=== PATIENT | male | born 1990 | race Caucasian/White ===

== ENCOUNTER 2016-04-03 22:23 | Inpatient (IN) | payer MEDICAID, OTHER ==
[~2016-04-03] VITALS: Ht 157.5 cm; Wt 100.2 kg
[~2016-04-03 22:23] MED LIST: HYDR-3498 PO
[2016-04-04] VITALS (14 sets, daily range): BP systolic 109–152; BP diastolic 60–87; PULSE 96–108; RESP 19–20
[2016-04-04] MEDS ORDERED: HYDROmorphONE 1 MG/ML SYG IV PRN (02:00)
[2016-04-04] MEDS ORDERED: HYDROCODONE/APAP (5/325) TAB PO PRN ×3 (02:00→06:00)
[2016-04-04] MEDS: HYDROmorphONE 2 MG/ML SYG IM PRN ×5 (02:42→19:54)
[2016-04-04] MEDS ORDERED: ACETAMINOPHEN 325 MG TAB PO PRN (06:00)
[2016-04-04] MEDS ORDERED: ZOLPIDEM 5 MG TAB PO PRN (06:00)
[2016-04-04] MEDS ORDERED: LIDOCAINE 1% (MDV) 20 ML INJ SC ONE (06:00)
[2016-04-04] MEDS ORDERED: NACL 0.9% 3 ML SYG IV SCH (06:00)
[2016-04-04] MEDS ORDERED: DOCUSATE SODIUM 100 MG CAP PO PRN (06:00)
[2016-04-04] MEDS ORDERED: ONDANSETRON 4 MG INJ IV PRN (06:00)
[2016-04-04] MEDS ORDERED: morphine 2 MG INJ IV PRN (06:00)
[2016-04-04] MEDS ORDERED: LEVOFLOXACIN 750MG/D5W (PMX) 150 ML IVPB SCH (07:00)
[2016-04-04] MEDS ORDERED: VANCOMYCIN IV PER PHARMACY XX SCH (07:00)
[2016-04-04] MEDS: ENOXAPARIN 40 MG/0.4 ML SYG SC SCH (08:41)
--- NOTE | 2016-04-04 09:20 | HP ---
DATE OF ADMISSION: 04/04/2016 TIME: 6 a.m. CHIEF COMPLAINT: Fevers and chills. HISTORY OF PRESENT ILLNESS: The patient is a 26-year-old male with a history of spina bifida with d ebility as well as a history of right lower extremity chronic wound, quadriplegia as a result of spi na bifida, recurrent UTIs, history of hydrocephalus status post V-P shunt with multiple revisions. The patient states that he began to notice fevers and chills yesterday. The patient does self-radha terize. The patient was hospitalized here in September 2015 for sepsis from UTI. The patient does state that his urine looks cloudy. The patient was transferred from outside facility, was noted to have tachycardia as well as leukocytosis. The patient has no other complaints at this time. PAST MEDICAL HISTORY: As per HPI. HOME MEDICATIONS: [place]. ALLERGIES: MULTIPLE, TO: 1. ACETAMINOPHEN. 2. CEFOTAXIME. 3. HYDROCODONE. 4. IBUPROFEN. 5. LATEX. 6. OXYCODONE. 7. PAPAYA. 8. ZOSYN. 9. TAZOBACTAM. FAMILY HISTORY: Noncontributory. SOCIAL HISTORY: No reports of alcohol, tobacco, or drug abuse. REVIEW OF SYSTEMS: A 12-point review of systems negative except that discussed in HPI. PHYSICAL EXAMINATION: VITAL SIGNS: Temperature is 98.2, pulse 101, respiratory rate is 19, BP is 116/70, saturation 94% o n room air. GENERAL: No acute distress, alert, and oriented. HEENT: Normocephalic, atraumatic. LUNGS: Clear to auscultation. CARDIOVASCULAR: Tachycardic. ABDOMEN: Nondistended, nontender, soft. EXTREMITIES: No clubbing, cyanosis, or edema. LABORATORIES: Not available at this time. ASSESSMENT AND PLAN: 1. Sepsis, likely secondary to urinary tract infection. The patient does have a history of multipl e episodes of sepsis from UTI. The patient was last hospitalized here in September of 2015 for a similar diagnosis. Will obtain a UA. Last culture grew Enterococcus and was treated with vancomycin and L evaquin. This will be initiated once a PICC line is placed, and the patient has been unable to get IV access. Will also consider ID consultation in the a.m. 2. History of spina bifida with quadriplegia and urinary incontinence. The patient will continue t o self-catheterize. 3. History of hydrocephalus status post V-P shunt, no acute issues. 4. Prophylaxis. Lovenox. Dictated By: CHRISTOPH STEPHENSON MD BS/NTS Conf#: [id number] DID#: [id number]
[2016-04-04] MEDS ORDERED: VANCOMYCIN 2 GM in SOD CHLORIDE 0.9% 500 ML IVPB SCH (12:00)
--- NOTE | 2016-04-04 13:56 | CONS ---
DATE OF ADMISSION: 04/04/2016 DATE OF CONSULTATION: 04/04/2016 TYPE OF CONSULTATION: Infectious Disease. REASON FOR CONSULTATION: Antibiotic management. HISTORY OF PRESENT ILLNESS: Kunal is a 26-year-old male, well known to us from numerous previous ad missions, who comes in now with fever and chills and is being seen for antibiotic management. His p roblems include: 1. Spina bifida with debility. 2. History of right lower extremity chronic wound. 3. Paraplegia as a result of the spina bifida. 4. Recurrent UTIs. 5. History of hydrocephalus status post GALLERY INTERN shunt with multiple revisions. The patient self-catheterizes. He was last hospitalized in September 2015 for sepsis from UTI. He notic ed fever and chills yesterday as well as the fact that his urine became cloudy. He also became tach ycardic and was brought to the emergency room. His white count is pending, though it was described as being elevated. PAST MEDICAL HISTORY: Operations as outlined. FAMILY HISTORY: Noncontributory. SOCIAL HISTORY: Does not smoke, drink or abuse drugs. ALLERGIES: 1. ACETAMINOPHEN. 2. CEFOTAXIME. 3. IBUPROFEN. 4. HYDROCODONE. 5. LATEX. 6. OXYCODONE. 7. PAPAYA. 8. ZOSYN. . REVIEW OF SYSTEMS: Noncontributory. PHYSICAL EXAMINATION: GENERAL: The patient is a chronically ill-appearing male who is alert, responsive, in no a cute distress. VITAL SIGNS: Stable. He is afebrile. SKIN: Without generalized rash. HEENT: Within normal limits. NECK: Supple. LYMPH NODES: None palpable. CHEST: Decreased breath sounds at the bases. HEART: Without murmur or gallop. ABDOMEN: Soft, nontender, without organosplenomegaly or masses. EXTREMITIES: Without cyanosis, clubbing, or edema. RECTAL AND GENITAL: Deferred. NEUROLOGIC EVALUATION: The patient has paraplegia. IMPRESSION AND PLAN: The patient grew enterococcus on his last visit. We will start on vancomycin and Levaquin. We will place a PICC line. I will dictate my findings to the hospitalist. Dictated By: DIAN ROUSSEAU MD, JD/BRADY Conf#: [id number] DID#: [id number]
[2016-04-04] MEDS: LEVOFLOXACIN 750MG/D5W (PMX) 150 ML IVPB SCH ×2 (17:00→18:19)
--- NOTE | 2016-04-04 17:47 | RADRPT ---
PROCEDURE: US guidance for PICC line CLINICAL INDICATION: PICC line placement TECHNIQUE: Multiple real-time images were acquired of the patient's arm utilizing a high resolutio n transducer. This was performed by the PICC line nurse for venous access. COMPARISON: None FINDINGS: Ultrasound guidance for PICC line placement. IMPRESSION: Ultrasound guidance for PICC line placement. RPTAT: AA .Lanre Burch MD, MD Date Time Electronically viewed and signed by .Lanre Burch MD, on 04/04/2016 17:46 .S/
--- NOTE | 2016-04-04 17:57 | RADRPT ---
PROCEDURE: XR Chest. CLINICAL INDICATION: Check PICC line position. TECHNIQUE: Single frontal view. COMPARISON: 10/13/2015. FINDINGS: There is a right arm PICC line with the tip in the right internal jugular vein. There is a left juan ed BRIM STRETCHER shunt catheter. There are low lung volumes. The lungs are otherwise clear. The heart size is normal. There is no pleural effusion. There is no pneumothorax. IMPRESSION: 1. Right arm PICC line tip in the right internal jugular vein. 2. Left sided BRIM STRETCHER shunt catheter. 3. Low lung volumes. 4. Otherwise unremarkable study. Results given to the PICC line nurse following the study. RPTAT: QQ .Avery Vizcarra MD, MD Date Time Electronically viewed and signed by .Avery Vizcarra MD, on 04/04/2016 17:56 .R/
[2016-04-04] MEDS: VANCOMYCIN 2 GM in SOD CHLORIDE 0.9% 500 ML IVPB SCH (18:00)
--- NOTE | 2016-04-04 18:05 | RADRPT ---
PROCEDURE: XR Chest. CLINICAL INDICATION: Check PICC line position. TECHNIQUE: Single frontal view. COMPARISON: Prior study done earlier the same day. FINDINGS: There is a right arm PICC line with the tip in the right internal jugular vein as seen previously. There is a left sided SECURITY COMPLIANCE SPECIALIST shunt catheter. There are low lung volumes. The lungs are otherwise clear . The heart size is normal. There is no pleural effusion. There is no pneumothorax. IMPRESSION: 1. Right arm PICC line tip in the right internal jugular vein as seen previously. 2. Left sided SECURITY COMPLIANCE SPECIALIST shunt catheter. 3. Low lung volumes. 4. Otherwise unremarkable study. RPTAT: QQ .Avery Vizcarra MD, MD Date Time Electronically viewed and signed by .Avery Vizcarra MD, MD on 04/04/2016 18:05 .R/
--- NOTE | 2016-04-04 18:07 | RADRPT ---
PROCEDURE: XR Chest. CLINICAL INDICATION: Check PICC line position. TECHNIQUE: Single frontal view. COMPARISON: Prior study done earlier the same day. FINDINGS: There is a right arm PICC line with the tip in the lower superior vena cava. There is a left COLLECTOR OF PORT jamey nt catheter. There are low lung volumes. The lungs are otherwise clear. The heart size is normal. There is no pleural effusion. There is no pneumothorax. IMPRESSION: 1. Satisfactory position of right arm PICC line. 2. No other change from the prior study done earlier the same day. RPTAT: QQ .Avery Vizcarra MD, Date Time Electronically viewed and signed by .Avery Vizcarra MD, on 04/04/2016 18:07 .R/
[2016-04-04 20:20] LABS: BASOPHILS % 0.3 % (0.0-2.0); EOSINOPHILS # 0.6 10^3/ul (0.0-0.5); EOSINOPHILS % 5.8 % (0.0-7.0); HEMATOCRIT 26.3 % (42.0-52.0); HEMOGLOBIN 8.6 g/dl (14.0-18.0); LYMPHOCYTES # 2.9 10^3/ul (0.8-2.9); LYMPHOCYTES % 26.4 % (15.0-51.0); MEAN CORPUSCULAR HEMOGLOBIN 27.4 pg (29.0-33.0); MEAN CORPUSCULAR HGB CONC 32.5 g/dl (32.0-37.0); MEAN CORPUSCULAR VOLUME 84.4 fl (82.0-101.0); MEAN PLATELET VOLUME 7.3 fl (7.4-10.4); MONOCYTE # 0.7 10^3/ul (0.3-0.9); NEUTROPHIL # 6.8 10^3/ul (1.6-7.5); NEUTROPHILS % 61.5 % (39.0-77.0); PLATELET COUNT 399 10^3/UL (140-440); RED BLOOD COUNT 3.12 10^6/ul (4.70-6.10); RED CELL DISTRIBUTION WIDTH 17.3 % (11.5-14.5)
[2016-04-04 20:26] LABS: CONDITION 1; LH ANALYZER COMMENTS 1
[2016-04-04 20:28] LABS: POTASSIUM 3.2 mmol/L (3.5-5.1)
[2016-04-04 20:31] LABS: CREATININE 0.49 mg/dl (0.61-1.24)
[2016-04-04] MEDS: HYDROmorphONE 2 MG/ML SYG IV PRN (23:27)
[2016-04-04] MEDS ORDERED: MAGNESIUM SULFATE 4 GM/100 ML 100 ML IVPB ONE (23:30)
[2016-04-05] VITALS (11 sets, daily range): BP systolic 117–128; BP diastolic 55–62; PULSE 85–100; RESP 16–20
[2016-04-05] MEDS: HYDROmorphONE 2 MG/ML SYG IV PRN ×6 (03:33→23:54)
[2016-04-05] MEDS: VANCOMYCIN 2 GM in SOD CHLORIDE 0.9% 500 ML IVPB SCH ×2 (05:53→18:02)
[2016-04-05 06:14] LABS: BASOPHILS % 0.4 % (0.0-2.0); EOSINOPHILS # 0.7 10^3/ul (0.0-0.5); EOSINOPHILS % 6.4 % (0.0-7.0); HEMATOCRIT 28.1 % (42.0-52.0); HEMOGLOBIN 9.4 g/dl (14.0-18.0); LYMPHOCYTES % 25.6 % (15.0-51.0); MEAN CORPUSCULAR HEMOGLOBIN 28.4 pg (29.0-33.0); MEAN CORPUSCULAR HGB CONC 33.6 g/dl (32.0-37.0); MEAN CORPUSCULAR VOLUME 84.5 fl (82.0-101.0); MEAN PLATELET VOLUME 7.2 fl (7.4-10.4); MONOCYTE # 0.8 10^3/ul (0.3-0.9); NEUTROPHILS % 60.6 % (39.0-77.0); PLATELET COUNT 423 10^3/UL (140-440); RED BLOOD COUNT 3.32 10^6/ul (4.70-6.10); UNCORRECTED WBC 11.6 10^3/ul (4.8-10.8); WHITE BLOOD COUNT 11.6 10^3/ul (4.8-10.8)
[2016-04-05 06:15] LABS: ALBUMIN 3.4 g/dl (3.3-4.9); POTASSIUM 3.9 mmol/L (3.5-5.1)
[2016-04-05 06:17] LABS: BILIRUBIN,INDIRECT 0.2 mg/dl (0-1.1); BILIRUBIN,TOTAL 0.2 mg/dl (0.2-1.3); CREATININE 0.45 mg/dl (0.61-1.24)
[2016-04-05 06:18] LABS: ALBUMIN/GLOBULIN RATIO 0.85; CALCIUM 8.6 mg/dl (8.4-10.2); TOTAL PROTEIN 7.4 g/dl (6.1-8.1)
[2016-04-05 06:19] LABS: CONDITION 1; LH ANALYZER COMMENTS 1
--- NOTE | 2016-04-05 09:41 | PN ---
Date/Time of Note Date/Time of Note DATE: 04/05/16 TIME: 09:35 Assessment/Plan VTE Prophylaxis VTE Prophylaxis Intervention: LMWH Lines/Catheters IV Catheter Type (from Nrsg): PICC Line Central line still needed: Yes Assessment/Plan Chief Complaint/Hosp Course Assessment and plan 1. Sepsis secondary to UTI. Follow-up on urine culture. ID consulted. Continue on antibiotics per ID recommendations 2. History of spina bifida with quadriplegia and urinary incontinence. Continue to turn every 2 and as needed to prevent decubitus ulcers. patient for self- catheterization. 3. History of hydrocephalus. Patient is status post FURNITURE MOVER shunt. No acute issues at this time. We'll monitor DVT prophylaxis: Lovenox Disposition and plan: PICC line placement continue antibiotics. Monitor for fever. Antipyretics as needed. Discharge him medically stable and cleared by consultants Discussed plan care of Dr. Alexander Problems: Subjective 24 Hr Interval Summary Free Text/Dictation comfortable at this time. denies any pain Exam/Review of Systems Vital Signs Vitals Vital Signs Date Time Temp Pulse Resp B/P Pulse Ox O2 Delivery O2 Flow Rate FiO2 04/05/16 08:42 85 04/05/16 07:13 98.3 18 120/58 96 04/04/16 01:10 Room Air Intake and Output 04/04/16 04/04/16 04/05/16 15:00 23:00 07:00 Intake Total 860 ml 500 ml Output Total 90 ml 300 ml Balance 770 ml 200 ml Exam General: [No acute signs or symptoms of distress] Eyes: [pupils equal round, Anicteric sclera] Neck: Supple nontender, no JVD Cardiac: [S1, S2 auscultated, regular rhythm and rate] Pulmonary: [No coarse rhonchi or breathing auscultated] GI: [Abdomen soft nontender nondistended, bowel sounds active] Extremities: edema right lower extremity Skin: right medial ankle blister (appears to be healing) Neurologic: [Alert to person place and time and situation] Results Result Diagram: 04/05/16 0511 04/05/16 0511 Results 24 hrs Laboratory Tests Test 04/04/16 19:20 04/04/16 22:02 04/05/16 05:11 Anion Gap 16 17 H Basophils # 0.0 0.0 Basophils % 0.3 0.4 Blood Morphology Comment Blood Urea Nitrogen 15 15 Calcium Level 8.0 L 8.6 Carbon Dioxide Level 23 25 Chloride Level 98 103 Creatinine 0.49 L 0.45 L Eosinophils # 0.6 H 0.7 H Eosinophils % 5.8 6.4 Glucose Level 338 H 97 # Hematocrit 26.3 #L 28.1 L Hemoglobin 8.6 #L 9.4 L Lymphocytes # 2.9 3.0 H Lymphocytes % 26.4 25.6 Magnesium Level 1.0 L Mean Corpuscular Hemoglobin 27.4 L 28.4 L Mean Corpuscular Hemoglobin Concent 32.5 33.6 Mean Corpuscular Volume 84.4 84.5 Mean Platelet Volume 7.3 L 7.2 L Monocytes # 0.7 0.8 Monocytes % 6.0 7.0 Neutrophils # 6.8 7.0 Neutrophils % 61.5 60.6 Nucleated Red Blood Cells # 0.0 0.0 Nucleated Red Blood Cells % 0.0 0.0 Platelet Count 399 # 423 Potassium Level 3.2 L 3.9 Red Blood Count 3.12 #L 3.32 L Red Cell Distribution Width 17.3 H 17.0 H Sodium Level 134 L 141 White Blood Count 11.0 H 11.6 H Bedside Glucose 89 Alanine Aminotransferase (ALT/SGPT) 87 H Albumin 3.4 Albumin/Globulin Ratio 0.85 Alkaline Phosphatase 174 H Aspartate Amino Transf (AST/SGOT) 80 H Direct Bilirubin 0.00 Globulin 4.00 H Indirect Bilirubin 0.2 Total Bilirubin 0.2 Total Protein 7.4 Medications Medications Current Medications Acetaminophen/ Hydrocodone Bitart ([place] (5/325)) 1 tab Q4H PRN PO PAIN; Start 04/04/16 at 03:00 Ondansetron HCl (Zofran Inj) 4 mg Q6H PRN IV NAUSEA AND/OR VOMITING; Start 04/04 at 06:00 Acetaminophen (Tylenol Tab) 650 mg Q6H PRN PO PAIN LEVEL 1-3 OR FEVER; Start at 06:00 Acetaminophen/ Hydrocodone Bitart ([place] (5/325)) 1 tab Q6H PRN PO MODERATE PAIN LEVEL 4-6; Start 04/04/16 at 06:00 Morphine Sulfate (morphine) 2 mg Q4H PRN IV SEVERE PAIN LEVEL 7-10 Last administered on 04/04/16t 18:41; Admin Dose 2 MG; Start 04/04/16 at 06:00 Docusate Sodium (Colace) 100 mg Q12H PRN PO CONSTIPATION; Start 04/04/16 at 06: 00 Zolpidem Tartrate (Ambien) 5 mg QHS PRN PO SLEEP; Start 04/04/16 at 06:00 Enoxaparin Sodium 40 mg 40 mg DAILY SC Last administered on 04/04/16 08:41; Admin Dose 40 MG; Start 04/04/16 at 09:00 Levofloxacin/ Dextrose 150 ml @ 100 mls/hr Q24H IVPB Last administered on 18:19; Admin Dose 100 MLS/HR; Start 04/04/16 at 17:00 Vancomycin HCl/ Sodium Chloride (Vancocin/NS) 500 ml @ 125 mls/hr Q12H IVPB Last administered on 04/05/16 05:53; Admin Dose 125 MLS/HR; Start 04/04/16 at 18: 00 IV Flush (NS 10 ml) 10 ml PRN PRN IV FLUSH LINE; Start 04/04/16 at 19:00 Hydromorphone HCl (Dilaudid) 2 mg Q4H PRN IV PAIN Last administered on 07:53; Admin Dose 2 MG; Start 04/04/16 at 22:30 GIOVANI TAVERAS Apr 05, 2016 09:41
[2016-04-05] MEDS: ENOXAPARIN 40 MG/0.4 ML SYG SC SCH (10:01)
--- NOTE | 2016-04-05 13:53 | CONS ---
Date/Time of Note Date/Time of Note DATE: 04/05/16 TIME: 13:50 Consult Date/Type/Reason Admit Date/Time Apr 04, 2016 at 01:20 Initial Consult Date Type of Consultation: ID Subjective no events, alert, feels good, nad Objective Vital Signs Date Time Temp Pulse Resp B/P Pulse Ox O2 Delivery O2 Flow Rate FiO2 04/05/16 12:29 93 04/05/16 11:14 98.0 18 122/57 96 04/04/16 01:10 Room Air Intake and Output 04/04/16 04/04/16 04/05/16 15:00 23:00 07:00 Intake Total 860 ml 500 ml Output Total 90 ml 300 ml Balance 770 ml 200 ml Results/Medications Result Diagram: 04/05/16 0511 04/05/16 0511 Results 24 hrs Laboratory Tests Test 04/04/16 19:20 04/04/16 22:02 04/05/16 05:11 Anion Gap 16 17 H Basophils # 0.0 0.0 Basophils % 0.3 0.4 Blood Morphology Comment Blood Urea Nitrogen 15 15 Calcium Level 8.0 L 8.6 Carbon Dioxide Level 23 25 Chloride Level 98 103 Creatinine 0.49 L 0.45 L Eosinophils # 0.6 H 0.7 H Eosinophils % 5.8 6.4 Glucose Level 338 H 97 # Hematocrit 26.3 #L 28.1 L Hemoglobin 8.6 #L 9.4 L Lymphocytes # 2.9 3.0 H Lymphocytes % 26.4 25.6 Magnesium Level 1.0 L Mean Corpuscular Hemoglobin 27.4 L 28.4 L Mean Corpuscular Hemoglobin Concent 32.5 33.6 Mean Corpuscular Volume 84.4 84.5 Mean Platelet Volume 7.3 L 7.2 L Monocytes # 0.7 0.8 Monocytes % 6.0 7.0 Neutrophils # 6.8 7.0 Neutrophils % 61.5 60.6 Nucleated Red Blood Cells # 0.0 0.0 Nucleated Red Blood Cells % 0.0 0.0 Platelet Count 399 # 423 Potassium Level 3.2 L 3.9 Red Blood Count 3.12 #L 3.32 L Red Cell Distribution Width 17.3 H 17.0 H Sodium Level 134 L 141 White Blood Count 11.0 H 11.6 H Bedside Glucose 89 Alanine Aminotransferase (ALT/SGPT) 87 H Albumin 3.4 Albumin/Globulin Ratio 0.85 Alkaline Phosphatase 174 H Aspartate Amino Transf (AST/SGOT) 80 H Direct Bilirubin 0.00 Globulin 4.00 H Indirect Bilirubin 0.2 Total Bilirubin 0.2 Total Protein 7.4 Medications Current Medications Acetaminophen/ Hydrocodone Bitart ([place] (5/325)) 1 tab Q4H PRN PO PAIN; Start 04/04/16 at 03:00 Ondansetron HCl (Zofran Inj) 4 mg Q6H PRN IV NAUSEA AND/OR VOMITING; Start 04/04 at 06:00 Acetaminophen (Tylenol Tab) 650 mg Q6H PRN PO PAIN LEVEL 1-3 OR FEVER; Start at 06:00 Acetaminophen/ Hydrocodone Bitart ([place] (5/325)) 1 tab Q6H PRN PO MODERATE PAIN LEVEL 4-6; Start 04/04/16 at 06:00 Morphine Sulfate (morphine) 2 mg Q4H PRN IV SEVERE PAIN LEVEL 7-10 Last administered on 04/04/16 18:41; Admin Dose 2 MG; Start 04/04/16 at 06:00 Docusate Sodium (Colace) 100 mg Q12H PRN PO CONSTIPATION; Start 04/04/16 at 06: 00 Zolpidem Tartrate (Ambien) 5 mg QHS PRN PO SLEEP; Start 04/04/16 at 06:00 Enoxaparin Sodium 40 mg 40 mg DAILY SC Last administered on 04/05/16 10:01; Admin Dose 40 MG; Start 04/04/16 at 09:00 Levofloxacin/ Dextrose 150 ml @ 100 mls/hr Q24H IVPB Last administered on 18:19; Admin Dose 100 MLS/HR; Start 04/04/16 at 17:00 Vancomycin HCl/ Sodium Chloride (Vancocin/NS) 500 ml @ 125 mls/hr Q12H IVPB Last administered on 04/05/16 05:53; Admin Dose 125 MLS/HR; Start 04/04/16 at 18: 00 IV Flush (NS 10 ml) 10 ml PRN PRN IV FLUSH LINE; Start 04/04/16 at 19:00 Hydromorphone HCl (Dilaudid) 2 mg Q4H PRN IV PAIN Last administered on 1/6/ 17at 12:09; Admin Dose 2 MG; Start 04/04/16 at 22:30 Assessment/Plan Chief Complaint/Hosp Course Abx: Luke Pruitt PHYSICAL EXAMINATION: GENERAL: This is a morbidly obese young man who is in no distress. HEENT: Head atraumatic, normocephalic. Sclerae anicteric. Buccal mucosa dry. NECK: Obese. Trachea midline. CHEST: Rise symmetrical. Breath sounds clear. HEART: S1, S2. ABDOMEN: Soft, bowel sounds present. EXTREMITIES: With bilateral edema. ASSESSMENT: 1. SIRS. 2. Multiple chronic wounds. 3. Morbid obesity. 4. History of spina bifida. PLAN: Stable, will order urine cx, continue abx for now, local wound care DW staff Problems: PAT RODRIGUEZ NP Apr 05, 2016 13:53
[2016-04-05 17:08] LABS: ADD UMIC YES; URINE BILIRUBIN (Dip) NEGATIVE (NEGATIVE); URINE BLOOD (Dip) 2+ (NEGATIVE); URINE GLUCOSE (Dip) NEGATIVE (NEGATIVE); URINE KETONES (Dip) NEGATIVE (NEGATIVE); URINE LEUKOCYTE ESTERASE (Dip) 1+ (NEGATIVE); URINE NITRITE (Dip) POSITIVE (NEGATIVE); URINE TOTAL PROTEIN (Dip) NEGATIVE (NEGATIVE); URINE UROBILINOGEN (Dip) 0.2 E.U./dL (0.1-1.0)
[2016-04-05 17:11] LABS: URINE COLOR YELLOW (YELLOW)
[2016-04-05 17:15] LABS: BACTERIA,URINE MANY; TRANSITIONAL EPI CELLS,URINE FEW
[2016-04-06] VITALS (12 sets, daily range): BP systolic 111–141; BP diastolic 53–79; PULSE 90–117; RESP 17–20
[2016-04-06] MEDS: HYDROmorphONE 2 MG/ML SYG IV PRN ×5 (03:53→20:07)
[2016-04-06] MEDS: VANCOMYCIN 2 GM in SOD CHLORIDE 0.9% 500 ML IVPB SCH ×2 (05:53→20:08)
[2016-04-06] MEDS: ENOXAPARIN 40 MG/0.4 ML SYG SC SCH (09:32)
--- NOTE | 2016-04-06 14:23 | CONS ---
Date/Time of Note Date/Time of Note DATE: 04/06/16 TIME: 14:22 Consult Date/Type/Reason Admit Date/Time Apr 04, 2016 at 01:20 Type of Consultation: ID Subjective awake, looks comfortable, no fevers, no n/v/d Objective Vital Signs Date Time Temp Pulse Resp B/P Pulse Ox O2 Delivery O2 Flow Rate FiO2 04/06/16 12:18 117 04/06/16 11:32 98.1 17 132/63 96 04/04/16 01:10 Room Air Intake and Output 04/05/16 04/05/16 04/06/16 15:00 23:00 07:00 Intake Total 950 ml 575 ml Output Total 420 ml Balance 950 ml 155 ml Results/Medications Result Diagram: 04/05/16 0511 04/05/16 0511 Medications Current Medications Acetaminophen/ Hydrocodone Bitart ([place] (5/325)) 1 tab Q4H PRN PO PAIN; Start 04/04/16 at 03:00 Ondansetron HCl (Zofran Inj) 4 mg Q6H PRN IV NAUSEA AND/OR VOMITING; Start 04/04 at 06:00 Acetaminophen (Tylenol Tab) 650 mg Q6H PRN PO PAIN LEVEL 1-3 OR FEVER; Start at 06:00 Acetaminophen/ Hydrocodone Bitart ([place] (5/325)) 1 tab Q6H PRN PO MODERATE PAIN LEVEL 4-6; Start 04/04/16 at 06:00 Morphine Sulfate (morphine) 2 mg Q4H PRN IV SEVERE PAIN LEVEL 7-10 Last administered on 04/04/16 18:41; Admin Dose 2 MG; Start 04/04/16 at 06:00 Docusate Sodium (Colace) 100 mg Q12H PRN PO CONSTIPATION; Start 04/04/16 at 06: 00 Zolpidem Tartrate (Ambien) 5 mg QHS PRN PO SLEEP; Start 04/04/16 at 06:00 Enoxaparin Sodium 40 mg 40 mg DAILY SC Last administered on 04/06/16 09:32; Admin Dose 40 MG; Start 04/04/16 at 09:00 Levofloxacin/ Dextrose 150 ml @ 100 mls/hr Q24H IVPB Last administered on 18:19; Admin Dose 100 MLS/HR; Start 04/04/16 at 17:00 Vancomycin HCl/ Sodium Chloride (Vancocin/NS) 500 ml @ 125 mls/hr Q12H IVPB Last administered on 04/06/16 05:53; Admin Dose 125 MLS/HR; Start 04/04/16 at 18: 00 IV Flush (NS 10 ml) 10 ml PRN PRN IV FLUSH LINE; Start 04/04/16 at 19:00 Hydromorphone HCl (Dilaudid) 2 mg Q4H PRN IV PAIN Last administered on 12:01; Admin Dose 2 MG; Start 04/04/16 at 22:30 Miscellaneous Information (*Rx Drug Level Order Reminder*) VANCO TR LEVEL PRIOR... ONCE ONCE XX ; Start 04/06/16 at 17:00; Stop 04/06/16 at 17:01 Assessment/Plan Chief Complaint/Hosp Course Abx: Vanco, Levaquin PHYSICAL EXAMINATION: GENERAL: This is a morbidly obese young man who is in no distress. HEENT: Head atraumatic, normocephalic. Sclerae anicteric. Buccal mucosa dry. NECK: Obese. Trachea midline. CHEST: Rise symmetrical. Breath sounds clear. HEART: S1, S2. ABDOMEN: Soft, bowel sounds present. EXTREMITIES: With bilateral edema. ASSESSMENT: 1. SIRS. 2. GNR UTI 3. Multiple chronic wounds. 4. Morbid obesity. 5. History of spina bifida. PLAN: Remains stable, pending urine cx, continue abx, local wound care DW staff Problems: PAT RODRIGUEZ NP Apr 06, 2016 14:23
--- NOTE | 2016-04-06 15:16 | PN ---
Date/Time of Note Date/Time of Note DATE: 04/06/16 TIME: 15:14 Assessment/Plan VTE Prophylaxis VTE Prophylaxis Intervention: LMWH Lines/Catheters IV Catheter Type (from Nrsg): PICC Line Central line still needed: Yes Assessment/Plan Chief Complaint/Hosp Course Assessment and plan 1. Sepsis secondary to UTI. Follow-up on urine culture. ID consulted. Continue on antibiotics per ID recommendations 2. History of spina bifida with quadriplegia and urinary incontinence. Continue to turn every 2 and as needed to prevent decubitus ulcers. patient for self- catheterization. 3. History of hydrocephalus. Patient is status post BALANCER shunt. No acute issues at this time. We'll monitor DVT prophylaxis: Lovenox Disposition and plan: awaiting final urine culture. cont abx per ID. d/c when medically stable and cleared by consultants. Discussed plan care of Dr. Alexander Problems: Subjective 24 Hr Interval Summary Free Text/Dictation no s/s of distress. denies any pain at this time. Exam/Review of Systems Vital Signs Vitals Vital Signs Date Time Temp Pulse Resp B/P Pulse Ox O2 Delivery O2 Flow Rate FiO2 04/06/16 15:12 98.0 113 17 111/71 97 04/04/16 01:10 Room Air Intake and Output 04/05/16 04/05/16 04/06/16 14:59 22:59 06:59 Intake Total 950 ml 450 ml Output Total 420 ml Balance 950 ml 30 ml Exam General: No acute signs or symptoms of distress Eyes: pupils equal round, Anicteric sclera Neck: Supple nontender, no JVD Cardiac: S1, S2 auscultated, regular rhythm and rate Pulmonary: No coarse rhonchi or breathing auscultated GI: Abdomen soft nontender nondistended, bowel sounds active Extremities: edema right lower extremity Skin: right medial ankle blister (appears to be healing) Neurologic: Alert to person place and time and situation Results Result Diagram: 04/05/16 0504/05/16 0511 Medications Medications Current Medications Acetaminophen/ Hydrocodone Bitart ([place] (5/325)) 1 tab Q4H PRN PO PAIN; Start 04/04/16 at 03:00 Ondansetron HCl (Zofran Inj) 4 mg Q6H PRN IV NAUSEA AND/OR VOMITING; Start 04/04 at 06:00 Acetaminophen (Tylenol Tab) 650 mg Q6H PRN PO PAIN LEVEL 1-3 OR FEVER; Start at 06:00 Acetaminophen/ Hydrocodone Bitart ([place] (5/325)) 1 tab Q6H PRN PO MODERATE PAIN LEVEL 4-6; Start 04/04/16 at 06:00 Morphine Sulfate (morphine) 2 mg Q4H PRN IV SEVERE PAIN LEVEL 7-10 Last administered on 04/04/16 18:41; Admin Dose 2 MG; Start 04/04/16 at 06:00 Docusate Sodium (Colace) 100 mg Q12H PRN PO CONSTIPATION; Start 04/04/16 at 06: 00 Zolpidem Tartrate (Ambien) 5 mg QHS PRN PO SLEEP; Start 04/04/16 at 06:00 Enoxaparin Sodium 40 mg 40 mg DAILY SC Last administered on 04/06/16 09:32; Admin Dose 40 MG; Start 04/04/16 at 09:00 Levofloxacin/ Dextrose 150 ml @ 100 mls/hr Q24H IVPB Last administered on 18:19; Admin Dose 100 MLS/HR; Start 04/04/16 at 17:00 Vancomycin HCl/ Sodium Chloride (Vancocin/NS) 500 ml @ 125 mls/hr Q12H IVPB Last administered on 04/06/16 05:53; Admin Dose 125 MLS/HR; Start 04/04/16 at 18: 00 IV Flush (NS 10 ml) 10 ml PRN PRN IV FLUSH LINE; Start 04/04/16 at 19:00 Hydromorphone HCl (Dilaudid) 2 mg Q4H PRN IV PAIN Last administered on 12:01; Admin Dose 2 MG; Start 04/04/16 at 22:30 Miscellaneous Information (*Rx Drug Level Order Reminder*) VANCO TR LEVEL PRIOR... ONCE ONCE XX ; Start 04/06/16 at 17:00; Stop 04/06/16 at 17:01 GIOVANI TAVERAS Apr 06, 2016 15:16
[2016-04-06] MEDS: LEVOFLOXACIN 750MG/D5W (PMX) 150 ML IVPB SCH (16:25)
[2016-04-07] VITALS (13 sets, daily range): BP systolic 122–143; BP diastolic 63–69; PULSE 93–112; RESP 16–20
[2016-04-07] MEDS: HYDROmorphONE 2 MG/ML SYG IV PRN ×6 (00:07→20:50)
[2016-04-07] MEDS ORDERED: VANCOMYCIN 1.75 GM in NS 500 ML IVPB SCH (08:00)
[2016-04-07] MEDS: ENOXAPARIN 40 MG/0.4 ML SYG SC SCH (08:54)
--- NOTE | 2016-04-07 10:07 | PN ---
Date/Time of Note Date/Time of Note DATE: 04/07/16 TIME: 10:05 Assessment/Plan VTE Prophylaxis VTE Prophylaxis Intervention: LMWH Lines/Catheters IV Catheter Type (from Nrsg): PICC Line Central line still needed: Yes Assessment/Plan Chief Complaint/Hosp Course Assessment and plan 1. Sepsis secondary to UTI. Urine culture did show multiple drug-resistant bacteria: KLEBSIELLA OZAENAE.. Continue on antibiotics per ID recommendations 2. History of spina bifida with quadriplegia and urinary incontinence. Continue to turn every 2 and as needed to prevent decubitus ulcers. patient for self- catheterization. 3. History of hydrocephalus. Patient is status post WRITING TUTOR shunt. No acute issues at this time. We'll monitor DVT prophylaxis: Lovenox Disposition and plan: Patient with noted multiresistant bacteria in the urine. Follow-up with ID recommendations for antibiotic regimen. Discharge when medically stable and cleared by consultants Discussed plan care of Dr. Alexander Problems: Subjective 24 Hr Interval Summary Free Text/Dictation No signs or symptoms of distress this time. Remains comfortable Exam/Review of Systems Vital Signs Vitals Vital Signs Date Time Temp Pulse Resp B/P Pulse Ox O2 Delivery O2 Flow Rate FiO2 04/07/16 08:16 94 04/07/16 07:28 98.3 18 129/69 94 04/04/16 01:10 Room Air Intake and Output 04/06/16 04/06/16 04/07/16 15:00 23:00 07:00 Intake Total 1450 ml 500 ml Balance 1450 ml 500 ml Exam General: No acute signs or symptoms of distress Eyes: pupils equal round, Anicteric sclera Neck: Supple nontender, no JVD Cardiac: S1, S2 auscultated, regular rhythm and rate Pulmonary: No coarse rhonchi or breathing auscultated GI: Abdomen soft nontender nondistended, bowel sounds active Extremities: edema right lower extremity Skin: right medial ankle blister (appears to be healing) Neurologic: Alert to person place and time and situation Results Result Diagram: 04/05/16 0511 04/05/1611 Results 24 hrs Laboratory Tests Test 04/06/16 17:20 Vancomycin Level Trough 18.3 Medications Medications Current Medications Acetaminophen/ Hydrocodone Bitart ([place] (5/325)) 1 tab Q4H PRN PO PAIN; Start 04/04/16 at 03:00 Ondansetron HCl (Zofran Inj) 4 mg Q6H PRN IV NAUSEA AND/OR VOMITING; Start 04/04 at 06:00 Acetaminophen (Tylenol Tab) 650 mg Q6H PRN PO PAIN LEVEL 1-3 OR FEVER; Start at 06:00 Acetaminophen/ Hydrocodone Bitart ([place] (5/325)) 1 tab Q6H PRN PO MODERATE PAIN LEVEL 4-6; Start 04/04/16 at 06:00 Morphine Sulfate (morphine) 2 mg Q4H PRN IV SEVERE PAIN LEVEL 7-10 Last administered on 04/04/16 18:41; Admin Dose 2 MG; Start 04/04/16 at 06:00 Docusate Sodium (Colace) 100 mg Q12H PRN PO CONSTIPATION; Start 04/04/16 at 06: 00 Zolpidem Tartrate (Ambien) 5 mg QHS PRN PO SLEEP; Start 04/04/16 at 06:00 Enoxaparin Sodium 40 mg 40 mg DAILY SC Last administered on 04/07/16 08:54; Admin Dose 40 MG; Start 04/04/16 at 09:00 Levofloxacin/ Dextrose (Levaquin 750 Mg/ D5W 150 ml (Pmx)) 150 ml @ 100 mls/hr Q24H IVPB Last administered on 04/06/16 16:25; Admin Dose 100 MLS/HR; Start 04/04/16 at 17:00 IV Flush (NS 10 ml) 10 ml PRN PRN IV FLUSH LINE; Start 04/04/16 at 19:00 Hydromorphone HCl 2 mg 2 mg Q4H PRN IV PAIN Last administered on 04/07/16 08:49 ; Admin Dose 2 MG; Start 04/04/16 at 22:30 Vancomycin HCl/ Sodium Chloride (Vancocin/NS) 250 ml @ 83.333 mls/ hr Q12H IVPB ; Start 04/07/16 at 11:00 GIOVANI TAVERAS Apr 07, 2016 10:07
[2016-04-07] MEDS ORDERED: VANCOMYCIN 1.5 GM in SOD CHLORIDE 0.9% 250 ML IVPB SCH (11:00)
[2016-04-07] MEDS ORDERED: ERTAPENEM SODIUM 0.5 GM in SOD CHLORIDE 0.9% 100 ML IVPB ONE (13:00)
--- NOTE | 2016-04-07 14:16 | CONS ---
Date/Time of Note Date/Time of Note DATE: 04/07/16 TIME: 14:14 Consult Date/Type/Reason Admit Date/Time Apr 04, 2016 at 01:20 Type of Consultation: ID Subjective no acute changes, alert, feel good, no fevers Objective Vital Signs Date Time Temp Pulse Resp B/P Pulse Ox O2 Delivery O2 Flow Rate FiO2 04/07/16 12:30 107 04/07/16 11:31 98.1 17 134/66 97 04/04/16 01:10 Room Air Intake and Output 04/06/16 04/06/16 04/07/16 15:00 23:00 07:00 Intake Total 1450 ml 500 ml Balance 1450 ml 500 ml Results/Medications Result Diagram: 04/05/16 0511 04/05/16 0511 Results 24 hrs Laboratory Tests Test 04/06/16 17:20 Vancomycin Level Trough 18.3 Medications Current Medications Acetaminophen/ Hydrocodone Bitart ([place] (5/325)) 1 tab Q4H PRN PO PAIN; Start 04/04/16 at 03:00 Ondansetron HCl (Zofran Inj) 4 mg Q6H PRN IV NAUSEA AND/OR VOMITING; Start 04/04 at 06:00 Acetaminophen (Tylenol Tab) 650 mg Q6H PRN PO PAIN LEVEL 1-3 OR FEVER; Start at 06:00 Acetaminophen/ Hydrocodone Bitart ([place] (5/325)) 1 tab Q6H PRN PO MODERATE PAIN LEVEL 4-6; Start 04/04/16 at 06:00 Morphine Sulfate (morphine) 2 mg Q4H PRN IV SEVERE PAIN LEVEL 7-10 Last administered on 04/04/16 18:41; Admin Dose 2 MG; Start 04/04/16 at 06:00 Docusate Sodium (Colace) 100 mg Q12H PRN PO CONSTIPATION; Start 04/04/16 at 06: 00 Zolpidem Tartrate (Ambien) 5 mg QHS PRN PO SLEEP; Start 04/04/16 at 06:00 Enoxaparin Sodium (Lovenox) 40 mg DAILY SC Last administered on 04/07/16 08:54 ; Admin Dose 40 MG; Start 04/04/16 at 09:00 IV Flush (NS 10 ml) 10 ml PRN PRN IV FLUSH LINE; Start 04/04/16 at 19:00 Hydromorphone HCl (Dilaudid) 2 mg Q4H PRN IV PAIN Last administered on t 12:43; Admin Dose 2 MG; Start 04/04/16 at 22:30 Assessment/Plan Chief Complaint/Hosp Course Abx: Luke Pruitt PHYSICAL EXAMINATION: GENERAL: This is a morbidly obese young man who is in no distress. HEENT: Head atraumatic, normocephalic. Sclerae anicteric. Buccal mucosa dry. NECK: Obese. Trachea midline. CHEST: Rise symmetrical. Breath sounds clear. HEART: S1, S2. ABDOMEN: Soft, bowel sounds present. EXTREMITIES: With bilateral edema. ASSESSMENT: 1. SIRS. 2. MDR GNR UTI 3. Multiple chronic wounds. 4. Morbid obesity. 5. History of spina bifida. 6. ALL: Zosyn, Cefotaxime PLAN: Remains stable, will change abx to Invanz, continue local wound care DW staff Problems: PAT RODRIGUEZ NP Apr 07, 2016 14:15
[2016-04-08] VITALS (11 sets, daily range): BP systolic 109–158; BP diastolic 65–77; PULSE 96–108; RESP 17–20
[2016-04-08] MEDS: HYDROmorphONE 2 MG/ML SYG IV PRN ×6 (00:31→23:35)
[2016-04-08] MEDS: ENOXAPARIN 40 MG/0.4 ML SYG SC SCH (08:46)
[2016-04-08] MEDS ORDERED: ERTA1VIA IV (10:26)
--- NOTE | 2016-04-08 10:31 | PDOCDIS ---
Discharge Instructions DIAGNOSIS Discharge Diagnosis: 1. multi-drug resistant uti 2. hx spina bifida CONDITION Patient Condition: Stable HOME CARE INSTRUCTIONS: Diet Instructions: Low Fat /CholesterolSpecial Diet: Regular diet FOLLOW UP/APPOINTMENTS Appointments 1. Follow up with your primary care provider in one week GIOVANI TAVERAS Apr 08, 2016 10:31
[2016-04-08 10:38] LABS: BASOPHILS % 0.3 % (0.0-2.0); EOSINOPHILS # 0.8 10^3/ul (0.0-0.5); EOSINOPHILS % 6.3 % (0.0-7.0); HEMATOCRIT 29.1 % (42.0-52.0); HEMOGLOBIN 9.6 g/dl (14.0-18.0); LYMPHOCYTES # 3.3 10^3/ul (0.8-2.9); LYMPHOCYTES % 27.5 % (15.0-51.0); MEAN CORPUSCULAR HEMOGLOBIN 28.1 pg (29.0-33.0); MEAN CORPUSCULAR HGB CONC 33.2 g/dl (32.0-37.0); MEAN CORPUSCULAR VOLUME 84.6 fl (82.0-101.0); MEAN PLATELET VOLUME 7.2 fl (7.4-10.4); MONOCYTE # 0.8 10^3/ul (0.3-0.9); MONOCYTES % 6.3 % (0.0-11.0); NEUTROPHIL # 7.2 10^3/ul (1.6-7.5); NEUTROPHILS % 59.6 % (39.0-77.0); PLATELET COUNT 400 10^3/UL (140-440); RED BLOOD COUNT 3.44 10^6/ul (4.70-6.10); RED CELL DISTRIBUTION WIDTH 18.6 % (11.5-14.5); UNCORRECTED WBC 12.1 10^3/ul (4.8-10.8); WHITE BLOOD COUNT 12.1 10^3/ul (4.8-10.8)
[2016-04-08 10:47] LABS: CREATININE 0.53 mg/dl (0.61-1.24)
[2016-04-08 10:48] LABS: CALCIUM 8.8 mg/dl (8.4-10.2)
[2016-04-08 10:49] LABS: CONDITION 1; LH ANALYZER COMMENTS 1
[2016-04-08 11:34] LABS: ALBUMIN 3.6 g/dl (3.3-4.9)
[2016-04-08 11:37] LABS: BILIRUBIN,INDIRECT 0.2 mg/dl (0-1.1); BILIRUBIN,TOTAL 0.2 mg/dl (0.2-1.3); TOTAL PROTEIN 7.7 g/dl (6.1-8.1)
--- NOTE | 2016-04-08 12:19 | CONS ---
Date/Time of Note Date/Time of Note DATE: 04/08/16 TIME: 12:18 Consult Date/Type/Reason Admit Date/Time Apr 04, 2016 at 01:20 Type of Consultation: ID Subjective no acute changes, sleeping, no fevers, na d Objective Vital Signs Date Time Temp Pulse Resp B/P Pulse Ox O2 Delivery O2 Flow Rate FiO2 04/08/16 11:34 98.4 99 17 109/65 93 Intake and Output 04/07/16 04/07/16 04/08/16 15:00 23:00 07:00 Intake Total 600 ml 900 ml Output Total 300 ml 300 ml Balance 300 ml 600 ml Results/Medications Result Diagram: 04/08/1658 04/08/16 0958 Results 24 hrs Laboratory Tests Test 04/08/16 09:58 Alanine Aminotransferase (ALT/SGPT) 52 Albumin 3.6 Alkaline Phosphatase 170 H Anion Gap 17 H Aspartate Amino Transf (AST/SGOT) 35 Basophils # 0.0 Basophils % 0.3 Blood Morphology Comment Blood Urea Nitrogen 14 Calcium Level 8.8 Carbon Dioxide Level 29 Chloride Level 100 Creatinine 0.53 L Direct Bilirubin 0.00 Eosinophils # 0.8 H Eosinophils % 6.3 Glucose Level 110 Hematocrit 29.1 L Hemoglobin 9.6 L Indirect Bilirubin 0.2 Lymphocytes # 3.3 H Lymphocytes % 27.5 Mean Corpuscular Hemoglobin 28.1 L Mean Corpuscular Hemoglobin Concent 33.2 Mean Corpuscular Volume 84.6 Mean Platelet Volume 7.2 L Monocytes # 0.8 Monocytes % 6.3 Neutrophils # 7.2 Neutrophils % 59.6 Nucleated Red Blood Cells # 0.0 Nucleated Red Blood Cells % 0.0 Platelet Count 400 Potassium Level 4.0 Red Blood Count 3.44 L Red Cell Distribution Width 18.6 H Sodium Level 142 Total Bilirubin 0.2 Total Protein 7.7 White Blood Count 12.1 H Medications Current Medications Acetaminophen/ Hydrocodone Bitart ([place] (5/325)) 1 tab Q4H PRN PO PAIN; Start 04/04/16 at 03:00 Ondansetron HCl (Zofran Inj) 4 mg Q6H PRN IV NAUSEA AND/OR VOMITING Last administered on 04/08/16t 04:37; Admin Dose 4 MG; Start 04/04/16 at 06:00 Acetaminophen (Tylenol Tab) 650 mg Q6H PRN PO PAIN LEVEL 1-3 OR FEVER; Start at 06:00 Acetaminophen/ Hydrocodone Bitart ([place] (5/325)) 1 tab Q6H PRN PO MODERATE PAIN LEVEL 4-6; Start 04/04/16 at 06:00 Morphine Sulfate (morphine) 2 mg Q4H PRN IV SEVERE PAIN LEVEL 7-10 Last administered on 04/04/16 18:41; Admin Dose 2 MG; Start 04/04/16 at 06:00 Docusate Sodium (Colace) 100 mg Q12H PRN PO CONSTIPATION; Start 04/04/16 at 06: 00 Zolpidem Tartrate (Ambien) 5 mg QHS PRN PO SLEEP; Start 04/04/16 at 06:00 Enoxaparin Sodium (Lovenox) 40 mg DAILY SC Last administered on 04/08/16 08:46 ; Admin Dose 40 MG; Start 04/04/16 at 09:00 IV Flush (NS 10 ml) 10 ml PRN PRN IV FLUSH LINE; Start 04/04/16 at 19:00 Hydromorphone HCl (Dilaudid) 2 mg Q4H PRN IV PAIN Last administered on 08:40; Admin Dose 2 MG; Start 04/04/16 at 22:30 Assessment/Plan Chief Complaint/Hosp Course Abx: INvanz PHYSICAL EXAMINATION: GENERAL: This is a morbidly obese young man who is in no distress. HEENT: Head atraumatic, normocephalic. Sclerae anicteric. Buccal mucosa dry. NECK: Obese. Trachea midline. CHEST: Rise symmetrical. Breath sounds clear. HEART: S1, S2. ABDOMEN: Soft, bowel sounds present. EXTREMITIES: With bilateral edema. ASSESSMENT: 1. SIRS. 2. MDR GNR UTI 3. Multiple chronic wounds. 4. Morbid obesity. 5. History of spina bifida. 6. ALL: Zosyn, Cefotaxime PLAN: Remains stable, continue abx for 7 days, local wound care/off load DW staff Problems: PAT RODRIGUEZ NP Apr 08, 2016 12:19
[2016-04-09 01:05] VITALS: BP 137/65; RESP 19
[2016-04-09] MEDS: HYDROmorphONE 2 MG/ML SYG IV PRN ×3 (03:33→12:01)
[2016-04-09 06:24] LABS: POTASSIUM 4.3 mmol/L (3.5-5.1)
[2016-04-09 06:26] LABS: CREATININE 0.47 mg/dl (0.61-1.24)
[2016-04-09 06:27] LABS: BASOPHILS % 0.3 % (0.0-2.0); CALCIUM 9.2 mg/dl (8.4-10.2); EOSINOPHILS # 0.8 10^3/ul (0.0-0.5); EOSINOPHILS % 6.9 % (0.0-7.0); HEMATOCRIT 29.9 % (42.0-52.0); HEMOGLOBIN 9.8 g/dl (14.0-18.0); LYMPHOCYTES # 3.2 10^3/ul (0.8-2.9); LYMPHOCYTES % 28.9 % (15.0-51.0); MEAN CORPUSCULAR HGB CONC 32.9 g/dl (32.0-37.0); MEAN CORPUSCULAR VOLUME 84.9 fl (82.0-101.0); MEAN PLATELET VOLUME 7.1 fl (7.4-10.4); MONOCYTE # 0.8 10^3/ul (0.3-0.9); MONOCYTES % 7.2 % (0.0-11.0); NEUTROPHIL # 6.4 10^3/ul (1.6-7.5); NEUTROPHILS % 56.7 % (39.0-77.0); PLATELET COUNT 391 10^3/UL (140-440); RED BLOOD COUNT 3.52 10^6/ul (4.70-6.10); UNCORRECTED WBC 11.2 10^3/ul (4.8-10.8); WHITE BLOOD COUNT 11.2 10^3/ul (4.8-10.8)
[2016-04-09 06:34] LABS: CONDITION 1; LH ANALYZER COMMENTS 1
[2016-04-09 07:28] VITALS: BP 133/79; RESP 18
[2016-04-09] MEDS: ENOXAPARIN 40 MG/0.4 ML SYG SC SCH (07:58)
[2016-04-09] MEDS ORDERED: ERTAPENEM SODIUM 1 GM in SOD CHLORIDE 0.9% 100 ML IVPB SCH (12:00)
--- NOTE | 2016-04-09 13:12 | PN ---
Date/Time of Note Date/Time of Note LATE ENTRY DATE: 04/08/16 Assessment/Plan VTE Prophylaxis VTE Prophylaxis Intervention: LMWH Lines/Catheters IV Catheter Type (from Nrs): PICC Line Central line still needed: Yes Urinary Cath still in place: No Assessment/Plan Chief Complaint/Hosp Course Assessment and plan 1. Sepsis secondary to UTI. Urine culture did show multiple drug-resistant bacteria: KLEBSIELLA OZAENAE.. Continue on antibiotics per ID recommendations 2. History of spina bifida with quadriplegia and urinary incontinence. Continue to turn every 2 and as needed to prevent decubitus ulcers. patient for self- catheterization. 3. History of hydrocephalus. 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 No acute issues at this time. We'll monitor DVT prophylaxis: Lovenox Disposition and plan: d/c planning. d/c when cleared by consultants Discussed plan care of Problems: Subjective 24 Hr Interval Summary Free Text/Dictation no s/s of distress Exam/Review of Systems Vital Signs Vitals Vital Signs Date Time Temp Pulse Resp B/P Pulse Ox O2 Delivery O2 Flow Rate FiO2 04/09/16 07:28 98.1 89 18 133/79 95 Intake and Output 04/08/16 04/08/16 04/09/16 15:00 23:00 07:00 Intake Total 650 ml Balance 650 ml Exam General: No acute signs or symptoms of distress Eyes: pupils equal round, Anicteric sclera Neck: Supple nontender, no JVD Cardiac: S1, S2 auscultated, regular rhythm and rate Pulmonary: No coarse rhonchi or breathing auscultated GI: Abdomen soft nontender nondistended, bowel sounds active Extremities: edema right lower extremity Skin: right medial ankle blister (appears to be healing) Neurologic: Alert to person place and time and situation Results Result Diagram: 04/09/16 0530 04/09/16 0530 Results 24 hrs Laboratory Tests Test 04/09/16 05:30 Anion Gap 18 H Basophils # 0.0 Basophils % 0.3 Blood Morphology Comment Blood Urea Nitrogen 14 Calcium Level 9.2 Carbon Dioxide Level 30 Chloride Level 98 Creatinine 0.47 L Eosinophils # 0.8 H Eosinophils % 6.9 Glucose Level 104 Hematocrit 29.9 L Hemoglobin 9.8 L Lymphocytes # 3.2 H Lymphocytes % 28.9 Mean Corpuscular Hemoglobin 28.0 L Mean Corpuscular Hemoglobin Concent 32.9 Mean Corpuscular Volume 84.9 Mean Platelet Volume 7.1 L Monocytes # 0.8 Monocytes % 7.2 Neutrophils # 6.4 Neutrophils % 56.7 Nucleated Red Blood Cells # 0.0 Nucleated Red Blood Cells % 0.0 Platelet Count 391 Potassium Level 4.3 Red Blood Count 3.52 L Red Cell Distribution Width 18.0 H Sodium Level 142 White Blood Count 11.2 H Medications Medications Current Medications Acetaminophen/ Hydrocodone Bitart ([place] (5/325)) 1 tab Q4H PRN PO PAIN; Start 04/04/16 at 03:00 Ondansetron HCl (Zofran Inj) 4 mg Q6H PRN IV NAUSEA AND/OR VOMITING Last administered on 04/08/16 04:37; Admin Dose 4 MG; Start 04/04/16 at 06:00 Acetaminophen (Tylenol Tab) 650 mg Q6H PRN PO PAIN LEVEL 1-3 OR FEVER; Start at 06:00 Acetaminophen/ Hydrocodone Bitart ([place] (5/325)) 1 tab Q6H PRN PO MODERATE PAIN LEVEL 4-6; Start 04/04/16 at 06:00 Morphine Sulfate (morphine) 2 mg Q4H PRN IV SEVERE PAIN LEVEL 7-10 Last administered on 04/04/16 18:41; Admin Dose 2 MG; Start 04/04/16 at 06:00 Docusate Sodium (Colace) 100 mg Q12H PRN PO CONSTIPATION; Start 04/04/16 at 06: 00 Zolpidem Tartrate (Ambien) 5 mg QHS PRN PO SLEEP; Start 04/04/16 at 06:00 Enoxaparin Sodium (Lovenox) 40 mg DAILY SC Last administered on 04/09/16 07:58 ; Admin Dose 40 MG; Start 04/04/16 at 09:00 IV Flush (NS 10 ml) 10 ml PRN PRN IV FLUSH LINE; Start 04/04/16 at 19:00 Hydromorphone HCl 2 mg 2 mg Q4H PRN IV PAIN Last administered on 04/09/16 12: 01; Admin Dose 2 MG; Start 04/04/16 at 22:30 Ertapenem/Sodium Chloride (Invanz/NS) 100 ml @ 200 mls/hr Q24H IVPB Last administered on 04/09/16t 12:15; Admin Dose 200 MLS/HR; Start 04/09/16 at 12:00 GIOVANI TAVERAS Apr 09, 2016 13:12
--- NOTE | 2016-04-09 14:10 | DS ---
Date/Time of Note Date/Time of Note DATE: 04/09/16 TIME: 14:06 Discharge Summary Admission/Discharge Info Admit Date/Time Apr 04, 2016 at 01:20 Discharge Date/Time Final Diagnosis 1. Sepsis secondary to UTI. 2. History of spina bifida with quadriplegia and urinary incontinence. 3. History of hydrocephalus. Patient Condition: Stable Consults 1. Dr. Carlos Galvan Hospital Course This is a 26-year-old male with history of spina bifida with debility as well as right lower extremity chronic wound and quadriplegia from his spina bifida as well as recurrent UTI and history of hydrocephalus status post SPORTS MEDICINE MASSEUR shunt with multiple revisions who came to [facility] after reports of fevers and chills. Of note patient does self catheterize himself. He was of note also here in September 2015 for sepsis UTI. He did come back to [facility] due to the aforementioned issues. Patient was noted to have be with sepsis. He again had urinary tract infection with multidrug- resistant Klebsiella Ozaenae. Patient was again seen by infectious disease specialist. He was placed on appropriate antibiotics and he did have good response. His white blood cell count did downward trend and his fever did resolve. He was otherwise optimized medically. We did get wound care consult for his right ankle. We did continue with wound care per recommendations. During his course of stay did improve. He was instructed to follow-up with his primary care provider within a week. We did set the patient with home health services for antibiotic regimen. The plan of care was discussed with the patient and patient did verbalize understanding. On the day of discharge patient was in stable condition Discussed plan of care with Disposition: Home Home Meds Active Scripts Ertapenem Sodium (Invanz) 1 Gm Vial.port, 1 GM IV DAILY for 7 Days Prov:GIOVANI TAVERAS 04/08/16 Hydrocodone Bit-Acetaminophen* ([place]*) 5-325 Mg Tab, 1 TAB PO Q4H Y for PAIN, # 20 TAB Prov:BLADIMIR BROWER 10/20/15 Follow-up Plan CONDITION Patient Condition: Stable HOME CARE INSTRUCTIONS: Diet Instructions: Low Fat /CholesterolSpecial Diet: Regular diet FOLLOW UP/APPOINTMENTS Appointments 1. Follow up with your primary care provider in one week Pending Labs Laboratory Tests Test 04/09/16 05:30 Anion Gap 18 (8-16) Basophils # 0.010^3/ul (0.0-0.1) Basophils % 0.3% (0.0-2.0) Blood Morphology Comment Blood Urea Nitrogen 14mg/dl (7-20) Calcium Level 9.2mg/dl (8.4-10.2) Carbon Dioxide Level 30mmol/L (21-31) Chloride Level 98mmol/L (97-110) Creatinine 0.47mg/dl (0.61-1.24) Eosinophils # 0.810^3/ul (0.0-0.5) Eosinophils % 6.9% (0.0-7.0) Glucose Level 104mg/dl (70-220) Hematocrit 29.9% (42.0-52.0) Hemoglobin 9.8g/dl (14.0-18.0) Lymphocytes # 3.210^3/ul (0.8-2.9) Lymphocytes % 28.9% (15.0-51.0) Mean Corpuscular Hemoglobin 28.0pg (29.0-33.0) Mean Corpuscular Hemoglobin Concent 32.9g/dl (32.0-37.0) Mean Corpuscular Volume 84.9fl (82.0-101.0) Mean Platelet Volume 7.1fl (7.4-10.4) Monocytes # 0.810^3/ul (0.3-0.9) Monocytes % 7.2% (0.0-11.0) Neutrophils # 6.410^3/ul (1.6-7.5) Neutrophils % 56.7% (39.0-77.0) Nucleated Red Blood Cells # 0.010^3/ul (0.0-0.0) Nucleated Red Blood Cells % 0.0/100WBC (0.0-0.0) Platelet Count 79526^3/UL (140-440) Potassium Level 4.3mmol/L (3.5-5.1) Red Blood Count 3.5210^6/ul (4.70-6.10) Red Cell Distribution Width 18.0% (11.5-14.5) Sodium Level 142mmol/L (135-144) White Blood Count 11.210^3/ul (4.8-10.8) GIOVANI TAVERAS Apr 09, 2016 14:10
== END 2016-04-09 14:23 | disposition home health service (06) | DRG 871 ==
LOC: TEL 04-04 01:20 → PP2 04-09 01:00
PROVIDERS: ADMIT Internal Medicine; ATTEND Internal Medicine
PROC: 02HV33Z Insertion of Infusion Device into Superior Vena Cava, Percutaneous Approach (ICD-10-PCS; principal; 2016-04-04)
PROC: B548ZZA Ultrasonography of Superior Vena Cava, Guidance (ICD-10-PCS; 2016-04-04)
DX: A41.89 Other specified sepsis (principal); G82.50 Quadriplegia, unspecified; Q05.4 Unspecified spina bifida with hydrocephalus; Z68.41 Body mass index [BMI] 40.0-44.9, adult; G82.20 Paraplegia, unspecified; N39.0 Urinary tract infection, site not specified; B96.1 Klebsiella pneumoniae [K. pneumoniae] as the cause of diseases classified elsewhere; Z16.24 Resistance to multiple antibiotics; S91.001A Unspecified open wound, right ankle, initial encounter; X58.XXXA Exposure to other specified factors, initial encounter; E66.01 Morbid (severe) obesity due to excess calories; Z98.2 Presence of cerebrospinal fluid drainage device; Z87.440 Personal history of urinary (tract) infections; Z88.8 Allergy status to other drugs, medicaments and biological substances; Z91.040 Latex allergy status; Z91.018 Allergy to other foods; Z88.0 Allergy status to penicillin; Z88.5 Allergy status to narcotic agent; Z88.1 Allergy status to other antibiotic agents
CPT/HCPCS: 36569; 71010; 76937; 80048; 80053; 80076; 80202; 81001; 81003; 82962; 83735; 85025; 87070; 87081; 87086; A4310; C1769; J1170; J1335; J1650; J1956; J2270; J2405; J3370; J7040; J7050

== ENCOUNTER 2016-04-12 13:46 | Emergency (ER) | payer OTHER ==
[~2016-04-12] VITALS: Ht 165.1 cm; Wt 78.0 kg
[~2016-04-12 13:46] MED LIST changes: +ERTA1VIA IV
[2016-04-12 13:55] VITALS: Ht 165.1 cm; Wt 78.0 kg
[2016-04-12] MEDS ORDERED: ALTEPLASE (CATHFLO) 2 MG INJ CATHETER PRN (14:00)
[2016-04-12] MEDS ORDERED: OXYCODONE/ACETAMINOPHEN (5/325) TAB PO ONE (14:30)
[2016-04-12] MEDS ORDERED: LIDOCAINE 1% (MDV) 20 ML INJ SC ONE (15:30)
--- NOTE | 2016-04-12 16:52 | RADRPT ---
PROCEDURE: XR Chest. CLINICAL INDICATION: PICC line placement TECHNIQUE: PA and lateral chest x-ray. COMPARISON: 04/04/2016 at 05:57 p.m. FINDINGS: Right PICC line tip near atriocaval junction. There is hypoinflation of the lungs and bibasilar ate lectasis. Patchy infiltrates in the lower lungs are possible. The patient is rotated to the right. The heart is not enlarged. Tubing is projected over the right mid to lower chest. There is appea tavo of a left-sided ventriculoperitoneal shunt. IMPRESSION: Right PICC line tip near atriocaval junction. Please see above. RPTAT: HJES .Ozzy Kimble MD, Date Time Electronically viewed and signed by .Ozzy Kimble MD, on 04/12/2016 16:51 .S/
[2016-04-12] MEDS ORDERED: morphine 4 MG/ML VIAL IV STA (17:07)
[2016-04-12] MEDS ORDERED: ONDANSETRON 4 MG INJ IV STA (17:07)
[2016-04-12 17:19] LABS: BASOPHILS % 0.3 % (0.0-2.0); EOSINOPHILS # 0.5 10^3/ul (0.0-0.5); EOSINOPHILS % 4.7 % (0.0-7.0); HEMATOCRIT 31.1 % (42.0-52.0); HEMOGLOBIN 10.2 g/dl (14.0-18.0); LYMPHOCYTES % 26.3 % (15.0-51.0); MEAN CORPUSCULAR HEMOGLOBIN 27.6 pg (29.0-33.0); MEAN CORPUSCULAR HGB CONC 32.8 g/dl (32.0-37.0); MONOCYTE # 0.8 10^3/ul (0.3-0.9); MONOCYTES % 7.2 % (0.0-11.0); NEUTROPHILS % 61.5 % (39.0-77.0); PLATELET COUNT 379 10^3/UL (140-440); RED CELL DISTRIBUTION WIDTH 18.5 % (11.5-14.5); UNCORRECTED WBC 11.3 10^3/ul (4.8-10.8); WHITE BLOOD COUNT 11.3 10^3/ul (4.8-10.8)
[2016-04-12 17:25] LABS: CONDITION 1; LH ANALYZER COMMENTS 1
[2016-04-12 17:28] LABS: POTASSIUM 4.1 mmol/L (3.5-5.1)
[2016-04-12 17:30] LABS: CREATININE 0.65 mg/dl (0.61-1.24)
[2016-04-12 17:31] LABS: CALCIUM 9.1 mg/dl (8.4-10.2)
[2016-04-12 18:30] VITALS: BP 148/76; PULSE 106; RESP 18; TEMP 98.3
--- NOTE | 2016-04-12 18:33 | ERD ---
ER Documentation Chief Complaint Date/Time DATE: 04/12/16 TIME: 18:19 Chief Complaint PICC LINE NO WORKING HPI 26-year-old man with a history of lower extremity paralysis and recurrent urinary tract infections presents with thrombosed right upper extremity PICC line. He was unable to obtain his IV ertapenem today because of the PICC line complication. Patient denies fevers or chills, no chest pain or shortness of breath, no headache or blurry vision, although patient does have chronic pain syndrome and is requesting opioid analgesics. ROS All systems reviewed and are negative except as per history of present illness. Medications Home Meds Active Scripts Ertapenem Sodium (Invanz) 1 Gm Vial.port, 1 GM IV DAILY for 7 Days Prov:GIOVANI TAVERAS 04/08/16 Discontinued Scripts Hydrocodone Bit-Acetaminophen* ([place]*) 5-325 Mg Tab, 1 TAB PO Q4H Y for PAIN, # 20 TAB Prov:BLADIMIR BROWER 10/20/15 Allergies Allergies: Coded Allergies: cefotaxime (Verified Allergy, Intermediate, 04/12/16) latex (Verified Allergy, Intermediate, RASH, 04/12/16) ketorolac (Verified Allergy, Mild, RASH, 04/12/16) oxycodone (Verified Allergy, Mild, swelling of lips, 04/12/16) papaya (Verified Allergy, Mild, 04/12/16) piperacillin sodium (Verified Allergy, Mild, hives, 04/12/16) tazobactam sodium (Verified Allergy, Mild, hives, 04/12/16) acetaminophen (Verified Allergy, Unknown, RASH, 04/12/16) hydrocodone (Verified Allergy, Unknown, RASH, 04/12/16) ibuprofen (Verified Allergy, Unknown, LIP SWELLING, STATED THROAT IS CLOSING, 04/12/16) piperacillin (Unverified Allergy, Unknown, 04/12/16) tazobactam (Unverified Allergy, Unknown, 04/12/16) PMhx/Soc Chronic pain, opioid dependence, recurrent urinary tract infections, lower extremity paralysis 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) Anesthesia Reaction: No Hx Neurological Disorder: No (SPINAL BIFIDA) Hx Respiratory Disorders: No Hx Cardiac Disorders: Yes (HTN) Hx Psychiatric Problems: No Hx Alcohol Use: No Hx Substance Use: No Hx Tobacco Use: No Smoking Status: Never smoker FmHx Family History: No diabetes Physical Exam Vitals Vital Signs Date Time Temp Pulse Resp B/P Pulse Ox O2 Delivery O2 Flow Rate FiO2 04/12/16 17:27 98.3 106 18 128/81 97 High Flow 04/12/16 13:55 98.2 120 20 156/89 95 Physical Exam GENERAL: Well-developed, well-nourished, well-hydrated, in no apparent distress , looks nontoxic in appearance HEENT: Moist mucous membranes, pink conjunctiva, no cervical spine tenderness or step-off deformities, no goiter, no jaundice or icterus, extraocular movements intact without pain. No submandibular induration, and no pharyngeal erythema NEURO: Alert and oriented 3, cranial nerves II through XII intact bilaterally, pupils equal round reactive to light, paralyzed lower extremities bilaterally, sensation intact distally Strength 5/5 in upper and lower extremities bilaterally CARDIAC: Regular rate and rhythm, no murmurs rubs or gallops LUNGS: Clear bilaterally no wheezing crackles or stridor ABDOMEN: Soft nontender, no guarding, no rigidity, no rebound, no psoas sign no obturator sign. Normoactive bowel sounds SKIN: Warm and dry to touch, no abrasions, contusions, or hematomas, no lacerations, no ecchymosis, no target lesions, and without ulcers EXTREMITIES: No clubbing cyanosis or edema, calves are bilaterally symmetrical, no Homans sign, no popliteal cord sign. Distal pulses equal and bilateral PSYCH: Normal affect without agitation or irritability Result Diagram: 04/12/16 1707 04/12/16 1707 Results 24 hrs Laboratory Tests Test 04/12/16 17:07 Anion Gap 17 Basophils # 0.010^3/ul Basophils % 0.3% Blood Morphology Comment Blood Urea Nitrogen 16mg/dl Calcium Level 9.1mg/dl Carbon Dioxide Level 30mmol/L Chloride Level 102mmol/L Creatinine 0.65mg/dl Eosinophils # 0.510^3/ul Eosinophils % 4.7% Glucose Level 103mg/dl Hematocrit 31.1% Hemoglobin 10.2g/dl Lymphocytes # 3.010^3/ul Lymphocytes % 26.3% Mean Corpuscular Hemoglobin 27.6pg Mean Corpuscular Hemoglobin Concent 32.8g/dl Mean Corpuscular Volume 84.0fl Mean Platelet Volume 7.0fl Monocytes # 0.810^3/ul Monocytes % 7.2% Neutrophils # 7.010^3/ul Neutrophils % 61.5% Nucleated Red Blood Cells # 0.010^3/ul Nucleated Red Blood Cells % 0.0/100WBC Platelet Count 67909^3/UL Potassium Level 4.1mmol/L Red Blood Count 3.7010^6/ul Red Cell Distribution Width 18.5% Sodium Level 145mmol/L White Blood Count 11.310^3/ul Current Medications Medications (Trade) Dose Ordered Sig/Evaristo Route PRN Reason Start Time Stop Time Status Last Admin Dose Admin Alteplase, Recombinant (Cathflo (Activase)) 2 mg MAY REPEAT X1 PRN CATHETER IF CATHETER REMAINS OCCULUDED 04/12/16 14:00 04/12/16 14:12 Oxycodone/ Acetaminophen (Percocet (5/ 325)) 1 tab ONCE ONCE PO 04/12/16 14:30 04/12/16 14:31 DC Lidocaine (Xylocaine 1% (Mdv) 20 ml) 20 ml ONCE ONCE SC 04/12/16 15:30 04/12/16 15:31 DC 04/12/16 16:10 Morphine Sulfate (morphine) 4 mg ONCE STAT IV 04/12/16 17:07 04/12/16 17:08 DC 04/12/16 17:18 Ondansetron HCl (Zofran Inj) 4 mg ONCE STAT IV 04/12/16 17:07 04/12/16 17:08 DC 04/12/16 17:18 IV Flush (NS 10 ml) 10 ml PRN PRN IV IV PROTOCOL 04/12/16 17:30 Procedures/MDM CBC and electrolytes were within normal limits. I administered Cathflo to the PICC line without resolution of the thrombosis and obstruction. A new PICC line was placed and verified after obtaining both verbal and written consent. I administered ertapenem 1 g IV as well as morphine 4 mg IV and Zofran 4 mg IV. Patient's PICC line is now working properly he is received of his IV antibiotics and is without complaints of pain he will be discharged to follow- up with PMD and for continued home IV antibiotic administration as prescribed. Differential diagnoses considered, included but not limited to acute coronary syndrome, pulmonary embolism, aortic dissection, abdominal aortic aneurysm, sepsis, stroke, meningitis, encephalitis, pneumonia, appendicitis, cholecystitis , bowel obstruction, pyelonephritis, nephrolithiasis, cystitis, as well as metabolic, hematologic, and electrolyte abnormalities. As well as abscess, cellulitis, fractures, and dislocations. Patient feels much better at this time, and vital signs are normal, symptoms have improved. I did give strict instructions to return to the ED if symptoms continue or worsen, patient will otherwise follow-up with primary care physician. Patient understood instructions and agreed to plan. Departure Diagnosis: Primary Impression: UTI (urinary tract infection) Urinary tract infection type: acute cystitis Hematuria presence: without hematuria Qualified Code: N30.00 - Acute cystitis without hematuria Additional Impressions: Status post PICC central line placement Occlusion of peripherally inserted central catheter (PICC) line Encounter type: initial encounter Qualified Code: T82.898A - Occlusion of peripherally inserted central catheter (PICC) line, initial encounter Condition: Good Patient Instructions: Bladder Infection, Male (Adult) GLADYS PORTILLO MD Apr 12, 2016 18:33
== END 2016-04-12 19:59 | disposition home or self-care (01) ==
LOC: E/R 13:46
DX: N30.00 Acute cystitis without hematuria (principal); I10 Essential (primary) hypertension; Y82.8 Other medical devices associated with adverse incidents; Z91.040 Latex allergy status
CPT/HCPCS: 36415; 36569; 71010; 80048; 85025; 87040; 96374; 96375; C1769; J2270; J2405; J2997; Z7502; Z7610

== ENCOUNTER 2016-04-18 15:30 | Inpatient (IN) | payer OTHER ==
[~2016-04-18] VITALS: Ht 157.5 cm; Wt 110.0 kg
[~2016-04-18 15:30] MED LIST changes: -HYDR-3498 PO
[2016-04-18 19:05] VITALS: PULSE 90
[2016-04-18 19:57] VITALS: Ht 157.5 cm; Wt 110.0 kg
[2016-04-18 20:00] VITALS: PULSE 100
[2016-04-18 20:25] VITALS: BP 129/61; RESP 18
[2016-04-18] MEDS ORDERED: KETOROLAC 30 MG INJ IV PRN (20:30)
[2016-04-18] MEDS ORDERED: HYDROCODONE/APAP (10/325) TAB PO PRN (20:30)
[2016-04-18] MEDS: morphine 4 MG/ML VIAL IV PRN (20:58)
[2016-04-19] VITALS (12 sets, daily range): BP systolic 119–137; BP diastolic 61–77; PULSE 85–97; RESP 17–20
[2016-04-19] MEDS: morphine 4 MG/ML VIAL IV PRN ×6 (00:43→20:54)
[2016-04-19 06:13] LABS: ALBUMIN 3.5 g/dl (3.3-4.9); POTASSIUM 4.2 mmol/L (3.5-5.1)
[2016-04-19 06:16] LABS: ALBUMIN/GLOBULIN RATIO 0.81; BILIRUBIN,INDIRECT 0.3 mg/dl (0-1.1); BILIRUBIN,TOTAL 0.3 mg/dl (0.2-1.3); CALCIUM 8.7 mg/dl (8.4-10.2); CREATININE 0.5 mg/dl (0.61-1.24); TOTAL PROTEIN 7.8 g/dl (6.1-8.1)
[2016-04-19 06:28] LABS: BASOPHIL # 0.1 10^3/ul (0.0-0.1); BASOPHILS % 0.5 % (0.0-2.0); EOSINOPHILS # 0.8 10^3/ul (0.0-0.5); EOSINOPHILS % 6.5 % (0.0-7.0); HEMATOCRIT 31.8 % (42.0-52.0); HEMOGLOBIN 10.5 g/dl (14.0-18.0); LYMPHOCYTES # 4.7 10^3/ul (0.8-2.9); LYMPHOCYTES % 40.8 % (15.0-51.0); MEAN CORPUSCULAR HEMOGLOBIN 27.8 pg (29.0-33.0); MEAN CORPUSCULAR HGB CONC 32.9 g/dl (32.0-37.0); MEAN CORPUSCULAR VOLUME 84.5 fl (82.0-101.0); MEAN PLATELET VOLUME 7.2 fl (7.4-10.4); MONOCYTE # 0.7 10^3/ul (0.3-0.9); MONOCYTES % 6.1 % (0.0-11.0); NEUTROPHIL # 5.3 10^3/ul (1.6-7.5); NEUTROPHILS % 46.1 % (39.0-77.0); PLATELET COUNT 456 10^3/UL (140-440); RED BLOOD COUNT 3.76 10^6/ul (4.70-6.10); RED CELL DISTRIBUTION WIDTH 17.3 % (11.5-14.5); UNCORRECTED WBC 11.6 10^3/ul (4.8-10.8); WHITE BLOOD COUNT 11.6 10^3/ul (4.8-10.8)
[2016-04-19 06:51] LABS: CONDITION 1; LH ANALYZER COMMENTS 1
--- NOTE | 2016-04-19 10:19 | PN ---
Date/Time of Note Date/Time of Note DATE: 04/19/16 TIME: 10:12 Assessment/Plan VTE Prophylaxis VTE Prophylaxis Intervention: contraindicated (probable surgery) Lines/Catheters IV Catheter Type (from Nrsg): PICC Line Central line still needed: Yes (IV access/antibiotics) Assessment/Plan Chief Complaint/Hosp Course Hospitalist coverage- S: Pressure-like headache in the frontal region. No photophobia. No loss of speech vision or focal deficits. No weakness fever nausea vomiting. O: vss; sr PE: No pallor, adenopathy. Anisocoria. No droop. S2, no m/r/g CTAB Bs +, nt, nd, no R/R/G. Obese. Scars c/d/i Hypotonia, rt medial malleolus area w erythema and slight warmth. A/P 1. Headache. Stable, Rule out shunt malfunction. 2. Chronic hydrocephalus, 3. Chronic pain disorder 4. Failure to thrive; start Lovenox if no planned surgery or SPECIAL SERVICES COORDINATOR revision 5. Possible nonadherence 6. Probable neurogenic bladder 7. Recent mdr UTI Problems: Exam/Review of Systems Vital Signs Vitals Vital Signs Date Time Temp Pulse Resp B/P Pulse Ox O2 Delivery O2 Flow Rate FiO2 04/19/16 08:07 91 04/19/16 07:25 98.8 17 127/61 94 Intake and Output 04/18/16 04/18/16 04/19/16 15:00 23:00 07:00 Intake Total 900 ml Output Total 3 ml Balance 897 ml Exam Constitutional: alert Respiratory: clear to auscultation Cardiovascular: regular rate and rhythm Gastrointestinal: non-tender, soft Extremities: other Results Result Diagram: 04/19/16 0550 04/19/16 0550 Results 24 hrs Laboratory Tests Test 04/19/16 05:50 Alanine Aminotransferase (ALT/SGPT) 41 Albumin 3.5 Albumin/Globulin Ratio 0.81 Alkaline Phosphatase 134 H Anion Gap 17 H Aspartate Amino Transf (AST/SGOT) 58 H Basophils # 0.1 Basophils % 0.5 Blood Morphology Comment Blood Urea Nitrogen 15 Calcium Level 8.7 Carbon Dioxide Level 26 Chloride Level 102 Creatinine 0.50 L Direct Bilirubin 0.00 Eosinophils # 0.8 H Eosinophils % 6.5 Globulin 4.30 H Glucose Level 82 Hematocrit 31.8 L Hemoglobin 10.5 L Indirect Bilirubin 0.3 Lymphocytes # 4.7 H Lymphocytes % 40.8 Mean Corpuscular Hemoglobin 27.8 L Mean Corpuscular Hemoglobin Concent 32.9 Mean Corpuscular Volume 84.5 Mean Platelet Volume 7.2 L Monocytes # 0.7 Monocytes % 6.1 Neutrophils # 5.3 Neutrophils % 46.1 Nucleated Red Blood Cells # 0.0 Nucleated Red Blood Cells % 0.0 Platelet Count 456 #H Potassium Level 4.2 Red Blood Count 3.76 L Red Cell Distribution Width 17.3 H Sodium Level 141 Total Bilirubin 0.3 Total Protein 7.8 White Blood Count 11.6 H Medications Medications Current Medications Morphine Sulfate (morphine) 3 mg Q4H PRN IV PAIN Last administered on 09:57; Admin Dose 3 MG; Start 04/18/16 at 20:00 Ondansetron HCl (Zofran Inj) 4 mg Q6H PRN IV NAUSEA AND/OR VOMITING; Start at 20:30 CHRIS TOPETE MD Apr 19, 2016 10:19
[2016-04-19] MEDS ORDERED: ACETAMINOPHEN 325 MG TAB PO PRN (10:30)
[2016-04-19] MEDS ORDERED: ACETAMINOPHEN 650 MG SUPP PR PRN (10:30)
[2016-04-19] MEDS ORDERED: BISACODYL 10 MG SUPP PR PRN (10:30)
[2016-04-19] MEDS ORDERED: BISACODYL (EC) 5 MG TAB PO PRN (10:30)
[2016-04-19] MEDS ORDERED: NACL 0.9% 3 ML SYG IV SCH (10:30)
[2016-04-19] MEDS ORDERED: DOCUSATE SODIUM 100 MG CAP PO PRN (10:30)
--- NOTE | 2016-04-19 10:55 | RADRPT ---
PROCEDURE: CT Brain without contrast. CLINICAL INDICATION: Pain, headache TECHNIQUE: Routine CT scan of the brain was performed on a high resolution multi detector scanner without intravenous contrast. One or more of the following dose reduction techniques were used: Auto mated exposure control; Adjustment of the mA and/or kV according to patient size; Use of iterative r econstruction technique. CTDI = 44 mGy. DLP = 720 mGy-cm. COMPARISON: CT brain 04/13/2015 FINDINGS: Hemorrhage: No evidence of intracranial hemorrhage. Acute ischemic changes: No evidence of acute ischemic changes. Mass effect/Midline shift: None. Parenchymal volume: Mild central parenchymal volume loss is evident. Ventricular system: Minimal dilatation of the temporal horns with otherwise improved caliber of the bilateral lateral ventricles and third ventricle. Fourth ventricle is normal in caliber. Bilateral ventriculostomy catheters are present entering via parietal approaches and terminating within the ri ght lateral ventricle; the left ventriculostomy catheter traverses the left lateral ventricle. Chronic changes: Parenchymal attenuation is within normal limits. Partial visualization of at least low-lying cerebellar tonsils and enlargement of the foramen magnum, similar to the previous examinat ion. Extracranial soft tissues: Unremarkable. Calvarium: No fractures. Paranasal sinuses: Visualized paranasal sinuses are clear. Mastoid air cells: Visualized mastoid air cells are clear. IMPRESSION: No acute intracranial abnormalities. Improved ventricular caliber status post shunt revision and left-sided shunt placement. Unchanged appearance of enlargement of the foramen magnum and the incompletely visualized low-lying cerebellar tonsils. RPTAT: AADD .Mateo Cullen MD, MD Date Time Electronically viewed and signed by .Mateo Cullen MD, on 04/19/2016 10:55 .B/
--- NOTE | 2016-04-19 12:03 | CONS ---
Date/Time of Note Date/Time of Note DATE: 04/19/16 TIME: 11:51 Assessment/Plan Assessment/Plan Additional Assessment/Plan impression hx: spina bifida, depression, schizophrenia, hydrocephalus s/p bilat vps placement with multiple revision x 4-[address] Triplett ([facility]) Transferred to [facility] for further evaluation and possible Ventricular Atrial Shunt placement Denies abd pain Bifrontal METZGER "4/10" Neuro status at baseline CT brain (04/19/2016) appears stable Plan okay to feed will order bilat VPS series then finalize recs once completed. Plan discussed with patient who agrees. d/w Dr. Bernal Consultation Date/Type/Reason Admit Date/Time Apr 18, 2016 at 18:55 Date of Consultation: Apr 19, 2016 Type of Consultation: Neurosurgery Reason for Consultation Possible VPS Malfunction Hx of Present Illness Very pleasant 26 y/o male with pmh: Spina Bifida, depression, chronic headaches with hydrocephalus. Pt had VPS placement as a child but most recently underwent multiple bilateral PATTERN GENERATOR OPERATOR (Abd/Pleural) shunt placements with Dr. Triplett starting 2008 and most recent left vps revision was performed at [facility] by Dr. Triplett as well. Pt presents with bifrontal HAs. Per Dr. Triplett's notes states possible non functioning left vps due to "scarring in the peritoneal cavity not allowing enough surface for CSF absorption area." Dr. Triplett / Dr. Castelan (partner) did not feel comfortable performing ventricular atrial shunt and transfer was then requested. pmh/psx: per hpi/chart meds: see med recon ros: per hpi/chart Exam/Review of Systems Vital Signs Vitals Vital Signs Date Time Temp Pulse Resp B/P Pulse Ox O2 Delivery O2 Flow Rate FiO2 04/19/16 11:35 98.7 91 17 119/66 95 Intake and Output 04/18/16 04/18/16 04/19/16 15:00 23:00 07:00 Intake Total 900 ml Output Total 3 ml Balance 897 ml Exam Lungs: CTA Abd: Soft x 4 quad CV: RRR MS: AAOX4 CN: PERRL M: 5/5 strength to bilat UE, 0/5 bilat LE (baseline) Results Result Diagram: 04/19/16 0550 04/19/16 0550 Results 24 hrs Laboratory Tests Test 04/19/16 05:50 Alanine Aminotransferase (ALT/SGPT) 41 Albumin 3.5 Albumin/Globulin Ratio 0.81 Alkaline Phosphatase 134 H Anion Gap 17 H Aspartate Amino Transf (AST/SGOT) 58 H Basophils # 0.1 Basophils % 0.5 Blood Morphology Comment Blood Urea Nitrogen 15 Calcium Level 8.7 Carbon Dioxide Level 26 Chloride Level 102 Creatinine 0.50 L Direct Bilirubin 0.00 Eosinophils # 0.8 H Eosinophils % 6.5 Globulin 4.30 H Glucose Level 82 Hematocrit 31.8 L Hemoglobin 10.5 L Indirect Bilirubin 0.3 Lymphocytes # 4.7 H Lymphocytes % 40.8 Mean Corpuscular Hemoglobin 27.8 L Mean Corpuscular Hemoglobin Concent 32.9 Mean Corpuscular Volume 84.5 Mean Platelet Volume 7.2 L Monocytes # 0.7 Monocytes % 6.1 Neutrophils # 5.3 Neutrophils % 46.1 Nucleated Red Blood Cells # 0.0 Nucleated Red Blood Cells % 0.0 Platelet Count 456 #H Potassium Level 4.2 Red Blood Count 3.76 L Red Cell Distribution Width 17.3 H Sodium Level 141 Total Bilirubin 0.3 Total Protein 7.8 White Blood Count 11.6 H Medications Medications Current Medications Morphine Sulfate (morphine) 3 mg Q4H PRN IV PAIN Last administered on t 09:57; Admin Dose 3 MG; Start 04/18/16 at 20:00 Ondansetron HCl (Zofran Inj) 4 mg Q6H PRN IV NAUSEA AND/OR VOMITING; Start at 20:30 Acetaminophen (Tylenol Tab) 650 mg Q6H PRN PO PAIN LEVEL 1-3 OR FEVER; Start at 10:30 Acetaminophen (Tylenol Supp) 650 mg Q6H PRN AL PAIN LEVEL 1-3 OR FEVER; Start 04/19/16 at 10:30 Docusate Sodium (Colace) 100 mg Q12H PRN PO CONSTIPATION; Start 04/19/16 at 10: 30 Bisacodyl (Dulcolax) 5 mg DAILY PRN PO CONSTIPATION; Start 04/19/16 at 10:30 Bisacodyl (Dulcolax Supp) 10 mg DAILY PRN AL CONSTIPATION; Start 04/19/16 at 10 :30 Procedures Procedures [place] [id number] Radiology Main Line: [phone] DIAGNOSTIC IMAGING REPORT Patient: RUTH REDD : 1990 Age: 26 Sex: M [id number] DOS: 04/19/16 0925 Ordering MD: ALEX MOTA NP [place] [facility] [place] [facility] PROCEDURE: CT Brain without contrast. CLINICAL INDICATION: Pain, headache TECHNIQUE: Routine CT scan of the brain was performed on a high resolution multi detector scanner without intravenous contrast. One or more of the following dose reduction techniques were used: Automated exposure control; Adjustment of the mA and/or kV according to patient size; Use of iterative reconstruction technique. CTDI = 44 mGy. DLP = 720 mGy-cm. COMPARISON: CT brain 04/13/2015 FINDINGS: Hemorrhage: No evidence of intracranial hemorrhage. Acute ischemic changes: No evidence of acute ischemic changes. Mass effect/Midline shift: None. Parenchymal volume: Mild central parenchymal volume loss is evident. Ventricular system: Minimal dilatation of the temporal horns with otherwise improved caliber of the bilateral lateral ventricles and third ventricle. Fourth ventricle is normal in caliber. Bilateral ventriculostomy catheters are present entering via parietal approaches and terminating within the right lateral ventricle; the left ventriculostomy catheter traverses the left lateral ventricle. Chronic changes: Parenchymal attenuation is within normal limits. Partial visualization of at least low-lying cerebellar tonsils and enlargement of the foramen magnum, similar to the previous examination. Extracranial soft tissues: Unremarkable. Calvarium: No fractures. Paranasal sinuses: Visualized paranasal sinuses are clear. Mastoid air cells: Visualized mastoid air cells are clear. IMPRESSION: No acute intracranial abnormalities. Improved ventricular caliber status post shunt revision and left-sided shunt placement. Unchanged appearance of enlargement of the foramen magnum and the incompletely visualized low-lying cerebellar tonsils. RPTAT: AADD .Mateo Cullen MD, Date Time Electronically viewed and signed by .Mateo Cullen MD, on 04/19/2016 10:55 .B/ CC: ALEX MOTA NP, ARIEL G NP Apr 19, 2016 12:02
--- NOTE | 2016-04-19 18:42 | RADRPT ---
PROCEDURE: XR Shunt series CLINICAL INDICATION: CT scan location/integrity TECHNIQUE: Images taken include an AP and lateral view of the skull, an AP and lateral lateral vie w of the neck, an AP view of the chest and AP view of the abdomen and pelvis COMPARISON: To the study done earlier on the same date. FINDINGS: There is a right-sided ventriculostomy catheter enters through a the right posterior parietal lindsay h ole with the ventriculostomy directed medially and ventrally. There is again, a separation of the c atheter at the neck with a 9.5 cm gap. There is catheter coiled over the right thoracoabdominal junc tion. Another catheter projects to the far right lateral abdomen. A portion of the catheter which is projects to the right lateral abdomen and appears to end blindly at the inferior tip of the liver. A left sided DIRECTOR DATA MANAGEMENT shunt catheter appears intact. The ventriculostomy portion enters the c alvarium through a left posterior lindsay hole with tip directed medially and ventrally. The catheter continues along the right medial thorax and into the right medial abdomen and and crosses the midlin e above the pelvis with the tip lying within the right lateral abdomen. The bowel gas pattern is nonspecific. There is a spina bifida deformity and L3-L5. Surgical staple s are seen in the right upper quadrant of the abdomen. A right subclavian catheter is evident with the tip in the superior vena cava. There is deformity to the right ileum which may be a sequelae of previous infection or trauma. IMPRESSION: 1. The left sided DIRECTOR DATA MANAGEMENT shunt catheter is intact and crosses the midline to the right within the abdom en with the tip lying in the right lateral abdomen. 2. The right-sided DIRECTOR DATA MANAGEMENT shunt catheter appears discontinuous at the neck or there is a 9.5 cm gap and within the abdomen were there is a superiorly blind ending catheter within the right lateral abdome n and pelvis. There is a section of catheter coiled at the thoracoabdominal junction with another c atheter projecting to the superior abdomen laterally. 3. A right subclavian central venous catheter is seen in the implants. 4. Previous right upper quadrant abdominal surgery. 5. Spina bifida deformity 6. Deformity to the right ileum which may be a sequelae of previous infection or trauma. Yris Andrade Physician Date Time Electronically viewed and signed by Yris Andrade Physician on 04/19/2016 18:41 RH/
--- NOTE | 2016-04-19 18:46 | RADRPT ---
PROCEDURE: XR Shunt series CLINICAL INDICATION: CT scan location/integrity TECHNIQUE: Images taken include an AP and lateral view of the skull, an AP and lateral lateral view of the neck, an AP view of the chest and AP view of the abdomen and pelvis COMPARISON: To the study done earlier on the same date. FINDINGS: There is a right-sided ventriculostomy catheter enters through a the right posterior parietal lindsay h ole with the ventriculostomy directed medially and ventrally. There is again, a separation of the ca theter at the neck with a 9.5 cm gap. There is catheter coiled over the right thoracoabdominal junct ion. Another catheter projects to the far right lateral abdomen. A portion of the catheter which is projects to the right lateral abdomen and appears to end blindly at the inferior tip of th e liver. A left sided [employer] shunt catheter appears intact. The ventriculostomy portion enters the francisco rium through a left posterior lindsay hole with tip directed medially and ventrally. The catheter elyssa nues along the right medial thorax and into the right medial abdomen and and crosses the midline abo ve the pelvis with the tip lying within the right lateral abdomen. The bowel gas pattern is nonspecific. There is a spina bifida deformity and L3-L5. Surgical karissa are seen in the right upper quadrant of the abdomen. A right subclavian catheter is evident with the tip in the superior vena cava. There is deformity to the right ileum which may be a sequelae of previous infection or trauma. IMPRESSION: 1. The left sided [employer] shunt catheter is intact and crosses the midline to the right within the abdome n with the tip lying in the right lateral abdomen. 2. The right-sided [employer]ODU[employer] MIXER shunt catheter appears discontinuous at the neck or there is a 9.5 cm gap and within the abdomen were there is a superiorly blind ending catheter within the right lateral abdomen and pelvis. There is a section of catheter coiled at the thoracoabdominal junction with another cat heter projecting to the superior abdomen laterally. 3. A right subclavian central venous catheter is seen in the implants. 4. Previous right upper quadrant abdominal surgery. 5. Spina bifida deformity 6. Deformity to the right ileum which may be a sequelae of previous infection or trauma. Yris Andrade, Physician Date Time Electronically viewed and signed by Yris Andrade Physician on 04/19/2016 18:45 RH/
--- NOTE | 2016-04-19 18:46 | RADRPT ---
PROCEDURE: XR Shunt series CLINICAL INDICATION: CT scan location/integrity TECHNIQUE: Images taken include an AP and lateral view of the skull, an AP and lateral lateral view of the neck, an AP view of the chest and AP view of the abdomen and pelvis COMPARISON: To the study done earlier on the same date. FINDINGS: There is a right-sided ventriculostomy catheter enters through a the right posterior parietal lindsay h ole with the ventriculostomy directed medially and ventrally. There is again, a separation of the ca theter at the neck with a 9.5 cm gap. There is catheter coiled over the right thoracoabdominal junct ion. Another catheter projects to the far right lateral abdomen. A portion of the catheter which is projects to the right lateral abdomen and appears to end blindly at the inferior tip of th e liver. A left sided PRODUCTION SERVICE MANAGER shunt catheter appears intact. The ventriculostomy portion enters the francisco rium through a left posterior lindsay hole with tip directed medially and ventrally. The catheter elyssa nues along the right medial thorax and into the right medial abdomen and and crosses the midline abo ve the pelvis with the tip lying within the right lateral abdomen. The bowel gas pattern is nonspecific. There is a spina bifida deformity and L3-L5. Surgical karissa are seen in the right upper quadrant of the abdomen. A right subclavian catheter is evident with the tip in the superior vena cava. There is deformity to the right ileum which may be a sequelae of previous infection or trauma. IMPRESSION: 1. The left sided PRODUCTION SERVICE MANAGER shunt catheter is intact and crosses the midline to the right within the abdome n with the tip lying in the right lateral abdomen. 2. The right-sided PRODUCTION SERVICE MANAGER shunt catheter appears discontinuous at the neck or there is a 9.5 cm gap and within the abdomen were there is a superiorly blind ending catheter within the right lateral abdomen and pelvis. There is a section of catheter coiled at the thoracoabdominal junction with another cat heter projecting to the superior abdomen laterally. 3. A right subclavian central venous catheter is seen in the implants. 4. Previous right upper quadrant abdominal surgery. 5. Spina bifida deformity 6. Deformity to the right ileum which may be a sequelae of previous infection or trauma. Yris Andrade Physician Date Time Electronically viewed and signed by Yris Andrade Physician on 04/19/2016 18:46 RH/
--- NOTE | 2016-04-19 18:47 | RADRPT ---
PROCEDURE: XR Shunt series CLINICAL INDICATION: CT scan location/integrity TECHNIQUE: Images taken include an AP and lateral view of the skull, an AP and lateral lateral view of the neck, an AP view of the chest and AP view of the abdomen and pelvis COMPARISON: To the study done earlier on the same date. FINDINGS: There is a right-sided ventriculostomy catheter enters through a the right posterior parietal lindsay h ole with the ventriculostomy directed medially and ventrally. There is again, a separation of the ca theter at the neck with a 9.5 cm gap. There is catheter coiled over the right thoracoabdominal junct ion. Another catheter projects to the far right lateral abdomen. A portion of the catheter which is projects to the right lateral abdomen and appears to end blindly at the inferior tip of th e liver. A left sided SUPERINTENDENT PIER shunt catheter appears intact. The ventriculostomy portion enters the francisco rium through a left posterior lindsay hole with tip directed medially and ventrally. The catheter elyssa nues along the right medial thorax and into the right medial abdomen and and crosses the midline abo ve the pelvis with the tip lying within the right lateral abdomen. The bowel gas pattern is nonspecific. There is a spina bifida deformity and L3-L5. Surgical karissa are seen in the right upper quadrant of the abdomen. A right subclavian catheter is evident with the tip in the superior vena cava. There is deformity to the right ileum which may be a sequelae of previous infection or trauma. IMPRESSION: 1. The left sided SUPERINTENDENT PIER shunt catheter is intact and crosses the midline to the right within the abdome n with the tip lying in the right lateral abdomen. 2. The right-sided SUPERINTENDENT PIER shunt catheter appears discontinuous at the neck or there is a 9.5 cm gap and within the abdomen were there is a superiorly blind ending catheter within the right lateral abdomen and pelvis. There is a section of catheter coiled at the thoracoabdominal junction with another cat heter projecting to the superior abdomen laterally. 3. A right subclavian central venous catheter is seen in the implants. 4. Previous right upper quadrant abdominal surgery. 5. Spina bifida deformity 6. Deformity to the right ileum which may be a sequelae of previous infection or trauma. Yris Andrade Physician Date Time Electronically viewed and signed by Yris Andrade Physician on 04/19/2016 18:46 RH/
[2016-04-20] VITALS (11 sets, daily range): BP systolic 123–137; BP diastolic 62–78; PULSE 84–103; RESP 18–19
[2016-04-20] MEDS: morphine 4 MG/ML VIAL IV PRN ×6 (01:20→13:20)
[2016-04-20] MEDS ORDERED: ALTEPLASE (CATHFLO) 2 MG INJ CATHETER ONE (06:00)
--- NOTE | 2016-04-20 07:33 | HP ---
Date/Time of Note Date/Time of Note DATE: 04/20/16 TIME: 07:25 Assessment/Plan VTE Prophylaxis VTE Prophylaxis Intervention: SCD's Lines/Catheters IV Catheter Type (from Nrs): PICC Line Central line still needed: Yes Urinary Cath still in place: No Assessment/Plan Assessment/Plan IMPRESSION 1. History of spina bifida with quadriplegia 2. History of hydrocephalus status post V-P shunt with multiple revisions 3. Hx of Recurrent UTI 4. Chronic pain syndrome. 5. Chronic right lower extremity wound. PLAN pt admitted for surgical eval of ventriculo-atrial shunt. will f/u recs Cont pain mgmt will check UA and urine cx to see if recent ESBL UTI has resolved HPI/ROS Admit Date/Time Admit Date/Time Apr 18, 2016 at 18:55 Hx of Present Illness The patient is a 26-year-old male with a history of spina bifida with debility as well as a history of right lower extremity chronic wound, quadriplegia as a result of spina bifida, recurrent UTIs, history of hydrocephalus status post V- P shunt with multiple revisions. Patient was transferred from outside hospital for ventricular-atrial shunt after he was accepted by [facility]. Exam/Review of Systems Vital Signs Vitals Vital Signs Date Time Temp Pulse Resp B/P Pulse Ox O2 Delivery O2 Flow Rate FiO2 04/20/16 04:04 101 04/20/16 03:50 98.3 19 126/78 94 Intake and Output 04/19/16 04/19/16 04/20/16 14:59 22:59 06:59 Intake Total 950 ml 400 ml Balance 950 ml 400 ml Exam Exam GENERAL: Well-developed, obese gentleman, in no acute distress. HEENT: Head is atraumatic, normocephalic. PERRLA. NECK: Supple. No cervical lymphadenopathy, no thyromegaly. CHEST: Lungs clear bilaterally. There are no rhonchi, wheezes or rales noted. CARDIOVASCULAR: Normal S1, S2. No murmurs, gallops, clicks or rubs noted. ABDOMEN: Protuberant, soft, nondistended, nontender. There is no guarding, no rebound tenderness. EXTREMITIES: There is no swelling. There is muscle wasting in the lower extremities. The patient has paraplegia. No edema. The patient has a chronic wound to the right lower extremity medial malleolus site. SKIN: There is no rash or petechiae noted. NEUROLOGICAL: The patient is alert and oriented x4. Cranial nerves are intact. No focal deficits noted. MUSCULOSKELETAL: Motor strength is 5/5 in upper extremities. Labs Result Diagram: 04/19/16 0550 04/19/16 0550 Medications Medications Current Medications Ondansetron HCl (Zofran Inj) 4 mg Q6H PRN IV NAUSEA AND/OR VOMITING; Start at 20:30 Docusate Sodium (Colace) 100 mg Q12H PRN PO CONSTIPATION; Start 04/19/16 at 10: 30 Bisacodyl (Dulcolax) 5 mg DAILY PRN PO CONSTIPATION; Start 04/19/16 at 10:30 Bisacodyl (Dulcolax Supp) 10 mg DAILY PRN [place] CONSTIPATION; Start 04/19/16 at 10 :30 Morphine Sulfate (morphine) 3 mg Q2H PRN IV PAIN Last administered on t 05:42; Admin Dose 3 MG; Start 04/19/16 at 20:30 MAMTA SILVESTRE MD Apr 20, 2016 07:33
[2016-04-20 07:46] LABS: ALBUMIN 3.5 g/dl (3.3-4.9)
[2016-04-20 07:47] LABS: POTASSIUM 4.1 mmol/L (3.5-5.1)
[2016-04-20 07:48] LABS: INR 1.03; PROTIME 13.5 Sec (12.2-14.2); PT RATIO 1.1
[2016-04-20 07:49] LABS: ALBUMIN/GLOBULIN RATIO 0.85; BILIRUBIN,INDIRECT 0.2 mg/dl (0-1.1); BILIRUBIN,TOTAL 0.2 mg/dl (0.2-1.3); CREATININE 0.52 mg/dl (0.61-1.24); TOTAL PROTEIN 7.6 g/dl (6.1-8.1)
[2016-04-20 07:50] LABS: MAGNESIUM 1.4 mg/dl (1.7-2.5); PHOSPHORUS 4.4 mg/dl (2.5-4.9)
[2016-04-20 07:56] LABS: BASOPHILS % 0.4 % (0.0-2.0); EOSINOPHILS # 0.8 10^3/ul (0.0-0.5); EOSINOPHILS % 7.8 % (0.0-7.0); HEMOGLOBIN 10.8 g/dl (14.0-18.0); LYMPHOCYTES # 3.7 10^3/ul (0.8-2.9); LYMPHOCYTES % 36.1 % (15.0-51.0); MEAN CORPUSCULAR HEMOGLOBIN 27.8 pg (29.0-33.0); MEAN CORPUSCULAR HGB CONC 32.8 g/dl (32.0-37.0); MEAN CORPUSCULAR VOLUME 84.7 fl (82.0-101.0); MEAN PLATELET VOLUME 6.9 fl (7.4-10.4); MONOCYTE # 0.7 10^3/ul (0.3-0.9); MONOCYTES % 7.3 % (0.0-11.0); NEUTROPHIL # 4.9 10^3/ul (1.6-7.5); NEUTROPHILS % 48.4 % (39.0-77.0); PLATELET COUNT 468 10^3/UL (140-440); RED CELL DISTRIBUTION WIDTH 16.6 % (11.5-14.5); UNCORRECTED WBC 10.2 10^3/ul (4.8-10.8); WHITE BLOOD COUNT 10.2 10^3/ul (4.8-10.8)
[2016-04-20 07:59] LABS: CONDITION 1; LH ANALYZER COMMENTS 1
[2016-04-20 08:20] LABS: THYROID STIMULATING HORMONE 3.94 MIU/L (0.465-4.680)
--- NOTE | 2016-04-20 09:48 | CONS ---
Date/Time of Note Date/Time of Note DATE: 04/20/16 TIME: 09:37 Assessment/Plan Assessment/Plan Chief Complaint/Hosp Course Very pleasant 26 y/o male with pmh: Spina Bifida, depression, chronic headaches with hydrocephalus. Pt had VPS placement as a child but most recently underwent multiple bilateral FLAT KNITTER (Abd/Pleural) shunt placements with Dr. Triplett starting 2008 and most recent left vps revision was performed at [facility] by Dr. Triplett as well. Pt presents with bifrontal HAs. Per Dr. Triplett's notes states possible non functioning left vps due to "scarring in the peritoneal cavity not allowing enough surface for CSF absorption area." Dr. Triplett / Dr. Castelan (partner) did not feel comfortable performing ventricular atrial shunt and transfer was then requested. pmh/psx: per hpi/chart meds: see med recon ros: per hpi/chart Problems: Consultation Date/Type/Reason Admit Date/Time Apr 18, 2016 at 18:55 Initial Consult Date 04/19/16 Type of Consultation: Neurosurgery 24 HR Interval Summary Free Text/Dictation Neurosurgery follow up S: NAD Imaging completed VSS AAOX4 PERRL FC bilat UE, 0/[address] brain and shunt series reviewed Impression bilat vps placement initially placed 2008 and most recent revision per [place] [address] Triplett CTB and shunt series reviewed Right VPS cath clamped at neck and left VPS cath crosses midline to right side abd. slight tenderness on palpation and with persistent METZGER Plan Left VPS shunt Send csf for gram stain, cs, protein, glucose, cell count may need revision if VPS tap proves to have infection or malfunction Exam/Review of Systems Vital Signs Vitals Vital Signs Date Time Temp Pulse Resp B/P Pulse Ox O2 Delivery O2 Flow Rate FiO2 04/20/16 08:06 98.5 90 18 123/70 96 Intake and Output 04/19/16 04/19/16 04/20/16 15:00 23:00 07:00 Intake Total 950 ml 400 ml Balance 950 ml 400 ml Results Result Diagram: 04/20/16 0725 04/20/16 0725 Results 24 hrs Laboratory Tests Test 04/20/16 07:25 Alanine Aminotransferase (ALT/SGPT) 72 H Albumin 3.5 Albumin/Globulin Ratio 0.85 Alkaline Phosphatase 151 H Anion Gap 16 Aspartate Amino Transf (AST/SGOT) 49 H Basophils # 0.0 Basophils % 0.4 Blood Morphology Comment Blood Urea Nitrogen 14 Calcium Level 9.0 Carbon Dioxide Level 30 Chloride Level 99 Creatinine 0.52 L Direct Bilirubin 0.00 Eosinophils # 0.8 H Eosinophils % 7.8 H Globulin 4.10 H Glucose Level 92 Hematocrit 33.0 L Hemoglobin 10.8 L Hemoglobin A1c 4.9 INR International Normalized Ratio 1.03 Indirect Bilirubin 0.2 Lymphocytes # 3.7 H Lymphocytes % 36.1 Magnesium Level 1.4 L Mean Corpuscular Hemoglobin 27.8 L Mean Corpuscular Hemoglobin Concent 32.8 Mean Corpuscular Volume 84.7 Mean Platelet Volume 6.9 L Monocytes # 0.7 Monocytes % 7.3 Neutrophils # 4.9 Neutrophils % 48.4 Nucleated Red Blood Cells # 0.0 Nucleated Red Blood Cells % 0.0 Phosphorus Level 4.4 Platelet Count 468 H Potassium Level 4.1 Prothrombin Time 13.5 Prothrombin Time Ratio 1.1 Red Blood Count 3.90 L Red Cell Distribution Width 16.6 H Sodium Level 141 Thyroid Stimulating Hormone (TSH) 3.940 Total Bilirubin 0.2 Total Protein 7.6 White Blood Count 10.2 Medications Medications Current Medications Ondansetron HCl (Zofran Inj) 4 mg Q6H PRN IV NAUSEA AND/OR VOMITING; Start at 20:30 Docusate Sodium (Colace) 100 mg Q12H PRN PO CONSTIPATION; Start 04/19/16 at 10: 30 Bisacodyl (Dulcolax) 5 mg DAILY PRN PO CONSTIPATION; Start 04/19/16 at 10:30 Bisacodyl (Dulcolax Supp) 10 mg DAILY PRN [place] CONSTIPATION; Start 04/19/16 at 10 :30 Morphine Sulfate (morphine) 3 mg Q2H PRN IV PAIN Last administered on t 07:48; Admin Dose 3 MG; Start 04/19/16 at 20:30 ALEX MOTA NP Apr 20, 2016 09:48
--- NOTE | 2016-04-20 14:16 | PN ---
Date/Time of Note Date/Time of Note DATE: 04/20/16 TIME: 13:59 Assessment/Plan VTE Prophylaxis VTE Prophylaxis Intervention: contraindicated (for surgery) Lines/Catheters IV Catheter Type (from Nrsg): PICC Line Central line still needed: Yes (iv access) Urinary Cath still in place: No Assessment/Plan Chief Complaint/Hosp Course Hospitalist coverage- S: 04/19 Pressure-like headache in the frontal region. No photophobia. No loss of speech vision or focal deficits. No weakness fever nausea vomiting. 04/20 Pain cont; no n/v/f or loss of speech O: vss PE: No pallor, droop. Anisocoria. S1S2, no m/r/g CTAB Bs +, nt, nd, no R/R/G. Obese. Scars c/d/i Hypotonia, rt medial malleolus area w erythema and slight warmth. A/P 1. Headache. Stable, ro shunt malfunction. for VPS 2. Chr hydrocephalus, 3. Chr pain disorder 4. Ftt; start Lovenox if no planned surgery or GOLF RANGE ATTENDANT revision 5. Possible nonadherence 6. Probable neurogenic bladder 7. Recent mdr UTI Problems: Exam/Review of Systems Vital Signs Vitals Vital Signs Date Time Temp Pulse Resp B/P Pulse Ox O2 Delivery O2 Flow Rate FiO2 04/20/16 12:01 84 04/20/16 11:55 97.9 18 137/72 95 Intake and Output 04/19/16 04/19/16 04/20/16 15:00 23:00 07:00 Intake Total 950 ml 400 ml Balance 950 ml 400 ml Results Result Diagram: 04/20/16 0725 04/20/16 0725 Results 24 hrs Laboratory Tests Test 04/20/16 07:25 Alanine Aminotransferase (ALT/SGPT) 72 H Albumin 3.5 Albumin/Globulin Ratio 0.85 Alkaline Phosphatase 151 H Anion Gap 16 Aspartate Amino Transf (AST/SGOT) 49 H Basophils # 0.0 Basophils % 0.4 Blood Morphology Comment Blood Urea Nitrogen 14 Calcium Level 9.0 Carbon Dioxide Level 30 Chloride Level 99 Creatinine 0.52 L Direct Bilirubin 0.00 Eosinophils # 0.8 H Eosinophils % 7.8 H Globulin 4.10 H Glucose Level 92 Hematocrit 33.0 L Hemoglobin 10.8 L Hemoglobin A1c 4.9 INR International Normalized Ratio 1.03 Indirect Bilirubin 0.2 Lymphocytes # 3.7 H Lymphocytes % 36.1 Magnesium Level 1.4 L Mean Corpuscular Hemoglobin 27.8 L Mean Corpuscular Hemoglobin Concent 32.8 Mean Corpuscular Volume 84.7 Mean Platelet Volume 6.9 L Monocytes # 0.7 Monocytes % 7.3 Neutrophils # 4.9 Neutrophils % 48.4 Nucleated Red Blood Cells # 0.0 Nucleated Red Blood Cells % 0.0 Phosphorus Level 4.4 Platelet Count 468 H Potassium Level 4.1 Prothrombin Time 13.5 Prothrombin Time Ratio 1.1 Red Blood Count 3.90 L Red Cell Distribution Width 16.6 H Sodium Level 141 Thyroid Stimulating Hormone (TSH) 3.940 Total Bilirubin 0.2 Total Protein 7.6 White Blood Count 10.2 Medications Medications Current Medications Ondansetron HCl (Zofran Inj) 4 mg Q6H PRN IV NAUSEA AND/OR VOMITING; Start at 20:30 Docusate Sodium (Colace) 100 mg Q12H PRN PO CONSTIPATION; Start 04/19/16 at 10: 30 Bisacodyl (Dulcolax) 5 mg DAILY PRN PO CONSTIPATION; Start 04/19/16 at 10:30 Bisacodyl (Dulcolax Supp) 10 mg DAILY PRN [place] CONSTIPATION; Start 04/19/16 at 10 :30 Morphine Sulfate (morphine) 3 mg Q2H PRN IV PAIN Last administered on t 13:20; Admin Dose 3 MG; Start 04/19/16 at 20:30 CHRIS TOPETE MD Apr 20, 2016 14:16
[2016-04-20] MEDS: HYDROmorphONE 1 MG/ML SYG IV PRN ×3 (14:47→22:28)
[2016-04-20] MEDS ORDERED: MAGNESIUM SULFATE 3 GM in SOD CHLORIDE 0.9% 100 ML IVPB ONE (15:00)
[2016-04-20] MEDS: ONDANSETRON 4 MG INJ IV PRN ×2 (18:46→22:28)
[2016-04-20] MEDS: SENNA/DOCUSATE NA (8.6MG/50MG) TAB PO SCH (20:22)
[2016-04-20] MEDS ORDERED: traMADol 50 MG TAB PO PRN ×2 (21:42→22:30)
[2016-04-20] MEDS ORDERED: HYDROmorphONE 1 MG/ML SYG IV STA ×2 (23:00→23:04)
[2016-04-21] VITALS (12 sets, daily range): BP systolic 111–136; BP diastolic 58–77; PULSE 90–103; RESP 18–20
[2016-04-21 00:08] LABS: # OF CELLS COUNTED 100
[2016-04-21 00:25] LABS: CSF COLOR COLORLESS
[2016-04-21 00:26] LABS: CSF VOLUME 4.3 ml; CSF#TUBES REC'D 4
[2016-04-21 00:31] LABS: GLUCOSE,CSF 63 mg/dl (50-80)
[2016-04-21 00:34] LABS: %CREANATED RBC CSF 2 %
[2016-04-21 00:35] LABS: CSF#TUBE COUNT TUBE#4
[2016-04-21] MEDS ORDERED: HYDROmorphONE 1 MG/ML SYG IV PRN (01:00)
[2016-04-21] MEDS: HYDROmorphONE 1 MG/ML SYG IV PRN ×7 (01:04→22:16)
[2016-04-21 01:06] LABS: CSF EOSINOPHIL 2 %
[2016-04-21 01:07] LABS: CSF BASOPHIL 0 %
[2016-04-21 05:18] LABS: ADD UMIC YES; URINE BILIRUBIN (Dip) NEGATIVE (NEGATIVE); URINE BLOOD (Dip) 2+ (NEGATIVE); URINE COLOR LT. YELLOW (YELLOW); URINE GLUCOSE (Dip) NEGATIVE (NEGATIVE); URINE KETONES (Dip) NEGATIVE (NEGATIVE); URINE LEUKOCYTE ESTERASE (Dip) 1+ (NEGATIVE); URINE NITRITE (Dip) NEGATIVE (NEGATIVE); URINE TOTAL PROTEIN (Dip) TRACE (NEGATIVE); URINE UROBILINOGEN (Dip) 0.2 E.U./dL (0.1-1.0)
[2016-04-21 06:21] LABS: SQUAMOUS EPITHELIAL CELL,UR FEW; URINE RBCS 0-2 /HPF (0)
[2016-04-21 06:22] LABS: BACTERIA,URINE MANY
--- NOTE | 2016-04-21 14:31 | PN ---
Date/Time of Note Date/Time of Note DATE: 04/21/16 TIME: 14:29 Assessment/Plan VTE Prophylaxis VTE Prophylaxis Intervention: SCD's Lines/Catheters IV Catheter Type (from Nrsg): PICC Line Central line still needed: Yes (IV access) Urinary Cath still in place: No Assessment/Plan Chief Complaint/Hosp Course Hospitalist coverage- S: 04/19 Pressure-like headache in the frontal region. No photophobia. No loss of speech vision or focal deficits. No weakness fever nausea vomiting. 04/20 Pain cont; no n/v/f or loss of speech 04/21 headache continues. No change in speech vision or fever. O: vss PE: No pallor, droop. Anisocoria. S1S2, no m/r/g CTAB Bs + nt, nd, no R/R/G. Obese. Scars c/d/i Hypotonia, rt medial malleolus area w erythema and slight warmth. A/P 1. Headache. Stable, ro shunt malfunction. for VPS 2. Chr hydrocephalus, 3. Chr pain disorder 4. Ftt; start Lovenox if no planned surgery or PROFESSOR OF ARCHITECTURE revision 5. Possible nonadherence 6. Probable neurogenic bladder 7. Recent mdr UTI Problems: Exam/Review of Systems Vital Signs Vitals Vital Signs Date Time Temp Pulse Resp B/P Pulse Ox O2 Delivery O2 Flow Rate FiO2 04/21/16 12:03 94 04/21/16 11:43 98.3 18 111/70 94 Intake and Output 04/20/16 04/20/16 04/21/16 15:00 23:00 07:00 Intake Total 950 ml 750 ml Output Total 200 ml Balance 950 ml 550 ml Results Result Diagram: 04/20/16 0725 04/20/16 0725 Results 24 hrs Laboratory Tests Test 04/20/16 23:00 04/21/16 03:00 CSF Appearance CLEAR CSF Basophils % 0 CSF Cell Count Tube # TUBE#4 CSF Color COLORLESS CSF Crenated Cells 2 CSF Eosinophils % 2 CSF Glucose 63 CSF Lymphocytes % 95 CSF Monocytes % 3 CSF Neutrophils % 0 CSF Other Cells % 0 CSF RBC 80 H CSF Total Cells Counted 100 CSF Total Protein 22 CSF Tubes Submitted 4 CSF Volume 4.3 CSF WBC 3 Urine Amorphous Urates MODERATE Urine Bacteria MANY Urine Bilirubin NEGATIVE Urine Clarity CLEAR Urine Color LT. YELLOW Urine Glucose NEGATIVE Urine Hemoglobin 2+ H Urine Ketones NEGATIVE Urine Leukocyte Esterase 1+ H Urine Microscopic RBC 0-2 Urine Microscopic WBC 5-10 Urine Nitrite NEGATIVE Urine Specific [place] 1.015 Urine Squamous Epithelial Cells FEW Urine Total Protein TRACE Urine Urobilinogen 0.2 E.U./dL Urine pH 7.0 Medications Medications Current Medications Ondansetron HCl (Zofran Inj) 4 mg Q6H PRN IV NAUSEA AND/OR VOMITING Last administered on 04/20/16 22:28; Admin Dose 4 MG; Start 04/18/16 at 20:30 Docusate Sodium (Colace) 100 mg Q12H PRN PO CONSTIPATION; Start 04/19/16 at 10: 30 Bisacodyl (Dulcolax) 5 mg DAILY PRN PO CONSTIPATION; Start 04/19/16 at 10:30 Bisacodyl (Dulcolax Supp) 10 mg DAILY PRN [place] CONSTIPATION; Start 04/19/16 at 10 :30 Senna/Docusate Sodium (Senokot-S) 2 tab HS PO ; Start 04/20/16 at 21:00 Tramadol HCl (Ultram) 50 mg Q6H PRN PO pain; Start 04/20/16 at 22:30 Hydromorphone HCl (Dilaudid) 1 mg Q2H PRN IV PAIN Last administered on 13:55; Admin Dose 1 MG; Start 04/20/16 at 23:30 CHRIS TOPETE MD Apr 21, 2016 14:30
[2016-04-21] MEDS: SENNA/DOCUSATE NA (8.6MG/50MG) TAB PO SCH (20:13)
[2016-04-22] VITALS (13 sets, daily range): BP systolic 113–136; BP diastolic 57–81; PULSE 86–108; RESP 15–20
[2016-04-22] MEDS: HYDROmorphONE 1 MG/ML SYG IV PRN ×12 (00:16→23:58)
[2016-04-22 07:58] LABS: CREATININE 0.57 mg/dl (0.61-1.24)
[2016-04-22 07:59] LABS: CALCIUM 9.1 mg/dl (8.4-10.2)
[2016-04-22 08:01] LABS: INR 1.05; PROTIME 13.7 Sec (12.2-14.2); PT RATIO 1.1
[2016-04-22 08:10] LABS: BASOPHILS % 0.2 % (0.0-2.0); EOSINOPHILS # 0.7 10^3/ul (0.0-0.5); EOSINOPHILS % 6.5 % (0.0-7.0); HEMATOCRIT 32.8 % (42.0-52.0); HEMOGLOBIN 10.8 g/dl (14.0-18.0); LYMPHOCYTES # 4.7 10^3/ul (0.8-2.9); LYMPHOCYTES % 41.6 % (15.0-51.0); MEAN CORPUSCULAR HEMOGLOBIN 27.9 pg (29.0-33.0); MEAN CORPUSCULAR HGB CONC 32.8 g/dl (32.0-37.0); MEAN CORPUSCULAR VOLUME 85.1 fl (82.0-101.0); MEAN PLATELET VOLUME 7.2 fl (7.4-10.4); MONOCYTE # 0.8 10^3/ul (0.3-0.9); MONOCYTES % 7.3 % (0.0-11.0); NEUTROPHILS % 44.4 % (39.0-77.0); PLATELET COUNT 435 10^3/UL (140-440); RED BLOOD COUNT 3.86 10^6/ul (4.70-6.10); RED CELL DISTRIBUTION WIDTH 17.4 % (11.5-14.5); UNCORRECTED WBC 11.3 10^3/ul (4.8-10.8); WHITE BLOOD COUNT 11.3 10^3/ul (4.8-10.8)
[2016-04-22 08:17] LABS: CONDITION 1; LH ANALYZER COMMENTS 1
--- NOTE | 2016-04-22 13:47 | PN ---
Date/Time of Note Date/Time of Note DATE: 04/22/16 TIME: 13:42 Assessment/Plan VTE Prophylaxis VTE Prophylaxis Intervention: SCD's Lines/Catheters IV Catheter Type (from Nrsg): PICC Line Central line still needed: Yes Urinary Cath still in place: No Assessment/Plan Assessment/Plan 1. Diffuse headache, r/o AGENCY DEVELOPMENT MANAGER shunt dysfunction, follow up with Neurosurgery 2. History of spina bifida with quadriplegia 3. History of hydrocephalus status post V-P shunt with multiple revisions 4. Chronic pain syndrome. 5. Chronic right lower extremity wound. Subjective 24 Hr Interval Summary Free Text/Dictation still with diffuse headache, no blurring vision Exam/Review of Systems Vital Signs Vitals Vital Signs Date Time Temp Pulse Resp B/P Pulse Ox O2 Delivery O2 Flow Rate FiO2 04/22/16 12:12 93 04/22/16 11:34 98.1 20 127/58 98 04/22/16 04:00 Room Air Intake and Output 04/21/16 04/21/16 04/22/16 15:00 23:00 07:00 Intake Total 850 ml 860 ml Balance 850 ml 860 ml Exam Constitutional: alert, oriented Psych: nl mood/affect, no complaints Head: atraumatic, normocephalic Eyes: EOMI, PERRL, nl conjunctiva, nl lids, nl sclera ENMT: nl external ears & nose, nl lips & teeth, nl nasal mucosa & septum Neck: non-tender, supple Respiratory: clear to auscultation, normal air movement, No congested cough, No crackles/rales, No diminished breath sounds, No intercostal retraction, No labored breathing, No respirations, No tactile fremitus, No wheezing Cardiovascular: nl pulses, regular rate and rhythm, No S3, No S4, No bruits, No diastolic murmur, No edema, No gallop, No irregular rhythm, No jugular venous distention (JVD), No murmurs/extra sounds, No rub, No systolic murmur Gastrointestinal: nl liver, spleen, non-tender, soft, No ascites, No bowel sounds, No distended, No firm, No hepatomegaly, No mass , No rebound or guarding, No splenomegaly, No surgical scars, No tender Musculoskeletal: nl extremities to inspection Extremities: normal pulses, No calf tenderness, No clubbing, No cyanosis, No edema, No palpable cord, No pitting pedal edema, No tenderness Neurological: GREASE MACHINE WORKER II-XII intact, nl mental status, nl speech, nl strength Lymph: nl lymph nodes Results Result Diagram: 04/22/1615 04/22/1615 Results 24 hrs Laboratory Tests Test 04/22/16 06:15 Anion Gap 17 H Basophils # 0.0 Basophils % 0.2 Blood Morphology Comment Blood Urea Nitrogen 17 Calcium Level 9.1 Carbon Dioxide Level 29 Chloride Level 99 Creatinine 0.57 L Eosinophils # 0.7 H Eosinophils % 6.5 Glucose Level 80 Hematocrit 32.8 L Hemoglobin 10.8 L INR International Normalized Ratio 1.05 Lymphocytes # 4.7 H Lymphocytes % 41.6 Mean Corpuscular Hemoglobin 27.9 L Mean Corpuscular Hemoglobin Concent 32.8 Mean Corpuscular Volume 85.1 Mean Platelet Volume 7.2 L Monocytes # 0.8 Monocytes % 7.3 Neutrophils # 5.0 Neutrophils % 44.4 Nucleated Red Blood Cells # 0.0 Nucleated Red Blood Cells % 0.0 Platelet Count 435 Potassium Level 4.0 Prothrombin Time 13.7 Prothrombin Time Ratio 1.1 Red Blood Count 3.86 L Red Cell Distribution Width 17.4 H Sodium Level 141 White Blood Count 11.3 H Medications Medications Current Medications Ondansetron HCl (Zofran Inj) 4 mg Q6H PRN IV NAUSEA AND/OR VOMITING Last administered on 04/20/16 22:28; Admin Dose 4 MG; Start 04/18/16 at 20:30 Docusate Sodium (Colace) 100 mg Q12H PRN PO CONSTIPATION; Start 04/19/16 at 10: 30 Bisacodyl (Dulcolax) 5 mg DAILY PRN PO CONSTIPATION; Start 04/19/16 at 10:30 Bisacodyl (Dulcolax Supp) 10 mg DAILY PRN [place] CONSTIPATION; Start 04/19/16 at 10 :30 Senna/Docusate Sodium (Senokot-S) 2 tab HS PO ; Start 04/20/16 at 21:00 Tramadol HCl (Ultram) 50 mg Q6H PRN PO pain; Start 04/20/16 at 22:30 Hydromorphone HCl (Dilaudid) 1 mg Q2H PRN IV PAIN Last administered on 13:28; Admin Dose 1 MG; Start 04/20/16 at 23:30 ZI ROTHMAN MD Apr 22, 2016 13:47
--- NOTE | 2016-04-22 20:32 | PN ---
DATE: 04/22/2016 SUBJECTIVE: No acute changes overnight. The patient is alert, complaining of headache. He is in n o distress. He is afebrile since admission. WBC today 11.3 with platelets 435, no shift, no bands. BUN 17, creatinine 0.57. MICROBIOLOGY: CSF culture preliminary negative. CSF cytology revealed WBC of 3, glucose 63, protei n 22. DIAGNOSTICS: Chest x-ray on admission revealed no acute intracranial abnormalities. PHYSICAL EXAMINATION: GENERAL: This is a morbidly obese, chronically ill-appearing middle-aged man who is in no distress. HEENT: Head atraumatic, normocephalic. Sclerae anicteric. Buccal mucosa pink. NECK: Obese. CHEST: Rise symmetrical. Breath sounds diminished to bases. HEART: S1, S2. ABDOMEN: Soft. Bowel tones present. EXTREMITIES: Without cyanosis. Bilateral trace edema. ASSESSMENT: 1. Ongoing headaches, no evidence for meningitis. 2. Leukocytosis, likely reactive. 3. History of spina bifida, schizophrenia and depression. 4. History of ventriculoperitoneal shunt. PLAN: The patient remains stable off antibiotics. Continue present care and follow neurosurgical r ecommendations. Dictated By: PAT RODRIGUEZ STOCK PULLER for DIAN AVILA/NTS Conf#: [id number] DID#: [id number]
[2016-04-22] MEDS: SENNA/DOCUSATE NA (8.6MG/50MG) TAB PO SCH (21:00)
[2016-04-23] VITALS (11 sets, daily range): BP systolic 128–164; BP diastolic 62–78; PULSE 85–107; RESP 20
[2016-04-23] MEDS: HYDROmorphONE 1 MG/ML SYG IV PRN ×10 (01:57→23:56)
--- NOTE | 2016-04-23 14:28 | PN ---
Date/Time of Note Date/Time of Note DATE: 04/23/16 TIME: 14:25 Assessment/Plan VTE Prophylaxis VTE Prophylaxis Intervention: SCD's Lines/Catheters IV Catheter Type (from Nrsg): PICC Line Central line still needed: Yes Urinary Cath still in place: No Assessment/Plan Assessment/Plan 1. Diffuse headache, r/o MID LEVEL BUSINESS ANALYST shunt dysfunction, follow up with Neurosurgery 2. History of spina bifida with quadriplegia 3. History of hydrocephalus status post V-P shunt with multiple revisions 4. Chronic pain syndrome. 5. Chronic right lower extremity wound. Subjective 24 Hr Interval Summary Free Text/Dictation still with headache Exam/Review of Systems Vital Signs Vitals Vital Signs Date Time Temp Pulse Resp B/P Pulse Ox O2 Delivery O2 Flow Rate FiO2 04/23/16 12:33 88 04/23/16 11:53 98.6 20 128/63 96 04/22/16 04:00 Room Air Intake and Output 04/22/16 04/22/16 04/23/16 15:00 23:00 07:00 Intake Total 1000 ml 900 ml Balance 1000 ml 900 ml Exam Constitutional: alert, oriented, well developed Psych: nl mood/affect, no complaints Head: normocephalic Eyes: EOMI, PERRL, nl conjunctiva, nl lids, nl sclera ENMT: mucosa pink and moist, nl external ears & nose, nl lips & teeth, nl nasal mucosa & septum Neck: non-tender, supple Respiratory: clear to auscultation, normal air movement, No congested cough, No crackles/rales, No diminished breath sounds, No intercostal retraction, No labored breathing, No respirations, No tactile fremitus, No wheezing Cardiovascular: nl pulses, regular rate and rhythm, No S3, No S4, No bruits, No diastolic murmur, No edema, No gallop, No irregular rhythm, No jugular venous distention (JVD), No murmurs/extra sounds, No rub, No systolic murmur Gastrointestinal: nl liver, spleen, non-tender, soft, No ascites, No bowel sounds, No distended, No firm, No hepatomegaly, No mass , No rebound or guarding, No splenomegaly, No surgical scars, No tender Musculoskeletal: nl extremities to inspection Extremities: normal pulses, No calf tenderness, No clubbing, No cyanosis, No edema, No palpable cord, No pitting pedal edema, No tenderness Neurological: FORMULATION SCIENTIST II-XII intact, nl mental status, nl speech, nl strength Skin: nl turgor, rash or lesions Lymph: nl lymph nodes Results Result Diagram: 04/22/1661404/22/16614 Medications Medications Current Medications Ondansetron HCl (Zofran Inj) 4 mg Q6H PRN IV NAUSEA AND/OR VOMITING Last administered on 04/20/16 22:28; Admin Dose 4 MG; Start 04/18/16 at 20:30 Docusate Sodium (Colace) 100 mg Q12H PRN PO CONSTIPATION; Start 04/19/16 at 10: 30 Bisacodyl (Dulcolax) 5 mg DAILY PRN PO CONSTIPATION; Start 04/19/16 at 10:30 Bisacodyl (Dulcolax Supp) 10 mg DAILY PRN [place] CONSTIPATION; Start 04/19/16 at 10 :30 Senna/Docusate Sodium (Senokot-S) 2 tab HS PO ; Start 04/20/16 at 21:00 Tramadol HCl (Ultram) 50 mg Q6H PRN PO pain; Start 04/20/16 at 22:30 Hydromorphone HCl (Dilaudid) 1 mg Q2H PRN IV PAIN Last administered on 12:53; Admin Dose 1 MG; Start 04/20/16 at 23:30 ZI ROTHMAN MD Apr 23, 2016 14:28
[2016-04-23] MEDS: ONDANSETRON 4 MG INJ IV PRN (16:54)
[2016-04-23] MEDS: SENNA/DOCUSATE NA (8.6MG/50MG) TAB PO SCH (21:00)
[2016-04-24] VITALS (24 sets, daily range): BP systolic 117–157; BP diastolic 59–83; PULSE 50–101; RESP 16–20
[2016-04-24] MEDS: ONDANSETRON 4 MG INJ IV PRN (00:10)
[2016-04-24] MEDS: HYDROmorphONE 1 MG/ML SYG IV PRN ×5 (02:49→18:49)
[2016-04-24 07:05] LABS: BASOPHIL # 0.1 10^3/ul (0.0-0.1); BASOPHILS % 0.4 % (0.0-2.0); HEMATOCRIT 35.5 % (42.0-52.0); HEMOGLOBIN 11.9 g/dl (14.0-18.0); LYMPHOCYTES % 14.9 % (15.0-51.0); MEAN CORPUSCULAR HEMOGLOBIN 28.3 pg (29.0-33.0); MEAN CORPUSCULAR HGB CONC 33.5 g/dl (32.0-37.0); MEAN CORPUSCULAR VOLUME 84.5 fl (82.0-101.0); MEAN PLATELET VOLUME 7.3 fl (7.4-10.4); MONOCYTE # 0.8 10^3/ul (0.3-0.9); MONOCYTES % 6.1 % (0.0-11.0); NEUTROPHIL # 10.6 10^3/ul (1.6-7.5); NEUTROPHILS % 78.6 % (39.0-77.0); PLATELET COUNT 465 10^3/UL (140-440); RED BLOOD COUNT 4.21 10^6/ul (4.70-6.10); UNCORRECTED WBC 13.5 10^3/ul (4.8-10.8); WHITE BLOOD COUNT 13.5 10^3/ul (4.8-10.8)
[2016-04-24 07:11] LABS: CONDITION 1; LH ANALYZER COMMENTS 1; POTASSIUM 3.9 mmol/L (3.5-5.1)
[2016-04-24 07:13] LABS: INR 1.04; PROTIME 13.6 Sec (12.2-14.2); PT RATIO 1.1
[2016-04-24 07:14] LABS: CREATININE 0.5 mg/dl (0.61-1.24); PARTIAL THROMBOPLASTIN TIME 34.3 Sec (25.0-35.0)
[2016-04-24 07:15] LABS: CALCIUM 9.7 mg/dl (8.4-10.2)
[2016-04-24] MEDS ORDERED: SUCCINYLCHOLINE CHLORIDE 100 MG/5 ML SYG IV ONE (14:23)
[2016-04-24] MEDS ORDERED: PROPOFOL 20 ML ONE (14:23)
[2016-04-24] MEDS ORDERED: LIDOCAINE 2% (SDV) 5 ML INJ ONE (14:23)
[2016-04-24] MEDS ORDERED: FENTAnyl 50 MCG/ML VIAL ONE ×2 (14:25→16:29)
[2016-04-24] MEDS ORDERED: METOCLOPRAMIDE 10 MG INJ IV PRN (15:00)
[2016-04-24] MEDS ORDERED: hydrALAzine 20 MG INJ IV PRN (15:00)
[2016-04-24] MEDS ORDERED: HYDROmorphONE (0.2 MG/ML) 10ML SYG IV PRN ×3 (15:00)
[2016-04-24] MEDS ORDERED: DIPHENHYDRAMINE 50 MG INJ IV PRN (15:00)
[2016-04-24] MEDS ORDERED: ONDANSETRON 4 MG INJ IV PRN (15:00)
[2016-04-24] MEDS ORDERED: FENTAnyl 50 MCG/ML VIAL IV PRN ×3 (15:00)
[2016-04-24] MEDS ORDERED: MEPERIDINE 25 MG INJ IV PRN (15:00)
[2016-04-24] MEDS ORDERED: LABETALOL HCL 20MG INJ IV PRN (15:00)
--- NOTE | 2016-04-24 15:18 | PN ---
Date/Time of Note Date/Time of Note DATE: 04/24/16 TIME: 15:16 Assessment/Plan VTE Prophylaxis VTE Prophylaxis Intervention: SCD's Lines/Catheters IV Catheter Type (from Nrsg): Peripheral IV Urinary Cath still in place: No Assessment/Plan Assessment/Plan 1. Diffuse headache, SHALE PLANER OPERATOR shunt dysfunction, Dr. Bernal for surgery today 2. History of spina bifida with quadriplegia 3. History of hydrocephalus status post V-P shunt with multiple revisions 4. Chronic pain syndrome. 5. Chronic right lower extremity wound. Subjective 24 Hr Interval Summary Free Text/Dictation still with headache Exam/Review of Systems Vital Signs Vitals Vital Signs Date Time Temp Pulse Resp B/P Pulse Ox O2 Delivery O2 Flow Rate FiO2 04/24/16 12:42 89 04/24/16 11:59 98.7 20 118/64 96 04/22/16 04:00 Room Air Intake and Output 04/23/16 04/23/16 04/24/16 14:59 22:59 06:59 Intake Total 900 ml 100 ml Balance 900 ml 100 ml Exam Constitutional: alert, oriented, well developed Psych: nl mood/affect, no complaints Head: atraumatic, normocephalic Eyes: EOMI, PERRL, nl conjunctiva, nl lids, nl sclera ENMT: mucosa pink and moist, nl external ears & nose, nl lips & teeth, nl nasal mucosa & septum Neck: non-tender, supple Respiratory: clear to auscultation, normal air movement, No congested cough, No crackles/rales, No diminished breath sounds, No intercostal retraction, No labored breathing, No respirations, No tactile fremitus, No wheezing Cardiovascular: nl pulses, regular rate and rhythm, No S3, No S4, No bruits, No diastolic murmur, No edema, No gallop, No irregular rhythm, No jugular venous distention (JVD), No murmurs/extra sounds, No rub, No systolic murmur Gastrointestinal: nl liver, spleen, non-tender, soft, No ascites, No bowel sounds, No distended, No firm, No hepatomegaly, No mass , No rebound or guarding, No splenomegaly, No surgical scars, No tender Musculoskeletal: nl extremities to inspection Neurological: SINGLE NEEDLE TUFTING 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 II-XII intact, nl mental status, nl speech, nl strength Skin: nl turgor, rash or lesions Lymph: nl lymph nodes Results Result Diagram: 04/24/16 0600 04/24/16 0600 Results 24 hrs Laboratory Tests Test 04/24/16 06:00 Activated Partial Thromboplast Time 34.3 Anion Gap 19 H Basophils # 0.1 Basophils % 0.4 Blood Morphology Comment Blood Urea Nitrogen 16 Calcium Level 9.7 Carbon Dioxide Level 32 H Chloride Level 95 L Creatinine 0.50 L Eosinophils # 0.0 Eosinophils % 0.0 Glucose Level 127 # Hematocrit 35.5 L Hemoglobin 11.9 L INR International Normalized Ratio 1.04 Lymphocytes # 2.0 Lymphocytes % 14.9 L Mean Corpuscular Hemoglobin 28.3 L Mean Corpuscular Hemoglobin Concent 33.5 Mean Corpuscular Volume 84.5 Mean Platelet Volume 7.3 L Monocytes # 0.8 Monocytes % 6.1 Neutrophils # 10.6 H Neutrophils % 78.6 H Nucleated Red Blood Cells # 0.0 Nucleated Red Blood Cells % 0.0 Platelet Count 465 H Potassium Level 3.9 Prothrombin Time 13.6 Prothrombin Time Ratio 1.1 Red Blood Count 4.21 L Red Cell Distribution Width 17.0 H Sodium Level 142 White Blood Count 13.5 H Medications Medications Current Medications Ondansetron HCl (Zofran Inj) 4 mg Q6H PRN IV NAUSEA AND/OR VOMITING Last administered on 04/24/16 00:10; Admin Dose 4 MG; Start 04/18/16 at 20:30 Docusate Sodium (Colace) 100 mg Q12H PRN PO CONSTIPATION; Start 04/19/16 at 10: 30 Bisacodyl (Dulcolax) 5 mg DAILY PRN PO CONSTIPATION; Start 04/19/16 at 10:30 Bisacodyl (Dulcolax Supp) 10 mg DAILY PRN [place] CONSTIPATION; Start 04/19/16 at 10 :30 Senna/Docusate Sodium (Senokot-S) 2 tab HS PO ; Start 04/20/16 at 21:00 Tramadol HCl (Ultram) 50 mg Q6H PRN PO pain; Start 04/20/16 at 22:30 Hydromorphone HCl (Dilaudid) 1 mg Q2H PRN IV PAIN Last administered on 13:08; Admin Dose 1 MG; Start 04/20/16 at 23:30 ZI ROTHMAN MD Apr 24, 2016 15:18
--- NOTE | 2016-04-24 16:08 | HPN ---
Date/Time of Note Date/Time of Note DATE: 04/24/16 TIME: 15:59 Interval H&P Admission Note Pt. seen H&P reviewed: No system changes ALEXANDER MOTA MD Apr 24, 2016 16:07
[2016-04-24] MEDS: SENNA/DOCUSATE NA (8.6MG/50MG) TAB PO SCH (21:00)
[2016-04-25] VITALS (12 sets, daily range): BP systolic 120–143; BP diastolic 61–81; PULSE 63–90; RESP 16–20
[2016-04-25] MEDS: HYDROmorphONE 1 MG/ML SYG IV PRN ×11 (01:40→22:28)
--- NOTE | 2016-04-25 12:56 | CONS ---
Date/Time of Note Date/Time of Note DATE: 04/25/16 TIME: 12:54 Assessment/Plan Assessment/Plan Chief Complaint/Hosp Course Very pleasant 26 y/o male with pmh: Spina Bifida, depression, chronic headaches with hydrocephalus. Pt had VPS placement as a child but most recently underwent multiple bilateral NURSING AIDE (Abd/Pleural) shunt placements with Dr. Triplett starting 2008 and most recent left vps revision was performed at [facility] by Dr. Triplett as well. Pt presents with bifrontal HAs. Per Dr. Triplett's notes states possible non functioning left vps due to "scarring in the peritoneal cavity not allowing enough surface for CSF absorption area." Dr. Triplett / Dr. Castelan (partner) did not feel comfortable performing ventricular atrial shunt and transfer was then requested. pmh/psx: per hpi/chart meds: see med recon ros: per hpi/chart Problems: Additional Assessment/Plan candidate for left vps revision and removal of right vps. Pt asleep in OR and OR staff was unable to find correct VPS needed for case. HAs likely due to overdrainage CSF studies negative so far Plan npo after mn surgery rescheduled for girma at 8am. Consultation Date/Type/Reason Admit Date/Time Apr 18, 2016 at 18:55 Initial Consult Date 04/19/16 Type of Consultation: Neurosurgery Exam/Review of Systems Vital Signs Vitals Vital Signs Date Time Temp Pulse Resp B/P Pulse Ox O2 Delivery O2 Flow Rate FiO2 04/25/16 12:03 90 04/25/16 12:00 98.0 19 121/68 100 04/24/16 20:00 Nasal Cannula 3.0 Intake and Output 04/24/16 04/24/16 04/25/16 15:00 23:00 07:00 Intake Total 400 ml 600 ml Output Total 350 ml Balance 50 ml 600 ml Exam Constitutional: alert Psych: no complaints Results Result Diagram: 04/24/16 0600 04/24/16 0600 Medications Medications Current Medications Ondansetron HCl (Zofran Inj) 4 mg Q6H PRN IV NAUSEA AND/OR VOMITING Last administered on 04/24/16t 00:10; Admin Dose 4 MG; Start 04/18/16 at 20:30 Docusate Sodium (Colace) 100 mg Q12H PRN PO CONSTIPATION; Start 04/19/16 at 10: 30 Bisacodyl (Dulcolax) 5 mg DAILY PRN PO CONSTIPATION; Start 04/19/16 at 10:30 Bisacodyl (Dulcolax Supp) 10 mg DAILY PRN [place] CONSTIPATION; Start 04/19/16 at 10 :30 Senna/Docusate Sodium (Senokot-S) 2 tab HS PO ; Start 04/20/16 at 21:00 Tramadol HCl (Ultram) 50 mg Q6H PRN PO pain; Start 04/20/16 at 22:30 Hydromorphone HCl (Dilaudid) 1 mg Q2H PRN IV PAIN Last administered on t 12:38; Admin Dose 1 MG; Start 04/20/16 at 23:30 ALEX MOTA NP Apr 25, 2016 12:56
--- NOTE | 2016-04-25 16:42 | PN ---
Date/Time of Note Date/Time of Note DATE: 04/25/16 TIME: 16:40 Assessment/Plan VTE Prophylaxis VTE Prophylaxis Intervention: SCD's Lines/Catheters IV Catheter Type (from Nrsg): PICC Line Central line still needed: Yes Urinary Cath still in place: No Assessment/Plan Assessment/Plan 1. Diffuse headache, consider BARGE MASTER shunt dysfunction, Dr. Bernal for surgery tomorrow 2. History of spina bifida with quadriplegia 3. History of hydrocephalus status post V-P shunt with multiple revisions 4. Chronic pain syndrome. 5. Chronic right lower extremity wound. Subjective 24 Hr Interval Summary Free Text/Dictation still with headache Exam/Review of Systems Vital Signs Vitals Vital Signs Date Time Temp Pulse Resp B/P Pulse Ox O2 Delivery O2 Flow Rate FiO2 04/25/16 16:00 98.3 82 19 127/61 100 04/24/16 20:00 Nasal Cannula 3.0 Intake and Output 04/24/16 04/24/16 04/25/16 15:00 23:00 07:00 Intake Total 400 ml 600 ml Output Total 350 ml Balance 50 ml 600 ml Exam Constitutional: alert, oriented, well developed Psych: nl mood/affect, no complaints Head: atraumatic, normocephalic Eyes: EOMI, PERRL, nl conjunctiva, nl lids ENMT: nl external ears & nose, nl lips & teeth, nl nasal mucosa & septum Neck: non-tender, supple Respiratory: normal air movement, No clear to auscultation, No congested cough, No crackles/rales, No diminished breath sounds, No intercostal retraction, No labored breathing, No respirations, No tactile fremitus, No wheezing Cardiovascular: nl pulses, regular rate and rhythm, No S3, No S4, No bruits, No diastolic murmur, No edema, No gallop, No irregular rhythm, No jugular venous distention (JVD), No murmurs/extra sounds, No rub, No systolic murmur Gastrointestinal: nl liver, spleen, non-tender, soft, No ascites, No bowel sounds, No distended, No firm, No hepatomegaly, No mass , No rebound or guarding, No splenomegaly, No surgical scars, No tender Musculoskeletal: nl extremities to inspection Extremities: normal pulses, No calf tenderness, No clubbing, No cyanosis, No edema, No palpable cord, No pitting pedal edema, No tenderness Neurological: DRY END OPERATOR II-XII intact, nl mental status, nl speech, nl strength Skin: nl turgor, rash or lesions Lymph: nl lymph nodes Results Result Diagram: 04/24/16 0600 04/24/16 0600 Medications Medications Current Medications Ondansetron HCl (Zofran Inj) 4 mg Q6H PRN IV NAUSEA AND/OR VOMITING Last administered on 04/24/16 00:10; Admin Dose 4 MG; Start 04/18/16 at 20:30 Docusate Sodium (Colace) 100 mg Q12H PRN PO CONSTIPATION; Start 04/19/16 at 10: 30 Bisacodyl (Dulcolax) 5 mg DAILY PRN PO CONSTIPATION; Start 04/19/16 at 10:30 Bisacodyl (Dulcolax Supp) 10 mg DAILY PRN [place] CONSTIPATION; Start 04/19/16 at 10 :30 Senna/Docusate Sodium (Senokot-S) 2 tab HS PO ; Start 04/20/16 at 21:00 Tramadol HCl (Ultram) 50 mg Q6H PRN PO pain; Start 04/20/16 at 22:30 Hydromorphone HCl (Dilaudid) 1 mg Q2H PRN IV PAIN Last administered on 14:28; Admin Dose 1 MG; Start 04/20/16 at 23:30 ZI ROTHMAN MD Apr 25, 2016 16:42
[2016-04-25] MEDS: SENNA/DOCUSATE NA (8.6MG/50MG) TAB PO SCH (20:26)
[2016-04-26] VITALS (45 sets, daily range): BP systolic 115–188; BP diastolic 62–91; PULSE 52–116; RESP 0–24
[2016-04-26] MEDS: HYDROmorphONE 1 MG/ML SYG IV PRN ×8 (00:30→22:21)
[2016-04-26] MEDS ORDERED: CEFAZOLIN 1 GM INJ ONE (07:00)
[2016-04-26] MEDS ORDERED: LIDOCAINE 100 MG SYRINGE ONE (10:51)
[2016-04-26] MEDS ORDERED: MIDAZOLAM 1 MG/ML 2 ML INJ ONE (10:51)
[2016-04-26] MEDS ORDERED: PROPOFOL 20 ML ONE (10:51)
[2016-04-26] MEDS ORDERED: ONDANSETRON 4 MG INJ ONE (10:51)
[2016-04-26] MEDS ORDERED: DEXAMETHASONE 4 MG/ML 1 ML INJ ONE (10:51)
[2016-04-26] MEDS ORDERED: ROCURONIUM 50 MG INJ ONE (10:51)
[2016-04-26] MEDS ORDERED: MIDAZOLAM 1 MG/ML 2 ML INJ IV PRN (12:00)
[2016-04-26] MEDS ORDERED: EPHEDrine SULFATE 50 MG/5 ML SYG IV PRN (12:00)
[2016-04-26] MEDS ORDERED: ONDANSETRON 4 MG INJ IV PRN (12:00)
[2016-04-26] MEDS ORDERED: hydrALAzine 20 MG INJ IV PRN (12:00)
[2016-04-26] MEDS ORDERED: TRIMETHOBENZAMIDE 100 MG/ML VIAL IM PRN (12:00)
[2016-04-26] MEDS ORDERED: HYDROmorphONE (0.2 MG/ML) 10ML SYG IV PRN ×3 (12:00)
[2016-04-26] MEDS ORDERED: LABETALOL HCL 20MG INJ IV PRN (12:00)
[2016-04-26] MEDS ORDERED: MEPERIDINE 25 MG INJ IV PRN (12:00)
[2016-04-26] MEDS ORDERED: FENTAnyl 50 MCG/ML VIAL IV PRN ×3 (12:00)
[2016-04-26] MEDS ORDERED: DIPHENHYDRAMINE 50 MG INJ IV PRN (12:00)
[2016-04-26] MEDS ORDERED: POLYMYXIN/BACITRACIN 1L IRRIG IRR ONE (12:02)
[2016-04-26] MEDS ORDERED: GELATIN SIZE 100 SPONGE ONE (12:26)
[2016-04-26] MEDS ORDERED: LABETALOL HCL 20MG INJ ONE (12:50)
[2016-04-26] MEDS ORDERED: FENTAnyl 50 MCG/ML VIAL ONE (13:03)
[2016-04-26] MEDS ORDERED: HYDROmorphONE (0.2 MG/ML) 10ML SYG IV ONE (13:11)
[2016-04-26] MEDS ORDERED: HYDROmorphONE 1 MG/ML SYG IV STA (13:29)
[2016-04-26] MEDS ORDERED: FENTAnyl 50 MCG/ML VIAL IV ONE (13:30)
[2016-04-26] MEDS ORDERED: hydrALAzine 20 MG INJ ONE (13:38)
[2016-04-26] MEDS: NS + KCL 20 MEQ 1,000 ML IV SCH (14:47)
[2016-04-26 14:48] LABS: FLUID APPEARANCE CLEAR; FLUID RBC EST 0; FLUID WBC'S 37 /cmm
[2016-04-26 14:49] LABS: FLUID TYPE CSF
[2016-04-26 14:55] LABS: FLUID EOSINOPHIL 3 %; FLUID LYMPHOCYTES 66 %; FLUID MONOCYTES 12 %; FLUID NEUTROPHILS 19 %
--- NOTE | 2016-04-26 16:47 | PN ---
Date/Time of Note Date/Time of Note DATE: 04/26/16 TIME: 16:41 Assessment/Plan VTE Prophylaxis VTE Prophylaxis Intervention: SCD's Lines/Catheters IV Catheter Type (from Nrsg): PICC Line Central line still needed: Yes Urinary Cath still in place: No Assessment/Plan Assessment/Plan 1. GRAIN FARMWORKER shunt dysfunction, s/p left GRAIN FARMWORKER shunt 04/26/2016, follow up with surgery 2. History of spina bifida with quadriplegia 3. History of hydrocephalus status post V-P shunt with multiple revisions 4. Chronic pain syndrome. 5. Chronic right lower extremity wound. Subjective 24 Hr Interval Summary Free Text/Dictation s/p left GRAIN FARMWORKER shunt revision. Patient is in ICU. no distress. Exam/Review of Systems Vital Signs Vitals Vital Signs Date Time Temp Pulse Resp B/P Pulse Ox O2 Delivery O2 Flow Rate FiO2 04/26/16 15:45 80 16 123/71 98 Nasal Cannula 2.0 04/26/16 14:30 97.8 Intake and Output 04/25/16 04/25/16 04/26/16 15:00 23:00 07:00 Intake Total 720 ml 600 ml Balance 720 ml 600 ml Exam Constitutional: alert, oriented, well developed Psych: nl mood/affect, no complaints Head: other (s/p left GRAIN FARMWORKER shunt) Eyes: EOMI, PERRL, nl conjunctiva, nl lids ENMT: mucosa pink and moist, nl external ears & nose, nl lips & teeth, nl nasal mucosa & septum Neck: non-tender, supple Respiratory: clear to auscultation, normal air movement, No congested cough, No crackles/rales, No diminished breath sounds, No intercostal retraction, No labored breathing, No respirations, No tactile fremitus, No wheezing Cardiovascular: nl pulses, regular rate and rhythm, No S3, No S4, No bruits, No diastolic murmur, No edema, No gallop, No irregular rhythm, No jugular venous distention (JVD), No murmurs/extra sounds, No rub, No systolic murmur Gastrointestinal: nl liver, spleen, non-tender, soft, No ascites, No bowel sounds, No distended, No firm, No hepatomegaly, No mass , No rebound or guarding, No splenomegaly, No surgical scars, No tender Musculoskeletal: nl extremities to inspection Extremities: normal pulses Neurological: REMOTE SENSING SURVEYOR II-XII intact, nl mental status, nl speech, nl strength Skin: nl turgor Lymph: nl lymph nodes Results Result Diagram: 04/24/16 0600 04/24/16 0600 Results 24 hrs Laboratory Tests Test 04/26/16 12:00 Body Fluid Appearance CLEAR Body Fluid Color COLORLESS Body Fluid Eosinophils % 3 Body Fluid Lymphocytes (%) 66 Body Fluid Monocytes % 12 Body Fluid Neutrophils % 19 Body Fluid RBC 0 Body Fluid Type CSF Body Fluid Volume 5.0 Body Fluid WBC 37 Medications Medications Current Medications Ondansetron HCl (Zofran Inj) 4 mg Q6H PRN IV NAUSEA AND/OR VOMITING Last administered on 04/24/16 00:10; Admin Dose 4 MG; Start 04/18/16 at 20:30 Docusate Sodium (Colace) 100 mg Q12H PRN PO CONSTIPATION; Start 04/19/16 at 10: 30 Bisacodyl (Dulcolax) 5 mg DAILY PRN PO CONSTIPATION; Start 04/19/16 at 10:30 Bisacodyl (Dulcolax Supp) 10 mg DAILY PRN [place] CONSTIPATION; Start 04/19/16 at 10 :30 Senna/Docusate Sodium (Senokot-S) 2 tab HS PO ; Start 04/20/16 at 21:00 Tramadol HCl 50 mg 50 mg Q6H PRN PO pain; Start 04/20/16 at 22:30 Potassium Chloride/Sodium Chloride (NS-KCl 20 Meq) 1,000 ml @ 100 mls/hr Q10H IV Last administered on 04/26/16 14:47; Admin Dose 100 MLS/HR; Start 04/26/16 at 12:49 Hydromorphone HCl (Dilaudid) 1 mg Q1HWA PRN IV PAIN; Start 04/26/16 at 15:00; Stop 04/27/16 at 15:00 Hydralazine HCl (Apresoline) 5 mg Q6H PRN IV sbp above 160; Start 04/26/16 at 15:00 ZI ROTHMAN MD Apr 26, 2016 16:47
[2016-04-26 17:54] LABS: BASOPHILS % 0.3 % (0.0-2.0); HEMATOCRIT 32.8 % (42.0-52.0); HEMOGLOBIN 11.1 g/dl (14.0-18.0); LYMPHOCYTES # 1.2 10^3/ul (0.8-2.9); LYMPHOCYTES % 8.9 % (15.0-51.0); MEAN CORPUSCULAR HEMOGLOBIN 28.3 pg (29.0-33.0); MEAN CORPUSCULAR HGB CONC 33.9 g/dl (32.0-37.0); MEAN CORPUSCULAR VOLUME 83.5 fl (82.0-101.0); MEAN PLATELET VOLUME 7.3 fl (7.4-10.4); MONOCYTE # 0.2 10^3/ul (0.3-0.9); MONOCYTES % 1.3 % (0.0-11.0); NEUTROPHIL # 12.3 10^3/ul (1.6-7.5); NEUTROPHILS % 89.5 % (39.0-77.0); PLATELET COUNT 404 10^3/UL (140-440); RED BLOOD COUNT 3.93 10^6/ul (4.70-6.10); RED CELL DISTRIBUTION WIDTH 16.6 % (11.5-14.5); UNCORRECTED WBC 13.7 10^3/ul (4.8-10.8); WHITE BLOOD COUNT 13.7 10^3/ul (4.8-10.8)
[2016-04-26] MEDS: hydrALAzine 20 MG INJ IV PRN (17:59)
[2016-04-26 18:33] LABS: CONDITION 1
[2016-04-26 18:34] LABS: LH ANALYZER COMMENTS 1
[2016-04-26] MEDS: SENNA/DOCUSATE NA (8.6MG/50MG) TAB PO SCH (20:10)
[2016-04-27] VITALS (22 sets, daily range): BP systolic 132–192; BP diastolic 61–110; PULSE 57–114; RESP 11–25
[2016-04-27] MEDS: HYDROmorphONE 1 MG/ML SYG IV PRN ×10 (01:00→23:10)
[2016-04-27] MEDS: NS + KCL 20 MEQ 1,000 ML IV SCH ×4 (01:10→19:40)
--- NOTE | 2016-04-27 08:19 | PN ---
Date/Time of Note Date/Time of Note DATE: 04/27/16 TIME: 08:14 Assessment/Plan VTE Prophylaxis VTE Prophylaxis Intervention: SCD's (All) Lines/Catheters IV Catheter Type (from Nrs): PICC Line Central line still needed: Yes Urinary Cath still in place: No Assessment/Plan Chief Complaint/Hosp Course Assessment 26-year-old gentleman with a history of spina bifida status post multiple MONUMENT STONECUTTER shunt revisions underwent left MONUMENT STONECUTTER shunt revision yesterday 1. status post left MONUMENT STONECUTTER shunt revision 2. History of chronic pain 3. History of right lower extremity wound Plan 1. Continue neurosurgery recommendations 2. Neurochecks 3. SCDs for DVT prophylaxis 4. Advance diet per neurosurgery 5. Transfer to telemetry once cleared by neurosurgery Problems: Subjective 24 Hr Interval Summary Free Text/Dictation Patient underwent MONUMENT STONECUTTER shunt revision Remains awake alert oriented this morning Remains hemodynamically stable No nausea no vomiting Exam/Review of Systems Vital Signs Vitals Vital Signs Date Time Temp Pulse Resp B/P Pulse Ox O2 Delivery O2 Flow Rate FiO2 04/27/16 07:30 97.6 57 18 143/77 100 Nasal Cannula 3.0 Intake and Output 04/26/16 04/26/16 04/27/16 15:00 23:00 07:00 Intake Total 2000 ml 900 ml 600 ml Output Total 580 ml 580 ml 380 ml Balance 1420 ml 320 ml 220 ml Exam GENERAL: Moderately obese gentleman comfortable at rest no acute distress VITAL SIGNS: per chart NECK: Supple. No JVD or lymphadenopathy. CARDIAC EXAM: S1, S2. No added sounds or murmurs. CHEST: clear bilaterally, No added sounds, rales or wheezes ABDOMEN: Soft, nontender. No guarding or rebound. EXTREMITIES: No cyanosis, clubbing or edema. NEUROLOGIC: Quadriplegia Results Result Diagram: 04/26/16 1740 04/24/16 0600 Results 24 hrs Laboratory Tests Test 04/26/16 12:00 04/26/16 17:40 Body Fluid Appearance CLEAR Body Fluid Color COLORLESS Body Fluid Eosinophils % 3 Body Fluid Lymphocytes (%) 66 Body Fluid Monocytes % 12 Body Fluid Neutrophils % 19 Body Fluid RBC 0 Body Fluid Type CSF Body Fluid Volume 5.0 Body Fluid WBC 37 Basophils # 0.0 Basophils % 0.3 Blood Morphology Comment Eosinophils # 0.0 Eosinophils % 0.0 Hematocrit 32.8 L Hemoglobin 11.1 L Lymphocytes # 1.2 Lymphocytes % 8.9 L Mean Corpuscular Hemoglobin 28.3 L Mean Corpuscular Hemoglobin Concent 33.9 Mean Corpuscular Volume 83.5 Mean Platelet Volume 7.3 L Monocytes # 0.2 L Monocytes % 1.3 Neutrophils # 12.3 H Neutrophils % 89.5 H Nucleated Red Blood Cells # 0.0 Nucleated Red Blood Cells % 0.0 Platelet Count 404 Red Blood Count 3.93 L Red Cell Distribution Width 16.6 H White Blood Count 13.7 H Medications Medications Current Medications Ondansetron HCl (Zofran Inj) 4 mg Q6H PRN IV NAUSEA AND/OR VOMITING Last administered on 04/24/16 00:10; Admin Dose 4 MG; Start 04/18/16 at 20:30 Docusate Sodium (Colace) 100 mg Q12H PRN PO CONSTIPATION; Start 04/19/16 at 10: 30 Bisacodyl (Dulcolax) 5 mg DAILY PRN PO CONSTIPATION; Start 04/19/16 at 10:30 Bisacodyl (Dulcolax Supp) 10 mg DAILY PRN [place] CONSTIPATION; Start 04/19/16 at 10 :30 Senna/Docusate Sodium (Senokot-S) 2 tab HS PO ; Start 04/20/16 at 21:00 Tramadol HCl 50 mg 50 mg Q6H PRN PO pain; Start 04/20/16 at 22:30 Potassium Chloride/Sodium Chloride (NS-KCl 20 Meq) 1,000 ml @ 100 mls/hr Q10H IV Last administered on 04/27/16 01:10; Admin Dose 100 MLS/HR; Start 04/26/16 at 12:49 Hydromorphone HCl (Dilaudid) 1 mg Q1HWA PRN IV PAIN Last administered on 05:02; Admin Dose 1 MG; Start 04/26/16 at 15:00; Stop 04/27/16 at 15:00 Hydralazine HCl (Apresoline) 5 mg Q6H PRN IV sbp above 160 Last administered on 04/26/16 17:59; Admin Dose 5 MG; Start 04/26/16 at 15:00 MEENAKSHI SANDRA MD[facility] Apr 27, 2016 08:19
--- NOTE | 2016-04-27 12:10 | CONS ---
Date/Time of Note Date/Time of Note DATE: 04/27/16 TIME: 12:05 Assessment/Plan Assessment/Plan Chief Complaint/Hosp Course Very pleasant 26 y/o male with pmh: Spina Bifida, depression, chronic headaches with hydrocephalus. Pt had VPS placement as a child but most recently underwent multiple bilateral PACKAGING SPECIALIST (Abd/Pleural) shunt placements with Dr. Triplett starting 2008 and most recent left vps revision was performed at [facility] by Dr. Triplett as well. Pt presents with bifrontal HAs. Per Dr. Triplett's notes states possible non functioning left vps due to "scarring in the peritoneal cavity not allowing enough surface for CSF absorption area." Dr. Triplett / Dr. Castelan (partner) did not feel comfortable performing ventricular atrial shunt and transfer was then requested. pmh/psx: per hpi/chart meds: see med recon ros: per hpi/chart Problems: Additional Assessment/Plan s/p right vps removal with Left vps revision Left vps change to programable Medtronic Strata II Valve set at 1.0 CTB pending surgical sites: CDI Plan okay to downgrade CTB today for follow up DC planning okay from NS when medically stable follow up with Dr. Bernal in 2 weeks okay to shower in 2 days New shunt is MRI compatible but will need VPS query after any future MRI studies. Consultation Date/Type/Reason Admit Date/Time Apr 18, 2016 at 18:55 Initial Consult Date 04/19/16 Type of Consultation: Neurosurgery 24 HR Interval Summary Free Text/Dictation S: s/p right vps removal and left VPS (Shunt) revision with Strata II Valve. POD #1 doing well and HAs improving Surgical site CDI Exam/Review of Systems Vital Signs Vitals Vital Signs Date Time Temp Pulse Resp B/P Pulse Ox O2 Delivery O2 Flow Rate FiO2 04/27/16 12:00 97.7 62 17 150/85 100 Room Air 04/27/16 07:30 3.0 Intake and Output 04/26/16 04/26/16 04/27/16 15:00 23:00 07:00 Intake Total 2000 ml 900 ml 600 ml Output Total 580 ml 580 ml 380 ml Balance 1420 ml 320 ml 220 ml Exam Neurological: other (MS: AAOX4 CN: PERRL M; FC to bilat UE, 0/5 LE ) Results Result Diagram: 04/26/16 1740 04/24/16 0600 Results 24 hrs Laboratory Tests Test 04/26/16 17:40 Basophils # 0.0 Basophils % 0.3 Blood Morphology Comment Eosinophils # 0.0 Eosinophils % 0.0 Hematocrit 32.8 L Hemoglobin 11.1 L Lymphocytes # 1.2 Lymphocytes % 8.9 L Mean Corpuscular Hemoglobin 28.3 L Mean Corpuscular Hemoglobin Concent 33.9 Mean Corpuscular Volume 83.5 Mean Platelet Volume 7.3 L Monocytes # 0.2 L Monocytes % 1.3 Neutrophils # 12.3 H Neutrophils % 89.5 H Nucleated Red Blood Cells # 0.0 Nucleated Red Blood Cells % 0.0 Platelet Count 404 Red Blood Count 3.93 L Red Cell Distribution Width 16.6 H White Blood Count 13.7 H Medications Medications Current Medications Ondansetron HCl (Zofran Inj) 4 mg Q6H PRN IV NAUSEA AND/OR VOMITING Last administered on 04/24/16 00:10; Admin Dose 4 MG; Start 04/18/16 at 20:30 Docusate Sodium (Colace) 100 mg Q12H PRN PO CONSTIPATION; Start 04/19/16 at 10: 30 Bisacodyl (Dulcolax) 5 mg DAILY PRN PO CONSTIPATION; Start 04/19/16 at 10:30 Bisacodyl (Dulcolax Supp) 10 mg DAILY PRN [place] CONSTIPATION; Start 04/19/16 at 10 :30 Senna/Docusate Sodium (Senokot-S) 2 tab HS PO ; Start 04/20/16 at 21:00 Tramadol HCl 50 mg 50 mg Q6H PRN PO pain; Start 04/20/16 at 22:30 Potassium Chloride/Sodium Chloride (NS-KCl 20 Meq) 1,000 ml @ 100 mls/hr Q10H IV Last administered on 04/27/16 10:43; Admin Dose 100 MLS/HR; Start 04/26/16 at 12:49 Hydromorphone HCl (Dilaudid) 1 mg Q1HWA PRN IV PAIN Last administered on 08:42; Admin Dose 1 MG; Start 04/26/16 at 15:00; Stop 04/27/16 at 15:00 Hydralazine HCl (Apresoline) 5 mg Q6H PRN IV sbp above 160 Last administered on 04/26/16t 17:59; Admin Dose 5 MG; Start 04/26/16 at 15:00 ALEX MOTA NP Apr 27, 2016 12:10
--- NOTE | 2016-04-27 13:10 | RADRPT ---
PROCEDURE: CT Brain without contrast. CLINICAL INDICATION: Follow-up ventriculoperitoneal shunt catheter removal. History of hydrocephal us. TECHNIQUE: A multiplanar CT of the brain was performed on a CT scanner utilizing axial imaging fro m the skull base through the vertex without IV contrast. The CTDIvol is 43.48 mGy and the DLP is 72 0.23 mGycm. One or more of the following dose reduction techniques were utilized: Automated exposu re control, adjustment of the mA and/or kV according to patient size, use of iterative reconstructio n technique. COMPARISON: 04/19/2016 CT brain. FINDINGS: No evidence of intracranial hemorrhage or abnormal extra-axial fluid collection. The right parenchyma is normal attenuation morphology with preservation of mcgregor white differentiatio n. There is effacement of the gyri and sulci secondary to marked ventriculomegaly and hydrocephalou s. The right posterior ventriculostomy catheter has been removed since the prior CT brain of 2016. The left ventriculostomy catheter has been advised to with subcutaneous gas surrounding the r eservoir compatible with postoperative placement of left parietal ventriculostomy. The catheter tip resides at the level of the foramen of lumbar. The posterior fossa contents, brainstem, craniocervical junction, orbits, pituitary axis, paranasal sinuses, mastoid air cells, and calvarium are unremarkable. IMPRESSION: 1. Marked interval development of ventriculomegaly and hydrocephalous with effacement of cortical s ulci and gyri compared to the prior study 04/19/2016. 2. Revision of the left parietal ventriculostomy catheter with distal tip now residing at the level of the foramen of [place] with postsurgical changes surrounding the reservoir and surrounding scalp s oft tissues. 3. Interval removal of right parietal ventriculostomy. 3. No abnormal extra-axial fluid collection or parenchymal hemorrhage. RPTAT:AAJJ Physician Reece Date Time Electronically viewed and signed by Physician Reece on 04/27/2016 13:10 SANDER/
[2016-04-27] MEDS: hydrALAzine 20 MG INJ IV PRN (17:37)
[2016-04-27] MEDS: SENNA/DOCUSATE NA (8.6MG/50MG) TAB PO SCH (19:42)
[2016-04-28] VITALS (13 sets, daily range): BP systolic 123–177; BP diastolic 62–99; PULSE 66–85; RESP 16–20
[2016-04-28] MEDS: HYDROmorphONE 1 MG/ML SYG IV PRN ×12 (01:00→22:54)
[2016-04-28] MEDS: ONDANSETRON 4 MG INJ IV PRN ×2 (02:48→12:55)
--- NOTE | 2016-04-28 12:46 | PN ---
Date/Time of Note Date/Time of Note DATE: 04/28/16 TIME: 12:43 Assessment/Plan VTE Prophylaxis VTE Prophylaxis Intervention: SCD's Lines/Catheters IV Catheter Type (from Nrsg): PICC Line Central line still needed: Yes Urinary Cath still in place: Yes Reason Cath still needed: urinary retention Assessment/Plan Chief Complaint/Hosp Course Assessment 26-year-old gentleman with a history of spina bifida status post multiple DEPUTY FIRE MARSHAL shunt revisions underwent left DEPUTY FIRE MARSHAL shunt revision yesterday 1. status post left DEPUTY FIRE MARSHAL shunt revision 2. History of chronic pain 3. History of right lower extremity wound Plan 1. Continue neurosurgery recommendations 2. Neurochecks 3. SCDs for DVT prophylaxis 4. Aspiration precautions 5. Pain management Anticipate discharge tomorrow if pain is well controlled and tolerating by mouth diet Problems: Subjective 24 Hr Interval Summary Free Text/Dictation Patient is awake alert and oriented Complaining of headache Denies shortness of breath chest pain or palpitations Exam/Review of Systems Vital Signs Vitals Vital Signs Date Time Temp Pulse Resp B/P Pulse Ox O2 Delivery O2 Flow Rate FiO2 04/28/16 12:38 85 04/28/16 11:02 98.1 20 128/65 96 04/27/16 18:12 3.0 04/27/16 18:00 Room Air Intake and Output 04/27/16 04/27/16 04/28/16 15:00 23:00 07:00 Intake Total 950 ml 200 ml 100 ml Output Total 1140 ml 240 ml 750 ml Balance -190 ml -40 ml -650 ml Exam GENERAL: Moderately obese gentleman comfortable at rest no acute distress VITAL SIGNS: per chart NECK: Supple. No JVD or lymphadenopathy. CARDIAC EXAM: S1, S2. No added sounds or murmurs. CHEST: clear bilaterally, No added sounds, rales or wheezes ABDOMEN: Soft, nontender. No guarding or rebound. EXTREMITIES: No cyanosis, clubbing or edema. NEUROLOGIC: Incomplete quadriplegia Results Result Diagram: 04/26/16 1740 04/24/16 0600 Medications Medications Current Medications Ondansetron HCl (Zofran Inj) 4 mg Q6H PRN IV NAUSEA AND/OR VOMITING Last administered on 04/28/16t 02:48; Admin Dose 4 MG; Start 04/18/16 at 20:30 Docusate Sodium (Colace) 100 mg Q12H PRN PO CONSTIPATION; Start 04/19/16 at 10: 30 Bisacodyl (Dulcolax) 5 mg DAILY PRN PO CONSTIPATION; Start 04/19/16 at 10:30 Bisacodyl (Dulcolax Supp) 10 mg DAILY PRN [place] CONSTIPATION; Start 04/19/16 at 10 :30 Senna/Docusate Sodium (Senokot-S) 2 tab HS PO ; Start 04/20/16 at 21:00 Tramadol HCl 50 mg 50 mg Q6H PRN PO pain; Start 04/20/16 at 22:30 Potassium Chloride/Sodium Chloride (NS-KCl 20 Meq) 1,000 ml @ 100 mls/hr Q10H IV Last administered on 04/27/16 19:40; Admin Dose 100 MLS/HR; Start 04/26/16 at 12:49 Hydralazine HCl (Apresoline) 5 mg Q6H PRN IV sbp above 160 Last administered on 04/27/16 17:37; Admin Dose 5 MG; Start 04/26/16 at 15:00 Hydromorphone HCl (Dilaudid) 1 mg Q2 PRN IV PAIN Last administered on 10:44; Admin Dose 1 MG; Start 04/27/16 at 17:00 MEENAKSHI SANDRA MD, [facility] Apr 28, 2016 12:46
[2016-04-28] MEDS: NS + KCL 20 MEQ 1,000 ML IV SCH ×2 (12:47→20:54)
[2016-04-28] MEDS: SENNA/DOCUSATE NA (8.6MG/50MG) TAB PO SCH (20:53)
[2016-04-29] VITALS (12 sets, daily range): BP systolic 130–157; BP diastolic 69–85; PULSE 77–95; RESP 16–18
[2016-04-29] MEDS: HYDROmorphONE 1 MG/ML SYG IV PRN ×10 (00:50→23:08)
[2016-04-29 07:04] LABS: POTASSIUM 4.1 mmol/L (3.5-5.1)
[2016-04-29 07:06] LABS: CREATININE 0.43 mg/dl (0.61-1.24)
[2016-04-29 07:07] LABS: PHOSPHORUS 3.7 mg/dl (2.5-4.9)
[2016-04-29 07:08] LABS: CALCIUM 8.9 mg/dl (8.4-10.2); MAGNESIUM 1.3 mg/dl (1.7-2.5)
[2016-04-29 07:32] LABS: BASOPHILS % 0.2 % (0.0-2.0); EOSINOPHILS # 0.3 10^3/ul (0.0-0.5); EOSINOPHILS % 2.3 % (0.0-7.0); HEMATOCRIT 33.3 % (42.0-52.0); HEMOGLOBIN 11.3 g/dl (14.0-18.0); LYMPHOCYTES # 4.5 10^3/ul (0.8-2.9); LYMPHOCYTES % 36.3 % (15.0-51.0); MEAN CORPUSCULAR HEMOGLOBIN 28.1 pg (29.0-33.0); MEAN CORPUSCULAR HGB CONC 33.8 g/dl (32.0-37.0); MEAN CORPUSCULAR VOLUME 83.1 fl (82.0-101.0); MEAN PLATELET VOLUME 7.7 fl (7.4-10.4); MONOCYTE # 0.8 10^3/ul (0.3-0.9); MONOCYTES % 6.6 % (0.0-11.0); NEUTROPHIL # 6.8 10^3/ul (1.6-7.5); NEUTROPHILS % 54.6 % (39.0-77.0); PLATELET COUNT 387 10^3/UL (140-440); RED CELL DISTRIBUTION WIDTH 15.9 % (11.5-14.5); UNCORRECTED WBC 12.5 10^3/ul (4.8-10.8); WHITE BLOOD COUNT 12.5 10^3/ul (4.8-10.8)
[2016-04-29 07:35] LABS: CONDITION 1; LH ANALYZER COMMENTS 1
[2016-04-29] MEDS: NS + KCL 20 MEQ 1,000 ML IV SCH ×2 (08:09→15:04)
--- NOTE | 2016-04-29 13:58 | PN ---
Date/Time of Note Date/Time of Note DATE: 04/29/16 TIME: 13:49 Assessment/Plan VTE Prophylaxis VTE Prophylaxis Intervention: SCD's Lines/Catheters IV Catheter Type (from Nrsg): PICC Line Central line still needed: Yes Urinary Cath still in place: Yes Reason Cath still needed: other (indicate) Assessment/Plan Assessment/Plan 1. ELECTRONIC EQUIPMENT MAINT TECH shunt dysfunction, s/p left ELECTRONIC EQUIPMENT MAINT TECH shunt 04/26/2016, headache, follow up with Dr. Bernal 2. History of spina bifida with quadriplegia 3. History of hydrocephalus status post V-P shunt with multiple revisions 4. Chronic pain syndrome. Subjective 24 Hr Interval Summary Free Text/Dictation still with headache Exam/Review of Systems Vital Signs Vitals Vital Signs Date Time Temp Pulse Resp B/P Pulse Ox O2 Delivery O2 Flow Rate FiO2 04/29/16 12:22 82 04/29/16 11:35 98.2 18 132/70 98 04/29/16 00:27 2.0 04/27/16 18:00 Room Air Intake and Output 04/28/16 04/28/16 04/29/16 15:00 23:00 07:00 Intake Total 1200 ml 100 ml Output Total 2000 ml 2000 ml Balance -800 ml -1900 ml Exam Constitutional: alert, oriented, well developed Head: normocephalic Eyes: EOMI, PERRL, nl conjunctiva, nl lids, nl sclera ENMT: mucosa pink and moist, nl external ears & nose, nl lips & teeth, nl nasal mucosa & septum Neck: non-tender, supple Respiratory: clear to auscultation, normal air movement, No congested cough, No crackles/rales, No diminished breath sounds, No intercostal retraction, No labored breathing, No respirations, No tactile fremitus, No wheezing Cardiovascular: nl pulses, regular rate and rhythm, No S3, No S4, No bruits, No diastolic murmur, No edema, No gallop, No irregular rhythm, No jugular venous distention (JVD), No murmurs/extra sounds, No rub, No systolic murmur Gastrointestinal: nl liver, spleen, non-tender, soft, No ascites, No bowel sounds, No distended, No firm, No hepatomegaly, No mass , No rebound or guarding, No splenomegaly, No surgical scars, No tender Musculoskeletal: nl extremities to inspection Extremities: normal pulses, No calf tenderness, No clubbing, No cyanosis, No edema, No other, No palpable cord, No pitting pedal edema, No tenderness Neurological: 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, nl mental status, nl speech, nl strength Skin: nl turgor, rash or lesions Lymph: nl lymph nodes Results Result Diagram: 04/29/16 0537 04/29/16 0537 Results 24 hrs Laboratory Tests Test 04/29/16 05:37 Anion Gap 18 H Basophils # 0.0 Basophils % 0.2 Blood Morphology Comment Blood Urea Nitrogen 11 Calcium Level 8.9 Carbon Dioxide Level 26 Chloride Level 98 Creatinine 0.43 L Eosinophils # 0.3 Eosinophils % 2.3 Glucose Level 77 Hematocrit 33.3 L Hemoglobin 11.3 L Lymphocytes # 4.5 H Lymphocytes % 36.3 Magnesium Level 1.3 L Mean Corpuscular Hemoglobin 28.1 L Mean Corpuscular Hemoglobin Concent 33.8 Mean Corpuscular Volume 83.1 Mean Platelet Volume 7.7 Monocytes # 0.8 Monocytes % 6.6 Neutrophils # 6.8 Neutrophils % 54.6 Nucleated Red Blood Cells # 0.0 Nucleated Red Blood Cells % 0.0 Phosphorus Level 3.7 Platelet Count 387 Potassium Level 4.1 Red Blood Count 4.00 L Red Cell Distribution Width 15.9 H Sodium Level 138 White Blood Count 12.5 H Medications Medications Current Medications Ondansetron HCl (Zofran Inj) 4 mg Q6H PRN IV NAUSEA AND/OR VOMITING Last administered on 04/28/16 12:55; Admin Dose 4 MG; Start 04/18/16 at 20:30 Docusate Sodium (Colace) 100 mg Q12H PRN PO CONSTIPATION; Start 04/19/16 at 10: 30 Bisacodyl (Dulcolax) 5 mg DAILY PRN PO CONSTIPATION; Start 04/19/16 at 10:30 Bisacodyl (Dulcolax Supp) 10 mg DAILY PRN [place] CONSTIPATION; Start 04/19/16 at 10 :30 Senna/Docusate Sodium (Senokot-S) 2 tab HS PO Last administered on 04/28/16 20 :53; Admin Dose 2 TAB; Start 04/20/16 at 21:00 Tramadol HCl 50 mg 50 mg Q6H PRN PO pain; Start 04/20/16 at 22:30 Potassium Chloride/Sodium Chloride (NS-KCl 20 Meq) 1,000 ml @ 100 mls/hr Q10H IV Last administered on 04/28/16 20:54; Admin Dose 100 MLS/HR; Start 04/26/16 at 12:49 Hydralazine HCl (Apresoline) 5 mg Q6H PRN IV sbp above 160 Last administered on 04/27/16 17:37; Admin Dose 5 MG; Start 04/26/16 at 15:00 Hydromorphone HCl (Dilaudid) 1 mg Q2 PRN IV PAIN Last administered on 13:02; Admin Dose 1 MG; Start 04/27/16 at 17:00 ZI ROTHMAN MD Apr 29, 2016 13:58
--- NOTE | 2016-04-29 17:55 | CONS ---
Date/Time of Note Date/Time of Note DATE: 04/29/16 TIME: 17:50 Assessment/Plan Assessment/Plan Chief Complaint/Hosp Course Very pleasant 26 y/o male with pmh: Spina Bifida, depression, chronic headaches with hydrocephalus. Pt had VPS placement as a child but most recently underwent multiple bilateral BOATWRIGHT (Abd/Pleural) shunt placements with Dr. Triplett starting 2008 and most recent left vps revision was performed at [facility] by Dr. Triplett as well. Pt presents with bifrontal HAs. Per Dr. Triplett's notes states possible non functioning left vps due to "scarring in the peritoneal cavity not allowing enough surface for CSF absorption area." Dr. Triplett / Dr. Castelan (partner) did not feel comfortable performing ventricular atrial shunt and transfer was then requested. pmh/psx: per hpi/chart meds: see med recon ros: per hpi/chart Problems: Additional Assessment/Plan right vps removal and left proximal shunt revision c/o METZGER, otherwise neuro status at baseline CT brain 04/27 showed enlargement of ventricles , no new bleed plan vps setting increased from 1.0 to 0.5 (increase drainage) pumped left vps x 20 neurochecks Q3 see orders CT brain CT abd images and plan reviewed with Dr. Bernal Consultation Date/Type/Reason Admit Date/Time Apr 18, 2016 at 18:55 Initial Consult Date 04/19/16 Type of Consultation: Neurosurgery Reason for Consultation S: cont to have METZGER, no incisional pain Pt advised not to touch surgical site derma sheppard has appears to have been pealed off and some redness to site. Exam/Review of Systems Vital Signs Vitals Vital Signs Date Time Temp Pulse Resp B/P Pulse Ox O2 Delivery O2 Flow Rate FiO2 04/29/16 17:02 2.0 04/29/16 16:57 79 04/29/16 15:38 145/78 04/29/16 15:00 97.9 18 95 04/27/16 18:00 Room Air Intake and Output 04/28/16 04/28/16 04/29/16 15:00 23:00 07:00 Intake Total 1200 ml 100 ml Output Total 2000 ml 2000 ml Balance -800 ml -1900 ml Exam Neurological: other (MS: AAOX4 cn: perrl m 5/5 bilat UE, 0/5 LE ) Results Result Diagram: 04/29/16 0537 04/29/16 0537 Results 24 hrs Laboratory Tests Test 04/29/16 05:37 Anion Gap 18 H Basophils # 0.0 Basophils % 0.2 Blood Morphology Comment Blood Urea Nitrogen 11 Calcium Level 8.9 Carbon Dioxide Level 26 Chloride Level 98 Creatinine 0.43 L Eosinophils # 0.3 Eosinophils % 2.3 Glucose Level 77 Hematocrit 33.3 L Hemoglobin 11.3 L Lymphocytes # 4.5 H Lymphocytes % 36.3 Magnesium Level 1.3 L Mean Corpuscular Hemoglobin 28.1 L Mean Corpuscular Hemoglobin Concent 33.8 Mean Corpuscular Volume 83.1 Mean Platelet Volume 7.7 Monocytes # 0.8 Monocytes % 6.6 Neutrophils # 6.8 Neutrophils % 54.6 Nucleated Red Blood Cells # 0.0 Nucleated Red Blood Cells % 0.0 Phosphorus Level 3.7 Platelet Count 387 Potassium Level 4.1 Red Blood Count 4.00 L Red Cell Distribution Width 15.9 H Sodium Level 138 White Blood Count 12.5 H Medications Medications Current Medications Ondansetron HCl (Zofran Inj) 4 mg Q6H PRN IV NAUSEA AND/OR VOMITING Last administered on 04/28/16 12:55; Admin Dose 4 MG; Start 04/18/16 at 20:30 Docusate Sodium (Colace) 100 mg Q12H PRN PO CONSTIPATION; Start 04/19/16 at 10: 30 Bisacodyl (Dulcolax) 5 mg DAILY PRN PO CONSTIPATION; Start 04/19/16 at 10:30 Bisacodyl (Dulcolax Supp) 10 mg DAILY PRN [place] CONSTIPATION; Start 04/19/16 at 10 :30 Senna/Docusate Sodium (Senokot-S) 2 tab HS PO Last administered on 04/28/16 20 :53; Admin Dose 2 TAB; Start 04/20/16 at 21:00 Tramadol HCl 50 mg 50 mg Q6H PRN PO pain; Start 04/20/16 at 22:30 Potassium Chloride/Sodium Chloride (NS-KCl 20 Meq) 1,000 ml @ 100 mls/hr Q10H IV Last administered on 04/29/16 15:04; Admin Dose 100 MLS/HR; Start 04/26/16 at 12:49 Hydralazine HCl (Apresoline) 5 mg Q6H PRN IV sbp above 160 Last administered on 04/27/16 17:37; Admin Dose 5 MG; Start 04/26/16 at 15:00 Hydromorphone HCl (Dilaudid) 1 mg Q2 PRN IV PAIN Last administered on 17:00; Admin Dose 1 MG; Start 04/27/16 at 17:00 ALEX MOTA NP Apr 29, 2016 17:55
--- NOTE | 2016-04-29 21:28 | RADRPT ---
PROCEDURE: CT Head without. CLINICAL INDICATION: Follow up ventriculomegaly. TECHNIQUE: The study was performed utilizing a multi-slice, multidetector CT scanner. Direct spira l 1 mm axial sections were obtained through the head without the use of intravenous contrast materia l. Coronal and sagittal reformations were obtained. The images were reviewed on a PACS workstation. RADIATION DOSE: CTDIvol: 43.5 mGyDLP: 912.0 mGy-cm COMPARISON: 04/27/2016, 04/19/2016, 04/13/2016 FINDINGS: There is redemonstration of postoperative changes from left parietal approach ventriculostomy, with tip in the body of the right lateral ventricle. There is stable mild layering hemorrhage in the occ ipital horns. There is moderate ventriculomegaly, slightly improved compared to prior examination. The ventricles measure 4.8 cm in transverse frontal diameter which is decreased compared to 5.2 cm on the prior examination. The right atrium measures 2.2 cm (2.8 cm on prior examination) and the le ft atrium measures 2.2 cm (2.5 cm on prior examination. There is minimal residual periventricular w andrez matter hypodensity. The third ventricle is significantly improved in size measuring 1.4 cm in transverse diameter compared to 1.7 cm on prior exam. There is mild interval improvement in the yogesh ateral temporal horns, with moderate prominence, measuring 1.3 cm on the right and 1.6 cm on the lef t compared to 1.7 cm on the right and 1.9 cm on the left on the prior examination. There is no extra-axial fluid collection, mass lesion or midline shift. The mcgregor-white matter differentiation a ppears preserved. There is redemonstration of low lying cerebellar tonsils, which is stable on mult iple prior examinations dating back to 04/13/2016. Though this is radiographically stable, correlat ion with clinical symptoms of herniation is recommended. The prepontine and the suprasellar cistern s are patent. The midline structures are intact. There is a prominent mucous retention cyst in the left maxillary sinus. The remaining paranasal sinuses, mastoid air cells and middle ear cavities ar e normally aerated. IMPRESSION: 1. Mild interval improvement in the hydrocephalous seen in both lateral ventricles, with a decrease d size of the frontal horns and atria, though persistent moderate hydrocephalus. 2. Persistent mild periventricular white matter hypodensity, which may be related to transependymal CSF migration. 3. Stable layering hemorrhage of the bilateral occipital horns. 4. Left parietal approach ventriculostomy with tip in the body of the right lateral ventricle. The above findings were discussed with Patient's Nurse Kota Moreira by telephone on 04/29/2016 9:22:4 8 PM. RPTAT: HGAS .Etienne De Jesus MD, Date Time Electronically viewed and signed by .Etienne De Jesus MD, MD on 04/29/2016 21:27 .S/
[2016-04-29] MEDS: SENNA/DOCUSATE NA (8.6MG/50MG) TAB PO SCH (21:50)
[2016-04-30] VITALS (12 sets, daily range): BP systolic 119–182; BP diastolic 59–80; PULSE 72–130; RESP 14–22
--- NOTE | 2016-04-30 01:33 | RADRPT ---
PROCEDURE: CT Abdomen and Pelvis without contrast. CLINICAL INDICATION: Ventriculostomy catheter placement. TECHNIQUE: CT scan of the abdomen and pelvis was performed on a multidetector slice CT scanner. N o intravenous contrast material was utilized. Sagittal and coronal reformatted images were obtained from the axial source images. Images were reviewed on a high-resolution PACS workstation. Exam CTDl vol = 25 mGy and DLP = 1564 Gy-cm. COMPARISON: 06/22/2015 FINDINGS: There is a right ventral abdominal wall subcutaneous catheter with traverses the midline and anterio r is the left ventral . Peritoneal cavity to the left of midline at the mid abdomen. The catheter tip is at the lateral aspect of the cecum. There is no abnormal fluid collection associated with th e catheter. There is no free intraperitoneal fluid. There is no obstruction or ileus. The appendix is visualized and is normal in size. There is no ev idence for acute appendicitis. There is no evidence for diverticulitis. There is no free fluid. The liver is enlarged at 21 cm length.. No intrahepatic lesions are identified. The gallbladder lorenzana s been removed. There is no definite biliary ductal dilation. Pancreas is normal in appearance. Sp klever is unremarkable.. There are no adrenal masses. The aorta is normal caliber. Kidneys are normal in appearance without hydronephrosis, mass or calculus. Ureters are of normal ca liber. Gonzalez catheters present within the collapsed urinary bladder. Bones are unchanged including of pelvic deformity and spina bifida defect/absence of posterior eleme nts of L2-L5. Limited evaluation lung bases demonstrates a right pleural thickening with multiple pleural calcific ations. Some bibasilar atelectasis. There is calcification in the inner space between the left six th and seventh ribs. IMPRESSION: 1. The tracheostomy catheter with the tip in the lateral aspect the right abdomen adjacent cecum. No associated fluid collection or free fluid. 2. No obstruction or ileus. Moderate stool throughout the colon. 3. Hepatomegaly. Status post cholecystectomy. 4. No obstructive uropathy. Gonzalez catheter within the urinary bladder. 5. Unchanged chronic 47 pelvis and lumbar spine with a prominent spine and bifida defect. RPTAT: HMVK .Angel Werner MD, MD Date Time Electronically viewed and signed by .Angel Werner MD, MD on 04/30/2016 01:33 .K/
[2016-04-30] MEDS: HYDROmorphONE 1 MG/ML SYG IV PRN ×7 (03:27→22:46)
[2016-04-30] MEDS: NS + KCL 20 MEQ 1,000 ML IV SCH ×2 (06:49→16:48)
[2016-04-30] MEDS: ONDANSETRON 4 MG INJ IV PRN ×2 (07:45→16:47)
[2016-04-30] MEDS: hydrALAzine 20 MG INJ IV PRN ×2 (07:46→18:39)
--- NOTE | 2016-04-30 14:18 | PN ---
Date/Time of Note Date/Time of Note DATE: 04/30/16 TIME: 14:11 Assessment/Plan VTE Prophylaxis VTE Prophylaxis Intervention: SCD's Lines/Catheters IV Catheter Type (from Nrsg): PICC Line Central line still needed: Yes Urinary Cath still in place: Yes Reason Cath still needed: other (indicate) Assessment/Plan Assessment/Plan 1. ETL TESTER shunt dysfunction, s/p left ETL TESTER shunt 04/26/2016, shunt was adjusted by neurosurgery on 04/29/2016, follow up with Dr. Bernal 2. History of spina bifida with quadriplegia 3. History of hydrocephalus status post V-P shunt with multiple revisions 4. Chronic pain syndrome. Subjective 24 Hr Interval Summary Free Text/Dictation feels more headache today Exam/Review of Systems Vital Signs Vitals Vital Signs Date Time Temp Pulse Resp B/P Pulse Ox O2 Delivery O2 Flow Rate FiO2 04/30/16 12:05 95 04/30/16 11:00 97.9 18 153/76 97 04/30/16 04:35 2.0 04/27/16 18:00 Room Air Intake and Output 04/29/16 04/29/16 04/30/16 15:00 23:00 07:00 Intake Total 800 ml Output Total 1200 ml Balance -400 ml Exam Constitutional: alert, oriented, well developed Head: normocephalic Eyes: EOMI, PERRL, nl conjunctiva, nl lids, nl sclera ENMT: mucosa pink and moist, nl external ears & nose, nl lips & teeth, nl nasal mucosa & septum Neck: non-tender, supple Respiratory: clear to auscultation, normal air movement, No congested cough, No crackles/rales, No diminished breath sounds, No intercostal retraction, No labored breathing, No respirations, No tactile fremitus, No wheezing Cardiovascular: nl pulses, regular rate and rhythm, No S3, No S4, No bruits, No diastolic murmur, No edema, No gallop, No irregular rhythm, No jugular venous distention (JVD), No murmurs/extra sounds, No rub, No systolic murmur Gastrointestinal: nl liver, spleen, non-tender, soft, No ascites, No bowel sounds, No distended, No firm, No hepatomegaly, No mass , No rebound or guarding, No splenomegaly, No surgical scars, No tender Musculoskeletal: nl extremities to inspection Extremities: normal pulses, No calf tenderness, No clubbing, No cyanosis, No edema, No palpable cord, No pitting pedal edema, No tenderness Neurological: nl mental status, nl speech Skin: nl turgor, rash or lesions Lymph: nl lymph nodes Results Result Diagram: 04/29/16 0537 04/29/1637 Medications Medications Current Medications Ondansetron HCl (Zofran Inj) 4 mg Q6H PRN IV NAUSEA AND/OR VOMITING Last administered on 04/30/16 07:45; Admin Dose 4 MG; Start 04/18/16 at 20:30 Docusate Sodium (Colace) 100 mg Q12H PRN PO CONSTIPATION; Start 04/19/16 at 10: 30 Bisacodyl (Dulcolax) 5 mg DAILY PRN PO CONSTIPATION; Start 04/19/16 at 10:30 Bisacodyl (Dulcolax Supp) 10 mg DAILY PRN [place] CONSTIPATION; Start 04/19/16 at 10 :30 Senna/Docusate Sodium (Senokot-S) 2 tab HS PO Last administered on 04/29/16 21 :50; Admin Dose 2 TAB; Start 04/20/16 at 21:00 Tramadol HCl 50 mg 50 mg Q6H PRN PO pain; Start 04/20/16 at 22:30 Potassium Chloride/Sodium Chloride (NS-KCl 20 Meq) 1,000 ml @ 100 mls/hr Q10H IV Last administered on 04/29/16 15:04; Admin Dose 100 MLS/HR; Start 04/26/16 at 12:49 Hydralazine HCl (Apresoline) 5 mg Q6H PRN IV sbp above 160 Last administered on 04/30/16 07:46; Admin Dose 5 MG; Start 04/26/16 at 15:00 Hydromorphone HCl (Dilaudid) 1 mg Q2 PRN IV PAIN Last administered on 10:19; Admin Dose 1 MG; Start 04/27/16 at 17:00 ZI ROTHMAN MD Apr 30, 2016 14:18
--- NOTE | 2016-04-30 15:04 | CONS ---
Date/Time of Note Date/Time of Note DATE: 04/30/16 TIME: 15:02 Assessment/Plan Assessment/Plan Chief Complaint/Hosp Course Very pleasant 26 y/o male with pmh: Spina Bifida, depression, chronic headaches with hydrocephalus. Pt had VPS placement as a child but most recently underwent multiple bilateral THRESHING DEPARTMENT SUPERVISOR (Abd/Pleural) shunt placements with Dr. Triplett starting 2008 and most recent left vps revision was performed at [facility] by Dr. Triplett as well. Pt presents with bifrontal HAs. Per Dr. Triplett's notes states possible non functioning left vps due to "scarring in the peritoneal cavity not allowing enough surface for CSF absorption area." Dr. Triplett / Dr. Castelan (partner) did not feel comfortable performing ventricular atrial shunt and transfer was then requested. pmh/psx: per hpi/chart meds: see med recon ros: per hpi/chart Problems: Additional Assessment/Plan impression right vps removal and left vps revision cont to have METZGER but CT brain shows improving ventric size plan cont VPS at 0.5 (max drainage) pumped VPS x [address] brain in am Consultation Date/Type/Reason Admit Date/Time Apr 18, 2016 at 18:55 Initial Consult Date 04/19/16 Type of Consultation: Neurosurgery 24 HR Interval Summary Free Text/Dictation S: cont to have METZGER CT brain completed Exam/Review of Systems Vital Signs Vitals Vital Signs Date Time Temp Pulse Resp B/P Pulse Ox O2 Delivery O2 Flow Rate FiO2 04/30/16 12:05 95 04/30/16 11:00 97.9 18 153/76 97 04/30/16 04:35 2.0 04/27/16 18:00 Room Air Intake and Output 04/29/16 04/29/16 04/30/16 15:00 23:00 07:00 Intake Total 800 ml Output Total 1200 ml Balance -400 ml Exam Neurological: other (MS: AAOX4 CN: 3mm bilat M: FC bilat UE, 0/5 LE ) Results Result Diagram: 04/29/16 0537 04/29/16 0537 Medications Medications Current Medications Ondansetron HCl (Zofran Inj) 4 mg Q6H PRN IV NAUSEA AND/OR VOMITING Last administered on 04/30/16t 07:45; Admin Dose 4 MG; Start 04/18/16 at 20:30 Docusate Sodium (Colace) 100 mg Q12H PRN PO CONSTIPATION; Start 04/19/16 at 10: 30 Bisacodyl (Dulcolax) 5 mg DAILY PRN PO CONSTIPATION; Start 04/19/16 at 10:30 Bisacodyl (Dulcolax Supp) 10 mg DAILY PRN [place] CONSTIPATION; Start 04/19/16 at 10 :30 Senna/Docusate Sodium (Senokot-S) 2 tab HS PO Last administered on 04/29/16 21 :50; Admin Dose 2 TAB; Start 04/20/16 at 21:00 Tramadol HCl 50 mg 50 mg Q6H PRN PO pain; Start 04/20/16 at 22:30 Potassium Chloride/Sodium Chloride (NS-KCl 20 Meq) 1,000 ml @ 100 mls/hr Q10H IV Last administered on 04/29/16 15:04; Admin Dose 100 MLS/HR; Start 04/26/16 at 12:49 Hydralazine HCl (Apresoline) 5 mg Q6H PRN IV sbp above 160 Last administered on 04/30/16 07:46; Admin Dose 5 MG; Start 04/26/16 at 15:00 Hydromorphone HCl (Dilaudid) 1 mg Q2 PRN IV PAIN Last administered on 14:27; Admin Dose 1 MG; Start 04/27/16 at 17:00 ALEX MOTA NP Apr 30, 2016 15:04
--- NOTE | 2016-04-30 18:58 | PN ---
DATE: SUBJECTIVE: No acute events overnight. The patient is lying comfortably in bed. He is in no distr ess. No fevers. No labs this morning. No nausea, vomiting, diarrhea. He has a Gonzalez catheter. H e is status post PLUMBING INSTALLER shunt revision. MICROBIOLOGY: The patient's urine culture on 04/26/2016 grew VRE and the repeated ones have been ne gative. ANTIMICROBIALS: He is currently off antibiotics. PHYSICAL EXAMINATION: GENERAL: This is a chronically ill-appearing, obese, young man who is in no distress. HEENT: Head atraumatic, normocephalic. Sclerae anicteric. Buccal mucosa dry. NECK: Supple. Trachea midline. CHEST: Rise symmetrical. Breath sounds diminished to bases. HEART: S1, S2. ABDOMEN: Soft. Bowel tones present. EXTREMITIES: Without cyanosis. Trace edema. ASSESSMENT: 1. Bacteriuria with urine culture grew vancomycin resistant enterococcus, but repeat cultures have been negative. 2. Hydrocephalus status post ventriculoperitoneal revision. 3. Morbid obesity. 4. History of spina bifida. 5. Multiple pressure sores. PLAN: The patient remains stable off antibiotics. No fevers. He is being seen by multiple consult ants. We will continue observing him and panculture p.r.n. Dictated By: PAT RODRIGUEZ AGENCY SERVICE REPRESENTATIVE for DIAN ROUSSEAU MD NI/NTS Conf#: [id number] DID#: [id number] CC: VELMA CAVANAUGH MD;*End*
[2016-04-30] MEDS: SENNA/DOCUSATE NA (8.6MG/50MG) TAB PO SCH (21:00)
[2016-05-01] VITALS (43 sets, daily range): BP systolic 127–188; BP diastolic 66–95; PULSE 61–141; RESP 11–22
[2016-05-01] MEDS: HYDROmorphONE 1 MG/ML SYG IV PRN ×5 (03:05→22:19)
[2016-05-01] MEDS: NS + KCL 20 MEQ 1,000 ML IV SCH ×3 (03:05→22:49)
[2016-05-01] MEDS ORDERED: CEFAZOLIN 1 GM INJ ONE (07:00)
[2016-05-01] MEDS ORDERED: LIDOCAINE 1% (MDV) 20 ML INJ SC ONE (10:00)
--- NOTE | 2016-05-01 11:59 | RADRPT ---
PROCEDURE: CT Brain without contrast. CLINICAL INDICATION: Headache. Hydrocephalus. TECHNIQUE: A CT of the brain without contrast was performed utilizing axial sections from the skul l base through the vertex. The patient was scanned without intravenous contrast enhancement. Sagitta l and coronal reformatted images were obtained using the data from the axial images. Total exam DLP is 792.64 mGy-cm. CTDIvol is 43.89 mGy. One or more of the following dose reduction techniques we re used: Automated exposure control, adjustment of the mA and/or kV according to patient size, use o f iterative reconstruction technique. COMPARISON: 04/29/2016. FINDINGS: As seen previously, there is a left posterior approach REAL ESTATE INSPECTOR shunt catheter in satisfactory position wi th the tip in the body of the right lateral ventricle. Stable hemorrhage is noted layering posterio rly in the occipital horns of the lateral ventricles. There is moderate enlargement of the lateral and third ventricles. The fourth ventricle is normal. The lateral ventricles measure 5.4 cm in tra nsverse dimension, slightly worse than seen previously where the measurement was 4.8 cm. The atrium of the right lateral ventricle measures 2.6 cm; prior was 2.2 cm. The atrium of the left lateral v entricle measures 2.4 cm; prior was 2.2 cm. The transverse dimension of the third ventricle is 1.8 cm.; prior was 1.4 cm. There is no intracranial space occupying lesion. There is no extra-axial fluid collection. There i s diffuse effacement of the sulci, similar to the prior study. Low-lying cerebellar tonsils are unchanged. There is no skull fracture or lytic lesion. There is a large cyst inferiorly in the left maxillary s inus measuring 2 point a by 1.7 cm, unchanged. IMPRESSION: 1. Hydrocephalus, worse than seen previously. 2. Left posterior REAL ESTATE INSPECTOR shunt catheter noted in satisfactory position. 3. Intraventricular hemorrhage, unchanged. 4. No other new abnormality. RPTAT: QQ .Avery Vizcarra MD, MD Date Time Electronically viewed and signed by .Avery Vizcarra MD, MD on 05/01/2016 11:59 .R/
--- NOTE | 2016-05-01 12:17 | CONS ---
Date/Time of Note Date/Time of Note DATE: 05/01/16 TIME: 12:09 Assessment/Plan Assessment/Plan Chief Complaint/Hosp Course Very pleasant 26 y/o male with pmh: Spina Bifida, depression, chronic headaches with hydrocephalus. Pt had VPS placement as a child but most recently underwent multiple bilateral COMPLIANCE PARALEGAL (Abd/Pleural) shunt placements with Dr. Triplett starting 2008 and most recent left vps revision was performed at [facility] by Dr. Triplett as well. Pt presents with bifrontal HAs. Per Dr. Triplett's notes states possible non functioning left vps due to "scarring in the peritoneal cavity not allowing enough surface for CSF absorption area." Dr. Triplett / Dr. Castelan (partner) did not feel comfortable performing ventricular atrial shunt and transfer was then requested. pmh/psx: per hpi/chart meds: see med recon ros: per hpi/chart Problems: Additional Assessment/Plan Upon arrival to examine patient, patient noticed to be very sleepy. at bedside and performed VPS tap and was able aspirate CSF. Patient was more awake after VPS tap. Plan: Dr. Bernal has contacted OR and has planned for Left VPS externalization with EVD placement. DISPO to ICU post-op Consultation Date/Type/Reason Admit Date/Time Apr 18, 2016 at 18:55 Initial Consult Date 04/19/16 Type of Consultation: Neurosurgery 24 HR Interval Summary Free Text/Dictation Patient evaluate by and very sleepy. Exam/Review of Systems Vital Signs Vitals Vital Signs Date Time Temp Pulse Resp B/P Pulse Ox O2 Delivery O2 Flow Rate FiO2 05/01/16 12:02 100.1 115 20 139/77 94 05/01/16 03:49 3.0 04/27/16 18:00 Room Air Intake and Output 04/30/16 04/30/16 05/01/16 15:00 23:00 07:00 Intake Total 750 ml 400 ml Output Total 1600 ml 1200 ml Balance -850 ml -800 ml Results Result Diagram: 04/29/16 0537 04/29/16 0537 Medications Medications Current Medications Ondansetron HCl (Zofran Inj) 4 mg Q6H PRN IV NAUSEA AND/OR VOMITING Last administered on 04/30/16t 16:47; Admin Dose 4 MG; Start 04/18/16 at 20:30 Docusate Sodium (Colace) 100 mg Q12H PRN PO CONSTIPATION; Start 04/19/16 at 10: 30 Bisacodyl (Dulcolax) 5 mg DAILY PRN PO CONSTIPATION; Start 04/19/16 at 10:30 Bisacodyl (Dulcolax Supp) 10 mg DAILY PRN [place] CONSTIPATION; Start 04/19/16 at 10 :30 Senna/Docusate Sodium (Senokot-S) 2 tab HS PO Last administered on 04/30/16 21 :00; Admin Dose 2 TAB; Start 04/20/16 at 21:00 Tramadol HCl 50 mg 50 mg Q6H PRN PO pain; Start 04/20/16 at 22:30 Potassium Chloride/Sodium Chloride (NS-KCl 20 Meq) 1,000 ml @ 100 mls/hr Q10H IV Last administered on 05/01/16 03:05; Admin Dose 100 MLS/HR; Start 04/26/16 at 12:49 Hydralazine HCl (Apresoline) 5 mg Q6H PRN IV sbp above 160 Last administered on 04/30/16 18:39; Admin Dose 5 MG; Start 04/26/16 at 15:00 Hydromorphone HCl (Dilaudid) 1 mg Q2 PRN IV PAIN Last administered on 05/01/16 03:05; Admin Dose 1 MG; Start 04/27/16 at 17:00 ALEX MOTA NP May 01, 2016 12:17
[2016-05-01] MEDS ORDERED: DEXAMETHASONE 4 MG/ML 1 ML INJ ONE (12:41)
[2016-05-01] MEDS ORDERED: ONDANSETRON 4 MG INJ ONE (12:41)
[2016-05-01] MEDS ORDERED: NEOSTIGMINE 3 MG/3 ML SYRINGE ONE (12:41)
[2016-05-01] MEDS ORDERED: PROPOFOL 20 ML ONE (12:41)
[2016-05-01] MEDS ORDERED: MIDAZOLAM 1 MG/ML 2 ML INJ ONE (12:41)
[2016-05-01] MEDS ORDERED: LIDOCAINE 100 MG SYRINGE ONE (12:41)
[2016-05-01] MEDS ORDERED: ROCURONIUM 50 MG INJ ONE (12:41)
[2016-05-01] MEDS ORDERED: GLYCOPYRROLATE 0.4 MG INJ ONE (12:41)
[2016-05-01] MEDS ORDERED: NEOMYC/POLYMYX/BACIT 30 GM OINT ONE (13:15)
[2016-05-01] MEDS ORDERED: CEFAZOLIN 1 GM INJ IV ONE (14:00)
--- NOTE | 2016-05-01 15:01 | RADRPT ---
PROCEDURE: XR Chest. CLINICAL INDICATION: Shortness of breath. TECHNIQUE: Single frontal view. COMPARISON: 04/12/2016. FINDINGS: The right arm PICC line has been removed. There is a catheter overlying the left side of neck and c hest consistent with CLERICAL RECEPTIONIST shunt catheter. There is interstitial disease bilaterally consistent with p ulmonary edema. The lungs are otherwise clear. The heart is enlarged. There is no pleural effusion. There is no pneumothorax. IMPRESSION: 1. Right arm PICC line removed. 2. CLERICAL RECEPTIONIST shunt catheter overlying left side of neck and chest. 3. Pulmonary edema. 4. Cardiomegaly. RPTAT: QQ .Avery Vizcarra MD, MD Date Time Electronically viewed and signed by .Avery Vizcarra MD, MD on 05/01/2016 15:01 .R/
--- NOTE | 2016-05-01 16:19 | PN ---
DATE: 05/01/2016 INFECTIOUS DISEASE PROGRESS NOTE SUBJECTIVE: Patient is status post rapid response event secondary to acute encephalopathy, hypotens ion taken to OR for possible PVC MONITOR shunt clotting. No labs this morning. PHYSICAL EXAMINATION: VITAL SIGNS: Temperature of 100.1 today, pulse 115, respirations 20, blood pressure 139/77, saturat ion 94. GENERAL: This is a morbidly obese, chronically ill-appearing young man who is in no distress. HEENT: Head atraumatic, normocephalic. Sclerae anicteric. Buccal mucosa dry. NECK: Obese. CHEST: Rise symmetrical. Breath sounds diminished. HEART: S1, S2. ABDOMEN: Soft, obese. Bowel tones present. EXTREMITIES: Bilateral edema. ASSESSMENT: 1. Sepsis with acute encephalopathy, possibly secondary clotted PVC MONITOR shunt. Rule out etiologies. 2. Morbid obesity. 3. Status post vancomycin-resistant enterococci urinary tract infection, possibly bacteriuria as re peat urine culture was negative. 4. Multiple chronic wounds. 5. Chronic pain syndrome. 6. Hydrocephalus, status post PVC MONITOR shunt revision. PLAN: We are going to start patient on broad spectrum antibiotics with vancomycin and meropenem, pa nculture him, continue present care and plan for neurosurgical intervention and after that transferr ing to ICU. Dictated By: PAT RODRIGUEZ LEARNING SUPPORT RESOURCE ROOM TEACHER for DIAN AVILA/BRADY Conf#: [id number] DID#: [id number]
--- NOTE | 2016-05-01 16:38 | RADRPT ---
PROCEDURE: Ultrasound guidance for placement of needle in right upper extremity vein. CLINICAL INDICATION: Venous access. TECHNIQUE: Limited sonography of the right upper extremity was performed. Ultrasound images were recorded and stored in the patient's medical record. COMPARISON: None. FINDINGS: The ultrasound images demonstrate a patent right upper extremity vein. The PICC line was inserted b y the PICC line nurse. IMPRESSION: 1. Ultrasound guidance for a needle placement in a right upper extremity vein. 2. The visualized right upper extremity vein is patent. RPTAT: QQ .Avery Vizcarra MD, MD Date Time Electronically viewed and signed by .Avery Vizcarra MD, MD on 05/01/2016 16:38 .R/
--- NOTE | 2016-05-01 16:44 | RADRPT ---
PROCEDURE: XR Chest. CLINICAL INDICATION: Check PICC line position. TECHNIQUE: Single frontal view. COMPARISON: Prior study done earlier the same day. FINDINGS: There is a right arm PICC line with the tip in the lower superior vena cava. Pulmonary edema is unc hanged. The heart is enlarged. There is no pleural effusion. There is no pneumothorax. IMPRESSION: 1. Satisfactory position of right arm PICC line. 2. Unchanged pulmonary edema. 3. Cardiomegaly. RPTAT: QQ .Avery Vizcarra MD, MD Date Time Electronically viewed and signed by .Avery Vizcarra MD, MD on 05/01/2016 16:44 .R/
[2016-05-01] MEDS ORDERED: SOD CHLORIDE 0.9% 100 ML ONE (17:14)
--- NOTE | 2016-05-01 17:19 | PN ---
Date/Time of Note Date/Time of Note DATE: 05/01/16 TIME: 17:17 Assessment/Plan VTE Prophylaxis VTE Prophylaxis Intervention: SCD's Lines/Catheters IV Catheter Type (from Nrsg): Peripheral IV Urinary Cath still in place: Yes Reason Cath still needed: other (indicate) Assessment/Plan Assessment/Plan 1. ROLLER PNEUMATIC shunt dysfunction, s/p left ROLLER PNEUMATIC shunt 04/26/2016, shunt was adjusted by neurosurgery on 04/29/2016, surgery on 05/01/2016, follow up with neurosurgery 2. History of spina bifida with quadriplegia 3. History of hydrocephalus status post V-P shunt with multiple revisions 4. Chronic pain syndrome. Subjective 24 Hr Interval Summary Free Text/Dictation back from surgery. no distress, alert Exam/Review of Systems Vital Signs Vitals Vital Signs Date Time Temp Pulse Resp B/P Pulse Ox O2 Delivery O2 Flow Rate FiO2 05/01/16 16:00 86 05/01/16 15:42 22 174/91 100 Nasal Cannula 2.0 05/01/16 14:28 98.4 Intake and Output 04/30/16 04/30/16 05/01/16 15:00 23:00 07:00 Intake Total 750 ml 400 ml Output Total 1600 ml 1200 ml Balance -850 ml -800 ml Exam Constitutional: alert, oriented, well developed Psych: nl mood/affect, no complaints Eyes: EOMI, PERRL, nl conjunctiva, nl lids, nl sclera ENMT: mucosa pink and moist, nl external ears & nose, nl lips & teeth, nl nasal mucosa & septum Neck: supple Respiratory: clear to auscultation, normal air movement, No congested cough, No crackles/rales, No diminished breath sounds, No intercostal retraction, No labored breathing, No respirations, No tactile fremitus, No wheezing Cardiovascular: nl pulses, regular rate and rhythm, No S3, No S4, No bruits, No diastolic murmur, No edema, No gallop, No irregular rhythm, No jugular venous distention (JVD), No murmurs/extra sounds, No rub, No systolic murmur Gastrointestinal: nl liver, spleen, non-tender, soft, No ascites, No bowel sounds, No distended, No firm, No hepatomegaly, No mass , No rebound or guarding, No splenomegaly, No surgical scars, No tender Musculoskeletal: nl extremities to inspection Extremities: normal pulses, No clubbing, No cyanosis, No edema, No palpable cord, No pitting pedal edema , No tenderness Neurological: WEBLOGIC ADMINISTRATOR II-XII intact, nl mental status, nl speech Skin: nl turgor, rash or lesions Lymph: nl lymph nodes Results Result Diagram: 04/29/16 0537 04/29/16 0537 Medications Medications Current Medications Ondansetron HCl (Zofran Inj) 4 mg Q6H PRN IV NAUSEA AND/OR VOMITING Last administered on 04/30/16 16:47; Admin Dose 4 MG; Start 04/18/16 at 20:30 Docusate Sodium (Colace) 100 mg Q12H PRN PO CONSTIPATION; Start 04/19/16 at 10: 30 Bisacodyl (Dulcolax) 5 mg DAILY PRN PO CONSTIPATION; Start 04/19/16 at 10:30 Bisacodyl (Dulcolax Supp) 10 mg DAILY PRN [place] CONSTIPATION; Start 04/19/16 at 10 :30 Senna/Docusate Sodium (Senokot-S) 2 tab HS PO Last administered on 04/30/16 21 :00; Admin Dose 2 TAB; Start 04/20/16 at 21:00 Tramadol HCl 50 mg 50 mg Q6H PRN PO pain; Start 04/20/16 at 22:30 Potassium Chloride/Sodium Chloride (NS-KCl 20 Meq) 1,000 ml @ 100 mls/hr Q10H IV Last administered on 05/01/16 03:05; Admin Dose 100 MLS/HR; Start 04/26/16 at 12:49 Hydralazine HCl (Apresoline) 5 mg Q6H PRN IV sbp above 160 Last administered on 04/30/16 18:39; Admin Dose 5 MG; Start 04/26/16 at 15:00 Hydromorphone HCl 1 mg 1 mg Q2 PRN IV PAIN Last administered on 05/01/16 15:42 ; Admin Dose 1 MG; Start 04/27/16 at 17:00 Cefazolin Sodium/ Dextrose 50 ml @ 100 mls/hr Q8 IVPB ; Start 05/01/16 at 14:00 Linezolid 300 ml @ 300 mls/hr Q12 IVPB ; Start 2/1/17 at 15:30 Meropenem (Merrem 1 Gm/100 ml (Pmx)) 100 ml @ 200 mls/hr Q12 IVPB ; Start at 16:00 IV Flush (NS 10 ml) 10 ml PRN PRN IV IV PROTOCOL; Start 05/01/16 at 16:30 ZI ROTHMAN MD May 01, 2016 17:19
[2016-05-01 18:02] LABS: HEMATOCRIT 34.7 % (42.0-52.0); HEMOGLOBIN 11.3 g/dl (14.0-18.0); MEAN CORPUSCULAR HEMOGLOBIN 27.8 pg (29.0-33.0); MEAN CORPUSCULAR HGB CONC 32.7 g/dl (32.0-37.0); MEAN CORPUSCULAR VOLUME 85.1 fl (82.0-101.0); MEAN PLATELET VOLUME 7.5 fl (7.4-10.4); PLATELET COUNT 410 10^3/UL (140-440); RED BLOOD COUNT 4.08 10^6/ul (4.70-6.10); RED CELL DISTRIBUTION WIDTH 16.2 % (11.5-14.5); UNCORRECTED WBC 16.2 10^3/ul (4.8-10.8); WHITE BLOOD COUNT 16.2 10^3/ul (4.8-10.8)
[2016-05-01 18:04] LABS: CONDITION 1; LH ANALYZER COMMENTS 1
[2016-05-01] MEDS: CEFAZOLIN 2 GM/50 ML (PMX) 50 ML IVPB SCH ×2 (18:06→21:26)
[2016-05-01] MEDS: LINEZOLID 600 MG/D5W (PMX) 300 ML IVPB SCH (18:06)
[2016-05-01] MEDS: MEROPENEM 1 GM/100 ML (PMX) 100 ML IVPB SCH (18:07)
[2016-05-01 18:16] LABS: INR 1.02; PROTIME 13.4 Sec (12.2-14.2)
[2016-05-01 19:09] LABS: LYMPHOCYTES # 2.1 10^3/ul (0.8-2.9); MONOCYTE # 0.2 10^3/ul (0.3-0.9); NEUTROPHIL # 13.9 10^3/ul (1.6-7.5)
[2016-05-01 19:10] LABS: ANISOCYTOSIS 1+; PLATELET ESTIMATE PLT APPEAR ADEQUATE
[2016-05-01] MEDS: SENNA/DOCUSATE NA (8.6MG/50MG) TAB PO SCH (21:25)
--- NOTE | 2016-05-01 23:01 | RADRPT ---
PROCEDURE: CT head, without contrast. CLINICAL INDICATION: Postoperative for placement of shunt. TECHNIQUE: Noncontrast CT examination of the head, with axial, sagittal and coronal reformatted im ages. Automated dose exposure control was employed. CTDI: 41.74 mGy and DLP: 720.23 mGy-cm. COMPARISON: Today, about 12 hours ago. FINDINGS: Previously seen ventriculomegaly is substantially resolved over interval with new left posterior par ietal occipital shunt. There is acute versus recent mild intraventricular hemorrhage. There is air seen in the bilateral non dependent lateral ventricles. Otherwise, there is no identified acute hemorrhage No mass effect. Stratton-white matter distinction is preserved without evident decreased attenuation t o suggest acute or recent intraparenchymal infarct. Remote lindsay hole in the posterior right parietal region Sinuses and osseous structures are otherwise unremarkable. IMPRESSION: 1. New left posterior shunt in place with substantially resolved ventriculomegaly. 2. Acute versus recent small regions of intraventricular hemorrhage. 3. Air in the anterior horns of the bilateral lateral ventricles. RPTAT: [facility]U Physician Dimitri Date Time Electronically viewed and signed by Physician Dimitri on 05/01/2016 23:01 RS/
[2016-05-02] VITALS (31 sets, daily range): BP systolic 107–147; BP diastolic 52–102; PULSE 56–92; RESP 11–19
[2016-05-02] MEDS: HYDROmorphONE 1 MG/ML SYG IV PRN ×11 (00:27→22:39)
[2016-05-02] MEDS: LINEZOLID 600 MG/D5W (PMX) 300 ML IVPB SCH ×3 (00:28→21:02)
[2016-05-02] MEDS: MEROPENEM 1 GM/100 ML (PMX) 100 ML IVPB SCH ×3 (00:28→21:02)
[2016-05-02 05:05] LABS: BASOPHILS % 0.3 % (0.0-2.0); EOSINOPHILS # 0.1 10^3/ul (0.0-0.5); EOSINOPHILS % 0.5 % (0.0-7.0); HEMATOCRIT 33.4 % (42.0-52.0); LYMPHOCYTES % 22.2 % (15.0-51.0); MEAN CORPUSCULAR HEMOGLOBIN 28.1 pg (29.0-33.0); MEAN CORPUSCULAR VOLUME 85.3 fl (82.0-101.0); MEAN PLATELET VOLUME 7.5 fl (7.4-10.4); MONOCYTE # 1.3 10^3/ul (0.3-0.9); MONOCYTES % 9.7 % (0.0-11.0); NEUTROPHIL # 9.2 10^3/ul (1.6-7.5); NEUTROPHILS % 67.3 % (39.0-77.0); PLATELET COUNT 408 10^3/UL (140-440); RED BLOOD COUNT 3.92 10^6/ul (4.70-6.10); RED CELL DISTRIBUTION WIDTH 15.9 % (11.5-14.5); UNCORRECTED WBC 13.7 10^3/ul (4.8-10.8); WHITE BLOOD COUNT 13.7 10^3/ul (4.8-10.8)
[2016-05-02] MEDS: CEFAZOLIN 2 GM/50 ML (PMX) 50 ML IVPB SCH (05:55)
[2016-05-02 06:07] LABS: POTASSIUM 3.7 mmol/L (3.5-5.1)
[2016-05-02 06:10] LABS: CREATININE 0.46 mg/dl (0.61-1.24)
[2016-05-02 06:11] LABS: CALCIUM 8.8 mg/dl (8.4-10.2)
[2016-05-02 06:43] LABS: CONDITION 1; LH ANALYZER COMMENTS 1
[2016-05-02] MEDS: NS + KCL 20 MEQ 1,000 ML IV SCH ×2 (07:32→18:44)
--- NOTE | 2016-05-02 11:12 | CONS ---
Date/Time of Note Date/Time of Note DATE: 05/02/16 TIME: 11:09 Assessment/Plan Assessment/Plan Chief Complaint/Hosp Course Very pleasant 26 y/o male with pmh: Spina Bifida, depression, chronic headaches with hydrocephalus. Pt had VPS placement as a child but most recently underwent multiple bilateral GROVE SUPERINTENDENT (Abd/Pleural) shunt placements with Dr. Triplett starting 2008 and most recent left vps revision was performed at [facility] by Dr. Triplett as well. Pt presents with bifrontal HAs. Per Dr. Triplett's notes states possible non functioning left vps due to "scarring in the peritoneal cavity not allowing enough surface for CSF absorption area." Dr. Triplett / Dr. Castelan (partner) did not feel comfortable performing ventricular atrial shunt and transfer was then requested. pmh/psx: per hpi/chart meds: see med recon ros: per hpi/chart Problems: Additional Assessment/Plan impression s/p left VPS externalization and placement of EVD ICP 0-2 EVD draining well plan cont supportive care ICU for now while EVD in place Plan for VPS sometime next week daily CSF hourly icp D/w Dr. Bernal Consultation Date/Type/Reason Admit Date/Time Apr 18, 2016 at 18:55 Initial Consult Date 04/19/16 Type of Consultation: Neurosurgery Reason for Consultation S: s/p left EVD placement with improved overall hydrocephalus ICP 0-2 More alert and awake Exam/Review of Systems Vital Signs Vitals Vital Signs Date Time Temp Pulse Resp B/P Pulse Ox O2 Delivery O2 Flow Rate FiO2 05/02/16 09:00 56 14 107/57 98 Nasal Cannula 2.0 05/02/16 08:00 97.9 05/02/16 05:13 28 Intake and Output 05/01/16 05/01/16 05/02/16 15:00 23:00 07:00 Intake Total 700 ml 1350 ml 1050 ml Output Total 15 ml 865 ml 101 ml Balance 685 ml 485 ml 949 ml Exam Neurological: other (MS: AAOX4 CN: PERRL M ; FC bilat UE 5/5 , 0/5 LE ) Results Result Diagram: 05/02/16 0400 05/02/16 0400 Results 24 hrs Laboratory Tests Test 05/01/16 17:20 05/02/16 04:00 Anisocytosis 1+ Blood Morphology Comment Blood Urea Nitrogen 11 10 Hematocrit 34.7 L 33.4 L Hemoglobin 11.3 L 11.0 L INR International Normalized Ratio 1.02 Lactic Acid Level 0.9 Lymphocytes # 2.1 3.0 H Lymphocytes % 13.0 L 22.2 Mean Corpuscular Hemoglobin 27.8 L 28.1 L Mean Corpuscular Hemoglobin Concent 32.7 33.0 Mean Corpuscular Volume 85.1 85.3 Mean Platelet Volume 7.5 7.5 Monocytes # 0.2 L 1.3 H Monocytes % 1.0 9.7 Neutrophils # 13.9 H 9.2 H Neutrophils % 86.0 H 67.3 Platelet Count 410 408 Platelet Estimate PLT APPEAR ADEQUATE Prothrombin Time 13.4 Prothrombin Time Ratio 1.0 Red Blood Count 4.08 L 3.92 L Red Cell Distribution Width 16.2 H 15.9 H Troponin I < 0.012 White Blood Count 16.2 #H 13.7 H Anion Gap 16 Basophils # 0.0 Basophils % 0.3 Calcium Level 8.8 Carbon Dioxide Level 30 Chloride Level 96 L Creatinine 0.46 L Eosinophils # 0.1 Eosinophils % 0.5 Glucose Level 95 Nucleated Red Blood Cells # 0.0 Nucleated Red Blood Cells % 0.0 Potassium Level 3.7 Sodium Level 138 Medications Medications Current Medications Ondansetron HCl (Zofran Inj) 4 mg Q6H PRN IV NAUSEA AND/OR VOMITING Last administered on 04/30/16 16:47; Admin Dose 4 MG; Start 04/18/16 at 20:30 Docusate Sodium (Colace) 100 mg Q12H PRN PO CONSTIPATION; Start 04/19/16 at 10: 30 Bisacodyl (Dulcolax) 5 mg DAILY PRN PO CONSTIPATION; Start 04/19/16 at 10:30 Bisacodyl (Dulcolax Supp) 10 mg DAILY PRN [place] CONSTIPATION; Start 04/19/16 at 10 :30 Senna/Docusate Sodium (Senokot-S) 2 tab HS PO Last administered on 05/01/16 21: 25; Admin Dose 2 TAB; Start 04/20/16 at 21:00 Tramadol HCl 50 mg 50 mg Q6H PRN PO pain; Start 04/20/16 at 22:30 Potassium Chloride/Sodium Chloride (NS-KCl 20 Meq) 1,000 ml @ 100 mls/hr Q10H IV Last administered on 05/02/16 07:32; Admin Dose 100 MLS/HR; Start 04/26/16 at 12:49 Hydralazine HCl (Apresoline) 5 mg Q6H PRN IV sbp above 160 Last administered on 04/30/16 18:39; Admin Dose 5 MG; Start 04/26/16 at 15:00 Hydromorphone HCl 1 mg 1 mg Q2 PRN IV PAIN Last administered on 05/02/16 09:56 ; Admin Dose 1 MG; Start 04/27/16 at 17:00 Cefazolin Sodium/ Dextrose 50 ml @ 100 mls/hr Q8 IVPB Last administered on 05/02 05:55; Admin Dose 100 MLS/HR; Start 05/01/16 at 14:00 Linezolid 300 ml @ 300 mls/hr Q12 IVPB Last administered on 05/02/16 08:03; Admin Dose 300 MLS/HR; Start 05/01/16 at 15:30 Meropenem (Merrem 1 Gm/100 ml (Pmx)) 100 ml @ 200 mls/hr Q12 IVPB Last administered on 05/02/16 08:03; Admin Dose 200 MLS/HR; Start 05/01/16 at 16:00 IV Flush (NS 10 ml) 10 ml PRN PRN IV IV PROTOCOL; Start 05/01/16 at 16:30 ALEX MOTA NP May 02, 2016 11:12
--- NOTE | 2016-05-02 14:54 | PN ---
Date/Time of Note Date/Time of Note DATE: 05/02/16 TIME: 14:52 Assessment/Plan VTE Prophylaxis VTE Prophylaxis Intervention: SCD's Lines/Catheters IV Catheter Type (from Nrsg): PICC Line Central line still needed: Yes Urinary Cath still in place: Yes Reason Cath still needed: other (indicate) Assessment/Plan Assessment/Plan 1. AUTO BRAKE MECHANIC shunt dysfunction, s/p left AUTO BRAKE MECHANIC shunt 04/26/2016, shunt was adjusted by neurosurgery on 04/29/2016, s/p left VPS externalization and placement of EVD on 05/01/2016, follow up with neurosurgery 2. History of spina bifida with quadriplegia 3. History of hydrocephalus status post V-P shunt with multiple revisions 4. Chronic pain syndrome. Subjective 24 Hr Interval Summary Free Text/Dictation headache Exam/Review of Systems Vital Signs Vitals Vital Signs Date Time Temp Pulse Resp B/P Pulse Ox O2 Delivery O2 Flow Rate FiO2 05/02/16 13:00 60 19 124/62 99 Nasal Cannula 2.0 05/02/16 12:00 98.7 05/02/16 05:13 28 Intake and Output 05/01/16 05/01/16 05/02/16 15:00 23:00 07:00 Intake Total 700 ml 1350 ml 1050 ml Output Total 15 ml 865 ml 101 ml Balance 685 ml 485 ml 949 ml Exam Constitutional: alert, oriented, well developed Psych: nl mood/affect, no complaints Head: other (left ventricular drainage) Eyes: EOMI, PERRL, nl conjunctiva, nl lids ENMT: nl external ears & nose, nl lips & teeth, nl nasal mucosa & septum Neck: non-tender, supple Respiratory: clear to auscultation, normal air movement, No congested cough, No crackles/rales, No diminished breath sounds, No intercostal retraction, No labored breathing, No respirations, No tactile fremitus, No wheezing Cardiovascular: nl pulses, regular rate and rhythm, No S3, No S4, No bruits, No diastolic murmur, No edema, No gallop, No irregular rhythm, No jugular venous distention (JVD), No murmurs/extra sounds, No rub, No systolic murmur Gastrointestinal: nl liver, spleen, non-tender, soft, No ascites, No bowel sounds, No distended, No firm, No hepatomegaly, No mass , No rebound or guarding, No splenomegaly, No surgical scars, No tender Musculoskeletal: nl extremities to inspection Extremities: normal pulses, No calf tenderness, No clubbing, No cyanosis, No edema, No palpable cord, No pitting pedal edema, No tenderness Neurological: AUTOMOTIVE WORKER II-XII intact, nl mental status, nl speech Skin: nl turgor, rash or lesions Lymph: nl lymph nodes Results Result Diagram: 05/02/16 0400 05/02/16 0400 Results 24 hrs Laboratory Tests Test 05/01/16 17:20 05/02/16 04:00 Anisocytosis 1+ Blood Morphology Comment Blood Urea Nitrogen 11 10 Hematocrit 34.7 L 33.4 L Hemoglobin 11.3 L 11.0 L INR International Normalized Ratio 1.02 Lactic Acid Level 0.9 Lymphocytes # 2.1 3.0 H Lymphocytes % 13.0 L 22.2 Mean Corpuscular Hemoglobin 27.8 L 28.1 L Mean Corpuscular Hemoglobin Concent 32.7 33.0 Mean Corpuscular Volume 85.1 85.3 Mean Platelet Volume 7.5 7.5 Monocytes # 0.2 L 1.3 H Monocytes % 1.0 9.7 Neutrophils # 13.9 H 9.2 H Neutrophils % 86.0 H 67.3 Platelet Count 410 408 Platelet Estimate PLT APPEAR ADEQUATE Prothrombin Time 13.4 Prothrombin Time Ratio 1.0 Red Blood Count 4.08 L 3.92 L Red Cell Distribution Width 16.2 H 15.9 H Troponin I < 0.012 White Blood Count 16.2 #H 13.7 H Anion Gap 16 Basophils # 0.0 Basophils % 0.3 Calcium Level 8.8 Carbon Dioxide Level 30 Chloride Level 96 L Creatinine 0.46 L Eosinophils # 0.1 Eosinophils % 0.5 Glucose Level 95 Nucleated Red Blood Cells # 0.0 Nucleated Red Blood Cells % 0.0 Potassium Level 3.7 Sodium Level 138 Medications Medications Current Medications Ondansetron HCl (Zofran Inj) 4 mg Q6H PRN IV NAUSEA AND/OR VOMITING Last administered on 04/30/16t 16:47; Admin Dose 4 MG; Start 04/18/16 at 20:30 Docusate Sodium (Colace) 100 mg Q12H PRN PO CONSTIPATION; Start 04/19/16 at 10: 30 Bisacodyl (Dulcolax) 5 mg DAILY PRN PO CONSTIPATION; Start 04/19/16 at 10:30 Bisacodyl (Dulcolax Supp) 10 mg DAILY PRN [place] CONSTIPATION; Start 04/19/16 at 10 :30 Senna/Docusate Sodium (Senokot-S) 2 tab HS PO Last administered on 05/01/16 21: 25; Admin Dose 2 TAB; Start 04/20/16 at 21:00 Tramadol HCl 50 mg 50 mg Q6H PRN PO pain; Start 04/20/16 at 22:30 Potassium Chloride/Sodium Chloride (NS-KCl 20 Meq) 1,000 ml @ 100 mls/hr Q10H IV Last administered on 05/02/16 07:32; Admin Dose 100 MLS/HR; Start 04/26/16 at 12:49 Hydralazine HCl (Apresoline) 5 mg Q6H PRN IV sbp above 160 Last administered on 04/30/16 18:39; Admin Dose 5 MG; Start 04/26/16 at 15:00 Hydromorphone HCl 1 mg 1 mg Q2 PRN IV PAIN Last administered on 05/02/16 13:47 ; Admin Dose 1 MG; Start 04/27/16 at 17:00 Linezolid 300 ml @ 300 mls/hr Q12 IVPB Last administered on 05/02/16 08:03; Admin Dose 300 MLS/HR; Start 05/01/16 at 15:30 Meropenem (Merrem 1 Gm/100 ml (Pmx)) 100 ml @ 200 mls/hr Q12 IVPB Last administered on 05/02/16 08:03; Admin Dose 200 MLS/HR; Start 05/01/16 at 16:00 IV Flush (NS 10 ml) 10 ml PRN PRN IV IV PROTOCOL; Start 05/01/16 at 16:30 ZI ROTHMAN MD May 02, 2016 14:54
--- NOTE | 2016-05-02 16:57 | PN ---
DATE: 05/02/2016 SUBJECTIVE: No acute changes. The patient is lying comfortably in bed. He is arousable, complains of headache in no distress. INDWELLINGS: The patient had ventriculostomy and Gonzalez also PICC line. OBJECTIVE VITAL SIGNS: Temperature 98.7, pulse 60, respirations 19, blood pressure 124/62, saturation 99 on 2 liters. T-max 100.1 yesterday. WBC today 13.7, H and H 11 and 33.4, platelets 408. No shift. BU N 10, creatinine 0.46. MICROBIOLOGY: Cultures repeated from yesterday pending. ANTIMICROBIALS: The patient is on: 1. Zyvox. 2. Merrem. PHYSICAL EXAMINATION: GENERAL: Obese, chronically ill-appearing young man who is in no distress. HEENT: Head atraumatic, normocephalic. Sclerae anicteric. Buccal mucosa dry. NECK: Obese. CHEST: Rise symmetrical. Breath sounds diminished. HEART: S1, S2. ABDOMEN: Soft, bowel sounds present. EXTREMITIES: Without cyanosis. Bilateral trace edema. ASSESSMENT: 1. Sepsis, pending cultures. The patient was started on broad spectrum antibiotics. 2. Hydrocephalus with clotted ventriculoperitoneal shunt, status post left ventriculoperitoneal jamey nt externalization and placement of ventriculostomy on 05/01/2016. 3. Status post vancomycin-resistant enterococci urinary tract infection. 4. Morbid obesity. 5. History of spina bifida. PLAN: The patient remains stable. Cultures are pending. He is being followed by neurosurgery and other consultants. Continue present care. Dictated By: PAT RODRIGUEZ FOUNDATION ENGINEER for DIAN AVILA/BRADY Conf#: [id number] DID#: [id number]
[2016-05-02] MEDS: SENNA/DOCUSATE NA (8.6MG/50MG) TAB PO SCH (21:03)
[2016-05-02 23:22] LABS: # OF CELLS COUNTED 100
[2016-05-03] VITALS (24 sets, daily range): BP systolic 107–157; BP diastolic 56–85; PULSE 59–98; RESP 11–24
[2016-05-03] LABS: GLUCOSE,CSF 51 mg/dl (50-80)
[2016-05-03 00:15] LABS: CSF COLOR XANTHOCHROMIC
[2016-05-03 00:25] LABS: CSF#TUBE COUNT TUBE#4; CSF#TUBES REC'D 4
[2016-05-03 00:31] LABS: %CREANATED RBC CSF 2 %
[2016-05-03 00:33] LABS: CSF BASOPHIL 0 %; CSF EOSINOPHIL 0 %
[2016-05-03] MEDS: HYDROmorphONE 1 MG/ML SYG IV PRN ×12 (00:57→22:50)
[2016-05-03] MEDS: NS + KCL 20 MEQ 1,000 ML IV SCH ×2 (04:39→16:48)
[2016-05-03 06:06] LABS: CREATININE 0.46 mg/dl (0.61-1.24)
[2016-05-03 06:07] LABS: CALCIUM 8.3 mg/dl (8.4-10.2)
[2016-05-03 07:44] LABS: %CREANATED RBC CSF 5 %; CSF COLOR RED; CSF VOLUME 11.5 ml; CSF#TUBE COUNT TUBE#4; CSF#TUBES REC'D 4
[2016-05-03 07:47] LABS: # OF CELLS COUNTED 316
[2016-05-03 08:06] LABS: GLUCOSE,CSF 41 mg/dl (50-80)
[2016-05-03] MEDS: LINEZOLID 600 MG/D5W (PMX) 300 ML IVPB SCH ×2 (08:57→21:55)
[2016-05-03] MEDS: MEROPENEM 1 GM/100 ML (PMX) 100 ML IVPB SCH ×2 (08:57→20:42)
[2016-05-03] MEDS ORDERED: traMADol 50 MG TAB PO PRN (11:30)
--- NOTE | 2016-05-03 15:13 | CONS ---
Date/Time of Note Date/Time of Note DATE: 05/03/16 TIME: 15:09 Assessment/Plan Assessment/Plan Chief Complaint/Hosp Course Very pleasant 26 y/o male with pmh: Spina Bifida, depression, chronic headaches with hydrocephalus. Pt had VPS placement as a child but most recently underwent multiple bilateral MONOTYPE MECHANIC (Abd/Pleural) shunt placements with Dr. Triplett starting 2008 and most recent left vps revision was performed at [facility] by Dr. Triplett as well. Pt presents with bifrontal HAs. Per Dr. Triplett's notes states possible non functioning left vps due to "scarring in the peritoneal cavity not allowing enough surface for CSF absorption area." Dr. Triplett / Dr. Castelan (partner) did not feel comfortable performing ventricular atrial shunt and transfer was then requested. pmh/psx: per hpi/chart meds: see med recon ros: per hpi/chart Problems: Additional Assessment/Plan left vps malfunction s/p left externalization with placement of EVD. ICP stable HAs improving plan cont supportive care ICU obs for now plan for Left VPS placement early next week. Consultation Date/Type/Reason Admit Date/Time Apr 18, 2016 at 18:55 Initial Consult Date 04/19/16 Type of Consultation: Neurosurgery Reason for Consultation S: icp 0-2 EVD: draining well Exam/Review of Systems Vital Signs Vitals Vital Signs Date Time Temp Pulse Resp B/P Pulse Ox O2 Delivery O2 Flow Rate FiO2 05/03/16 13:00 88 18 122/63 98 Nasal Cannula 05/03/16 12:00 98.0 05/03/16 08:00 2.0 05/02/16 05:13 28 Intake and Output 05/02/16 05/02/16 05/03/16 15:00 23:00 07:00 Intake Total 950 ml 900 ml 500 ml Output Total 61 ml 655 ml 676 ml Balance 889 ml 245 ml -176 ml Exam Neurological: other (MS: AAOX4 with fluent speech CN: PERRL M: bilat UE FC ) Results Result Diagram: 05/02/16 0400 05/03/16 0440 Results 24 hrs Laboratory Tests Test 05/02/16 22:10 05/03/16 04:40 05/03/16 06:30 CSF Appearance CLEAR BLOODY CSF Basophils % 0 CSF Cell Count Tube # TUBE#4 TUBE#4 CSF Color XANTHOCHROMIC RED CSF Crenated Cells 2 5 CSF Eosinophils % 0 CSF Glucose 51 41 L CSF Lymphocytes % 60 27 CSF Monocytes % 0 3 CSF Neutrophils % 40 70 CSF Other Cells % 0 CSF RBC 1748 H 18745 H CSF Total Cells Counted 100 316 CSF Total Protein 138 H 268 H CSF Tubes Submitted 4 4 CSF Volume 12.0 11.5 CSF WBC 8 316 *H Anion Gap 13 Blood Urea Nitrogen 14 Calcium Level 8.3 L Carbon Dioxide Level 29 Chloride Level 98 Creatinine 0.46 L Glucose Level 91 Potassium Level 4.0 Sodium Level 136 Medications Medications Current Medications Ondansetron HCl (Zofran Inj) 4 mg Q6H PRN IV NAUSEA AND/OR VOMITING Last administered on 04/30/16 16:47; Admin Dose 4 MG; Start 04/18/16 at 20:30 Docusate Sodium (Colace) 100 mg Q12H PRN PO CONSTIPATION; Start 04/19/16 at 10: 30 Bisacodyl (Dulcolax) 5 mg DAILY PRN PO CONSTIPATION; Start 04/19/16 at 10:30 Bisacodyl (Dulcolax Supp) 10 mg DAILY PRN [place] CONSTIPATION; Start 04/19/16 at 10 :30 Senna/Docusate Sodium 2 tab 2 tab HS PO Last administered on 05/02/16 21:03; Admin Dose 2 TAB; Start 04/20/16 at 21:00 Potassium Chloride/Sodium Chloride (NS-KCl 20 Meq) 1,000 ml @ 100 mls/hr Q10H IV Last administered on 05/03/16 04:39; Admin Dose 100 MLS/HR; Start 04/26/16 at 12:49 Hydralazine HCl (Apresoline) 5 mg Q6H PRN IV sbp above 160 Last administered on 04/30/16 18:39; Admin Dose 5 MG; Start 04/26/16 at 15:00 Hydromorphone HCl 1 mg 1 mg Q2 PRN IV PAIN Last administered on 05/03/16 15:02 ; Admin Dose 1 MG; Start 04/27/16 at 17:00 Linezolid 300 ml @ 300 mls/hr Q12 IVPB Last administered on 05/03/16 08:57; Admin Dose 300 MLS/HR; Start 05/01/16 at 15:30 Meropenem (Merrem 1 Gm/100 ml (Pmx)) 100 ml @ 200 mls/hr Q12 IVPB Last administered on 05/03/16 08:57; Admin Dose 200 MLS/HR; Start 05/01/16 at 16:00 IV Flush (NS 10 ml) 10 ml PRN PRN IV IV PROTOCOL; Start 05/01/16 at 16:30 Tramadol HCl (Ultram) 50 mg Q4H PRN PO PAIN LEVEL 4-7; Start 05/03/16 at 11:30 ALEX MOTA NP May 03, 2016 15:13
--- NOTE | 2016-05-03 16:17 | PN ---
DATE: 05/03/2016 SUBJECTIVE: Patient is more alert today. Looks comfortable. Lying comfortably in bed. Denies [place] n, discomfort. No fevers. VITAL SIGNS: Temperature 98, pulse 88, respirations 18, blood pressure 122/63, saturation 98 on divina al cannula. No CBC today. BUN 14, creatinine 0.46. MICROBIOLOGY: Repeat cultures have been negative so far. INDWELLINGS: Gonzalez, ventriculostomy and PICC line. ANTIMICROBIALS: 1. Zyvox. 2. Merrem. PHYSICAL EXAMINATION: GENERAL: Morbidly obese, young man who is alert, in no distress. HEENT: Head atraumatic, normocephalic. Sclerae anicteric. Buccal mucosa pink. NECK: Obese. CHEST: Rise symmetrical. Breath sounds clear, diminished to bases. HEART: S1, S2. ABDOMEN: Soft, bowel sounds present. EXTREMITIES: With trace edema. ASSESSMENT: 1. Sepsis, resolving, possibly aspiration event. So far blood and urine cultures have been negati ve. 2. Status post urinary tract infection. 3. Resolving encephalopathy. 4. Hydrocephalus, status post MERGERS AND ACQUISITIONS MANAGER shunt revision with externalization and placement of ventriculosto my on 05/01/2016. 5. Status post vancomycin-resistant enterococcus urinary tract infection. 6. Multiple pressure sores. 7. Morbid obesity. 8. Spina bifida with severe decompensated state. PLAN: The patient is doing better today. Cultures are pending, but preliminary negative. Continue present care, antibiotics. Dictated By: PAT RODRIGUEZ ALLERGIST/PEDIATRIC PULMONOLOGIST for DIAN AVILA/BRADY Conf#: [id number] DID#: [id number]
--- NOTE | 2016-05-03 16:54 | PN ---
Date/Time of Note Date/Time of Note DATE: 05/03/16 TIME: 16:53 Assessment/Plan VTE Prophylaxis VTE Prophylaxis Intervention: SCD's Lines/Catheters IV Catheter Type (from Nrsg): PICC Line Central line still needed: Yes Urinary Cath still in place: Yes Reason Cath still needed: other (indicate) Assessment/Plan Assessment/Plan 1. BANQUET CAPTAIN shunt dysfunction, s/p left BANQUET CAPTAIN shunt 04/26/2016, shunt was adjusted by neurosurgery on 04/29/2016, s/p left VPS externalization and placement of EVD on 05/01/2016, plan for left VPS next week 2. History of spina bifida with quadriplegia 3. History of hydrocephalus status post V-P shunt with multiple revisions 4. Chronic pain syndrome. Subjective 24 Hr Interval Summary Free Text/Dictation some what less headache Exam/Review of Systems Vital Signs Vitals Vital Signs Date Time Temp Pulse Resp B/P Pulse Ox O2 Delivery O2 Flow Rate FiO2 05/03/16 16:40 2.0 05/03/16 16:00 98.3 74 20 139/73 100 Nasal Cannula 05/02/16 05:13 28 Intake and Output 05/02/16 05/02/16 05/03/16 15:00 23:00 07:00 Intake Total 950 ml 900 ml 500 ml Output Total 61 ml 655 ml 676 ml Balance 889 ml 245 ml -176 ml Exam Constitutional: alert, oriented, well developed Head: other (left drainage) Eyes: EOMI, PERRL, nl conjunctiva ENMT: nl external ears & nose, nl lips & teeth, nl nasal mucosa & septum Neck: non-tender, supple Respiratory: clear to auscultation, normal air movement, No congested cough, No crackles/rales, No diminished breath sounds, No intercostal retraction, No labored breathing, No other, No respirations, No tactile fremitus, No wheezing Cardiovascular: nl pulses, regular rate and rhythm, No S3, No S4, No bruits, No diastolic murmur, No edema, No gallop, No irregular rhythm, No jugular venous distention (JVD), No murmurs/extra sounds, No other, No rub, No systolic murmur Gastrointestinal: nl liver, spleen, non-tender, soft, No ascites, No bowel sounds, No distended, No firm, No hepatomegaly, No mass , No other, No rebound or guarding, No splenomegaly, No surgical scars, No tender Musculoskeletal: nl extremities to inspection Extremities: normal pulses, No calf tenderness, No clubbing, No cyanosis, No edema, No other, No palpable cord, No pitting pedal edema, No tenderness Neurological: GARMENT SEWER HAND II-XII intact, nl mental status, nl speech, nl strength Skin: nl turgor Lymph: nl lymph nodes Results Result Diagram: 05/02/16 0400 05/03/16 0440 Results 24 hrs Laboratory Tests Test 05/02/16 22:10 05/03/16 04:40 05/03/16 06:30 CSF Appearance CLEAR BLOODY CSF Basophils % 0 CSF Cell Count Tube # TUBE#4 TUBE#4 CSF Color XANTHOCHROMIC RED CSF Crenated Cells 2 5 CSF Eosinophils % 0 CSF Glucose 51 41 L CSF Lymphocytes % 60 27 CSF Monocytes % 0 3 CSF Neutrophils % 40 70 CSF Other Cells % 0 CSF RBC 1748 H 05883 H CSF Total Cells Counted 100 316 CSF Total Protein 138 H 268 H CSF Tubes Submitted 4 4 CSF Volume 12.0 11.5 CSF WBC 8 316 *H Anion Gap 13 Blood Urea Nitrogen 14 Calcium Level 8.3 L Carbon Dioxide Level 29 Chloride Level 98 Creatinine 0.46 L Glucose Level 91 Potassium Level 4.0 Sodium Level 136 Medications Medications Current Medications Ondansetron HCl (Zofran Inj) 4 mg Q6H PRN IV NAUSEA AND/OR VOMITING Last administered on 04/30/16 16:47; Admin Dose 4 MG; Start 04/18/16 at 20:30 Docusate Sodium (Colace) 100 mg Q12H PRN PO CONSTIPATION; Start 04/19/16 at 10: 30 Bisacodyl (Dulcolax) 5 mg DAILY PRN PO CONSTIPATION; Start 04/19/16 at 10:30 Bisacodyl (Dulcolax Supp) 10 mg DAILY PRN [place] CONSTIPATION; Start 04/19/16 at 10 :30 Senna/Docusate Sodium 2 tab 2 tab HS PO Last administered on 05/02/16 21:03; Admin Dose 2 TAB; Start 04/20/16 at 21:00 Potassium Chloride/Sodium Chloride (NS-KCl 20 Meq) 1,000 ml @ 100 mls/hr Q10H IV Last administered on 05/03/16 16:48; Admin Dose 100 MLS/HR; Start 04/26/16 at 12:49 Hydralazine HCl (Apresoline) 5 mg Q6H PRN IV sbp above 160 Last administered on 04/30/16 18:39; Admin Dose 5 MG; Start 04/26/16 at 15:00 Hydromorphone HCl 1 mg 1 mg Q2 PRN IV PAIN Last administered on 05/03/16 16:48 ; Admin Dose 1 MG; Start 04/27/16 at 17:00 Linezolid 300 ml @ 300 mls/hr Q12 IVPB Last administered on 05/03/16 08:57; Admin Dose 300 MLS/HR; Start 05/01/16 at 15:30 Meropenem (Merrem 1 Gm/100 ml (Pmx)) 100 ml @ 200 mls/hr Q12 IVPB Last administered on 05/03/16 08:57; Admin Dose 200 MLS/HR; Start 05/01/16 at 16:00 IV Flush (NS 10 ml) 10 ml PRN PRN IV IV PROTOCOL; Start 05/01/16 at 16:30 Tramadol HCl (Ultram) 50 mg Q4H PRN PO PAIN LEVEL 4-7; Start 05/03/16 at 11:30 ZI ROTHMAN MD May 03, 2016 16:54
[2016-05-03] MEDS: SENNA/DOCUSATE NA (8.6MG/50MG) TAB PO SCH (20:43)
[2016-05-04] VITALS (23 sets, daily range): BP systolic 115–161; BP diastolic 64–99; PULSE 61–91; RESP 8–22
[2016-05-04] MEDS: HYDROmorphONE 1 MG/ML SYG IV PRN ×12 (00:42→23:14)
[2016-05-04] MEDS: NS + KCL 20 MEQ 1,000 ML IV SCH ×4 (04:48→20:49)
[2016-05-04 06:09] LABS: BASOPHILS % 0.2 % (0.0-2.0); HEMOGLOBIN 10.1 g/dl (14.0-18.0); LYMPHOCYTES # 3.4 10^3/ul (0.8-2.9); LYMPHOCYTES % 34.1 % (15.0-51.0); MEAN CORPUSCULAR HGB CONC 30.6 g/dl (32.0-37.0); MEAN CORPUSCULAR VOLUME 88.2 fl (82.0-101.0); MEAN PLATELET VOLUME 9.2 fl (7.4-10.4); MONOCYTES % 9.6 % (0.0-11.0); NEUTROPHIL # 5.1 10^3/ul (1.6-7.5); NEUTROPHILS % 50.7 % (39.0-77.0); PLATELET COUNT 391 10^3/UL (140-440); RED BLOOD COUNT 3.74 10^6/ul (4.70-6.10); RED CELL DISTRIBUTION WIDTH 14.5 % (11.5-14.5)
[2016-05-04 06:10] LABS: EOSINOPHILS # 0.5 10^3/ul (0.0-0.5)
[2016-05-04 07:12] LABS: POTASSIUM 4.6 mmol/L (3.5-5.1)
[2016-05-04 07:15] LABS: CREATININE 0.41 mg/dl (0.61-1.24)
[2016-05-04 07:16] LABS: CALCIUM 8.5 mg/dl (8.4-10.2)
[2016-05-04] MEDS: MEROPENEM 1 GM/100 ML (PMX) 100 ML IVPB SCH ×2 (08:24→21:21)
[2016-05-04] MEDS: LINEZOLID 600 MG/D5W (PMX) 300 ML IVPB SCH ×2 (08:24→21:20)
--- NOTE | 2016-05-04 09:07 | PN ---
Date/Time of Note Date/Time of Note DATE: 05/04/16 TIME: 09:03 Assessment/Plan VTE Prophylaxis VTE Prophylaxis Intervention: other Lines/Catheters [facility] P[facility] Line Central line still needed: Yes Urinary Cath still in place: Yes Reason Cath still needed: pres ulcer contaminated by urine Assessment/Plan Problems: (1) S/P BIOFUELS PRODUCTION MANAGER shunt Status: Acute Comment: He had the shunt revised on April 26, 2016. There have been some fine-tuning issues with this new device and he is scheduled for reevaluation early this week in the operating room (2) Wound of right ankle Status: Acute Comment: Actually has wounds on both ankles and arrived at our facility with these. 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 Careful skin care (5) Morbid obesity with BMI of 40.0-44.9, adult Status: Chronic Comment: Noted I believe we can do with a calorie restriction Subjective 24 Hr Interval Summary Free Text/Dictation Pleasant 26-year-old gentleman with a history of spina bifida in the high level since childhood. He has chronic quadriplegia as documented. At this time reports he is doing okay except he still has his headache. Constitutional: no complaints (Denies fever chills or sweats) Respiratory: no complaints (Denies shortness of breath) Cardiovascular: no complaints (Denies chest pain or palpitations) Gastrointestinal: no complaints (Denies nausea or vomiting) Skin: no complaints (He reports the best of his knowledge no new lesions) Exam/Review of Systems Vital Signs Vitals Vital Signs Date Time Temp Pulse Resp B/P Pulse Ox O2 Delivery O2 Flow Rate FiO2 05/04/16 07:49 Nasal Cannula 1.0 05/04/16 07:00 98.8 76 15 146/73 96 05/02/16 05:13 28 Intake and Output 05/03/16 05/03/16 05/04/16 15:00 23:00 07:00 Intake Total 250 ml 1100 ml 650 ml Output Total 1054 ml 874 ml 738 ml Balance -804 ml 226 ml -88 ml Exam Constitutional: alert, oriented Respiratory: clear to auscultation, normal air movement Cardiovascular: nl pulses, regular rate and rhythm Extremities: other (He has bilateral wounds on the heels both right and left- sided.) Results Result Diagram: 05/04/168 05/04/168 Results 24 hrs Laboratory Tests Test 05/04/16 04:48 Anion Gap 15 Basophils # 0.0 Basophils % 0.2 Blood Urea Nitrogen 13 Calcium Level 8.5 Carbon Dioxide Level 28 Chloride Level 97 Creatinine 0.41 L Eosinophils # 0.5 Eosinophils % 5.0 Glucose Level 82 Hematocrit 33.0 L Hemoglobin 10.1 L Lymphocytes # 3.4 H Lymphocytes % 34.1 Mean Corpuscular Hemoglobin 27.0 L Mean Corpuscular Hemoglobin Concent 30.6 L Mean Corpuscular Volume 88.2 Mean Platelet Volume 9.2 # Monocytes # 1.0 H Monocytes % 9.6 Neutrophils # 5.1 Neutrophils % 50.7 Nucleated Red Blood Cells # 0.0 Nucleated Red Blood Cells % 0.0 Platelet Count 391 Potassium Level 4.6 Red Blood Count 3.74 L Red Cell Distribution Width 14.5 Sodium Level 135 White Blood Count 10.0 # Medications Medications Current Medications Ondansetron HCl (Zofran Inj) 4 mg Q6H PRN IV NAUSEA AND/OR VOMITING Last administered on 04/30/16 16:47; Admin Dose 4 MG; Start 04/18/16 at 20:30 Docusate Sodium (Colace) 100 mg Q12H PRN PO CONSTIPATION; Start 04/19/16 at 10: 30 Bisacodyl (Dulcolax) 5 mg DAILY PRN PO CONSTIPATION; Start 04/19/16 at 10:30 Bisacodyl (Dulcolax Supp) 10 mg DAILY PRN [place] CONSTIPATION; Start 04/19/16 at 10 :30 Senna/Docusate Sodium 2 tab 2 tab HS PO Last administered on 05/03/16 20:43; Admin Dose 2 TAB; Start 04/20/16 at 21:00 Potassium Chloride/Sodium Chloride (NS-KCl 20 Meq) 1,000 ml @ 100 mls/hr Q10H IV Last administered on 05/04/16 04:48; Admin Dose 100 MLS/HR; Start 04/26/16 at 12:49 Hydralazine HCl (Apresoline) 5 mg Q6H PRN IV sbp above 160 Last administered on 04/30/16 18:39; Admin Dose 5 MG; Start 04/26/16 at 15:00 Hydromorphone HCl 1 mg 1 mg Q2 PRN IV PAIN Last administered on 05/04/16 08:48 ; Admin Dose 1 MG; Start 04/27/16 at 17:00 Linezolid 300 ml @ 300 mls/hr Q12 IVPB Last administered on 05/04/16 08:24; Admin Dose 300 MLS/HR; Start 05/01/16 at 15:30 Meropenem (Merrem 1 Gm/100 ml (Pmx)) 100 ml @ 200 mls/hr Q12 IVPB Last administered on 05/04/16 08:24; Admin Dose 200 MLS/HR; Start 05/01/16 at 16:00 IV Flush (NS 10 ml) 10 ml PRN PRN IV IV PROTOCOL; Start 05/01/16 at 16:30 Tramadol HCl (Ultram) 50 mg Q4H PRN PO PAIN LEVEL 4-7 Last administered on 17:49; Admin Dose 50 MG; Start 05/03/16 at 11:30 ELIZABETH MEEKS MD May 04, 2016 09:07
--- NOTE | 2016-05-04 18:38 | CONS ---
Date/Time of Note Date/Time of Note DATE: 05/04/16 TIME: 18:37 Assessment/Plan Assessment/Plan Chief Complaint/Hosp Course SUBJECTIVE: Patient is alert. Looks comfortable. Denies pain, discomfort. No fevers. INDWELLINGS: Gonzalez, ventriculostomy and PICC line. ANTIMICROBIALS: 1. Zyvox. 2. Merrem. PHYSICAL EXAMINATION: GENERAL: Morbidly obese, young man who is alert, in no distress. HEENT: Head atraumatic, normocephalic. Sclerae anicteric. Buccal mucosa pink. NECK: Obese. CHEST: Rise symmetrical. Breath sounds clear, diminished to bases. HEART: S1, S2. ABDOMEN: Soft, bowel sounds present. EXTREMITIES: With trace edema. ASSESSMENT: 1. Sepsis, resolving, possibly aspiration event. So far blood and urine cultures have been negative. 2. Status post urinary tract infection. 3. Resolving encephalopathy. 4. Hydrocephalus, status post BIOCHEMISTRY TECHNICIAN shunt revision with externalization and placement of ventriculostomy on 05/01/2016. 5. Status post vancomycin-resistant enterococcus urinary tract infection. 6. Multiple pressure sores. 7. Morbid obesity. 8. Spina bifida with severe decompensated state. PLAN: The patient is doing better, WBC decreasing. Continue present care, antibiotics. NS rec-s DW staff Problems: Consultation Date/Type/Reason Admit Date/Time Apr 18, 2016 at 18:55 Initial Consult Date 04/19/16 Type of Consultation: ID [id number] HR Interval Summary Constitutional: no complaints Exam/Review of Systems Vital Signs Vitals Vital Signs Date Time Temp Pulse Resp B/P Pulse Ox O2 Delivery O2 Flow Rate FiO2 05/04/16 18:00 79 13 156/82 97 Nasal Cannula 1.0 05/04/16 16:00 98.8 05/02/16 05:13 28 Intake and Output 05/03/16 05/03/16 05/04/16 15:00 23:00 07:00 Intake Total 250 ml 1100 ml 750 ml Output Total 1054 ml 874 ml 750 ml Balance -804 ml 226 ml 0 ml Results Result Diagram: 05/04/16 0448 05/04/16 0448 Results 24 hrs Laboratory Tests Test 05/04/16 04:48 Anion Gap 15 Basophils # 0.0 Basophils % 0.2 Blood Urea Nitrogen 13 Calcium Level 8.5 Carbon Dioxide Level 28 Chloride Level 97 Creatinine 0.41 L Eosinophils # 0.5 Eosinophils % 5.0 Glucose Level 82 Hematocrit 33.0 L Hemoglobin 10.1 L Lymphocytes # 3.4 H Lymphocytes % 34.1 Mean Corpuscular Hemoglobin 27.0 L Mean Corpuscular Hemoglobin Concent 30.6 L Mean Corpuscular Volume 88.2 Mean Platelet Volume 9.2 # Monocytes # 1.0 H Monocytes % 9.6 Neutrophils # 5.1 Neutrophils % 50.7 Nucleated Red Blood Cells # 0.0 Nucleated Red Blood Cells % 0.0 Platelet Count 391 Potassium Level 4.6 Red Blood Count 3.74 L Red Cell Distribution Width 14.5 Sodium Level 135 White Blood Count 10.0 # Medications Medications Current Medications Ondansetron HCl (Zofran Inj) 4 mg Q6H PRN IV NAUSEA AND/OR VOMITING Last administered on 04/30/16 16:47; Admin Dose 4 MG; Start 04/18/16 at 20:30 Docusate Sodium (Colace) 100 mg Q12H PRN PO CONSTIPATION; Start 04/19/16 at 10: 30 Bisacodyl (Dulcolax) 5 mg DAILY PRN PO CONSTIPATION; Start 04/19/16 at 10:30 Bisacodyl (Dulcolax Supp) 10 mg DAILY PRN [place] CONSTIPATION; Start 04/19/16 at 10 :30 Senna/Docusate Sodium 2 tab 2 tab HS PO Last administered on 05/03/16 20:43; Admin Dose 2 TAB; Start 04/20/16 at 21:00 Potassium Chloride/Sodium Chloride (NS-KCl 20 Meq) 1,000 ml @ 100 mls/hr Q10H IV Last administered on 05/04/16 13:44; Admin Dose 100 MLS/HR; Start 04/26/16 at 12:49 Hydralazine HCl (Apresoline) 5 mg Q6H PRN IV sbp above 160 Last administered on 04/30/16 18:39; Admin Dose 5 MG; Start 04/26/16 at 15:00 Hydromorphone HCl 1 mg 1 mg Q2 PRN IV PAIN Last administered on 05/04/16 17:04 ; Admin Dose 1 MG; Start 04/27/16 at 17:00 Linezolid 300 ml @ 300 mls/hr Q12 IVPB Last administered on 05/04/16 08:24; Admin Dose 300 MLS/HR; Start 05/01/16 at 15:30 Meropenem (Merrem 1 Gm/100 ml (Pmx)) 100 ml @ 200 mls/hr Q12 IVPB Last administered on 05/04/16 08:24; Admin Dose 200 MLS/HR; Start 05/01/16 at 16:00 IV Flush (NS 10 ml) 10 ml PRN PRN IV IV PROTOCOL; Start 05/01/16 at 16:30 Tramadol HCl (Ultram) 50 mg Q4H PRN PO PAIN LEVEL 4-7 Last administered on 17:49; Admin Dose 50 MG; Start 05/03/16 at 11:30 PAT RODRIGUEZ NP May 04, 2016 18:38
[2016-05-04] MEDS: SENNA/DOCUSATE NA (8.6MG/50MG) TAB PO SCH (21:20)
[2016-05-05] VITALS (24 sets, daily range): BP systolic 106–162; BP diastolic 57–89; PULSE 53–104; RESP 10–24
[2016-05-05] MEDS: NS + KCL 20 MEQ 1,000 ML IV SCH ×4 (01:02→23:05)
[2016-05-05] MEDS: HYDROmorphONE 1 MG/ML SYG IV PRN ×9 (01:17→22:35)
[2016-05-05 06:10] LABS: BASOPHIL # 0.1 10^3/ul (0.0-0.1); BASOPHILS % 0.5 % (0.0-2.0); EOSINOPHILS # 0.4 10^3/ul (0.0-0.5); EOSINOPHILS % 3.9 % (0.0-7.0); HEMATOCRIT 33.5 % (42.0-52.0); LYMPHOCYTES # 3.5 10^3/ul (0.8-2.9); LYMPHOCYTES % 34.1 % (15.0-51.0); MEAN CORPUSCULAR HEMOGLOBIN 28.1 pg (29.0-33.0); MEAN CORPUSCULAR HGB CONC 32.9 g/dl (32.0-37.0); MEAN CORPUSCULAR VOLUME 85.6 fl (82.0-101.0); MEAN PLATELET VOLUME 7.2 fl (7.4-10.4); MONOCYTE # 0.8 10^3/ul (0.3-0.9); MONOCYTES % 8.1 % (0.0-11.0); NEUTROPHIL # 5.4 10^3/ul (1.6-7.5); NEUTROPHILS % 53.4 % (39.0-77.0); PLATELET COUNT 399 10^3/UL (140-440); RED BLOOD COUNT 3.92 10^6/ul (4.70-6.10); RED CELL DISTRIBUTION WIDTH 15.5 % (11.5-14.5); UNCORRECTED WBC 10.2 10^3/ul (4.8-10.8); WHITE BLOOD COUNT 10.2 10^3/ul (4.8-10.8)
[2016-05-05 06:21] LABS: POTASSIUM 4.1 mmol/L (3.5-5.1)
[2016-05-05 06:24] LABS: CREATININE 0.42 mg/dl (0.61-1.24)
[2016-05-05 06:25] LABS: CALCIUM 8.7 mg/dl (8.4-10.2)
[2016-05-05 06:30] LABS: CONDITION 1; LH ANALYZER COMMENTS 1
[2016-05-05] MEDS: LINEZOLID 600 MG/D5W (PMX) 300 ML IVPB SCH ×2 (08:41→20:26)
[2016-05-05] MEDS: MEROPENEM 1 GM/100 ML (PMX) 100 ML IVPB SCH ×2 (08:42→20:27)
--- NOTE | 2016-05-05 11:41 | PN ---
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 The ultimate targets of therapeutics will be guided by their expertise (2) Morbid obesity with BMI of 40.0-44.9, adult Status: Chronic Comment: Noted he is on a calorie restriction (3) Spina bifida aperta of cervical region with hydrocephalus Status: Chronic Comment: Noted Subjective 24 Hr Interval Summary Free Text/Dictation Patient awake and alert watching TV television Constitutional: no complaints (Denies fever chills or sweats) Respiratory: no complaints (No shortness of breath) Cardiovascular: no complaints (No chest pain) Gastrointestinal: no complaints (No GI complaint) Neurologic: headache (Reports headache is a little bit less) Exam/Review of Systems Vital Signs Vitals Vital Signs Date Time Temp Pulse Resp B/P Pulse Ox O2 Delivery O2 Flow Rate FiO2 05/05/16 11:00 55 18 118/73 99 Nasal Cannula 1.0 05/05/16 07:00 98.5 05/02/16 05:13 28 Intake and Output 05/04/16 05/04/16 05/05/16 15:00 23:00 07:00 Intake Total 1220 ml 1200 ml 800 ml Output Total 968 ml 1842 ml 2024 ml Balance 252 ml -642 ml -1224 ml Exam Constitutional: alert, oriented Neck: non-tender, supple Respiratory: clear to auscultation, normal air movement Cardiovascular: nl pulses, regular rate and rhythm Gastrointestinal: nl liver, spleen, non-tender, soft Results Result Diagram: 05/05/16 0500 05/05/16 0500 Results 24 hrs Laboratory Tests Test 05/05/16 05:00 Anion Gap 13 Basophils # 0.1 Basophils % 0.5 Blood Morphology Comment Blood Urea Nitrogen 10 Calcium Level 8.7 Carbon Dioxide Level 31 Chloride Level 95 L Creatinine 0.42 L Eosinophils # 0.4 Eosinophils % 3.9 Glucose Level 85 Hematocrit 33.5 L Hemoglobin 11.0 L Lymphocytes # 3.5 H Lymphocytes % 34.1 Mean Corpuscular Hemoglobin 28.1 L Mean Corpuscular Hemoglobin Concent 32.9 Mean Corpuscular Volume 85.6 Mean Platelet Volume 7.2 #L Monocytes # 0.8 Monocytes % 8.1 Neutrophils # 5.4 Neutrophils % 53.4 Nucleated Red Blood Cells # 0.0 Nucleated Red Blood Cells % 0.0 Platelet Count 399 Potassium Level 4.1 Red Blood Count 3.92 L Red Cell Distribution Width 15.5 H Sodium Level 135 White Blood Count 10.2 Medications Medications Current Medications Ondansetron HCl (Zofran Inj) 4 mg Q6H PRN IV NAUSEA AND/OR VOMITING Last administered on 04/30/16 16:47; Admin Dose 4 MG; Start 04/18/16 at 20:30 Docusate Sodium (Colace) 100 mg Q12H PRN PO CONSTIPATION; Start 04/19/16 at 10: 30 Bisacodyl (Dulcolax) 5 mg DAILY PRN PO CONSTIPATION; Start 04/19/16 at 10:30 Bisacodyl (Dulcolax Supp) 10 mg DAILY PRN [place] CONSTIPATION; Start 04/19/16 at 10 :30 Senna/Docusate Sodium 2 tab 2 tab HS PO Last administered on 05/04/16 21:20; Admin Dose 2 TAB; Start 04/20/16 at 21:00 Potassium Chloride/Sodium Chloride (NS-KCl 20 Meq) 1,000 ml @ 100 mls/hr Q10H IV Last administered on 05/05/16 11:09; Admin Dose 100 MLS/HR; Start 04/26/16 at 12:49 Hydralazine HCl (Apresoline) 5 mg Q6H PRN IV sbp above 160 Last administered on 04/30/16 18:39; Admin Dose 5 MG; Start 04/26/16 at 15:00 Hydromorphone HCl 1 mg 1 mg Q2 PRN IV PAIN Last administered on 05/05/16 11:30 ; Admin Dose 1 MG; Start 04/27/16 at 17:00 Linezolid 300 ml @ 300 mls/hr Q12 IVPB Last administered on 05/05/16 08:41; Admin Dose 300 MLS/HR; Start 05/01/16 at 15:30 Meropenem (Merrem 1 Gm/100 ml (Pmx)) 100 ml @ 200 mls/hr Q12 IVPB Last administered on 05/05/16 08:42; Admin Dose 200 MLS/HR; Start 05/01/16 at 16:00 IV Flush (NS 10 ml) 10 ml PRN PRN IV IV PROTOCOL; Start 05/01/16 at 16:30 Tramadol HCl (Ultram) 50 mg Q4H PRN PO PAIN LEVEL 4-7 Last administered on 17:49; Admin Dose 50 MG; Start 05/03/16 at 11:30 ELIZABETH MEEKS MD May 05, 2016 11:41
--- NOTE | 2016-05-05 17:43 | PN ---
DATE: SUBJECTIVE: No acute changes, no fevers. The patient is alert, feels good. Denies pain. WBC 10.2, platelets 399. BUN 10, creatinine 0.42. MICROBIOLOGY: Cultures have been negative. ANTIMICROBIALS: The patient is on Zyvox and Merrem day #5 today. INDWELLINGS: PICC line, Gonzalez, ventriculostomy. PHYSICAL EXAMINATION: GENERAL: Morbidly obese young man who is alert, in no distress. HEENT: Head atraumatic, normocephalic. Sclerae anicteric. Buccal mucosa pink. NECK: Supple, trachea midline. CHEST: Rise symmetrical. Breath sounds clear, diminished to bases. HEART: S1, S2. ABDOMEN: Soft, bowel tones present. EXTREMITIES: Without cyanosis. Bilateral trace edema. ASSESSMENT: 1. Status post sepsis. 2. Status post vancomycin-resistant enterococci urinary tract infection. 3. Resolving encephalopathy. 4. Status post recent ventriculoperitoneal shunt revision with externalization and placement of domonique triculostomy on 05/01/2016. 5. History of spina bifida. 6. Morbid obesity. PLAN: The patient remains stable. We will continue him on current antibiotics for a couple more da ys. Follow neurosurgical recommendations. Dictated By: PAT RODRIGUEZ DROP HAMMER SET UP OPERATOR for DIAN AVILA/NTS Conf#: [id number] DID#: [id number]
[2016-05-05] MEDS: SENNA/DOCUSATE NA (8.6MG/50MG) TAB PO SCH (20:27)
[2016-05-06] VITALS (24 sets, daily range): BP systolic 112–157; BP diastolic 55–112; PULSE 59–111; RESP 12–26
[2016-05-06] MEDS: HYDROmorphONE 1 MG/ML SYG IV PRN ×6 (00:45→14:57)
[2016-05-06] MEDS: NS + KCL 20 MEQ 1,000 ML IV SCH (08:32)
[2016-05-06] MEDS: MEROPENEM 1 GM/100 ML (PMX) 100 ML IVPB SCH ×2 (10:28→21:36)
[2016-05-06] MEDS: LINEZOLID 600 MG/D5W (PMX) 300 ML IVPB SCH ×2 (10:28→21:37)
--- NOTE | 2016-05-06 12:20 | PN ---
Date/Time of Note Date/Time of Note DATE: 05/06/16 TIME: 12:17 Assessment/Plan VTE Prophylaxis VTE Prophylaxis Intervention: SCD's Lines/Catheters IV Catheter Type (from Nrsg): PICC Line Central line still needed: Yes Urinary Cath still in place: Yes Reason Cath still needed: other (indicate) Assessment/Plan Assessment/Plan 1. PRODUCT DIRECTOR shunt dysfunction, s/p left PRODUCT DIRECTOR shunt 04/26/2016, shunt was adjusted by neurosurgery on 04/29/2016, s/p left VPS externalization and placement of EVD on 05/01/2016, plan for left VPS this week 2. History of spina bifida with quadriplegia 3. History of hydrocephalus status post V-P shunt with multiple revisions 4. Chronic pain syndrome. 5. Talk to the patient about position change to avoid pressure ulcers Subjective 24 Hr Interval Summary Free Text/Dictation less headache Exam/Review of Systems Vital Signs Vitals Vital Signs Date Time Temp Pulse Resp B/P Pulse Ox O2 Delivery O2 Flow Rate FiO2 05/06/16 08:00 73 05/06/16 06:02 1.0 05/06/16 06:00 12 113/82 100 Nasal Cannula 05/06/16 04:00 97.9 Intake and Output 05/05/16 05/05/16 05/06/16 15:00 23:00 07:00 Intake Total 1370 ml 1500 ml 700 ml Output Total 1359 ml 1099 ml 1666 ml Balance 11 ml 401 ml -966 ml Exam Constitutional: alert, oriented, well developed Psych: nl mood/affect, no complaints Head: other (right side JAVIER) Eyes: EOMI, PERRL, nl conjunctiva, nl lids ENMT: nl external ears & nose, nl lips & teeth, nl nasal mucosa & septum Neck: non-tender, supple Respiratory: clear to auscultation, normal air movement, No congested cough, No crackles/rales, No diminished breath sounds, No intercostal retraction, No labored breathing, No respirations, No tactile fremitus, No wheezing Cardiovascular: nl pulses, regular rate and rhythm, No S3, No S4, No bruits, No diastolic murmur, No edema, No gallop, No irregular rhythm, No jugular venous distention (JVD), No murmurs/extra sounds, No rub, No systolic murmur Gastrointestinal: nl liver, spleen, non-tender, soft, No ascites, No bowel sounds, No distended, No firm, No hepatomegaly, No mass , No rebound or guarding, No splenomegaly, No surgical scars, No tender Musculoskeletal: nl extremities to inspection Extremities: normal pulses, No calf tenderness, No clubbing, No cyanosis, No edema, No palpable cord, No pitting pedal edema, No tenderness Neurological: HOME HEALTH OUTREACH COORDINATOR II-XII intact, nl mental status, nl speech Skin: nl turgor, rash or lesions Lymph: nl lymph nodes Results Result Diagram: 05/05/16 0500 05/05/16 0500 Medications Medications Current Medications Ondansetron HCl (Zofran Inj) 4 mg Q6H PRN IV NAUSEA AND/OR VOMITING Last administered on 04/30/16 16:47; Admin Dose 4 MG; Start 04/18/16 at 20:30 Docusate Sodium (Colace) 100 mg Q12H PRN PO CONSTIPATION; Start 04/19/16 at 10: 30 Bisacodyl (Dulcolax) 5 mg DAILY PRN PO CONSTIPATION; Start 04/19/16 at 10:30 Bisacodyl (Dulcolax Supp) 10 mg DAILY PRN [place] CONSTIPATION; Start 04/19/16 at 10 :30 Senna/Docusate Sodium 2 tab 2 tab HS PO Last administered on 05/05/16 20:27; Admin Dose 2 TAB; Start 04/20/16 at 21:00 Potassium Chloride/Sodium Chloride (NS-KCl 20 Meq) 1,000 ml @ 100 mls/hr Q10H IV Last administered on 05/06/16 08:32; Admin Dose 100 MLS/HR; Start 04/26/16 at 12:49 Hydralazine HCl (Apresoline) 5 mg Q6H PRN IV sbp above 160 Last administered on 04/30/16 18:39; Admin Dose 5 MG; Start 04/26/16 at 15:00 Hydromorphone HCl 1 mg 1 mg Q2 PRN IV PAIN Last administered on 05/06/16 10:58 ; Admin Dose 1 MG; Start 04/27/16 at 17:00 Linezolid 300 ml @ 300 mls/hr Q12 IVPB Last administered on 05/06/16 10:28; Admin Dose 300 MLS/HR; Start 05/01/16 at 15:30 Meropenem (Merrem 1 Gm/100 ml (Pmx)) 100 ml @ 200 mls/hr Q12 IVPB Last administered on 05/06/16 10:28; Admin Dose 200 MLS/HR; Start 05/01/16 at 16:00 IV Flush (NS 10 ml) 10 ml PRN PRN IV IV PROTOCOL; Start 05/01/16 at 16:30 Tramadol HCl (Ultram) 50 mg Q4H PRN PO PAIN LEVEL 4-7 Last administered on 17:49; Admin Dose 50 MG; Start 05/03/16 at 11:30 ZI ROTHMAN MD May 06, 2016 12:20
--- NOTE | 2016-05-06 12:21 | PN ---
DATE: 05/06/2016 INFECTIOUS DISEASE PROGRESS NOTE SUBJECTIVE: No acute events. The patient is lying comfortably in bed, sleeping. No fevers overnig ht, no events. INDWELLINGS: PICC line, Gonzalez, ventriculostomy. LABORATORY DATA: No labs this morning. MICROBIOLOGY: Cultures remain negative. PHYSICAL EXAMINATION: GENERAL: This is an obese, chronically ill-appearing, debilitated young man who is in no distress. HEENT: Head atraumatic, normocephalic. Sclerae anicteric. Buccal mucosa dry. NECK: Obese. CHEST: Rise symmetrical. Breath sounds clear. HEART: S1, S2. ABDOMEN: Soft, bowel sounds present. EXTREMITIES: With trace edema. ASSESSMENT: 1. Resolving sepsis. 2. Status post acute encephalopathy. 3. Hydrocephalus status post recent ventriculoperitoneal shunt revision with externalization and pl acement of ventriculostomy on 05/01/2016. 4. History of spina bifida. 5. Status post vancomycin-resistant enterococci urinary tract infection. PLAN: The patient remains stable, so far cultures have been negative. We will keep him on antibiot ics for 1 more day. Follow neurosurgical recommendations. Dictated By: PAT RODRIGUEZ FILM NUMBERER for DIAN AVLIA/BRADY Conf#: [id number] DID#: [id number]
[2016-05-06] MEDS: HYDROmorphONE 2 MG/ML SYG IV PRN ×2 (18:11→22:21)
[2016-05-06] MEDS ORDERED: HYDROmorphONE 1 MG/ML SYG IV PRN (21:00)
[2016-05-06] MEDS: morphine (ER) 15 MG TAB PO SCH (21:36)
[2016-05-06] MEDS: SENNA/DOCUSATE NA (8.6MG/50MG) TAB PO SCH (21:37)
[2016-05-06 23:02] LABS: GLUCOSE,CSF 47 mg/dl (50-80)
[2016-05-06 23:22] LABS: CSF COLOR RED
[2016-05-06 23:23] LABS: %CREANATED RBC CSF 50 %; CSF#TUBE COUNT TUBE#2; CSF#TUBES REC'D 2
[2016-05-07] VITALS (23 sets, daily range): BP systolic 101–138; BP diastolic 59–87; PULSE 64–101; RESP 10–41
[2016-05-07 01:49] LABS: # OF CELLS COUNTED 100
[2016-05-07] MEDS: HYDROmorphONE 2 MG/ML SYG IV PRN ×6 (02:08→22:17)
[2016-05-07 06:47] LABS: BASOPHILS % 0.4 % (0.0-2.0); EOSINOPHILS # 0.6 10^3/ul (0.0-0.5); EOSINOPHILS % 5.5 % (0.0-7.0); HEMATOCRIT 33.8 % (42.0-52.0); INR 1.07; LYMPHOCYTES # 3.2 10^3/ul (0.8-2.9); LYMPHOCYTES % 30.4 % (15.0-51.0); MEAN CORPUSCULAR HGB CONC 32.6 g/dl (32.0-37.0); MEAN CORPUSCULAR VOLUME 85.7 fl (82.0-101.0); MEAN PLATELET VOLUME 7.2 fl (7.4-10.4); MONOCYTE # 0.8 10^3/ul (0.3-0.9); MONOCYTES % 7.4 % (0.0-11.0); NEUTROPHIL # 5.9 10^3/ul (1.6-7.5); NEUTROPHILS % 56.3 % (39.0-77.0); PLATELET COUNT 403 10^3/UL (140-440); PROTIME 13.9 Sec (12.2-14.2); PT RATIO 1.1; RED BLOOD COUNT 3.94 10^6/ul (4.70-6.10); UNCORRECTED WBC 10.4 10^3/ul (4.8-10.8); WHITE BLOOD COUNT 10.4 10^3/ul (4.8-10.8)
[2016-05-07 06:49] LABS: PARTIAL THROMBOPLASTIN TIME 32.6 Sec (25.0-35.0)
[2016-05-07 07:02] LABS: CREATININE 0.41 mg/dl (0.61-1.24)
[2016-05-07 07:03] LABS: CALCIUM 8.9 mg/dl (8.4-10.2)
[2016-05-07 07:22] LABS: CONDITION 1
[2016-05-07 07:23] LABS: LH ANALYZER COMMENTS 1
[2016-05-07] MEDS: MEROPENEM 1 GM/100 ML (PMX) 100 ML IVPB SCH ×2 (09:34→20:26)
[2016-05-07] MEDS: morphine (ER) 15 MG TAB PO SCH ×2 (09:34→20:30)
[2016-05-07 09:44] LABS: GLUCOSE,CSF 44 mg/dl (50-80)
[2016-05-07 10:20] LABS: %CREANATED RBC CSF 70 %; CSF COLOR RED; CSF#TUBE COUNT TUBE#1; CSF#TUBES REC'D 2
[2016-05-07 10:26] LABS: CSF EOSINOPHIL 1 %
[2016-05-07] MEDS: LINEZOLID 600 MG/D5W (PMX) 300 ML IVPB SCH ×2 (10:27→22:16)
[2016-05-07 10:28] LABS: # OF CELLS COUNTED 45
[2016-05-07] MEDS ORDERED: ROCURONIUM 50 MG INJ ONE (10:43)
[2016-05-07] MEDS ORDERED: NEOSTIGMINE 3 MG/3 ML SYRINGE ONE (10:43)
[2016-05-07] MEDS ORDERED: PROPOFOL 20 ML ONE (10:43)
[2016-05-07] MEDS ORDERED: LIDOCAINE 2% (SDV) 5 ML INJ ONE (10:43)
[2016-05-07] MEDS ORDERED: GLYCOPYRROLATE 0.4 MG INJ ONE (10:43)
[2016-05-07] MEDS ORDERED: MIDAZOLAM 1 MG/ML 2 ML INJ ONE (10:44)
[2016-05-07] MEDS ORDERED: FENTAnyl 50 MCG/ML VIAL ONE (10:44)
--- NOTE | 2016-05-07 10:44 | CONS ---
Date/Time of Note Date/Time of Note DATE: 05/07/16 TIME: 10:42 Assessment/Plan Assessment/Plan Chief Complaint/Hosp Course Very pleasant 26 y/o male with pmh: Spina Bifida, depression, chronic headaches with hydrocephalus. Pt had VPS placement as a child but most recently underwent multiple bilateral ELL TEACHER (Abd/Pleural) shunt placements with Dr. Triplett starting 2008 and most recent left vps revision was performed at [facility] by Dr. Triplett as well. Pt presents with bifrontal HAs. Per Dr. Triplett's notes states possible non functioning left vps due to "scarring in the peritoneal cavity not allowing enough surface for CSF absorption area." Dr. Triplett / Dr. Castelan (partner) did not feel comfortable performing ventricular atrial shunt and transfer was then requested. pmh/psx: per hpi/chart meds: see med recon ros: per hpi/chart Problems: Additional Assessment/Plan s/p left vps externalization and placement of EVD ICP stable EVD draining well plan npo EVD clamped x 4 hours Right vps placement today. Extensive d/w patient about risk/complications 3-5% overall as pre-printed in Dr. Bernal's office consent. All questions answered and no guarantees given. Pt has agreed to proceed with right vps placement. Dispo: ICU post op Consultation Date/Type/Reason Admit Date/Time Apr 18, 2016 at 18:55 Initial Consult Date 04/19/16 Type of Consultation: ID Reason for Consultation S: NAD EVD clamped x 4 hours HAs improving NPO ICP stable and EVD draining well Exam/Review of Systems Vital Signs Vitals Vital Signs Date Time Temp Pulse Resp B/P Pulse Ox O2 Delivery O2 Flow Rate FiO2 05/07/16 10:00 64 16 112/60 100 Nasal Cannula 1.0 05/07/16 08:00 98.2 Intake and Output 05/06/16 05/06/16 05/07/16 15:00 23:00 07:00 Intake Total 1320 ml 890 ml 480 ml Output Total 593 ml 1654 ml 1251 ml Balance 727 ml -764 ml -771 ml Exam Neurological: other (MS: AAOX4 CN: PERRL M; fC bilat UE) Results Result Diagram: 05/07/1625 05/07/16 0525 Results 24 hrs Laboratory Tests Test 05/06/16 22:00 05/07/16 05:25 05/07/16 08:11 CSF Appearance BLOODY BLOODY CSF Cell Count Tube # TUBE#2 TUBE#1 CSF Color RED RED CSF Crenated Cells 50 70 CSF Glucose 47 L 44 L CSF Lymphocytes % 40 32 CSF Monocytes % 5 18 CSF Neutrophils % 55 49 CSF RBC 2 H 80311 H CSF Total Cells Counted 100 45 CSF Total Protein 150 H 107 H CSF Tubes Submitted 2 2 CSF Volume 16.0 11.0 CSF WBC 25 *H 45 *H Activated Partial Thromboplast Time 32.6 Anion Gap 16 Basophils # 0.0 Basophils % 0.4 Blood Morphology Comment Blood Urea Nitrogen 12 Calcium Level 8.9 Carbon Dioxide Level 32 H Chloride Level 98 Creatinine 0.41 L Eosinophils # 0.6 H Eosinophils % 5.5 Glucose Level 83 Hematocrit 33.8 L Hemoglobin 11.0 L INR International Normalized Ratio 1.07 Lymphocytes # 3.2 H Lymphocytes % 30.4 Mean Corpuscular Hemoglobin 28.0 L Mean Corpuscular Hemoglobin Concent 32.6 Mean Corpuscular Volume 85.7 Mean Platelet Volume 7.2 L Monocytes # 0.8 Monocytes % 7.4 Neutrophils # 5.9 Neutrophils % 56.3 Nucleated Red Blood Cells # 0.0 Nucleated Red Blood Cells % 0.0 Platelet Count 403 Potassium Level 4.0 Prothrombin Time 13.9 Prothrombin Time Ratio 1.1 Red Blood Count 3.94 L Red Cell Distribution Width 16.0 H Sodium Level 142 White Blood Count 10.4 CSF Eosinophils % 1 Medications Medications Current Medications Ondansetron HCl (Zofran Inj) 4 mg Q6H PRN IV NAUSEA AND/OR VOMITING Last administered on 04/30/16 16:47; Admin Dose 4 MG; Start 04/18/16 at 20:30 Docusate Sodium (Colace) 100 mg Q12H PRN PO CONSTIPATION; Start 04/19/16 at 10: 30 Bisacodyl (Dulcolax) 5 mg DAILY PRN PO CONSTIPATION; Start 04/19/16 at 10:30 Bisacodyl (Dulcolax Supp) 10 mg DAILY PRN [place] CONSTIPATION; Start 04/19/16 at 10 :30 Senna/Docusate Sodium (Senokot-S) 2 tab HS PO Last administered on 05/06/16 21: 37; Admin Dose 2 TAB; Start 04/20/16 at 21:00 Hydralazine HCl 5 mg 5 mg Q6H PRN IV sbp above 160 Last administered on 18:39; Admin Dose 5 MG; Start 04/26/16 at 15:00 Linezolid 300 ml @ 300 mls/hr Q12 IVPB Last administered on 05/07/16 10:27; Admin Dose 300 MLS/HR; Start 05/01/16 at 15:30 Meropenem (Merrem 1 Gm/100 ml (Pmx)) 100 ml @ 200 mls/hr Q12 IVPB Last administered on 05/07/16 09:34; Admin Dose 200 MLS/HR; Start 05/01/16 at 16:00 IV Flush (NS 10 ml) 10 ml PRN PRN IV IV PROTOCOL; Start 05/01/16 at 16:30 Morphine Sulfate (Ms Contin (Er)) 15 mg BID PO Last administered on 05/07/16 09 :34; Admin Dose 15 MG; Start 05/06/16 at 21:00 Hydromorphone HCl (Dilaudid) 2 mg Q4H PRN IV PAIN Last administered on 10:27; Admin Dose 2 MG; Start 05/06/16 at 18:05 ALEX MOTA NP May 07, 2016 10:44
--- NOTE | 2016-05-07 11:10 | PN ---
Date/Time of Note Date/Time of Note DATE: 05/07/16 TIME: 11:09 Assessment/Plan VTE Prophylaxis VTE Prophylaxis Intervention: SCD's Lines/Catheters IV Catheter Type (from Nrsg): PICC Line Central line still needed: Yes Urinary Cath still in place: Yes Reason Cath still needed: other (indicate) Assessment/Plan Assessment/Plan 1. 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 talked with neurosurgery today 2. History of spina bifida with quadriplegia 3. History of hydrocephalus status post V-P shunt with multiple revisions 4. Chronic pain syndrome. Subjective 24 Hr Interval Summary Free Text/Dictation no event. Exam/Review of Systems Vital Signs Vitals Vital Signs Date Time Temp Pulse Resp B/P Pulse Ox O2 Delivery O2 Flow Rate FiO2 05/07/16 10:00 64 16 112/60 100 Nasal Cannula 1.0 05/07/16 08:00 98.2 Intake and Output 05/06/16 05/06/16 05/07/16 15:00 23:00 07:00 Intake Total 1320 ml 890 ml 480 ml Output Total 593 ml 1654 ml 1251 ml Balance 727 ml -764 ml -771 ml Exam Constitutional: alert, oriented, well developed Psych: nl mood/affect, no complaints Head: normocephalic Eyes: EOMI, PERRL, nl conjunctiva, nl lids ENMT: nl external ears & nose, nl lips & teeth, nl nasal mucosa & septum Neck: non-tender, supple Respiratory: clear to auscultation, normal air movement Cardiovascular: nl pulses, regular rate and rhythm, No S3, No S4, No bruits, No diastolic murmur, No edema, No gallop, No irregular rhythm, No jugular venous distention (JVD), No murmurs/extra sounds, No other, No rub, No systolic murmur Gastrointestinal: nl liver, spleen, non-tender, soft, No ascites, No bowel sounds, No distended, No firm, No hepatomegaly, No mass , No other, No rebound or guarding, No splenomegaly, No surgical scars, No tender Musculoskeletal: nl extremities to inspection Extremities: normal pulses, No calf tenderness, No clubbing, No cyanosis, No edema, No other, No palpable cord, No pitting pedal edema, No tenderness Neurological: OIL DERRICK OPERATOR II-XII intact, nl mental status, nl speech, nl strength Skin: nl turgor Lymph: nl lymph nodes Results Result Diagram: 05/07/16 0525 05/07/16 0525 Results 24 hrs Laboratory Tests Test 05/06/16 22:00 05/07/16 05:25 05/07/16 08:11 CSF Appearance BLOODY BLOODY CSF Cell Count Tube # TUBE#2 TUBE#1 CSF Color RED RED CSF Crenated Cells 50 70 CSF Glucose 47 L 44 L CSF Lymphocytes % 40 32 CSF Monocytes % 5 18 CSF Neutrophils % 55 49 CSF RBC 2 H 34914 H CSF Total Cells Counted 100 45 CSF Total Protein 150 H 107 H CSF Tubes Submitted 2 2 CSF Volume 16.0 11.0 CSF WBC 25 *H 45 *H Activated Partial Thromboplast Time 32.6 Anion Gap 16 Basophils # 0.0 Basophils % 0.4 Blood Morphology Comment Blood Urea Nitrogen 12 Calcium Level 8.9 Carbon Dioxide Level 32 H Chloride Level 98 Creatinine 0.41 L Eosinophils # 0.6 H Eosinophils % 5.5 Glucose Level 83 Hematocrit 33.8 L Hemoglobin 11.0 L INR International Normalized Ratio 1.07 Lymphocytes # 3.2 H Lymphocytes % 30.4 Mean Corpuscular Hemoglobin 28.0 L Mean Corpuscular Hemoglobin Concent 32.6 Mean Corpuscular Volume 85.7 Mean Platelet Volume 7.2 L Monocytes # 0.8 Monocytes % 7.4 Neutrophils # 5.9 Neutrophils % 56.3 Nucleated Red Blood Cells # 0.0 Nucleated Red Blood Cells % 0.0 Platelet Count 403 Potassium Level 4.0 Prothrombin Time 13.9 Prothrombin Time Ratio 1.1 Red Blood Count 3.94 L Red Cell Distribution Width 16.0 H Sodium Level 142 White Blood Count 10.4 CSF Eosinophils % 1 Medications Medications Current Medications Ondansetron HCl (Zofran Inj) 4 mg Q6H PRN IV NAUSEA AND/OR VOMITING Last administered on 04/30/16t 16:47; Admin Dose 4 MG; Start 04/18/16 at 20:30 Docusate Sodium (Colace) 100 mg Q12H PRN PO CONSTIPATION; Start 04/19/16 at 10: 30 Bisacodyl (Dulcolax) 5 mg DAILY PRN PO CONSTIPATION; Start 04/19/16 at 10:30 Bisacodyl (Dulcolax Supp) 10 mg DAILY PRN ID CONSTIPATION; Start 04/19/16 at 10 :30 Senna/Docusate Sodium (Senokot-S) 2 tab HS PO Last administered on 05/06/16 21: 37; Admin Dose 2 TAB; Start 04/20/16 at 21:00 Hydralazine HCl 5 mg 5 mg Q6H PRN IV sbp above 160 Last administered on 18:39; Admin Dose 5 MG; Start 04/26/16 at 15:00 Linezolid 300 ml @ 300 mls/hr Q12 IVPB Last administered on 05/07/16 10:27; Admin Dose 300 MLS/HR; Start 05/01/16 at 15:30 Meropenem (Merrem 1 Gm/100 ml (Pmx)) 100 ml @ 200 mls/hr Q12 IVPB Last administered on 05/07/16 09:34; Admin Dose 200 MLS/HR; Start 05/01/16 at 16:00 IV Flush (NS 10 ml) 10 ml PRN PRN IV IV PROTOCOL; Start 05/01/16 at 16:30 Morphine Sulfate (Ms Contin (Er)) 15 mg BID PO Last administered on 05/07/16 09 :34; Admin Dose 15 MG; Start 05/06/16 at 21:00 Hydromorphone HCl (Dilaudid) 2 mg Q4H PRN IV PAIN Last administered on 10:27; Admin Dose 2 MG; Start 05/06/16 at 18:05 ZI ROTHMAN MD May 07, 2016 11:10
--- NOTE | 2016-05-07 13:00 | CONS ---
Date/Time of Note Date/Time of Note DATE: 05/07/16 TIME: 12:59 Assessment/Plan Assessment/Plan Chief Complaint/Hosp Course SUBJECTIVE: Patient is alert. Looks comfortable. Denies pain, discomfort. No fevers. INDWELLINGS: Gonzalez, ventriculostomy and PICC line. ANTIMICROBIALS: 1. Zyvox. 2. Merrem. PHYSICAL EXAMINATION: GENERAL: Morbidly obese, young man who is alert, in no distress. HEENT: Head atraumatic, normocephalic. Sclerae anicteric. Buccal mucosa pink. NECK: Obese. CHEST: Rise symmetrical. Breath sounds clear, diminished to bases. HEART: S1, S2. ABDOMEN: Soft, bowel sounds present. EXTREMITIES: With trace edema. ASSESSMENT: 1. Sepsis, resolving, possibly aspiration event. So far blood and urine cultures have been negative. 2. Status post urinary tract infection. 3. Resolving encephalopathy. 4. Hydrocephalus, status post JUMP IRON MACHINE PRESSER shunt revision with externalization and placement of ventriculostomy on 05/01/2016. 5. Status post vancomycin-resistant enterococcus urinary tract infection. 6. Multiple pressure sores. 7. Morbid obesity. 8. Spina bifida with severe decompensated state. PLAN: The patient remains stable, continue abx, pending VPS placement. DW staff DW Cale Adams NP Problems: Consultation Date/Type/Reason Admit Date/Time Apr 18, 2016 at 18:55 Initial Consult Date 04/19/16 Type of Consultation: ID Exam/Review of Systems Vital Signs Vitals Vital Signs Date Time Temp Pulse Resp B/P Pulse Ox O2 Delivery O2 Flow Rate FiO2 05/07/16 11:00 101 12 129/70 98 Room Air 05/07/16 10:00 1.0 05/07/16 08:00 98.2 Intake and Output 05/06/16 05/06/16 05/07/16 15:00 23:00 07:00 Intake Total 1320 ml 890 ml 480 ml Output Total 593 ml 1654 ml 1251 ml Balance 727 ml -764 ml -771 ml Results Result Diagram: 05/07/16 0525 05/07/16 0525 Results 24 hrs Laboratory Tests Test 05/06/16 22:00 05/07/16 05:25 05/07/16 08:11 CSF Appearance BLOODY BLOODY CSF Cell Count Tube # TUBE#2 TUBE#1 CSF Color RED RED CSF Crenated Cells 50 70 CSF Glucose 47 L 44 L CSF Lymphocytes % 40 32 CSF Monocytes % 5 18 CSF Neutrophils % 55 49 CSF RBC 2 H 40884 H CSF Total Cells Counted 100 45 CSF Total Protein 150 H 107 H CSF Tubes Submitted 2 2 CSF Volume 16.0 11.0 CSF WBC 25 *H 45 *H Activated Partial Thromboplast Time 32.6 Anion Gap 16 Basophils # 0.0 Basophils % 0.4 Blood Morphology Comment Blood Urea Nitrogen 12 Calcium Level 8.9 Carbon Dioxide Level 32 H Chloride Level 98 Creatinine 0.41 L Eosinophils # 0.6 H Eosinophils % 5.5 Glucose Level 83 Hematocrit 33.8 L Hemoglobin 11.0 L INR International Normalized Ratio 1.07 Lymphocytes # 3.2 H Lymphocytes % 30.4 Mean Corpuscular Hemoglobin 28.0 L Mean Corpuscular Hemoglobin Concent 32.6 Mean Corpuscular Volume 85.7 Mean Platelet Volume 7.2 L Monocytes # 0.8 Monocytes % 7.4 Neutrophils # 5.9 Neutrophils % 56.3 Nucleated Red Blood Cells # 0.0 Nucleated Red Blood Cells % 0.0 Platelet Count 403 Potassium Level 4.0 Prothrombin Time 13.9 Prothrombin Time Ratio 1.1 Red Blood Count 3.94 L Red Cell Distribution Width 16.0 H Sodium Level 142 White Blood Count 10.4 CSF Eosinophils % 1 Medications Medications Current Medications Ondansetron HCl (Zofran Inj) 4 mg Q6H PRN IV NAUSEA AND/OR VOMITING Last administered on 04/30/16 16:47; Admin Dose 4 MG; Start 04/18/16 at 20:30 Docusate Sodium (Colace) 100 mg Q12H PRN PO CONSTIPATION; Start 04/19/16 at 10: 30 Bisacodyl (Dulcolax) 5 mg DAILY PRN PO CONSTIPATION; Start 04/19/16 at 10:30 Bisacodyl (Dulcolax Supp) 10 mg DAILY PRN [place] CONSTIPATION; Start 04/19/16 at 10 :30 Senna/Docusate Sodium (Senokot-S) 2 tab HS PO Last administered on 05/06/16 21: 37; Admin Dose 2 TAB; Start 04/20/16 at 21:00 Hydralazine HCl 5 mg 5 mg Q6H PRN IV sbp above 160 Last administered on 18:39; Admin Dose 5 MG; Start 04/26/16 at 15:00 Linezolid 300 ml @ 300 mls/hr Q12 IVPB Last administered on 05/07/16 10:27; Admin Dose 300 MLS/HR; Start 05/01/16 at 15:30 Meropenem (Merrem 1 Gm/100 ml (Pmx)) 100 ml @ 200 mls/hr Q12 IVPB Last administered on 05/07/16 09:34; Admin Dose 200 MLS/HR; Start 05/01/16 at 16:00 IV Flush (NS 10 ml) 10 ml PRN PRN IV IV PROTOCOL; Start 05/01/16 at 16:30 Morphine Sulfate (Ms Contin (Er)) 15 mg BID PO Last administered on 05/07/16 09 :34; Admin Dose 15 MG; Start 05/06/16 at 21:00 Hydromorphone HCl (Dilaudid) 2 mg Q4H PRN IV PAIN Last administered on 10:27; Admin Dose 2 MG; Start 05/06/16 at 18:05 PAT RODRIGUEZ LEARNING AND DEVELOPMENT DIRECTOR May 07, 2016 13:00
[2016-05-07] MEDS ORDERED: ATROPINE 1 MG/10 ML SYRINGE ONE (13:33)
--- NOTE | 2016-05-07 14:05 | CONS ---
DATE OF ADMISSION: 04/18/2016 DATE OF CONSULTATION: 05/07/2016 PAIN MANAGEMENT CONSULTATION HISTORY OF PRESENT ILLNESS: This is a 26-year-old gentleman who has a past medical history of spina bifida and quadriplegia, history of hydrocephalus status post GYRO MECHANIC shunt placed and revisions in the past who was transferred to [facility] from an outside facility for GYRO MECHANIC shunt gordon ion. The patient is currently status post placement of ventriculostomy shunt on 05/01/2016. He has also been seen by infectious disease for vancomycin-resistant enterococcal urinary tract infection. The patient is currently in the intensive care unit. I was asked to see him for ongoing pain. He describes his pain location in his head in the area of the surgical procedure. He states it is chr onic, does not alleviate. He has peaks and troughs associated with it. It does not radiate into hi s shoulders or cervical spine and thoracic spine. It is alleviated with current medications, but on ly for a short period of time. There is no past medical history of opioid abuse in this patient. D escribes his pain as 7/10. CURRENT MEDICATIONS: Morphine p.r.n. IV. MEDICATIONS: Please refer to reconciliation sheet. ALLERGIES: EXTENSIVE, BUT HIS CHART STATES HE HAS AN ALLERGY TO: 1. OXYCODONE. 2. KETOROLAC. 3. HYDROCODONE. 4. ACETAMINOPHEN. 5. MOTRIN. 6. IBUPROFEN. 7. OTHER NONSTEROIDAL ANTIINFLAMMATORY MEDICATIONS. HOWEVER, PATIENT DID NOT TELL ME THE SAME INFORMATION, STATING HE WAS ONLY ALLERGIC TO NONSTEROIDAL ANTIINFLAMMATORY MEDICATIONS. PAST MEDICAL HISTORY: Other major medical problems only per history of present illness. SOCIAL HISTORY: Currently unobtainable. FAMILY HISTORY: The patient is somewhat somnolent. REVIEW OF SYSTEMS: Cannot be obtained at this time. PHYSICAL EXAMINATION: GENERAL: Shows a somewhat obese male who is in no major acute distress at this time, but somewhat s omnolent on examination, but easily arousable and oriented. HEENT: He is normocephalic and atraumatic. NECK: Has a surgical bandage around his head. CHEST: Shows bilateral clear breath sounds throughout both lung arredondo. CORONARY: S1, S2, without S3, S4, murmur, gallop, rub. Normal rate, normal rhythm on examination. ABDOMEN: Grossly benign. Normoactive bowel sounds throughout all 4 quadrants. LABORATORY TESTS: White blood cell count of 10.4, hemoglobin 11.0, hematocrit of 33.8, MCV of 85.7, platelet count of 403,000. Chemistries: Serum sodium 142, potassium 4.0, chloride 98, bicarbonate 32, BUN of 12, creatinine 0.41, blood sugar of 83. ASSESSMENT AND PLAN: This gentleman has postsurgical headache which seems to be not related to an i ntracranial process, more to the surgical site itself. Taking him off the morphine and putting him on a longer p.r.n. dose of Dilaudid in this gentleman and also very low dose of a long-acting opioid . Unfortunately we are only left with morphine and this gentleman and for short period of time it w ould be indicated; however, I will discontinue his MS morphine as soon as possible, continue with lo w dose of IV Dilaudid instead of morphine, but adjust his dose to 2 mg every 4 hours instead of ever y 2 hours. Follow his neurological findings closely and his renal function. Dictated By: KEVYN FONTANA MD, LP/BRADY Conf#: [id number] DID#: [id number]
[2016-05-07] MEDS: SENNA/DOCUSATE NA (8.6MG/50MG) TAB PO SCH (20:26)
[2016-05-08] VITALS (24 sets, daily range): BP systolic 94–149; BP diastolic 47–121; PULSE 78–109; RESP 0–22
[2016-05-08] MEDS: HYDROmorphONE 2 MG/ML SYG IV PRN ×7 (02:20→22:01)
[2016-05-08] MEDS: LINEZOLID 600 MG/D5W (PMX) 300 ML IVPB SCH ×2 (10:03→22:00)
[2016-05-08] MEDS: MEROPENEM 1 GM/100 ML (PMX) 100 ML IVPB SCH ×2 (10:03→21:19)
[2016-05-08] MEDS: morphine (ER) 15 MG TAB PO SCH ×2 (10:09→21:19)
--- NOTE | 2016-05-08 13:09 | CONS ---
Date/Time of Note Date/Time of Note DATE: 05/08/16 TIME: 13:03 Assessment/Plan Assessment/Plan Chief Complaint/Hosp Course Very pleasant 26 y/o male with pmh: Spina Bifida, depression, chronic headaches with hydrocephalus. Pt had VPS placement as a child but most recently underwent multiple bilateral SEED SPECIALIST (Abd/Pleural) shunt placements with Dr. Triplett starting 2008 and most recent left vps revision was performed at [facility] by Dr. Triplett as well. Pt presents with bifrontal HAs. Per Dr. Triplett's notes states possible non functioning left vps due to "scarring in the peritoneal cavity not allowing enough surface for CSF absorption area." Dr. Triplett / Dr. Castelan (partner) did not feel comfortable performing ventricular atrial shunt and transfer was then requested. pmh/psx: per hpi/chart meds: see med recon ros: per hpi/chart Problems: Additional Assessment/Plan left EVD working well with stable ICP CSF negative so far Pt scheduled for right VPS placement. However, during surgical prep, right chest area appeared inflamed and right foreign body was noticed protruding from skin. Foreign body (previous peritoneal cath) likely from previous shunt revision/ removal at [facility] with pt's previous neurosurgeon. Upon removing catheter, pt with some purulent discharge from area. Dr. Bernal Aborted surgery and pt sent back to icu ID following and will continue IV antibiotics Right VPS rescheduled until Friday/Friday next week or when cleared by ID Cont ICU obs Cont EVD orders Consultation Date/Type/Reason Admit Date/Time Apr 18, 2016 at 18:55 Initial Consult Date 04/19/16 Type of Consultation: ID 24 HR Interval Summary Free Text/Dictation S: left EVD working well ICP stable EVD draining well Exam/Review of Systems Vital Signs Vitals Vital Signs Date Time Temp Pulse Resp B/P Pulse Ox O2 Delivery O2 Flow Rate FiO2 05/08/16 11:00 100 22 112/66 91 Room Air 05/08/16 08:00 98.9 05/07/16 10:00 1.0 Intake and Output 05/07/16 05/07/16 05/08/16 15:00 23:00 07:00 Intake Total 800 ml 320 ml 300 ml Output Total 1065 ml 1202 ml 688 ml Balance -265 ml -882 ml -388 ml Exam Neurological: other (MS: AAOX4 CN: PERRL M: FC , 5/5 bilat UE, 0/5 LE ) Results Result Diagram: 05/07/1652405/07/16524 Medications Medications Current Medications Ondansetron HCl (Zofran Inj) 4 mg Q6H PRN IV NAUSEA AND/OR VOMITING Last administered on 04/30/16 16:47; Admin Dose 4 MG; Start 04/18/16 at 20:30 Docusate Sodium (Colace) 100 mg Q12H PRN PO CONSTIPATION; Start 04/19/16 at 10: 30 Bisacodyl (Dulcolax) 5 mg DAILY PRN PO CONSTIPATION; Start 04/19/16 at 10:30 Bisacodyl (Dulcolax Supp) 10 mg DAILY PRN [place] CONSTIPATION; Start 04/19/16 at 10 :30 Senna/Docusate Sodium (Senokot-S) 2 tab HS PO Last administered on 05/06/16 21: 37; Admin Dose 2 TAB; Start 04/20/16 at 21:00 Hydralazine HCl 5 mg 5 mg Q6H PRN IV sbp above 160 Last administered on 18:39; Admin Dose 5 MG; Start 04/26/16 at 15:00 Linezolid 300 ml @ 300 mls/hr Q12 IVPB Last administered on 05/08/16 10:03; Admin Dose 300 MLS/HR; Start 05/01/16 at 15:30 Meropenem (Merrem 1 Gm/100 ml (Pmx)) 100 ml @ 200 mls/hr Q12 IVPB Last administered on 05/08/16 10:03; Admin Dose 200 MLS/HR; Start 05/01/16 at 16:00 IV Flush (NS 10 ml) 10 ml PRN PRN IV IV PROTOCOL; Start 05/01/16 at 16:30 Morphine Sulfate (Ms Contin (Er)) 15 mg BID PO Last administered on 05/08/16 10 :09; Admin Dose 15 MG; Start 05/06/16 at 21:00 Hydromorphone HCl (Dilaudid) 2 mg Q4H PRN IV PAIN Last administered on 10:04; Admin Dose 2 MG; Start 05/06/16 at 18:05 LOO,ALEX G ELECTRONICS RECYCLER May 08, 2016 13:09
--- NOTE | 2016-05-08 13:54 | PN ---
Date/Time of Note Date/Time of Note DATE: 05/08/16 TIME: 13:50 Assessment/Plan VTE Prophylaxis VTE Prophylaxis Intervention: SCD's Lines/Catheters IV Catheter Type (from Nrsg): PICC Line Central line still needed: Yes Urinary Cath still in place: Yes Reason Cath still needed: other (indicate) Assessment/Plan Assessment/Plan 1. 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 History of spina bifida with quadriplegia 3. History of hydrocephalus status post V-P shunt with multiple revisions 4. Chronic pain syndrome. Subjective 24 Hr Interval Summary Free Text/Dictation Pt scheduled for right VPS placement on 05/07/2016. However, during surgical prep , right chest area appeared inflamed and right foreign body was noticed protruding from skin. Foreign body (previous peritoneal cath) likely from previous shunt revision/ removal at [facility] with pt's previous neurosurgeon. Upon removing catheter, pt with some purulent discharge from area. Will continue antibiotics and surgery is rescheduled next week Exam/Review of Systems Vital Signs Vitals Vital Signs Date Time Temp Pulse Resp B/P Pulse Ox O2 Delivery O2 Flow Rate FiO2 05/08/16 13:00 101 20 126/75 95 Room Air 05/08/16 12:00 99.0 05/07/16 10:00 1.0 Intake and Output 05/07/16 05/07/16 05/08/16 14:59 22:59 06:59 Intake Total 800 ml 320 ml 300 ml Output Total 1044 ml 1194 ml 656 ml Balance -244 ml -874 ml -356 ml Exam Constitutional: alert, oriented, well developed Psych: nl mood/affect, no complaints Head: other (EVD) Eyes: EOMI, PERRL, nl conjunctiva, nl lids ENMT: nl external ears & nose, nl lips & teeth, nl nasal mucosa & septum Neck: non-tender, supple Respiratory: clear to auscultation, normal air movement, No congested cough, No crackles/rales, No diminished breath sounds, No intercostal retraction, No labored breathing, No other, No respirations, No tactile fremitus, No wheezing Cardiovascular: nl pulses, regular rate and rhythm, No S3, No S4, No bruits, No diastolic murmur, No edema, No gallop, No irregular rhythm, No jugular venous distention (JVD), No murmurs/extra sounds, No rub, No systolic murmur Gastrointestinal: nl liver, spleen, non-tender, soft, No ascites, No bowel sounds, No distended, No firm, No hepatomegaly, No mass , No rebound or guarding, No splenomegaly, No surgical scars, No tender Musculoskeletal: nl extremities to inspection Extremities: normal pulses, No calf tenderness, No clubbing, No cyanosis, No edema, No palpable cord, No pitting pedal edema, No tenderness Neurological: BARBERING INSTRUCTOR II-XII intact, nl mental status, nl speech, nl strength Skin: nl turgor Lymph: nl lymph nodes Results Result Diagram: 05/07/1625 05/07/16524 Medications Medications Current Medications Ondansetron HCl (Zofran Inj) 4 mg Q6H PRN IV NAUSEA AND/OR VOMITING Last administered on 04/30/16 16:47; Admin Dose 4 MG; Start 04/18/16 at 20:30 Docusate Sodium (Colace) 100 mg Q12H PRN PO CONSTIPATION; Start 04/19/16 at 10: 30 Bisacodyl (Dulcolax) 5 mg DAILY PRN PO CONSTIPATION; Start 04/19/16 at 10:30 Bisacodyl (Dulcolax Supp) 10 mg DAILY PRN ME CONSTIPATION; Start 04/19/16 at 10 :30 Senna/Docusate Sodium (Senokot-S) 2 tab HS PO Last administered on 05/06/16 21: 37; Admin Dose 2 TAB; Start 04/20/16 at 21:00 Hydralazine HCl 5 mg 5 mg Q6H PRN IV sbp above 160 Last administered on 18:39; Admin Dose 5 MG; Start 04/26/16 at 15:00 Linezolid 300 ml @ 300 mls/hr Q12 IVPB Last administered on 05/08/16 10:03; Admin Dose 300 MLS/HR; Start 05/01/16 at 15:30 Meropenem (Merrem 1 Gm/100 ml (Pmx)) 100 ml @ 200 mls/hr Q12 IVPB Last administered on 05/08/16 10:03; Admin Dose 200 MLS/HR; Start 05/01/16 at 16:00 IV Flush (NS 10 ml) 10 ml PRN PRN IV IV PROTOCOL; Start 05/01/16 at 16:30 Morphine Sulfate (Ms Contin (Er)) 15 mg BID PO Last administered on 05/08/16 10 :09; Admin Dose 15 MG; Start 05/06/16 at 21:00 Hydromorphone HCl (Dilaudid) 2 mg Q4H PRN IV PAIN Last administered on 10:04; Admin Dose 2 MG; Start 05/06/16 at 18:05 ZI ROTHMAN MD May 08, 2016 13:54
--- NOTE | 2016-05-08 16:11 | PN ---
DATE: 05/08/2016 SUBJECTIVE: The patient is alert, looks comfortable. Denies pain, discomfort, no fevers. No labs this morning. MICROBIOLOGY: All cultures have been negative except urine on admission grew VRE. INDWELLINGS: PICC line, ventriculostomy, Gonzalez. ANTIMICROBIALS: 1. Zyvox. 2. Meropenem. PHYSICAL EXAMINATION: GENERAL: Morbidly obese young man who is lying comfortably in bed. HEENT: Head atraumatic, normocephalic. Sclerae anicteric. Buccal mucosa pink. NECK: Supple. CHEST: Rise symmetrical. Breath sounds clear. HEART: S1, S2. ABDOMEN: Soft, bowel sounds present. EXTREMITIES: With bilateral edema. SKIN: No jaundice, no cyanosis. ASSESSMENT: 1. Sepsis, resolving. 2. Right chest cellulitis with retained foreign body, likely previous peritoneal catheter. 3. Hydrocephalus, status post ventriculoperitoneal shunt revision with externalization and ventricu lostomy placement. 4. Status post vancomycin-resistant enterococci urinary tract infection. 5. Morbid obesity. 6. Spina bifida. 7. Status post encephalopathy. PLAN: The patient remains stable. As per neurosurgery notes, the patient is supposed to have MEDICAL REVIEWER to day. However, surgery is on hold secondary to right chest cellulitis secondary to retained foreign body with recommendations to continue antibiotics for now. Dictated By: PAT RODRIGUEZ LAYOUT FORMER for DIAN AVILA/BRADY Conf#: [id number] DID#: [id number]
[2016-05-08 20:10] LABS: # OF CELLS COUNTED 100
[2016-05-08 20:41] LABS: GLUCOSE,CSF 46 mg/dl (50-80)
[2016-05-08] MEDS: SENNA/DOCUSATE NA (8.6MG/50MG) TAB PO SCH (21:18)
[2016-05-08 22:31] LABS: CSF COLOR RED
[2016-05-08 22:32] LABS: %CREANATED RBC CSF 0 %; CSF#TUBES REC'D 1
[2016-05-08 22:33] LABS: CSF#TUBE COUNT TUBE#1
[2016-05-09] VITALS (24 sets, daily range): BP systolic 89–137; BP diastolic 43–77; PULSE 67–100; RESP 11–26
[2016-05-09] MEDS: HYDROmorphONE 2 MG/ML SYG IV PRN ×5 (02:00→21:36)
[2016-05-09 09:04] LABS: GLUCOSE,CSF 49 mg/dl (50-80)
[2016-05-09 09:16] LABS: CSF COLOR PINKISH; CSF#TUBES REC'D 4
[2016-05-09 09:17] LABS: %CREANATED RBC CSF 10 %; CSF#TUBE COUNT TUBE#4
[2016-05-09 09:20] LABS: # OF CELLS COUNTED 13; CSF BASOPHIL 0 %; CSF EOSINOPHIL 1 %
[2016-05-09] MEDS: LINEZOLID 600 MG/D5W (PMX) 300 ML IVPB SCH ×2 (09:31→20:30)
[2016-05-09] MEDS: MEROPENEM 1 GM/100 ML (PMX) 100 ML IVPB SCH ×2 (09:33→20:30)
[2016-05-09] MEDS: morphine (ER) 15 MG TAB PO SCH ×2 (09:33→20:31)
--- NOTE | 2016-05-09 12:34 | PN ---
Date/Time of Note Date/Time of Note DATE: 05/09/16 TIME: 12:31 Assessment/Plan VTE Prophylaxis VTE Prophylaxis Intervention: SCD's Lines/Catheters IV Catheter Type (from Nrsg): PICC Line Central line still needed: Yes Urinary Cath still in place: Yes Reason Cath still needed: other (indicate) Assessment/Plan Assessment/Plan 1. EFFERVESCENT SALTS COMPOUNDER shunt dysfunction, s/p left EFFERVESCENT SALTS COMPOUNDER shunt 04/26/2016, shunt was adjusted by neurosurgery on 04/29/2016, s/p left VPS externalization and placement of EVD on 05/01/2016, plan for left VPS next week 2. History of spina bifida with quadriplegia 3. History of hydrocephalus status post V-P shunt with multiple revisions 4. Chronic pain syndrome.on pain management 5. Right chest cellulitis with retained foreign body, likely previous peritoneal catheter. follow up with ID Subjective 24 Hr Interval Summary Free Text/Dictation less headache. afebrile Exam/Review of Systems Vital Signs Vitals Vital Signs Date Time Temp Pulse Resp B/P Pulse Ox O2 Delivery O2 Flow Rate FiO2 05/09/16 10:00 94 21 113/59 87 05/09/16 09:00 Room Air 05/09/16 07:00 98.4 05/07/16 10:00 1.0 Intake and Output 05/08/16 05/08/16 05/09/16 15:00 23:00 07:00 Intake Total 680 ml 620 ml 0 ml Output Total 780 ml 746 ml 1204 ml Balance -100 ml -126 ml -1204 ml Exam Constitutional: alert, oriented, well developed Psych: nl mood/affect, no complaints Head: normocephalic Eyes: EOMI, PERRL, nl conjunctiva, nl lids ENMT: nl external ears & nose, nl lips & teeth, nl nasal mucosa & septum Neck: jvd, non-tender, supple Respiratory: clear to auscultation, normal air movement, No congested cough, No crackles/rales, No diminished breath sounds, No intercostal retraction, No labored breathing, No other, No respirations, No tactile fremitus, No wheezing Cardiovascular: nl pulses, regular rate and rhythm, No S3, No S4, No bruits, No diastolic murmur, No edema, No gallop, No irregular rhythm, No jugular venous distention (JVD), No murmurs/extra sounds, No other, No rub, No systolic murmur Gastrointestinal: nl liver, spleen, non-tender, soft, No ascites, No bowel sounds, No distended, No firm, No hepatomegaly, No mass , No other, No rebound or guarding, No splenomegaly, No surgical scars, No tender Musculoskeletal: nl extremities to inspection Extremities: normal pulses, No calf tenderness, No clubbing, No cyanosis, No edema, No palpable cord, No pitting pedal edema, No tenderness Neurological: GAS STATION SERVICE ATTENDANT II-XII intact, nl mental status, nl speech, nl strength Results Result Diagram: 05/07/1652405/07/16 05 Results 24 hrs Laboratory Tests Test 05/08/16 18:00 05/09/16 05:35 CSF Appearance HAZY BLOODY CSF Cell Count Tube # TUBE#1 TUBE#4 CSF Color RED PINKISH CSF Crenated Cells 0 10 CSF Glucose 46 L 49 L CSF Lymphocytes % 40 33 CSF Monocytes % 20 20 CSF Neutrophils % 40 46 CSF RBC 6617 H 5250 H CSF Total Cells Counted 100 13 CSF Total Protein 160 H 93 H CSF Tubes Submitted 1 4 CSF Volume 25.0 14.0 CSF WBC 15 *H 13 *H CSF Basophils % 0 CSF Eosinophils % 1 CSF Other Cells % 0 Medications Medications Current Medications Ondansetron HCl (Zofran Inj) 4 mg Q6H PRN IV NAUSEA AND/OR VOMITING Last administered on 04/30/16 16:47; Admin Dose 4 MG; Start 04/18/16 at 20:30 Docusate Sodium (Colace) 100 mg Q12H PRN PO CONSTIPATION; Start 04/19/16 at 10: 30 Bisacodyl (Dulcolax) 5 mg DAILY PRN PO CONSTIPATION; Start 04/19/16 at 10:30 Bisacodyl (Dulcolax Supp) 10 mg DAILY PRN [place] CONSTIPATION; Start 04/19/16 at 10 :30 Senna/Docusate Sodium (Senokot-S) 2 tab HS PO Last administered on 05/08/16 21: 18; Admin Dose 2 TAB; Start 04/20/16 at 21:00 Hydralazine HCl 5 mg 5 mg Q6H PRN IV sbp above 160 Last administered on 18:39; Admin Dose 5 MG; Start 04/26/16 at 15:00 Linezolid 300 ml @ 300 mls/hr Q12 IVPB Last administered on 05/09/16 09:31; Admin Dose 300 MLS/HR; Start 05/01/16 at 15:30 Meropenem (Merrem 1 Gm/100 ml (Pmx)) 100 ml @ 200 mls/hr Q12 IVPB Last administered on 05/09/16 09:33; Admin Dose 200 MLS/HR; Start 05/01/16 at 16:00 IV Flush (NS 10 ml) 10 ml PRN PRN IV IV PROTOCOL; Start 05/01/16 at 16:30 Morphine Sulfate (Ms Contin (Er)) 15 mg BID PO Last administered on 05/09/16 09 :33; Admin Dose 15 MG; Start 05/06/16 at 21:00 Hydromorphone HCl (Dilaudid) 2 mg Q4H PRN IV PAIN Last administered on 07:24; Admin Dose 2 MG; Start 05/06/16 at 18:05 ZI ROTHMAN MD May 09, 2016 12:33
--- NOTE | 2016-05-09 16:27 | PN ---
DATE: 05/09/2016 SUBJECTIVE: No acute changes. No fevers. The patient is awake, lying comfortably in bed. He had an episode of emesis this morning, now denies nausea. MICROBIOLOGY: Cultures have been negative so far. INDWELLINGS: Ventriculostomy, Gonzalez, PICC line. ANTIMICROBIALS: 1. Zyvox. 2. Merrem. PHYSICAL EXAMINATION: GENERAL: This is a morbidly obese, young man who is lying comfortably in bed. HEENT: Head atraumatic, normocephalic. Sclerae anicteric. Buccal mucosa dry. NECK: Obese. CHEST: Rise symmetrical. Breath sounds diminished to bases. HEART: S1, S2. ABDOMEN: Obese, soft, bowel sounds present. EXTREMITIES: Without cyanosis. ASSESSMENT: 1. Status post sepsis. 2. Ventriculoperitoneal shunt dysfunction status post revision and then externalization, new EQUIPMENT OPERATOR/LABORER/SUPERVISOR jamey nt on hold secondary to retained foreign body during procedure. 3. Status post vancomycin-resistant enterococci urinary tract infection. 4. Morbid obesity. 5. Spina bifida. PLAN: Remains stable. Continue present care. Continue on current antimicrobials. Follow neurosur gical recommendations. Dictated By: PAT RODRIGUEZ FURNITURE DELIVERY DRIVER for DIAN AVILA/BRADY Conf#: [id number] DID#: [id number]
[2016-05-09] MEDS: SENNA/DOCUSATE NA (8.6MG/50MG) TAB PO SCH (20:31)
[2016-05-10] VITALS (31 sets, daily range): BP systolic 90–142; BP diastolic 49–111; PULSE 71–104; RESP 11–22
[2016-05-10] MEDS: HYDROmorphONE 2 MG/ML SYG IV PRN ×7 (00:58→22:34)
[2016-05-10 07:04] LABS: GLUCOSE,CSF 48 mg/dl (50-80)
[2016-05-10] MEDS: MEROPENEM 1 GM/100 ML (PMX) 100 ML IVPB SCH ×2 (08:31→21:07)
[2016-05-10] MEDS: morphine (ER) 15 MG TAB PO SCH ×2 (08:31→21:07)
[2016-05-10] MEDS: LINEZOLID 600 MG/D5W (PMX) 300 ML IVPB SCH (08:31)
[2016-05-10 09:33] LABS: CSF COLOR PINKISH; CSF#TUBES REC'D 4
[2016-05-10 09:34] LABS: CSF#TUBE COUNT TUBE#4
[2016-05-10 09:36] LABS: # OF CELLS COUNTED 21; CSF BASOPHIL 0 %; CSF EOSINOPHIL 5 %
--- NOTE | 2016-05-10 10:13 | CONS ---
Date/Time of Note Date/Time of Note DATE: 05/10/16 TIME: 10:10 Assessment/Plan Assessment/Plan Chief Complaint/Hosp Course Very pleasant 26 y/o male with pmh: Spina Bifida, depression, chronic headaches with hydrocephalus. Pt had VPS placement as a child but most recently underwent multiple bilateral MEDICAL CLAIMS SPECIALIST (Abd/Pleural) shunt placements with Dr. Triplett starting 2008 and most recent left vps revision was performed at [facility] by Dr. Triplett as well. Pt presents with bifrontal HAs. Per Dr. Triplett's notes states possible non functioning left vps due to "scarring in the peritoneal cavity not allowing enough surface for CSF absorption area." Dr. Triplett / Dr. Castelan (partner) did not feel comfortable performing ventricular atrial shunt and transfer was then requested. pmh/psx: per hpi/chart meds: see med recon ros: per hpi/chart Problems: Additional Assessment/Plan shunt malfunction s/p Left EVD placement Attempted recent right VPS placement. However,right chest (inferior to clavicle level) showed inflammation and infectious process. Old catheter protruding out of skin. Wound cultures GNR. Currently on antibx plan drsg change to wound TID EVD as ordered If cleared with ID , will plan for right VPS Friday or Friday next week. Consultation Date/Type/Reason Admit Date/Time Apr 18, 2016 at 18:55 Initial Consult Date 04/19/16 Type of Consultation: ID 24 HR Interval Summary Free Text/Dictation S: NAD ICP stable EVD draining well Exam/Review of Systems Vital Signs Vitals Vital Signs Date Time Temp Pulse Resp B/P Pulse Ox O2 Delivery O2 Flow Rate FiO2 05/10/16 06:00 81 17 117/69 87 05/10/16 05:00 98.3 05/09/16 16:00 Room Air 05/07/16 10:00 1.0 Intake and Output 05/09/16 05/09/16 05/10/16 15:00 23:00 07:00 Intake Total 400 ml 200 ml Output Total 990 ml 428 ml 310 ml Balance -590 ml -228 ml -310 ml Exam Neurological: other (MS: AAOX4 CN: PERRL M: 5/5 bilat UE, 0/5 LE ) Results Result Diagram: 05/07/1625 05/07/16 0525 Results 24 hrs Laboratory Tests Test 2/10/17 05:00 CSF Appearance BLOODY CSF Basophils % 0 CSF Cell Count Tube # TUBE#4 CSF Color PINKISH CSF Crenated Cells CSF Eosinophils % 5 CSF Glucose 48 L CSF Lymphocytes % 38 CSF Monocytes % 19 CSF Neutrophils % 38 CSF RBC 22773 H CSF Total Cells Counted 21 CSF Total Protein 144 H CSF Tubes Submitted 4 CSF Volume 10.0 CSF WBC 21 *H Medications Medications Current Medications Ondansetron HCl (Zofran Inj) 4 mg Q6H PRN IV NAUSEA AND/OR VOMITING Last administered on 04/30/16 16:47; Admin Dose 4 MG; Start 04/18/16 at 20:30 Docusate Sodium (Colace) 100 mg Q12H PRN PO CONSTIPATION; Start 04/19/16 at 10: 30 Bisacodyl (Dulcolax) 5 mg DAILY PRN PO CONSTIPATION; Start 04/19/16 at 10:30 Bisacodyl (Dulcolax Supp) 10 mg DAILY PRN [place] CONSTIPATION; Start 04/19/16 at 10 :30 Senna/Docusate Sodium (Senokot-S) 2 tab HS PO Last administered on 05/09/16 20: 31; Admin Dose 2 TAB; Start 04/20/16 at 21:00 Hydralazine HCl 5 mg 5 mg Q6H PRN IV sbp above 160 Last administered on 18:39; Admin Dose 5 MG; Start 04/26/16 at 15:00 Linezolid 300 ml @ 300 mls/hr Q12 IVPB Last administered on 05/10/16 08:31; Admin Dose 300 MLS/HR; Start 05/01/16 at 15:30 Meropenem (Merrem 1 Gm/100 ml (Pmx)) 100 ml @ 200 mls/hr Q12 IVPB Last administered on 05/10/16 08:31; Admin Dose 200 MLS/HR; Start 05/01/16 at 16:00 IV Flush (NS 10 ml) 10 ml PRN PRN IV IV PROTOCOL; Start 05/01/16 at 16:30 Morphine Sulfate (Ms Contin (Er)) 15 mg BID PO Last administered on 05/10/16 08:31; Admin Dose 15 MG; Start 05/06/16 at 21:00 Hydromorphone HCl (Dilaudid) 2 mg Q4H PRN IV PAIN Last administered on t 05:36; Admin Dose 2 MG; Start 05/06/16 at 18:05 ALEX MOTA NP May 10, 2016 10:13
[2016-05-10] MEDS ORDERED: VANCOMYCIN IV PER PHARMACY XX SCH (12:00)
--- NOTE | 2016-05-10 12:10 | PN ---
DATE: 05/10/2016 INFECTIOUS DISEASE PROGRESS NOTE SUBJECTIVE: Patient is alert, feels good. Denies pain, no fevers. Vital signs stable. No labs th is morning, CSF white blood cell count 21, glucose 48, protein 144. MICROBIOLOGY: CSF cultures have been negative. The cultures of the chest wound grew gram-negative r ods and staph species. ANTIMICROBIALS: 1. Merrem. 2. Zyvox. INDWELLINGS: Ventriculostomy, Gonzalez, PICC line. PHYSICAL EXAMINATION: GENERAL: This is a morbidly obese young man who is lying comfortably in bed. HEENT: Head atraumatic, normocephalic. Sclerae anicteric. Buccal mucosa dry. NECK: Supple, trachea midline. CHEST: Rise symmetrical. Breath sounds diminished. HEART: S1, S2. ABDOMEN: Soft, bowel tones present. EXTREMITIES: Without cyanosis. ASSESSMENT 1. Sepsis, resolving. 2. Resolving encephalopathy. 3. BURLAP SPREADER shunt malfunction, status post externalization with ventriculostomy placement. 4. Status post VRE urinary tract infection. 5. Morbid obesity. 6. History of spina bifida. PLAN: The patient remains stable, new BURLAP SPREADER shunt on hold secondary to right chest infectious process with an evidence of old catheter protruding out of skin and cultures growing gram-negative rods and staph species. We will change Zyvox to vancomycin. Continue patient on meropenem. Await for final cultures. Follow neurosurgical recommendations. Dictated By: PAT RODRIGUEZ IT PROGRAMMER for DIAN AVILA/BRADY Conf#: [id number] DID#: [id number]
--- NOTE | 2016-05-10 12:16 | PN ---
Date/Time of Note Date/Time of Note DATE: 05/10/16 TIME: 12:13 Assessment/Plan VTE Prophylaxis VTE Prophylaxis Intervention: SCD's Lines/Catheters IV Catheter Type (from Nrsg): PICC Line Central line still needed: Yes Urinary Cath still in place: Yes Reason Cath still needed: other (indicate) Assessment/Plan Assessment/Plan 1. POWER PLANT OPERATORS SUPERVISOR shunt dysfunction, s/p left POWER PLANT OPERATORS SUPERVISOR shunt 04/26/2016, shunt was adjusted by neurosurgery on 04/29/2016, s/p left VPS externalization and placement of EVD on 05/01/2016, plan for left VPS next week if ok with ID 2. History of spina bifida with quadriplegia 3. History of hydrocephalus status post V-P shunt with multiple revisions 4. Chronic pain syndrome.on pain management 5. Right chest cellulitis with retained foreign body, likely previous peritoneal catheter. on antibiotics, follow up with ID Subjective 24 Hr Interval Summary Free Text/Dictation afebrile. headache Exam/Review of Systems Vital Signs Vitals Vital Signs Date Time Temp Pulse Resp B/P Pulse Ox O2 Delivery O2 Flow Rate FiO2 05/10/16 12:00 98.0 77 15 118/49 92 05/09/16 16:00 Room Air 05/07/16 10:00 1.0 Intake and Output 05/09/16 05/09/16 05/10/16 15:00 23:00 07:00 Intake Total 400 ml 200 ml Output Total 990 ml 428 ml 310 ml Balance -590 ml -228 ml -310 ml Exam Constitutional: alert, oriented, well developed Psych: nl mood/affect, no complaints Head: normocephalic, other (EVD on left) Eyes: EOMI, PERRL, nl conjunctiva, nl lids ENMT: nl external ears & nose, nl lips & teeth, nl nasal mucosa & septum Neck: non-tender, supple Respiratory: clear to auscultation, normal air movement Cardiovascular: nl pulses, regular rate and rhythm, No S3, No S4, No bruits, No diastolic murmur, No edema, No gallop, No irregular rhythm, No jugular venous distention (JVD), No murmurs/extra sounds, No other, No rub, No systolic murmur Gastrointestinal: nl liver, spleen, non-tender, soft, No ascites, No bowel sounds, No distended, No firm, No hepatomegaly, No mass , No other, No rebound or guarding, No splenomegaly, No surgical scars, No tender Musculoskeletal: nl extremities to inspection Extremities: normal pulses, No calf tenderness, No clubbing, No cyanosis, No edema, No other, No palpable cord, No pitting pedal edema, No tenderness Neurological: PHYSICIAN ADVISOR II-XII intact, nl mental status, nl speech, nl strength Skin: nl turgor, rash or lesions Lymph: nl lymph nodes Results Result Diagram: 05/07/1652405/07/16524 Results 24 hrs Laboratory Tests Test 05/10/16 05:00 CSF Appearance BLOODY CSF Basophils % 0 CSF Cell Count Tube # TUBE#4 CSF Color PINKISH CSF Crenated Cells CSF Eosinophils % 5 CSF Glucose 48 L CSF Lymphocytes % 38 CSF Monocytes % 19 CSF Neutrophils % 38 CSF RBC 45719 H CSF Total Cells Counted 21 CSF Total Protein 144 H CSF Tubes Submitted 4 CSF Volume 10.0 CSF WBC 21 *H Medications Medications Current Medications Ondansetron HCl (Zofran Inj) 4 mg Q6H PRN IV NAUSEA AND/OR VOMITING Last administered on 04/30/16 16:47; Admin Dose 4 MG; Start 04/18/16 at 20:30 Docusate Sodium (Colace) 100 mg Q12H PRN PO CONSTIPATION; Start 04/19/16 at 10: 30 Bisacodyl (Dulcolax) 5 mg DAILY PRN PO CONSTIPATION; Start 04/19/16 at 10:30 Bisacodyl (Dulcolax Supp) 10 mg DAILY PRN [place] CONSTIPATION; Start 04/19/16 at 10 :30 Senna/Docusate Sodium (Senokot-S) 2 tab HS PO Last administered on 05/09/16 20: 31; Admin Dose 2 TAB; Start 04/20/16 at 21:00 Hydralazine HCl 5 mg 5 mg Q6H PRN IV sbp above 160 Last administered on 18:39; Admin Dose 5 MG; Start 04/26/16 at 15:00 Meropenem (Merrem 1 Gm/100 ml (Pmx)) 100 ml @ 200 mls/hr Q12 IVPB Last administered on 05/10/16 08:31; Admin Dose 200 MLS/HR; Start 05/01/16 at 16:00 IV Flush (NS 10 ml) 10 ml PRN PRN IV IV PROTOCOL; Start 05/01/16 at 16:30 Morphine Sulfate (Ms Contin (Er)) 15 mg BID PO Last administered on 05/10/16t 08:31; Admin Dose 15 MG; Start 05/06/16 at 21:00 Hydromorphone HCl (Dilaudid) 2 mg Q3H PRN IV PAIN; Start 05/10/16 at 12:00 ZI ROTHMAN MD May 10, 2016 12:16
[2016-05-10] MEDS ORDERED: VANCOMYCIN 2 GM in SOD CHLORIDE 0.9% 500 ML IVPB ONE (14:00)
[2016-05-10] MEDS: NEOMYC/POLYMYX/BACIT 30 GM OINT TOP SCH ×2 (18:28→21:08)
[2016-05-10] MEDS ORDERED: NEOMYC/POLYMYX/BACIT 30 GM OINT TOP SCH (21:00)
[2016-05-10] MEDS: SENNA/DOCUSATE NA (8.6MG/50MG) TAB PO SCH (21:08)
[2016-05-11] VITALS (32 sets, daily range): BP systolic 92–144; BP diastolic 49–98; PULSE 64–98; RESP 11–29
[2016-05-11] MEDS: HYDROmorphONE 2 MG/ML SYG IV PRN ×8 (01:34→23:30)
[2016-05-11] MEDS: VANCOMYCIN 1.5 GM in SOD CHLORIDE 0.9% 250 ML IVPB SCH ×2 (02:44→13:32)
[2016-05-11 04:55] LABS: CREATININE 0.45 mg/dl (0.61-1.24)
[2016-05-11 08:07] LABS: # OF CELLS COUNTED 100
[2016-05-11] MEDS: MEROPENEM 1 GM/100 ML (PMX) 100 ML IVPB SCH ×2 (08:31→20:52)
[2016-05-11] MEDS: morphine (ER) 15 MG TAB PO SCH ×2 (08:33→20:52)
[2016-05-11] MEDS: NEOMYC/POLYMYX/BACIT 30 GM OINT TOP SCH ×3 (09:00→20:53)
[2016-05-11 09:09] LABS: CSF COLOR PINKISH; CSF#TUBES REC'D 1
[2016-05-11 09:10] LABS: CSF#TUBE COUNT TUBE#1
[2016-05-11 09:28] LABS: GLUCOSE,CSF 49 mg/dl (50-80)
--- NOTE | 2016-05-11 10:23 | CONS ---
Date/Time of Note Date/Time of Note DATE: 05/11/16 TIME: 10:22 Assessment/Plan Assessment/Plan Chief Complaint/Hosp Course ID PROGRESS NOTE TOTAL ABX DAY # Vanco IV + Merrem 24H INTERVAL SUMMARY * A/A/O -- responsive, no new issues, no c/o doing "OK" * Ventric left temporal area intact * RETAINED catheter from chest removed per notes (+)Purulent with micro preliminary * WOUND CULTURE Preliminary Organism 1 GRAM NEGATIVE ISREAL QUANTITY RARE Organism 2 STAPHYLOCOCCUS SPECIES QUANTITY SCANT GROWTH PHYSICAL EXAMINATION: GENERAL: VSS, NAD HEENT: Unremarkable NECK: Trach CHEST: Rise symmetrical - Course BS HEART: RRR ABDOMEN: Soft, EXTREMITIES: Warm, ID ASSESSMENT: 26 yo morbid obese M w/PMHx Spina Bifida admit with: 1. Sepsis, resolving. 2. Resolving encephalopathy. 3. VIBRATOR OPERATOR shunt malfunction, status post externalization with ventriculostomy placement. 4. Status post VRE urinary tract infection. 5. s/p Infected RETAINED catheter from chest removed per notes (+)purulent with micro preliminary * WOUND CULTURE Preliminary Organism 1 GRAM NEGATIVE ISREAL QUANTITY RARE Organism 2 STAPHYLOCOCCUS SPECIES QUANTITY SCANT GROWTH (-)MRSA Nares INVASIVES: *Ventric, PIV, FC ABX ALLERGIES: Latex, PCN, Cephalosporins CURRENT ABX: Vanco IV + Merrem ID RECOMMENDATIONS: Continue current ABX he is tolerating F/U final micro on removed infected chest catheter pending . Problems: Consultation Date/Type/Reason Admit Date/Time Apr 18, 2016 at 18:55 Initial Consult Date 04/19/16 Type of Consultation: ID Exam/Review of Systems Vital Signs Vitals Vital Signs Date Time Temp Pulse Resp B/P Pulse Ox O2 Delivery O2 Flow Rate FiO2 05/11/16 08:30 75 14 93/75 91 05/11/16 08:00 98.1 05/09/16 16:00 Room Air 05/07/16 10:00 1.0 Intake and Output 05/10/16 05/10/16 05/11/16 15:00 23:00 07:00 Intake Total 1180 ml 1070 ml 349.99 ml Output Total 549 ml 511 ml 549 ml Balance 631 ml 559 ml -199.01 ml Results Result Diagram: 05/07/16 0525 05/11/16 0400 Results 24 hrs Laboratory Tests Test 05/11/16 04:00 05/11/16 06:00 Blood Urea Nitrogen 20 Creatinine 0.45 L CSF Appearance HAZY CSF Cell Count Tube # TUBE#1 CSF Color PINKISH CSF Crenated Cells CSF Glucose 49 L CSF Lymphocytes % 44 CSF Monocytes % 11 CSF Neutrophils % 45 CSF RBC 6000 H CSF Total Cells Counted 100 CSF Total Protein 114 H CSF Tubes Submitted 1 CSF Volume 5.0 CSF WBC 9 Medications Medications Current Medications Ondansetron HCl (Zofran Inj) 4 mg Q6H PRN IV NAUSEA AND/OR VOMITING Last administered on 04/30/16 16:47; Admin Dose 4 MG; Start 04/18/16 at 20:30 Docusate Sodium (Colace) 100 mg Q12H PRN PO CONSTIPATION; Start 04/19/16 at 10: 30 Bisacodyl (Dulcolax) 5 mg DAILY PRN PO CONSTIPATION; Start 04/19/16 at 10:30 Bisacodyl (Dulcolax Supp) 10 mg DAILY PRN [place] CONSTIPATION; Start 04/19/16 at 10 :30 Senna/Docusate Sodium (Senokot-S) 2 tab HS PO Last administered on 05/10/16 21 :08; Admin Dose 2 TAB; Start 04/20/16 at 21:00 Hydralazine HCl 5 mg 5 mg Q6H PRN IV sbp above 160 Last administered on 18:39; Admin Dose 5 MG; Start 04/26/16 at 15:00 Meropenem (Merrem 1 Gm/100 ml (Pmx)) 100 ml @ 200 mls/hr Q12 IVPB Last administered on 05/11/16 08:31; Admin Dose 200 MLS/HR; Start 05/01/16 at 16:00 IV Flush (NS 10 ml) 10 ml PRN PRN IV IV PROTOCOL; Start 05/01/16 at 16:30 Morphine Sulfate (Ms Contin (Er)) 15 mg BID PO Last administered on 05/11/16 08:33; Admin Dose 15 MG; Start 05/06/16 at 21:00 Hydromorphone HCl 2 mg 2 mg Q3H PRN IV PAIN Last administered on 05/11/16 07: 39; Admin Dose 2 MG; Start 05/10/16 at 12:00 Vancomycin HCl/ Sodium Chloride (Vancocin/NS) 250 ml @ 83.333 mls/ hr Q12H IVPB Last administered on 05/11/16 02:44; Admin Dose 83.333 MLS/HR; Start 02/14 at 02:00 Neomycin/ Polymyxin/ Bacitracin (Neosporin Topical Oint) 1 applic TID TOP Last administered on 05/10/16 21:08; Admin Dose 1 APPLIC; Start 05/10/16 at 18:30 DALIA OCASIO NP May 11, 2016 10:23
--- NOTE | 2016-05-11 12:55 | PN ---
DATE: 05/11/2016 SUBJECTIVE: Chart reviewed. Events noted. Patient on room air, saturating 98% and does not appear in acute distress. PHYSICAL EXAMINATION: VITAL SIGNS: Blood pressure 119/72, pulse 73, respirations 14, temperature 98.1. HEENT: Pupils are equal and reactive to light. NECK: Supple. No JVD noted, no cervical adenopathy, no carotid bruits heard. LUNGS: Fair breath sounds bilaterally. CARDIOVASCULAR: S1, S2 normal. ABDOMEN: Soft, nontender. No organomegaly or masses noted. EXTREMITIES: No clubbing or cyanosis noted. NEUROLOGIC: No changes. LABORATORY: WBC 10.4, hemoglobin 11, hematocrit 33.8, platelets 403. IMPRESSION: 1. COUNSELING SERVICES MANAGER shunt dysfunction, status post placement; however, now scheduled for revision of COUNSELING SERVICES MANAGER shunt ear ly next week. 2. History of spina bifida with quadriplegia. 3. History of hydrocephalus, status post COUNSELING SERVICES MANAGER shunt, with multiple admissions in the past. 4. Chronic pain syndrome. 5. Right chest cellulitis, slowly improving. RECOMMENDATIONS: 1. Neurosurgical plans noted. 2. Continue antibiotics per ID. 3. Follow up labs. 4. Discussed with the staff. Dictated By: MICHELE LOVELL MD, MA/BRADY Conf#: [id number] DID#: [id number]
[2016-05-11] MEDS: SENNA/DOCUSATE NA (8.6MG/50MG) TAB PO SCH (20:53)
[2016-05-12] VITALS (40 sets, daily range): BP systolic 83–146; BP diastolic 55–86; PULSE 64–108; RESP 10–22
[2016-05-12] MEDS: HYDROmorphONE 2 MG/ML SYG IV PRN ×7 (02:16→21:23)
[2016-05-12] MEDS: VANCOMYCIN 1.5 GM in SOD CHLORIDE 0.9% 250 ML IVPB SCH ×2 (03:36→15:33)
[2016-05-12 04:40] LABS: # OF CELLS COUNTED 100
[2016-05-12 05:48] LABS: CSF COLOR PINKISH
[2016-05-12 05:49] LABS: CSF#TUBES REC'D 4
[2016-05-12 05:50] LABS: CSF#TUBE COUNT TUBE#4
[2016-05-12 07:34] LABS: GLUCOSE,CSF 48 mg/dl (50-80)
[2016-05-12] MEDS: MEROPENEM 1 GM/100 ML (PMX) 100 ML IVPB SCH ×2 (08:53→20:26)
[2016-05-12] MEDS: morphine (ER) 15 MG TAB PO SCH ×2 (08:54→20:25)
[2016-05-12] MEDS: NEOMYC/POLYMYX/BACIT 30 GM OINT TOP SCH ×3 (08:56→21:25)
[2016-05-12] MEDS: ALTEPLASE (CATHFLO) 2 MG INJ CATHETER PRN (10:04)
--- NOTE | 2016-05-12 10:38 | PN ---
DATE: 05/12/2016 INTERNAL MEDICINE PROGRESS NOTE SUBJECTIVE: Chart reviewed. No significant events noted. PICC line is clotted; therefore, blood w as not obtained for labs. OBJECTIVE: VITAL SIGNS: Blood pressure 109/71, pulse 86, respiration 14, temperature afebrile. He is saturati ng 95%. HEENT: Pupils are equal and reactive to light. NECK: Supple, no JVD noted, no cervical adenopathy noted, no carotid bruits heard. LUNGS: Diminished breath sounds at the bases. CARDIOVASCULAR: S1, S2 normal. ABDOMEN: Soft, nontender. No organomegaly or masses noted. EXTREMITIES: No clubbing or cyanosis noted. NEUROLOGICAL: Awake LABORATORY DATA: Pending. IMPRESSION: 1. MACHINE BOBBIN WINDER shunt dysfunction status post placement; however, now scheduled for revision no MACHINE BOBBIN WINDER shunt on . 2. History of spina bifida with quadriplegia. 3. History of hydrocephalus status post MACHINE BOBBIN WINDER shunt with multiple admissions in the past. 4. Chronic pain syndrome. 5. Right chest cellulitis. RECOMMENDATIONS: 1. Check labs. 2. Neurosurgical plans for revision of MACHINE BOBBIN WINDER shunt on Friday noted. 3. Continue antibiotics for now. 4. Discussed with staff. Dictated By: MICHELE LOVELL MD, MA/BRADY Conf#: [id number] DID#: [id number]
[2016-05-12 11:38] LABS: BASOPHILS % 0.4 % (0.0-2.0); EOSINOPHILS # 0.6 10^3/ul (0.0-0.5); EOSINOPHILS % 7.4 % (0.0-7.0); HEMATOCRIT 34.6 % (42.0-52.0); HEMOGLOBIN 11.3 g/dl (14.0-18.0); LYMPHOCYTES # 2.6 10^3/ul (0.8-2.9); LYMPHOCYTES % 32.5 % (15.0-51.0); MEAN CORPUSCULAR HEMOGLOBIN 27.8 pg (29.0-33.0); MEAN CORPUSCULAR HGB CONC 32.6 g/dl (32.0-37.0); MEAN CORPUSCULAR VOLUME 85.2 fl (82.0-101.0); MEAN PLATELET VOLUME 6.9 fl (7.4-10.4); MONOCYTE # 0.7 10^3/ul (0.3-0.9); MONOCYTES % 8.4 % (0.0-11.0); NEUTROPHIL # 4.1 10^3/ul (1.6-7.5); NEUTROPHILS % 51.3 % (39.0-77.0); PLATELET COUNT 353 10^3/UL (140-440); RED BLOOD COUNT 4.07 10^6/ul (4.70-6.10); RED CELL DISTRIBUTION WIDTH 15.9 % (11.5-14.5)
[2016-05-12 11:40] LABS: CONDITION 1; LH ANALYZER COMMENTS 1; POTASSIUM 3.7 mmol/L (3.5-5.1)
[2016-05-12 11:43] LABS: CALCIUM 9.2 mg/dl (8.4-10.2); CREATININE 0.41 mg/dl (0.61-1.24)
--- NOTE | 2016-05-12 11:43 | CONS ---
Date/Time of Note Date/Time of Note DATE: 05/12/16 TIME: 11:41 Assessment/Plan Assessment/Plan Chief Complaint/Hosp Course ID PROGRESS NOTE TOTAL ABX DAY # Vanco IV + Merrem 24H INTERVAL SUMMARY * Clincally stable w/external ventric DSG C/D/I -> CSF cultures (-) to date * A/A/O -- responsive, no new issues, no c/o doing "OK" * RETAINED catheter from chest removed per notes (+)Purulent with micro preliminary * WOUND CULTURE Preliminary Karin: 05/07/16-1317 Rcvd: 05/07/16-1354 Source: CHEST Sp Descrip: Microbiology WOUND CULTURE Preliminary Organism 1 GRAM NEGATIVE ISREAL QUANTITY RARE Organism 2 COAGULASE NEGATIVE STAPH QUANTITY SCANT GROWTH COAG NEG M.I.C. RX --------- --- CEFAZOLIN R CIPROFLOXACIN >=8 R CLINDAMYCIN >=8 R DOXYCYCLINE S ERYTHROMYCIN >=8 R LEVOFLOXACIN >=8 R OXACILLIN >=4 R PENICILLIN-G >=0.5 R RIFAMPIN <=0.5 S VANCOMYCIN 1 S TRIMETHOPRIM/SULFAMETHOXAZOLE 160 R PHYSICAL EXAMINATION: GENERAL: VSS, NAD HEENT: Unremarkable NECK: Trach CHEST: Rise symmetrical - Course BS HEART: RRR ABDOMEN: Soft, EXTREMITIES: Warm, ID ASSESSMENT: 26 yo morbid obese M w/PMHx Spina Bifida admit with: 1. Sepsis, resolving. 2. Resolving encephalopathy. 3. ETL DEVELOPER shunt malfunction, status post externalization with ventriculostomy placement. 4. Status post VRE urinary tract infection. 5. s/p Infected RETAINED catheter from chest removed per notes (+)purulent with micro preliminary * WOUND CULTURE Preliminary Organism 1 GRAM NEGATIVE ISREAL QUANTITY RARE Organism 2 COAGULASE NEGATIVE STAPH QUANTITY SCANT GROWTH (-)MRSA Nares INVASIVES: *Ventric, PIV, FC ABX ALLERGIES: Latex, PCN, Cephalosporins CURRENT ABX: Vanco IV + Merrem ID RECOMMENDATIONS: Continue current ABX he is tolerating F/U final micro on removed infected chest catheter pending WOUND CULTURE Preliminary Organism 1 GRAM NEGATIVE ISREAL QUANTITY RARE Organism 2 COAGULASE NEGATIVE STAPH QUANTITY SCANT GROWTH . . Problems: Consultation Date/Type/Reason Admit Date/Time Apr 18, 2016 at 18:55 Initial Consult Date 04/19/16 Type of Consultation: ID Exam/Review of Systems Vital Signs Vitals Vital Signs Date Time Temp Pulse Resp B/P Pulse Ox O2 Delivery O2 Flow Rate FiO2 05/12/16 09:00 86 11 109/71 95 05/12/16 08:00 98.4 05/09/16 16:00 Room Air Intake and Output 05/11/16 05/11/16 05/12/16 15:00 23:00 07:00 Intake Total 100 ml 710 ml 249.9 ml Output Total 699 ml 522 ml 575 ml Balance -599 ml 188 ml -325.1 ml Results Result Diagram: 05/11/16 0400 Results 24 hrs Laboratory Tests Test 05/12/16 00:50 05/12/16 04:20 Vancomycin Level Trough 15.2 CSF Appearance HAZY CSF Cell Count Tube # TUBE#4 CSF Color PINKISH CSF Crenated Cells CSF Glucose 48 L CSF Lymphocytes % 43 CSF Monocytes % 14 CSF Neutrophils % 43 CSF RBC 6000 H CSF Total Cells Counted 100 CSF Total Protein 97 H CSF Tubes Submitted 4 CSF Volume 21.0 CSF WBC 7 Medications Medications Current Medications Ondansetron HCl (Zofran Inj) 4 mg Q6H PRN IV NAUSEA AND/OR VOMITING Last administered on 04/30/16 16:47; Admin Dose 4 MG; Start 04/18/16 at 20:30 Docusate Sodium (Colace) 100 mg Q12H PRN PO CONSTIPATION; Start 04/19/16 at 10: 30 Bisacodyl (Dulcolax) 5 mg DAILY PRN PO CONSTIPATION; Start 04/19/16 at 10:30 Bisacodyl (Dulcolax Supp) 10 mg DAILY PRN [place] CONSTIPATION; Start 04/19/16 at 10 :30 Senna/Docusate Sodium (Senokot-S) 2 tab HS PO Last administered on 05/11/16 20 :53; Admin Dose 2 TAB; Start 04/20/16 at 21:00 Hydralazine HCl 5 mg 5 mg Q6H PRN IV sbp above 160 Last administered on 18:39; Admin Dose 5 MG; Start 04/26/16 at 15:00 Meropenem (Merrem 1 Gm/100 ml (Pmx)) 100 ml @ 200 mls/hr Q12 IVPB Last administered on 05/12/16 08:53; Admin Dose 200 MLS/HR; Start 05/01/16 at 16:00 IV Flush (NS 10 ml) 10 ml PRN PRN IV IV PROTOCOL; Start 05/01/16 at 16:30 Morphine Sulfate (Ms Contin (Er)) 15 mg BID PO Last administered on 05/12/16 08:54; Admin Dose 15 MG; Start 05/06/16 at 21:00 Hydromorphone HCl 2 mg 2 mg Q3H PRN IV PAIN Last administered on 05/12/16 08: 31; Admin Dose 2 MG; Start 05/10/16 at 12:00 Vancomycin HCl/ Sodium Chloride (Vancocin/NS) 250 ml @ 83.333 mls/ hr Q12H IVPB Last administered on 05/12/16 03:36; Admin Dose 83.333 MLS/HR; Start 02/14 at 02:00 Neomycin/ Polymyxin/ Bacitracin 1 applic 1 applic TID TOP Last administered on 05/12/16 08:56; Admin Dose 1 APPLIC; Start 05/10/16 at 18:30 Sodium Chloride (NS) 1,000 ml @ 75 mls/hr [id number] IV ; Start 05/13/16 at 01:00 DALIA OCASIO NP May 12, 2016 11:43
[2016-05-12 11:44] LABS: MAGNESIUM 1.3 mg/dl (1.7-2.5)
[2016-05-12 15:51] LABS: INR 1.03; PROTIME 13.5 Sec (12.2-14.2); PT RATIO 1.1
[2016-05-12 15:52] LABS: PARTIAL THROMBOPLASTIN TIME 35.4 Sec (25.0-35.0)
[2016-05-12] MEDS: SENNA/DOCUSATE NA (8.6MG/50MG) TAB PO SCH (20:25)
[2016-05-13] VITALS (29 sets, daily range): BP systolic 100–148; BP diastolic 53–116; PULSE 62–105; RESP 12–22
[2016-05-13] MEDS: HYDROmorphONE 2 MG/ML SYG IV PRN ×8 (00:29→22:59)
[2016-05-13] MEDS: SOD CHLORIDE 0.9% 1,000 ML IV SCH ×3 (00:29→22:15)
[2016-05-13] MEDS: VANCOMYCIN 1.5 GM in SOD CHLORIDE 0.9% 250 ML IVPB SCH ×2 (02:12→13:39)
[2016-05-13] MEDS: ALTEPLASE (CATHFLO) 2 MG INJ CATHETER PRN (02:15)
[2016-05-13 08:48] LABS: BASOPHILS % 0.3 % (0.0-2.0); EOSINOPHILS # 0.7 10^3/ul (0.0-0.5); EOSINOPHILS % 6.7 % (0.0-7.0); HEMATOCRIT 34.1 % (42.0-52.0); HEMOGLOBIN 11.3 g/dl (14.0-18.0); LYMPHOCYTES # 3.2 10^3/ul (0.8-2.9); LYMPHOCYTES % 31.9 % (15.0-51.0); MEAN CORPUSCULAR HGB CONC 33.1 g/dl (32.0-37.0); MEAN CORPUSCULAR VOLUME 84.6 fl (82.0-101.0); MEAN PLATELET VOLUME 6.9 fl (7.4-10.4); MONOCYTE # 0.8 10^3/ul (0.3-0.9); MONOCYTES % 8.4 % (0.0-11.0); NEUTROPHIL # 5.2 10^3/ul (1.6-7.5); NEUTROPHILS % 52.7 % (39.0-77.0); PLATELET COUNT 335 10^3/UL (140-440); RED BLOOD COUNT 4.03 10^6/ul (4.70-6.10); RED CELL DISTRIBUTION WIDTH 15.6 % (11.5-14.5); UNCORRECTED WBC 9.9 10^3/ul (4.8-10.8); WHITE BLOOD COUNT 9.9 10^3/ul (4.8-10.8)
[2016-05-13] MEDS: morphine (ER) 15 MG TAB PO SCH ×2 (09:00→22:15)
[2016-05-13] MEDS: OXYBUTYNIN 5 MG TAB PO SCH ×3 (09:00→21:38)
[2016-05-13 09:04] LABS: CONDITION 1; LH ANALYZER COMMENTS 1
[2016-05-13 09:07] LABS: POTASSIUM 3.9 mmol/L (3.5-5.1)
[2016-05-13 09:09] LABS: CREATININE 0.39 mg/dl (0.61-1.24)
[2016-05-13 09:10] LABS: CALCIUM 9.2 mg/dl (8.4-10.2); MAGNESIUM 1.1 mg/dl (1.7-2.5)
[2016-05-13] MEDS: MEROPENEM 1 GM/100 ML (PMX) 100 ML IVPB SCH (09:39)
[2016-05-13] MEDS: NEOMYC/POLYMYX/BACIT 30 GM OINT TOP SCH ×3 (09:39→21:00)
[2016-05-13] MEDS ORDERED: POLYMYXIN/BACITRACIN 1L IRRIG ONE (09:53)
[2016-05-13] MEDS ORDERED: LIDOCAINE 2% (SDV) 5 ML INJ ONE (09:56)
[2016-05-13] MEDS ORDERED: PROPOFOL 20 ML ONE (09:56)
[2016-05-13] MEDS ORDERED: MAGNESIUM SULFATE 2 GM/50 ML 50 ML IVPB ONE (10:00)
--- NOTE | 2016-05-13 10:36 | PN ---
Date/Time of Note Date/Time of Note DATE: 05/13/16 TIME: 10:32 Subjective 24 Hr Interval Summary Subjective hx not possible: pt critical (S: NPO since mn, no change since previous exam. HAs improving), other (S: NPO) Exam/Review of Systems Vital Signs Vitals Vital Signs Date Time Temp Pulse Resp B/P Pulse Ox O2 Delivery O2 Flow Rate FiO2 05/13/16 08:00 92 05/13/16 06:30 20 136/77 99 05/13/16 06:00 Room Air 05/13/16 04:00 98.1 Intake and Output 05/12/16 05/12/16 05/13/16 15:00 23:00 07:00 Intake Total 520 ml 969.99 ml 430 ml Output Total 343 ml 179 ml 63 ml Balance 177 ml 790.99 ml 367 ml Exam Neurological: other (MS: AAOX4 CN: PERRL M: FC bilat UE/ 0/5 LE ) Results Result Diagram: 05/13/16 0835 05/13/16 0835 Results 24 hrs Laboratory Tests Test 05/12/16 11:00 05/13/16 08:35 Activated Partial Thromboplast Time 35.4 H Anion Gap 15 14 Basophils # 0.0 0.0 Basophils % 0.4 0.3 Blood Morphology Comment Blood Urea Nitrogen 16 19 Calcium Level 9.2 9.2 Carbon Dioxide Level 30 28 Chloride Level 99 102 Creatinine 0.41 L 0.39 L Eosinophils # 0.6 H 0.7 H Eosinophils % 7.4 H 6.7 Glucose Level 121 89 Hematocrit 34.6 L 34.1 L Hemoglobin 11.3 L 11.3 L INR International Normalized Ratio 1.03 Lymphocytes # 2.6 3.2 H Lymphocytes % 32.5 31.9 Magnesium Level 1.3 L 1.1 L Mean Corpuscular Hemoglobin 27.8 L 28.0 L Mean Corpuscular Hemoglobin Concent 32.6 33.1 Mean Corpuscular Volume 85.2 84.6 Mean Platelet Volume 6.9 L 6.9 L Monocytes # 0.7 0.8 Monocytes % 8.4 8.4 Neutrophils # 4.1 5.2 Neutrophils % 51.3 52.7 Nucleated Red Blood Cells # 0.0 0.0 Nucleated Red Blood Cells % 0.0 0.0 Platelet Count 353 335 Potassium Level 3.7 3.9 Prothrombin Time 13.5 Prothrombin Time Ratio 1.1 Red Blood Count 4.07 L 4.03 L Red Cell Distribution Width 15.9 H 15.6 H Sodium Level 140 140 White Blood Count 8.0 # 9.9 # Medications Medications Current Medications Ondansetron HCl (Zofran Inj) 4 mg Q6H PRN IV NAUSEA AND/OR VOMITING Last administered on 04/30/16 16:47; Admin Dose 4 MG; Start 04/18/16 at 20:30 Docusate Sodium (Colace) 100 mg Q12H PRN PO CONSTIPATION; Start 04/19/16 at 10: 30 Bisacodyl (Dulcolax) 5 mg DAILY PRN PO CONSTIPATION; Start 04/19/16 at 10:30 Bisacodyl (Dulcolax Supp) 10 mg DAILY PRN [place] CONSTIPATION; Start 04/19/16 at 10 :30 Senna/Docusate Sodium (Senokot-S) 2 tab HS PO Last administered on 05/12/16 20 :25; Admin Dose 2 TAB; Start 04/20/16 at 21:00 Hydralazine HCl 5 mg 5 mg Q6H PRN IV sbp above 160 Last administered on 18:39; Admin Dose 5 MG; Start 04/26/16 at 15:00 Meropenem (Merrem 1 Gm/100 ml (Pmx)) 100 ml @ 200 mls/hr Q12 IVPB Last administered on 05/13/16 09:39; Admin Dose 200 MLS/HR; Start 05/01/16 at 16:00 IV Flush (NS 10 ml) 10 ml PRN PRN IV IV PROTOCOL; Start 05/01/16 at 16:30 Morphine Sulfate (Ms Contin (Er)) 15 mg BID PO Last administered on 05/12/16 20:25; Admin Dose 15 MG; Start 05/06/16 at 21:00 Hydromorphone HCl 2 mg 2 mg Q3H PRN IV PAIN Last administered on 05/13/16 09: 24; Admin Dose 2 MG; Start 05/10/16 at 12:00 Vancomycin HCl/ Sodium Chloride (Vancocin/NS) 250 ml @ 83.333 mls/ hr Q12H IVPB Last administered on 05/13/16 02:12; Admin Dose 83.333 MLS/HR; Start 02/14 at 02:00 Neomycin/ Polymyxin/ Bacitracin 1 applic 1 applic TID TOP Last administered on 05/13/16 09:39; Admin Dose 1 APPLIC; Start 05/10/16 at 18:30 Sodium Chloride (NS) 1,000 ml @ 75 mls/hr [id number] IV Last administered on 05/13 00:29; Admin Dose 75 MLS/HR; Start 05/13/16 at 01:00 Oxybutynin Chloride 5 mg 5 mg TID PO ; Start 05/13/16 at 09:00 Magnesium Sulfate (Magnesium Sulfate 2 Gm/50 ml) 50 ml @ 25 mls/hr ONCE ONCE IVPB Last administered on 05/13/16 10:00; Admin Dose 25 MLS/HR; Start at 10:00; Stop 05/13/16 at 11:59 ALEX MOTA NP May 13, 2016 10:36
--- NOTE | 2016-05-13 10:51 | CONS ---
Date/Time of Note Date/Time of Note DATE: 05/13/16 TIME: 10:49 Assessment/Plan Assessment/Plan Chief Complaint/Hosp Course Very pleasant 26 y/o male with pmh: Spina Bifida, depression, chronic headaches with hydrocephalus. Pt had VPS placement as a child but most recently underwent multiple bilateral ANSWERING SERVICE OPERATOR (Abd/Pleural) shunt placements with Dr. Triplett starting 2008 and most recent left vps revision was performed at [facility] by Dr. Triplett as well. Pt presents with bifrontal HAs. Per Dr. Triplett's notes states possible non functioning left vps due to "scarring in the peritoneal cavity not allowing enough surface for CSF absorption area." Dr. Triplett / Dr. Castelan (partner) did not feel comfortable performing ventricular atrial shunt and transfer was then requested. pmh/psx: per hpi/chart meds: see med recon ros: per hpi/chart Problems: Additional Assessment/Plan scheduled for right vps and chest wall shows no infection However, pt neck with severe redness and likely fungal infection plan hold surgery and treat local infection for several days discussed plan with ID Consultation Date/Type/Reason Admit Date/Time Apr 18, 2016 at 18:55 Initial Consult Date 04/19/16 Type of Consultation: ID Exam/Review of Systems Vital Signs Vitals Vital Signs Date Time Temp Pulse Resp B/P Pulse Ox O2 Delivery O2 Flow Rate FiO2 05/13/16 08:00 92 05/13/16 06:30 20 136/77 99 05/13/16 06:00 Room Air 05/13/16 04:00 98.1 Intake and Output 05/12/16 05/12/16 05/13/16 15:00 23:00 07:00 Intake Total 520 ml 969.99 ml 430 ml Output Total 343 ml 179 ml 63 ml Balance 177 ml 790.99 ml 367 ml Results Result Diagram: 05/13/16 0835 05/13/16 0835 Results 24 hrs Laboratory Tests Test 05/12/16 11:00 05/13/16 08:35 Activated Partial Thromboplast Time 35.4 H Anion Gap 15 14 Basophils # 0.0 0.0 Basophils % 0.4 0.3 Blood Morphology Comment Blood Urea Nitrogen 16 19 Calcium Level 9.2 9.2 Carbon Dioxide Level 30 28 Chloride Level 99 102 Creatinine 0.41 L 0.39 L Eosinophils # 0.6 H 0.7 H Eosinophils % 7.4 H 6.7 Glucose Level 121 89 Hematocrit 34.6 L 34.1 L Hemoglobin 11.3 L 11.3 L INR International Normalized Ratio 1.03 Lymphocytes # 2.6 3.2 H Lymphocytes % 32.5 31.9 Magnesium Level 1.3 L 1.1 L Mean Corpuscular Hemoglobin 27.8 L 28.0 L Mean Corpuscular Hemoglobin Concent 32.6 33.1 Mean Corpuscular Volume 85.2 84.6 Mean Platelet Volume 6.9 L 6.9 L Monocytes # 0.7 0.8 Monocytes % 8.4 8.4 Neutrophils # 4.1 5.2 Neutrophils % 51.3 52.7 Nucleated Red Blood Cells # 0.0 0.0 Nucleated Red Blood Cells % 0.0 0.0 Platelet Count 353 335 Potassium Level 3.7 3.9 Prothrombin Time 13.5 Prothrombin Time Ratio 1.1 Red Blood Count 4.07 L 4.03 L Red Cell Distribution Width 15.9 H 15.6 H Sodium Level 140 140 White Blood Count 8.0 # 9.9 # Medications Medications Current Medications Ondansetron HCl (Zofran Inj) 4 mg Q6H PRN IV NAUSEA AND/OR VOMITING Last administered on 04/30/16 16:47; Admin Dose 4 MG; Start 04/18/16 at 20:30 Docusate Sodium (Colace) 100 mg Q12H PRN PO CONSTIPATION; Start 04/19/16 at 10: 30 Bisacodyl (Dulcolax) 5 mg DAILY PRN PO CONSTIPATION; Start 04/19/16 at 10:30 Bisacodyl (Dulcolax Supp) 10 mg DAILY PRN [place] CONSTIPATION; Start 04/19/16 at 10 :30 Senna/Docusate Sodium (Senokot-S) 2 tab HS PO Last administered on 05/12/16 20 :25; Admin Dose 2 TAB; Start 04/20/16 at 21:00 Hydralazine HCl 5 mg 5 mg Q6H PRN IV sbp above 160 Last administered on 18:39; Admin Dose 5 MG; Start 04/26/16 at 15:00 Meropenem (Merrem 1 Gm/100 ml (Pmx)) 100 ml @ 200 mls/hr Q12 IVPB Last administered on 05/13/16 09:39; Admin Dose 200 MLS/HR; Start 05/01/16 at 16:00 IV Flush (NS 10 ml) 10 ml PRN PRN IV IV PROTOCOL; Start 05/01/16 at 16:30 Morphine Sulfate (Ms Contin (Er)) 15 mg BID PO Last administered on 05/12/16 20:25; Admin Dose 15 MG; Start 05/06/16 at 21:00 Hydromorphone HCl 2 mg 2 mg Q3H PRN IV PAIN Last administered on 05/13/16 09: 24; Admin Dose 2 MG; Start 05/10/16 at 12:00 Vancomycin HCl/ Sodium Chloride (Vancocin/NS) 250 ml @ 83.333 mls/ hr Q12H IVPB Last administered on 05/13/16 02:12; Admin Dose 83.333 MLS/HR; Start 02/14 at 02:00 Neomycin/ Polymyxin/ Bacitracin 1 applic 1 applic TID TOP Last administered on 05/13/16 09:39; Admin Dose 1 APPLIC; Start 05/10/16 at 18:30 Sodium Chloride (NS) 1,000 ml @ 75 mls/hr [id number] IV Last administered on 05/13 00:29; Admin Dose 75 MLS/HR; Start 05/13/16 at 01:00 Oxybutynin Chloride 5 mg 5 mg TID PO ; Start 05/13/16 at 09:00 Magnesium Sulfate (Magnesium Sulfate 2 Gm/50 ml) 50 ml @ 25 mls/hr ONCE ONCE IVPB Last administered on 05/13/16 10:00; Admin Dose 25 MLS/HR; Start at 10:00; Stop 05/13/16 at 11:59 ALEX MOTA NP May 13, 2016 10:51
--- NOTE | 2016-05-13 11:03 | CONS ---
DATE OF ADMISSION: 04/18/2016 DATE OF CONSULTATION: 05/13/2016 REQUESTING PHYSICIAN: Dr. Jones REASON FOR CONSULTATION: Urinary incontinence and leakage around the Gonzalez catheter, even though it was changed. HISTORY OF PRESENT ILLNESS: This is an unfortunate 26-year-old male with a history of spina bifida and neurogenic bladder. He also is paraplegic and he can move his lower extremities, but is unable to walk. He is wheelchair bound. He, however, can use his upper extremity very well. The patient has a neurogenic bladder and has undergone augmentation cystoplasty at [facility] about 10 years ago. He h as been managing his urination at home by doing in and out catheterization and he does that well him self. Apparently he has been here in the hospital, he had an indwelling Gonzalez catheter and the cath eter, even though it is draining, he kept leaking urine around it and therefore a urological consult ation was requested. PAST MEDICAL HISTORY: In addition to the spina bifida and paraplegia, he has a history of hydroceph alus and has a ventriculoperitoneal shunt which was revised multiple times and it looks like he is g oing to go to surgery to have it replaced again today. He has had a history of recurrent urinary tr act infections, chronic pain syndrome and chronic right lower extremity wound. PAST SURGICAL HISTORY: The surgeries on his hydrocephalus, STEREOTYPE CASTER shunt. History of surgery on his low er extremities and also the augmentation cystoplasty and a cholecystectomy. ALLERGIES: 1. TYLENOL. 2. CEFOTAXIME. 3. HYDROCODONE. 4. IBUPROFEN. 5. KETOROLAC. 6. LATEX. 7. OXYCODONE. 8. PAPAYA. 9. PHYSICAL EXAMINATION: VITAL SIGNS: Temperature is 98.1, pulse is 97, respiration 20, blood pressure 136/77. GENERAL: Reveals a 26-year-old male. He weighs about 110 kg and is 62 inches tall. He does have a dressing on his head from his surgery on his STEREOTYPE CASTER shunt. ABDOMEN: Obese. There is no abdominal mass palpable. He has a scar from prior surgeries. GENITALIA: External genitalia normal. Gonzalez catheter is draining clear urine. LABORATORY DATA: His CBC shows a white count of 8.0, hemoglobin 11.3, hematocrit 34.6. BUN is 16, creatinine 0.41. Electrolytes are normal. The urinalysis, 1+ leukocyte esterase and 2+ hemoglobin. He had a urine culture on 05/01/2016 and it was no growth after 48 hours. IMPRESSION: Neurogenic bladder, uninhibited bladder contractions, rule out urinary tract infection. PLAN: Put him on oxybutynin 5 mg every 8 hours and also get a urine culture to make sure that there is no bladder infections. These medications will be started after he gets his surgery done today. Dictated By: ION THAKUR/BRADY Conf#: [id number] DID#: [id number]
[2016-05-13] MEDS: FLUCONAZOLE 100 MG TAB PO SCH (12:30)
--- NOTE | 2016-05-13 13:00 | PN ---
DATE: 05/13/2016 SUBJECTIVE: No acute changes. The patient is alert, feels good, looks comfortable, no fevers. VITAL SIGNS: Stable. LABORATORIES: WBC 9.9, no shift, no bands. BUN 19, creatinine 0.39. MICROBIOLOGY: Culture of right chest grew Morganella morganii and coagulase- negative staph species on 05/07/2016. All other cultures negative. Urine culture on admission in March was positive for VRE. INDWELLINGS: PICC line, Gonzalez, ventriculostomy. ANTIMICROBIALS: 1. Vancomycin. 2. Meropenem. PHYSICAL EXAMINATION: GENERAL: Morbidly obese, ill-appearing, middle-aged young white male who is alert, in no distress. HEENT: Head atraumatic, normocephalic. Sclerae anicteric. Buccal mucosa pink. NECK: Supple, trachea midline. CHEST: Rise symmetrical. Breath sounds clear. HEART: S1, S2. ABDOMEN: Soft, bowel tones present. EXTREMITIES: Without cyanosis. ASSESSMENT: 1. Status post sepsis. 2. Status post left OFFSHORING MANAGER shunt revision secondary to shunt malfunction, requiring externalization with ventriculostomy placement. 3. Status post VRE urinary tract infection. 4. Fungal excoriation of the neck. 5. Morbid obesity. 6. History of spina bifida. PLAN: The patient remains stable. We are going to change meropenem to cefepime , will add Diflucan and nystatin to the neck area secondary to fungal excoriation. Pending OFFSHORING MANAGER shunt in several days. Above was discussed with Cale Adams NP. Dictated By: PAT RODRIGUEZ HIM MANAGER for DIAN AVILA/BRADY Conf#: [id number] DID#: [id number] MTDD
--- NOTE | 2016-05-13 13:32 | PN ---
Date/Time of Note Date/Time of Note DATE: 05/13/16 TIME: 13:26 Assessment/Plan VTE Prophylaxis VTE Prophylaxis Intervention: contraindicated (pending surgery) Lines/Catheters IV Catheter Type (from Nrsg): PICC Line Central line still needed: Yes (iv access) Urinary Cath still in place: Yes Reason Cath still needed: urinary retention Assessment/Plan Chief Complaint/Hosp Course S: 05/13-events noted O: vss PE: No pallor/ droop S1S2, no m/r/g ctab Bs + nt, nd, no r/r/g. Obese. Scars c/d/i Hypotonia. A/P 1. Headache. Stable, shunt malfunction. Sp L VPS externalization & EVD placement ; for Rt VPS once ok from ID standpoint. -low periop risk; may proceed from medical standpoint; hold lovenox. 2. Chr hydrocephalus. 3. Chr pain disorder 4. Ftt 5. Possible nonadherence 6. Neurogenic bladder; [facility] [place] 7. Recent mdr UTI/ vre 8. Anemia 9. Chest wall excoriation/ cellulitis Problems: Exam/Review of Systems Vital Signs Vitals Vital Signs Date Time Temp Pulse Resp B/P Pulse Ox O2 Delivery O2 Flow Rate FiO2 05/13/16 13:13 81 05/13/16 11:00 18 124/70 98 Room Air 05/13/16 08:00 98.2 Intake and Output 05/12/16 05/12/16 05/13/16 15:00 23:00 07:00 Intake Total 520 ml 969.99 ml 430 ml Output Total 343 ml 179 ml 63 ml Balance 177 ml 790.99 ml 367 ml Results Result Diagram: 05/13/16 0835 05/13/16 0835 Results 24 hrs Laboratory Tests Test 05/13/16 08:35 Anion Gap 14 Basophils # 0.0 Basophils % 0.3 Blood Morphology Comment Blood Urea Nitrogen 19 Calcium Level 9.2 Carbon Dioxide Level 28 Chloride Level 102 Creatinine 0.39 L Eosinophils # 0.7 H Eosinophils % 6.7 Glucose Level 89 Hematocrit 34.1 L Hemoglobin 11.3 L Lymphocytes # 3.2 H Lymphocytes % 31.9 Magnesium Level 1.1 L Mean Corpuscular Hemoglobin 28.0 L Mean Corpuscular Hemoglobin Concent 33.1 Mean Corpuscular Volume 84.6 Mean Platelet Volume 6.9 L Monocytes # 0.8 Monocytes % 8.4 Neutrophils # 5.2 Neutrophils % 52.7 Nucleated Red Blood Cells # 0.0 Nucleated Red Blood Cells % 0.0 Platelet Count 335 Potassium Level 3.9 Red Blood Count 4.03 L Red Cell Distribution Width 15.6 H Sodium Level 140 White Blood Count 9.9 # Medications Medications Current Medications Ondansetron HCl (Zofran Inj) 4 mg Q6H PRN IV NAUSEA AND/OR VOMITING Last administered on 04/30/16 16:47; Admin Dose 4 MG; Start 04/18/16 at 20:30 Docusate Sodium (Colace) 100 mg Q12H PRN PO CONSTIPATION; Start 04/19/16 at 10: 30 Bisacodyl (Dulcolax) 5 mg DAILY PRN PO CONSTIPATION; Start 04/19/16 at 10:30 Bisacodyl (Dulcolax Supp) 10 mg DAILY PRN [place] CONSTIPATION; Start 04/19/16 at 10 :30 Senna/Docusate Sodium (Senokot-S) 2 tab HS PO Last administered on 05/12/16 20 :25; Admin Dose 2 TAB; Start 04/20/16 at 21:00 Hydralazine HCl (Apresoline) 5 mg Q6H PRN IV sbp above 160 Last administered on 04/30/16 18:39; Admin Dose 5 MG; Start 04/26/16 at 15:00 IV Flush (NS 10 ml) 10 ml PRN PRN IV IV PROTOCOL; Start 05/01/16 at 16:30 Morphine Sulfate (Ms Contin (Er)) 15 mg BID PO Last administered on 05/12/16 20:25; Admin Dose 15 MG; Start 05/06/16 at 21:00 Hydromorphone HCl 2 mg 2 mg Q3H PRN IV PAIN Last administered on 05/13/16 12: 30; Admin Dose 2 MG; Start 05/10/16 at 12:00 Vancomycin HCl/ Sodium Chloride (Vancocin/NS) 250 ml @ 83.333 mls/ hr Q12H IVPB Last administered on 05/13/16 02:12; Admin Dose 83.333 MLS/HR; Start 02/14 at 02:00 Neomycin/ Polymyxin/ Bacitracin 1 applic 1 applic TID TOP Last administered on 05/13/16 12:30; Admin Dose 1 APPLIC; Start 05/10/16 at 18:30 Sodium Chloride (NS) 1,000 ml @ 75 mls/hr [id number] IV Last administered on 05/13 00:29; Admin Dose 75 MLS/HR; Start 05/13/16 at 01:00 Oxybutynin Chloride 5 mg 5 mg TID PO Last administered on 05/13/16 12:30; Admin Dose 5 MG; Start 05/13/16 at 09:00 Cefepime HCl (Maxipime 1gm/50 ml (Pmx)) 50 ml @ 100 mls/hr Q12 IVPB ; Start at 21:00 Fluconazole (Diflucan) 100 mg DAILY PO Last administered on 05/13/16 12:30; Admin Dose 100 MG; Start 05/13/16 at 11:30 Nystatin (Nystatin Powder) 1 applic BID TOP ; Start 05/13/16 at 21:00 CHRIS TOPETE MD May 13, 2016 13:32
[2016-05-13] MEDS: FAMOTIDINE 20 MG TAB PO SCH (15:37)
[2016-05-13] MEDS: LACTOBACILLUS CHEW TAB PO SCH ×2 (15:37→21:38)
[2016-05-13] MEDS: SENNA/DOCUSATE NA (8.6MG/50MG) TAB PO SCH (21:00)
[2016-05-13] MEDS: NYSTATIN 30 GM POWDER BTL TOP SCH (21:38)
[2016-05-13] MEDS: CEFEPIME 1GM/50 ML (PMX) 50 ML IVPB SCH (21:38)
[2016-05-14] VITALS (28 sets, daily range): BP systolic 109–142; BP diastolic 47–90; PULSE 57–99; RESP 13–28
[2016-05-14] MEDS: HYDROmorphONE 2 MG/ML SYG IV PRN ×9 (01:37→23:53)
[2016-05-14] MEDS: VANCOMYCIN 1.5 GM in SOD CHLORIDE 0.9% 250 ML IVPB SCH ×2 (02:40→14:01)
[2016-05-14 04:42] LABS: BASOPHILS % 0.4 % (0.0-2.0); EOSINOPHILS # 0.7 10^3/ul (0.0-0.5); EOSINOPHILS % 7.6 % (0.0-7.0); HEMATOCRIT 31.9 % (42.0-52.0); HEMOGLOBIN 10.6 g/dl (14.0-18.0); LYMPHOCYTES # 3.1 10^3/ul (0.8-2.9); LYMPHOCYTES % 32.9 % (15.0-51.0); MEAN CORPUSCULAR HEMOGLOBIN 28.1 pg (29.0-33.0); MEAN CORPUSCULAR HGB CONC 33.2 g/dl (32.0-37.0); MEAN CORPUSCULAR VOLUME 84.7 fl (82.0-101.0); MEAN PLATELET VOLUME 7.2 fl (7.4-10.4); MONOCYTE # 0.8 10^3/ul (0.3-0.9); MONOCYTES % 8.9 % (0.0-11.0); NEUTROPHIL # 4.7 10^3/ul (1.6-7.5); NEUTROPHILS % 50.2 % (39.0-77.0); PLATELET COUNT 329 10^3/UL (140-440); RED BLOOD COUNT 3.77 10^6/ul (4.70-6.10); RED CELL DISTRIBUTION WIDTH 15.9 % (11.5-14.5); UNCORRECTED WBC 9.4 10^3/ul (4.8-10.8); WHITE BLOOD COUNT 9.4 10^3/ul (4.8-10.8)
[2016-05-14 04:46] LABS: INR 1.04; PROTIME 13.6 Sec (12.2-14.2); PT RATIO 1.1
[2016-05-14 04:49] LABS: CONDITION 1; LH ANALYZER COMMENTS 1; POTASSIUM 4.1 mmol/L (3.5-5.1)
[2016-05-14 04:51] LABS: CREATININE 0.43 mg/dl (0.61-1.24)
[2016-05-14 04:52] LABS: CALCIUM 8.9 mg/dl (8.4-10.2); MAGNESIUM 1.3 mg/dl (1.7-2.5); PHOSPHORUS 3.9 mg/dl (2.5-4.9)
[2016-05-14] MEDS ORDERED: MAGNESIUM SULFATE 4 GM/100 ML 100 ML IVPB ONE (07:00)
[2016-05-14] MEDS: CEFEPIME 1GM/50 ML (PMX) 50 ML IVPB SCH ×2 (08:28→20:45)
[2016-05-14] MEDS: FLUCONAZOLE 100 MG TAB PO SCH (08:30)
[2016-05-14] MEDS: LACTOBACILLUS CHEW TAB PO SCH ×2 (08:30→20:48)
[2016-05-14] MEDS: OXYBUTYNIN 5 MG TAB PO SCH ×3 (08:30→20:48)
[2016-05-14] MEDS: FAMOTIDINE 20 MG TAB PO SCH (08:30)
[2016-05-14] MEDS: NEOMYC/POLYMYX/BACIT 30 GM OINT TOP SCH ×3 (08:32→20:49)
[2016-05-14] MEDS: morphine (ER) 15 MG TAB PO SCH ×2 (08:46→20:48)
--- NOTE | 2016-05-14 09:07 | PN ---
DATE: 05/13/2016 PAIN MANAGEMENT FOLLOWUP NOTE SUBJECTIVE: Mr. Dick is doing well. He denies nausea, vomiting, headache, shortness of breath, or constipation. OBJECTIVE: VITAL SIGNS: Blood pressure 124/70, pulse of 81 and regular, respirations of 19, temperature 97.7 d egrees, 100% saturation on room air. HEENT: He is normocephalic and atraumatic. Anicteric, acyanotic. NEUROLOGICAL: He is oriented x3. Cranial nerves II through XII are grossly intact. Motor and sens ory findings grossly within normal limits. CHEST: Clear. COR: Regular rate and rhythm. ABDOMEN: Grossly benign, without organomegaly, masses, tenderness, rebound or peritoneal signs. ASSESSMENT AND PLAN: No change in his current pain control medications, other medical problems incl uding EVD placement, status post left VPS externalization, hydrocephalus, chronic pain syndrome, edin rogenic bladder, spina bifida. Will be continued with the current pain control medications. Followu p daily. Dictated By: KEVYN FONTANA MD, LP/BRADY Conf#: [id number] DID#: [id number]
[2016-05-14] MEDS: NYSTATIN 30 GM POWDER BTL TOP SCH ×2 (11:28→20:49)
--- NOTE | 2016-05-14 11:30 | PN ---
DATE: 05/14/2016 SUBJECTIVE: Patient is alert, feels good. Denies pain, discomfort. No fevers. LABORATORY DATA: WBC 9.4, platelets 329,000, no shift, no bands. BUN 17, creatinine 0.43. ANTIMICROBIALS: The patient is on IV cefepime and vancomycin. He is also on oral Diflucan. INDWELLINGS: CLINICAL NURSING INSTRUCTOR shunt, right upper extremity PICC line placed on 05/01/2016, Gonzalez catheter. PHYSICAL EXAMINATION: GENERAL: This is well-developed, ill-appearing, morbidly obese young man who is alert, in no distre ss. HEENT: Head atraumatic, normocephalic. Sclerae anicteric. Buccal mucosa pink. NECK: Obese: There is some redness present in the skin fold, but no active excoriation. LUNGS: Chest rise symmetrical. Breath sounds clear. Right upper chest scab without drainage, no e rythema. ABDOMEN: Soft, bowel tones present. EXTREMITIES: Without cyanosis. ASSESSMENT 1. Status post sepsis with acute encephalopathy. 2. Status post ventriculoperitoneal shunt malfunction, now with ventriculostomy. 3. Status post vancomycin-resistant enterococcus urinary tract infection. 4. Status post right chest cellulitis, with wound culture growing Morganella morganii and coagulase -negative staphylococcus species, remains on antibiotics. 5. History of spina bifida. 6. Morbid obesity. PLAN: The patient remains stable, afebrile, completing treatment with antibiotics. He is being fol lowed by multiple consultants. We will follow their recommendations. Pending CLINICAL NURSING INSTRUCTOR shunt in a couple of days. Dictated By: PAT RODRIGUEZ SYRUP MACHINE LABORER for DIAN AVILA/NTS Conf#: [id number] DID#: [id number]
--- NOTE | 2016-05-14 12:43 | PN ---
Date/Time of Note Date/Time of Note DATE: 05/14/16 TIME: 12:41 Assessment/Plan VTE Prophylaxis VTE Prophylaxis Intervention: contraindicated (Bleeding risk) Lines/Catheters IV Catheter Type (from Nrsg): PICC Line Central line still needed: Yes (IV access/ medications) Urinary Cath still in place: Yes Reason Cath still needed: urinary retention Assessment/Plan Chief Complaint/Hosp Course S: 05/13-events noted 05/14-still states of having continuous pain. No change in speech. Hungry. O: vss PE: No pallor/ droop; anisocoria; lt drain c/d/i S1S2, no m/r/g ctab Bs + nt, nd, no r/r/g. Obese. Scars c/d/i Hypotonia. A/P 1. Headache. Stable, shunt malfunction. Sp L VPS externalization & EVD placement ; for Rt VPS once ok from ID standpoint. -low periop risk; may proceed from medical standpoint; hold lovenox. 2. Chr hydrocephalus. 3. Chr pain disorder; 4. Ftt 5. Possible nonadherence 6. Neurogenic bladder; [place] [place]. Recent mdr UTI/ vre 8. Anemia 9. Chest wall excoriation/ cellulitis Problems: Exam/Review of Systems Vital Signs Vitals Vital Signs Date Time Temp Pulse Resp B/P Pulse Ox O2 Delivery O2 Flow Rate FiO2 05/14/16 12:00 79 05/14/16 09:30 18 133/66 100 Room Air 05/14/16 08:00 98.0 Intake and Output 05/13/16 05/13/16 05/14/16 14:59 22:59 06:59 Intake Total 590 ml 1955 ml 973.333 ml Output Total 27 ml 65 ml 1946 ml Balance 563 ml 1890 ml -972.667 ml Results Result Diagram: 05/14/16 0410 05/14/16 0410 Results 24 hrs Laboratory Tests Test 05/14/16 04:10 Anion Gap 14 Basophils # 0.0 Basophils % 0.4 Blood Morphology Comment Blood Urea Nitrogen 17 Calcium Level 8.9 Carbon Dioxide Level 29 Chloride Level 100 Creatinine 0.43 L Eosinophils # 0.7 H Eosinophils % 7.6 H Glucose Level 92 Hematocrit 31.9 L Hemoglobin 10.6 L INR International Normalized Ratio 1.04 Lymphocytes # 3.1 H Lymphocytes % 32.9 Magnesium Level 1.3 L Mean Corpuscular Hemoglobin 28.1 L Mean Corpuscular Hemoglobin Concent 33.2 Mean Corpuscular Volume 84.7 Mean Platelet Volume 7.2 L Monocytes # 0.8 Monocytes % 8.9 Neutrophils # 4.7 Neutrophils % 50.2 Nucleated Red Blood Cells # 0.0 Nucleated Red Blood Cells % 0.0 Phosphorus Level 3.9 Platelet Count 329 Potassium Level 4.1 Prothrombin Time 13.6 Prothrombin Time Ratio 1.1 Red Blood Count 3.77 L Red Cell Distribution Width 15.9 H Sodium Level 139 White Blood Count 9.4 Medications Medications Current Medications Ondansetron HCl (Zofran Inj) 4 mg Q6H PRN IV NAUSEA AND/OR VOMITING Last administered on 04/30/16 16:47; Admin Dose 4 MG; Start 04/18/16 at 20:30 Docusate Sodium (Colace) 100 mg Q12H PRN PO CONSTIPATION; Start 04/19/16 at 10: 30 Bisacodyl (Dulcolax) 5 mg DAILY PRN PO CONSTIPATION; Start 04/19/16 at 10:30 Bisacodyl (Dulcolax Supp) 10 mg DAILY PRN [place] CONSTIPATION; Start 04/19/16 at 10 :30 Senna/Docusate Sodium (Senokot-S) 2 tab HS PO Last administered on 05/12/16 20 :25; Admin Dose 2 TAB; Start 04/20/16 at 21:00 Hydralazine HCl (Apresoline) 5 mg Q6H PRN IV sbp above 160 Last administered on 04/30/16 18:39; Admin Dose 5 MG; Start 04/26/16 at 15:00 IV Flush (NS 10 ml) 10 ml PRN PRN IV IV PROTOCOL; Start 05/01/16 at 16:30 Morphine Sulfate (Ms Contin (Er)) 15 mg BID PO Last administered on 05/14/16 08:46; Admin Dose 15 MG; Start 05/06/16 at 21:00 Hydromorphone HCl 2 mg 2 mg Q3H PRN IV PAIN Last administered on 05/14/16 12: 09; Admin Dose 2 MG; Start 05/10/16 at 12:00 Vancomycin HCl/ Sodium Chloride (Vancocin/NS) 250 ml @ 83.333 mls/ hr Q12H IVPB Last administered on 05/14/16 02:40; Admin Dose 83.333 MLS/HR; Start 02/14 at 02:00 Neomycin/ Polymyxin/ Bacitracin 1 applic 1 applic TID TOP Last administered on 05/14/16 08:32; Admin Dose 1 APPLIC; Start 05/10/16 at 18:30 Sodium Chloride (NS) 1,000 ml @ 75 mls/hr [id number] IV Last administered on 05/13 22:15; Admin Dose 75 MLS/HR; Start 05/13/16 at 01:00 Oxybutynin Chloride 5 mg 5 mg TID PO Last administered on 05/14/16 08:30; Admin Dose 5 MG; Start 05/13/16 at 09:00 Cefepime HCl (Maxipime 1gm/50 ml (Pmx)) 50 ml @ 100 mls/hr Q12 IVPB Last administered on 05/14/16 08:28; Admin Dose 100 MLS/HR; Start 05/13/16 at 21:00 Fluconazole (Diflucan) 100 mg DAILY PO Last administered on 05/14/16 08:30; Admin Dose 100 MG; Start 05/13/16 at 11:30 Nystatin (Nystatin Powder) 1 applic BID TOP Last administered on 05/14/16 11: 28; Admin Dose 1 APPLIC; Start 05/13/16 at 21:00 Famotidine (Pepcid) 20 mg DAILY PO Last administered on 05/14/16 08:30; Admin Dose 20 MG; Start 05/13/16 at 14:00 Lactobacillus Acidoph/Bulgaricus (Floranex) 1 tab BID PO Last administered on 08:30; Admin Dose 1 TAB; Start 05/13/16 at 14:00 Miscellaneous Information (*Rx Drug Level Order Reminder*) 1 ONCE ONCE XX ; Start 05/15/16 at 01:00; Stop 05/15/16 at 01:01 CHRIS TOPETE MD May 14, 2016 12:43
--- NOTE | 2016-05-14 13:54 | CONS ---
Date/Time of Note Date/Time of Note DATE: 05/14/16 TIME: 13:50 Assessment/Plan Assessment/Plan Chief Complaint/Hosp Course Very pleasant 26 y/o male with pmh: Spina Bifida, depression, chronic headaches with hydrocephalus. Pt had VPS placement as a child but most recently underwent multiple bilateral FISH[employer] DIVER NET (Abd/Pleural) shunt placements with Dr. Triplett starting 2008 and most recent left vps revision was performed at [facility] by Dr. Triplett as well. Pt presents with bifrontal HAs. Per Dr. Triplett's notes states possible non functioning left vps due to "scarring in the peritoneal cavity not allowing enough surface for CSF absorption area." Dr. Triplett / Dr. Castelan (partner) did not feel comfortable performing ventricular atrial shunt and transfer was then requested. pmh/psx: per hpi/chart meds: see med recon ros: per hpi/chart Problems: Additional Assessment/Plan impression Left EVD in place ICP stable Right vps placement on hold due to neck infection plan cont drsg to right chest wall cont anti-fungal powder to neck area will proceed with right vps once neck infection improves Consultation Date/Type/Reason Admit Date/Time Apr 18, 2016 at 18:55 Initial Consult Date 04/19/16 Type of Consultation: ID [id number] HR Interval Summary Free Text/Dictation S: EVD draining well ICP stable Anti-fungal powder applied neck Exam/Review of Systems Vital Signs Vitals Vital Signs Date Time Temp Pulse Resp B/P Pulse Ox O2 Delivery O2 Flow Rate FiO2 05/14/16 12:00 79 05/14/16 09:30 18 133/66 100 Room Air 05/14/16 08:00 98.0 Intake and Output 05/13/16 05/13/16 05/14/16 15:00 23:00 07:00 Intake Total 590 ml 2030 ml 898.333 ml Output Total 35 ml 64 ml 1950 ml Balance 555 ml 1966 ml -1051.667 ml Exam Neurological: other (MS: AAOX4 CN: PERRL M: FC, 5/5 bilat UE, 0/5 LE ) Results Result Diagram: 05/14/16 0410 05/14/16 0410 Results 24 hrs Laboratory Tests Test 05/14/16 04:10 Anion Gap 14 Basophils # 0.0 Basophils % 0.4 Blood Morphology Comment Blood Urea Nitrogen 17 Calcium Level 8.9 Carbon Dioxide Level 29 Chloride Level 100 Creatinine 0.43 L Eosinophils # 0.7 H Eosinophils % 7.6 H Glucose Level 92 Hematocrit 31.9 L Hemoglobin 10.6 L INR International Normalized Ratio 1.04 Lymphocytes # 3.1 H Lymphocytes % 32.9 Magnesium Level 1.3 L Mean Corpuscular Hemoglobin 28.1 L Mean Corpuscular Hemoglobin Concent 33.2 Mean Corpuscular Volume 84.7 Mean Platelet Volume 7.2 L Monocytes # 0.8 Monocytes % 8.9 Neutrophils # 4.7 Neutrophils % 50.2 Nucleated Red Blood Cells # 0.0 Nucleated Red Blood Cells % 0.0 Phosphorus Level 3.9 Platelet Count 329 Potassium Level 4.1 Prothrombin Time 13.6 Prothrombin Time Ratio 1.1 Red Blood Count 3.77 L Red Cell Distribution Width 15.9 H Sodium Level 139 White Blood Count 9.4 Medications Medications Current Medications Ondansetron HCl (Zofran Inj) 4 mg Q6H PRN IV NAUSEA AND/OR VOMITING Last administered on 04/30/16 16:47; Admin Dose 4 MG; Start 04/18/16 at 20:30 Docusate Sodium (Colace) 100 mg Q12H PRN PO CONSTIPATION; Start 04/19/16 at 10: 30 Bisacodyl (Dulcolax) 5 mg DAILY PRN PO CONSTIPATION; Start 04/19/16 at 10:30 Bisacodyl (Dulcolax Supp) 10 mg DAILY PRN [place] CONSTIPATION; Start 04/19/16 at 10 :30 Senna/Docusate Sodium (Senokot-S) 2 tab HS PO Last administered on 05/12/16 20 :25; Admin Dose 2 TAB; Start 04/20/16 at 21:00 Hydralazine HCl (Apresoline) 5 mg Q6H PRN IV sbp above 160 Last administered on 04/30/16 18:39; Admin Dose 5 MG; Start 04/26/16 at 15:00 IV Flush (NS 10 ml) 10 ml PRN PRN IV IV PROTOCOL; Start 05/01/16 at 16:30 Morphine Sulfate (Ms Contin (Er)) 15 mg BID PO Last administered on 05/14/16 08:46; Admin Dose 15 MG; Start 05/06/16 at 21:00 Hydromorphone HCl 2 mg 2 mg Q3H PRN IV PAIN Last administered on 05/14/16 12: 09; Admin Dose 2 MG; Start 05/10/16 at 12:00 Vancomycin HCl/ Sodium Chloride (Vancocin/NS) 250 ml @ 83.333 mls/ hr Q12H IVPB Last administered on 05/14/16 02:40; Admin Dose 83.333 MLS/HR; Start 02/14 at 02:00 Neomycin/ Polymyxin/ Bacitracin 1 applic 1 applic TID TOP Last administered on 05/14/16 08:32; Admin Dose 1 APPLIC; Start 05/10/16 at 18:30 Sodium Chloride (NS) 1,000 ml @ 50 mls/hr Q20H IV Last administered on 22:15; Admin Dose 75 MLS/HR; Start 05/13/16 at 01:00 Oxybutynin Chloride 5 mg 5 mg TID PO Last administered on 05/14/16 08:30; Admin Dose 5 MG; Start 05/13/16 at 09:00 Cefepime HCl (Maxipime 1gm/50 ml (Pmx)) 50 ml @ 100 mls/hr Q12 IVPB Last administered on 05/14/16 08:28; Admin Dose 100 MLS/HR; Start 05/13/16 at 21:00 Fluconazole (Diflucan) 100 mg DAILY PO Last administered on 05/14/16 08:30; Admin Dose 100 MG; Start 05/13/16 at 11:30 Nystatin (Nystatin Powder) 1 applic BID TOP Last administered on 05/14/16 11: 28; Admin Dose 1 APPLIC; Start 05/13/16 at 21:00 Famotidine (Pepcid) 20 mg DAILY PO Last administered on 05/14/16 08:30; Admin Dose 20 MG; Start 05/13/16 at 14:00 Lactobacillus Acidoph/Bulgaricus (Floranex) 1 tab BID PO Last administered on 08:30; Admin Dose 1 TAB; Start 05/13/16 at 14:00 Miscellaneous Information (*Rx Drug Level Order Reminder*) 1 ONCE ONCE XX ; Start 05/15/16 at 01:00; Stop 05/15/16 at 01:01 ALEX MOTA NP May 14, 2016 13:54
[2016-05-14] MEDS: SOD CHLORIDE 0.9% 1,000 ML IV SCH (18:21)
--- NOTE | 2016-05-14 19:02 | PN ---
DATE: 05/14/2016 SUBJECTIVE: Neurogenic bladder and urinary retention and uninhibited bladder contraction. Patient was started on oxybutynin 5 mg 3 times a day, and a urine culture was requested. Patient presently is sleeping and comfortable. However, looking for the urine culture, it seems that no specimen was sent, and the lab cancelled the order. The urine output is good. He put 2500 mL of urine in the pas t 24 hours. LABORATORY DATA: CBC shows a white count 9.4, hemoglobin 10.6, hematocrit 31.9. BUN is 17, creatin ine 0.43. Electrolytes are normal. IMPRESSION: Neurogenic bladder. PLAN: To send the urine for the culture and see if there is any infection that may be triggering al so his urine bypass, but, today, he has been doing well, and there is no leakage of urine. Dictated By: ION THAKUR/BRADY Conf#: [id number] DID#: [id number]
[2016-05-14] MEDS: SENNA/DOCUSATE NA (8.6MG/50MG) TAB PO SCH (20:48)
[2016-05-15] VITALS (23 sets, daily range): BP systolic 104–158; BP diastolic 53–87; PULSE 57–100; RESP 13–23
[2016-05-15] MEDS: VANCOMYCIN 1.5 GM in SOD CHLORIDE 0.9% 250 ML IVPB SCH ×3 (02:00→14:38)
[2016-05-15] MEDS: HYDROmorphONE 2 MG/ML SYG IV PRN ×6 (02:55→18:27)
[2016-05-15] MEDS: CEFEPIME 1GM/50 ML (PMX) 50 ML IVPB SCH ×2 (09:10→21:29)
[2016-05-15] MEDS: OXYBUTYNIN 5 MG TAB PO SCH ×3 (09:10→21:30)
[2016-05-15] MEDS: FLUCONAZOLE 100 MG TAB PO SCH (09:10)
[2016-05-15] MEDS: LACTOBACILLUS CHEW TAB PO SCH ×2 (09:10→21:33)
[2016-05-15] MEDS: morphine (ER) 15 MG TAB PO SCH ×2 (09:10→21:33)
[2016-05-15] MEDS: FAMOTIDINE 20 MG TAB PO SCH (09:10)
[2016-05-15] MEDS: NYSTATIN 30 GM POWDER BTL TOP SCH ×2 (09:11→21:31)
[2016-05-15] MEDS: NEOMYC/POLYMYX/BACIT 30 GM OINT TOP SCH ×3 (09:11→21:31)
--- NOTE | 2016-05-15 11:35 | PN ---
DATE: 05/15/2016 SUBJECTIVE: No acute events. The patient is sleeping. No fevers. Vital signs stable. No labs. ANTIMICROBIALS: 1. Vancomycin. 2. Cefepime. 3. Nystatin powder. 4. Fluconazole. INDWELLINGS: Ventriculostomy, Gonzalez, PICC. PHYSICAL EXAMINATION: GENERAL: Obese, chronically ill-appearing young man who is lying comfortably in bed. HEENT: Head atraumatic, normocephalic. Sclerae anicteric. Buccal mucosa dry. NECK: Supple, trachea midline. CHEST: Rise symmetrical. Breath sounds diminished to bases. HEART: S1, S2. ABDOMEN: Soft. Bowel sounds present. EXTREMITIES: With trace edema. ASSESSMENT: 1. Status post sepsis. 2. Right chest wall cellulitis, resolved. 3. Fungal excoriation of the neck, improving. 4. Status post ventriculoperitoneal shunt malfunction, requiring ventriculostomy. 5. History of spina bifida. 6. Status post vancomycin-resistant enterococci urinary tract infection. PLAN: The patient remains stable. Continue present care, antibiotics. Follow recommendations of [facility]. 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 Dictated By: PAT RODRIGUEZ MARINE MACHINIST for [employer] AVIL[employer]/NTS Conf#: [id number] DID#: [id number]
--- NOTE | 2016-05-15 14:09 | PN ---
Date/Time of Note Date/Time of Note DATE: 05/15/16 TIME: 14:03 Assessment/Plan VTE Prophylaxis VTE Prophylaxis Intervention: contraindicated (drain) Lines/Catheters IV Catheter Type (from Nrsg): PICC Line Central line still needed: Yes (iv access) Urinary Cath still in place: Yes Reason Cath still needed: urinary retention Assessment/Plan Chief Complaint/Hosp Course S: 05/13-events noted 05/14-still states of having continuous pain. No change in speech. Hungry. 05/15- no events. O: vss PE: No pallor/ droop; anisocoria; lt drain c/d/i S1S2, no m/r/g ctab Bs + nt, nd, no r/r/g. Obese. Scars c/d/i Hypotonia A/P 1. Headache. Shunt malfunction, stable. Sp L VPS externalization & EVD placement ; for Rt VPS once ok from ID standpoint. -low periop risk; may proceed from medical standpoint; hold lovenox due to drain. 2. Chr hydrocephalus. 3. Chr pain disorder. 4. Ftt 5. Possible nonadherence 6. Neurogenic bladder; [place] [place] Recent mdr UTI/ vre 8. Anemia 9. Chest wall/ neck excoriation/ cellulitis. Problems: Exam/Review of Systems Vital Signs Vitals Vital Signs Date Time Temp Pulse Resp B/P Pulse Ox O2 Delivery O2 Flow Rate FiO2 05/15/16 12:00 76 05/15/16 06:00 13 134/65 98 Room Air 05/15/16 04:00 98.6 Intake and Output 05/14/16 05/14/16 05/15/16 14:59 22:59 06:59 Intake Total 1390 ml 890 ml 400 ml Output Total 1449 ml 1752 ml 851 ml Balance -59 ml -862 ml -451 ml Results Result Diagram: 05/14/1640905/14/16 0410 Results 24 hrs Laboratory Tests Test 05/15/16 01:12 Vancomycin Level Trough 16.4 Medications Medications Current Medications Ondansetron HCl (Zofran Inj) 4 mg Q6H PRN IV NAUSEA AND/OR VOMITING Last administered on 04/30/16t 16:47; Admin Dose 4 MG; Start 04/18/16 at 20:30 Docusate Sodium (Colace) 100 mg Q12H PRN PO CONSTIPATION; Start 04/19/16 at 10: 30 Bisacodyl (Dulcolax) 5 mg DAILY PRN PO CONSTIPATION; Start 04/19/16 at 10:30 Bisacodyl (Dulcolax Supp) 10 mg DAILY PRN [place] CONSTIPATION; Start 04/19/16 at 10 :30 Senna/Docusate Sodium (Senokot-S) 2 tab HS PO Last administered on 05/14/16 20 :48; Admin Dose 2 TAB; Start 04/20/16 at 21:00 Hydralazine HCl (Apresoline) 5 mg Q6H PRN IV sbp above 160 Last administered on 04/30/16 18:39; Admin Dose 5 MG; Start 04/26/16 at 15:00 IV Flush (NS 10 ml) 10 ml PRN PRN IV IV PROTOCOL; Start 05/01/16 at 16:30 Morphine Sulfate (Ms Contin (Er)) 15 mg BID PO Last administered on 05/15/16 09:10; Admin Dose 15 MG; Start 05/06/16 at 21:00 Hydromorphone HCl 2 mg 2 mg Q3H PRN IV PAIN Last administered on 05/15/16 12: 14; Admin Dose 2 MG; Start 05/10/16 at 12:00 Vancomycin HCl/ Sodium Chloride (Vancocin/NS) 250 ml @ 83.333 mls/ hr Q12H IVPB Last administered on 05/15/16 03:08; Admin Dose 83.333 MLS/HR; Start 02/14 at 02:00 Neomycin/ Polymyxin/ Bacitracin 1 applic 1 applic TID TOP Last administered on 05/15/16 13:49; Admin Dose 1 APPLIC; Start 05/10/16 at 18:30 Sodium Chloride (NS) 1,000 ml @ 50 mls/hr Q20H IV Last administered on 18:21; Admin Dose 50 MLS/HR; Start 05/13/16 at 01:00 Oxybutynin Chloride 5 mg 5 mg TID PO Last administered on 05/15/16 13:48; Admin Dose 5 MG; Start 05/13/16 at 09:00 Cefepime HCl (Maxipime 1gm/50 ml (Pmx)) 50 ml @ 100 mls/hr Q12 IVPB Last administered on 05/15/16 09:10; Admin Dose 100 MLS/HR; Start 05/13/16 at 21:00 Fluconazole (Diflucan) 100 mg DAILY PO Last administered on 05/15/16 09:10; Admin Dose 100 MG; Start 05/13/16 at 11:30 Nystatin (Nystatin Powder) 1 applic BID TOP Last administered on 05/15/16 09: 11; Admin Dose 1 APPLIC; Start 05/13/16 at 21:00 Famotidine (Pepcid) 20 mg DAILY PO Last administered on 05/15/16 09:10; Admin Dose 20 MG; Start 05/13/16 at 14:00 Lactobacillus Acidoph/Bulgaricus (Floranex) 1 tab BID PO Last administered on 09:10; Admin Dose 1 TAB; Start 05/13/16 at 14:00 CHRIS TOPETE MD May 15, 2016 14:09
[2016-05-15] MEDS ORDERED: MAGNESIUM SULFATE 3 GM in SOD CHLORIDE 0.9% 100 ML IVPB ONE (14:30)
--- NOTE | 2016-05-15 19:22 | PN ---
DATE: 05/15/2016 SUBJECTIVE: Uninhibited bladder contraction. The patient has a history of neurogenic bladder, urin tiff retention. The patient today has no more urinary incontinence and he is not leaking around the Gonzalez catheter. He has been on oxybutynin and this seems to be helping a lot. He initially had aug mentation cystoplasty 10 years ago and he was doing self-catheterization, but since [facility], he has had the indwelling Gonzalez catheter. OBJECTIVE: VITAL SIGNS: Temperature is 98.1, pulse is 57 and the last one was 65, respirations 17, blood press ure 126/83. ABDOMEN: Soft and the Gonzalez catheter is draining clear urine. LABORATORY DATA: The urine culture no growth in 24 hours. CBC shows a white count of 9.4, hemoglob in 10.6. BUN 17, creatinine 0.43. IMPRESSION: Neurogenic bladder, uninhibited bladder contractions that has been managed and responde d with oxybutynin 5 mg 3 times a day. PLAN: Continue the same. Dictated By: ION LEVI MD BB/BRADY Conf#: [id number] DID#: [id number] CC: VELMA CAVANAUGH MD;*EndCC*
[2016-05-15] MEDS: SENNA/DOCUSATE NA (8.6MG/50MG) TAB PO SCH (21:30)
[2016-05-16] VITALS (25 sets, daily range): BP systolic 69–146; BP diastolic 46–108; PULSE 65–95; RESP 11–24
[2016-05-16] MEDS: HYDROmorphONE 2 MG/ML SYG IV PRN ×8 (00:33→23:15)
[2016-05-16] MEDS: VANCOMYCIN 1.5 GM in SOD CHLORIDE 0.9% 250 ML IVPB SCH ×2 (02:13→14:50)
[2016-05-16 04:53] LABS: BASOPHILS % 0.3 % (0.0-2.0); EOSINOPHILS # 0.6 10^3/ul (0.0-0.5); EOSINOPHILS % 6.3 % (0.0-7.0); HEMOGLOBIN 10.8 g/dl (14.0-18.0); LYMPHOCYTES # 3.3 10^3/ul (0.8-2.9); LYMPHOCYTES % 36.4 % (15.0-51.0); MEAN CORPUSCULAR HEMOGLOBIN 28.3 pg (29.0-33.0); MEAN CORPUSCULAR HGB CONC 33.7 g/dl (32.0-37.0); MEAN PLATELET VOLUME 7.4 fl (7.4-10.4); MONOCYTE # 0.8 10^3/ul (0.3-0.9); MONOCYTES % 9.3 % (0.0-11.0); NEUTROPHIL # 4.3 10^3/ul (1.6-7.5); NEUTROPHILS % 47.7 % (39.0-77.0); PLATELET COUNT 316 10^3/UL (140-440); RED BLOOD COUNT 3.81 10^6/ul (4.70-6.10); RED CELL DISTRIBUTION WIDTH 15.1 % (11.5-14.5); UNCORRECTED WBC 9.1 10^3/ul (4.8-10.8); WHITE BLOOD COUNT 9.1 10^3/ul (4.8-10.8)
[2016-05-16 05:05] LABS: POTASSIUM 4.3 mmol/L (3.5-5.1)
[2016-05-16 05:08] LABS: CREATININE 0.46 mg/dl (0.61-1.24)
[2016-05-16 05:09] LABS: CALCIUM 9.2 mg/dl (8.4-10.2); MAGNESIUM 1.3 mg/dl (1.7-2.5); PHOSPHORUS 4.5 mg/dl (2.5-4.9)
[2016-05-16 05:41] LABS: CONDITION 1; LH ANALYZER COMMENTS 1
[2016-05-16] MEDS: LACTOBACILLUS CHEW TAB PO SCH ×2 (10:19→21:12)
[2016-05-16] MEDS: FLUCONAZOLE 100 MG TAB PO SCH (10:19)
[2016-05-16] MEDS: FAMOTIDINE 20 MG TAB PO SCH (10:19)
[2016-05-16] MEDS: morphine (ER) 15 MG TAB PO SCH ×2 (10:19→21:12)
[2016-05-16] MEDS: OXYBUTYNIN 5 MG TAB PO SCH ×3 (10:19→21:12)
[2016-05-16] MEDS: NYSTATIN 30 GM POWDER BTL TOP SCH ×2 (10:20→21:16)
[2016-05-16] MEDS: NEOMYC/POLYMYX/BACIT 30 GM OINT TOP SCH ×3 (10:20→21:16)
[2016-05-16] MEDS: CEFEPIME 1GM/50 ML (PMX) 50 ML IVPB SCH ×2 (10:30→21:11)
--- NOTE | 2016-05-16 12:22 | PN ---
DATE: 05/16/2016 SUBJECTIVE: No acute changes. Patient is alert, lying comfortably in bed, no fevers. LABORATORY DATA: WBC 9.1, no shift, no bands. BUN 16, creatinine 0.46. MICROBIOLOGY: All cultures have been negative since May 07. INDWELLINGS: PICC line, Gonzalez and ventriculostomy. ANTIMICROBIALS: 1. Vancomycin. 2. Cefepime. PHYSICAL EXAMINATION: GENERAL: This is a morbidly obese, well-developed young man who is alert, in no distress. HEENT: Head atraumatic, normocephalic. Sclerae anicteric. Buccal mucosa pink. NECK: Supple, trachea midline. CHEST: Rise symmetrical. Breath sounds diminished to bases. HEART: S1, S2. ABDOMEN: Soft, bowel tones present. EXTREMITIES: Bilateral trace edema. ASSESSMENT: 1. Status post sepsis. 2. Resolving right chest cellulitis, status post retained tubing being removed, whose culture grew Morganella and coagulase-negative staph species. 3. Fungal excoriation of the neck, improving. 4. Status post VRE urinary tract infection. 5. Status post encephalopathy secondary to EXHIBITS MANAGER shunt malfunction, status post ventriculostomy. 6. Morbid obesity. 7. History of spina bifida. PLAN: The patient remains stable. His right chest still has a scab with some small amount of drain age; however, does not look infected. We will add gentamicin topical to that area. Continue antibi otics pending EXHIBITS MANAGER shunt placement. Dictated By: PAT RODRIGUEZ EEO OFFICER for DIAN AVILA/BRADY Conf#: [id number] DID#: [id number]
[2016-05-16] MEDS: GENTAMICIN 0.1% 15 GM OINT TOP SCH ×2 (13:27→21:16)
--- NOTE | 2016-05-16 20:39 | PN ---
DATE: 05/16/2016 SUBJECTIVE: Urinary incontinence around the Gonzalez catheter. The patient has neurogenic bladder. T he patient was placed on oxybutynin 5 mg every 8 hours, and he has since done well, and the urine ou tput is good and the urine is clear. OBJECTIVE: His vital signs show a temperature of 98.6, respiration is 15, blood pressure 134/76, pu lse is 78. LABORATORY DATA: His CBC shows a white count of 9.1, hemoglobin 10.8, hematocrit 32.0. BUN is 16, creatinine 0.46. Urine culture: No growth after 48 hours. IMPRESSION: Uninhibited bladder contraction. PLAN: Continue the oxybutynin 5 mg every 8 hours. Dictated By: ION THAKUR/BRADY Conf#: [id number] DID#: [id number]
[2016-05-16] MEDS: SENNA/DOCUSATE NA (8.6MG/50MG) TAB PO SCH (21:12)
[2016-05-17] VITALS (32 sets, daily range): BP systolic 107–150; BP diastolic 51–133; PULSE 58–109; RESP 11–24
[2016-05-17] MEDS: ALTEPLASE (CATHFLO) 2 MG INJ CATHETER PRN (01:36)
[2016-05-17] MEDS: HYDROmorphONE 2 MG/ML SYG IV PRN ×7 (02:11→21:58)
[2016-05-17 02:39] LABS: BASOPHIL # 0.1 10^3/ul (0.0-0.1); BASOPHILS % 0.6 % (0.0-2.0); EOSINOPHILS # 0.5 10^3/ul (0.0-0.5); EOSINOPHILS % 5.2 % (0.0-7.0); HEMATOCRIT 34.3 % (42.0-52.0); HEMOGLOBIN 11.4 g/dl (14.0-18.0); LYMPHOCYTES # 3.7 10^3/ul (0.8-2.9); LYMPHOCYTES % 35.7 % (15.0-51.0); MEAN CORPUSCULAR HEMOGLOBIN 27.9 pg (29.0-33.0); MEAN CORPUSCULAR HGB CONC 33.3 g/dl (32.0-37.0); MEAN CORPUSCULAR VOLUME 83.8 fl (82.0-101.0); MEAN PLATELET VOLUME 7.5 fl (7.4-10.4); MONOCYTE # 0.8 10^3/ul (0.3-0.9); MONOCYTES % 7.3 % (0.0-11.0); NEUTROPHIL # 5.3 10^3/ul (1.6-7.5); NEUTROPHILS % 51.2 % (39.0-77.0); PLATELET COUNT 341 10^3/UL (140-440); RED BLOOD COUNT 4.09 10^6/ul (4.70-6.10); RED CELL DISTRIBUTION WIDTH 15.1 % (11.5-14.5); UNCORRECTED WBC 10.4 10^3/ul (4.8-10.8); WHITE BLOOD COUNT 10.4 10^3/ul (4.8-10.8)
[2016-05-17 02:41] LABS: CONDITION 1; LH ANALYZER COMMENTS 1
[2016-05-17 02:43] LABS: PARTIAL THROMBOPLASTIN TIME 26.1 Sec (25.0-35.0); POTASSIUM 4.1 mmol/L (3.5-5.1)
[2016-05-17 02:46] LABS: CREATININE 0.44 mg/dl (0.61-1.24)
[2016-05-17 02:47] LABS: CALCIUM 9.5 mg/dl (8.4-10.2)
[2016-05-17] MEDS: VANCOMYCIN 1.5 GM in SOD CHLORIDE 0.9% 250 ML IVPB SCH (03:07)
[2016-05-17 03:13] LABS: INR 0.98; PROTIME 12.8 Sec (12.2-14.2)
[2016-05-17] MEDS: FLUCONAZOLE 100 MG TAB PO SCH (09:23)
[2016-05-17] MEDS: NYSTATIN 30 GM POWDER BTL TOP SCH ×2 (09:24→20:32)
[2016-05-17] MEDS: NEOMYC/POLYMYX/BACIT 30 GM OINT TOP SCH (09:24)
[2016-05-17] MEDS: GENTAMICIN 0.1% 15 GM OINT TOP SCH ×3 (09:25→20:31)
[2016-05-17] MEDS: FAMOTIDINE 20 MG TAB PO SCH (09:29)
[2016-05-17] MEDS: morphine (ER) 15 MG TAB PO SCH ×2 (09:29→20:31)
[2016-05-17] MEDS: LACTOBACILLUS CHEW TAB PO SCH ×2 (09:29→20:30)
[2016-05-17] MEDS: OXYBUTYNIN 5 MG TAB PO SCH ×3 (09:29→20:31)
[2016-05-17] MEDS: CEFEPIME 1GM/50 ML (PMX) 50 ML IVPB SCH ×2 (09:32→20:30)
[2016-05-17] MEDS ORDERED: MAGNESIUM SULFATE 3 GM in SOD CHLORIDE 0.9% 100 ML IVPB STA (10:46)
[2016-05-17] MEDS ORDERED: MAGNESIUM SULFATE 3 GM in SOD CHLORIDE 0.9% 100 ML IVPB ONE (11:00)
--- NOTE | 2016-05-17 12:32 | CONS ---
Date/Time of Note Date/Time of Note DATE: 05/17/16 TIME: 12:28 Assessment/Plan Assessment/Plan Chief Complaint/Hosp Course Very pleasant 26 y/o male with pmh: Spina Bifida, depression, chronic headaches with hydrocephalus. Pt had VPS placement as a child but most recently underwent multiple bilateral AUTOMOTIVE SALESPERSON (Abd/Pleural) shunt placements with Dr. Triplett starting 2008 and most recent left vps revision was performed at [facility] by Dr. Triplett as well. Pt presents with bifrontal HAs. Per Dr. Triplett's notes states possible non functioning left vps due to "scarring in the peritoneal cavity not allowing enough surface for CSF absorption area." Dr. Triplett / Dr. Castelan (partner) did not feel comfortable performing ventricular atrial shunt and transfer was then requested. pmh/psx: per hpi/chart meds: see med recon ros: per hpi/chart Problems: Additional Assessment/Plan left EVD placement right chest wall infection improved fungal neck infection has improved - pt has been cleared by ID NO neurological changes to pt's mental status All risk , complications, benefits thoroughly discussed as preprinted in Dr. Bernal's preop consent form. all questions answered and no guarantees given. plan cleared by ID for procedure Right VPS possible Pleural placement today ICU post op IV antibiotics per ID ICU management per ICU team. Consultation Date/Type/Reason Admit Date/Time Apr 18, 2016 at 18:55 Initial Consult Date 04/19/16 Type of Consultation: ID Reason for Consultation follow Exam/Review of Systems Vital Signs Vitals Vital Signs Date Time Temp Pulse Resp B/P Pulse Ox O2 Delivery O2 Flow Rate FiO2 05/17/16 10:00 64 16 112/60 94 Room Air 05/17/16 08:00 98.0 Intake and Output 05/16/16 05/16/16 05/17/16 15:00 23:00 07:00 Intake Total 850 ml 1050 ml Output Total 628 ml 1414 ml 979 ml Balance 222 ml -364 ml -979 ml Exam Neurological: other (MS: AAOX4 CN: PERRL M: FC bilat UE, 0/5 LE, ) Skin: other (right chest wall infection resolving. Fungal infection to neck has impoving ) Results Result Diagram: 05/17/16 0200 05/17/16 0200 Results 24 hrs Laboratory Tests Test 05/17/16 02:00 05/17/16 09:30 Activated Partial Thromboplast Time 26.1 Anion Gap 16 Basophils # 0.1 Basophils % 0.6 Blood Morphology Comment Blood Urea Nitrogen 16 Calcium Level 9.5 Carbon Dioxide Level 29 Chloride Level 98 Creatinine 0.44 L Eosinophils # 0.5 Eosinophils % 5.2 Glucose Level 91 Hematocrit 34.3 L Hemoglobin 11.4 L INR International Normalized Ratio 0.98 Lymphocytes # 3.7 H Lymphocytes % 35.7 Mean Corpuscular Hemoglobin 27.9 L Mean Corpuscular Hemoglobin Concent 33.3 Mean Corpuscular Volume 83.8 Mean Platelet Volume 7.5 Monocytes # 0.8 Monocytes % 7.3 Neutrophils # 5.3 Neutrophils % 51.2 Nucleated Red Blood Cells # 0.0 Nucleated Red Blood Cells % 0.0 Platelet Count 341 Potassium Level 4.1 Prothrombin Time 12.8 Prothrombin Time Ratio 1.0 Red Blood Count 4.09 L Red Cell Distribution Width 15.1 H Sodium Level 139 Vancomycin Level Trough 16.3 White Blood Count 10.4 Magnesium Level 1.3 L Medications Medications Current Medications Ondansetron HCl (Zofran Inj) 4 mg Q6H PRN IV NAUSEA AND/OR VOMITING Last administered on 04/30/16 16:47; Admin Dose 4 MG; Start 04/18/16 at 20:30 Docusate Sodium (Colace) 100 mg Q12H PRN PO CONSTIPATION; Start 04/19/16 at 10: 30 Bisacodyl (Dulcolax) 5 mg DAILY PRN PO CONSTIPATION; Start 04/19/16 at 10:30 Bisacodyl (Dulcolax Supp) 10 mg DAILY PRN [place] CONSTIPATION; Start 04/19/16 at 10 :30 Senna/Docusate Sodium (Senokot-S) 2 tab HS PO Last administered on 05/16/16 21 :12; Admin Dose 2 TAB; Start 04/20/16 at 21:00 Hydralazine HCl (Apresoline) 5 mg Q6H PRN IV sbp above 160 Last administered on 04/30/16 18:39; Admin Dose 5 MG; Start 04/26/16 at 15:00 IV Flush (NS 10 ml) 10 ml PRN PRN IV IV PROTOCOL; Start 05/01/16 at 16:30 Morphine Sulfate (Ms Contin (Er)) 15 mg BID PO Last administered on 05/17/16 09:29; Admin Dose 15 MG; Start 05/06/16 at 21:00 Hydromorphone HCl (Dilaudid) 2 mg Q3H PRN IV PAIN Last administered on 12:23; Admin Dose 2 MG; Start 05/10/16 at 12:00 Neomycin/ Polymyxin/ Bacitracin (Neosporin Topical Oint) 1 applic TID TOP Last administered on 05/17/16 09:24; Admin Dose 1 APPLIC; Start 05/10/16 at 18:30 Oxybutynin Chloride 5 mg 5 mg TID PO Last administered on 05/17/16 09:29; Admin Dose 5 MG; Start 05/13/16 at 09:00 Cefepime HCl (Maxipime 1gm/50 ml (Pmx)) 50 ml @ 100 mls/hr Q12 IVPB Last administered on 05/17/16 09:32; Admin Dose 100 MLS/HR; Start 05/13/16 at 21:00 Fluconazole (Diflucan) 100 mg DAILY PO Last administered on 05/17/16 09:23; Admin Dose 100 MG; Start 05/13/16 at 11:30 Nystatin (Nystatin Powder) 1 applic BID TOP Last administered on 05/17/16 09: 24; Admin Dose 1 APPLIC; Start 05/13/16 at 21:00 Famotidine (Pepcid) 20 mg DAILY PO Last administered on 05/17/16 09:29; Admin Dose 20 MG; Start 05/13/16 at 14:00 Lactobacillus Acidoph/Bulgaricus (Floranex) 1 tab BID PO Last administered on 09:29; Admin Dose 1 TAB; Start 05/13/16 at 14:00 Gentamicin Sulfate 1 applic 1 applic TID TOP Last administered on 05/17/16 09: 25; Admin Dose 1 APPLIC; Start 05/16/16 at 13:00 Vancomycin HCl 1.25 gm/Sodium Chloride 250 ml @ 83.333 mls/ hr Q12H IVPB ; Start 05/17/16 at 14:00 Magnesium Sulfate/ Sodium Chloride (Magnesium Sulfate/NS) 106 ml @ 35.333 mls/ hr ONCE ONCE IVPB Last administered on 05/17/16 11:17; Admin Dose 35.333 MLS/ HR; Start 05/17/16 at 11:00; Stop 05/17/16 at 13:59 ALEX MOTA ROTARY ENVELOPE 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 May 17, 2016 12:32
--- NOTE | 2016-05-17 12:50 | HPN ---
Date/Time of Note Date/Time of Note DATE: 05/17/16 TIME: 12:44 Interval H&P Admission Note Neurosurgery Consult Follow-up No interval change Pt has been cleared by ID and right chest wall / neck region infection has been improved. Surgery today Dispo: ICU post op ALEX MOTA NP May 17, 2016 12:50
[2016-05-17] MEDS ORDERED: ROCURONIUM 50 MG INJ ONE (13:46)
[2016-05-17] MEDS ORDERED: NEOSTIGMINE 3 MG/3 ML SYRINGE ONE (13:46)
[2016-05-17] MEDS ORDERED: SUCCINYLCHOLINE CHLORIDE 100 MG/5 ML SYG IV ONE (13:46)
[2016-05-17] MEDS ORDERED: PROPOFOL 20 ML ONE (13:46)
[2016-05-17] MEDS ORDERED: MEPERIDINE 100 MG INJ ONE (13:46)
[2016-05-17] MEDS ORDERED: LIDOCAINE 2% (SDV) 5 ML INJ ONE (13:46)
[2016-05-17] MEDS ORDERED: GLYCOPYRROLATE 0.4 MG INJ ONE (13:46)
--- NOTE | 2016-05-17 14:20 | CONS ---
Date/Time of Note Date/Time of Note DATE: 05/17/16 TIME: 14:19 Assessment/Plan Assessment/Plan Chief Complaint/Hosp Course SUBJECTIVE: No acute changes. Patient is alert, lying comfortably in bed, no fevers. MICROBIOLOGY: All cultures have been negative since May 07. INDWELLINGS: PICC line, Gonzalez and ventriculostomy. ANTIMICROBIALS: 1. Vancomycin. 2. Cefepime. 3. Gentamicin topical PHYSICAL EXAMINATION: GENERAL: This is a morbidly obese, well-developed young man who is alert, in no distress. HEENT: Head atraumatic, normocephalic. Sclerae anicteric. Buccal mucosa pink. NECK: Supple, trachea midline. CHEST: Rise symmetrical. Breath sounds diminished to bases. HEART: S1, S2. ABDOMEN: Soft, bowel tones present. EXTREMITIES: Bilateral trace edema. ASSESSMENT: 1. Status post sepsis. 2. Resolving right chest cellulitis, status post retained tubing being removed , whose culture grew Morganella and coagulase-negative staph species. 3. Fungal excoriation of the neck, improving. 4. Status post VRE urinary tract infection. 5. Status post encephalopathy secondary to COMB FIXER shunt malfunction, status post ventriculostomy. 6. Morbid obesity. 7. History of spina bifida. PLAN: The patient remains stable. Scheduled for VPS, continue abx staff Problems: Consultation Date/Type/Reason Admit Date/Time Apr 18, 2016 at 18:55 Initial Consult Date 04/19/16 Type of Consultation: ID Exam/Review of Systems Vital Signs Vitals Vital Signs Date Time Temp Pulse Resp B/P Pulse Ox O2 Delivery O2 Flow Rate FiO2 05/17/16 13:00 82 15 134/83 95 Room Air 05/17/16 11:00 98.3 Intake and Output 05/16/16 05/16/16 05/17/16 15:00 23:00 07:00 Intake Total 850 ml 1050 ml Output Total 628 ml 1414 ml 979 ml Balance 222 ml -364 ml -979 ml Results Result Diagram: 05/17/16 0200 05/17/16 0200 Results 24 hrs Laboratory Tests Test 05/17/16 02:00 05/17/16 09:30 Activated Partial Thromboplast Time 26.1 Anion Gap 16 Basophils # 0.1 Basophils % 0.6 Blood Morphology Comment Blood Urea Nitrogen 16 Calcium Level 9.5 Carbon Dioxide Level 29 Chloride Level 98 Creatinine 0.44 L Eosinophils # 0.5 Eosinophils % 5.2 Glucose Level 91 Hematocrit 34.3 L Hemoglobin 11.4 L INR International Normalized Ratio 0.98 Lymphocytes # 3.7 H Lymphocytes % 35.7 Mean Corpuscular Hemoglobin 27.9 L Mean Corpuscular Hemoglobin Concent 33.3 Mean Corpuscular Volume 83.8 Mean Platelet Volume 7.5 Monocytes # 0.8 Monocytes % 7.3 Neutrophils # 5.3 Neutrophils % 51.2 Nucleated Red Blood Cells # 0.0 Nucleated Red Blood Cells % 0.0 Platelet Count 341 Potassium Level 4.1 Prothrombin Time 12.8 Prothrombin Time Ratio 1.0 Red Blood Count 4.09 L Red Cell Distribution Width 15.1 H Sodium Level 139 Vancomycin Level Trough 16.3 White Blood Count 10.4 Magnesium Level 1.3 L Medications Medications Current Medications Ondansetron HCl (Zofran Inj) 4 mg Q6H PRN IV NAUSEA AND/OR VOMITING Last administered on 04/30/16 16:47; Admin Dose 4 MG; Start 04/18/16 at 20:30 Docusate Sodium (Colace) 100 mg Q12H PRN PO CONSTIPATION; Start 04/19/16 at 10: 30 Bisacodyl (Dulcolax) 5 mg DAILY PRN PO CONSTIPATION; Start 04/19/16 at 10:30 Bisacodyl (Dulcolax Supp) 10 mg DAILY PRN [place] CONSTIPATION; Start 04/19/16 at 10 :30 Senna/Docusate Sodium (Senokot-S) 2 tab HS PO Last administered on 05/16/16 21 :12; Admin Dose 2 TAB; Start 04/20/16 at 21:00 Hydralazine HCl (Apresoline) 5 mg Q6H PRN IV sbp above 160 Last administered on 04/30/16 18:39; Admin Dose 5 MG; Start 04/26/16 at 15:00 IV Flush (NS 10 ml) 10 ml PRN PRN IV IV PROTOCOL; Start 05/01/16 at 16:30 Morphine Sulfate (Ms Contin (Er)) 15 mg BID PO Last administered on 05/17/16 09:29; Admin Dose 15 MG; Start 05/06/16 at 21:00 Hydromorphone HCl (Dilaudid) 2 mg Q3H PRN IV PAIN Last administered on 12:23; Admin Dose 2 MG; Start 05/10/16 at 12:00 Oxybutynin Chloride 5 mg 5 mg TID PO Last administered on 05/17/16 09:29; Admin Dose 5 MG; Start 05/13/16 at 09:00 Cefepime HCl (Maxipime 1gm/50 ml (Pmx)) 50 ml @ 100 mls/hr Q12 IVPB Last administered on 05/17/16 09:32; Admin Dose 100 MLS/HR; Start 05/13/16 at 21:00 Fluconazole (Diflucan) 100 mg DAILY PO Last administered on 05/17/16 09:23; Admin Dose 100 MG; Start 05/13/16 at 11:30 Nystatin (Nystatin Powder) 1 applic BID TOP Last administered on 05/17/16 09: 24; Admin Dose 1 APPLIC; Start 05/13/16 at 21:00 Famotidine (Pepcid) 20 mg DAILY PO Last administered on 05/17/16 09:29; Admin Dose 20 MG; Start 05/13/16 at 14:00 Lactobacillus Acidoph/Bulgaricus (Floranex) 1 tab BID PO Last administered on 09:29; Admin Dose 1 TAB; Start 05/13/16 at 14:00 Gentamicin Sulfate 1 applic 1 applic TID TOP Last administered on 05/17/16 09: 25; Admin Dose 1 APPLIC; Start 05/16/16 at 13:00 Vancomycin HCl/ Sodium Chloride (Vancocin/NS) 250 ml @ 83.333 mls/ hr Q12H IVPB ; Start 05/17/16 at 14:00 PAT RODRIGUEZ NP May 17, 2016 14:20
[2016-05-17] MEDS ORDERED: LABETALOL HCL 20MG INJ ONE (14:34)
[2016-05-17] MEDS ORDERED: FENTAnyl 50 MCG/ML VIAL ONE (15:35)
[2016-05-17 15:54] LABS: # OF CELLS COUNTED 100
[2016-05-17] MEDS: VANCOMYCIN 1.25 GM in SOD CHLORIDE 0.9% 250 ML IVPB SCH (15:55)
[2016-05-17] MEDS ORDERED: METOCLOPRAMIDE 10 MG INJ IV PRN (16:00)
[2016-05-17] MEDS ORDERED: hydrALAzine 20 MG INJ IV PRN (16:00)
[2016-05-17] MEDS ORDERED: FENTAnyl 50 MCG/ML VIAL IV PRN ×2 (16:00)
[2016-05-17] MEDS ORDERED: MIDAZOLAM 1 MG/ML 2 ML INJ IV PRN (16:00)
[2016-05-17] MEDS ORDERED: DIPHENHYDRAMINE 50 MG INJ IV PRN (16:00)
[2016-05-17] MEDS ORDERED: ONDANSETRON 4 MG INJ IV PRN (16:00)
[2016-05-17] MEDS ORDERED: MEPERIDINE 25 MG INJ IV PRN (16:00)
[2016-05-17] MEDS ORDERED: LABETALOL HCL 20MG INJ IV PRN (16:00)
[2016-05-17] MEDS ORDERED: HYDROmorphONE 1 MG/ML SYG IV PRN ×2 (16:00)
--- NOTE | 2016-05-17 16:14 | PN ---
Date/Time of Note Date/Time of Note DATE: 05/17/16 TIME: 16:13 Assessment/Plan VTE Prophylaxis VTE Prophylaxis Intervention: contraindicated (bleeding risk) Lines/Catheters IV Catheter Type (from Nrsg): A Line Urinary Cath still in place: Yes Reason Cath still needed: urinary retention Assessment/Plan Chief Complaint/Hosp Course S: 05/13-events noted 05/14-still states of having continuous pain. No change in speech. Hungry. 05/15- no events. 05/16- no events 05/17- sp evp managing director shunt. no dyspnea. O: vss PE: No pallor/ droop; anisocoria S1S2, no m/r/g ctab Bs + nt, nd, no r/r/g. Obese. Scars c/d/i Hypotonia A/P 1. Headache. Shunt malfunction, stable. Sp L VPS externalization & EVD placement ; now sp Rt ASBESTOS WORKER HELPER Shunt. 2. Chr hydrocephalus. 3. Chr pain disorder. 4. Ftt; PT/OT soon 5. Possible nonadherence 6. Neurogenic bladder; [place] [place] 7. Recent mdr UTI/ vre 8. Anemia 9. Chest wall/ neck excoriation/ cellulitis. stable. Problems: Exam/Review of Systems Vital Signs Vitals Vital Signs Date Time Temp Pulse Resp B/P Pulse Ox O2 Delivery O2 Flow Rate FiO2 05/17/16 16:03 Simple Mask 6.0 05/17/16 15:53 97.6 05/17/16 15:47 78 14 137/66 100 Intake and Output 05/16/16 05/16/16 05/17/16 15:00 23:00 07:00 Intake Total 850 ml 1050 ml Output Total 628 ml 1414 ml 979 ml Balance 222 ml -364 ml -979 ml Results Result Diagram: 05/17/16 0200 05/17/16 0200 Results 24 hrs Laboratory Tests Test 05/17/16 02:00 05/17/16 09:30 Activated Partial Thromboplast Time 26.1 Anion Gap 16 Basophils # 0.1 Basophils % 0.6 Blood Morphology Comment Blood Urea Nitrogen 16 Calcium Level 9.5 Carbon Dioxide Level 29 Chloride Level 98 Creatinine 0.44 L Eosinophils # 0.5 Eosinophils % 5.2 Glucose Level 91 Hematocrit 34.3 L Hemoglobin 11.4 L INR International Normalized Ratio 0.98 Lymphocytes # 3.7 H Lymphocytes % 35.7 Mean Corpuscular Hemoglobin 27.9 L Mean Corpuscular Hemoglobin Concent 33.3 Mean Corpuscular Volume 83.8 Mean Platelet Volume 7.5 Monocytes # 0.8 Monocytes % 7.3 Neutrophils # 5.3 Neutrophils % 51.2 Nucleated Red Blood Cells # 0.0 Nucleated Red Blood Cells % 0.0 Platelet Count 341 Potassium Level 4.1 Prothrombin Time 12.8 Prothrombin Time Ratio 1.0 Red Blood Count 4.09 L Red Cell Distribution Width 15.1 H Sodium Level 139 Vancomycin Level Trough 16.3 White Blood Count 10.4 Magnesium Level 1.3 L Medications Medications Current Medications Ondansetron HCl (Zofran Inj) 4 mg Q6H PRN IV NAUSEA AND/OR VOMITING Last administered on 04/30/16 16:47; Admin Dose 4 MG; Start 04/18/16 at 20:30 Docusate Sodium (Colace) 100 mg Q12H PRN PO CONSTIPATION; Start 04/19/16 at 10: 30 Bisacodyl (Dulcolax) 5 mg DAILY PRN PO CONSTIPATION; Start 04/19/16 at 10:30 Bisacodyl (Dulcolax Supp) 10 mg DAILY PRN [place] CONSTIPATION; Start 04/19/16 at 10 :30 Senna/Docusate Sodium (Senokot-S) 2 tab HS PO Last administered on 05/16/16 21 :12; Admin Dose 2 TAB; Start 04/20/16 at 21:00 Hydralazine HCl (Apresoline) 5 mg Q6H PRN IV sbp above 160 Last administered on 04/30/16 18:39; Admin Dose 5 MG; Start 04/26/16 at 15:00 IV Flush (NS 10 ml) 10 ml PRN PRN IV IV PROTOCOL; Start 05/01/16 at 16:30 Morphine Sulfate (Ms Contin (Er)) 15 mg BID PO Last administered on 05/17/16 09:29; Admin Dose 15 MG; Start 05/06/16 at 21:00 Hydromorphone HCl (Dilaudid) 2 mg Q3H PRN IV PAIN Last administered on 15:52; Admin Dose 2 MG; Start 05/10/16 at 12:00 Oxybutynin Chloride 5 mg 5 mg TID PO Last administered on 05/17/16 09:29; Admin Dose 5 MG; Start 05/13/16 at 09:00 Cefepime HCl (Maxipime 1gm/50 ml (Pmx)) 50 ml @ 100 mls/hr Q12 IVPB Last administered on 05/17/16 09:32; Admin Dose 100 MLS/HR; Start 05/13/16 at 21:00 Fluconazole (Diflucan) 100 mg DAILY PO Last administered on 05/17/16 09:23; Admin Dose 100 MG; Start 05/13/16 at 11:30 Nystatin (Nystatin Powder) 1 applic BID TOP Last administered on 05/17/16 09: 24; Admin Dose 1 APPLIC; Start 05/13/16 at 21:00 Famotidine (Pepcid) 20 mg DAILY PO Last administered on 05/17/16 09:29; Admin Dose 20 MG; Start 05/13/16 at 14:00 Lactobacillus Acidoph/Bulgaricus (Floranex) 1 tab BID PO Last administered on 09:29; Admin Dose 1 TAB; Start 05/13/16 at 14:00 Gentamicin Sulfate 1 applic 1 applic TID TOP Last administered on 05/17/16 09: 25; Admin Dose 1 APPLIC; Start 05/16/16 at 13:00 Vancomycin HCl/ Sodium Chloride (Vancocin/NS) 250 ml @ 83.333 mls/ hr Q12H IVPB Last administered on 05/17/16 15:55; Admin Dose 83.333 MLS/HR; Start at 14:00 CHRIS TOPETE MD May 17, 2016 16:14
[2016-05-17 16:37] LABS: GLUCOSE,CSF 43 mg/dl (50-80)
[2016-05-17 16:59] LABS: CSF COLOR COLORLESS
[2016-05-17 17:00] LABS: %CREANATED RBC CSF 90 %; CSF#TUBE COUNT TUBE#1; CSF#TUBES REC'D 1
[2016-05-17 17:04] LABS: CSF EOSINOPHIL 1 %
[2016-05-17] MEDS: SENNA/DOCUSATE NA (8.6MG/50MG) TAB PO SCH (20:30)
[2016-05-17 21:27] LABS: POTASSIUM 4.4 mmol/L (3.5-5.1)
[2016-05-17 21:30] LABS: CALCIUM 8.8 mg/dl (8.4-10.2); CREATININE 0.35 mg/dl (0.61-1.24); MAGNESIUM 1.6 mg/dl (1.7-2.5)
[2016-05-17] MEDS ORDERED: MAGNESIUM SULFATE 2 GM/50 ML 50 ML IVPB ONE (22:30)
--- NOTE | 2016-05-17 23:01 | RADRPT ---
PROCEDURE: CT Head without. CLINICAL INDICATION: Shunt placement. TECHNIQUE: The study was performed utilizing a multi-slice, multidetector CT scanner. Direct spira l 1 mm axial sections were obtained through the head without the use of intravenous contrast materia l. 1 or more of the following dose reduction techniques were utilized: Automated exposure control, adjustment of the mA and/or kV according to patient's size, iterative reconstruction technique. Co guera and sagittal reformations were obtained. The images were reviewed on a PACS workstation. RADIATION DOSE: CTDIvol: 40.5 mGyDLP: 831.4 mGy-cm COMPARISON: 05/01/2016, 04/27/2016, 04/19/2016 FINDINGS: There has been interval shunt revision, with removal of the previously visualized left parietal appr oach ventriculostomy. There is a new right parietal approach ventriculostomy with tip in the right foramen of Monro. There is significantly improved size of the lateral ventricles, with significant interval decreased size. The temporal horns are not enlarged. There is a trace amount of residual pneumocephalus within the anterior aspect of the right frontal lobe. No definite interventricular h emorrhage is seen. There is no intracranial hemorrhage, extra-axial fluid collection, mass lesion, midline shift or hydrocephalus. The ventricles, sulci and cisterns are within normal limits. The w andrez matter is unremarkable. The mcgregor-white matter differentiation is preserved. The basal cistern s are patent. The midline structures are intact. The orbits, calvarium and extracranial soft tissu es are normal in appearance. The visualized paranasal sinuses, mastoid air cells and middle ear cavities are normally aerated. IMPRESSION: 1. Interval shunt revision with placement of right parietal approach ventriculostomy with tip in th e right foramen of Monro. There is significantly improved size of the lateral ventricles, which are within normal limits in size. No evidence of residual hydrocephalous. There has been removal of t he prior left parietal shunt. 2. No intracranial hemorrhage, extra-axial fluid collection, mass lesion or hydrocephalous. RPTAT: HGAS .Etienne De Jesus MD, MD Date Time Electronically viewed and signed by .Etienne De Jesus MD, on 05/17/2016 23:01 .S/
[2016-05-18] VITALS (29 sets, daily range): BP systolic 113–166; BP diastolic 49–90; PULSE 63–118; RESP 12–22
[2016-05-18] MEDS: HYDROmorphONE 2 MG/ML SYG IV PRN ×9 (01:03→23:07)
[2016-05-18] MEDS: VANCOMYCIN 1.25 GM in SOD CHLORIDE 0.9% 250 ML IVPB SCH ×2 (01:57→15:16)
[2016-05-18] MEDS: CEFEPIME 1GM/50 ML (PMX) 50 ML IVPB SCH ×2 (08:48→21:16)
[2016-05-18] MEDS: morphine (ER) 15 MG TAB PO SCH ×2 (09:00→21:03)
[2016-05-18] MEDS: NYSTATIN 30 GM POWDER BTL TOP SCH ×2 (09:32→21:03)
[2016-05-18] MEDS: LACTOBACILLUS CHEW TAB PO SCH ×2 (09:32→21:02)
[2016-05-18] MEDS: OXYBUTYNIN 5 MG TAB PO SCH ×3 (09:33→21:02)
[2016-05-18] MEDS: GENTAMICIN 0.1% 15 GM OINT TOP SCH ×3 (09:33→21:03)
[2016-05-18] MEDS: FLUCONAZOLE 100 MG TAB PO SCH (09:33)
[2016-05-18] MEDS: FAMOTIDINE 20 MG TAB PO SCH (09:33)
--- NOTE | 2016-05-18 12:24 | CONS ---
Date/Time of Note Date/Time of Note DATE: 05/18/16 TIME: 12:17 Assessment/Plan Assessment/Plan Chief Complaint/Hosp Course Very pleasant 26 y/o male with pmh: Spina Bifida, depression, chronic headaches with hydrocephalus. Pt had VPS placement as a child but most recently underwent multiple bilateral NICU RN (Abd/Pleural) shunt placements with Dr. Triplett starting 2008 and most recent left vps revision was performed at [facility] by Dr. Triplett as well. Pt presents with bifrontal HAs. Per Dr. Triplett's notes states possible non functioning left vps due to "scarring in the peritoneal cavity not allowing enough surface for CSF absorption area." Dr. Triplett / Dr. Castelan (partner) did not feel comfortable performing ventricular atrial shunt and transfer was then requested. pmh/psx: per hpi/chart meds: see med recon ros: per hpi/chart Problems: Additional Assessment/Plan s/p right VPS placement. POD #[address] stable CT chest - pending plan cont supportive care pt/ot if CT chest shows good placement, okay to downgrade from NS point of view dc planning in 1-2 days if medically cleared. follow up Dr. Bernal in 2 weeks. Consultation Date/Type/Reason Admit Date/Time Apr 18, 2016 at 18:55 Initial Consult Date 04/19/16 Type of Consultation: ID Reason for Consultation S: S/P Right Ventriculopleural shunt placement. POD #1 Exam/Review of Systems Vital Signs Vitals Vital Signs Date Time Temp Pulse Resp B/P Pulse Ox O2 Delivery O2 Flow Rate FiO2 05/18/16 09:30 108 15 146/76 92 Room Air 05/18/16 08:00 98.2 05/17/16 16:03 6.0 Intake and Output 05/17/16 05/17/16 05/18/16 15:00 23:00 07:00 Intake Total 1090 ml 502.9 ml Output Total 1010 ml 1735 ml 770 ml Balance -1010 ml -645 ml -267.1 ml Exam Neurological: other (MS: AAOX4 CN: PERRL M: FC bilat UE, 0/5 LE ) Results Result Diagram: 05/17/16 0200 05/17/166 Results 24 hrs Laboratory Tests Test 05/17/16 15:11 05/17/16 20:46 05/18/16 04:00 CSF Appearance CLEAR CSF Cell Count Tube # TUBE#1 CSF Color COLORLESS CSF Crenated Cells 90 CSF Eosinophils % 1 CSF Glucose 43 L CSF Lymphocytes % 82 CSF Monocytes % 15 CSF Neutrophils % 2 CSF RBC 451 H CSF Total Cells Counted 100 CSF Total Protein 39 CSF Tubes Submitted 1 CSF Volume 6.0 CSF WBC 23 *H Anion Gap 18 H Blood Urea Nitrogen 14 Calcium Level 8.8 Carbon Dioxide Level 25 Chloride Level 104 Creatinine 0.35 L Glucose Level 94 Magnesium Level 1.6 L 1.9 Potassium Level 4.4 Sodium Level 143 Medications Medications Current Medications Ondansetron HCl (Zofran Inj) 4 mg Q6H PRN IV NAUSEA AND/OR VOMITING Last administered on 04/30/16 16:47; Admin Dose 4 MG; Start 04/18/16 at 20:30 Docusate Sodium (Colace) 100 mg Q12H PRN PO CONSTIPATION; Start 04/19/16 at 10: 30 Bisacodyl (Dulcolax) 5 mg DAILY PRN PO CONSTIPATION; Start 04/19/16 at 10:30 Bisacodyl (Dulcolax Supp) 10 mg DAILY PRN [place] CONSTIPATION; Start 04/19/16 at 10 :30 Senna/Docusate Sodium (Senokot-S) 2 tab HS PO Last administered on 05/17/16 20 :30; Admin Dose 2 TAB; Start 04/20/16 at 21:00 Hydralazine HCl (Apresoline) 5 mg Q6H PRN IV sbp above 160 Last administered on 04/30/16 18:39; Admin Dose 5 MG; Start 04/26/16 at 15:00 IV Flush (NS 10 ml) 10 ml PRN PRN IV IV PROTOCOL; Start 05/01/16 at 16:30 Morphine Sulfate (Ms Contin (Er)) 15 mg BID PO Last administered on 05/17/16 20:31; Admin Dose 15 MG; Start 05/06/16 at 21:00 Hydromorphone HCl (Dilaudid) 2 mg Q3H PRN IV PAIN Last administered on 12:13; Admin Dose 2 MG; Start 05/10/16 at 12:00 Oxybutynin Chloride 5 mg 5 mg TID PO Last administered on 05/18/16 09:33; Admin Dose 5 MG; Start 05/13/16 at 09:00 Cefepime HCl (Maxipime 1gm/50 ml (Pmx)) 50 ml @ 100 mls/hr Q12 IVPB Last administered on 05/18/16 08:48; Admin Dose 100 MLS/HR; Start 05/13/16 at 21:00 Fluconazole (Diflucan) 100 mg DAILY PO Last administered on 05/18/16 09:33; Admin Dose 100 MG; Start 05/13/16 at 11:30 Nystatin (Nystatin Powder) 1 applic BID TOP Last administered on 05/18/16 09: 32; Admin Dose 1 APPLIC; Start 05/13/16 at 21:00 Famotidine (Pepcid) 20 mg DAILY PO Last administered on 05/18/16 09:33; Admin Dose 20 MG; Start 05/13/16 at 14:00 Lactobacillus Acidoph/Bulgaricus (Floranex) 1 tab BID PO Last administered on 09:32; Admin Dose 1 TAB; Start 05/13/16 at 14:00 Gentamicin Sulfate 1 applic 1 applic TID TOP Last administered on 05/18/16 09: 33; Admin Dose 1 APPLIC; Start 05/16/16 at 13:00 Vancomycin HCl/ Sodium Chloride (Vancocin/NS) 250 ml @ 83.333 mls/ hr Q12H IVPB Last administered on 05/18/16 01:57; Admin Dose 83.333 MLS/HR; Start at 14:00 Miscellaneous Information (*Rx Drug Level Order Reminder*) VANCOMYCIN TROUGH AT 1300 ONCE ONCE XX ; Start 05/19/16 at 13:00; Stop 05/19/16 at 13:01 ALEX MOTA NP May 18, 2016 12:24
--- NOTE | 2016-05-18 13:43 | PN ---
DATE: 05/18/2016 SUBJECTIVE: Uninhibited bladder contractions and leakage around the Gonzalez catheter. The patient had his AXLE TURNER shunt reviewed yesterday and the Gonzalez catheter is draining well, and clear u rine. I had started him on oxybutynin 5 mg every 8 hours and there is no more leakage around the ca theter. The patient is very comfortable. OBJECTIVE: VITAL SIGNS: Temperature is 98.3, pulse 105, respirations 17, blood pressure 134/69. ABDOMEN: Soft. EXTERNAL GENITALIA: Gonzalez is draining clear urine. LABORATORY DATA: CBC shows a white count of 10.4, hemoglobin 11.4, hematocrit 34.3. The BUN is 14, creatinine 0.35. Electrolytes are normal. IMPRESSION: 1. Uninhibited bladder contractions. 2. Neurogenic bladder. PLAN: Continue the oxybutynin 5 mg every 8 hours. Dictated By: ION THAKUR/BRADY Conf#: [id number] DID#: [id number]
[2016-05-18] MEDS ORDERED: LACTOBACILLUS CHEW TAB PO SCH (14:00)
[2016-05-18] MEDS ORDERED: OXYCODONE/ACETAMINOPHEN (10/325) TAB PO PRN (14:00)
--- NOTE | 2016-05-18 14:14 | PN ---
DATE: 05/18/2016 SUBJECTIVE: No acute changes. The patient is alert, feels good, looks comfortable. Denies pain, d iscomfort. No fevers. VITAL SIGNS: Temperature 98.3, pulse 105, respirations 17, blood pressure 134/69, saturation 92% on room air. LABORATORY DATA: No labs this morning. INDWELLINGS: EVP MANAGING DIRECTOR shunt, Gonzalez, PICC line. ANTIMICROBIALS: The patient is on: 1. Cefepime. 2. Vancomycin. 3. He is also on Diflucan. 4. He is getting topical gentamicin to right chest wound. PHYSICAL EXAMINATION: GENERAL: Obese, well-developed young man who is lying comfortably in bed. HEENT: Head atraumatic, normocephalic. Sclerae anicteric. Buccal mucosa pink. NECK: Supple, trachea midline. CHEST: Rise symmetrical. Breath sounds clear. HEART: S1, S2. ABDOMEN: Soft, bowel sounds present. EXTREMITIES: With bilateral trace edema. ASSESSMENT: 1. Status post sepsis. 2. Status post vancomycin-resistant enterococci urinary tract infection. 3. Right chest cellulitis, resolving, with culture grew Morganella morganii and coagulase-negative staph species. 4. Hydrocephalus status post EVP MANAGING DIRECTOR shunt placement, postop day #1. 5. Morbid obesity. 6. History of spina bifida. PLAN: The patient remains stable. Continue present care, antibiotics. Follow neurosurgical recomm endations. Dictated By: PAT RODRIGUEZ STEWARD/STEWARDESS SECOND for DIAN AVILA/NTS Conf#: [id number] DID#: [id number]
--- NOTE | 2016-05-18 14:30 | RADRPT ---
PROCEDURE: CT Chest without contrast. CLINICAL INDICATION: F/U RT VPS PLACEMENT/ PLEURAL PLACEMENT TECHNIQUE: CT scan of the chest without contrast was performed on a multidetector high-resolution CT scanner. Coronal and sagittal reformatted images were obtained from the axial source images. The total exam CTDI equals 16.7 mGy and the total exam DLP equals 648.5 mGy-cm. One or more of the following dose reduction techniques were used: - Automated exposure control. - Adjustment of the mA and/or kV according to patient size. Use of iterative reconstruction technique. COMPARISON: Chest x-ray 05/01/2016. FINDINGS: There is a 3 mm calcified pleural-based nodule in the periphery of the superior segment of the right lower lobe. There is a 1.5 mm as a there is a 1 mm nodule abutting the pleural see surface ventral and inferior to this in the superior segment the right lower lobe. There is atelectasis in the rig ht lower lobe. There is a 2 mm granuloma in the periphery of the right upper lobe. There are plate-like densities in the superior segments of the right left lower lobes in the medial aspects of the right left lower lobes consistent with atelectasis. There is peribronchial cuffing i n the a bronchial stent into the right and left lower lung arredondo. There is pleural calcific plaqui ng in the dorsal right pleural space. There is a small bore central venous catheter entering the right side of the neck from right interna l jugular approach which should be reassessed of the chest x-ray. Proper positioning is not sure th is catheter. There is a PICC line catheter into the right arm with its tip in the superior vena cava. Heart is normal in size. The main pulmonary artery and pulmonary artery outflow tracts are normal i n size. There is a trace pericardial effusion. No enlarged hilar or mediastinal lymph nodes are id entified. The great vessels of the superior mediastinum are normal. The vocal cords and thyroid gl and are unremarkable. There is a 9 ml right paratracheal lymph node. There is a 1.4 by 1.7 cm larg e subcarinal lymph node. The liver is enlarged measuring 21.2 cm AP. There is a 1.2 cm lesion in the ventral right lobe of th e liver this is unchanged when compared to the CT abdomen pelvis dated 04/29/2016. There are clips i n the bonifacio hepatis area. The spleen is normal. The pancreas is normal. There is no hiatal hernia. The stomach is normal. There is fecal material throughout the colon. T he small bowel loops are unremarkable. The visible portions of the kidneys and both adrenal glands are normal. There is small degenerative osteophytes in the lower thoracic spine. There is mild kyphosis of the lower thoracic spine. There is a wedge of vertebra in the lower thoracic spine. IMPRESSION: 1. There is calcific plaquing of the right pleural space with peripheral plate-like areas of atelec tasis in the right lower lobe. The additional plate-like densities consistent with parenchymal scar ring or atelectasis in the right lower lobe, lingula and in the periphery of the right middle lobe. 2. Bronchiolitis. 3. There is a percutaneous drainage tube entering the right abdomen adjacent to the right lobe of t he liver. 4. 1.2 cm lesion in the lateral segment of the left lobe of the liver which is unchanged compared t o 04/29/2016. Further characterization with ultrasound is recommended. 5. Hepatomegaly. 6. Status post cholecystectomy. 7. Constipation. 8. Trace pericardial effusion. 9. There are multiple small granulomas in the right lung as described. 10. The chest x-ray is recommended to assess a small bore central venous catheter which enters the right side of the neck with is not appear to rest in the internal jugular vein. 11. Satisfactory position of a PICC line catheter entering the right arm with its tip in the superi or vena cava. 12. 9 mm azygos lymph node. Enlarged subcarinal lymph nodes measuring up to 1.8 cm which may be re active in nature lisa RPTAT:AAJJ Physician Tashi Date Time Electronically viewed and signed by Lance Reagan Physician on 05/18/2016 14:30 /
[2016-05-18] MEDS ORDERED: BISACODYL (EC) 5 MG TAB PO PRN (20:30)
[2016-05-18] MEDS: SENNA/DOCUSATE NA (8.6MG/50MG) TAB PO SCH (21:03)
--- NOTE | 2016-05-18 21:17 | RADRPT ---
PROCEDURE: XR Chest. CLINICAL INDICATION: Shortness of breath. FORENSIC PSYCHOLOGIST shunt catheter placement. TECHNIQUE: Single frontal view. COMPARISON: 05/01/2016. FINDINGS: There is a right-sided FORENSIC PSYCHOLOGIST shunt catheter and a right PICC line in satisfactory position. There is m ild atelectasis at the lung bases. The lungs are otherwise clear. The heart size is normal. There is no pleural effusion. There is no pneumothorax. IMPRESSION: 1. Right FORENSIC PSYCHOLOGIST shunt catheter. 2. Right arm PICC line. 3. Mild atelectasis at the lung bases. 4. Otherwise unremarkable study. RPTAT: QQ .Avery Vizcarra MD, MD Date Time Electronically viewed and signed by .Avery Vizcarra MD, MD on 05/18/2016 21:17 .R/
[2016-05-19] VITALS (9 sets, daily range): BP systolic 117–164; BP diastolic 67–91; PULSE 82–101; RESP 16–18
[2016-05-19] MEDS: VANCOMYCIN 1.25 GM in SOD CHLORIDE 0.9% 250 ML IVPB SCH ×2 (01:14→15:42)
[2016-05-19] MEDS: HYDROmorphONE 2 MG/ML SYG IV PRN ×8 (01:41→22:05)
[2016-05-19 07:09] LABS: BASOPHILS % 0.4 % (0.0-2.0); EOSINOPHILS # 0.6 10^3/ul (0.0-0.5); EOSINOPHILS % 6.5 % (0.0-7.0); HEMATOCRIT 31.9 % (42.0-52.0); HEMOGLOBIN 10.6 g/dl (14.0-18.0); LYMPHOCYTES # 2.7 10^3/ul (0.8-2.9); MEAN CORPUSCULAR HGB CONC 33.2 g/dl (32.0-37.0); MEAN CORPUSCULAR VOLUME 84.2 fl (82.0-101.0); MEAN PLATELET VOLUME 7.7 fl (7.4-10.4); MONOCYTE # 0.9 10^3/ul (0.3-0.9); MONOCYTES % 9.4 % (0.0-11.0); NEUTROPHIL # 4.9 10^3/ul (1.6-7.5); NEUTROPHILS % 53.7 % (39.0-77.0); PLATELET COUNT 324 10^3/UL (140-440); POTASSIUM 3.9 mmol/L (3.5-5.1); RED BLOOD COUNT 3.79 10^6/ul (4.70-6.10); RED CELL DISTRIBUTION WIDTH 14.6 % (11.5-14.5); UNCORRECTED WBC 9.1 10^3/ul (4.8-10.8); WHITE BLOOD COUNT 9.1 10^3/ul (4.8-10.8)
[2016-05-19 07:12] LABS: CREATININE 0.46 mg/dl (0.61-1.24)
[2016-05-19 07:13] LABS: CALCIUM 9.3 mg/dl (8.4-10.2)
[2016-05-19 07:34] LABS: CONDITION 1; LH ANALYZER COMMENTS 1
[2016-05-19] MEDS: GENTAMICIN 0.1% 15 GM OINT TOP SCH ×3 (09:07→21:24)
[2016-05-19] MEDS: NYSTATIN 30 GM POWDER BTL TOP SCH ×2 (09:07→21:25)
[2016-05-19] MEDS: FAMOTIDINE 20 MG TAB PO SCH (09:08)
[2016-05-19] MEDS: LACTOBACILLUS CHEW TAB PO SCH ×2 (09:09→21:24)
[2016-05-19] MEDS: morphine (ER) 15 MG TAB PO SCH ×2 (09:09→21:24)
[2016-05-19] MEDS: FLUCONAZOLE 100 MG TAB PO SCH (09:14)
[2016-05-19] MEDS: OXYBUTYNIN 5 MG TAB PO SCH ×3 (10:00→21:24)
[2016-05-19] MEDS: CEFEPIME 1GM/50 ML (PMX) 50 ML IVPB SCH ×2 (10:01→21:21)
--- NOTE | 2016-05-19 11:27 | PN ---
Date/Time of Note Date/Time of Note DATE: 05/19/16 TIME: 11:23 Assessment/Plan VTE Prophylaxis VTE Prophylaxis Intervention: anti-embolic stocking, LMWH Lines/Catheters IV Catheter Type (from Nrsg): PICC Line Central line still needed: Yes (iv antibiotics) Urinary Cath still in place: Yes Reason Cath still needed: urinary retention Assessment/Plan Chief Complaint/Hosp Course S: 05/13-events noted 05/14-still states of having continuous pain. No change in speech. Hungry. 05/15- no events. 05/16- no events 05/17- sp vp strategic planning shunt. no dyspnea. 218: Less pain post surgery 05/19 no events. Some issues of nonadherence. O: vss PE: No pallor/ droop; anisocoria S1S2, no m/r/g ctab Bs + nt, nd, no r/r/g. Obese. Scars c/d/i Hypotonia A/P 1. Headache; Shunt malfunction, stable. Sp L VPS externalization & EVD placement ; now POD2 Rt MACHINIST MATE Shunt. -Start Lovenox, PT/OT/transfer training if ok w neurosurgery. 2. Chr hydrocephalus. 3. Chr pain disorder. 4. Ftt; PT/OT soon; home with home health versus significant due to deconditioning following Friday. 5. Nnonadherence 6. Neurogenic bladder; [facility] [place] booker to leg bag vs scheduled emptying? 7. Recent mdr UTI/ vre 8. Anemia 9. Chest wall/ neck excoriation/ cellulitis. stable. Problems: Exam/Review of Systems Vital Signs Vitals Vital Signs Date Time Temp Pulse Resp B/P Pulse Ox O2 Delivery O2 Flow Rate FiO2 05/19/16 07:17 98.6 91 18 157/70 98 05/19/16 07:08 Room Air 05/17/16 16:03 6.0 Intake and Output 05/18/16 05/18/16 05/19/16 15:00 23:00 07:00 Intake Total 300 ml 730 ml 490.099 ml Output Total 705 ml 1145 ml 770 ml Balance -405 ml -415 ml -279.901 ml Results Result Diagram: 05/19/16 0629 05/19/16 0629 Results 24 hrs Laboratory Tests Test 05/19/16 06:29 Anion Gap 14 Basophils # 0.0 Basophils % 0.4 Blood Morphology Comment Blood Urea Nitrogen 12 Calcium Level 9.3 Carbon Dioxide Level 29 Chloride Level 99 Creatinine 0.46 L Eosinophils # 0.6 H Eosinophils % 6.5 Glucose Level 93 Hematocrit 31.9 L Hemoglobin 10.6 L Lymphocytes # 2.7 Lymphocytes % 30.0 Mean Corpuscular Hemoglobin 28.0 L Mean Corpuscular Hemoglobin Concent 33.2 Mean Corpuscular Volume 84.2 Mean Platelet Volume 7.7 Monocytes # 0.9 Monocytes % 9.4 Neutrophils # 4.9 Neutrophils % 53.7 Nucleated Red Blood Cells # 0.0 Nucleated Red Blood Cells % 0.0 Platelet Count 324 Potassium Level 3.9 Red Blood Count 3.79 L Red Cell Distribution Width 14.6 H Sodium Level 138 White Blood Count 9.1 Medications Medications Current Medications Ondansetron HCl (Zofran Inj) 4 mg Q6H PRN IV NAUSEA AND/OR VOMITING Last administered on 04/30/16 16:47; Admin Dose 4 MG; Start 04/18/16 at 20:30 Docusate Sodium (Colace) 100 mg Q12H PRN PO CONSTIPATION Last administered on 15:16; Admin Dose 100 MG; Start 04/19/16 at 10:30 Bisacodyl (Dulcolax Supp) 10 mg DAILY PRN [place] CONSTIPATION; Start 04/19/16 at 10 :30 Senna/Docusate Sodium (Senokot-S) 2 tab HS PO Last administered on 05/18/16 21 :03; Admin Dose 2 TAB; Start 04/20/16 at 21:00 Hydralazine HCl (Apresoline) 5 mg Q6H PRN IV sbp above 160 Last administered on 04/30/16 18:39; Admin Dose 5 MG; Start 04/26/16 at 15:00 IV Flush (NS 10 ml) 10 ml PRN PRN IV IV PROTOCOL; Start 05/01/16 at 16:30 Morphine Sulfate (Ms Contin (Er)) 15 mg BID PO Last administered on 05/19/16 09:09; Admin Dose 15 MG; Start 05/06/16 at 21:00 Hydromorphone HCl (Dilaudid) 2 mg Q3H PRN IV PAIN Last administered on 10:01; Admin Dose 2 MG; Start 05/10/16 at 12:00 Oxybutynin Chloride 5 mg 5 mg TID PO Last administered on 05/19/16 10:00; Admin Dose 5 MG; Start 05/13/16 at 09:00 Cefepime HCl (Maxipime 1gm/50 ml (Pmx)) 50 ml @ 100 mls/hr Q12 IVPB Last administered on 05/19/16 10:01; Admin Dose 100 MLS/HR; Start 05/13/16 at 21:00 Fluconazole (Diflucan) 100 mg DAILY PO Last administered on 05/19/16 09:14; Admin Dose 100 MG; Start 05/13/16 at 11:30 Nystatin (Nystatin Powder) 1 applic BID TOP Last administered on 05/19/16 09: 07; Admin Dose 1 APPLIC; Start 05/13/16 at 21:00 Famotidine (Pepcid) 20 mg DAILY PO Last administered on 05/19/16 09:08; Admin Dose 20 MG; Start 05/13/16 at 14:00 Lactobacillus Acidoph/Bulgaricus (Floranex) 1 tab BID PO Last administered on 09:09; Admin Dose 1 TAB; Start 05/13/16 at 14:00 Gentamicin Sulfate 1 applic 1 applic TID TOP Last administered on 05/19/16 09: 07; Admin Dose 1 APPLIC; Start 05/16/16 at 13:00 Vancomycin HCl/ Sodium Chloride (Vancocin/NS) 250 ml @ 83.333 mls/ hr Q12H IVPB Last administered on 05/19/16 01:14; Admin Dose 83.333 MLS/HR; Start at 14:00 Miscellaneous Information (*Rx Drug Level Order Reminder*) VANCOMYCIN TROUGH AT 1300 ONCE ONCE XX ; Start 05/19/16 at 13:00; Stop 05/19/16 at 13:01 Oxycodone/ Acetaminophen (Endocet (10/ 325)) 1 tab Q3H PRN PO PAIN; Start 05/18 at 14:00 Bisacodyl (Dulcolax) 10 mg DAILY PRN PO CONSTIPATION; Start 05/18/16 at 20:30 CHRIS TOPETE MD May 19, 2016 11:27
[2016-05-19] MEDS ORDERED: VITAMIN A & D 5 GM OINT PACKET TOP ONE (13:04)
--- NOTE | 2016-05-19 18:24 | CONS ---
Date/Time of Note Date/Time of Note DATE: 05/19/16 TIME: 18:23 Assessment/Plan Assessment/Plan Chief Complaint/Hosp Course SUBJECTIVE: No acute changes. Tx to [facility] surg floor, alert, feels good, looks comfortable. Denies pain, discomfort. No fevers. INDWELLINGS: BUYER BROKER shunt, Gonzalez, PICC line. ANTIMICROBIALS: The patient is on: 1. Cefepime. 2. Vancomycin. 3. Diflucan. 4. Topical gentamicin to right chest wound. PHYSICAL EXAMINATION: GENERAL: Obese, well-developed young man who is lying comfortably in bed. HEENT: Head atraumatic, normocephalic. Sclerae anicteric. Buccal mucosa pink. NECK: Supple, trachea midline. CHEST: Rise symmetrical. Breath sounds clear. HEART: S1, S2. ABDOMEN: Soft, bowel sounds present. EXTREMITIES: With bilateral trace edema. ASSESSMENT: 1. Status post sepsis. 2. Status post vancomycin-resistant enterococci urinary tract infection. 3. Right chest cellulitis, resolving, with culture grew Morganella morganii and coagulase-negative staph species. 4. Hydrocephalus status post BUYER BROKER shunt placement, postop day #1. 5. Morbid obesity. 6. History of spina bifida. PLAN: The patient remains stable. Continue present care, antibiotics. Follow neurosurgical recommendations. [facility] staff Problems: Consultation Date/Type/Reason Admit Date/Time Apr 18, 2016 at 18:55 Initial Consult Date 04/19/16 Type of Consultation: ID Exam/Review of Systems Vital Signs Vitals Vital Signs Date Time Temp Pulse Resp B/P Pulse Ox O2 Delivery O2 Flow Rate FiO2 05/19/16 07:17 98.6 91 18 157/70 98 05/19/16 07:08 Room Air 05/17/16 16:03 6.0 Intake and Output 05/18/16 05/18/16 05/19/16 15:00 23:00 07:00 Intake Total 300 ml 730 ml 490.099 ml Output Total 705 ml 1145 ml 770 ml Balance -405 ml -415 ml -279.901 ml Results Result Diagram: 05/19/16 0629 05/19/16 0629 Results 24 hrs Laboratory Tests Test 05/19/16 06:29 05/19/16 13:15 Anion Gap 14 Basophils # 0.0 Basophils % 0.4 Blood Morphology Comment Blood Urea Nitrogen 12 Calcium Level 9.3 Carbon Dioxide Level 29 Chloride Level 99 Creatinine 0.46 L Eosinophils # 0.6 H Eosinophils % 6.5 Glucose Level 93 Hematocrit 31.9 L Hemoglobin 10.6 L Lymphocytes # 2.7 Lymphocytes % 30.0 Mean Corpuscular Hemoglobin 28.0 L Mean Corpuscular Hemoglobin Concent 33.2 Mean Corpuscular Volume 84.2 Mean Platelet Volume 7.7 Monocytes # 0.9 Monocytes % 9.4 Neutrophils # 4.9 Neutrophils % 53.7 Nucleated Red Blood Cells # 0.0 Nucleated Red Blood Cells % 0.0 Platelet Count 324 Potassium Level 3.9 Red Blood Count 3.79 L Red Cell Distribution Width 14.6 H Sodium Level 138 White Blood Count 9.1 Vancomycin Level Trough 11.4 Medications Medications Current Medications Ondansetron HCl (Zofran Inj) 4 mg Q6H PRN IV NAUSEA AND/OR VOMITING Last administered on 04/30/16 16:47; Admin Dose 4 MG; Start 04/18/16 at 20:30 Docusate Sodium (Colace) 100 mg Q12H PRN PO CONSTIPATION Last administered on 15:16; Admin Dose 100 MG; Start 04/19/16 at 10:30 Bisacodyl (Dulcolax Supp) 10 mg DAILY PRN IN CONSTIPATION; Start 04/19/16 at 10 :30 Senna/Docusate Sodium (Senokot-S) 2 tab HS PO Last administered on 05/18/16 21 :03; Admin Dose 2 TAB; Start 04/20/16 at 21:00 Hydralazine HCl (Apresoline) 5 mg Q6H PRN IV sbp above 160 Last administered on 04/30/16 18:39; Admin Dose 5 MG; Start 04/26/16 at 15:00 IV Flush (NS 10 ml) 10 ml PRN PRN IV IV PROTOCOL; Start 05/01/16 at 16:30 Morphine Sulfate (Ms Contin (Er)) 15 mg BID PO Last administered on 05/19/16 09:09; Admin Dose 15 MG; Start 05/06/16 at 21:00 Hydromorphone HCl (Dilaudid) 2 mg Q3H PRN IV PAIN Last administered on 15:45; Admin Dose 2 MG; Start 05/10/16 at 12:00 Oxybutynin Chloride 5 mg 5 mg TID PO Last administered on 05/19/16 12:56; Admin Dose 5 MG; Start 05/13/16 at 09:00 Cefepime HCl (Maxipime 1gm/50 ml (Pmx)) 50 ml @ 100 mls/hr Q12 IVPB Last administered on 05/19/16 10:01; Admin Dose 100 MLS/HR; Start 05/13/16 at 21:00 Fluconazole (Diflucan) 100 mg DAILY PO Last administered on 05/19/16 09:14; Admin Dose 100 MG; Start 05/13/16 at 11:30 Nystatin (Nystatin Powder) 1 applic BID TOP Last administered on 05/19/16 09: 07; Admin Dose 1 APPLIC; Start 05/13/16 at 21:00 Famotidine (Pepcid) 20 mg DAILY PO Last administered on 05/19/16 09:08; Admin Dose 20 MG; Start 05/13/16 at 14:00 Lactobacillus Acidoph/Bulgaricus (Floranex) 1 tab BID PO Last administered on 09:09; Admin Dose 1 TAB; Start 05/13/16 at 14:00 Gentamicin Sulfate 1 applic 1 applic TID TOP Last administered on 05/19/16 12: 57; Admin Dose 1 APPLIC; Start 05/16/16 at 13:00 Vancomycin HCl/ Sodium Chloride (Vancocin/NS) 250 ml @ 83.333 mls/ hr Q12H IVPB Last administered on 05/19/16 15:42; Admin Dose 83.333 MLS/HR; Start at 14:00 Oxycodone/ Acetaminophen (Endocet (10/ 325)) 1 tab Q3H PRN PO PAIN; Start 05/18 at 14:00 Bisacodyl (Dulcolax) 10 mg DAILY PRN PO CONSTIPATION; Start 05/18/16 at 20:30 Enoxaparin Sodium (Lovenox) 40 mg DAILY SC ; Start 05/19/16 at 21:00 PAT RODRIGUEZ NP May 19, 2016 18:24
[2016-05-19] MEDS: ENOXAPARIN 40 MG/0.4 ML SYG SC SCH (21:00)
[2016-05-19] MEDS: SENNA/DOCUSATE NA (8.6MG/50MG) TAB PO SCH (21:24)
[2016-05-20] MEDS: HYDROmorphONE 2 MG/ML SYG IV PRN ×7 (01:04→18:42)
[2016-05-20] MEDS: VANCOMYCIN 1.25 GM in SOD CHLORIDE 0.9% 250 ML IVPB SCH ×2 (01:04→13:34)
[2016-05-20 06:57] LABS: BASOPHILS % 0.3 % (0.0-2.0); EOSINOPHILS # 0.6 10^3/ul (0.0-0.5); EOSINOPHILS % 7.5 % (0.0-7.0); HEMATOCRIT 31.1 % (42.0-52.0); HEMOGLOBIN 10.3 g/dl (14.0-18.0); LYMPHOCYTES # 2.7 10^3/ul (0.8-2.9); LYMPHOCYTES % 33.8 % (15.0-51.0); MEAN CORPUSCULAR HEMOGLOBIN 27.7 pg (29.0-33.0); MEAN CORPUSCULAR VOLUME 83.9 fl (82.0-101.0); MEAN PLATELET VOLUME 7.9 fl (7.4-10.4); MONOCYTE # 0.7 10^3/ul (0.3-0.9); MONOCYTES % 8.9 % (0.0-11.0); NEUTROPHILS % 49.5 % (39.0-77.0); PLATELET COUNT 306 10^3/UL (140-440); RED BLOOD COUNT 3.71 10^6/ul (4.70-6.10); RED CELL DISTRIBUTION WIDTH 14.9 % (11.5-14.5); UNCORRECTED WBC 8.1 10^3/ul (4.8-10.8); WHITE BLOOD COUNT 8.1 10^3/ul (4.8-10.8)
[2016-05-20 07:00] LABS: CONDITION 1; LH ANALYZER COMMENTS 1
[2016-05-20 07:41] LABS: POTASSIUM 3.8 mmol/L (3.5-5.1)
[2016-05-20 07:43] LABS: CREATININE 0.48 mg/dl (0.61-1.24)
[2016-05-20 07:44] LABS: CALCIUM 9.3 mg/dl (8.4-10.2)
[2016-05-20 07:49] VITALS: BP 129/73; RESP 20
[2016-05-20] MEDS: ENOXAPARIN 40 MG/0.4 ML SYG SC SCH (09:00)
[2016-05-20] MEDS: OXYBUTYNIN 5 MG TAB PO SCH ×2 (09:15→12:41)
[2016-05-20] MEDS: CEFEPIME 1GM/50 ML (PMX) 50 ML IVPB SCH (09:15)
[2016-05-20] MEDS: LACTOBACILLUS CHEW TAB PO SCH (09:15)
[2016-05-20] MEDS: FAMOTIDINE 20 MG TAB PO SCH (09:15)
[2016-05-20] MEDS: FLUCONAZOLE 100 MG TAB PO SCH (09:15)
[2016-05-20] MEDS: morphine (ER) 15 MG TAB PO SCH (09:16)
[2016-05-20] MEDS: NYSTATIN 30 GM POWDER BTL TOP SCH (09:17)
[2016-05-20] MEDS: GENTAMICIN 0.1% 15 GM OINT TOP SCH ×2 (09:17→13:34)
--- NOTE | 2016-05-20 12:58 | CONS ---
Date/Time of Note Date/Time of Note DATE: 05/20/16 TIME: 12:58 Assessment/Plan Assessment/Plan Chief Complaint/Hosp Course SUBJECTIVE: No acute changes, alert, feels good, looks comfortable. Denies pain, discomfort. No fevers. INDWELLINGS: SPEECH LANGUAGE PATHOLOGY ASSISTANT shunt, Gonzalez, PICC line. ANTIMICROBIALS: The patient is on: 1. Cefepime. 2. Vancomycin. 3. Diflucan. 4. Topical gentamicin to right chest wound. PHYSICAL EXAMINATION: GENERAL: Obese, well-developed young man who is lying comfortably in bed. HEENT: Head atraumatic, normocephalic. Sclerae anicteric. Buccal mucosa pink. NECK: Supple, trachea midline. CHEST: Rise symmetrical. Breath sounds clear. HEART: S1, S2. ABDOMEN: Soft, bowel sounds present. EXTREMITIES: With bilateral trace edema. ASSESSMENT: 1. Status post sepsis. 2. Status post vancomycin-resistant enterococci urinary tract infection. 3. Right chest cellulitis, resolving, with culture grew Morganella morganii and coagulase-negative staph species. 4. Hydrocephalus status post SPEECH LANGUAGE PATHOLOGY ASSISTANT shunt placement, postop day #1. 5. Morbid obesity. 6. History of spina bifida. PLAN: The patient remains stable. Continue present care, complete antibiotics. Follow neurosurgical recommendations/ rec-s. [facility] staff Problems: Consultation Date/Type/Reason Admit Date/Time Apr 18, 2016 at 18:55 Initial Consult Date 04/19/16 Type of Consultation: ID Exam/Review of Systems Vital Signs Vitals Vital Signs Date Time Temp Pulse Resp B/P Pulse Ox O2 Delivery O2 Flow Rate FiO2 05/20/16 07:49 98.5 86 20 129/73 95 05/19/16 07:08 Room Air 05/17/16 16:03 6.0 Intake and Output 05/19/16 05/19/16 05/20/16 15:00 23:00 07:00 Intake Total 50 ml 1930 ml 500 ml Output Total 1600 ml 200 ml Balance 50 ml 330 ml 300 ml Results Result Diagram: 05/20/16 0508 05/20/16 0508 Results 24 hrs Laboratory Tests Test 05/19/16 13:15 05/20/16 05:08 Vancomycin Level Trough 11.4 Anion Gap 17 H Basophils # 0.0 Basophils % 0.3 Blood Morphology Comment Blood Urea Nitrogen 13 Calcium Level 9.3 Carbon Dioxide Level 27 Chloride Level 100 Creatinine 0.48 L Eosinophils # 0.6 H Eosinophils % 7.5 H Glucose Level 94 Hematocrit 31.1 L Hemoglobin 10.3 L Lymphocytes # 2.7 Lymphocytes % 33.8 Mean Corpuscular Hemoglobin 27.7 L Mean Corpuscular Hemoglobin Concent 33.0 Mean Corpuscular Volume 83.9 Mean Platelet Volume 7.9 Monocytes # 0.7 Monocytes % 8.9 Neutrophils # 4.0 Neutrophils % 49.5 Nucleated Red Blood Cells # 0.0 Nucleated Red Blood Cells % 0.0 Phosphorus Level 4.5 Platelet Count 306 Potassium Level 3.8 Red Blood Count 3.71 L Red Cell Distribution Width 14.9 H Sodium Level 140 White Blood Count 8.1 Medications Medications Current Medications Ondansetron HCl (Zofran Inj) 4 mg Q6H PRN IV NAUSEA AND/OR VOMITING Last administered on 04/30/16 16:47; Admin Dose 4 MG; Start 04/18/16 at 20:30 Docusate Sodium (Colace) 100 mg Q12H PRN PO CONSTIPATION Last administered on 15:16; Admin Dose 100 MG; Start 04/19/16 at 10:30 Bisacodyl (Dulcolax Supp) 10 mg DAILY PRN [place] CONSTIPATION; Start 04/19/16 at 10 :30 Senna/Docusate Sodium (Senokot-S) 2 tab HS PO Last administered on 05/19/16 21 :24; Admin Dose 2 TAB; Start 04/20/16 at 21:00 Hydralazine HCl (Apresoline) 5 mg Q6H PRN IV sbp above 160 Last administered on 04/30/16 18:39; Admin Dose 5 MG; Start 04/26/16 at 15:00 IV Flush (NS 10 ml) 10 ml PRN PRN IV IV PROTOCOL; Start 05/01/16 at 16:30 Morphine Sulfate (Ms Contin (Er)) 15 mg BID PO Last administered on 05/20/16 09:16; Admin Dose 15 MG; Start 05/06/16 at 21:00 Hydromorphone HCl (Dilaudid) 2 mg Q3H PRN IV PAIN Last administered on 09:47; Admin Dose 2 MG; Start 05/10/16 at 12:00 Oxybutynin Chloride 5 mg 5 mg TID PO Last administered on 05/20/16 09:15; Admin Dose 5 MG; Start 05/13/16 at 09:00 Cefepime HCl (Maxipime 1gm/50 ml (Pmx)) 50 ml @ 100 mls/hr Q12 IVPB Last administered on 05/20/16 09:15; Admin Dose 100 MLS/HR; Start 05/13/16 at 21:00 Fluconazole (Diflucan) 100 mg DAILY PO Last administered on 05/20/16 09:15; Admin Dose 100 MG; Start 05/13/16 at 11:30 Nystatin (Nystatin Powder) 1 applic BID TOP Last administered on 05/20/16 09: 17; Admin Dose 1 APPLIC; Start 05/13/16 at 21:00 Famotidine (Pepcid) 20 mg DAILY PO Last administered on 05/20/16 09:15; Admin Dose 20 MG; Start 05/13/16 at 14:00 Lactobacillus Acidoph/Bulgaricus (Floranex) 1 tab BID PO Last administered on 09:15; Admin Dose 1 TAB; Start 05/13/16 at 14:00 Gentamicin Sulfate 1 applic 1 applic TID TOP Last administered on 05/20/16 09: 17; Admin Dose 1 APPLIC; Start 05/16/16 at 13:00 Vancomycin HCl/ Sodium Chloride (Vancocin/NS) 250 ml @ 83.333 mls/ hr Q12H IVPB Last administered on 05/20/16 01:04; Admin Dose 83.333 MLS/HR; Start at 14:00 Oxycodone/ Acetaminophen (Endocet (10/ 325)) 1 tab Q3H PRN PO PAIN; Start 05/18 at 14:00 Bisacodyl (Dulcolax) 10 mg DAILY PRN PO CONSTIPATION; Start 05/18/16 at 20:30 Enoxaparin Sodium (Lovenox) 40 mg DAILY SC ; Start 05/19/16 at 21:00 PAT RODRIGUEZ NP May 20, 2016 12:58
--- NOTE | 2016-05-20 14:56 | PDOCDIS ---
Discharge Instructions CONDITION Patient Condition: Stable HOME CARE INSTRUCTIONS: Special Diet: 1500 LAN. ADA. ACTIVITY: Activity Restrictions: Special Exercises FOLLOW UP/APPOINTMENTS Appointments Follow up with Neurosurgery in 2 weeks Follow up with PCP in 1-2 weeks as out-pt VELMA CAVANAUGH MD May 20, 2016 14:56
[2016-05-20] MEDS ORDERED: FAMO20TA18 PO (15:00)
[2016-05-20] MEDS ORDERED: ACID1TAB14 PO (15:00)
[2016-05-20] MEDS ORDERED: OXYC-279 PO (15:00)
[2016-05-20] MEDS ORDERED: BISA5TAB6 PO (15:00)
[2016-05-20] MEDS ORDERED: OXYB5TAB7 PO (15:00)
[2016-05-20] MEDS ORDERED: NYST15PO4 TOP (15:00)
[2016-05-20 20:02] VITALS: BP 149/70; RESP 18
--- NOTE | 2016-05-21 01:15 | DS ---
DATE OF ADMISSION: 04/18/2016 DATE OF DISCHARGE: 05/20/2016 CONSULTANTS: 1. Infectious Disease. 2. Receptionist/Telephone Operator. 3. Dr. ____. 4. Dr. Anne Bernal. PROCEDURE: Status post left externalization with placement of EVD. DIAGNOSES: 1. Headache with shunt malfunction, status post left ventriculoperitoneal shunt externalization and external ventricular drain placement. 2. Chronic hydrocephalus. 3. Chronic pain disorder. 4. Neurogenic bladder. 5. Recent multidrug-resistant urinary tract infection. 6. Anemia. 7. Cellulitis. MEDICATIONS: 1. ____. 2. Famotidine. 3. Nystatin. 4. Oxybutynin. 5. Lactobacillus. 6. Antibiotics as per infectious disease recommendations. HOSPITAL COURSE: This is an unfortunate 26-year-old gentleman with past medical history of spina bi fida with debility as well as history of right lower extremity chronic wound; quadriplegia as result of spina bifida; recurrent UTI; history of hydrocephalus, status post TRANSPORTATION PLANNING ENGINEER shunt with multiple revisi ons. The patient was transferred from outside hospital for ventriculoatrial shunt after he was acce pted by Dr. Bernal, Neurosurgery. After evaluation by Neurosurgery, the patient was taken to OR for left VPS externalization and EVD placement. The patient tolerated the procedure well, was seen and evaluated by infectious disease doctor and was started on cefepime and vancomycin secondary to urina ry tract infection. The patient also was seen and evaluated by the genitourinary secondary to carroll mcmillan neurogenic bladder, was placed on Gonzalez, and then as per Urology was placed on oxybutynin, which h e has been improving. As per Infectious Disease, the patient has finished his antibiotics, and his last antibiotic needed to be today on 05/20/2016. Waiting for their evaluation prior to discharge. They will write if there is anymore further antibiotic needed. At this time, the patient has been set up by the case supervisor for home health. Secondary to his history of lower extremity ulcer and c ellulitis, he will need wound care. Also, he will need to follow up with Urology and Neurosurgery a s outpatient for re-evaluation of his shunt. At this time, the patient is medically stable for discharge. Vital signs are stable. Temperature 9 8.5, pulse 86, respirations 20, blood pressure 129/73, oxygen saturation 95% in room air. CONDITION: Stable. The patient has been cleared at neurosurgery standpoint for discharge. Dictated By: VELMA GARRETT/BRADY Conf#: [id number] DID#: [id number]
== END 2016-05-20 20:30 | disposition home health service (06) | DRG 28 ==
LOC: MS4 18:55 → ICU 04-26 10:14 → TEL 04-27 19:35 → ICU 05-01 12:20 → MS2 05-19 06:50
PROVIDERS: ADMIT Family Medicine; ATTEND Family Medicine
PROC: 00W60JZ Revision of Synthetic Substitute in Cerebral Ventricle, Open Approach (ICD-10-PCS; 2016-04-26)
PROC: 00P60JZ Removal of Synthetic Substitute from Cerebral Ventricle, Open Approach (ICD-10-PCS; 2016-04-26)
PROC: 02HV33Z Insertion of Infusion Device into Superior Vena Cava, Percutaneous Approach (ICD-10-PCS; 2016-05-01)
PROC: 0WP Anatomical Regions, General, Removal (ICD-10-PCS; 2016-05-07)
PROC: 001U3J6 Bypass Spinal Canal to Peritoneal Cavity with Synthetic Substitute, Percutaneous Approach (ICD-10-PCS; principal; 2016-05-17 12:30)
DX: T85.01XA Breakdown (mechanical) of ventricular intracranial (communicating) shunt, initial encounter (principal); G82.50 Quadriplegia, unspecified; G93.49 Other encephalopathy; A41.9 Sepsis, unspecified organism; L89.302 Pressure ulcer of unspecified buttock, stage 2; Q05.4 Unspecified spina bifida with hydrocephalus; Z68.41 Body mass index [BMI] 40.0-44.9, adult; N39.0 Urinary tract infection, site not specified; L03.313 Cellulitis of chest wall; G89.29 Other chronic pain; S81.801A Unspecified open wound, right lower leg, initial encounter; X58.XXXA Exposure to other specified factors, initial encounter; E66.01 Morbid (severe) obesity due to excess calories; F20.9 Schizophrenia, unspecified; F32.9 Major depressive disorder, single episode, unspecified; I95.9 Hypotension, unspecified; B95.2 Enterococcus as the cause of diseases classified elsewhere; Z16.21 Resistance to vancomycin; T85.79XA Infection and inflammatory reaction due to other internal prosthetic devices, implants and grafts, initial encounter; B95.7 Other staphylococcus as the cause of diseases classified elsewhere; B96.89 Other specified bacterial agents as the cause of diseases classified elsewhere; B36.8 Other specified superficial mycoses; L89.621 Pressure ulcer of left heel, stage 1; L89.611 Pressure ulcer of right heel, stage 1; L89.612 Pressure ulcer of right heel, stage 2; L89.892 Pressure ulcer of other site, stage 2
CPT/HCPCS: 36569; 70250; 70360; 70450; 71010; 71250; 72072; 74000; 74176; 76937; 80048; 80053; 80202; 81001; 81003; 82565; 82945; 83036; 83605; 83735; 84100; 84157; 84443; 84484; 84520; 85025; 85610; 85730; 87040; 87070; 87075; 87081; 87086; 87102; 87116; 88104; 88300; 88304; 89050; 97165; C1729; C1769; J0330; J0360; J0461; J0690; J0692; J1100; J1170; J1200; J1644; J2001; J2175; J2185; J2250; J2270; J2405; J2710; J2997; J3010; J3370; J3475; J3480; J7030; J7040; J7050

== ENCOUNTER 2016-05-25 08:46 | Emergency (ER) | payer OTHER ==
[~2016-05-25] VITALS: Ht 157.5 cm; Wt 86.0 kg
[~2016-05-25 08:46] MED LIST changes: +ACID1TAB14 PO; +BISA5TAB6 PO; -ERTA1VIA IV; +FAMO20TA18 PO; +NYST15PO4 TOP; +OXYB5TAB7 PO; +OXYC-279 PO
[2016-05-25 08:51] VITALS: Ht 157.5 cm; Wt 86.0 kg
[2016-05-25] MEDS ORDERED: ONDANSETRON 4 MG INJ IV STA ×3 (08:55→11:47)
[2016-05-25] MEDS ORDERED: morphine 4 MG/ML VIAL IV STA (08:55)
--- NOTE | 2016-05-25 09:05 | ERD ---
ER Documentation Chief Complaint Date/Time DATE: 05/25/16 TIME: 09:00 Chief Complaint HPI This is a 26-year-old male with a known history of quadriplegia as a result of spina bifida. The patient has a chronic right lower extremity wound on his foot. The patient also has a known history of neurogenic bladder. The patient was recently discharged from [facility] 4 days prior to arrival where he had a 1 month hospitalization and placement of a RUNNER MAN shunt by the neurosurgeon Dr. Bernal. The patient presents to the emergency department today stating that he has been unable to urinate for the past 10 days. The patient had been seen and evaluated by the urologist Dr. Jeffrey as the patient had leakage around his Gonzalez catheter at that time. ROS All systems reviewed and are negative except as per history of present illness. Medications Home Meds Discontinued Scripts Oxycodone HCl/Acetaminophen (Percocet 5-325 mg Tablet) 1 Each Tablet, 1 EACH PO Q6H, #1 TAB Prov:VELMA CAVANAUGH MD 05/20/16 Lactobacillus Acidoph/Bulgaricus* (Floranex*) 1 Each Tablet, 1 TAB PO BID, #30 TAB Prov:VELMA CAVANAUGH MD 05/20/16 Oxybutynin Chloride* (Ditropan*) 5 Mg Tab, 5 MG PO TID, #90 TAB Prov:VELMA CAVANAUGH MD 05/20/16 Nystatin* (Nystop*) 15 Gm Powder, 1 APPLIC TOP BID for 28 Days Prov:VELMA CAVANAUGH MD 05/20/16 Famotidine* (Famotidine*) 20 Mg Tablet, 20 MG PO DAILY, #30 TAB Prov:VELMA CAVANAUGH MD 05/20/16 Bisacodyl* (Bisacodyl*) 5 Mg Tablet.dr, 10 MG PO DAILY Y for CONSTIPATION, #30 Prov:VELMA CAVANAUGH MD 05/20/16 Ertapenem Sodium (Invanz) 1 Gm Vial.port, 1 GM IV DAILY for 7 Days Prov:GIOVANI TAVERAS 04/08/16 Allergies Allergies: Coded Allergies: cefotaxime (Verified Allergy, Intermediate, 05/25/16) latex (Verified Allergy, Intermediate, RASH, 05/25/16) ketorolac (Verified Allergy, Mild, RASH, 05/25/16) oxycodone (Verified Allergy, Mild, swelling of lips, 05/25/16) papaya (Verified Allergy, Mild, 05/25/16) piperacillin sodium (Verified Allergy, Mild, hives, 05/25/16) tazobactam sodium (Verified Allergy, Mild, hives, 05/25/16) acetaminophen (Verified Allergy, Unknown, RASH, 05/25/16) hydrocodone (Verified Allergy, Unknown, RASH, 05/25/16) ibuprofen (Verified Allergy, Unknown, LIP SWELLING, STATED THROAT IS CLOSING, 05/25/16) piperacillin (Verified Allergy, Unknown, 05/25/16) tazobactam (Verified Allergy, Unknown, 05/25/16) PMhx/Soc History of Surgery: Yes (RUNNER MAN SHUNT) Anesthesia Reaction: No Hx Neurological Disorder: No (SPINAL BIFIDA) Hx Respiratory Disorders: No Hx Cardiac Disorders: Yes (HTN) Hx Psychiatric Problems: No Hx Miscellaneous Medical Probl: Yes (spina bifida, chronic headaches, morbid obesity) Hx Alcohol Use: No Hx Substance Use: No Hx Tobacco Use: No Physical Exam Vitals Vital Signs Date Time Temp Pulse Resp B/P Pulse Ox O2 Delivery O2 Flow Rate FiO2 05/25/16 11:30 98.0 86 16 141/89 100 Room Air 05/25/16 08:51 98.6 76 16 151/91 100 Physical Exam Constitutional:Well-developed. Well-nourished. HEENT:Normocephalic. Bath in place over the left occipital scalp from previous shunt placement and incision site was clean dry and intact.Pupils were equal round reactive to light. Moist mucous membranes.No tonsillar exudates. Neck: No nuchal rigidity. No lymphadenopathy. No posterior cervical spine tenderness or step-offs. Respiratory: Not using accessory muscles of respiration.Lungs were clear to auscultation bilaterally. No rhonchi. No rales. No wheezing. Cardiovascular: Regular rate regular rhythm.No murmurs. No rubs were appreciated.S1, S2 normal. Distal pulses are palpable 2+ bilaterally. GI: Abdomen was soft. Nontender. Non Distended. No pulsatile abdominal masses or bruits. No rebound. No guarding. Bowel sounds were present and normal. : No scrotal edema. Hypospadias with no phimosis or paraphimosis. No evidence of Ata's gangrene Muscle skeletal: Patient unable to lift the bilateral lower extremities against gravity as the patient is paralyzed due to spina bifida. Skin: No petechia, no purpura. No lesions on the palms or the soles of the feet. No maculopapular rash. Chronic cellulitis of her plantar surface of right foot with no pain out of proportion, no subcutaneous emphysema. NEURO: Patient was alert, awake, orientated x3. Patient unable to ambulate Result Diagram: 05/25/16 1010 Results 24 hrs Laboratory Tests Test 05/25/16 08:55 05/25/16 10:10 Urine Bacteria FEW Urine Bilirubin NEGATIVE Urine Clarity SLIGHTLY CLOUDY Urine Color LT. YELLOW Urine Glucose NEGATIVE% Urine Hemoglobin 2+ Urine Ketones NEGATIVE Urine Leukocyte Esterase 1+ Urine Microscopic RBC 2-5/HPF Urine Microscopic WBC 25-50/HPF Urine Nitrite NEGATIVE Urine Specific [place] 1.015 Urine Squamous Epithelial Cells FEW Urine Total Protein 1+ Urine Urobilinogen 0.2 E.U./dL Urine pH 6.5 Alanine Aminotransferase (ALT/SGPT) 54IU/L Albumin 4.0g/dl Albumin/Globulin Ratio 0.95 Alkaline Phosphatase 122IU/L Anion Gap 24 Aspartate Amino Transf (AST/SGOT) 40IU/L Blood Urea Nitrogen 13mg/dl Calcium Level 9.2mg/dl Carbon Dioxide Level 20mmol/L Chloride Level 108mmol/L Creatinine 0.46mg/dl Direct Bilirubin 0.00mg/dl Globulin 4.20g/dl Glucose Level 96mg/dl Indirect Bilirubin 0.2mg/dl Potassium Level 3.7mmol/L Sodium Level 148mmol/L Total Bilirubin 0.2mg/dl Total Protein 8.2g/dl Current Medications Medications (Trade) Dose Ordered Sig/Evaristo Route PRN Reason Start Time Stop Time Status Last Admin Dose Admin Morphine Sulfate (morphine) 4 mg ONCE STAT IV 05/25/16 08:55 05/25/16 08:58 DC 05/25/16 09:50 Ondansetron HCl (Zofran Inj) 4 mg ONCE STAT IV 05/25/16 08:55 05/25/16 08:58 DC 05/25/16 09:50 Hydromorphone HCl (Dilaudid) 1 mg ONCE STAT IV 05/25/16 10:33 05/25/16 10:43 DC 05/25/16 10:48 Ondansetron HCl (Zofran Inj) 4 mg ONCE STAT IV 05/25/16 10:33 05/25/16 10:42 DC 05/25/16 10:46 Hydromorphone HCl (Dilaudid) 1 mg ONCE STAT IV 05/25/16 11:47 05/25/16 11:56 DC 05/25/16 11:59 Ondansetron HCl 4 mg 4 mg ONCE STAT IV 05/25/16 11:47 05/25/16 11:48 Cancel Ciprofloxacin/ Dextrose (Cipro Ivpb) 200 ml @ 200 mls/hr ONCE ONCE IVPB 05/25/16 12:00 05/25/16 12:59 05/25/16 12:01 Procedures/MDM This patient presented to the emergency department with urinary retention. The patient had a Gonzalez catheter that was placed without any difficulty. Roughly 100 cc of urine was obtained. Urinalysis indicated a urinary tract infection. I reviewed the urine culture taken on May 14, 2016 at stated there was no growth. The patient has multiple allergies. He was given IV ciprofloxacin in the emergency department For the urinary tract infection. Electrolyte panel showed a mild elevation in serum sodium of 148 with no other electrolyte abnormalities. The patient had a CBC that was obtained however it clotted. A redraw was taken with again the CBC clotting. The patient was refusing any further blood draw at this time and therefore CBC was not able to be obtained. The patient had no fever and no electrolyte abnormalities to suggest severe sepsis. The patient had a significant hospital course with recent discharge 3 days prior to arrival. I explained to the patient that I felt he could be safely discharged with outpatient follow-up with the urologist which had been instructed to him by the previous admitting team when he was discharged 3 days prior to arrival. He was discharged home with a Gonzalez catheter and a leg bag. Observation Note: Time: 5 hours Family Hx: No Hypertension Evaluation: Multiple exams showed improving symptoms and no evidence of sepsis. The patient required multiple doses of analgesic medication as he was requesting Dilaudid and Zofran due to chronic pain. The patient was discharged home in fair condition with a prescription of ciprofloxacin. They were instructed to return to the emergency department at any time if there was any worsening of their condition. The patient stated they would follow up with their PCP in the next 24-48 hours to initiate a suitable medication regimen under the care of their PCP as well as to allow their PCP to monitor any drug reactions. The patient was discharged home with prescriptions after they gave informed consent to the new medication. They were also fully informed by myself on the adverse effects and adverse drug interactions in order to provide adequate safeguards to prevent possible adverse reactions to medications. Departure Diagnosis: Primary Impression: Urinary retention Additional Impression: Urinary tract infection Urinary tract infection type: acute cystitis Hematuria presence: without hematuria Qualified Code: N30.00 - Acute cystitis without hematuria Condition: SAVAGE Gonzalez May 25, 2016 09:05
[2016-05-25 10:28] LABS: POTASSIUM 3.7 mmol/L (3.5-5.1)
[2016-05-25 10:30] LABS: ALBUMIN/GLOBULIN RATIO 0.95; BILIRUBIN,INDIRECT 0.2 mg/dl (0-1.1); BILIRUBIN,TOTAL 0.2 mg/dl (0.2-1.3); CALCIUM 9.2 mg/dl (8.4-10.2); CREATININE 0.46 mg/dl (0.61-1.24); TOTAL PROTEIN 8.2 g/dl (6.1-8.1)
[2016-05-25] MEDS ORDERED: HYDROmorphONE 1 MG/ML SYG IV STA ×2 (10:33→11:47)
[2016-05-25 11:02] LABS: ADD UMIC YES; URINE BILIRUBIN (Dip) NEGATIVE (NEGATIVE); URINE BLOOD (Dip) 2+ (NEGATIVE); URINE COLOR LT. YELLOW (YELLOW); URINE GLUCOSE (Dip) NEGATIVE (NEGATIVE); URINE KETONES (Dip) NEGATIVE (NEGATIVE); URINE LEUKOCYTE ESTERASE (Dip) 1+ (NEGATIVE); URINE NITRITE (Dip) NEGATIVE (NEGATIVE); URINE TOTAL PROTEIN (Dip) 1+ (NEGATIVE); URINE UROBILINOGEN (Dip) 0.2 E.U./dL (0.1-1.0)
[2016-05-25 11:22] LABS: BACTERIA,URINE FEW; SQUAMOUS EPITHELIAL CELL,UR FEW
[2016-05-25] MEDS ORDERED: CIPROFLOXACIN 400MG/D5W 200 ML IVPB ONE (12:00)
[2016-05-25] MEDS ORDERED: CIPR500T4 PO (12:29)
[2016-05-25 13:17] VITALS: BP 141/68; PULSE 89; RESP 16; TEMP 98.1
== END 2016-05-25 13:11 | disposition home or self-care (01) ==
LOC: E/R 08:46
DX: R33.9 Retention of urine, unspecified (principal); N30.00 Acute cystitis without hematuria; I10 Essential (primary) hypertension; E66.01 Morbid (severe) obesity due to excess calories; Z68.34 Body mass index [BMI] 34.0-34.9, adult
CPT/HCPCS: 51702; 80053; 81001; 87086; 96374; 96375; 96376; J0744; J1170; J2270; J2405; Z7502; 81003

== ENCOUNTER 2016-05-26 14:17 | Emergency (ER) | payer OTHER ==
[~2016-05-26] VITALS: Ht 170.2 cm; Wt 100.0 kg
[~2016-05-26 14:17] MED LIST changes: -ACID1TAB14 PO; -BISA5TAB6 PO; +CIPR500T4 PO; -FAMO20TA18 PO; -NYST15PO4 TOP; -OXYB5TAB7 PO; -OXYC-279 PO
[2016-05-26 14:32] VITALS: Ht 170.2 cm; Wt 100.0 kg
[2016-05-26] MEDS ORDERED: SOD CHLORIDE 0.9% 1,000 ML IV STA (15:07)
[2016-05-26] MEDS ORDERED: morphine 4 MG/ML VIAL IV STA (15:07)
[2016-05-26] MEDS ORDERED: ONDANSETRON 4 MG INJ IV STA ×3 (15:07→17:11)
[2016-05-26] MEDS ORDERED: LEVOFLOXACIN 500MG/D5W (PMX) 100 ML IVPB ONE (15:30)
[2016-05-26] MEDS ORDERED: VANCOMYCIN 1 GM (PMX) 250 ML IVPB SCH (15:30)
[2016-05-26 16:03] LABS: ADD SCAN DIFF NO
[2016-05-26 16:06] LABS: BASOPHILS % 0.3 % (0.0-2.0); EOSINOPHILS # 0.8 10^3/ul (0.0-0.5); EOSINOPHILS % 7.8 % (0.0-7.0); HEMATOCRIT 41.7 % (42.0-52.0); HEMOGLOBIN 12.8 g/dl (14.0-18.0); LYMPHOCYTES # 2.6 10^3/ul (0.8-2.9); LYMPHOCYTES % 26.1 % (15.0-51.0); MEAN CORPUSCULAR HEMOGLOBIN 26.7 pg (29.0-33.0); MEAN CORPUSCULAR HGB CONC 30.7 g/dl (32.0-37.0); MEAN CORPUSCULAR VOLUME 87.1 fl (82.0-101.0); MEAN PLATELET VOLUME 9.2 fl (7.4-10.4); MONOCYTE # 0.7 10^3/ul (0.3-0.9); MONOCYTES % 6.7 % (0.0-11.0); NEUTROPHIL # 5.9 10^3/ul (1.6-7.5); NEUTROPHILS % 58.9 % (39.0-77.0); PLATELET COUNT 476 10^3/UL (140-415); RED BLOOD COUNT 4.79 10^6/ul (4.70-6.10); WHITE BLOOD COUNT 10.1 10^3/ul (4.8-10.8)
[2016-05-26 16:16] LABS: ALBUMIN 4.3 g/dl (3.3-4.9)
[2016-05-26 16:17] LABS: POTASSIUM 3.8 mmol/L (3.5-5.1)
[2016-05-26 16:19] LABS: ALBUMIN/GLOBULIN RATIO 0.91; BILIRUBIN,INDIRECT 0.1 mg/dl (0-1.1); BILIRUBIN,TOTAL 0.1 mg/dl (0.2-1.3); CREATININE 0.54 mg/dl (0.61-1.24)
[2016-05-26 16:20] LABS: CALCIUM 9.9 mg/dl (8.4-10.2)
[2016-05-26] MEDS ORDERED: HYDROmorphONE 1 MG/ML SYG IV STA (17:11)
--- NOTE | 2016-05-26 19:06 | ERA ---
ER Documentation Chief Complaint Date/Time DATE: 05/26/16 TIME: 18:45 Chief Complaint BIB RA FOR EVAL OF FEVER AND CHILLS, BACK PAIN. HPI This is a 26-year-old male with a history of spina bifida and RN PERINATAL shunt 2. He is complaining of back pain and fever and chills. The patient has not taken his temperature but says he feels like he has had a fever. Patient normally does self-catheterization. Patient was seen here 2 days ago and had a Gonzalez catheter placed. The patient says he was told he has a urinary tract infection and was given antibiotics but has not started them yet. He has no nausea vomiting or diarrhea no abdominal pain ROS All systems reviewed and are negative except as per history of present illness. Medications Home Meds Active Scripts Ciprofloxacin Hcl* (Ciprofloxacin Hcl*) 500 Mg Tablet, 500 MG PO BID for 10 Days , TAB Prov:SAVAGE MARVIN 05/25/16 Discontinued Scripts Oxycodone HCl/Acetaminophen (Percocet 5-325 mg Tablet) 1 Each Tablet, 1 EACH PO Q6H, #1 TAB Prov:VELMA CAVANAUGH MD 05/20/16 Lactobacillus Acidoph/Bulgaricus* (Floranex*) 1 Each Tablet, 1 TAB PO BID, #30 TAB Prov:VELMA CAVANAUGH MD 05/20/16 Oxybutynin Chloride* (Ditropan*) 5 Mg Tab, 5 MG PO TID, #90 TAB Prov:VELMA CAVANAUGH MD 05/20/16 Nystatin* (Nystop*) 15 Gm Powder, 1 APPLIC TOP BID for 28 Days Prov:VELMA CAVANAUGH MD 05/20/16 Famotidine* (Famotidine*) 20 Mg Tablet, 20 MG PO DAILY, #30 TAB Prov:VELMA CAVANAUGH MD 05/20/16 Bisacodyl* (Bisacodyl*) 5 Mg Tablet.dr, 10 MG PO DAILY Y for CONSTIPATION, #30 Prov:VELMA CAVANAUGH MD 05/20/16 Ertapenem Sodium (Invanz) 1 Gm Vial.port, 1 GM IV DAILY for 7 Days Prov:GIOVANI TAVERAS 04/08/16 Allergies Allergies: Coded Allergies: cefotaxime (Verified Allergy, Intermediate, 05/26/16) latex (Verified Allergy, Intermediate, RASH, 05/26/16) ketorolac (Verified Allergy, Mild, RASH, 05/26/16) oxycodone (Verified Allergy, Mild, swelling of lips, 05/26/16) papaya (Verified Allergy, Mild, 05/26/16) piperacillin sodium (Verified Allergy, Mild, hives, 05/26/16) tazobactam sodium (Verified Allergy, Mild, hives, 05/26/16) acetaminophen (Verified Allergy, Unknown, RASH, 05/26/16) hydrocodone (Verified Allergy, Unknown, RASH, 05/26/16) ibuprofen (Verified Allergy, Unknown, LIP SWELLING, STATED THROAT IS CLOSING, 05/26/16) piperacillin (Verified Allergy, Unknown, 05/26/16) tazobactam (Verified Allergy, Unknown, 05/26/16) PMhx/Soc History of Surgery: Yes (RN PERINATAL SHUNT) Anesthesia Reaction: No Hx Neurological Disorder: No (SPINAL BIFIDA) Hx Respiratory Disorders: No Hx Cardiac Disorders: Yes (HTN) Hx Psychiatric Problems: No Hx Miscellaneous Medical Probl: Yes (spina bifida, chronic headaches, morbid obesity) Hx Alcohol Use: No Hx Substance Use: No Hx Tobacco Use: No Smoking Status: Never smoker FmHx Family History: No coronary disease Physical Exam Vitals Vital Signs Date Time Temp Pulse Resp B/P Pulse Ox O2 Delivery O2 Flow Rate FiO2 05/26/16 19:55 98.3 102 16 144/88 100 Room Air 05/26/16 14:32 98.5 100 19 125/79 100 Physical Exam Const: Well-developed, well-nourished Head: Atraumatic left scalp on the occipital parietal region has karissa from a RN PERINATAL shunt placed 3 weeks ago. 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 Neck: Full range of motion. No meningismus, no lymphadenopathy. Resp: Clear to auscultation bilaterally, no wheezing, rhonchi, rales Cardio: Regular rate and rhythm, no murmurs, S1 S2 present Abd: Soft, non tender x 4, non distended. Normal bowel sounds, no guarding or rebound, no pulsitile abdominal masses or bruits Skin: No petechiae or rashes, no ecchymosis , no maculopapular rash Back: Mild bilateral CVA tenderness Ext: No cyanosis, or edema, FROM x 4, normal inspection, neurovascularly intact x 4 Neur: Awake and alert, limited to no movement of the lower extremities due to spina bifida upper extremities 5 out of 5 sensation intact x 4 Psych: Normal Mood and Affect Result Diagram: 05/26/16 1545 05/26/16 1545 Results 24 hrs Laboratory Tests Test 05/26/16 15:45 05/26/16 18:45 Alanine Aminotransferase (ALT/SGPT) 74IU/L Albumin 4.3g/dl Albumin/Globulin Ratio 0.91 Alkaline Phosphatase 159IU/L Anion Gap 23 Aspartate Amino Transf (AST/SGOT) 48IU/L Basophils # 0.010^3/ul Basophils % 0.3% Blood Urea Nitrogen 13mg/dl Calcium Level 9.9mg/dl Carbon Dioxide Level 24mmol/L Chloride Level 107mmol/L Creatinine 0.54mg/dl Direct Bilirubin 0.00mg/dl Eosinophils # 0.810^3/ul Eosinophils % 7.8% Globulin 4.70g/dl Glucose Level 105mg/dl Hematocrit 41.7% Hemoglobin 12.8g/dl Indirect Bilirubin 0.1mg/dl Lactic Acid Level 1.5mmol/L Lymphocytes # 2.610^3/ul Lymphocytes % 26.1% Mean Corpuscular Hemoglobin 26.7pg Mean Corpuscular Hemoglobin Concent 30.7g/dl Mean Corpuscular Volume 87.1fl Mean Platelet Volume 9.2fl Monocytes # 0.710^3/ul Monocytes % 6.7% Neutrophils # 5.910^3/ul Neutrophils % 58.9% Nucleated Red Blood Cells # 0.010^3/ul Nucleated Red Blood Cells % 0.0/100WBC Platelet Count 63718^3/UL Potassium Level 3.8mmol/L Red Blood Count 4.7910^6/ul Red Cell Distribution Width 14.0% Sodium Level 150mmol/L Total Bilirubin 0.1mg/dl Total Protein 9.0g/dl White Blood Count 10.110^3/ul Urine Bacteria MANY Urine Bilirubin NEGATIVE Urine Calcium Oxalate Crystals FEW Urine Clarity SLIGHTLY CLOUDY Urine Color LT. YELLOW Urine Glucose NEGATIVE% Urine Hemoglobin 2+ Urine Ketones NEGATIVE Urine Leukocyte Esterase 1+ Urine Microscopic RBC 2-5/HPF Urine Microscopic WBC 10-25/HPF Urine Nitrite NEGATIVE Urine Specific [place] >=1.030 Urine Squamous Epithelial Cells FEW Urine Total Protein 2+ Urine Urobilinogen 0.2 E.U./dL Urine pH 6.0 Current Medications Medications (Trade) Dose Ordered Sig/Evaristo Route PRN Reason Start Time Stop Time Status Last Admin Dose Admin Sodium Chloride (NS) 1,000 ml @ 1,000 mls/hr Q1H STAT IV 05/26/16 15:07 05/26/16 16:06 DC 05/26/16 16:03 Ondansetron HCl (Zofran Inj) 4 mg ONCE STAT IV 05/26/16 15:07 05/26/16 15:15 DC 05/26/16 16:04 Morphine Sulfate (morphine) 4 mg ONCE STAT IV 05/26/16 15:07 05/26/16 15:15 DC 05/26/16 16:04 Ondansetron HCl 4 mg 4 mg ONCE STAT IV 05/26/16 15:07 05/26/16 15:15 DC Vancomycin HCl 250 ml @ 125 mls/hr ONCE IVPB 05/26/16 15:30 05/26/16 17:29 DC 05/26/16 17:35 Levofloxacin/ Dextrose (Levaquin 500mg/ D5W 100 ml (Pmx)) 100 ml @ 100 mls/hr ONCE ONCE IVPB 05/26/16 15:30 05/26/16 16:29 DC 05/26/16 16:04 Hydromorphone HCl (Dilaudid) 1 mg ONCE STAT IV 05/26/16 17:11 05/26/16 17:21 DC 05/26/16 17:34 Ondansetron HCl (Zofran Inj) 4 mg ONCE STAT IV 05/26/16 17:11 05/26/16 17:19 DC 05/26/16 17:34 Procedures/MDM He has UTI but no elevated white count and no fever. He does not fit the profile for pyelonephritis Patient keeps asking for pain medication although he has received morphine and Dilaudid said it did not help his pain at all I called and spoke with Dr. robbins, he says he knows the patient very well and is a drug seeker. He says he always has urinary tract infection chronically that he does not need to be admitted and to discharge him home on antibiotics with the Gonzalez and have the Gonzalez removed 2 days Patient said he has Cipro at home he was given 2 days ago but has not started it yet. He wants the Gonzalez catheter removed now We will send urine culture Departure Diagnosis: Primary Impression: UTI (urinary tract infection) Qualified Code: N30.00 - Acute cystitis without hematuria Condition: Stable DEMETRA PATEL DO May 26, 2016 18:55
[2016-05-26 19:31] LABS: ADD UMIC YES; URINE BILIRUBIN (Dip) NEGATIVE (NEGATIVE); URINE BLOOD (Dip) 2+ (NEGATIVE); URINE COLOR LT. YELLOW (YELLOW); URINE GLUCOSE (Dip) NEGATIVE (NEGATIVE); URINE KETONES (Dip) NEGATIVE (NEGATIVE); URINE LEUKOCYTE ESTERASE (Dip) 1+ (NEGATIVE); URINE NITRITE (Dip) NEGATIVE (NEGATIVE); URINE TOTAL PROTEIN (Dip) 2+ (NEGATIVE); URINE UROBILINOGEN (Dip) 0.2 E.U./dL (0.1-1.0)
[2016-05-26 19:51] LABS: BACTERIA,URINE MANY; SQUAMOUS EPITHELIAL CELL,UR FEW
[2016-05-26 19:55] VITALS: TEMP 98.3
[2016-05-26 23:05] VITALS: BP 139/90; PULSE 102; RESP 20
== END 2016-05-26 23:20 | disposition home or self-care (01) ==
LOC: E/R 14:17
DX: N30.00 Acute cystitis without hematuria (principal); I10 Essential (primary) hypertension; R40.2142 Coma scale, eyes open, spontaneous, at arrival to emergency department; R40.2252 Coma scale, best verbal response, oriented, at arrival to emergency department; R40.2362 Coma scale, best motor response, obeys commands, at arrival to emergency department; E66.01 Morbid (severe) obesity due to excess calories; Z68.34 Body mass index [BMI] 34.0-34.9, adult
CPT/HCPCS: 36415; 80053; 81001; 83605; 85025; 87040; 87086; 96374; 96375; 96376; J1170; J1956; J2270; J2405; J3370; J7030; Z7502; 81003

== ENCOUNTER 2016-05-29 06:45 | Emergency (ER) | payer OTHER ==
[~2016-05-29] VITALS: Ht 165.1 cm; Wt 85.0 kg
[2016-05-29] MEDS ORDERED: ONDANSETRON 4 MG INJ IV STA (06:51)
[2016-05-29] MEDS ORDERED: HYDROmorphONE 1 MG/ML SYG IV STA ×2 (06:51→09:10)
[2016-05-29] MEDS ORDERED: SOD CHLORIDE 0.9% 1,000 ML IV STA ×2 (06:51→09:10)
[2016-05-29 06:55] VITALS: Ht 165.1 cm; Wt 85.0 kg
--- NOTE | 2016-05-29 07:08 | ERD ---
ER Documentation Chief Complaint Date/Time DATE: 05/29/16 TIME: 06:56 Chief Complaint HPI This is a 26-year-old male with a known history of quadriplegia as a result of spina bifida. The patient has a chronic right lower extremity wound on his foot. The patient also has a known history of neurogenic bladder and had been seen and evaluated in the hospital at [facility] emergency department by myself on May 25, 2016 for urinary retention. A Gonzalez catheter had been placed and he was subsequently sent home with ciprofloxacin to treat a urinary tract infection. He received a dose of IV antibiotics in the emergency department. He returned on May 26, 2016 for Gonzalez catheter removal in the emergency department and was discharged home as the patient states he knows how to self catheterize himself every 4 hours. He returns to the emergency department today brought in by EMS complaining of lower back pain. He states he has a history of chronic lower back pain due to spina bifida but states he is not currently on any analgesic medication at home. He denies any recent trauma to his lower back. He has no saddle anesthesia. He denies any changes in his bladder or bowel frequency. He has had no fevers or shaking or chills. ROS All systems reviewed and are negative except as per history of present illness. Medications Home Meds Active Scripts Oxycodone HCl/Acetaminophen (Percocet 5-325 mg Tablet) 1 Each Tablet, 1 EACH PO Q6, #20 TAB Prov:SAVAGE MARVIN 05/29/16 Ciprofloxacin Hcl* (Ciprofloxacin Hcl*) 500 Mg Tablet, 500 MG PO BID for 10 Days , TAB Prov:SAVAGE MARVIN 05/25/16 Discontinued Scripts Oxycodone HCl/Acetaminophen (Percocet 5-325 mg Tablet) 1 Each Tablet, 1 EACH PO Q6H, #1 TAB Prov:VELMA CAVANAUGH MD 05/20/16 Lactobacillus Acidoph/Bulgaricus* (Floranex*) 1 Each Tablet, 1 TAB PO BID, #30 TAB Prov:VELMA CAVANAUGH MD 05/20/16 Oxybutynin Chloride* (Ditropan*) 5 Mg Tab, 5 MG PO TID, #90 TAB Prov:VELMA CAVANAUGH MD 05/20/16 Nystatin* (Nystop*) 15 Gm Powder, 1 APPLIC TOP BID for 28 Days Prov:VELMA CAVANAUGH MD 05/20/16 Famotidine* (Famotidine*) 20 Mg Tablet, 20 MG PO DAILY, #30 TAB Prov:VELMA CAVANAUGH MD 05/20/16 Bisacodyl* (Bisacodyl*) 5 Mg Tablet.dr, 10 MG PO DAILY Y for CONSTIPATION, #30 Prov:VELMA CAVANAUGH MD 05/20/16 Allergies Allergies: Coded Allergies: cefotaxime (Verified Allergy, Intermediate, 05/29/16) latex (Verified Allergy, Intermediate, RASH, 05/29/16) ketorolac (Verified Allergy, Mild, RASH, 05/29/16) oxycodone (Verified Allergy, Mild, swelling of lips, 05/29/16) papaya (Verified Allergy, Mild, 05/29/16) piperacillin sodium (Verified Allergy, Mild, hives, 05/29/16) tazobactam sodium (Verified Allergy, Mild, hives, 05/29/16) acetaminophen (Verified Allergy, Unknown, RASH, 05/29/16) hydrocodone (Verified Allergy, Unknown, RASH, 05/29/16) ibuprofen (Verified Allergy, Unknown, LIP SWELLING, STATED THROAT IS CLOSING, 05/29/16) piperacillin (Verified Allergy, Unknown, 05/29/16) tazobactam (Verified Allergy, Unknown, 05/29/16) PMhx/Soc History of Surgery: Yes (TOOLS PROGRAMMER SHUNT) Anesthesia Reaction: No Hx Neurological Disorder: No (SPINAL BIFIDA) Hx Respiratory Disorders: No Hx Cardiac Disorders: Yes (HTN) Hx Psychiatric Problems: No Hx Miscellaneous Medical Probl: Yes (spina bifida, chronic headaches, morbid obesity) Hx Alcohol Use: No Hx Substance Use: No Hx Tobacco Use: No Physical Exam Vitals Vital Signs Date Time Temp Pulse Resp B/P Pulse Ox O2 Delivery O2 Flow Rate FiO2 05/29/16 06:55 98.0 97 19 139/87 100 Physical Exam Constitutional:Well-developed. Well-nourished. HEENT:Normocephalic. Atraumatic.Pupils were equal round reactive to light. Moist mucous membranes.No tonsillar exudates. Previous surgical incision site from TOOLS PROGRAMMER shunt placed one month ago of the left scalp is clean dry and intact with karissa in place. Previous surgical scar from several years prior to arrival on the right occipital region from previous TOOLS PROGRAMMER shunt Neck: No nuchal rigidity. No lymphadenopathy. No posterior cervical spine tenderness or step-offs. Respiratory: Not using accessory muscles of respiration.Lungs were clear to auscultation bilaterally. No rhonchi. No rales. No wheezing. Cardiovascular: Regular rate regular rhythm.No murmurs. No rubs were appreciated.S1, S2 normal. Distal pulses are palpable 2+ bilaterally. GI: Abdomen was soft. Nontender. Non Distended. No pulsatile abdominal masses or bruits. No rebound. No guarding. Bowel sounds were present and normal. Muscle skeletal: Patient has full range of motion of the bilateral upper extremities. Muscle atrophy of the bilateral lower extremities and patient unable to lift lower extremities against gravity. Reproducible tenderness over the bilateral lumbar spine with chronic changes of the skin from indentation of his spina bifida with no surrounding erythema warmth tenderness fluctuance or induration Skin: No petechia, no purpura. No lesions on the palms or the soles of the feet. No maculopapular rash. NEURO: Patient was alert, awake, orientated x3.No facial droop. Patient is bedbound due to spina bifida therefore gait not observed. Result Diagram: 05/29/16 0810 05/29/16 0810 Results 24 hrs Laboratory Tests Test 05/29/16 08:10 Alanine Aminotransferase (ALT/SGPT) 68IU/L Albumin 3.7g/dl Albumin/Globulin Ratio 0.77 Alkaline Phosphatase 126IU/L Anion Gap 20 Aspartate Amino Transf (AST/SGOT) 40IU/L Basophils # 0.010^3/ul Basophils % 0.3% Blood Urea Nitrogen 13mg/dl Calcium Level 9.1mg/dl Carbon Dioxide Level 26mmol/L Chloride Level 111mmol/L Creatinine 0.55mg/dl Direct Bilirubin 0.00mg/dl Eosinophils # 1.110^3/ul Eosinophils % 8.9% Globulin 4.80g/dl Glucose Level 108mg/dl Hematocrit 41.7% Hemoglobin 13.1g/dl Indirect Bilirubin 0.1mg/dl Lymphocytes # 4.810^3/ul Lymphocytes % 40.3% Mean Corpuscular Hemoglobin 27.2pg Mean Corpuscular Hemoglobin Concent 31.4g/dl Mean Corpuscular Volume 86.5fl Mean Platelet Volume 9.4fl Monocytes # 0.910^3/ul Monocytes % 7.1% Neutrophils # 5.210^3/ul Neutrophils % 43.1% Nucleated Red Blood Cells # 0.010^3/ul Nucleated Red Blood Cells % 0.0/100WBC Platelet Count 08779^3/UL Potassium Level 4.0mmol/L Red Blood Count 4.8210^6/ul Red Cell Distribution Width 14.2% Sodium Level 153mmol/L Total Bilirubin 0.1mg/dl Total Protein 8.5g/dl White Blood Count 12.010^3/ul Current Medications Medications (Trade) Dose Ordered Sig/Evaristo Route PRN Reason Start Time Stop Time Status Last Admin Dose Admin Sodium Chloride (NS) 1,000 ml @ 1,000 mls/hr Q1H STAT IV 05/29/16 06:51 05/29/16 07:50 DC 05/29/16 08:10 Hydromorphone HCl (Dilaudid) 1 mg ONCE STAT IV 05/29/16 06:51 05/29/16 06:53 DC 05/29/16 08:10 Ondansetron HCl 4 mg 4 mg ONCE STAT IV 05/29/16 06:51 05/29/16 06:53 DC 05/29/16 08:10 Sodium Chloride (NS) 1,000 ml @ 1,000 mls/hr Q1H STAT IV 05/29/16 09:10 05/29/16 10:09 05/29/16 09:20 Hydromorphone HCl (Dilaudid) 1 mg ONCE STAT IV 05/29/16 09:10 05/29/16 09:12 DC 05/29/16 09:20 Diphenhydramine HCl (Benadryl) 50 mg ONCE ONCE IV 05/29/16 10:00 05/29/16 10:01 DC 05/29/16 09:53 Procedures/MDM The patient presented to the emergency department with back pain. My differential diagnosis included but was not limited to spinal origins of the pain such as fracture, osteomyelitis, epidural abscess, neoplasm, spondylolishtesis, discogenic, cauda equina syndrome or musculoligamentous. Nonspinal causes such as AAA, upper UTI, renal colic, aortic dissection, abdominal neoplasm were also considered as an etiology into their pain. IV access was established by nursing staff. There is no electrolyte abnormalities. The patient was given IV Dilaudid and Zofran. I did feel that this was as result of his chronic pain with no acute process. I explained to the patient that I felt he would benefit from a pain specialist and his pain had resolved after he received 2 doses of IV analgesic medication. The patient' s ancillary laboratory work did indicate that he was slightly dehydrated with hypernatremia with serum sodium 153. He received a total of 2 L boluses of normal saline. The patient was requesting that his karissa be removed from his TOOLS PROGRAMMER shunt placed 10 days prior to arrival. The incision was clean dry and intact with no dehiscence and therefore the karissa were removed by myself. The patient tolerated the procedure well. The patient was discharged home in fair condition. They were instructed to return to the emergency department at any time if there was any worsening of their condition. The patient was requesting a prescription of Percocet as he states he has no analgesic medication at home. I provided this prescription to the patient but also indicated again that he will need to follow-up with his primary care physician for outpatient definitive treatment with a pain specialist. Therefore, the patient stated they would follow up with their PCP in the next 24-48 hours to initiate a suitable medication regimen under the care of their PCP as well as to allow their PCP to monitor any drug reactions. The patient was discharged home with prescriptions after they gave informed consent to the new medication. They were also fully informed by myself on the adverse effects and adverse drug interactions in order to provide adequate safeguards to prevent possible adverse reactions to medications. Departure Diagnosis: Primary Impression: Acute exacerbation of chronic low back pain Additional Impression: Acute hypernatremia Condition: Eve SAVAGE MARVIN May 29, 2016 07:07
[2016-05-29] MEDS ORDERED: OXYC-279 PO (07:16)
[2016-05-29 08:13] LABS: ADD SCAN DIFF NO
[2016-05-29 08:16] LABS: BASOPHILS % 0.3 % (0.0-2.0); EOSINOPHILS # 1.1 10^3/ul (0.0-0.5); EOSINOPHILS % 8.9 % (0.0-7.0); HEMATOCRIT 41.7 % (42.0-52.0); HEMOGLOBIN 13.1 g/dl (14.0-18.0); LYMPHOCYTES # 4.8 10^3/ul (0.8-2.9); LYMPHOCYTES % 40.3 % (15.0-51.0); MEAN CORPUSCULAR HEMOGLOBIN 27.2 pg (29.0-33.0); MEAN CORPUSCULAR HGB CONC 31.4 g/dl (32.0-37.0); MEAN CORPUSCULAR VOLUME 86.5 fl (82.0-101.0); MEAN PLATELET VOLUME 9.4 fl (7.4-10.4); MONOCYTE # 0.9 10^3/ul (0.3-0.9); MONOCYTES % 7.1 % (0.0-11.0); NEUTROPHIL # 5.2 10^3/ul (1.6-7.5); NEUTROPHILS % 43.1 % (39.0-77.0); PLATELET COUNT 506 10^3/UL (140-415); RED BLOOD COUNT 4.82 10^6/ul (4.70-6.10); RED CELL DISTRIBUTION WIDTH 14.2 % (11.5-14.5)
[2016-05-29 08:29] LABS: ALBUMIN 3.7 g/dl (3.3-4.9)
[2016-05-29 08:31] LABS: BILIRUBIN,INDIRECT 0.1 mg/dl (0-1.1); BILIRUBIN,TOTAL 0.1 mg/dl (0.2-1.3); CREATININE 0.55 mg/dl (0.61-1.24)
[2016-05-29 08:32] LABS: ALBUMIN/GLOBULIN RATIO 0.77; TOTAL PROTEIN 8.5 g/dl (6.1-8.1)
[2016-05-29 08:33] LABS: CALCIUM 9.1 mg/dl (8.4-10.2)
[2016-05-29] MEDS ORDERED: DIPHENHYDRAMINE 50 MG INJ IV ONE (10:00)
[2016-05-29 10:45] VITALS: BP 134/65; PULSE 93; RESP 19; TEMP 98.3
== END 2016-05-29 11:06 | disposition home or self-care (01) ==
LOC: E/R 06:45
DX: M54.5 Low back pain (principal); R40.2252 Coma scale, best verbal response, oriented, at arrival to emergency department; E87.0 Hyperosmolality and hypernatremia; I10 Essential (primary) hypertension; R40.2142 Coma scale, eyes open, spontaneous, at arrival to emergency department; R40.2362 Coma scale, best motor response, obeys commands, at arrival to emergency department; Z91.040 Latex allergy status
CPT/HCPCS: 80053; 85025; 96374; 96375; 96376; J1170; J1200; J2405; J7030; Z7502

== ENCOUNTER 2016-06-02 00:10 | Inpatient (IN) | payer OTHER ==
[~2016-06-02] VITALS: Ht 157.5 cm; Wt 105.0 kg
[~2016-06-02 00:10] MED LIST changes: +OXYC-279 PO
[2016-06-02] MEDS ORDERED: PROCHLORPERAZINE 5 MG TAB PO ONE (01:00)
--- NOTE | 2016-06-02 01:54 | RADRPT ---
PROCEDURE: CT head, without contrast. CLINICAL INDICATION: Headache and craniotomy. TECHNIQUE: Noncontrast CT examination of the head, with axial, sagittal and coronal reformatted im ages. Automated dose exposure control was employed. CTDI: 38.10 mGy and DLP: 634.23 mGy-cm. 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 This suggests Chiari makeda iant. This can be a source of headaches. Tonsillar ectopia should be measured on MRI examination. Right posterior parietal occipital PRINT LINE TAILER shunt again seen with tip in the right lateral ventricle. The ventricles are well decompressed. The similar in appearance to the prior examination. Note acute hemorrhage. Subarachnoid spaces are substantially preserved and symmetric. No mass effect. Stratton-white matter distinction is preserved without evident decreased attenuation t o suggest acute or recent infarct. Surgical changes over the calvarium. Sinuses and osseous structures are otherwise unremarkable. IMPRESSION: 1. 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 2. This can be a source of headaches. 3. PRINT LINE TAILER shunt is again seen, without significant change, and the ventricles are well decompressed. 4. Otherwise, no acute process in the head. RPTAT: [facility] Physician Dimitri Date Time Electronically viewed and signed by Physician Dimitri on 06/02/2016 01:54 RS/
[2016-06-02] MEDS ORDERED: morphine 10 MG INJ IM ONE (02:30)
[2016-06-02 03:16] LABS: ADD UMIC YES; URINE BILIRUBIN (Dip) NEGATIVE (NEGATIVE); URINE BLOOD (Dip) 2+ (NEGATIVE); URINE COLOR LT. YELLOW (YELLOW); URINE GLUCOSE (Dip) NEGATIVE (NEGATIVE); URINE KETONES (Dip) NEGATIVE (NEGATIVE); URINE LEUKOCYTE ESTERASE (Dip) 1+ (NEGATIVE); URINE NITRITE (Dip) POSITIVE (NEGATIVE); URINE TOTAL PROTEIN (Dip) 1+ (NEGATIVE); URINE UROBILINOGEN (Dip) 0.2 E.U./dL (0.1-1.0)
[2016-06-02] MEDS ORDERED: morphine 4 MG/ML VIAL IV STA (04:06)
[2016-06-02] MEDS ORDERED: LEVOFLOXACIN 500MG/D5W (PMX) 100 ML IVPB ONE (04:30)
[2016-06-02 05:06] LABS: BACTERIA,URINE MANY; TRANSITIONAL EPI CELLS,URINE OCCASIONAL
[2016-06-02] MEDS ORDERED: LEVO750T25 PO (05:38)
[2016-06-02] MEDS ORDERED: NITR-58 PO (05:38)
[2016-06-02] MEDS ORDERED: TRAM50TA2 PO (05:40)
--- NOTE | 2016-06-02 05:53 | ERD ---
ER Documentation Chief Complaint Date/Time DATE: 06/02/16 TIME: 05:40 Chief Complaint HEADACHE, LOWERE LEFT BACK PAIN HPI This 26-year-old debilitated male comes in for a headache. Also says that he has low left back pain which is chronic in nature. Says that Dilaudid is usually what works for his headaches. Also said he is currently being treated for a urinary tract infection but does not know which antibiotic he is on. He does not think it is working currently is still urinating more frequently. Denies any fevers. He has no cough. ROS All systems reviewed and are negative except as per history of present illness. Medications Home Meds Active Scripts Tramadol HCl (Tramadol HCl) 50 Mg Tablet, 50 MG PO Q6 Y for PAIN, #14 TAB Prov:FLORENCIA BARRETTUA DO 06/02/16 Nitrofurantoin Monohyd Macrocr* (Macrobid*) 100 Mg Capsr, 100 MG PO BID, #10 CAP Prov:ARNOLDELIZABETH DO 06/02/16 Levofloxacin* (Levaquin*) 750 Mg Tablet, 750 MG PO DAILY for 5 Days, TAB Prov:ARNOLDELIZABETH DO 06/02/16 Oxycodone HCl/Acetaminophen (Percocet 5-325 mg Tablet) 1 Each Tablet, 1 EACH PO Q6, #20 TAB Prov:SAVAGE MARVIN 05/29/16 Ciprofloxacin Hcl* (Ciprofloxacin Hcl*) 500 Mg Tablet, 500 MG PO BID for 10 Days , TAB Prov:SAVAGE MARVIN 05/25/16 Allergies Allergies: Coded Allergies: cefotaxime (Verified Allergy, Intermediate, 05/29/16) latex (Verified Allergy, Intermediate, RASH, 05/29/16) ketorolac (Verified Allergy, Mild, RASH, 05/29/16) oxycodone (Verified Allergy, Mild, swelling of lips, 05/29/16) papaya (Verified Allergy, Mild, 05/29/16) piperacillin sodium (Verified Allergy, Mild, hives, 05/29/16) tazobactam sodium (Verified Allergy, Mild, hives, 05/29/16) acetaminophen (Verified Allergy, Unknown, RASH, 05/29/16) hydrocodone (Verified Allergy, Unknown, RASH, 05/29/16) ibuprofen (Verified Allergy, Unknown, LIP SWELLING, STATED THROAT IS CLOSING, 05/29/16) piperacillin (Verified Allergy, Unknown, 05/29/16) tazobactam (Verified Allergy, Unknown, 05/29/16) PMhx/Soc History of Surgery: Yes (GRADE AND CENTER MARKER SHUNT) Anesthesia Reaction: No Hx Neurological Disorder: No (SPINAL BIFIDA) Hx Respiratory Disorders: No Hx Cardiac Disorders: Yes (HTN) Hx Psychiatric Problems: No Hx Miscellaneous Medical Probl: Yes (spina bifida, chronic headaches, morbid obesity) Hx Alcohol Use: No Hx Substance Use: No Hx Tobacco Use: No Smoking Status: Never smoker Physical Exam Vitals Vital Signs Date Time Temp Pulse Resp B/P Pulse Ox O2 Delivery O2 Flow Rate FiO2 06/02/16 05:28 98.3 88 18 148/84 98 Room Air 06/02/16 03:00 98.3 99 18 154/88 96 Room Air 06/02/16 00:28 98.3 110 18 165/106 100 Room Air 06/02/16 00:23 98.3 110 18 165/106 100 Physical Exam Const: [] No distress Head: Atraumatic Eyes: Normal Conjunctiva ENT: Normal External Ears, Nose and Mouth. Neck: Full range of motion..~ No meningismus. Resp: Clear to auscultation bilaterally Cardio: Regular mild tachycardia no murmurs Abd: Soft, non tender, non distended. Normal bowel sounds Skin: No petechiae or rashes Back: No midline or flank tenderness, mild bilateral lumbar paraspinal muscle tenderness with mild spasm. Ext: No cyanosis, or edema Neur: Awake and alert and oriented 3, cranial nerves II through XII intact, no focal deficits Psych: Normal Mood and Affect Results 24 hrs Laboratory Tests Test 06/02/16 02:35 Urine Bacteria MANY Urine Bilirubin NEGATIVE Urine Clarity CLEAR Urine Color LT. YELLOW Urine Glucose NEGATIVE% Urine Hemoglobin 2+ Urine Ketones NEGATIVE Urine Leukocyte Esterase 1+ Urine Microscopic RBC 2-5/HPF Urine Microscopic WBC >50/HPF Urine Nitrite POSITIVE Urine Specific [place] 1.020 Urine Total Protein 1+ Urine Transitional Epithelial Cells OCCASIONAL Urine Urobilinogen 0.2 E.U./dL Urine pH 6.0 Current Medications Medications (Trade) Dose Ordered Sig/Evaristo Route PRN Reason Start Time Stop Time Status Last Admin Dose Admin Prochlorperazine (Compazine) 5 mg ONCE ONCE PO 06/02/16 01:00 06/02/16 01:03 DC 06/02/16 01:36 Morphine Sulfate 4 mg 4 mg ONCE ONCE IM 06/02/16 02:30 06/02/16 02:31 DC 06/02/16 02:27 Levofloxacin/ Dextrose (Levaquin 500mg/ D5W 100 ml (Pmx)) 100 ml @ 100 mls/hr ONCE ONCE IVPB 06/02/16 04:30 06/02/16 05:29 DC 06/02/16 04:53 Morphine Sulfate (morphine) 4 mg ONCE STAT IV 06/02/16 04:06 06/02/16 04:09 DC 06/02/16 04:53 Procedures/MDM Headache with UTI. Patient was given Compazine and morphine intramuscular. After his pain was treated his mild tachycardia resolved without any fluid administration. CT head showed no hydrocephalus or bleeding. He was then given a liter of Levaquin IV for his nitrate positive urinary tract infection. I am also going to discharge her with Levaquin as well as Macrobid as an resistant infection Macrobid is often the only p.o. drug that the bacteria is susceptible to. I have also ordered a urine culture to ensure that the antibiotic regimen given is going to treat the patient's infection. Vital signs stable. I am discharging with primary care follow-up and instructions return to the ER if he starts to experience any fevers or increasing pain. Discharging with tramadol as well as the [address] interpretation: No acute process, I see no hemorrhage no mass-effect no midline shift, ventricles are decompressed and GRADE AND CENTER MARKER shunt is in place. I also see no fractures. Departure Diagnosis: Primary Impression: Urinary tract infection Additional Impression: Acute headache Condition: Stable Patient Instructions: Understanding Urinary Tract Infections (UTIs), Self-Care for Headaches Additional Instructions: Call your primary care doctor TOMORROW for an appointment during the next 1-2 days.See the doctor sooner or return here if your condition worsens before your appointment time. ELIZABETH BARRETT DO Jun 02, 2016 05:51
[2016-06-02 06:25] VITALS: TEMP 98.1
[2016-06-02] MEDS ORDERED: SOD CHLORIDE 0.9% 1,000 ML IV STA (06:49)
[2016-06-02] MEDS ORDERED: IMIPENEM-CILAST 500MG IV (PMX) 100 ML IVPB ONE (07:00)
[2016-06-02] MEDS ORDERED: ACETAMINOPHEN 325 MG TAB PO PRN ×2 (07:30→09:00)
[2016-06-02] MEDS ORDERED: ONDANSETRON 4 MG INJ IV PRN (07:30)
[2016-06-02 08:24] VITALS: BP 160/91; PULSE 102; RESP 20
[2016-06-02 08:35] VITALS: Ht 157.5 cm; Wt 105.0 kg
[2016-06-02] MEDS ORDERED: morphine 2 MG INJ IV PRN (09:00)
[2016-06-02] MEDS ORDERED: NACL 0.9% 3 ML SYG IV SCH (09:00)
--- NOTE | 2016-06-02 09:09 | HP ---
Date/Time of Note Date/Time of Note DATE: 06/02/16 TIME: 08:57 Assessment/Plan VTE Prophylaxis VTE Prophylaxis Intervention: heparin Assessment/Plan Assessment/Plan 1. UTI with possible pyelo: urine cx shows K.Pneumoniae only sensitive to Imipenem 2. Headache 3. History of spina bifida with quadriplegia 4. History of hydrocephalus status post V-P shunt with multiple revisions 5. Chronic pain syndrome. 6. Chronic right lower extremity wound. PLAN - pt has recurrent UTI and hx of neurogenic bladder - Will start Imipenem - Will place an ID consult - As for his headache, CT head showed no acute findings. He has hydrocephalus and is status post V-P shunt with multiple revisions. If headache persists or worsens, will perform additional imaging given history - Cont pain mgmt HPI/ROS Admit Date/Time Admit Date/Time Jun 02, 2016 at 08:09 Hx of Present Illness This is an unfortunate 26-year-old gentleman with past medical history of spina bifida with debility as well as history of right lower extremity chronic wound; quadriplegia as result of spina bifida; recurrent UTI; history of hydrocephalus , status post SCALE CLERK shunt with multiple revisions presented to ER c/o headache and left lower back/flank pain. In ER, CT head showed no acute abnormalities. plan was for pt to be discharged from ER, but after ambulance arrived to pick him up, it was noted that his urine cx is positive for K.Pneumoniae only sensitive to Imipenem. As such. pt is admitted for IV abx. PMH/Family/Social Past Medical History 1. History of spina bifida with quadriplegia 2. History of hydrocephalus status post V-P shunt with multiple revisions 3. Recurrent UTI 4. Neurogenic Bladder 5. Chronic pain syndrome. 6. Chronic right lower extremity wound. Past Surgical History Past Surgical Hx: other (SCALE CLERK shunt) Social History Alcohol Use: occasionally Smoking Status: Current some day smoker Exam/Review of Systems Vital Signs Vitals Vital Signs Date Time Temp Pulse Resp B/P Pulse Ox O2 Delivery O2 Flow Rate FiO2 06/02/16 08:24 97.9 102 20 160/91 100 Room Air Exam Exam GENERAL: Well-developed, obese gentleman, in no acute distress. HEENT: Head is atraumatic, normocephalic. PERRLA. NECK: Supple. No cervical lymphadenopathy, no thyromegaly. CHEST: Lungs clear bilaterally. There are no rhonchi, wheezes or rales noted. CARDIOVASCULAR: Normal S1, S2. No murmurs, gallops, clicks or rubs noted. ABDOMEN: tenderness to deep palpation in left flank/lower back region. no rigidity, +bowel sound EXTREMITIES: There is no swelling. There is muscle wasting in the lower extremities. The patient has paraplegia. No edema. The patient has a chronic wound to the right lower extremity medial malleolus site. SKIN: There is no rash or petechiae noted. NEUROLOGICAL: The patient is alert and oriented x4. Cranial nerves are intact. No focal deficits noted. MUSCULOSKELETAL: Motor strength is 5/5 in upper extremities. Medications Medications Current Medications Hydromorphone HCl (Dilaudid) 1 mg Q4H PRN IV PAIN; Start 06/02/16 at 09:00; Status UNV Ondansetron HCl (Zofran Inj) 4 mg Q6H PRN IV NAUSEA AND/OR VOMITING; Start 06/02 at 09:00; Status UNV Acetaminophen (Tylenol Tab) 650 mg Q6H PRN PO PAIN LEVEL 1-3 OR FEVER; Start at 09:00; Status UNV Morphine Sulfate (morphine) 2 mg Q4H PRN IV SEVERE PAIN LEVEL 7-10; Start at 09:00; Status UNV Enoxaparin Sodium 40 mg 40 mg DAILY SC ; Start 06/02/16 at 09:00; Status UNV Imipenem/ Cilastatin Sodium (Primaxin 500 Mg/ 100 ml (Pmx)) 100 ml @ 100 mls/ hr Q8 IVPB ; Start 06/02/16 at 14:00; Status UNV MAMTA SILVESTRE MD Jun 02, 2016 09:07
[2016-06-02] MEDS: HYDROmorphONE 1 MG/ML SYG IV PRN ×4 (09:15→21:36)
[2016-06-02] MEDS: ENOXAPARIN 40 MG/0.4 ML SYG SC SCH (09:17)
[2016-06-02] MEDS ORDERED: DIPHENHYDRAMINE 50 MG INJ IV PRN (10:00)
[2016-06-02] MEDS: IMIPENEM-CILAST 500MG IV (PMX) 100 ML IVPB SCH ×2 (13:27→21:37)
[2016-06-02 21:18] VITALS: BP 172/86; RESP 16
[2016-06-02 22:00] VITALS: BP 142/78
[2016-06-03] MEDS: HYDROmorphONE 1 MG/ML SYG IV PRN ×7 (01:37→23:12)
[2016-06-03] MEDS: IMIPENEM-CILAST 500MG IV (PMX) 100 ML IVPB SCH ×3 (05:38→21:57)
[2016-06-03] MEDS ORDERED: HYDROmorphONE 1 MG/ML SYG IV STA ×2 (08:30→11:11)
[2016-06-03 08:51] VITALS: BP 188/102; RESP 18
[2016-06-03] MEDS: ENOXAPARIN 40 MG/0.4 ML SYG SC SCH (08:53)
[2016-06-03 13:34] VITALS: BP 156/107; RESP 22
--- NOTE | 2016-06-03 14:22 | PN ---
Date/Time of Note Date/Time of Note DATE: 06/03/16 TIME: 14:12 Assessment/Plan VTE Prophylaxis VTE Prophylaxis Intervention: LMWH Lines/Catheters IV [facility]ter [facility]from [facility] Saline Lock Urinary Cath still in place: No Assessment/Plan Assessment/Plan 1. UTI with possible pyelo: urine cx shows K.Pneumoniae only sensitive to Imipenem 2. Headache, unlikely shunt dysfunction, pain management 3. History of spina bifida with quadriplegia 4. History of hydrocephalus status post V-P shunt with multiple revisions 5. Chronic pain syndrome. 6. Chronic right lower extremity wound. 7. DVT prophylaxis: lovenox Subjective 24 Hr Interval Summary Free Text/Dictation headache is controlled with dilaudid back pain Exam/Review of Systems Vital Signs Vitals Vital Signs Date Time Temp Pulse Resp B/P Pulse Ox O2 Delivery O2 Flow Rate FiO2 06/03/16 13:34 22 156/107 06/03/16 08:51 98.2 89 98 06/02/16 08:24 Room Air Intake and Output 06/02/16 06/02/16 06/03/16 15:00 23:00 07:00 Intake Total 660 ml 500 ml Balance 660 ml 500 ml Exam Constitutional: alert, oriented, well developed Psych: nl mood/affect, no complaints Head: atraumatic, normocephalic Eyes: EOMI, PERRL, nl conjunctiva, nl lids ENMT: nl external ears & nose, nl lips & teeth, nl nasal mucosa & septum Neck: non-tender, supple Respiratory: clear to auscultation, normal air movement, No congested cough, No crackles/rales, No diminished breath sounds, No intercostal retraction, No labored breathing, No other, No respirations, No tactile fremitus, No wheezing Cardiovascular: nl pulses, regular rate and rhythm, No S3, No S4, No bruits, No diastolic murmur, No edema, No gallop, No irregular rhythm, No jugular venous distention (JVD), No murmurs/extra sounds, No other, No rub, No systolic murmur Gastrointestinal: nl liver, spleen, non-tender, soft, No ascites, No bowel sounds, No distended, No firm, No hepatomegaly, No mass , No other, No rebound or guarding, No splenomegaly, No surgical scars, No tender Musculoskeletal: nl extremities to inspection Extremities: normal pulses, No calf tenderness, No clubbing, No cyanosis, No edema, No other, No palpable cord, No pitting pedal edema, No tenderness Neurological: AUTOMATIC DRY STARCH OPERATOR II-XII intact, nl mental status, nl speech Skin: nl turgor Medications Medications Current Medications Ondansetron HCl (Zofran Inj) 4 mg Q6H PRN IV NAUSEA AND/OR VOMITING; Start 06/02 at 09:00 Enoxaparin Sodium 40 mg 40 mg DAILY SC Last administered on 06/02/16 09:17; Admin Dose 40 MG; Start 06/02/16 at 09:00 Imipenem/ Cilastatin Sodium (Primaxin 500 Mg/ 100 ml (Pmx)) 100 ml @ 100 mls/ hr Q8 IVPB Last administered on 06/03/16 13:36; Admin Dose 100 MLS/HR; Start at 14:00 Diphenhydramine HCl (Benadryl) 25 mg Q6H PRN IV ALLERGIC REACTION; Start at 10:00 Hydromorphone HCl (Dilaudid) 1 mg Q3H PRN IV PAIN Last administered on 14:04; Admin Dose 1 MG; Start 06/03/16 at 12:00 Nystatin (Nystatin Powder) 1 applic BID TOP ; Start 06/03/16 at 21:00 ZI ROTHMAN MD Jun 03, 2016 14:22
[2016-06-03 20:02] VITALS: BP 174/105; RESP 19
[2016-06-03] MEDS: NYSTATIN 30 GM POWDER BTL TOP SCH (20:06)
[2016-06-04] MEDS: HYDROmorphONE 1 MG/ML SYG IV PRN ×7 (02:14→20:38)
[2016-06-04] MEDS ORDERED: hydrALAzine 20 MG INJ IV ONE (04:30)
[2016-06-04] MEDS: IMIPENEM-CILAST 500MG IV (PMX) 100 ML IVPB SCH ×2 (05:32→13:37)
[2016-06-04 08:05] VITALS: BP 161/92; RESP 20
[2016-06-04] MEDS: NYSTATIN 30 GM POWDER BTL TOP SCH ×2 (08:30→20:38)
[2016-06-04] MEDS: ENOXAPARIN 40 MG/0.4 ML SYG SC SCH (08:30)
[2016-06-04 10:01] VITALS: BP 140/95; PULSE 95
[2016-06-04] MEDS ORDERED: LIDOCAINE 1% (MDV) 20 ML INJ SC ONE ×2 (10:30→15:30)
--- NOTE | 2016-06-04 14:20 | CONS ---
DATE OF ADMISSION: 06/02/2016 DATE OF CONSULTATION: 06/04/2016 TYPE OF CONSULTATION: Infectious Disease. REASON FOR CONSULTATION: Antibiotic management. HISTORY OF PRESENT ILLNESS: Kunal Dick is a 26-year-old quadriplegic, well known to us from [facility] [place]. Patient has spina bifida with disability. Has a history of right lower extremi ty chronic wounds, quadriplegia as a result of the spina bifida. He also has recurrent UTIs, histor y of hydrocephalus, status post BOAT CANVAS MAKER INSTALLER shunt with multiple revisions. He presented to the ER complainin g of headache and left lower back flank pain. A CT scan showed no acute abnormalities. His urine c ulture, however, is positive for Klebsiella pneumoniae sensitive to imipenem. Patient was, therefor e, admitted for IV antibiotic management. PAST MEDICAL HISTORY: Operations as outlined. FAMILY HISTORY: Noncontributory. SOCIAL HISTORY: He does not smoke, drink, or abuse drugs. ALLERGIES: NONE TO PENICILLIN, SULFA, OR FOODS. MEDICATIONS: Per chart. REVIEW OF SYSTEMS: As per HPI. PHYSICAL EXAMINATION: GENERAL: The patient is a well-developed, very friendly, somewhat obese male, who is alert , responsive, in no acute distress. VITAL SIGNS: Stable. He is afebrile. SKIN: Without generalized rash. HEENT: Within normal limits. NECK: Supple. LYMPH NODES: None palpable. CHEST: Decreased breath sounds at the bases. HEART: Without murmur or gallop. ABDOMEN: Soft, nontender. Without organosplenomegaly or masses. EXTREMITIES: Significant muscle wasting in the lower extremities. He has chronic wounds to the rig ht lower extremity, especially the medial malleolus. RECTAL AND GENITAL: Deferred. NEUROLOGIC: Patient is quadriplegic. His urine is positive for nitrites and greater than 50 white cells per high-powered field. IMPRESSION AND PLAN: The patient was started on imipenem. We will continue the imipenem and consid er switching him to ertapenem since it is Klebsiella. I will dictate my findings to the hospitalist . Dictated By: DIAN ROUSSEAU MD, JD/BRADY Conf#: [id number] DID#: [id number]
--- NOTE | 2016-06-04 15:06 | PN ---
Date/Time of Note Date/Time of Note DATE: 06/04/16 TIME: 15:04 Assessment/Plan VTE Prophylaxis VTE Prophylaxis Intervention: LMWH Lines/Catheters [facility] Saline Lock Urinary Cath still in place: No Assessment/Plan Assessment/Plan 1. UTI with possible pyelo: urine cx shows K.Pneumoniae only sensitive to Imipenem 2. Headache, unlikely shunt dysfunction, pain management 3. History of spina bifida with quadriplegia 4. History of hydrocephalus status post V-P shunt with multiple revisions 5. Chronic pain syndrome. 6. Chronic right lower extremity wound. 7. DVT prophylaxis: lovenox 8. D/C planning for tomorrow with iv invanz Subjective 24 Hr Interval Summary Free Text/Dictation afebrile. less back pain Exam/Review of Systems Vital Signs Vitals Vital Signs Date Time Temp Pulse Resp B/P Pulse Ox O2 Delivery O2 Flow Rate FiO2 06/04/16 10:01 95 140/95 06/04/16 08:05 97.6 20 96 06/02/16 08:24 Room Air Intake and Output 06/03/16 06/03/16 06/04/16 15:00 23:00 07:00 Intake Total 100 ml 1440 ml 920 ml Balance 100 ml 1440 ml 920 ml Exam Constitutional: alert, oriented, well developed Psych: nl mood/affect, no complaints Eyes: EOMI, PERRL, nl conjunctiva, nl lids ENMT: nl external ears & nose, nl lips & teeth, nl nasal mucosa & septum Neck: non-tender, supple Respiratory: clear to auscultation, normal air movement, No congested cough, No crackles/rales, No diminished breath sounds, No intercostal retraction, No labored breathing, No other, No respirations, No tactile fremitus, No wheezing Cardiovascular: nl pulses, regular rate and rhythm, No S3, No S4, No bruits, No diastolic murmur, No edema, No gallop, No irregular rhythm, No jugular venous distention (JVD), No murmurs/extra sounds, No other, No rub, No systolic murmur Gastrointestinal: nl liver, spleen, non-tender, soft, No ascites, No bowel sounds, No distended, No firm, No hepatomegaly, No mass , No other, No rebound or guarding, No splenomegaly, No surgical scars, No tender Musculoskeletal: nl extremities to inspection Extremities: normal pulses, No calf tenderness, No clubbing, No cyanosis, No edema, No other, No palpable cord, No pitting pedal edema, No tenderness Neurological: HOOKER LASTER II-XII intact, nl mental status, nl speech, nl strength Skin: nl turgor Medications Medications Current Medications Ondansetron HCl (Zofran Inj) 4 mg Q6H PRN IV NAUSEA AND/OR VOMITING; Start 06/02 at 09:00 Enoxaparin Sodium (Lovenox) 40 mg DAILY SC Last administered on 06/02/16 09:17 ; Admin Dose 40 MG; Start 06/02/16 at 09:00 Diphenhydramine HCl (Benadryl) 25 mg Q6H PRN IV ALLERGIC REACTION; Start at 10:00 Hydromorphone HCl (Dilaudid) 1 mg Q3H PRN IV PAIN Last administered on 14:29; Admin Dose 1 MG; Start 06/03/16 at 12:00 Nystatin (Nystatin Powder) 1 applic BID TOP Last administered on 06/04/16 08:30 ; Admin Dose 1 APPLIC; Start 06/03/16 at 21:00 Clonidine 0.1 mg 0.1 mg Q6H PRN PO SBP>160 Last administered on 06/04/16 08:26 ; Admin Dose 0.1 MG; Start 06/03/16 at 14:30 Ertapenem/Sodium Chloride (Invanz/NS) 100 ml @ 200 mls/hr Q24H IVPB ; Start 06/04/16 at 16:00 ZI ROTHMAN MD Jun 04, 2016 15:06
[2016-06-04] MEDS: ERTAPENEM SODIUM 1 GM in SOD CHLORIDE 0.9% 100 ML IVPB SCH (16:06)
--- NOTE | 2016-06-04 18:14 | RADRPT ---
PROCEDURE: XR Chest. CLINICAL INDICATION: Status post PICC line placement TECHNIQUE: PA and lateral chest x-ray. COMPARISON: Chest x-ray dated 05/18/2016 FINDINGS: Subtle blunting of the right costophrenic angle is seen. Tiny effusion versus scar could have this appearance. There is tubing overlapping the right lower hemithorax. There is a BASKETBALL COMMENTATOR shunt overlappin g the right chest, stable over time. The lungs are otherwise clear. The heart size is likely withi n normal limits with prominence of the epicardial fat pad. The mediastinal silhouette is unremarkab le. There is a right-sided PICC line with the tip in the superior vena cava, in perfect location. There is no pneumothorax and the osseous structures are unremarkable. IMPRESSION: 1. Right-sided PICC line in good position without pneumothorax. RPTAT: PP .Yan Matson MD, Date Time Electronically viewed and signed by .Yan Matson MD, on 06/04/2016 18:14 .B/
--- NOTE | 2016-06-04 18:58 | RADRPT ---
PROCEDURE: US guidance for PICC line CLINICAL INDICATION: PICC line placement TECHNIQUE: Multiple real-time images were acquired of the patient's arm utilizing a high resolutio n transducer. This was performed by the PICC line nurse for venous access. COMPARISON: None FINDINGS: Ultrasound guidance for PICC line placement. IMPRESSION: Ultrasound guidance for PICC line placement. RPTAT: AA .Lanre Burch MD, MD Date Time Electronically viewed and signed by .Lanre Burch MD, on 06/04/2016 18:57 .S/
[2016-06-04 19:56] LABS: ADD SCAN DIFF NO
[2016-06-04 19:58] LABS: BASOPHILS % 0.2 % (0.0-2.0); EOSINOPHILS # 0.6 10^3/ul (0.0-0.5); EOSINOPHILS % 7.1 % (0.0-7.0); HEMATOCRIT 35.9 % (42.0-52.0); LYMPHOCYTES # 2.4 10^3/ul (0.8-2.9); LYMPHOCYTES % 27.1 % (15.0-51.0); MEAN CORPUSCULAR HEMOGLOBIN 26.6 pg (29.0-33.0); MEAN CORPUSCULAR HGB CONC 30.6 g/dl (32.0-37.0); MEAN CORPUSCULAR VOLUME 86.9 fl (82.0-101.0); MEAN PLATELET VOLUME 9.2 fl (7.4-10.4); MONOCYTE # 0.8 10^3/ul (0.3-0.9); MONOCYTES % 9.3 % (0.0-11.0); NEUTROPHILS % 55.9 % (39.0-77.0); PLATELET COUNT 388 10^3/UL (140-415); RED BLOOD COUNT 4.13 10^6/ul (4.70-6.10); RED CELL DISTRIBUTION WIDTH 14.7 % (11.5-14.5)
[2016-06-04 20:16] LABS: POTASSIUM 3.7 mmol/L (3.5-5.1)
[2016-06-04 20:17] VITALS: BP 178/84; RESP 17
[2016-06-04 20:19] LABS: CREATININE 0.49 mg/dl (0.61-1.24)
[2016-06-04] MEDS: ONDANSETRON 4 MG INJ IV PRN (21:26)
[2016-06-05] MEDS: HYDROmorphONE 1 MG/ML SYG IV PRN ×5 (01:32→19:38)
[2016-06-05 08:21] VITALS: BP 167/79; RESP 20
[2016-06-05] MEDS: ENOXAPARIN 40 MG/0.4 ML SYG SC SCH (09:00)
[2016-06-05] MEDS: NYSTATIN 30 GM POWDER BTL TOP SCH ×2 (09:00→19:38)
[2016-06-05 09:06] VITALS: BP 152/70; PULSE 98
[2016-06-05] MEDS ORDERED: SOD CHLORIDE 0.9% 100 ML ONE (09:34)
[2016-06-05] MEDS: ONDANSETRON 4 MG INJ IV PRN ×2 (10:26→19:38)
[2016-06-05 10:44] VITALS: BP 159/84; PULSE 109
[2016-06-05 11:32] VITALS: BP 145/77; PULSE 98
--- NOTE | 2016-06-05 13:59 | PN ---
DATE: SUBJECTIVE: No events overnight. No fevers. Patient is lying comfortably in bed. He was started on Invanz yesterday. No labs this morning. Urine culture growing gram-negative rods. INDWELLINGS: PICC line. BAKER BREAD shunt. PHYSICAL EXAMINATION: GENERAL: Chronically ill-appearing, young man who is in no distress. HEENT: Head atraumatic, normocephalic. Sclerae anicteric. Buccal mucosa dry. NECK: Obese. CHEST: Rise symmetrical. Breath sounds clear, diminished to bases. HEART: S1, S2. ABDOMEN: Soft. Bowel tones present. EXTREMITIES: Without cyanosis. Bilateral edema. Bilateral chronic pressure sores. ASSESSMENT: 1. Recurrent urinary tract infection with a history of ESBL. 2. History of spina bifida. 3. History of hydrocephalus, status post BAKER BREAD shunt placement. 4. Morbid obesity. PLAN: The patient remains stable on appropriate antimicrobials. Continue present care. Dictated By: PAT RODRIGUEZ [place] JUDGE for DIAN AVILA/BRADY Conf#: [id number] DID#: [id number]
--- NOTE | 2016-06-05 15:14 | PN ---
Date/Time of Note Date/Time of Note DATE: 06/05/16 TIME: 15:10 Assessment/Plan VTE Prophylaxis VTE Prophylaxis Intervention: LMWH Lines/Catheters IV Catheter Type (from Nrsg): PICC Line Central line still needed: Yes Urinary Cath still in place: No Assessment/Plan Assessment/Plan 1. UTI with possible pyelo: urine cx shows K.Pneumoniae only sensitive to Imipenem 2. Headache, unlikely shunt dysfunction, pain management 3. History of spina bifida with quadriplegia 4. History of hydrocephalus status post V-P shunt with multiple revisions 5. Chronic pain syndrome. 6. Chronic right lower extremity wound. 7. DVT prophylaxis: lovenox 8. Discussed discharge plan with patient and casemanager, will arrange for discharge for tomorrow Subjective 24 Hr Interval Summary Free Text/Dictation afebrile Exam/Review of Systems Vital Signs Vitals Vital Signs Date Time Temp Pulse Resp B/P Pulse Ox O2 Delivery O2 Flow Rate FiO2 06/05/16 11:32 98 145/77 06/05/16 08:21 98.8 20 94 06/02/16 08:24 Room Air Intake and Output 06/04/16 06/04/16 06/05/16 15:00 23:00 07:00 Intake Total 100 ml 1100 ml 300 ml Balance 100 ml 1100 ml 300 ml Exam Constitutional: alert, oriented, well developed Psych: nl mood/affect, no complaints Head: atraumatic, normocephalic Eyes: EOMI, PERRL, nl conjunctiva ENMT: nl external ears & nose, nl lips & teeth Neck: non-tender, supple Respiratory: clear to auscultation, normal air movement, No congested cough, No crackles/rales, No diminished breath sounds, No intercostal retraction, No labored breathing, No other, No respirations, No tactile fremitus, No wheezing Cardiovascular: nl pulses, regular rate and rhythm, No S3, No S4, No bruits, No diastolic murmur, No edema, No gallop, No irregular rhythm, No jugular venous distention (JVD), No murmurs/extra sounds, No other, No rub, No systolic murmur Gastrointestinal: nl liver, spleen, non-tender, soft, No ascites, No bowel sounds, No distended, No firm, No hepatomegaly, No mass , No other, No rebound or guarding, No splenomegaly, No surgical scars, No tender Musculoskeletal: nl extremities to inspection Extremities: normal pulses, No calf tenderness, No clubbing, No cyanosis, No edema, No other, No palpable cord, No pitting pedal edema, No tenderness Neurological: PARARESCUE MANAGER II-XII intact, nl mental status, nl speech, nl strength Skin: nl turgor Lymph: nl lymph nodes Results Result Diagram: 06/04/16192906/04/161929 Results 24 hrs Laboratory Tests Test 06/04/16 19:30 Anion Gap 16 Basophils # 0.0 Basophils % 0.2 Blood Urea Nitrogen 14 Calcium Level 9.0 Carbon Dioxide Level 31 Chloride Level 101 Creatinine 0.49 L Eosinophils # 0.6 H Eosinophils % 7.1 H Glucose Level 99 Hematocrit 35.9 L Hemoglobin 11.0 L Lymphocytes # 2.4 Lymphocytes % 27.1 Mean Corpuscular Hemoglobin 26.6 L Mean Corpuscular Hemoglobin Concent 30.6 L Mean Corpuscular Volume 86.9 Mean Platelet Volume 9.2 Monocytes # 0.8 Monocytes % 9.3 Neutrophils # 5.0 Neutrophils % 55.9 Nucleated Red Blood Cells # 0.0 Nucleated Red Blood Cells % 0.0 Platelet Count 388 # Potassium Level 3.7 Red Blood Count 4.13 L Red Cell Distribution Width 14.7 H Sodium Level 144 White Blood Count 9.0 # Medications Medications Current Medications Ondansetron HCl (Zofran Inj) 4 mg Q6H PRN IV NAUSEA AND/OR VOMITING Last administered on 06/05/16 10:26; Admin Dose 4 MG; Start 06/02/16 at 09:00 Enoxaparin Sodium (Lovenox) 40 mg DAILY SC Last administered on 06/02/16 09:17 ; Admin Dose 40 MG; Start 06/02/16 at 09:00 Diphenhydramine HCl (Benadryl) 25 mg Q6H PRN IV ALLERGIC REACTION; Start at 10:00 Hydromorphone HCl (Dilaudid) 1 mg Q3H PRN IV PAIN Last administered on 14:35; Admin Dose 1 MG; Start 06/03/16 at 12:00 Nystatin (Nystatin Powder) 1 applic BID TOP Last administered on 06/04/16 20:38 ; Admin Dose 1 APPLIC; Start 06/03/16 at 21:00 Clonidine 0.1 mg 0.1 mg Q6H PRN PO SBP>160 Last administered on 06/05/16 10:29 ; Admin Dose 0.1 MG; Start 06/03/16 at 14:30 Ertapenem/Sodium Chloride (Invanz/NS) 100 ml @ 200 mls/hr Q24H IVPB Last administered on 06/04/16 16:06; Admin Dose 200 MLS/HR; Start 06/04/16 at 16:00 IV Flush (NS 10 ml) 10 ml PRN PRN IV IV PROTOCOL; Start 06/04/16 at 19:00 ZI ROTHMAN MD Jun 05, 2016 15:14
[2016-06-05] MEDS: ERTAPENEM SODIUM 1 GM in SOD CHLORIDE 0.9% 100 ML IVPB SCH (16:00)
[2016-06-05 19:30] VITALS: BP 135/83; RESP 18
[2016-06-06] MEDS: HYDROmorphONE 1 MG/ML SYG IV PRN ×9 (00:52→22:26)
[2016-06-06] MEDS: ONDANSETRON 4 MG INJ IV PRN ×2 (00:52→04:02)
[2016-06-06 07:20] VITALS: BP 154/90; RESP 18
[2016-06-06] MEDS: NYSTATIN 30 GM POWDER BTL TOP SCH ×2 (08:07→20:22)
[2016-06-06] MEDS: ENOXAPARIN 40 MG/0.4 ML SYG SC SCH (08:07)
--- NOTE | 2016-06-06 13:24 | CONS ---
Date/Time of Note Date/Time of Note DATE: 06/06/16 TIME: 13:23 Assessment/Plan Assessment/Plan Chief Complaint/Hosp Course SUBJECTIVE: No events overnight. Alert, c/o difficulty with urination. No fevers. Patient is lying comfortably in bed. INDWELLINGS: PICC line. DENTAL HYGIENE ADMINISTRATIVE ASSISTANT shunt. PHYSICAL EXAMINATION: GENERAL: Chronically ill-appearing, young man who is in no distress. HEENT: Head atraumatic, normocephalic. Sclerae anicteric. Buccal mucosa dry. NECK: Obese. CHEST: Rise symmetrical. Breath sounds clear, diminished to bases. HEART: S1, S2. ABDOMEN: Soft. Bowel tones present. EXTREMITIES: Without cyanosis. Bilateral edema. Bilateral chronic pressure sores. ASSESSMENT: 1. Recurrent urinary tract infection==> Kleb ESBL. 2. History of spina bifida. 3. History of hydrocephalus, status post DENTAL HYGIENE ADMINISTRATIVE ASSISTANT shunt placement. 4. Morbid obesity. PLAN: The patient remains stable, will check PBR, continue abx, straight cath or Gonzalez prn DW stafff Problems: Consultation Date/Type/Reason Admit Date/Time Jun 02, 2016 at 08:09 Initial Consult Date Type of Consultation: id Exam/Review of Systems Vital Signs Vitals Vital Signs Date Time Temp Pulse Resp B/P Pulse Ox O2 Delivery O2 Flow Rate FiO2 06/06/16 08:09 Nasal Cannula 2.0 06/06/16 07:20 98.4 80 18 154/90 98 Intake and Output 06/05/16 06/05/16 06/06/16 15:00 23:00 07:00 Intake Total 400 ml 200 ml Balance 400 ml 200 ml Results Result Diagram: 06/04/16192906/04/161929 Medications Medications Current Medications Ondansetron HCl (Zofran Inj) 4 mg Q6H PRN IV NAUSEA AND/OR VOMITING Last administered on 06/06/16 04:02; Admin Dose 4 MG; Start 06/02/16 at 09:00 Enoxaparin Sodium (Lovenox) 40 mg DAILY SC Last administered on 06/02/16 09:17 ; Admin Dose 40 MG; Start 06/02/16 at 09:00 Diphenhydramine HCl (Benadryl) 25 mg Q6H PRN IV ALLERGIC REACTION; Start at 10:00 Nystatin (Nystatin Powder) 1 applic BID TOP Last administered on 06/06/16 08:07 ; Admin Dose 1 APPLIC; Start 06/03/16 at 21:00 Clonidine 0.1 mg 0.1 mg Q6H PRN PO SBP>160 Last administered on 06/05/16 10:29 ; Admin Dose 0.1 MG; Start 06/03/16 at 14:30 Ertapenem/Sodium Chloride (Invanz/NS) 100 ml @ 200 mls/hr Q24H IVPB Last administered on 06/05/16 16:00; Admin Dose 200 MLS/HR; Start 06/04/16 at 16:00 IV Flush (NS 10 ml) 10 ml PRN PRN IV IV PROTOCOL; Start 06/04/16 at 19:00 Hydromorphone HCl (Dilaudid) 1 mg Q2H PRN IV PAIN Last administered on 12:25; Admin Dose 1 MG; Start 06/06/16 at 11:00 PAT RODRIGUEZ NP Jun 06, 2016 13:24
[2016-06-06] MEDS ORDERED: HYDR2TAB3 PO (16:31)
[2016-06-06] MEDS ORDERED: ERTA1VIA IV (16:31)
--- NOTE | 2016-06-06 16:47 | DS ---
Date/Time of Note Date/Time of Note DATE: 06/06/16 TIME: 16:32 Discharge Summary Admission/Discharge Info Admit Date/Time Jun 02, 2016 at 08:09 Discharge Date/Time Final Diagnosis 1. UTI, invanz for 7 days 2. Headache, unlikely shunt dysfunction, pain management 3. History of spina bifida with quadriplegia 4. History of hydrocephalus status post V-P shunt with multiple revisions 5. Chronic pain syndrome. 6. Chronic right lower extremity wound. Patient Condition: Stable Hx of Present Illness This is an unfortunate 26-year-old gentleman with past medical history of spina bifida with debility as well as history of right lower extremity chronic wound; quadriplegia as result of spina bifida; recurrent UTI; history of hydrocephalus , status post PLANER TAILER shunt with multiple revisions presented to ER c/o headache and left lower back/flank pain. In ER, CT head showed no acute abnormalities. plan was for pt to be discharged from ER, but after ambulance arrived to pick him up, it was noted that his urine cx is positive for K.Pneumoniae only sensitive to Imipenem. As such. pt is admitted for IV abx. Hospital Course Patient is diagnosed with UTI, urine culture positive for K PNEUMO ESBL. He will be on Invanz for 7 days. Home Meds Active Scripts Hydromorphone Hcl (Dilaudid) 2 Mg Tab, 2 MG PO q4h prn, #20 TAB Prov:ZI ROTHMAN MD 06/06/16 Ertapenem Sodium (Invanz) 1 Gm Vial.port, 1 GM IV DAILY for 7 Days Prov:ZI ROTHMAN MD 06/06/16 Follow-up Plan PCP in one week ZI ROTHMAN MD Jun 06, 2016 16:46
[2016-06-06] MEDS: ERTAPENEM SODIUM 1 GM in SOD CHLORIDE 0.9% 100 ML IVPB SCH (17:15)
[2016-06-06 20:10] VITALS: BP 136/80; RESP 18
[2016-06-07] MEDS: HYDROmorphONE 1 MG/ML SYG IV PRN ×8 (00:35→18:27)
[2016-06-07 07:35] VITALS: BP 160/87; RESP 18
[2016-06-07] MEDS: ENOXAPARIN 40 MG/0.4 ML SYG SC SCH (07:53)
[2016-06-07] MEDS: NYSTATIN 30 GM POWDER BTL TOP SCH ×2 (07:53→21:00)
--- NOTE | 2016-06-07 12:31 | CONS ---
Date/Time of Note Date/Time of Note DATE: 06/07/16 TIME: 12:30 Assessment/Plan Assessment/Plan Chief Complaint/Hosp Course SUBJECTIVE: No events overnight. Alert. No fevers. Patient is lying comfortably in bed. INDWELLINGS: PICC line. CORN SHELLER OPERATOR shunt. PHYSICAL EXAMINATION: GENERAL: Chronically ill-appearing, young man who is in no distress. HEENT: Head atraumatic, normocephalic. Sclerae anicteric. Buccal mucosa dry. NECK: Obese. CHEST: Rise symmetrical. Breath sounds clear, diminished to bases. HEART: S1, S2. ABDOMEN: Soft. Bowel tones present. EXTREMITIES: Without cyanosis. Bilateral edema. Bilateral chronic pressure sores. ASSESSMENT: 1. Recurrent urinary tract infection==> Kleb ESBL. 2. History of spina bifida. 3. History of hydrocephalus, status post CORN SHELLER OPERATOR shunt placement. 4. Morbid obesity. PLAN: The patient remains stable, continue abx for 7 more days, straight cath or Gonzalez prn DW staff/pt Problems: Consultation Date/Type/Reason Admit Date/Time Jun 02, 2016 at 08:09 Type of Consultation: id Exam/Review of Systems Vital Signs Vitals Vital Signs Date Time Temp Pulse Resp B/P Pulse Ox O2 Delivery O2 Flow Rate FiO2 06/07/16 07:35 98.2 18 18 160/87 99 06/06/16 20:00 Nasal Cannula 2.0 Intake and Output 06/06/16 06/06/16 06/07/16 15:00 23:00 07:00 Intake Total 100 ml 200 ml Balance 100 ml 200 ml Results Result Diagram: 06/04/16192906/04/161929 Medications Medications Current Medications Ondansetron HCl (Zofran Inj) 4 mg Q6H PRN IV NAUSEA AND/OR VOMITING Last administered on 06/06/16 04:02; Admin Dose 4 MG; Start 06/02/16 at 09:00 Enoxaparin Sodium (Lovenox) 40 mg DAILY SC Last administered on 06/02/16 09:17 ; Admin Dose 40 MG; Start 06/02/16 at 09:00 Diphenhydramine HCl (Benadryl) 25 mg Q6H PRN IV ALLERGIC REACTION; Start at 10:00 Nystatin (Nystatin Powder) 1 applic BID TOP Last administered on 06/07/16 07: 53; Admin Dose 1 APPLIC; Start 06/03/16 at 21:00 Clonidine 0.1 mg 0.1 mg Q6H PRN PO SBP>160 Last administered on 06/05/16 10:29 ; Admin Dose 0.1 MG; Start 06/03/16 at 14:30 Ertapenem/Sodium Chloride (Invanz/NS) 100 ml @ 200 mls/hr Q24H IVPB Last administered on 06/06/16 17:15; Admin Dose 200 MLS/HR; Start 06/04/16 at 16:00 IV Flush (NS 10 ml) 10 ml PRN PRN IV IV PROTOCOL; Start 06/04/16 at 19:00 Hydromorphone HCl (Dilaudid) 1 mg Q2H PRN IV PAIN Last administered on 12:02; Admin Dose 1 MG; Start 06/06/16 at 11:00 PAT RODRIGUEZ NP Jun 07, 2016 12:31
--- NOTE | 2016-06-07 14:14 | DS ---
Date/Time of Note Date/Time of Note DATE: 06/07/16 TIME: 14:11 Discharge Summary Admission/Discharge Info Admit Date/Time Jun 02, 2016 at 08:09 Discharge Date/Time Final Diagnosis 1. UTI, invanz for 7 days 2. Headache, unlikely shunt dysfunction, pain management 3. History of spina bifida with quadriplegia 4. History of hydrocephalus status post V-P shunt with multiple revisions 5. Chronic pain syndrome. 6. Chronic right lower extremity wound. Patient Condition: Stable Hospital Course This is a 26-year-old gentleman with past medical history of spina bifida with debility as well as history of right lower extremity chronic wound; quadriplegia as result of spina bifida; recurrent UTI; history of hydrocephalus , status post GRID MAKER shunt with multiple revisions presented to ER c/o headache and left lower back/flank pain. In ER, CT head showed no acute abnormalities. plan was for pt to be discharged from ER, but after ambulance arrived to pick him up , it was noted that his urine cx is positive for K.Pneumoniae only sensitive to Imipenem. As such. pt is admitted for IV abx. Patient is diagnosed with UTI, urine culture positive for K PNEUMO ESBL. He will be on Invanz for 7 days through PICC line. Home Meds Active Scripts Hydromorphone Hcl (Dilaudid) 2 Mg Tab, 2 MG PO q4h prn, #20 TAB Prov:ZI ROTHMAN MD 06/06/16 Ertapenem Sodium (Invanz) 1 Gm Vial.port, 1 GM IV DAILY for 7 Days Prov:ZI ROTHMAN MD 06/06/16 Follow-up Plan Home health for IV antibiotics PCP in one week ZI ROTHMAN MD Jun 07, 2016 14:14
[2016-06-07] MEDS: ERTAPENEM SODIUM 1 GM in SOD CHLORIDE 0.9% 100 ML IVPB SCH (15:04)
[2016-06-07 20:53] VITALS: BP 136/79; RESP 20
[2016-06-08] MEDS: HYDROmorphONE 1 MG/ML SYG IV PRN ×7 (00:44→20:02)
[2016-06-08] MEDS: ONDANSETRON 4 MG INJ IV PRN (06:14)
[2016-06-08] MEDS ORDERED: ALTEPLASE (CATHFLO) 2 MG INJ CATHETER ONE (07:00)
[2016-06-08 08:26] VITALS: BP 144/85; RESP 15
[2016-06-08] MEDS: ENOXAPARIN 40 MG/0.4 ML SYG SC SCH (09:28)
--- NOTE | 2016-06-08 11:01 | PN ---
Date/Time of Note Date/Time of Note DATE: 06/08/16 TIME: 10:59 Assessment/Plan VTE Prophylaxis VTE Prophylaxis Intervention: other Lines/Catheters [facility] P[facility] Line Central line still needed: Yes Urinary Cath still in place: No Assessment/Plan Problems: (1) Acute pyonephrosis Status: Acute Comment: He has a resistant infection requiring IV antibiotics. It had been set up for her for him to go home to receive the IV antibiotics however his home environment is not presently capable of managing this. As such she remains here receiving IV antibiotics. There is a specific stop date which have included into the orders. When he is able to go home and be managed there or go to another facility for the IV antibiotics he can then be safely discharged. 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: Chronic Comment: Noted (3) Urinary tract infection Status: Acute Comment: As above Subjective 24 Hr Interval Summary Free Text/Dictation Patient notes some headache pain but otherwise stable and no new symptoms Constitutional: no complaints Respiratory: no complaints Cardiovascular: no complaints Gastrointestinal: no complaints Exam/Review of Systems Vital Signs Vitals Vital Signs Date Time Temp Pulse Resp B/P Pulse Ox O2 Delivery O2 Flow Rate FiO2 06/08/16 08:26 98.7 111 15 144/85 98 06/07/16 20:00 Nasal Cannula 2.0 Intake and Output 06/07/16 06/07/16 06/08/16 15:00 23:00 07:00 Intake Total 500 ml 580 ml Balance 500 ml 580 ml Exam Constitutional: alert, oriented Respiratory: clear to auscultation, normal air movement Cardiovascular: nl pulses, regular rate and rhythm Results Result Diagram: 06/04/16192906/04/161929 Medications Medications Current Medications Ondansetron HCl (Zofran Inj) 4 mg Q6H PRN IV NAUSEA AND/OR VOMITING Last administered on 06/08/16 06:14; Admin Dose 4 MG; Start 06/02/16 at 09:00 Enoxaparin Sodium (Lovenox) 40 mg DAILY SC Last administered on 06/08/16 09:28 ; Admin Dose 40 MG; Start 06/02/16 at 09:00 Diphenhydramine HCl (Benadryl) 25 mg Q6H PRN IV ALLERGIC REACTION; Start at 10:00 Nystatin (Nystatin Powder) 1 applic BID TOP Last administered on 06/07/16 07: 53; Admin Dose 1 APPLIC; Start 06/03/16 at 21:00 Clonidine 0.1 mg 0.1 mg Q6H PRN PO SBP>160 Last administered on 06/05/16 10:29 ; Admin Dose 0.1 MG; Start 06/03/16 at 14:30 Ertapenem/Sodium Chloride (Invanz/NS) 100 ml @ 200 mls/hr Q24H IVPB Last administered on 06/07/16 15:04; Admin Dose 200 MLS/HR; Start 06/04/16 at 16:00; Stop 06/14/16 at 20:00 IV Flush (NS 10 ml) 10 ml PRN PRN IV IV PROTOCOL; Start 06/04/16 at 19:00 Hydromorphone HCl (Dilaudid) 1 mg Q2H PRN IV PAIN Last administered on 09:29; Admin Dose 1 MG; Start 06/06/16 at 11:00 ELIZABETH MEEKS MD Jun 08, 2016 11:00
[2016-06-08] MEDS: NYSTATIN 30 GM POWDER BTL TOP SCH ×2 (14:46→20:03)
[2016-06-08] MEDS: ERTAPENEM SODIUM 1 GM in SOD CHLORIDE 0.9% 100 ML IVPB SCH (16:41)
--- NOTE | 2016-06-08 17:16 | CONS ---
Date/Time of Note Date/Time of Note DATE: 06/08/16 TIME: 17:15 Assessment/Plan Assessment/Plan Chief Complaint/Hosp Course ID PROGRESS NOTE TOTAL ABX DAY =>Ertapenem 06/04 - 06/14 24H INTERVAL SUMMARY * Stable, no fevers, * DC planning in place back to SNF on ABX PHYSICAL EXAMINATION: GENERAL: yo lethargic HEENT: Unremarkable CHEST: Equal chest rise bilaterally, without dyspnea on observation HEART: Pulse RRR ABDOMEN: Soft EXTREMITIES: Warm SKIN: See hard chart skin assessment ID ASSESSMENT: 26 yo Morbid Obese M w/PMHx spina bifida admit with: 1. Recurrent urinary tract infection==> Kleb ESBL. 2. Neurogenic bladder 3. History of hydrocephalus, status post PATHOLOGY COLLECTOR shunt placement. INVASIVES: PIV, VPS ABX ALLERGY: PCN, Cephalosporin CURRENT ABX: =>Ertapenem 06/04 - 06/14 ID RECOMMENDATIONS: 1. DC Planning => back to SNF pending on current ABX =>Ertapenem 06/04 - 06/14 . Problems: Consultation Date/Type/Reason Admit Date/Time Jun 02, 2016 at 08:09 Initial Consult Date Type of Consultation: id Exam/Review of Systems Vital Signs Vitals Vital Signs Date Time Temp Pulse Resp B/P Pulse Ox O2 Delivery O2 Flow Rate FiO2 06/08/16 08:26 98.7 111 15 144/85 98 06/07/16 20:00 Nasal Cannula 2.0 Intake and Output 06/07/16 06/07/16 06/08/16 15:00 23:00 07:00 Intake Total 500 ml 580 ml Balance 500 ml 580 ml Results Result Diagram: 06/04/16192906/04/161929 Medications Medications Current Medications Ondansetron HCl (Zofran Inj) 4 mg Q6H PRN IV NAUSEA AND/OR VOMITING Last administered on 06/08/16 06:14; Admin Dose 4 MG; Start 06/02/16 at 09:00 Enoxaparin Sodium (Lovenox) 40 mg DAILY SC Last administered on 06/08/16 09:28 ; Admin Dose 40 MG; Start 06/02/16 at 09:00 Diphenhydramine HCl (Benadryl) 25 mg Q6H PRN IV ALLERGIC REACTION; Start at 10:00 Nystatin (Nystatin Powder) 1 applic BID TOP Last administered on 06/08/16 14: 46; Admin Dose 1 APPLIC; Start 06/03/16 at 21:00 Clonidine 0.1 mg 0.1 mg Q6H PRN PO SBP>160 Last administered on 06/05/16 10:29 ; Admin Dose 0.1 MG; Start 06/03/16 at 14:30 Ertapenem/Sodium Chloride (Invanz/NS) 100 ml @ 200 mls/hr Q24H IVPB Last administered on 06/08/16 16:41; Admin Dose 200 MLS/HR; Start 06/04/16 at 16:00; Stop 06/14/16 at 20:00 IV Flush (NS 10 ml) 10 ml PRN PRN IV IV PROTOCOL; Start 06/04/16 at 19:00 Hydromorphone HCl (Dilaudid) 1 mg Q2H PRN IV PAIN Last administered on 14:46; Admin Dose 1 MG; Start 06/06/16 at 11:00 DALIA OCASIO NP Jun 08, 2016 17:15
[2016-06-09] MEDS: HYDROmorphONE 1 MG/ML SYG IV PRN ×5 (01:25→20:59)
[2016-06-09 08:43] VITALS: BP 159/79; RESP 18
[2016-06-09] MEDS: NYSTATIN 30 GM POWDER BTL TOP SCH ×2 (09:54→20:32)
[2016-06-09] MEDS: ENOXAPARIN 40 MG/0.4 ML SYG SC SCH (09:55)
--- NOTE | 2016-06-09 10:04 | PN ---
Date/Time of Note Date/Time of Note DATE: 06/09/16 TIME: 10:02 Assessment/Plan VTE Prophylaxis VTE Prophylaxis Intervention: other Lines/Catheters IV Catheter Type (from Nrs): PICC Line Central line still needed: Yes Urinary Cath still in place: No Assessment/Plan Problems: (1) Acute pyonephrosis Status: Acute Comment: Remains on IV antibiotics through the PICC line. He is responding well to the treatment and can resume to the ECF assuming that all arrangements are made to continue the medications. 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 Still intermittent pain relieved with pain medication Constitutional: no complaints (Denies fevers chills or sweats) Respiratory: no complaints Cardiovascular: no complaints Gastrointestinal: no complaints Exam/Review of Systems Vital Signs Vitals Vital Signs Date Time Temp Pulse Resp B/P Pulse Ox O2 Delivery O2 Flow Rate FiO2 06/09/16 08:43 98.1 84 18 159/79 100 06/08/16 20:00 Nasal Cannula 2.0 Intake and Output 06/08/16 06/08/16 06/09/16 15:00 23:00 07:00 Intake Total 360 ml 820 ml Balance 360 ml 820 ml Exam Constitutional: alert, oriented Respiratory: clear to auscultation, normal air movement Cardiovascular: nl pulses, regular rate and rhythm Gastrointestinal: nl liver, spleen, non-tender, soft Medications Medications Current Medications Ondansetron HCl (Zofran Inj) 4 mg Q6H PRN IV NAUSEA AND/OR VOMITING Last administered on 06/08/16 06:14; Admin Dose 4 MG; Start 06/02/16 at 09:00 Enoxaparin Sodium (Lovenox) 40 mg DAILY SC Last administered on 06/08/16 09:28 ; Admin Dose 40 MG; Start 06/02/16 at 09:00 Diphenhydramine HCl (Benadryl) 25 mg Q6H PRN IV ALLERGIC REACTION; Start at 10:00 Nystatin (Nystatin Powder) 1 applic BID TOP Last administered on 06/08/16 20: 03; Admin Dose 1 APPLIC; Start 06/03/16 at 21:00 Clonidine 0.1 mg 0.1 mg Q6H PRN PO SBP>160 Last administered on 06/05/16 10:29 ; Admin Dose 0.1 MG; Start 06/03/16 at 14:30 Ertapenem/Sodium Chloride (Invanz/NS) 100 ml @ 200 mls/hr Q24H IVPB Last administered on 06/08/16 16:41; Admin Dose 200 MLS/HR; Start 06/04/16 at 16:00; Stop 06/14/16 at 20:00 IV Flush (NS 10 ml) 10 ml PRN PRN IV IV PROTOCOL; Start 06/04/16 at 19:00 Hydromorphone HCl (Dilaudid) 1 mg Q2H PRN IV PAIN Last administered on 06:07; Admin Dose 1 MG; Start 06/06/16 at 11:00 ELIZABETH MEEKS MD Jun 09, 2016 10:04
[2016-06-09] MEDS: ERTAPENEM SODIUM 1 GM in SOD CHLORIDE 0.9% 100 ML IVPB SCH (16:44)
--- NOTE | 2016-06-09 19:09 | CONS ---
Date/Time of Note Date/Time of Note DATE: 06/09/16 TIME: 19:07 Assessment/Plan Assessment/Plan Chief Complaint/Hosp Course ID PROGRESS NOTE TOTAL ABX DAY =>Ertapenem 06/04 - 06/14 24H INTERVAL SUMMARY * A/A/o - responsive, calm, stable, no fevers, no complaints, resting watching TV * DC planning in place back to SNF on ABX PHYSICAL EXAMINATION: GENERAL: Obese HEENT: Unremarkable CHEST: Equal chest rise bilaterally, without dyspnea on observation HEART: Pulse RRR ABDOMEN: Soft EXTREMITIES: Warm SKIN: See hard chart skin assessment ID ASSESSMENT: 26 yo Morbid Obese M w/PMHx spina bifida admit with: 1. Recurrent urinary tract infection==> Kleb ESBL. 2. Neurogenic bladder 3. History of hydrocephalus, status post BEHAVIOR SUPPORT SPECIALIST shunt placement. INVASIVES: PIV, VPS ABX ALLERGY: PCN, Cephalosporin CURRENT ABX: =>Ertapenem 06/04 - 06/14 ID RECOMMENDATIONS: 1. DC Planning => back to SNF pending on current ABX =>Ertapenem 06/04 - 06/14 . Problems: Consultation Date/Type/Reason Admit Date/Time Jun 02, 2016 at 08:09 Type of Consultation: id Exam/Review of Systems Vital Signs Vitals Vital Signs Date Time Temp Pulse Resp B/P Pulse Ox O2 Delivery O2 Flow Rate FiO2 06/09/16 08:43 98.1 84 18 159/79 100 06/08/16 20:00 Nasal Cannula 2.0 Intake and Output 06/08/16 06/08/16 06/09/16 15:00 23:00 07:00 Intake Total 360 ml 820 ml Balance 360 ml 820 ml Medications Medications Current Medications Ondansetron HCl (Zofran Inj) 4 mg Q6H PRN IV NAUSEA AND/OR VOMITING Last administered on 06/08/16 06:14; Admin Dose 4 MG; Start 06/02/16 at 09:00 Enoxaparin Sodium (Lovenox) 40 mg DAILY SC Last administered on 06/09/16 09:55 ; Admin Dose 40 MG; Start 06/02/16 at 09:00 Diphenhydramine HCl (Benadryl) 25 mg Q6H PRN IV ALLERGIC REACTION; Start at 10:00 Nystatin (Nystatin Powder) 1 applic BID TOP Last administered on 06/09/16 09: 54; Admin Dose 1 APPLIC; Start 06/03/16 at 21:00 Clonidine 0.1 mg 0.1 mg Q6H PRN PO SBP>160 Last administered on 06/05/16 10:29 ; Admin Dose 0.1 MG; Start 06/03/16 at 14:30 Ertapenem/Sodium Chloride (Invanz/NS) 100 ml @ 200 mls/hr Q24H IVPB Last administered on 06/09/16 16:44; Admin Dose 200 MLS/HR; Start 06/04/16 at 16:00; Stop 06/14/16 at 20:00 IV Flush (NS 10 ml) 10 ml PRN PRN IV IV PROTOCOL; Start 06/04/16 at 19:00 Hydromorphone HCl (Dilaudid) 1 mg Q2H PRN IV PAIN Last administered on 16:49; Admin Dose 1 MG; Start 06/06/16 at 11:00 DALIA OCASIO NP Jun 09, 2016 19:08
[2016-06-09 20:36] VITALS: BP 162/82; RESP 18
[2016-06-09 21:45] VITALS: BP 154/84; PULSE 95; RESP 19
[2016-06-10 02:41] LABS: ADD SCAN DIFF NO
[2016-06-10 02:45] LABS: BASOPHILS % 0.2 % (0.0-2.0); EOSINOPHILS # 0.2 10^3/ul (0.0-0.5); EOSINOPHILS % 1.6 % (0.0-7.0); HEMATOCRIT 39.4 % (42.0-52.0); LYMPHOCYTES # 3.2 10^3/ul (0.8-2.9); LYMPHOCYTES % 26.5 % (15.0-51.0); MEAN CORPUSCULAR HEMOGLOBIN 26.7 pg (29.0-33.0); MEAN CORPUSCULAR HGB CONC 30.5 g/dl (32.0-37.0); MEAN CORPUSCULAR VOLUME 87.6 fl (82.0-101.0); MEAN PLATELET VOLUME 9.4 fl (7.4-10.4); MONOCYTE # 0.9 10^3/ul (0.3-0.9); MONOCYTES % 7.7 % (0.0-11.0); NEUTROPHIL # 7.7 10^3/ul (1.6-7.5); NEUTROPHILS % 63.7 % (39.0-77.0); PLATELET COUNT 355 10^3/UL (140-415); RED CELL DISTRIBUTION WIDTH 14.1 % (11.5-14.5); WHITE BLOOD COUNT 12.2 10^3/ul (4.8-10.8)
[2016-06-10 02:54] LABS: ALBUMIN 3.7 g/dl (3.3-4.9)
[2016-06-10 02:55] LABS: POTASSIUM 3.3 mmol/L (3.5-5.1)
[2016-06-10 02:57] LABS: ALBUMIN/GLOBULIN RATIO 0.94; BILIRUBIN,INDIRECT 0.3 mg/dl (0-1.1); BILIRUBIN,TOTAL 0.3 mg/dl (0.2-1.3); CREATININE 0.5 mg/dl (0.61-1.24); TOTAL PROTEIN 7.6 g/dl (6.1-8.1)
[2016-06-10 02:58] LABS: CALCIUM 9.3 mg/dl (8.4-10.2)
[2016-06-10 04:00] LABS: THYROID STIMULATING HORMONE 0.659 MIU/L (0.465-4.680)
[2016-06-10] MEDS ORDERED: POTASSIUM CHLORIDE (SR) 20 MEQ TAB PO STA (05:15)
[2016-06-10] MEDS: HYDROmorphONE 1 MG/ML SYG IV PRN ×4 (06:23→19:03)
[2016-06-10 07:59] VITALS: BP 136/83; RESP 19
[2016-06-10] MEDS: ENOXAPARIN 40 MG/0.4 ML SYG SC SCH (09:11)
[2016-06-10] MEDS: NYSTATIN 30 GM POWDER BTL TOP SCH ×2 (09:12→21:19)
[2016-06-10 12:44] LABS: ADD UMIC YES; URINE BILIRUBIN (Dip) 1+ (NEGATIVE); URINE BLOOD (Dip) 1+ (NEGATIVE); URINE COLOR YELLOW (YELLOW); URINE GLUCOSE (Dip) NEGATIVE (NEGATIVE); URINE KETONES (Dip) NEGATIVE (NEGATIVE); URINE LEUKOCYTE ESTERASE (Dip) TRACE (NEGATIVE); URINE NITRITE (Dip) NEGATIVE (NEGATIVE); URINE TOTAL PROTEIN (Dip) 1+ (NEGATIVE); URINE UROBILINOGEN (Dip) 0.2 E.U./dL (0.1-1.0)
--- NOTE | 2016-06-10 12:54 | CONS ---
Date/Time of Note Date/Time of Note DATE: 06/10/16 TIME: 12:53 Assessment/Plan Assessment/Plan Chief Complaint/Hosp Course SUBJECTIVE: No events overnight. No fevers. Patient is sleeping, lying comfortably in bed. INDWELLINGS: PICC line. COURTESY CAR DRIVER shunt. PHYSICAL EXAMINATION: GENERAL: Chronically ill-appearing, young man who is in no distress. HEENT: Head atraumatic, normocephalic. Sclerae anicteric. Buccal mucosa dry. NECK: Obese. CHEST: Rise symmetrical. Breath sounds clear, diminished to bases. HEART: S1, S2. ABDOMEN: Soft. Bowel tones present. EXTREMITIES: Without cyanosis. Bilateral edema. Bilateral chronic pressure sores. ASSESSMENT: 1. Recurrent urinary tract infection==> Kleb ESBL. 2. History of spina bifida. 3. History of hydrocephalus, status post COURTESY CAR DRIVER shunt placement. 4. Morbid obesity. PLAN: The patient remains stable, continue abx till 06/14, straight cath prn DW staff Problems: Consultation Date/Type/Reason Admit Date/Time Jun 02, 2016 at 08:09 Type of Consultation: id Exam/Review of Systems Vital Signs Vitals Vital Signs Date Time Temp Pulse Resp B/P Pulse Ox O2 Delivery O2 Flow Rate FiO2 06/10/16 07:59 98.0 82 19 136/83 100 06/09/16 21:45 Nasal Cannula 06/09/16 20:00 2.0 Intake and Output 06/09/16 06/09/16 06/10/16 15:00 23:00 07:00 Intake Total 680 ml 200 ml Balance 680 ml 200 ml Results Result Diagram: 06/10/16 0230 06/10/16 0230 Results 24 hrs Laboratory Tests Test 06/10/16 01:58 06/10/16 02:30 06/10/16 03:30 Bedside Glucose 130 Alanine Aminotransferase (ALT/SGPT) 54 Albumin 3.7 Albumin/Globulin Ratio 0.94 Alkaline Phosphatase 171 H Anion Gap 18 H Aspartate Amino Transf (AST/SGOT) 29 Basophils # 0.0 Basophils % 0.2 Blood Urea Nitrogen 18 Calcium Level 9.3 Carbon Dioxide Level 31 Chloride Level 102 Creatinine 0.50 L Direct Bilirubin 0.00 Eosinophils # 0.2 Eosinophils % 1.6 Globulin 3.90 H Glucose Level 133 Hematocrit 39.4 L Hemoglobin 12.0 L Indirect Bilirubin 0.3 Lymphocytes # 3.2 H Lymphocytes % 26.5 Mean Corpuscular Hemoglobin 26.7 L Mean Corpuscular Hemoglobin Concent 30.5 L Mean Corpuscular Volume 87.6 Mean Platelet Volume 9.4 Monocytes # 0.9 Monocytes % 7.7 Neutrophils # 7.7 H Neutrophils % 63.7 Nucleated Red Blood Cells # 0.0 Nucleated Red Blood Cells % 0.0 Platelet Count 355 Potassium Level 3.3 L Red Blood Count 4.50 L Red Cell Distribution Width 14.1 Sodium Level 148 H Thyroid Stimulating Hormone (TSH) 0.659 Total Bilirubin 0.3 Total Protein 7.6 White Blood Count 12.2 #H Urine Bilirubin 1+ H Urine Clarity SLIGHTLY CLOUDY Urine Color YELLOW Urine Glucose NEGATIVE Urine Hemoglobin 1+ H Urine Ictotest Pending Urine Ketones NEGATIVE Urine Leukocyte Esterase TRACE H Urine Microscopic RBC Pending Urine Microscopic WBC Pending Urine Nitrite NEGATIVE Urine Specific [place] 1.020 Urine Total Protein 1+ H Urine Urobilinogen 0.2 E.U./dL Urine pH 6.0 Medications Medications Current Medications Ondansetron HCl (Zofran Inj) 4 mg Q6H PRN IV NAUSEA AND/OR VOMITING Last administered on 06/08/16 06:14; Admin Dose 4 MG; Start 06/02/16 at 09:00 Enoxaparin Sodium (Lovenox) 40 mg DAILY SC Last administered on 06/10/16 09:11 ; Admin Dose 40 MG; Start 06/02/16 at 09:00 Diphenhydramine HCl (Benadryl) 25 mg Q6H PRN IV ALLERGIC REACTION; Start at 10:00 Nystatin (Nystatin Powder) 1 applic BID TOP Last administered on 06/10/16 09: 12; Admin Dose 1 APPLIC; Start 06/03/16 at 21:00 Clonidine 0.1 mg 0.1 mg Q6H PRN PO SBP>160 Last administered on 06/09/16 20:41 ; Admin Dose 0.1 MG; Start 06/03/16 at 14:30 Ertapenem/Sodium Chloride (Invanz/NS) 100 ml @ 200 mls/hr Q24H IVPB Last administered on 06/09/16 16:44; Admin Dose 200 MLS/HR; Start 06/04/16 at 16:00; Stop 06/14/16 at 20:00 IV Flush (NS 10 ml) 10 ml PRN PRN IV IV PROTOCOL; Start 06/04/16 at 19:00 Hydromorphone HCl (Dilaudid) 1 mg Q2H PRN IV PAIN Last administered on t 11:28; Admin Dose 1 MG; Start 06/06/16 at 11:00 PAT RODRIGUEZ NP Jun 10, 2016 12:54
[2016-06-10 13:22] LABS: ICTOTEST NEGATIVE (NEGATIVE)
[2016-06-10 13:24] LABS: BACTERIA,URINE OCCASIONAL
[2016-06-10] MEDS ORDERED: ALTEPLASE (CATHFLO) 2 MG INJ CATHETER PRN (15:30)
--- NOTE | 2016-06-10 16:00 | PN ---
Date/Time of Note Date/Time of Note DATE: 06/10/16 TIME: 15:58 Assessment/Plan VTE Prophylaxis VTE Prophylaxis Intervention: LMWH Lines/Catheters IV Catheter Type (from Nrsg): PICC Line Central line still needed: Yes Urinary Cath still in place: No Assessment/Plan Assessment/Plan 1. UTI, invanz for 7 days 2. Headache, unlikely shunt dysfunction, pain management 3. History of spina bifida with quadriplegia 4. History of hydrocephalus status post V-P shunt with multiple revisions 5. Chronic pain syndrome. 6. Chronic right lower extremity wound. DVT prophylaxis: lovenox Subjective 24 Hr Interval Summary Free Text/Dictation no fever, no event Exam/Review of Systems Vital Signs Vitals Vital Signs Date Time Temp Pulse Resp B/P Pulse Ox O2 Delivery O2 Flow Rate FiO2 06/10/16 08:00 Nasal Cannula 2.0 06/10/16 07:59 98.0 82 19 136/83 100 Intake and Output 06/09/16 06/09/16 06/10/16 15:00 23:00 07:00 Intake Total 680 ml 200 ml Balance 680 ml 200 ml Exam Constitutional: alert, oriented, well developed Psych: nl mood/affect, no complaints Head: atraumatic, normocephalic Eyes: EOMI, PERRL, nl conjunctiva, nl lids ENMT: nl external ears & nose, nl lips & teeth, nl nasal mucosa & septum Neck: non-tender, supple Respiratory: clear to auscultation, normal air movement, No congested cough, No crackles/rales, No diminished breath sounds, No intercostal retraction, No labored breathing, No other, No respirations, No tactile fremitus, No wheezing Cardiovascular: nl pulses, regular rate and rhythm, No S3, No S4, No bruits, No diastolic murmur, No edema, No gallop, No irregular rhythm, No jugular venous distention (JVD), No murmurs/extra sounds, No other, No rub, No systolic murmur Gastrointestinal: nl liver, spleen, non-tender, soft, No ascites, No bowel sounds, No distended, No firm, No hepatomegaly, No mass , No other, No rebound or guarding, No splenomegaly, No surgical scars, No tender Musculoskeletal: nl extremities to inspection Extremities: normal pulses, No calf tenderness, No clubbing, No cyanosis, No edema, No other, No palpable cord, No pitting pedal edema, No tenderness Neurological: FUR BLOWING MACHINE ATTENDANT II-XII intact, nl mental status, nl speech, nl strength Skin: nl turgor Lymph: nl lymph nodes Results Result Diagram: 06/10/16 0230 06/10/16 0230 Results 24 hrs Laboratory Tests Test 06/10/16 01:58 06/10/16 02:30 06/10/16 03:30 Bedside Glucose 130 Alanine Aminotransferase (ALT/SGPT) 54 Albumin 3.7 Albumin/Globulin Ratio 0.94 Alkaline Phosphatase 171 H Anion Gap 18 H Aspartate Amino Transf (AST/SGOT) 29 Basophils # 0.0 Basophils % 0.2 Blood Urea Nitrogen 18 Calcium Level 9.3 Carbon Dioxide Level 31 Chloride Level 102 Creatinine 0.50 L Direct Bilirubin 0.00 Eosinophils # 0.2 Eosinophils % 1.6 Globulin 3.90 H Glucose Level 133 Hematocrit 39.4 L Hemoglobin 12.0 L Indirect Bilirubin 0.3 Lymphocytes # 3.2 H Lymphocytes % 26.5 Mean Corpuscular Hemoglobin 26.7 L Mean Corpuscular Hemoglobin Concent 30.5 L Mean Corpuscular Volume 87.6 Mean Platelet Volume 9.4 Monocytes # 0.9 Monocytes % 7.7 Neutrophils # 7.7 H Neutrophils % 63.7 Nucleated Red Blood Cells # 0.0 Nucleated Red Blood Cells % 0.0 Platelet Count 355 Potassium Level 3.3 L Red Blood Count 4.50 L Red Cell Distribution Width 14.1 Sodium Level 148 H Thyroid Stimulating Hormone (TSH) 0.659 Total Bilirubin 0.3 Total Protein 7.6 White Blood Count 12.2 #H Urine Bacteria OCCASIONAL Urine Bilirubin 1+ H Urine Clarity SLIGHTLY CLOUDY Urine Color YELLOW Urine Glucose NEGATIVE Urine Hemoglobin 1+ H Urine Ictotest NEGATIVE Urine Ketones NEGATIVE Urine Leukocyte Esterase TRACE H Urine Microscopic RBC 5-10 Urine Microscopic WBC 2-5 Urine Nitrite NEGATIVE Urine Specific [place] 1.020 Urine Total Protein 1+ H Urine Urobilinogen 0.2 E.U./dL Urine pH 6.0 Medications Medications Current Medications Ondansetron HCl (Zofran Inj) 4 mg Q6H PRN IV NAUSEA AND/OR VOMITING Last administered on 06/08/16t 06:14; Admin Dose 4 MG; Start 06/02/16 at 09:00 Enoxaparin Sodium (Lovenox) 40 mg DAILY SC Last administered on 06/10/16 09:11 ; Admin Dose 40 MG; Start 06/02/16 at 09:00 Diphenhydramine HCl (Benadryl) 25 mg Q6H PRN IV ALLERGIC REACTION; Start at 10:00 Nystatin (Nystatin Powder) 1 applic BID TOP Last administered on 06/10/16 09: 12; Admin Dose 1 APPLIC; Start 06/03/16 at 21:00 Clonidine 0.1 mg 0.1 mg Q6H PRN PO SBP>160 Last administered on 06/09/16 20:41 ; Admin Dose 0.1 MG; Start 06/03/16 at 14:30 Ertapenem/Sodium Chloride (Invanz/NS) 100 ml @ 200 mls/hr Q24H IVPB Last administered on 06/09/16 16:44; Admin Dose 200 MLS/HR; Start 06/04/16 at 16:00; Stop 06/14/16 at 20:00 IV Flush (NS 10 ml) 10 ml PRN PRN IV IV PROTOCOL; Start 06/04/16 at 19:00 Hydromorphone HCl (Dilaudid) 1 mg Q2H PRN IV PAIN Last administered on 14:41; Admin Dose 1 MG; Start 06/06/16 at 11:00 Alteplase, Recombinant (Cathflo (Activase)) 4 mg ONCE PRN CATHETER IF CATHETER REMAINS OCCULUDED; Start 06/10/16 at 15:30; Stop 06/10/16 at 23:59 ZI ROTHMAN MD Jun 10, 2016 16:00
[2016-06-10] MEDS: ERTAPENEM SODIUM 1 GM in SOD CHLORIDE 0.9% 100 ML IVPB SCH (16:12)
[2016-06-10] MEDS: ONDANSETRON 4 MG INJ IV PRN (17:18)
[2016-06-10 19:40] VITALS: BP 166/96; RESP 20
[2016-06-10 20:30] VITALS: BP 160/88; PULSE 86
[2016-06-10 21:30] VITALS: BP 155/82
[2016-06-11] VITALS (15 sets, daily range): BP systolic 117–172; BP diastolic 64–121; PULSE 54–112; RESP 12–17
[2016-06-11] MEDS: ENOXAPARIN 40 MG/0.4 ML SYG SC SCH (08:20)
[2016-06-11] MEDS: HYDROmorphONE 1 MG/ML SYG IV PRN ×4 (08:21→20:47)
[2016-06-11] MEDS: NYSTATIN 30 GM POWDER BTL TOP SCH ×2 (08:29→22:28)
--- NOTE | 2016-06-11 12:48 | RADRPT ---
PROCEDURE: CT Brain without contrast. CLINICAL INDICATION: Headache, prior history of craniotomy. TECHNIQUE: A CT of the brain was performed on a high-resolution general iMusicapeFace-Me CT s canner utilizing a low dose technique with axial imaging from the skull base through the vertex with out IV contrast. Multiplanar reformatted images were made. Images were reviewed on a PACS workstat ion. The CTDIvol is 45 mGy and the DLP is 720 mGycm. One or more of the following dose reduction techniques were used: - Automated exposure control. - Adjustment of the mA and/or kV according to patient size. Use of iterative reconstruction technique. COMPARISON: CT scan brain June 02, 2016. FINDINGS: The fourth ventricle is small. The third and lateral ventricles are dilated. There is low attenuat ion in the periventricular white matter tracts adjacent to the atria and occipital horns of the late ral ventricles. There is a tiny septation adjacent to the ventriculostomy shunt in the right latera l ventricle. There is abnormal low attenuation adjacent to the ventricular shunt entering through a lindsay hole in the right parietal bone. The tip of this catheter rests in the medial central portion of the body of the right lateral ventricle. It is unchanged. There is low attenuation adjacent to the frontal horns of the lateral ventricles consistent with transependymal edema. There is scallopin g of the petrous pyramids. There is enlargement of the foramen magnum. There is beaking of the avelino kadeem. There is fenestration of the falx cerebral right. There is a 2.1 cm retention cyst in the left maxillary sinus. Remaining portions of the paranasal si nuses and mastoid air cells are clear. There is an old craniotomy site in the dorsal right parietal bone. Imbedded screws are noted adjacent to the site. IMPRESSION: 1. Interval development of noncommunicating hydrocephalus with progressive dilatation of the third and lateral ventricles as compared to 06/02/2016. Transependymal edema with low attenuation in the periventricular white matter tracts adjacent to the lateral ventricles. 2. No change in the position of the ventriculostomy tube entering to the lindsay hole in the right fro ntal bone with its tip in the medial ventral third of the body of the right lateral ventricle. 3. 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 RPTAT:AAJJ RPTAT:AAJJ Lance Reagan, Physician Date Time Electronically viewed and signed by Lance Reagan, Physician on 06/11/2016 12:48 EDITH/
--- NOTE | 2016-06-11 14:11 | PN ---
Date/Time of Note Date/Time of Note DATE: 06/11/16 TIME: 14:05 Assessment/Plan VTE Prophylaxis VTE Prophylaxis Intervention: LMWH Lines/Catheters IV Catheter Type (from Nrsg): PICC Line Central line still needed: Yes Urinary Cath still in place: No Assessment/Plan Assessment/Plan 1. AMS with more ventricle dilatation on CT head, Dr. Bernal to check the INTERIM CONTROLLER shunts, talked to the parents 2. UTI, invanz 3. History of spina bifida with quadriplegia 4. History of hydrocephalus status post V-P shunt with multiple revisions 5. Chronic pain syndrome. 6. Chronic right lower extremity wound. DVT prophylaxis: lovenox Subjective 24 Hr Interval Summary Free Text/Dictation confused today Exam/Review of Systems Vital Signs Vitals Vital Signs Date Time Temp Pulse Resp B/P Pulse Ox O2 Delivery O2 Flow Rate FiO2 06/11/16 13:14 Nasal Cannula 2.0 06/11/16 11:31 98.5 112 16 149/86 98 Intake and Output 06/10/16 06/10/16 06/11/16 15:00 23:00 07:00 Intake Total 100 ml 100 ml Balance 100 ml 100 ml Exam Constitutional: alert, other (confused), well developed Head: atraumatic, normocephalic Eyes: EOMI, nl conjunctiva, nl sclera ENMT: nl external ears & nose, nl lips & teeth, nl nasal mucosa & septum Neck: non-tender, supple Respiratory: clear to auscultation, normal air movement, No congested cough, No crackles/rales, No diminished breath sounds, No intercostal retraction, No labored breathing, No other, No respirations, No tactile fremitus, No wheezing Cardiovascular: nl pulses, regular rate and rhythm, No S3, No S4, No bruits, No diastolic murmur, No edema, No gallop, No irregular rhythm, No jugular venous distention (JVD), No murmurs/extra sounds, No other, No rub, No systolic murmur Gastrointestinal: nl liver, spleen, non-tender, soft, No ascites, No bowel sounds, No distended, No firm, No hepatomegaly, No mass , No other, No rebound or guarding, No splenomegaly, No surgical scars, No tender Musculoskeletal: nl extremities to inspection Extremities: normal pulses, No calf tenderness, No clubbing, No cyanosis, No edema, No other, No palpable cord, No pitting pedal edema, No tenderness Neurological: SALES LEDGER ADMINISTRATOR II-XII intact, confused, lethargic Skin: nl turgor Lymph: nl lymph nodes Results Result Diagram: 06/10/16 0230 06/10/16 0230 Medications Medications Current Medications Ondansetron HCl (Zofran Inj) 4 mg Q6H PRN IV NAUSEA AND/OR VOMITING Last administered on 06/10/16 17:18; Admin Dose 4 MG; Start 06/02/16 at 09:00 Enoxaparin Sodium (Lovenox) 40 mg DAILY SC Last administered on 06/11/16 08:20 ; Admin Dose 40 MG; Start 06/02/16 at 09:00 Diphenhydramine HCl (Benadryl) 25 mg Q6H PRN IV ALLERGIC REACTION; Start at 10:00 Nystatin (Nystatin Powder) 1 applic BID TOP Last administered on 06/11/16 08: 29; Admin Dose 1 APPLIC; Start 06/03/16 at 21:00 Clonidine 0.1 mg 0.1 mg Q6H PRN PO SBP>160 Last administered on 06/10/16 18:02 ; Admin Dose 0.1 MG; Start 06/03/16 at 14:30 Ertapenem/Sodium Chloride (Invanz/NS) 100 ml @ 200 mls/hr Q24H IVPB Last administered on 06/10/16 16:12; Admin Dose 200 MLS/HR; Start 06/04/16 at 16:00; Stop 06/14/16 at 20:00 IV Flush (NS 10 ml) 10 ml PRN PRN IV IV PROTOCOL; Start 06/04/16 at 19:00 Hydromorphone HCl (Dilaudid) 1 mg Q2H PRN IV PAIN Last administered on 12:50; Admin Dose 1 MG; Start 06/06/16 at 11:00 ZI ROTHMAN MD Jun 11, 2016 14:11
--- NOTE | 2016-06-11 16:09 | CONS ---
Date/Time of Note Date/Time of Note DATE: 06/11/16 TIME: 16:07 Assessment/Plan Assessment/Plan Chief Complaint/Hosp Course SUBJECTIVE: Lethargic, s/p Dilaudid earlier, s/p CT head done. No fevers. NAD INDWELLINGS: PICC line. 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 PHYSICAL EXAMINATION: GENERAL: Chronically ill-appearing, young man who is in no distress. HEENT: Head atraumatic, normocephalic. Sclerae anicteric. Buccal mucosa dry. NECK: Obese. CHEST: Rise symmetrical. Breath sounds clear, diminished to bases. HEART: S1, S2. ABDOMEN: Soft. Bowel tones present. EXTREMITIES: Without cyanosis. Bilateral edema. Bilateral chronic pressure sores. ASSESSMENT: 1. Recurrent urinary tract infection==> Kleb ESBL. 2. History of spina bifida. 3. History of hydrocephalus, status post CLINICAL ENGINEERING MANAGER shunt placement. 4. Morbid obesity. 5. Acute encephalopathy ?VPS problem PLAN: Continue present care, abx till 06/14, CT scan noted==> pending NS eval ? tx to ICU DW staff DW staff Problems: Consultation Date/Type/Reason Admit Date/Time Jun 02, 2016 at 08:09 Type of Consultation: id Exam/Review of Systems Vital Signs Vitals Vital Signs Date Time Temp Pulse Resp B/P Pulse Ox O2 Delivery O2 Flow Rate FiO2 06/11/16 13:14 Nasal Cannula 2.0 06/11/16 11:31 98.5 112 16 149/86 98 Intake and Output 06/10/16 06/10/16 06/11/16 15:00 23:00 07:00 Intake Total 100 ml 100 ml Balance 100 ml 100 ml Results Result Diagram: 06/10/16 0230 06/10/16 0230 Medications Medications Current Medications Ondansetron HCl (Zofran Inj) 4 mg Q6H PRN IV NAUSEA AND/OR VOMITING Last administered on 06/10/16 17:18; Admin Dose 4 MG; Start 06/02/16 at 09:00 Enoxaparin Sodium (Lovenox) 40 mg DAILY SC Last administered on 06/11/16 08:20 ; Admin Dose 40 MG; Start 06/02/16 at 09:00 Diphenhydramine HCl (Benadryl) 25 mg Q6H PRN IV ALLERGIC REACTION; Start at 10:00 Nystatin (Nystatin Powder) 1 applic BID TOP Last administered on 06/11/16 08: 29; Admin Dose 1 APPLIC; Start 06/03/16 at 21:00 Clonidine 0.1 mg 0.1 mg Q6H PRN PO SBP>160 Last administered on 06/10/16 18:02 ; Admin Dose 0.1 MG; Start 06/03/16 at 14:30 Ertapenem/Sodium Chloride (Invanz/NS) 100 ml @ 200 mls/hr Q24H IVPB Last administered on 06/10/16 16:12; Admin Dose 200 MLS/HR; Start 06/04/16 at 16:00; Stop 06/14/16 at 20:00 IV Flush (NS 10 ml) 10 ml PRN PRN IV IV PROTOCOL; Start 06/04/16 at 19:00 Hydromorphone HCl (Dilaudid) 1 mg Q2H PRN IV PAIN Last administered on 14:48; Admin Dose 1 MG; Start 06/06/16 at 11:00 PAT RODRIGUEZ NP Jun 11, 2016 16:09
[2016-06-11] MEDS: ERTAPENEM SODIUM 1 GM in SOD CHLORIDE 0.9% 100 ML IVPB SCH (16:37)
[2016-06-11] MEDS ORDERED: LIDOCAINE 1%/EPI 30 ML INJ ONE (17:09)
[2016-06-11] MEDS ORDERED: POLYMYXIN/BACITRACIN 1L IRRIG ONE (17:09)
[2016-06-11] MEDS ORDERED: THROMBIN 5000 UNIT VIAL ONE ×2 (17:11→17:30)
[2016-06-11] MEDS ORDERED: GELATIN SIZE 100 SPONGE ONE (17:30)
[2016-06-11] MEDS ORDERED: MIDAZOLAM 1 MG/ML 2 ML INJ ONE (17:50)
--- NOTE | 2016-06-11 18:13 | CONS ---
Date/Time of Note Date/Time of Note DATE: 06/11/16 TIME: 18:12 Assessment/Plan Assessment/Plan Additional Assessment/Plan ams with noted hydrocephalus when compared to previous CT brain secondary to vps malfunction Plan STAT to OR for left Ventriculostomy placement, possible externalization of vps emergency procedure to OR icu post op Consultation Date/Type/Reason Admit Date/Time Jun 02, 2016 at 08:09 Hx of Present Illness 26 y/o male with history of cerebral palsy with history of multiple vps revision with Dr. Triplett at [facility] and transferred to [facility] due to possible revision that [facility] was unable to perform. Pt did well following revision with Dr. Bernal and presents back to [facility] on this admission with AMS possibly due to vps malfunction vs noted UTI. CT brain noted to have significant hydrocephalus when compared to previous study. Pt was on M/S unit and recently transferred to ICU due to worsening mental status. pmh/psx: per hpi/chart meds: see med recon ros: per hpi/chart [place] [id number] Radiology Main Line: [phone] DIAGNOSTIC IMAGING REPORT Patient: RUTH REDD : 1990 Age: 26 Sex: M MR #: [id number] DOS: 06/11/16 1122 Ordering MD: ZI ROTHMAN MD Location: [facility] Room/Bed: [facility] PROCEDURE: CT Brain without contrast. CLINICAL INDICATION: Headache, prior history of craniotomy. TECHNIQUE: A CT of the brain was performed on a high-resolution general Fatwirepeed CT scanner utilizing a low dose technique with axial imaging from the skull base through the vertex without IV contrast. Multiplanar reformatted images were made. Images were reviewed on a PACS workstation. The CTDIvol is 45 mGy and the DLP is 720 mGycm. One or more of the following dose reduction techniques were used: - Automated exposure control. - Adjustment of the mA and/or kV according to patient size. Use of iterative reconstruction technique. COMPARISON: CT scan brain June 02, 2016. FINDINGS: The fourth ventricle is small. The third and lateral ventricles are dilated. There is low attenuation in the periventricular white matter tracts adjacent to the atria and occipital horns of the lateral ventricles. There is a tiny septation adjacent to the ventriculostomy shunt in the right lateral ventricle. There is abnormal low attenuation adjacent to the ventricular shunt entering through a lindsay hole in the right parietal bone. The tip of this catheter rests in the medial central portion of the body of the right lateral ventricle. It is unchanged. There is low attenuation adjacent to the frontal horns of the lateral ventricles consistent with transependymal edema. There is scalloping of the petrous pyramids. There is enlargement of the foramen magnum. There is beaking of the tectum. There is fenestration of the falx cerebral right. There is a 2.1 cm retention cyst in the left maxillary sinus. Remaining portions of the paranasal sinuses and mastoid air cells are clear. There is an old craniotomy site in the dorsal right parietal bone. Imbedded screws are noted adjacent to the site. IMPRESSION: 1. Interval development of noncommunicating hydrocephalus with progressive dilatation of the third and lateral ventricles as compared to 06/02/2016. Transependymal edema with low attenuation in the periventricular white matter tracts adjacent to the lateral ventricles. 2. No change in the position of the ventriculostomy tube entering to the lindsay hole in the right frontal bone with its tip in the medial ventral third of the body of the right lateral ventricle. 3. 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 non verbal at this time CN : perrl M ;moving ext x 4 ) Results Result Diagram: 06/10/16 0230 06/10/16 0230 Medications Medications Current Medications Ondansetron HCl (Zofran Inj) 4 mg Q6H PRN IV NAUSEA AND/OR VOMITING Last administered on 06/10/16 17:18; Admin Dose 4 MG; Start 06/02/16 at 09:00 Enoxaparin Sodium (Lovenox) 40 mg DAILY SC Last administered on 06/11/16 08:20 ; Admin Dose 40 MG; Start 06/02/16 at 09:00 Diphenhydramine HCl (Benadryl) 25 mg Q6H PRN IV ALLERGIC REACTION; Start at 10:00 Nystatin (Nystatin Powder) 1 applic BID TOP Last administered on 06/11/16 08: 29; Admin Dose 1 APPLIC; Start 06/03/16 at 21:00 Clonidine 0.1 mg 0.1 mg Q6H PRN PO SBP>160 Last administered on 06/10/16 18:02 ; Admin Dose 0.1 MG; Start 06/03/16 at 14:30 Ertapenem/Sodium Chloride (Invanz/NS) 100 ml @ 200 mls/hr Q24H IVPB Last administered on 06/11/16 16:37; Admin Dose 200 MLS/HR; Start 06/04/16 at 16:00; Stop 06/14/16 at 20:00 IV Flush (NS 10 ml) 10 ml PRN PRN IV IV PROTOCOL; Start 06/04/16 at 19:00 Hydromorphone HCl (Dilaudid) 1 mg Q2H PRN IV PAIN Last administered on 14:48; Admin Dose 1 MG; Start 06/06/16 at 11:00 ALEX MOTA NP Jun 11, 2016 18:13
[2016-06-11] MEDS ORDERED: DIPHENHYDRAMINE 50 MG INJ IV PRN (19:00)
[2016-06-11] MEDS ORDERED: FENTAnyl 50 MCG/ML VIAL IV PRN (19:00)
[2016-06-11] MEDS ORDERED: ONDANSETRON 4 MG INJ IV PRN (19:00)
[2016-06-11] MEDS ORDERED: PROPOFOL 20 ML ONE (19:01)
[2016-06-11] MEDS ORDERED: ROCURONIUM 50 MG INJ ONE (19:01)
[2016-06-11] MEDS ORDERED: LIDOCAINE 2% (SDV) 5 ML INJ ONE (19:01)
[2016-06-11] MEDS ORDERED: NEOSTIGMINE 3 MG/3 ML SYRINGE ONE (19:01)
[2016-06-11] MEDS ORDERED: GLYCOPYRROLATE 1 MG INJ ONE (19:01)
[2016-06-11 19:25] LABS: # OF CELLS COUNTED 100
[2016-06-11 19:54] LABS: GLUCOSE,CSF 67 mg/dl (50-80)
[2016-06-11 20:00] LABS: %CREANATED RBC CSF 0 %; CSF COLOR COLORLESS; CSF#TUBE COUNT TUBE#1; CSF#TUBES REC'D 1
[2016-06-12] VITALS (29 sets, daily range): BP systolic 104–162; BP diastolic 59–111; PULSE 58–119; RESP 12–19
[2016-06-12] MEDS: HYDROmorphONE 1 MG/ML SYG IV PRN ×9 (00:15→23:05)
--- NOTE | 2016-06-12 00:29 | RADRPT ---
PROCEDURE: CT brain without contrast CLINICAL INDICATION: Postoperative evaluation for ventriculostomy placement TECHNIQUE: A CT of the brain was performed utilizing axial sections from the skull base through th e vertex without contrast. Sagittal and coronal images were also reformatted. The exam CTDIvol = 40. 50 mGy and DLP = 864.93 mGy-cm. COMPARISON: 06/11/2016 at 12:02 p.m. FINDINGS: Recent postoperative changes from a left posterior parietal approach with placement of a new ventric ulostomy catheter the distal tip pointing medially in the region of the posterior body left lateral ventricle. Small amount of pneumocephalus in the left parietal lobe parenchyma around the new shunt is consistent with recent surgery. Previously seen right-sided parietal convexity approach ventricul ostomy catheter remains in satisfactory position the tip pointing medially along the septum post in the anterior body of the right lateral ventricle. The ventriculomegaly and temporal horn dilatation with communicating hydrocephalus pattern is unchan ged, the third ventricle remains rectangular diffuse low attenuation of the periventricular white ma tter is again noted possibly transependymal flow of CSF. The low attenuation likely edema related t o the right sided shunt is again seen in the right parietal lobe. Diffuse effacement of the cerebra l sulci is unchanged unable to exclude increased intracranial pressure. There is no evidence of hem orrhage or acute ischemic infarct. 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 Chronic-appearing left greater than right maxillary sinus disease is again seen RPTAT:HJJR IMPRESSION: 1. Successful interval placement of a new left-sided ventriculostomy from a left posterior parietal approach the distal tip of the shunt in the left lateral ventricle with a small amount of benign pn eumocephalus along the course of the left sided shunt catheter. 2. Right parietal approach ventriculostomy remains unchanged in satisfactory position. 3. Hydrocephalous pattern and low attenuation of the adjacent white matter suggestive of transepend ymal CSF flow is stable compared to the exam from earlier the same day with no change in diffuse cer ebral sulcal effacement. Physician Anai Date Time Electronically viewed and signed by Physician Anai on 06/12/2016 00:28 /
[2016-06-12] MEDS ORDERED: LORAZEPAM 2 MG INJ IV PRN (01:30)
[2016-06-12] MEDS ORDERED: LEVETIRACETAM IV 1,000 MG in DEXTROSE 5% 100 ML IVPB ONE (01:30)
[2016-06-12 06:12] LABS: ADD SCAN DIFF NO
[2016-06-12 06:28] LABS: BASOPHILS % 0.3 % (0.0-2.0); EOSINOPHILS # 0.3 10^3/ul (0.0-0.5); EOSINOPHILS % 2.9 % (0.0-7.0); HEMATOCRIT 37.8 % (42.0-52.0); HEMOGLOBIN 11.7 g/dl (14.0-18.0); LYMPHOCYTES % 26.9 % (15.0-51.0); MEAN CORPUSCULAR VOLUME 87.3 fl (82.0-101.0); MEAN PLATELET VOLUME 9.6 fl (7.4-10.4); MONOCYTE # 0.9 10^3/ul (0.3-0.9); NEUTROPHIL # 6.8 10^3/ul (1.6-7.5); NEUTROPHILS % 61.6 % (39.0-77.0); PLATELET COUNT 373 10^3/UL (140-415); RED BLOOD COUNT 4.33 10^6/ul (4.70-6.10); RED CELL DISTRIBUTION WIDTH 13.6 % (11.5-14.5)
[2016-06-12 06:31] LABS: POTASSIUM 3.6 mmol/L (3.5-5.1)
[2016-06-12 06:34] LABS: CREATININE 0.51 mg/dl (0.61-1.24)
[2016-06-12 06:35] LABS: CALCIUM 8.9 mg/dl (8.4-10.2)
[2016-06-12] MEDS: LEVETIRACETAM IV 1,000 MG in SOD CHLORIDE 0.9% 100 ML IVPB SCH ×2 (08:56→20:35)
[2016-06-12] MEDS: ENOXAPARIN 40 MG/0.4 ML SYG SC SCH (08:59)
[2016-06-12] MEDS: NYSTATIN 30 GM POWDER BTL TOP SCH ×2 (09:00→20:38)
--- NOTE | 2016-06-12 12:16 | CONS ---
Date/Time of Note Date/Time of Note DATE: 06/12/16 TIME: 12:14 Assessment/Plan Assessment/Plan Chief Complaint/Hosp Course SUBJECTIVE: No acute events, sleeping, no fevers, nad INDWELLINGS: PICC line. Ventriculostomy PHYSICAL EXAMINATION: GENERAL: Chronically ill-appearing, young man who is in no distress. HEENT: Head atraumatic, normocephalic. Sclerae anicteric. Buccal mucosa dry. NECK: Obese. CHEST: Rise symmetrical. Breath sounds clear, diminished to bases. HEART: S1, S2. ABDOMEN: Soft. Bowel tones present. EXTREMITIES: Without cyanosis. Bilateral edema. Bilateral chronic pressure sores. ASSESSMENT: 1. Recurrent urinary tract infection==> Kleb ESBL. 2. History of spina bifida. 3. 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 4. Morbid obesity. 5. Acute encephalopathy 2 to hydrocephalus,m s/p Ventriculostomy 06/12/16 PLAN: Clinically stable, continue abx for UTI, f/u NS rec-s, f/u CSF cx DW RN Problems: Consultation Date/Type/Reason Admit Date/Time Jun 02, 2016 at 08:09 Type of Consultation: id Exam/Review of Systems Vital Signs Vitals Vital Signs Date Time Temp Pulse Resp B/P Pulse Ox O2 Delivery O2 Flow Rate FiO2 06/12/16 10:00 97 15 119/72 100 Nasal Cannula 2.0 06/12/16 08:01 99.0 Intake and Output 06/11/16 06/11/16 06/12/16 15:00 23:00 07:00 Intake Total 550 ml Output Total 37 ml 84 ml Balance 513 ml -84 ml Results Result Diagram: 06/12/16 0600 06/12/16 0600 Results 24 hrs Laboratory Tests Test 06/11/16 18:45 06/12/16 06:00 CSF Appearance CLEAR CSF Cell Count Tube # TUBE#1 CSF Color COLORLESS CSF Crenated Cells 0 CSF Glucose 67 CSF Lymphocytes % CSF Monocytes % CSF Neutrophils % CSF RBC 0 CSF Total Cells Counted 100 CSF Total Protein 61 H CSF Tubes Submitted 1 CSF Volume 5.0 CSF WBC 0 Anion Gap 16 Basophils # 0.0 Basophils % 0.3 Blood Urea Nitrogen 15 Calcium Level 8.9 Carbon Dioxide Level 31 Chloride Level 105 Creatinine 0.51 L Eosinophils # 0.3 Eosinophils % 2.9 Glucose Level 97 Hematocrit 37.8 L Hemoglobin 11.7 L Lymphocytes # 3.0 H Lymphocytes % 26.9 Mean Corpuscular Hemoglobin 27.0 L Mean Corpuscular Hemoglobin Concent 31.0 L Mean Corpuscular Volume 87.3 Mean Platelet Volume 9.6 Monocytes # 0.9 Monocytes % 8.0 Neutrophils # 6.8 Neutrophils % 61.6 Nucleated Red Blood Cells # 0.0 Nucleated Red Blood Cells % 0.0 Platelet Count 373 Potassium Level 3.6 Red Blood Count 4.33 L Red Cell Distribution Width 13.6 Sodium Level 148 H White Blood Count 11.0 H Medications Medications Current Medications Ondansetron HCl (Zofran Inj) 4 mg Q6H PRN IV NAUSEA AND/OR VOMITING Last administered on 06/10/16 17:18; Admin Dose 4 MG; Start 06/02/16 at 09:00 Enoxaparin Sodium (Lovenox) 40 mg DAILY SC Last administered on 06/12/16 08:59 ; Admin Dose 40 MG; Start 06/02/16 at 09:00 Diphenhydramine HCl (Benadryl) 25 mg Q6H PRN IV ALLERGIC REACTION; Start at 10:00 Nystatin (Nystatin Powder) 1 applic BID TOP Last administered on 06/12/16 09: 00; Admin Dose 1 APPLIC; Start 06/03/16 at 21:00 Clonidine 0.1 mg 0.1 mg Q6H PRN PO SBP>160 Last administered on 06/10/16 18:02 ; Admin Dose 0.1 MG; Start 06/03/16 at 14:30 Ertapenem/Sodium Chloride (Invanz/NS) 100 ml @ 200 mls/hr Q24H IVPB Last administered on 06/11/16 16:37; Admin Dose 200 MLS/HR; Start 06/04/16 at 16:00; Stop 06/14/16 at 20:00 IV Flush (NS 10 ml) 10 ml PRN PRN IV IV PROTOCOL; Start 06/04/16 at 19:00 Hydromorphone HCl 1 mg 1 mg Q2H PRN IV PAIN Last administered on 06/12/16 11: 35; Admin Dose 1 MG; Start 06/06/16 at 11:00 Levetiracetam/ Sodium Chloride (Keppra Iv/NS) 110 ml @ 440 mls/hr BID IVPB Last administered on 06/12/16t 08:56; Admin Dose 440 MLS/HR; Start 06/12/16 at 09:00 Lorazepam (Ativan) 1 mg Q8H PRN IV seizure; Start 06/12/16 at 01:30 PAT RODRIGUEZ NP Jun 12, 2016 12:16
--- NOTE | 2016-06-12 14:01 | CONS ---
Date/Time of Note Date/Time of Note DATE: 06/12/16 TIME: 13:56 Assessment/Plan Assessment/Plan Chief Complaint/Hosp Course 26 y/o male with history of cerebral palsy with history of multiple vps revision with Dr. Triplett at [facility] and transferred to [facility] due to possible revision that [facility] was unable to perform. Pt did well following revision with Dr. Bernal and presents back to [facility] on this admission with AMS possibly due to vps malfunction vs noted UTI. CT brain noted to have significant hydrocephalus when compared to previous study. Pt was on M/S unit and recently transferred to ICU due to worsening mental status. pmh/psx: per hpi/chart meds: see med recon ros: per hpi/chart Problems: Additional Assessment/Plan right vps unchanged s/p left ventric placement with significant improvement in mental status ct brain stable and improving hydrocephalus plan cont left Ventric/ EVD for now with current orders will likely need transfer to [facility] with Dr. Ballesteros for Endoscopic Coagulation of Choroid Plexus Consultation Date/Type/Reason Admit Date/Time Jun 02, 2016 at 08:09 Initial Consult Date Type of Consultation: id 24 HR Interval Summary Free Text/Dictation S: EVD draining well and icp stable pt sleepy but easily arousable and verbal today Exam/Review of Systems Vital Signs Vitals Vital Signs Date Time Temp Pulse Resp B/P Pulse Ox O2 Delivery O2 Flow Rate FiO2 06/12/16 12:00 99.7 97 15 127/71 97 Nasal Cannula 2.0 Intake and Output 06/11/16 06/11/16 06/12/16 15:00 23:00 07:00 Intake Total 550 ml Output Total 37 ml 84 ml Balance 513 ml -84 ml Exam VSS ICP stable EVD draining well MS: Sleepy but easily arousable. Oriented x 2 , verbal CN: PERRL M: FC bilat UE, able to raise hands off bed to [place] [id number] Radiology Main Line: [phone] DIAGNOSTIC IMAGING REPORT Patient: RUTH REDD : 1990 Age: 26 Sex: M MR #: [id number] DOS: 06/11/16 0000 Ordering MD: ALEX MOTA JACQUARD FIXER Location: ICU Room/Bed: 110-A PROCEDURE: CT brain without contrast CLINICAL INDICATION: Postoperative evaluation for ventriculostomy placement TECHNIQUE: A CT of the brain was performed utilizing axial sections from the skull base through the vertex without contrast. Sagittal and coronal images were also reformatted. The exam CTDIvol = 40.50 mGy and DLP = 864.93 mGy-cm. COMPARISON: 06/11/2016 at 12:02 p.m. FINDINGS: Recent postoperative changes from a left posterior parietal approach with placement of a new ventriculostomy catheter the distal tip pointing medially in the region of the posterior body left lateral ventricle. Small amount of pneumocephalus in the left parietal lobe parenchyma around the new shunt is consistent with recent surgery. Previously seen right-sided parietal convexity approach ventriculostomy catheter remains in satisfactory position the tip pointing medially along the septum post in the anterior body of the right lateral ventricle. The ventriculomegaly and temporal horn dilatation with communicating hydrocephalus pattern is unchanged, the third ventricle remains rectangular diffuse low attenuation of the periventricular white matter is again noted possibly transependymal flow of CSF. The low attenuation likely edema related to the right sided shunt is again seen in the right parietal lobe. Diffuse effacement of the cerebral sulci is unchanged unable to exclude increased intracranial pressure. There is no evidence of hemorrhage or acute ischemic infarct. The fourth ventricle is small and midline with suggestion of cerebellar tonsillar ectopia again noted. Chronic-appearing left greater than right maxillary sinus disease is again seen RPTAT:HJJR IMPRESSION: 1. Successful interval placement of a new left-sided ventriculostomy from a left posterior parietal approach the distal tip of the shunt in the left lateral ventricle with a small amount of benign pneumocephalus along the course of the left sided shunt catheter. 2. Right parietal approach ventriculostomy remains unchanged in satisfactory position. 3. Hydrocephalous pattern and low attenuation of the adjacent white matter suggestive of transependymal CSF flow is stable compared to the exam from earlier the same day with no change in diffuse cerebral sulcal effacement. Results Result Diagram: 06/12/16 0600 06/12/16 0600 Results 24 hrs Laboratory Tests Test 06/11/16 18:45 3/15/17 06:00 CSF Appearance CLEAR CSF Cell Count Tube # TUBE#1 CSF Color COLORLESS CSF Crenated Cells 0 CSF Glucose 67 CSF Lymphocytes % CSF Monocytes % CSF Neutrophils % CSF RBC 0 CSF Total Cells Counted 100 CSF Total Protein 61 H CSF Tubes Submitted 1 CSF Volume 5.0 CSF WBC 0 Anion Gap 16 Basophils # 0.0 Basophils % 0.3 Blood Urea Nitrogen 15 Calcium Level 8.9 Carbon Dioxide Level 31 Chloride Level 105 Creatinine 0.51 L Eosinophils # 0.3 Eosinophils % 2.9 Glucose Level 97 Hematocrit 37.8 L Hemoglobin 11.7 L Lymphocytes # 3.0 H Lymphocytes % 26.9 Mean Corpuscular Hemoglobin 27.0 L Mean Corpuscular Hemoglobin Concent 31.0 L Mean Corpuscular Volume 87.3 Mean Platelet Volume 9.6 Monocytes # 0.9 Monocytes % 8.0 Neutrophils # 6.8 Neutrophils % 61.6 Nucleated Red Blood Cells # 0.0 Nucleated Red Blood Cells % 0.0 Platelet Count 373 Potassium Level 3.6 Red Blood Count 4.33 L Red Cell Distribution Width 13.6 Sodium Level 148 H White Blood Count 11.0 H Medications Medications Current Medications Ondansetron HCl (Zofran Inj) 4 mg Q6H PRN IV NAUSEA AND/OR VOMITING Last administered on 06/10/16 17:18; Admin Dose 4 MG; Start 06/02/16 at 09:00 Enoxaparin Sodium (Lovenox) 40 mg DAILY SC Last administered on 06/12/16 08:59 ; Admin Dose 40 MG; Start 06/02/16 at 09:00 Diphenhydramine HCl (Benadryl) 25 mg Q6H PRN IV ALLERGIC REACTION; Start at 10:00 Nystatin (Nystatin Powder) 1 applic BID TOP Last administered on 06/12/16 09: 00; Admin Dose 1 APPLIC; Start 06/03/16 at 21:00 Clonidine 0.1 mg 0.1 mg Q6H PRN PO SBP>160 Last administered on 06/10/16 18:02 ; Admin Dose 0.1 MG; Start 06/03/16 at 14:30 Ertapenem/Sodium Chloride (Invanz/NS) 100 ml @ 200 mls/hr Q24H IVPB Last administered on 06/11/16 16:37; Admin Dose 200 MLS/HR; Start 06/04/16 at 16:00; Stop 06/14/16 at 20:00 IV Flush (NS 10 ml) 10 ml PRN PRN IV IV PROTOCOL; Start 06/04/16 at 19:00 Hydromorphone HCl 1 mg 1 mg Q2H PRN IV PAIN Last administered on 06/12/16 11: 35; Admin Dose 1 MG; Start 06/06/16 at 11:00 Levetiracetam/ Sodium Chloride (Keppra Iv/NS) 110 ml @ 440 mls/hr BID IVPB Last administered on 06/12/16 08:56; Admin Dose 440 MLS/HR; Start 06/12/16 at 09:00 Lorazepam (Ativan) 1 mg Q8H PRN IV seizure; Start 06/12/16 at 01:30 ALEX MOTA NP Jun 12, 2016 14:01
--- NOTE | 2016-06-12 15:11 | PN ---
Date/Time of Note Date/Time of Note DATE: 06/12/16 TIME: 15:05 Assessment/Plan VTE Prophylaxis VTE Prophylaxis Intervention: LMWH Lines/Catheters IV Catheter Type (from [facility]): PICC Line Urinary Cath still in place: No Assessment/Plan Chief Complaint/Hosp Course Assessment and plan 1. Altered mental status secondary to hydrocephalus. Patient status post ventriculostomy placement. Continue with neurosurgeon recommendations. Plan for transfer to [facility] with Dr. Ballesteros for Endoscopic Coagulation of Choroid Plexus. 2. ESBL UTI. Continue on antibiotics per ID recommendations 3. History of spina bifida with quadriplegia. Continue positioning every 2 hours and as needed for pressure ulcer prevention 4. Chronic pain syndrome. continue with analgesics as needed DVT prophylaxis: Lovenox Disposition and plan: Continue ICU monitoring. Follow-up with neurosurgeon recommendations. Follow-up with case management for tertiary evaluation Discussed plan of care with Dr. Pavon Critical care time: 30 minutes Problems: Subjective 24 Hr Interval Summary Free Text/Dictation Lethargic during visit. No specific complaints Exam/Review of Systems Vital Signs Vitals Vital Signs Date Time Temp Pulse Resp B/P Pulse Ox O2 Delivery O2 Flow Rate FiO2 06/12/16 14:00 94 15 128/72 100 Nasal Cannula 2.0 06/12/16 12:00 99.7 Intake and Output 06/11/16 06/11/16 06/12/16 14:59 22:59 06:59 Intake Total 550 ml Output Total 35 ml 76 ml Balance 515 ml -76 ml Exam General: Awakens to verbal response. Somnolent Neck: Supple nontender, no JVD Cardiac: Regular rate at this time Pulmonary: [No coarse rhonchi or breathing auscultated] GI: [Abdomen soft nontender nondistended, bowel sounds active] Extremities: Some edema noted bilateral lower extremities with foot drop Neurologic: Noted with drain on left occipital area. Awakens to verbal response. lethargic during visit Results Result Diagram: 06/12/16 0600 06/12/16 0600 Results 24 hrs Laboratory Tests Test 06/11/16 18:45 06/12/16 06:00 CSF Appearance CLEAR CSF Cell Count Tube # TUBE#1 CSF Color COLORLESS CSF Crenated Cells 0 CSF Glucose 67 CSF Lymphocytes % CSF Monocytes % CSF Neutrophils % CSF RBC 0 CSF Total Cells Counted 100 CSF Total Protein 61 H CSF Tubes Submitted 1 CSF Volume 5.0 CSF WBC 0 Anion Gap 16 Basophils # 0.0 Basophils % 0.3 Blood Urea Nitrogen 15 Calcium Level 8.9 Carbon Dioxide Level 31 Chloride Level 105 Creatinine 0.51 L Eosinophils # 0.3 Eosinophils % 2.9 Glucose Level 97 Hematocrit 37.8 L Hemoglobin 11.7 L Lymphocytes # 3.0 H Lymphocytes % 26.9 Mean Corpuscular Hemoglobin 27.0 L Mean Corpuscular Hemoglobin Concent 31.0 L Mean Corpuscular Volume 87.3 Mean Platelet Volume 9.6 Monocytes # 0.9 Monocytes % 8.0 Neutrophils # 6.8 Neutrophils % 61.6 Nucleated Red Blood Cells # 0.0 Nucleated Red Blood Cells % 0.0 Platelet Count 373 Potassium Level 3.6 Red Blood Count 4.33 L Red Cell Distribution Width 13.6 Sodium Level 148 H White Blood Count 11.0 H Medications Medications Current Medications Ondansetron HCl (Zofran Inj) 4 mg Q6H PRN IV NAUSEA AND/OR VOMITING Last administered on 06/10/16 17:18; Admin Dose 4 MG; Start 06/02/16 at 09:00 Enoxaparin Sodium (Lovenox) 40 mg DAILY SC Last administered on 06/12/16 08:59 ; Admin Dose 40 MG; Start 06/02/16 at 09:00 Diphenhydramine HCl (Benadryl) 25 mg Q6H PRN IV ALLERGIC REACTION; Start at 10:00 Nystatin (Nystatin Powder) 1 applic BID TOP Last administered on 06/12/16 09: 00; Admin Dose 1 APPLIC; Start 06/03/16 at 21:00 Clonidine 0.1 mg 0.1 mg Q6H PRN PO SBP>160 Last administered on 06/10/16 18:02 ; Admin Dose 0.1 MG; Start 06/03/16 at 14:30 Ertapenem/Sodium Chloride (Invanz/NS) 100 ml @ 200 mls/hr Q24H IVPB Last administered on 06/11/16 16:37; Admin Dose 200 MLS/HR; Start 06/04/16 at 16:00; Stop 06/14/16 at 20:00 IV Flush (NS 10 ml) 10 ml PRN PRN IV IV PROTOCOL; Start 06/04/16 at 19:00 Hydromorphone HCl 1 mg 1 mg Q2H PRN IV PAIN Last administered on 06/12/16 14: 09; Admin Dose 1 MG; Start 06/06/16 at 11:00 Levetiracetam/ Sodium Chloride (Keppra Iv/NS) 110 ml @ 440 mls/hr BID IVPB Last administered on 06/12/16 08:56; Admin Dose 440 MLS/HR; Start 06/12/16 at 09:00 Lorazepam (Ativan) 1 mg Q8H PRN IV seizure; Start 06/12/16 at 01:30 GIOVANI TAVERAS Jun 12, 2016 15:11
[2016-06-12] MEDS: ERTAPENEM SODIUM 1 GM in SOD CHLORIDE 0.9% 100 ML IVPB SCH (16:00)
[2016-06-13] VITALS (24 sets, daily range): BP systolic 98–135; BP diastolic 48–75; PULSE 57–110; RESP 11–22
[2016-06-13] MEDS: HYDROmorphONE 1 MG/ML SYG IV PRN ×8 (04:54→23:47)
[2016-06-13 05:17] LABS: ADD SCAN DIFF NO
[2016-06-13 05:25] LABS: BASOPHILS % 0.3 % (0.0-2.0); EOSINOPHILS # 0.6 10^3/ul (0.0-0.5); EOSINOPHILS % 5.1 % (0.0-7.0); HEMATOCRIT 37.7 % (42.0-52.0); HEMOGLOBIN 11.4 g/dl (14.0-18.0); LYMPHOCYTES # 4.4 10^3/ul (0.8-2.9); MEAN CORPUSCULAR HEMOGLOBIN 26.3 pg (29.0-33.0); MEAN CORPUSCULAR HGB CONC 30.2 g/dl (32.0-37.0); MEAN CORPUSCULAR VOLUME 87.1 fl (82.0-101.0); MEAN PLATELET VOLUME 9.5 fl (7.4-10.4); MONOCYTE # 0.9 10^3/ul (0.3-0.9); MONOCYTES % 7.6 % (0.0-11.0); NEUTROPHIL # 5.4 10^3/ul (1.6-7.5); NEUTROPHILS % 47.8 % (39.0-77.0); PLATELET COUNT 331 10^3/UL (140-415); RED BLOOD COUNT 4.33 10^6/ul (4.70-6.10); RED CELL DISTRIBUTION WIDTH 13.8 % (11.5-14.5); WHITE BLOOD COUNT 11.2 10^3/ul (4.8-10.8)
[2016-06-13 05:52] LABS: POTASSIUM 3.5 mmol/L (3.5-5.1)
[2016-06-13 05:55] LABS: # OF CELLS COUNTED 100
[2016-06-13 05:55] LABS: CALCIUM 8.9 mg/dl (8.4-10.2); CREATININE 0.61 mg/dl (0.61-1.24)
[2016-06-13 06:42] LABS: GLUCOSE,CSF 56 mg/dl (50-80)
[2016-06-13 07:29] LABS: CSF COLOR COLORLESS
[2016-06-13 07:30] LABS: CSF#TUBES REC'D 4
[2016-06-13 07:31] LABS: CSF#TUBE COUNT TUBE#4
[2016-06-13] MEDS: ENOXAPARIN 40 MG/0.4 ML SYG SC SCH (08:46)
[2016-06-13] MEDS: NYSTATIN 30 GM POWDER BTL TOP SCH ×2 (09:16→20:44)
[2016-06-13] MEDS: LEVETIRACETAM IV 1,000 MG in SOD CHLORIDE 0.9% 100 ML IVPB SCH ×2 (09:16→20:43)
--- NOTE | 2016-06-13 11:51 | PN ---
Date/Time of Note Date/Time of Note DATE: 06/13/16 TIME: 11:48 Assessment/Plan VTE Prophylaxis VTE Prophylaxis Intervention: LMWH Lines/Catheters IV C[facility]ter Type (from [facility]): PICC Line Urinary Cath still in place: Yes Assessment/Plan Chief Complaint/Hosp Course Assessment and plan 1. Altered mental status secondary to hydrocephalus. Patient status post ventriculostomy placement. Continue with neurosurgeon recommendations. Plan for transfer to [facility] with Dr. Ballesteros for Endoscopic Coagulation of Choroid Plexus. Case management following. Awaiting placement. 2. ESBL UTI. Continue on antibiotics per ID recommendations. Antipyretics as needed. Stable at present 3. History of spina bifida with quadriplegia. Continue positioning every 2 hours and as needed for pressure ulcer prevention 4. Chronic pain syndrome. Continue with analgesics as needed DVT prophylaxis: Lovenox Disposition and plan: Tentative plan for transfer to [facility]. Case management is following. Will follow up. Discussed plan of care with Dr. Pavon Critical care time: 30 minutes Problems: Subjective 24 Hr Interval Summary Free Text/Dictation More alert and oriented at this time. Family at bedside. No apparent distress. Denies any headache. Exam/Review of Systems Vital Signs Vitals Vital Signs Date Time Temp Pulse Resp B/P Pulse Ox O2 Delivery O2 Flow Rate FiO2 06/13/16 11:00 67 16 104/57 99 Nasal Cannula 2.0 06/13/16 08:00 98.2 Intake and Output 06/12/16 06/12/16 06/13/16 15:00 23:00 07:00 Intake Total 820 ml 100 ml Output Total 486 ml 355 ml 330 ml Balance -486 ml 465 ml -230 ml Exam General: More awake today. No apparent distress noted. Neck: No JVD seen Cardiac: Remains regular rate. S1-S2 auscultated Pulmonary: No adventitious lung sounds GI: Soft nontender non- Extremities: Some edema noted bilateral lower extremities with foot drop still today Neurologic: Noted with drain on left occipital area. More conversive. Alert and oriented 3 Results Result Diagram: 06/13/16 0445 06/13/16 0445 Results 24 hrs Laboratory Tests Test 06/13/16 04:00 06/13/16 04:45 CSF Appearance CLEAR CSF Cell Count Tube # TUBE#4 CSF Color COLORLESS CSF Crenated Cells CSF Glucose 56 CSF Lymphocytes % 0 CSF Monocytes % 0 CSF Neutrophils % 100 CSF RBC 0 CSF Total Cells Counted 100 CSF Total Protein 58 CSF Tubes Submitted 4 CSF Volume 40.0 CSF WBC 1 Anion Gap 16 Basophils # 0.0 Basophils % 0.3 Blood Urea Nitrogen 17 Calcium Level 8.9 Carbon Dioxide Level 30 Chloride Level 104 Creatinine 0.61 Eosinophils # 0.6 H Eosinophils % 5.1 Glucose Level 85 Hematocrit 37.7 L Hemoglobin 11.4 L Lymphocytes # 4.4 H Lymphocytes % 39.0 Mean Corpuscular Hemoglobin 26.3 L Mean Corpuscular Hemoglobin Concent 30.2 L Mean Corpuscular Volume 87.1 Mean Platelet Volume 9.5 Monocytes # 0.9 Monocytes % 7.6 Neutrophils # 5.4 Neutrophils % 47.8 Nucleated Red Blood Cells # 0.0 Nucleated Red Blood Cells % 0.0 Platelet Count 331 Potassium Level 3.5 Red Blood Count 4.33 L Red Cell Distribution Width 13.8 Sodium Level 146 H White Blood Count 11.2 H Medications Medications Current Medications Ondansetron HCl (Zofran Inj) 4 mg Q6H PRN IV NAUSEA AND/OR VOMITING Last administered on 06/10/16 17:18; Admin Dose 4 MG; Start 06/02/16 at 09:00 Enoxaparin Sodium (Lovenox) 40 mg DAILY SC Last administered on 06/13/16 08:46 ; Admin Dose 40 MG; Start 06/02/16 at 09:00 Diphenhydramine HCl (Benadryl) 25 mg Q6H PRN IV ALLERGIC REACTION; Start at 10:00 Nystatin (Nystatin Powder) 1 applic BID TOP Last administered on 06/13/16 09: 16; Admin Dose 1 APPLIC; Start 06/03/16 at 21:00 Clonidine 0.1 mg 0.1 mg Q6H PRN PO SBP>160 Last administered on 06/10/16 18:02 ; Admin Dose 0.1 MG; Start 06/03/16 at 14:30 Ertapenem/Sodium Chloride (Invanz/NS) 100 ml @ 200 mls/hr Q24H IVPB Last administered on 06/12/16 16:00; Admin Dose 200 MLS/HR; Start 06/04/16 at 16:00; Stop 06/14/16 at 20:00 IV Flush (NS 10 ml) 10 ml PRN PRN IV IV PROTOCOL; Start 06/04/16 at 19:00 Hydromorphone HCl 1 mg 1 mg Q2H PRN IV PAIN Last administered on 06/13/16 11: 20; Admin Dose 1 MG; Start 06/06/16 at 11:00 Levetiracetam/ Sodium Chloride (Keppra Iv/NS) 110 ml @ 440 mls/hr BID IVPB Last administered on 06/13/16 09:16; Admin Dose 440 MLS/HR; Start 06/12/16 at 09:00 Lorazepam (Ativan) 1 mg Q8H PRN IV seizure; Start 06/12/16 at 01:30 GIOVANI TAVERAS Jun 13, 2016 11:50
--- NOTE | 2016-06-13 14:15 | CONS ---
Date/Time of Note Date/Time of Note DATE: 06/13/16 TIME: 14:14 Assessment/Plan Assessment/Plan Chief Complaint/Hosp Course SUBJECTIVE: No acute events, no fevers, awake, looks comfortable INDWELLINGS: PICC line. Ventriculostomy PHYSICAL EXAMINATION: GENERAL: Chronically ill-appearing, young man who is in no distress. HEENT: Head atraumatic, normocephalic. Sclerae anicteric. Buccal mucosa dry. NECK: Obese. CHEST: Rise symmetrical. Breath sounds clear, diminished to bases. HEART: S1, S2. ABDOMEN: Soft. Bowel tones present. EXTREMITIES: Without cyanosis. Bilateral edema. Bilateral chronic pressure sores. ASSESSMENT: 1. Recurrent urinary tract infection==> Kleb ESBL. 2. History of spina bifida. 3. History of hydrocephalus, status post RATCHET SETTER shunt placement. 4. Morbid obesity. 5. Acute encephalopathy 2 to hydrocephalus, s/p Ventriculostomy 06/12/16 PLAN: Clinical status improved, continue abx for UTI, f/u NS rec-s DW RN Problems: Consultation Date/Type/Reason Admit Date/Time Jun 02, 2016 at 08:09 Type of Consultation: id Exam/Review of Systems Vital Signs Vitals Vital Signs Date Time Temp Pulse Resp B/P Pulse Ox O2 Delivery O2 Flow Rate FiO2 06/13/16 12:00 110 06/13/16 12:00 99.8 11 118/57 99 Nasal Cannula 2.0 Intake and Output 06/12/16 06/12/16 06/13/16 15:00 23:00 07:00 Intake Total 820 ml 100 ml Output Total 486 ml 355 ml 360 ml Balance -486 ml 465 ml -260 ml Results Result Diagram: 06/13/16 0445 06/13/16 0445 Results 24 hrs Laboratory Tests Test 06/13/16 04:00 06/13/16 04:45 CSF Appearance CLEAR CSF Cell Count Tube # TUBE#4 CSF Color COLORLESS CSF Crenated Cells CSF Glucose 56 CSF Lymphocytes % 0 CSF Monocytes % 0 CSF Neutrophils % 100 CSF RBC 0 CSF Total Cells Counted 100 CSF Total Protein 58 CSF Tubes Submitted 4 CSF Volume 40.0 CSF WBC 1 Anion Gap 16 Basophils # 0.0 Basophils % 0.3 Blood Urea Nitrogen 17 Calcium Level 8.9 Carbon Dioxide Level 30 Chloride Level 104 Creatinine 0.61 Eosinophils # 0.6 H Eosinophils % 5.1 Glucose Level 85 Hematocrit 37.7 L Hemoglobin 11.4 L Lymphocytes # 4.4 H Lymphocytes % 39.0 Mean Corpuscular Hemoglobin 26.3 L Mean Corpuscular Hemoglobin Concent 30.2 L Mean Corpuscular Volume 87.1 Mean Platelet Volume 9.5 Monocytes # 0.9 Monocytes % 7.6 Neutrophils # 5.4 Neutrophils % 47.8 Nucleated Red Blood Cells # 0.0 Nucleated Red Blood Cells % 0.0 Platelet Count 331 Potassium Level 3.5 Red Blood Count 4.33 L Red Cell Distribution Width 13.8 Sodium Level 146 H White Blood Count 11.2 H Medications Medications Current Medications Ondansetron HCl (Zofran Inj) 4 mg Q6H PRN IV NAUSEA AND/OR VOMITING Last administered on 06/10/16 17:18; Admin Dose 4 MG; Start 06/02/16 at 09:00 Enoxaparin Sodium (Lovenox) 40 mg DAILY SC Last administered on 06/13/16 08:46 ; Admin Dose 40 MG; Start 06/02/16 at 09:00 Diphenhydramine HCl (Benadryl) 25 mg Q6H PRN IV ALLERGIC REACTION; Start at 10:00 Nystatin (Nystatin Powder) 1 applic BID TOP Last administered on 06/13/16 09: 16; Admin Dose 1 APPLIC; Start 06/03/16 at 21:00 Clonidine 0.1 mg 0.1 mg Q6H PRN PO SBP>160 Last administered on 06/10/16 18:02 ; Admin Dose 0.1 MG; Start 06/03/16 at 14:30 Ertapenem/Sodium Chloride (Invanz/NS) 100 ml @ 200 mls/hr Q24H IVPB Last administered on 06/12/16 16:00; Admin Dose 200 MLS/HR; Start 06/04/16 at 16:00; Stop 06/14/16 at 20:00 IV Flush (NS 10 ml) 10 ml PRN PRN IV IV PROTOCOL; Start 06/04/16 at 19:00 Hydromorphone HCl 1 mg 1 mg Q2H PRN IV PAIN Last administered on 06/13/16 13: 23; Admin Dose 1 MG; Start 06/06/16 at 11:00 Levetiracetam/ Sodium Chloride (Keppra Iv/NS) 110 ml @ 440 mls/hr BID IVPB Last administered on 06/13/16t 09:16; Admin Dose 440 MLS/HR; Start 06/12/16 at 09:00 Lorazepam (Ativan) 1 mg Q8H PRN IV seizure; Start 06/12/16 at 01:30 PAT RODRIGUEZ NP Jun 13, 2016 14:15
[2016-06-13] MEDS: ERTAPENEM SODIUM 1 GM in SOD CHLORIDE 0.9% 100 ML IVPB SCH (16:43)
[2016-06-14] VITALS (24 sets, daily range): BP systolic 93–141; BP diastolic 50–85; PULSE 82–119; RESP 13–27
[2016-06-14] MEDS: SOD CHLORIDE 0.9% 1,000 ML IV SCH ×2 (01:28→13:17)
[2016-06-14] MEDS: HYDROmorphONE 1 MG/ML SYG IV PRN ×10 (03:27→23:58)
[2016-06-14 04:37] LABS: ADD SCAN DIFF NO
[2016-06-14 04:49] LABS: BASOPHILS % 0.2 % (0.0-2.0); EOSINOPHILS # 0.9 10^3/ul (0.0-0.5); EOSINOPHILS % 7.3 % (0.0-7.0); HEMATOCRIT 36.9 % (42.0-52.0); HEMOGLOBIN 11.2 g/dl (14.0-18.0); LYMPHOCYTES # 3.2 10^3/ul (0.8-2.9); MEAN CORPUSCULAR HEMOGLOBIN 26.7 pg (29.0-33.0); MEAN CORPUSCULAR HGB CONC 30.4 g/dl (32.0-37.0); MEAN CORPUSCULAR VOLUME 87.9 fl (82.0-101.0); MEAN PLATELET VOLUME 9.9 fl (7.4-10.4); MONOCYTES % 7.7 % (0.0-11.0); NEUTROPHIL # 7.7 10^3/ul (1.6-7.5); NEUTROPHILS % 59.5 % (39.0-77.0); PLATELET COUNT 315 10^3/UL (140-415); RED CELL DISTRIBUTION WIDTH 13.8 % (11.5-14.5); WHITE BLOOD COUNT 12.9 10^3/ul (4.8-10.8)
[2016-06-14 04:59] LABS: POTASSIUM 3.3 mmol/L (3.5-5.1)
[2016-06-14 05:01] LABS: CREATININE 0.5 mg/dl (0.61-1.24)
[2016-06-14 05:02] LABS: CALCIUM 8.7 mg/dl (8.4-10.2)
[2016-06-14 07:17] LABS: # OF CELLS COUNTED 100
[2016-06-14] MEDS: LEVETIRACETAM IV 1,000 MG in SOD CHLORIDE 0.9% 100 ML IVPB SCH ×2 (08:24→20:46)
[2016-06-14 08:25] LABS: CSF COLOR COLORLESS; CSF#TUBE COUNT TUBE#4; CSF#TUBES REC'D 4
[2016-06-14] MEDS: ENOXAPARIN 40 MG/0.4 ML SYG SC SCH (08:35)
[2016-06-14] MEDS: NYSTATIN 30 GM POWDER BTL TOP SCH ×2 (09:14→20:46)
[2016-06-14 09:15] LABS: GLUCOSE,CSF 58 mg/dl (50-80)
[2016-06-14] MEDS ORDERED: LEVE100018 PO (11:29)
--- NOTE | 2016-06-14 12:35 | PDOCDIS ---
Discharge Instructions DIAGNOSIS Discharge Diagnosis: 1. hydrocephalus. 2. hx spina bifida 3. hx chronic pain CONDITION Patient Condition: Stable HOME CARE INSTRUCTIONS: Special Diet: REGULAR OTHER ORDERS: Other Orders: 1. Further care and management per [facility] GIOVANI TAVERAS Jun 14, 2016 12:34
--- NOTE | 2016-06-14 14:20 | DS ---
DATE OF ADMISSION: 06/02/2016 DATE OF DISCHARGE: 06/14/2016 CONSULTANTS: 1. Dr. Carlos Galvan. 2. Dr. Madonna Bernal. DISCHARGE DIAGNOSES: 1. Altered mental status secondary to hydrocephalus. 2. Urinary tract infection with extended-spectrum beta-lactamase. 3. History of spina bifida with quadriplegia. 4. Chronic pain syndrome. HOSPITAL COURSE: This is a 26-year-old male with past medical history of spina bifida and debility as well as right lower extremity chronic wound and quadriplegia as a result of spina bifida, recurre nt UTI and also hydrocephalus status post LONG WALL SHEAR OPERATOR shunt with multiple revisions, who was seen at [facility]. He reports an altered level of consciousness. 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 Patient noted worse headaches as well. Patient was noted with headaches and also ALOC and was seen by neurosurgeon. Patient was noted with worsening hydrocephalus secondar y to LONG WALL SHEAR OPERATOR shunt malfunction. Patient was brought to the OR and did have a ventriculostomy placed. Mu ltidisciplinary team involved. After discussion with the neurosurgeon, the patient would likely nee d tissue evaluation for endoscopic coagulation of choroid plexus. Case management was involved with this and we were able to find accepting physician with Dr. Gage Samano at [facility]. During the course of his stay, he did improve. His mentation did improve status post ventriculosto my placement. He was otherwise optimized medically. He did have noted UTI again and we did see ESB L in the urine. He was seen by infectious disease physician and placed on appropriate antibiotics. We did continue supportive measures for assist with spina bifida and we did continue with analgesic s as needed for his chronic pain syndrome. During his course of his stay, he did improve. The plan of care was discussed with the patient and patient did verbalize his understanding. On the day of discharge, the patient was in stable condition. DISCHARGE PHYSICAL EXAMINATION: VITAL SIGNS: Stable. CONDITION: Stable. DISCHARGE PLAN: The patient to be discharged to [facility] under the care of Dr. Ashley Samano for further management and care. DISCHARGE MEDICATIONS: 1. Dilaudid 2 mg p.o. q.4h. for pain. 2. Keppra 1000 mg p.o. b.i.d. DISCHARGE PROCESS TIME: 40 minutes. Discussed plan of care with Dr. Pavon. Dictated By: GIOVANI TAVERAS PRIVACY ATTORNEY for CHRISTOPH PAVON MD RR/BRADY Conf#: [id number] DID#: [id number]
--- NOTE | 2016-06-14 14:20 | CONS ---
Date/Time of Note Date/Time of Note DATE: 06/14/16 TIME: 14:19 Assessment/Plan Assessment/Plan Chief Complaint/Hosp Course SUBJECTIVE: No acute events, no fevers, looks comfortable INDWELLINGS: PICC line. Ventriculostomy PHYSICAL EXAMINATION: GENERAL: Chronically ill-appearing, young man who is in no distress. HEENT: Head atraumatic, normocephalic. Sclerae anicteric. Buccal mucosa dry. NECK: Obese. CHEST: Rise symmetrical. Breath sounds clear, diminished to bases. HEART: S1, S2. ABDOMEN: Soft. Bowel tones present. EXTREMITIES: Without cyanosis. Bilateral edema. Bilateral chronic pressure sores. ASSESSMENT: 1. Recurrent urinary tract infection==> Kleb ESBL. 2. History of spina bifida. 3. History of hydrocephalus, status post DIRECTOR OF INFECTION CONTROL shunt placement. 4. Morbid obesity. 5. Acute encephalopathy 2 to hydrocephalus, s/p Ventriculostomy 06/12/16 PLAN: Remains unchanged, will dc abx and observe, pending tx to tertiary care facility, f/u NS rec-s DW RN Problems: Consultation Date/Type/Reason Admit Date/Time Jun 02, 2016 at 08:09 Type of Consultation: id Exam/Review of Systems Vital Signs Vitals Vital Signs Date Time Temp Pulse Resp B/P Pulse Ox O2 Delivery O2 Flow Rate FiO2 06/14/16 11:00 91 27 114/67 97 Room Air 06/14/16 08:00 99.1 06/13/16 19:00 2.0 Intake and Output 06/13/16 06/13/16 06/14/16 15:00 23:00 07:00 Intake Total 660 ml 310 ml 690 ml Output Total 312 ml 249 ml 172 ml Balance 348 ml 61 ml 518 ml Results Result Diagram: 06/14/16 0335 06/14/16 0335 Results 24 hrs Laboratory Tests Test 06/14/16 03:35 06/14/16 05:30 Anion Gap 15 Basophils # 0.0 Basophils % 0.2 Blood Urea Nitrogen 18 Calcium Level 8.7 Carbon Dioxide Level 29 Chloride Level 105 Creatinine 0.50 L Eosinophils # 0.9 H Eosinophils % 7.3 H Glucose Level 103 Hematocrit 36.9 L Hemoglobin 11.2 L Lymphocytes # 3.2 H Lymphocytes % 25.0 Mean Corpuscular Hemoglobin 26.7 L Mean Corpuscular Hemoglobin Concent 30.4 L Mean Corpuscular Volume 87.9 Mean Platelet Volume 9.9 Monocytes # 1.0 H Monocytes % 7.7 Neutrophils # 7.7 H Neutrophils % 59.5 Nucleated Red Blood Cells # 0.0 Nucleated Red Blood Cells % 0.0 Platelet Count 315 Potassium Level 3.3 L Red Blood Count 4.20 L Red Cell Distribution Width 13.8 Sodium Level 146 H White Blood Count 12.9 H CSF Appearance CLEAR CSF Cell Count Tube # TUBE#4 CSF Color COLORLESS CSF Crenated Cells CSF Glucose 58 CSF Lymphocytes % 73 CSF Monocytes % 18 CSF Neutrophils % 9 CSF RBC 0 CSF Total Cells Counted 100 CSF Total Protein 123 H CSF Tubes Submitted 4 CSF Volume 32.0 CSF WBC 11 H Medications Medications Current Medications Ondansetron HCl (Zofran Inj) 4 mg Q6H PRN IV NAUSEA AND/OR VOMITING Last administered on 06/10/16 17:18; Admin Dose 4 MG; Start 06/02/16 at 09:00 Enoxaparin Sodium (Lovenox) 40 mg DAILY SC Last administered on 06/14/16 08:35 ; Admin Dose 40 MG; Start 06/02/16 at 09:00 Diphenhydramine HCl (Benadryl) 25 mg Q6H PRN IV ALLERGIC REACTION; Start at 10:00 Nystatin (Nystatin Powder) 1 applic BID TOP Last administered on 06/14/16 09: 14; Admin Dose 1 APPLIC; Start 06/03/16 at 21:00 Clonidine 0.1 mg 0.1 mg Q6H PRN PO SBP>160 Last administered on 06/10/16 18:02 ; Admin Dose 0.1 MG; Start 06/03/16 at 14:30 Ertapenem/Sodium Chloride (Invanz/NS) 100 ml @ 200 mls/hr Q24H IVPB Last administered on 06/13/16 16:43; Admin Dose 200 MLS/HR; Start 06/04/16 at 16:00; Stop 06/14/16 at 20:00 IV Flush (NS 10 ml) 10 ml PRN PRN IV IV PROTOCOL; Start 06/04/16 at 19:00 Hydromorphone HCl 1 mg 1 mg Q2H PRN IV PAIN Last administered on 06/14/16 13: 16; Admin Dose 1 MG; Start 06/06/16 at 11:00 Levetiracetam/ Sodium Chloride (Keppra Iv/NS) 110 ml @ 440 mls/hr BID IVPB Last administered on 06/14/16 08:24; Admin Dose 440 MLS/HR; Start 06/12/16 at 09:00 Lorazepam 1 mg 1 mg Q8H PRN IV seizure; Start 06/12/16 at 01:30 Sodium Chloride (NS) 1,000 ml @ 75 mls/hr [id number] IV Last administered on 06/14 13:17; Admin Dose 75 MLS/HR; Start 06/14/16 at 01:30 PAT RODRIGUEZ NP Jun 14, 2016 14:20
[2016-06-15] VITALS (18 sets, daily range): BP systolic 92–141; BP diastolic 56–77; PULSE 81–101; RESP 9–23
[2016-06-15] MEDS: HYDROmorphONE 1 MG/ML SYG IV PRN ×9 (02:23→18:47)
[2016-06-15] MEDS: SOD CHLORIDE 0.9% 1,000 ML IV SCH ×2 (03:24→17:30)
[2016-06-15 05:41] LABS: # OF CELLS COUNTED 100
[2016-06-15 05:51] LABS: ADD SCAN DIFF NO
[2016-06-15 05:58] LABS: BASOPHILS % 0.2 % (0.0-2.0); EOSINOPHILS # 0.8 10^3/ul (0.0-0.5); EOSINOPHILS % 7.4 % (0.0-7.0); HEMATOCRIT 32.3 % (42.0-52.0); HEMOGLOBIN 10.2 g/dl (14.0-18.0); LYMPHOCYTES # 2.8 10^3/ul (0.8-2.9); LYMPHOCYTES % 26.3 % (15.0-51.0); MEAN CORPUSCULAR HEMOGLOBIN 27.3 pg (29.0-33.0); MEAN CORPUSCULAR HGB CONC 31.6 g/dl (32.0-37.0); MEAN CORPUSCULAR VOLUME 86.4 fl (82.0-101.0); MONOCYTE # 0.8 10^3/ul (0.3-0.9); MONOCYTES % 7.7 % (0.0-11.0); NEUTROPHIL # 6.2 10^3/ul (1.6-7.5); NEUTROPHILS % 57.9 % (39.0-77.0); PLATELET COUNT 290 10^3/UL (140-415); RED BLOOD COUNT 3.74 10^6/ul (4.70-6.10); RED CELL DISTRIBUTION WIDTH 13.5 % (11.5-14.5); WHITE BLOOD COUNT 10.8 10^3/ul (4.8-10.8)
[2016-06-15 06:12] LABS: POTASSIUM 3.4 mmol/L (3.5-5.1)
[2016-06-15 06:15] LABS: CREATININE 0.47 mg/dl (0.61-1.24)
[2016-06-15 06:16] LABS: CALCIUM 8.1 mg/dl (8.4-10.2)
[2016-06-15 07:08] LABS: CSF COLOR COLORLESS
[2016-06-15 07:10] LABS: CSF#TUBES REC'D 4
[2016-06-15 07:12] LABS: CSF#TUBE COUNT TUBE#4
[2016-06-15 07:28] LABS: GLUCOSE,CSF 59 mg/dl (50-80)
[2016-06-15] MEDS: LEVETIRACETAM IV 1,000 MG in SOD CHLORIDE 0.9% 100 ML IVPB SCH (08:17)
[2016-06-15] MEDS: ENOXAPARIN 40 MG/0.4 ML SYG SC SCH (08:18)
[2016-06-15] MEDS: NYSTATIN 30 GM POWDER BTL TOP SCH (08:18)
[2016-06-15] MEDS ORDERED: POTASSIUM CHLORIDE (SR) 20 MEQ TAB PO STA (11:23)
--- NOTE | 2016-06-15 14:22 | PN ---
Date/Time of Note Date/Time of Note DATE: 06/15/16 TIME: 14:20 Assessment/Plan VTE Prophylaxis VTE Prophylaxis Intervention: LMWH Lines/Catheters IV Catheter Type (from Nrs): PICC Line Urinary Cath still in place: Yes Assessment/Plan Chief Complaint/Hosp Course Assessment and plan 1. Altered mental status secondary to hydrocephalus. Patient status post ventriculostomy placement. Continue with neurosurgeon recommendations. Plan for transfer to [facility] with Dr. Gage Samano for Endoscopic Coagulation of Choroid Plexus. 2. ESBL UTI. abx per ID. stable 3. History of spina bifida with quadriplegia. Continue positioning every 2 hours and as needed for pressure ulcer prevention 4. Chronic pain syndrome. continue with analgesics as needed DVT prophylaxis: Lovenox Disposition and plan: Awaiting for available bed at [facility]. cont supportive care for now Discussed plan of care with Dr. Pavon Critical care time: 30 minutes Problems: Subjective 24 Hr Interval Summary Free Text/Dictation no s/s of distress. comfortable at this time. Exam/Review of Systems Vital Signs Vitals Vital Signs Date Time Temp Pulse Resp B/P Pulse Ox O2 Delivery O2 Flow Rate FiO2 06/15/16 12:00 96 06/15/16 10:00 17 105/64 97 Room Air 06/15/16 08:00 98.9 06/13/16 19:00 2.0 Intake and Output 06/14/16 06/14/16 06/15/16 15:00 23:00 07:00 Intake Total 1010 ml 1100 ml 525 ml Output Total 957 ml 432 ml 588 ml Balance 53 ml 668 ml -63 ml Exam General: More awake today. No apparent distress noted. slightly depressed Neck: No JVD seen today Cardiac: Remains regular rate. S1-S2 auscultated Pulmonary: no wheezing/rhonchi GI: Soft nontender non-distended Extremities: with foot drop. minimal edema ble Neurologic: Noted with drain on left occipital area. alert to person/place/time Results Result Diagram: 06/15/16 0440 06/15/16 0440 Results 24 hrs Laboratory Tests Test 06/15/16 04:40 06/15/16 05:00 Anion Gap 13 Basophils # 0.0 Basophils % 0.2 Blood Urea Nitrogen 12 Calcium Level 8.1 L Carbon Dioxide Level 27 Chloride Level 103 Creatinine 0.47 L Eosinophils # 0.8 H Eosinophils % 7.4 H Glucose Level 111 Hematocrit 32.3 L Hemoglobin 10.2 L Lymphocytes # 2.8 Lymphocytes % 26.3 Mean Corpuscular Hemoglobin 27.3 L Mean Corpuscular Hemoglobin Concent 31.6 L Mean Corpuscular Volume 86.4 Mean Platelet Volume 10.0 Monocytes # 0.8 Monocytes % 7.7 Neutrophils # 6.2 Neutrophils % 57.9 Nucleated Red Blood Cells # 0.0 Nucleated Red Blood Cells % 0.0 Platelet Count 290 Potassium Level 3.4 L Red Blood Count 3.74 L Red Cell Distribution Width 13.5 Sodium Level 140 White Blood Count 10.8 CSF Appearance CLEAR CSF Cell Count Tube # TUBE#4 CSF Color COLORLESS CSF Crenated Cells CSF Glucose 59 CSF Lymphocytes % 57 CSF Monocytes % 14 CSF Neutrophils % 29 CSF RBC 0 CSF Total Cells Counted 100 CSF Total Protein 91 H CSF Tubes Submitted 4 CSF Volume 32.0 CSF WBC 21 *H Medications Medications Current Medications Ondansetron HCl (Zofran Inj) 4 mg Q6H PRN IV NAUSEA AND/OR VOMITING Last administered on 06/10/16 17:18; Admin Dose 4 MG; Start 06/02/16 at 09:00 Enoxaparin Sodium (Lovenox) 40 mg DAILY SC Last administered on 06/14/16 08:35 ; Admin Dose 40 MG; Start 06/02/16 at 09:00 Diphenhydramine HCl (Benadryl) 25 mg Q6H PRN IV ALLERGIC REACTION Last administered on 06/14/16 21:26; Admin Dose 25 MG; Start 06/02/16 at 10:00 Nystatin (Nystatin Powder) 1 applic BID TOP Last administered on 06/15/16 08: 18; Admin Dose 1 APPLIC; Start 06/03/16 at 21:00 Clonidine (Catapres) 0.1 mg Q6H PRN PO SBP>160 Last administered on 06/10/16 18:02; Admin Dose 0.1 MG; Start 06/03/16 at 14:30 IV Flush (NS 10 ml) 10 ml PRN PRN IV IV PROTOCOL; Start 06/04/16 at 19:00 Hydromorphone HCl 1 mg 1 mg Q2H PRN IV PAIN Last administered on 06/15/16 13: 01; Admin Dose 1 MG; Start 06/06/16 at 11:00 Levetiracetam/ Sodium Chloride (Keppra Iv/NS) 110 ml @ 440 mls/hr BID IVPB Last administered on 06/15/16 08:17; Admin Dose 440 MLS/HR; Start 06/12/16 at 09:00 Lorazepam 1 mg 1 mg Q8H PRN IV seizure; Start 06/12/16 at 01:30 Sodium Chloride (NS) 1,000 ml @ 75 mls/hr [id number] IV Last administered on 06/15 03:24; Admin Dose 75 MLS/HR; Start 06/14/16 at 01:30 GIOVANI TAVERAS Jun 15, 2016 14:22
--- NOTE | 2016-06-15 15:12 | CONS ---
Date/Time of Note Date/Time of Note DATE: 06/15/16 TIME: 15:12 Assessment/Plan Assessment/Plan Chief Complaint/Hosp Course SUBJECTIVE: No acute events, no fevers, looks comfortable INDWELLINGS: PICC line. Ventriculostomy PHYSICAL EXAMINATION: GENERAL: Chronically ill-appearing, young man who is in no distress. HEENT: Head atraumatic, normocephalic. Sclerae anicteric. Buccal mucosa dry. NECK: Obese. CHEST: Rise symmetrical. Breath sounds clear, diminished to bases. HEART: S1, S2. ABDOMEN: Soft. Bowel tones present. EXTREMITIES: Without cyanosis. Bilateral edema. Bilateral chronic pressure sores. ASSESSMENT: 1. S/p recurrent urinary tract infection==> Kleb ESBL. 2. History of spina bifida. 3. History of hydrocephalus, status post INVESTMENT EXECUTIVE shunt placement. 4. Morbid obesity. 5. Acute encephalopathy 2 to hydrocephalus, s/p Ventriculostomy 06/12/16 PLAN: Remains stable off abx, pending tx to tertiary care facility, f/u NS rec- s DW RN Problems: Consultation Date/Type/Reason Admit Date/Time Jun 02, 2016 at 08:09 Type of Consultation: id Exam/Review of Systems Vital Signs Vitals Vital Signs Date Time Temp Pulse Resp B/P Pulse Ox O2 Delivery O2 Flow Rate FiO2 06/15/16 14:00 82 18 110/68 98 06/15/16 12:00 99.1 06/15/16 11:00 Room Air 06/13/16 19:00 2.0 Intake and Output 06/14/16 06/14/16 06/15/16 15:00 23:00 07:00 Intake Total 1010 ml 1100 ml 525 ml Output Total 957 ml 432 ml 588 ml Balance 53 ml 668 ml -63 ml Results Result Diagram: 06/15/16 0440 06/15/16 0440 Results 24 hrs Laboratory Tests Test 06/15/16 04:40 06/15/16 05:00 Anion Gap 13 Basophils # 0.0 Basophils % 0.2 Blood Urea Nitrogen 12 Calcium Level 8.1 L Carbon Dioxide Level 27 Chloride Level 103 Creatinine 0.47 L Eosinophils # 0.8 H Eosinophils % 7.4 H Glucose Level 111 Hematocrit 32.3 L Hemoglobin 10.2 L Lymphocytes # 2.8 Lymphocytes % 26.3 Mean Corpuscular Hemoglobin 27.3 L Mean Corpuscular Hemoglobin Concent 31.6 L Mean Corpuscular Volume 86.4 Mean Platelet Volume 10.0 Monocytes # 0.8 Monocytes % 7.7 Neutrophils # 6.2 Neutrophils % 57.9 Nucleated Red Blood Cells # 0.0 Nucleated Red Blood Cells % 0.0 Platelet Count 290 Potassium Level 3.4 L Red Blood Count 3.74 L Red Cell Distribution Width 13.5 Sodium Level 140 White Blood Count 10.8 CSF Appearance CLEAR CSF Cell Count Tube # TUBE#4 CSF Color COLORLESS CSF Crenated Cells CSF Glucose 59 CSF Lymphocytes % 57 CSF Monocytes % 14 CSF Neutrophils % 29 CSF RBC 0 CSF Total Cells Counted 100 CSF Total Protein 91 H CSF Tubes Submitted 4 CSF Volume 32.0 CSF WBC 21 *H Medications Medications Current Medications Ondansetron HCl (Zofran Inj) 4 mg Q6H PRN IV NAUSEA AND/OR VOMITING Last administered on 06/10/16 17:18; Admin Dose 4 MG; Start 06/02/16 at 09:00 Enoxaparin Sodium (Lovenox) 40 mg DAILY SC Last administered on 06/14/16 08:35 ; Admin Dose 40 MG; Start 06/02/16 at 09:00 Diphenhydramine HCl (Benadryl) 25 mg Q6H PRN IV ALLERGIC REACTION Last administered on 06/14/16 21:26; Admin Dose 25 MG; Start 06/02/16 at 10:00 Nystatin (Nystatin Powder) 1 applic BID TOP Last administered on 06/15/16 08: 18; Admin Dose 1 APPLIC; Start 06/03/16 at 21:00 Clonidine (Catapres) 0.1 mg Q6H PRN PO SBP>160 Last administered on 06/10/16 18:02; Admin Dose 0.1 MG; Start 06/03/16 at 14:30 IV Flush (NS 10 ml) 10 ml PRN PRN IV IV PROTOCOL; Start 06/04/16 at 19:00 Hydromorphone HCl 1 mg 1 mg Q2H PRN IV PAIN Last administered on 06/15/16 15: 08; Admin Dose 1 MG; Start 06/06/16 at 11:00 Levetiracetam/ Sodium Chloride (Keppra Iv/NS) 110 ml @ 440 mls/hr BID IVPB Last administered on 06/15/16 08:17; Admin Dose 440 MLS/HR; Start 06/12/16 at 09:00 Lorazepam 1 mg 1 mg Q8H PRN IV seizure; Start 06/12/16 at 01:30 Sodium Chloride (NS) 1,000 ml @ 75 mls/hr [id number] IV Last administered on 06/15 03:24; Admin Dose 75 MLS/HR; Start 06/14/16 at 01:30 PAT RODRIGUEZ NP Jun 15, 2016 15:12
== END 2016-06-15 19:30 | disposition short-term general hospital (02) | DRG 25 ==
LOC: E/R 00:10 → PP2 08:09 → ICU 06-11 17:45
PROVIDERS: ADMIT Internal Medicine; ATTEND Internal Medicine
PROC: 02HV33Z Insertion of Infusion Device into Superior Vena Cava, Percutaneous Approach (ICD-10-PCS; 2016-06-04)
PROC: B548ZZA Ultrasonography of Superior Vena Cava, Guidance (ICD-10-PCS; 2016-06-04)
PROC: 4A103BD Monitoring of Intracranial Pressure, Percutaneous Approach (ICD-10-PCS; 2016-06-11)
PROC: 8C01X6J Collection of Cerebrospinal Fluid from Indwelling Device in Nervous System (ICD-10-PCS; 2016-06-11)
PROC: 001 Central Nervous System and Cranial Nerves, Bypass (ICD-10-PCS; principal; 2016-06-11 18:00)
DX: Q05.0 Cervical spina bifida with hydrocephalus (principal); G82.51 Quadriplegia, C1-C4 complete; G93.40 Encephalopathy, unspecified; Z68.41 Body mass index [BMI] 40.0-44.9, adult; N13.6 Pyonephrosis; E66.01 Morbid (severe) obesity due to excess calories; T85.09XA Other mechanical complication of ventricular intracranial (communicating) shunt, initial encounter; N39.0 Urinary tract infection, site not specified; N31.8 Other neuromuscular dysfunction of bladder; B96.1 Klebsiella pneumoniae [K. pneumoniae] as the cause of diseases classified elsewhere; G89.4 Chronic pain syndrome; Y84.8 Other medical procedures as the cause of abnormal reaction of the patient, or of later complication, without mention of misadventure at the time of the procedure; Y92.230 Patient room in hospital as the place of occurrence of the external cause; Z72.0 Tobacco use; Z98.2 Presence of cerebrospinal fluid drainage device
CPT/HCPCS: 36569; 70450; 71010; 76937; 80048; 80053; 81001; 81003; 82945; 82962; 84157; 84166; 84443; 85025; 87070; 87086; 89050; 96365; 96372; 96375; A4310; C1769; J0360; J0743; J1170; J1200; J1335; J1644; J1650; J1953; J1956; J2250; J2270; J2405; J2710; J2997; J3010; J7030

== ENCOUNTER 2016-08-12 21:04 | Emergency (ER) | payer OTHER ==
[~2016-08-12] VITALS: Ht 157.5 cm; Wt 52.3 kg
[~2016-08-12 21:04] MED LIST changes: -CIPR500T4 PO; +HYDR2TAB3 PO; +LEVE100018 PO; -OXYC-279 PO
[2016-08-12 21:08] VITALS: Ht 157.5 cm; Wt 52.3 kg
[2016-08-12] MEDS ORDERED: SOD CHLORIDE 0.9% 500 ML IV STA (22:14)
[2016-08-12] MEDS ORDERED: ONDANSETRON 4 MG INJ IV STA (22:14)
[2016-08-12] MEDS ORDERED: morphine 4 MG/ML VIAL IV STA (22:14)
[2016-08-12] MEDS ORDERED: HYDROmorphONE 1 MG/ML SYG IM STA (23:24)
--- NOTE | 2016-08-12 23:44 | RADRPT ---
PROCEDURE: CT Abdomen and Pelvis without contrast. CLINICAL INDICATION: Abdominal pain, flank and bladder pain TECHNIQUE: CT scan of the abdomen and pelvis without contrast was performed on a multidetector hig h-resolution CT scanner. The patient was scanned without intravenous contrast. Coronal and sagittal reformatted images were obtained from the axial source images. Images were reviewed on a high-resol [employer] PACS workstation. The total exam CTDI equals 20.82 mGy and the total exam DLP equals 1300.04 m Gy-cm. One or more the following dose reduction techniques were utilized: Automated exposure control, adjus tment of the mA/ or kV according to patient's size, or use of iterative reconstruction technique. COMPARISON: 09/03/2014 FINDINGS: CT abdomen: Right lower pleural catheters again seen. Linear atelectasis/fibrosis at lung bases. Right lower lat eral pleural thickening appearing since previous study. Right peritoneal catheter again seen. Left peritoneal catheter appearing since previous study. The heart size is normal, without pericardial th ickening or effusion. 1 cm fluid density structure could represent a cyst in the medial segment of l eft lobe of liver not seen on previous study. The spleen is normal in size and homogeneous in densi ty. Food material/debris and air in stomach. The pancreas as visualized is normal. Cholecystectomy . There is no evidence for biliary dilatation. The adrenal glands are symmetric and normal. The k idneys are symmetrically unremarkable. No renal calculus or obstructive uropathy or mass lesion is seen. Small supraumbilical hernia containing fat only again seen. The aorta is of normal caliber. There is no retroperitoneal lymphadenopathy. The bonifacio hepatis r egion is clear. CT pelvis: The small bowel loops situated within the pelvis are unremarkable. Bladder wall trabeculation could be secondary to an neurogenic bladder again seen. Small left inguinal hernia containing fat again s een. Opaque sutures in sigmoid colon again seen. No mass, lymphadenopathy, or free fluid is seen. There is an unremarkable appendix Spina bifida again seen. Deformity of right ischium and inferior pubic ramus again seen. Atrophic m uscular changes again seen greatest in the right buttock and upper thigh. Appearance of old left low er posterior rib fracture appearing since previous study. IMPRESSION: Right lower pleural catheters again seen. Right peritoneal catheter again seen. Left peritoneal ca theter appearing since previous study. Soft tissue stranding in subcutaneous fat adjacent to inserti on of left peritoneal catheter. Small supraumbilical hernia containing fat only again seen. 1 cm f luid density structure could represent cyst in medial segment of left lobe of liver not seen on prev ious study. Bladder wall trabeculation which could be secondary to an neurogenic bladder again seen. Small left inguinal hernia containing fat again seen. Please see above. RPTAT: HJES .Ozzy Kimble MD, MD Date Time Electronically viewed and signed by .Ozzy Kimble MD, on 08/12/2016 23:44 .S/
[2016-08-12] MEDS ORDERED: HYDR2TAB15 PO (23:55)
--- NOTE | 2016-08-12 23:57 | ERD ---
ER Documentation Chief Complaint Date/Time DATE: 08/12/16 TIME: 23:56 Chief Complaint BIBA from home,c/o flank & pelvic pain,hx spina bifida HPI This is a 26-year-old male comes in complaints of flank pain. Patient has history of spina bifida. History of chronic pain. Says this is an acute exacerbation of his chronic pain. Pain is mild to moderate in intensity. No fevers no chills. No other current complaints ROS All systems reviewed and are negative except as per history of present illness. Medications Home Meds Active Scripts Hydromorphone Hcl* (Dilaudid*) 2 Mg Tablet, 1 MG PO Q4H Y for PAIN LEVEL 6-10, # 14 TAB Prov:MAMTA SMITH 08/12/16 Discontinued Scripts Levetiracetam* (Keppra*) 1,000 Mg Tablet, 1000 MG PO BID for 30 Days, TAB Prov:GIOVANI TAVERAS 06/14/16 Hydromorphone Hcl (Dilaudid) 2 Mg Tab, 2 MG PO q4h prn, #20 TAB Prov:ZI ROTHMAN MD 06/06/16 Allergies Allergies: Coded Allergies: cefotaxime (Unverified Allergy, Intermediate, 08/12/16) latex (Unverified Allergy, Intermediate, RASH, 08/12/16) ketorolac (Unverified Allergy, Mild, RASH, 08/12/16) oxycodone (Unverified Allergy, Mild, swelling of lips, 08/12/16) papaya (Unverified Allergy, Mild, 08/12/16) piperacillin sodium (Unverified Allergy, Mild, hives, 08/12/16) tazobactam sodium (Unverified Allergy, Mild, hives, 08/12/16) acetaminophen (Unverified Allergy, Unknown, RASH, 08/12/16) hydrocodone (Unverified Allergy, Unknown, RASH, 08/12/16) ibuprofen (Unverified Allergy, Unknown, LIP SWELLING, STATED THROAT IS CLOSING, 08/12/16) piperacillin (Unverified Allergy, Unknown, 08/12/16) tazobactam (Unverified Allergy, Unknown, 08/12/16) PMhx/Soc History of Surgery: Yes (lower back and head surgery) Anesthesia Reaction: No 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 Neck: Full range of motion..~ No meningismus. Resp: Clear to auscultation bilaterally Cardio: Regular rate and rhythm, no murmurs Abd: Soft, non tender, non distended. Normal bowel sounds Skin: No petechiae or rashes Back: No midline or flank tenderness Ext: No cyanosis, or edema Neur: Awake and alert Psych: Normal Mood and Affect Results 24 hrs Current Medications Medications (Trade) Dose Ordered Sig/Evaristo Route PRN Reason Start Time Stop Time Status Last Admin Dose Admin Sodium Chloride (NS) 500 ml @ 500 mls/hr Q1H STAT IV 08/12/16 22:14 08/12/16 23:13 DC Morphine Sulfate (morphine) 4 mg ONCE STAT IV 08/12/16 22:14 08/12/16 22:15 DC 08/12/16 22:32 Ondansetron HCl (Zofran Inj) 4 mg ONCE STAT IV 08/12/16 22:14 08/12/16 22:15 DC Hydromorphone HCl (Dilaudid) 1 mg ONCE STAT IM 08/12/16 23:24 08/12/16 23:27 DC 08/12/16 23:41 Procedures/MDM CT shows no acute process. Please see radiologist full dictation for full report. Medical decision-makin-year-old male currently acute on chronic pain syndrome. Pain treated. Discharged home. Departure Diagnosis: Primary Impression: Flank pain Condition: Stable Patient Instructions: Flank Pain, Uncertain Cause MAMTA SMITH August 12, 2016 23:57
[2016-08-13 00:16] VITALS: BP 143/80; PULSE 100; RESP 22; TEMP 98.6
== END 2016-08-13 00:51 | disposition home or self-care (01) ==
LOC: E/R 21:04
DX: R10.2 Pelvic and perineal pain (principal); F17.210 Nicotine dependence, cigarettes, uncomplicated; Z91.040 Latex allergy status
CPT/HCPCS: 74176; 96372; 96374; J1170; J2270; J7040; Z7502; J2405

== ENCOUNTER 2016-08-18 12:11 | Emergency (ER) | payer OTHER ==
[~2016-08-18] VITALS: Ht 157.5 cm; Wt 89.0 kg
[~2016-08-18 12:11] MED LIST changes: +HYDR2TAB15 PO; -HYDR2TAB3 PO; -LEVE100018 PO
[2016-08-18 12:31] VITALS: Ht 157.5 cm; Wt 89.0 kg
--- NOTE | 2016-08-18 15:42 | ERD ---
ER Documentation Chief Complaint Date/Time DATE: 08/18/16 TIME: 15:38 Chief Complaint ap, HPI 26-year-old male history of spina bifida who presents the emergency room with "bladder pain". The patient cannot tell me how long he has had this pain. He describes bladder pain that is moderate and constant with associated dysuria. He denies any fevers or flank pain. The patient is asking for IV and IM narcotics by name. The patient was here on the 15th of the month with a full workup including CT imaging of the abdomen and pelvis. He denies this visit. ROS All systems reviewed and are negative except as per history of present illness. Medications Home Meds Active Scripts Nitrofurantoin Monohyd Macrocr* (Macrobid*) 100 Mg Capsr, 100 MG PO BID for 7 Days, CAP Prov:JUAQUIN CAT MD 08/18/16 Hydromorphone Hcl* (Dilaudid*) 2 Mg Tablet, 1 MG PO Q4H Y for PAIN LEVEL 6-10, # 14 TAB Prov:MAMTA SMITH 08/12/16 Discontinued Scripts Levetiracetam* (Keppra*) 1,000 Mg Tablet, 1000 MG PO BID for 30 Days, TAB Prov:GIOVANI TAVERAS 06/14/16 Hydromorphone Hcl (Dilaudid) 2 Mg Tab, 2 MG PO q4h prn, #20 TAB Prov:ZI ROTHMAN MD 06/06/16 Allergies Allergies: Coded Allergies: cefotaxime (Unverified Allergy, Intermediate, 08/12/16) latex (Unverified Allergy, Intermediate, RASH, 08/12/16) ketorolac (Unverified Allergy, Mild, RASH, 08/12/16) oxycodone (Unverified Allergy, Mild, swelling of lips, 08/12/16) papaya (Unverified Allergy, Mild, 08/12/16) piperacillin sodium (Unverified Allergy, Mild, hives, 08/12/16) tazobactam sodium (Unverified Allergy, Mild, hives, 08/12/16) acetaminophen (Unverified Allergy, Unknown, RASH, 08/12/16) hydrocodone (Unverified Allergy, Unknown, RASH, 08/12/16) ibuprofen (Unverified Allergy, Unknown, LIP SWELLING, STATED THROAT IS CLOSING, 08/12/16) piperacillin (Unverified Allergy, Unknown, 08/12/16) tazobactam (Unverified Allergy, Unknown, 08/12/16) PMhx/Soc History of Surgery: Yes (lower back and head surgery) Anesthesia Reaction: No 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 Eyes: Pupils equally reactive, EOM intact ENT: Moist mucous membranes Neck: Supple, no lymphadenopathy Respiratory: Lungs clear bilaterally, no distress Cardiovascular: RRR, no murmurs, rubs, or gallops Abdominal: Soft, mild suprapubic tenderness without rebound or guarding, no peritonitis : Deferred MSK: No edema, no unilateral swelling, lower extremity paralysis Neurologic: Alert and oriented, normal speech, no cerebellar signs Skin: No rash Psych: Normal mood Procedures/MDM A combination of electronic medical record review, [facility] database review and patient behavior in the emergency room are concerning for drug-seeking and/or narcotic dependence behavior. In my opinion further use of IV or IM narcotics in this patient is not warranted unless clinical scenario changes. In addition , we should use caution prescribing chronic narcotic and/or benzodiazepine medications from the emergency room. A single provider should be dispensing this type of medication. The patient was informed. The patient's KELLY report shows 23 visits in a 12 month timeframe most recently on the [facility] on the at [facility] on July 28 at [facility] on July [facility] at [facility] on July 21 at [facility] of her pain related issues. The patient denies any of these visits. I offer the patient oral narcotic pain medication given his extensive allergy list. The patient refuses this. He will not be getting IV or IM narcotics as I do not believe it is warranted. I do not believe the patient has an acute intra-abdominal process. He is a mostly benign abdominal exam with potential for urinary tract infection. No evidence of systemic illness or pyelonephritis. Urine dip consistent with UTI with positive nitrites, leukoesterase. We discussed follow up with the patient's primary care doctor within 24 to 48 hours as needed. We also discussed return to the emergency room for worsening symptoms or worsening condition. Outpatient referral: [None required] Discharge Medications: Macrobid Departure Diagnosis: Primary Impression: Abdominal pain Abdominal location: lower abdomen, unspecified Qualified Code: R10.30 - Lower abdominal pain Additional Impressions: Acute cystitis Hematuria presence: without hematuria Qualified Code: N30.00 - Acute cystitis without hematuria Drug-seeking behavior Condition: Stable JUAQUIN CAT MD August 18, 2016 15:42
[2016-08-18] MEDS ORDERED: NITR-58 PO (15:48)
[2016-08-18 16:03] LABS: ADD UMIC YES; URINE BILIRUBIN (Dip) NEGATIVE (NEGATIVE); URINE BLOOD (Dip) 1+ (NEGATIVE); URINE COLOR LT. YELLOW (YELLOW); URINE GLUCOSE (Dip) NEGATIVE (NEGATIVE); URINE KETONES (Dip) NEGATIVE (NEGATIVE); URINE LEUKOCYTE ESTERASE (Dip) 2+ (NEGATIVE); URINE NITRITE (Dip) POSITIVE (NEGATIVE); URINE TOTAL PROTEIN (Dip) 1+ (NEGATIVE); URINE UROBILINOGEN (Dip) 0.2 E.U./dL (0.1-1.0)
[2016-08-18 16:14] LABS: BACTERIA,URINE MODERATE
== END 2016-08-18 17:11 | disposition home or self-care (01) ==
LOC: E/R 12:11
DX: R10.30 Lower abdominal pain, unspecified (principal); R40.2252 Coma scale, best verbal response, oriented, at arrival to emergency department; N30.00 Acute cystitis without hematuria; R40.2142 Coma scale, eyes open, spontaneous, at arrival to emergency department; R40.2362 Coma scale, best motor response, obeys commands, at arrival to emergency department; Z72.89 Other problems related to lifestyle; Z91.040 Latex allergy status; Z87.891 Personal history of nicotine dependence
CPT/HCPCS: 81001; 87086; Z7502; 81003; 99283

== ENCOUNTER 2016-09-06 12:31 | Emergency (ER) | payer OTHER ==
[~2016-09-06] VITALS: Ht 165.1 cm; Wt 100.0 kg
[~2016-09-06 12:31] MED LIST changes: +NITR-58 PO
[2016-09-06 12:32] VITALS: Ht 165.1 cm; Wt 100.0 kg
[2016-09-06] MEDS ORDERED: ONDANSETRON 4 MG INJ IM STA (12:55)
[2016-09-06] MEDS ORDERED: morphine 10 MG INJ IM ONE ×2 (13:00→15:30)
[2016-09-06 13:56] LABS: ADD UMIC YES; URINE BILIRUBIN (Dip) NEGATIVE (NEGATIVE); URINE BLOOD (Dip) 1+ (NEGATIVE); URINE COLOR LT. YELLOW (YELLOW); URINE GLUCOSE (Dip) NEGATIVE (NEGATIVE); URINE KETONES (Dip) NEGATIVE (NEGATIVE); URINE LEUKOCYTE ESTERASE (Dip) 1+ (NEGATIVE); URINE NITRITE (Dip) POSITIVE (NEGATIVE); URINE TOTAL PROTEIN (Dip) 1+ (NEGATIVE); URINE UROBILINOGEN (Dip) 0.2 E.U./dL (0.1-1.0)
[2016-09-06 14:11] LABS: BACTERIA,URINE MODERATE
[2016-09-06] MEDS ORDERED: TRIMETHOPRIM/SULFAMETHOX (DS) TAB PO STA (14:31)
[2016-09-06] MEDS ORDERED: CEFTRIAXONE 1 GM INJ IM STA (14:31)
[2016-09-06] MEDS ORDERED: SULF1TAB31 PO (14:34)
[2016-09-06] MEDS ORDERED: morphine 4 MG/ML VIAL IV STA (15:08)
--- NOTE | 2016-09-06 15:18 | ERD ---
ER Documentation Chief Complaint Date/Time DATE: 09/06/16 TIME: 15:18 Chief Complaint Complains of abdominal and bladder pain HPI This is a 26-year-old male with spina bifida and recurrent urinary tract infections presenting to the emergency department complaining of severe suprapubic tenderness for the past 2 weeks. Patient complains of painful urination. Patient denies fever, flank pain. Patient states that he has been seen here a couple weeks ago and was given Macrobid. Patient states that he has finished the antibiotic course however his pain has not gone any better but it has not worsened. Patient is asking for pain medication ROS All systems reviewed and are negative except as per history of present illness. Medications Home Meds Active Scripts Sulfamethoxazole/Trimethoprim* (Bactrim Ds* Tablet) 1 Each Tablet, 1 TAB PO BID , #24 TAB Prov:JAYASHREE CHAVEZ PA-C 09/06/16 Nitrofurantoin Monohyd Macrocr* (Macrobid*) 100 Mg Capsr, 100 MG PO BID for 7 Days, CAP Prov:JUAQUIN CAT MD 08/18/16 Hydromorphone Hcl* (Dilaudid*) 2 Mg Tablet, 1 MG PO Q4H Y for PAIN LEVEL 6-10, # 14 TAB Prov:MAMTA SMITH 08/12/16 Allergies Allergies: Coded Allergies: cefotaxime (Unverified Allergy, Intermediate, 08/12/16) latex (Unverified Allergy, Intermediate, RASH, 08/12/16) ketorolac (Unverified Allergy, Mild, RASH, 08/12/16) oxycodone (Unverified Allergy, Mild, swelling of lips, 08/12/16) papaya (Unverified Allergy, Mild, 08/12/16) piperacillin sodium (Unverified Allergy, Mild, hives, 08/12/16) tazobactam sodium (Unverified Allergy, Mild, hives, 08/12/16) acetaminophen (Unverified Allergy, Unknown, RASH, 08/12/16) hydrocodone (Unverified Allergy, Unknown, RASH, 08/12/16) ibuprofen (Unverified Allergy, Unknown, LIP SWELLING, STATED THROAT IS CLOSING, 08/12/16) piperacillin (Unverified Allergy, Unknown, 08/12/16) tazobactam (Unverified Allergy, Unknown, 08/12/16) PMhx/Soc History of Surgery: No Anesthesia Reaction: No Hx Neurological Disorder: No Hx Respiratory Disorders: No Hx Cardiac Disorders: No Hx Psychiatric Problems: No Hx Miscellaneous Medical Probl: Yes (spinal bifida; incontinent) Hx Alcohol Use: No Hx Substance Use: No Hx Tobacco Use: No Physical Exam Vitals Vital Signs Date Time Temp Pulse Resp B/P Pulse Ox O2 Delivery O2 Flow Rate FiO2 09/06/16 12:32 98.3 103 20 141/77 98 Physical Exam Const: Well-developed well-nourished no acute distress Head: Atraumatic Eyes: Normal Conjunctiva ENT: Normal External Ears, Nose and Mouth. Neck: Full range of motion..~ No meningismus. Resp: Clear to auscultation bilaterally Cardio: Regular rate and rhythm, no murmurs Abd: Soft, tender to palpation in the suprapubic region, non distended. Normal bowel sounds Skin: No petechiae or rashes Back: No midline or flank tenderness Ext: No cyanosis, or edema Neur: Awake and alert Psych: Normal Mood and Affect Results 24 hrs Laboratory Tests Test 09/06/16 13:25 Urine Color LT. YELLOW Urine Clarity CLEAR Urine pH 6.5 Urine Specific [place] 1.020 Urine Ketones NEGATIVE Urine Nitrite POSITIVE Urine Bilirubin NEGATIVE Urine Urobilinogen 0.2 E.U./dL Urine Leukocyte Esterase 1+ Urine Microscopic RBC 2-5/HPF Urine Microscopic WBC >50/HPF Urine Bacteria MODERATE Urine Hemoglobin 1+ Urine Glucose NEGATIVE% Urine Total Protein 1+ Current Medications Medications (Trade) Dose Ordered Sig/Evaristo Route PRN Reason Start Time Stop Time Status Last Admin Dose Admin Morphine Sulfate (morphine) 4 mg ONCE ONCE IM 09/06/16 13:00 09/06/16 13:01 DC 09/06/16 13:26 Ondansetron HCl (Zofran Inj) 4 mg ONCE STAT IM 09/06/16 12:55 09/06/16 12:57 DC 09/06/16 13:26 Ceftriaxone Sodium (Rocephin) 1 gm ONCE STAT IM 09/06/16 14:31 09/06/16 14:35 DC Trimethoprim/ Sulfamethoxazole (Bactrim (Ds)) 1 tab ONCE STAT PO 09/06/16 14:31 09/06/16 14:32 DC 09/06/16 15:16 Morphine Sulfate (morphine) 4 mg ONCE STAT IV 09/06/16 15:08 09/06/16 15:10 DC Morphine Sulfate (morphine) 4 mg ONCE ONCE IM 09/06/16 15:30 09/06/16 15:31 09/06/16 15:16 Procedures/MDM This is a 26-year-old male with a history of spina bifida and recurrent urinary tract infections presenting to the emergency department complaining of constant suprapubic pain with dysuria for the past 2 weeks. Patient has been seen here on August 17 with positive UA and has received Macrobid. Urine culture was sent out at that time and I have reviewed it. It appears that it was resistant to Macrobid and susceptible to Bactrim. A urinalysis was done in the ED today and showed positive nitrite, leukocyte esterase consistent with a urinary tract infection. Patient appears nontoxic, well with stable vital signs. He is afebrile. I have a low suspicion for pyelonephritis or infected nephrolithiasis. Patient is appropriate for trial of outpatient antibiotics. In the ED first dose of Bactrim was provided. In addition, patient has shown drug-seeking behavior in the past and showing drug-seeking behavior currently by asking for morphine since he is allergic to Tylenol and ibuprofen. I have given him 8mg of morphine and given him lengthy discussion. I have discussed with him that I will not be giving him any narcotic for home. Discussed with patient to follow-up with primary care physician. Discussed return to the ER for any worsening sinus symptoms. He understands and agrees with this plan Departure Diagnosis: Primary Impression: UTI (urinary tract infection) Urinary tract infection type: acute cystitis Hematuria presence: with hematuria Qualified Code: N30.01 - Acute cystitis with hematuria Condition: Stable Patient Instructions: Understanding Urinary Tract Infections (UTIs) Referrals: ANNA KHAN MD (PCP) Additional Instructions: FOLLOW UP WITH YOUR PRIMARY CARE PHYSICIAN TOMORROW.Return to this facility if you are not improving as expected. Take all medicines as directed. Return to this facility if you are not improving as expected. JAYASHREE CHAVEZ PA-C Sep 06, 2016 15:18
== END 2016-09-06 15:27 | disposition home or self-care (01) ==
LOC: FTE 12:31
DX: N30.01 Acute cystitis with hematuria (principal); Z91.040 Latex allergy status
CPT/HCPCS: 81001; 87086; 96372; J2270; J2405; Z7502; Z7610

== ENCOUNTER 2016-09-15 15:44 | Inpatient (IN) | payer OTHER ==
[~2016-09-15] VITALS: Ht 167.6 cm; Wt 100.0 kg
[~2016-09-15 15:44] MED LIST changes: +SULF1TAB31 PO
[2016-09-15] MEDS ORDERED: SODIUM CHLORIDE 0.9% 1L BAG IV* STA (17:33)
[2016-09-15] MEDS ORDERED: MEROPENEM 1 GM/100 ML (PMX) 100 ML IVPB STA (17:44)
[2016-09-15 17:59] LABS: ADD UMIC YES; UR BILIRUBIN (Dip) NEGATIVE (NEGATIVE); UR BLOOD (Dip) TRACE (NEGATIVE); UR CLARITY CLEAR (CLEAR); UR COLOR LT. YELLOW (YELLOW); UR GLUCOSE (Dip) NEGATIVE (NEGATIVE); UR KETONES (Dip) NEGATIVE (NEGATIVE); UR LEUKOCYTE ESTERASE (Dip) 2+ (NEGATIVE); UR NITRITE (Dip) POSITIVE (NEGATIVE); UR TOTAL PROTEIN (Dip) TRACE (NEGATIVE); UR UROBILINOGEN (Dip) 0.2 E.U./dL (0.1-1.0)
[2016-09-15] MEDS ORDERED: HYDROmorphONE 2 MG TAB PO ONE (18:00)
[2016-09-15 18:09] LABS: UR BACTERIA MANY
--- NOTE | 2016-09-15 18:10 | ERA ---
ER Documentation Chief Complaint Date/Time DATE: 09/15/16 TIME: 18:08 Chief Complaint Complains of abdominal and pelvic pain HPI 26-year-old male history of spina bifida, chronic pain syndrome, recurrent UTIs who presents to the emergency room complaining of bladder pain, abdominal pain and flank pain. The patient was seen here roughly 1 week ago for a UTI and given an antibiotic. He describes persistence of symptoms. He is asking for narcotic pain medication. No fevers. No chest pain or shortness of breath. ROS All systems reviewed and are negative except as per history of present illness. Medications Home Meds Discontinued Scripts Sulfamethoxazole/Trimethoprim* (Bactrim Ds* Tablet) 1 Each Tablet, 1 TAB PO BID , #24 TAB Prov:JAYASHREE CHAVEZ PA-C 09/06/16 Nitrofurantoin Monohyd Macrocr* (Macrobid*) 100 Mg Capsr, 100 MG PO BID for 7 Days, CAP Prov:JUAQUIN CAT MD 08/18/16 Hydromorphone Hcl* (Dilaudid*) 2 Mg Tablet, 1 MG PO Q4H Y for PAIN LEVEL 6-10, # 14 TAB Prov:MAMTA SMITH 08/12/16 Allergies Allergies: Coded Allergies: cefotaxime (Unverified Allergy, Intermediate, 08/12/16) latex (Unverified Allergy, Intermediate, RASH, 08/12/16) ketorolac (Unverified Allergy, Mild, RASH, 08/12/16) oxycodone (Unverified Allergy, Mild, swelling of lips, 08/12/16) papaya (Unverified Allergy, Mild, 08/12/16) piperacillin sodium (Unverified Allergy, Mild, hives, 08/12/16) tazobactam sodium (Unverified Allergy, Mild, hives, 08/12/16) acetaminophen (Unverified Allergy, Unknown, RASH, 08/12/16) hydrocodone (Unverified Allergy, Unknown, RASH, 08/12/16) ibuprofen (Unverified Allergy, Unknown, LIP SWELLING, STATED THROAT IS CLOSING, 08/12/16) piperacillin (Unverified Allergy, Unknown, 08/12/16) tazobactam (Unverified Allergy, Unknown, 08/12/16) PMhx/Soc History of Surgery: No Anesthesia Reaction: No Hx Neurological Disorder: No Hx Respiratory Disorders: No Hx Cardiac Disorders: No Hx Psychiatric Problems: No Hx Miscellaneous Medical Probl: Yes (spinal bifida; incontinent) Hx Alcohol Use: No Hx Substance Use: No Hx Tobacco Use: No Smoking Status: Never smoker FmHx Family History: No diabetes Physical Exam Vitals Vital Signs Date Time Temp Pulse Resp B/P Pulse Ox O2 Delivery O2 Flow Rate FiO2 09/15/16 18:15 Nasal Cannula 09/15/16 15:46 98.6 92 20 158/74 96 Physical Exam General: Well developed, well nourished, no acute distress Head: Normocephalic, atraumatic. Eyes: Pupils equally reactive, EOM intact ENT: Moist mucous membranes Neck: Supple, no lymphadenopathy Respiratory: Lungs clear bilaterally, no distress Cardiovascular: RRR, no murmurs, rubs, or gallops Abdominal: Soft, non-tender, non-distended, no peritoneal signs : Deferred MSK: No edema, no unilateral swelling Neurologic: Alert and oriented,, normal speech, motor exam consistent with baseline weakness to bilateral lower extremities, no cerebellar signs Skin: No rash Psych: Normal mood Result Diagram: 09/15/16 1753 09/15/16 1753 Results 24 hrs Laboratory Tests Test 09/15/16 17:15 09/15/16 17:53 Urine Color LT. YELLOW Urine Clarity CLEAR Urine pH 6.0 Urine Specific [place] 1.020 Urine Ketones NEGATIVE Urine Nitrite POSITIVE Urine Bilirubin NEGATIVE Urine Urobilinogen 0.2 E.U./dL Urine Leukocyte Esterase 2+ Urine Microscopic RBC 5-10/HPF Urine Microscopic WBC >50/HPF Urine Bacteria MANY Urine Hemoglobin TRACE Urine Glucose NEGATIVE% Urine Total Protein TRACE White Blood Count 11.810^3/ul Red Blood Count 4.9110^6/ul Hemoglobin 12.9g/dl Hematocrit 41.8% Mean Corpuscular Volume 85.1fl Mean Corpuscular Hemoglobin 26.3pg Mean Corpuscular Hemoglobin Concent 30.9g/dl Red Cell Distribution Width 15.8% Platelet Count 49943^3/UL Mean Platelet Volume 9.9fl Neutrophils % 54.4% Lymphocytes % 33.3% Monocytes % 6.9% Eosinophils % 4.8% Basophils % 0.3% Nucleated Red Blood Cells % 0.0/100WBC Neutrophils # 6.410^3/ul Lymphocytes # 3.910^3/ul Monocytes # 0.810^3/ul Eosinophils # 0.610^3/ul Basophils # 0.010^3/ul Nucleated Red Blood Cells # 0.010^3/ul Prothrombin Time 12.8Sec Prothrombin Time Ratio 1.0 INR International Normalized Ratio 0.96 Activated Partial Thromboplast Time 30.4Sec Sodium Level 143mmol/L Potassium Level 3.6mmol/L Chloride Level 111mmol/L Carbon Dioxide Level 23mmol/L Anion Gap 13 Blood Urea Nitrogen 17mg/dl Creatinine 0.59mg/dl Glucose Level 88mg/dl Lactic Acid Level 1.4mmol/L Calcium Level 9.2mg/dl Total Bilirubin 0.3mg/dl Direct Bilirubin 0.00mg/dl Indirect Bilirubin 0.3mg/dl Aspartate Amino Transf (AST/SGOT) 25IU/L Alanine Aminotransferase (ALT/SGPT) 46IU/L Alkaline Phosphatase 168IU/L Total Protein 7.9g/dl Albumin 4.6g/dl Globulin 3.30g/dl Albumin/Globulin Ratio 1.39 Current Medications Medications (Trade) Dose Ordered Sig/Evaristo Route PRN Reason Start Time Stop Time Status Last Admin Dose Admin Sodium Chloride (NS) 3,100 ml BOLUS OVER 2 HOURS STAT IV* 09/15/16 17:33 09/15/16 17:36 DC 09/15/16 18:12 Hydromorphone HCl 2 mg 2 mg ONCE ONCE PO 09/15/16 18:00 09/15/16 18:01 DC 09/15/16 18:11 Meropenem (Merrem 1 Gm/100 ml (Pmx)) 100 ml @ 200 mls/hr ONCE STAT IVPB 09/15/16 17:44 09/15/16 18:13 DC 09/15/16 19:34 Ondansetron HCl (Zofran Inj) 4 mg BRIDGE ORDER PRN IV NAUSEA AND/OR VOMITING 09/15/16 19:30 09/16/16 19:29 Procedures/MDM PROCEDURES: Peripheral IV Insertion: Indication: Difficult IV access Location: Right antecubital fossa Attempts: 1 Angiocath-type: 18 The patient was consented prior to procedure and states understanding of risks, benefits, alternatives. Verbal consent was provided Sterile procedure was used to insert a peripheral IV. Indication, location and Angiocath-type are noted above. Ultrasound guidance was used to assist in the insertion of the Angiocath. Return of dark nonpulsatile blood was obtained, normal saline flushed through the Angiocath which was then secured to the skin. The patient tolerated the procedure well without complications. Emergency Bedside Ultrasound: The patient was verbally consented prior to procedure and understands the risks , benefits, and alternatives. The patient is agreeable to procedure and has given verbal consent. Indication: Peripheral IV insertion Probe Type: Linear Findings: Dynamic ultrasound utilized with compression technique with both linear and horizontal views. LAB INTERPRETATION: Slight leukocytosis of 11.8, normal lactic acid MEDICAL DECISION MAKING: The patient's most recent urine culture shows evidence of Klebsiella that is ESBL only sensitive to cefepime and imipenem. The patient has multiple allergies but does not recall his reaction. He does not describe anaphylaxis. I believe that meropenem would be appropriate, I had this conversation in conjunction with the pharmacist. They recommend meropenem trial dose of 20-40 cc an evaluation. If the patient tolerates and continue this medication if not then colistin would be the next step. The patient has no evidence of sepsis. He is asking for IV narcotics. I do not feel patient requires IV narcotics. I do not believe he has an acute intra- abdominal process. The patient will be given p.o. Dilaudid consistent with his chronic pain medication. A combination of electronic medical record review, CURES database review and patient behavior in the emergency room are concerning for drug-seeking and/or narcotic dependence behavior. In my opinion further use of IV or IM narcotics in this patient is not warranted unless clinical scenario changes. In addition , we should use caution prescribing chronic narcotic and/or benzodiazepine medications from the emergency room. A single provider should be dispensing this type of medication. The patient was informed. ER COURSE: Patient given 30 cc/kg of saline. He was also given antibiotics as documented above. I kept the patient and/or family informed of laboratory and diagnostic imaging results throughout the emergency room course. DISPOSITION PLAN: Medical surgical admission CONSULTATION: Accepting care team and consultations: I discussed the current laboratory data, diagnostic imaging and emergency care provided. Admitting team: Dr. Alex Admitting team indication: Insurance directed Departure Diagnosis: Primary Impression: Morbid obesity Qualified Code: E66.01 - Morbid obesity, unspecified obesity type Additional Impressions: Urinary tract infection Qualified Code: N30.00 - Acute cystitis without hematuria Chronic pain syndrome Condition: JUAQUIN Shell MD Sep 15, 2016 18:10
[2016-09-15 18:11] LABS: ADD SCAN DIFF NO
[2016-09-15 18:12] LABS: BASOPHILS % 0.3 % (0.0-2.0); EOSINOPHILS # 0.6 10^3/ul (0.0-0.5); EOSINOPHILS % 4.8 % (0.0-7.0); HEMATOCRIT 41.8 % (42.0-52.0); HEMOGLOBIN 12.9 g/dl (14.0-18.0); LYMPHOCYTES # 3.9 10^3/ul (0.8-2.9); LYMPHOCYTES % 33.3 % (15.0-51.0); MEAN CORPUSCULAR HEMOGLOBIN 26.3 pg (29.0-33.0); MEAN CORPUSCULAR HGB CONC 30.9 g/dl (32.0-37.0); MEAN CORPUSCULAR VOLUME 85.1 fl (82.0-101.0); MEAN PLATELET VOLUME 9.9 fl (7.4-10.4); MONOCYTE # 0.8 10^3/ul (0.3-0.9); MONOCYTES % 6.9 % (0.0-11.0); NEUTROPHIL # 6.4 10^3/ul (1.6-7.5); NEUTROPHILS % 54.4 % (39.0-77.0); PLATELET COUNT 370 10^3/UL (140-415); RED BLOOD COUNT 4.91 10^6/ul (4.70-6.10); RED CELL DISTRIBUTION WIDTH 15.8 % (11.5-14.5); WHITE BLOOD COUNT 11.8 10^3/ul (4.8-10.8)
[2016-09-15 18:27] LABS: INR 0.96; PROTIME 12.8 Sec (12.2-14.2)
[2016-09-15 18:28] LABS: PARTIAL THROMBOPLASTIN TIME 30.4 Sec (25.0-35.0)
[2016-09-15 18:30] LABS: ALBUMIN 4.6 g/dl (3.3-4.9); ALBUMIN/GLOBULIN RATIO 1.39; BILIRUBIN,INDIRECT 0.3 mg/dl (0-1.1); BILIRUBIN,TOTAL 0.3 mg/dl (0.2-1.3); CALCIUM 9.2 mg/dl (8.4-10.2); CREATININE 0.59 mg/dl (0.61-1.24); POTASSIUM 3.6 mmol/L (3.5-5.1); TOTAL PROTEIN 7.9 g/dl (6.1-8.1)
[2016-09-15] MEDS ORDERED: ONDANSETRON 4 MG INJ IV PRN ×2 (19:30→20:30)
[2016-09-15] MEDS: SOD CHLORIDE 0.9% 1,000 ML IV SCH (20:03)
[2016-09-15] MEDS ORDERED: NACL 0.9% 3 ML SYG IV SCH (20:30)
[2016-09-15] MEDS: ENOXAPARIN 40 MG/0.4 ML SYG SC SCH (20:30)
[2016-09-15] MEDS ORDERED: HYDROmorphONE 2 MG TAB PO PRN (20:30)
[2016-09-15] MEDS ORDERED: LIDOCAINE 1% (MPF) 5 ML VIAL SC ONE (20:30)
[2016-09-15] MEDS ORDERED: ACETAMINOPHEN 325 MG TAB PO PRN (20:30)
[2016-09-15] MEDS ORDERED: MEROPENEM 1 GM/100 ML (PMX) 100 ML IVPB SCH (22:00)
--- NOTE | 2016-09-16 01:22 | HP ---
Date/Time of Note Date/Time of Note DATE: 09/16/16 TIME: :18 Assessment/Plan VTE Prophylaxis VTE Prophylaxis Intervention: LMWH Assessment/Plan Chief Complaint/Hosp Course This is a 18-year-old male being admitted to the [facility] floor for: 1. UTI: Patient has a history of recurrent UTIs, culture was positive for Klebsiella ESBL which is sensitive to meropenem. Will start patient on meropenem, request PICC line insertion as patient will likely need treatment for extended period of time. 2. History of spina bifida with quadriplegia: Unchanged continue to monitor 3. History of hydrocephalus status post V-P shunt with multiple revisions: Stable patient currently not complaining of any headaches or neurological symptoms. 4 Chronic pain syndrome: Was given p.o. Dilaudid for his pain, will be consultation for pain management DVT and GI prophylaxis: Lovenox, Protonix Problems: HPI/ROS Admit Date/Time Admit Date/Time Hx of Present Illness Chief complaint: Abdominal pain 26-year-old male history of spina bifida, chronic pain syndrome, recurrent UTIs who presents to the emergency room complaining of bladder pain, abdominal pain and flank pain. The patient was seen here roughly 1 week ago for a UTI and given an antibiotic. He describes persistence of symptoms. He is asking for narcotic pain medication. No fevers. No chest pain or shortness of breath. Allergies: Multiple allergies please see EMR Medications: See mar ROS Const: As per HPI Eyes : No pain discharge or redness or change in visual acuity ENT: No pain, sore throat, congestion, congestion, dysphagia or discharge Respiratory: No shortness of breath, cough, sputum, wheezing, or pleuritic pain Cardiovascular: No chest pain, palpitation, PND, or edema GI : no change in appetite, abdominal pain, nausea, vomiting, diarrhea, constipation, or change in the color his stool Genitourinary: As per Musculoskeletal: No joint pain, back pain, neck pain, restricted range of motion in neck or joints Skin: No rash, bruising or hives Neuro: No headache, dizziness, syncope, seizure, focal weakness Endocrine: No polyuria, polydipsia, temperature intolerance Psych: No hallucination, depression, anxiety or suicidal ideation PMH/Family/Social Past Medical History History of spina bifida with quadriplegia, History of hydrocephalus status post V-P shunt with multiple revisions Recurrent UTI Neurogenic Bladder Chronic pain syndrome. Chronic right lower extremity wound. Past Surgical History [place] shunt Past Surgical Hx: other Family History Significant Family History: no pertinent family hx Social History Alcohol Use: occasionally Smoking Status: Current every day smoker Exam/Review of Systems Vital Signs Vitals Vital Signs Date Time Temp Pulse Resp B/P Pulse Ox O2 Delivery O2 Flow Rate FiO2 09/15/16 23:00 98.0 72 17 125/58 98 Room Air Exam Exam General: Patient is well-developed well-nourished The patient is alert oriented -3 lying comfortably in bed. HEENT: Atraumatic, normocephalic. The pupils are equal, round and reactive. Extraocular motor are intact Neck: Supple with full range of motion. No rigidity or meningismus Chest: Nontender Lungs: Clear to auscultation bilaterally no crackles rales or wheezing Heart: Normal S1-S2, Regular rhythm and rate. No murmur, S3, or S4 Abdomen: Soft, mild tenderness to palpation suprapubic area, normal bowel sounds Extremities: motor exam consistent with baseline weakness to bilateral lower extremities, no cerebellar signs Neurologic:Alert and oriented,, normal speech, motor exam consistent with baseline weakness to bilateral lower extremities, no cerebellar signs Labs Result Diagram: 09/15/16 17509/15/16 175 Medications Medications Current Medications Sodium Chloride (NS) 1,000 ml @ 75 mls/hr [id number] IV ; Start 09/15/16 at 20:03 Ondansetron HCl (Zofran Inj) 4 mg Q6H PRN IV NAUSEA AND/OR VOMITING; Start at 20:30 Acetaminophen (Tylenol Tab) 650 mg Q6H PRN PO PAIN LEVEL 1-3 OR FEVER; Start at 20:30 Pantoprazole (Protonix Tab) 40 mg DAILY@06 PO ; Start 09/16/16 at 06:00 Enoxaparin Sodium (Lovenox) 40 mg DAILY SC ; Start 09/15/16 at 20:30 Hydromorphone HCl 2 mg 2 mg Q4H PRN PO PAIN Last administered on 09/16/16t 00: 42; Admin Dose 2 MG; Start 09/15/16 at 20:30 Meropenem (Merrem 1 Gm/100 ml (Pmx)) 100 ml @ 200 mls/hr Q8 IVPB ; Start at 06:00 REAGAN LAW Sep 16, 2016 01:22
[2016-09-16] MEDS: MEROPENEM 1 GM/100 ML (PMX) 100 ML IVPB SCH ×3 (05:22→22:35)
[2016-09-16 06:30] VITALS: TEMP 98.1
[2016-09-16] MEDS: PANTOPRAZOLE (EC) 40 MG TAB PO SCH (06:43)
[2016-09-16] MEDS: SOD CHLORIDE 0.9% 1,000 ML IV SCH ×3 (06:45→22:43)
[2016-09-16 08:30] VITALS: Ht 167.6 cm; Wt 100.0 kg
[2016-09-16] MEDS: ENOXAPARIN 40 MG/0.4 ML SYG SC SCH (09:00)
[2016-09-16 09:18] VITALS: BP 162/90; RESP 18
[2016-09-16] MEDS: morphine 2 MG INJ IV PRN ×4 (11:39→23:06)
--- NOTE | 2016-09-16 16:32 | RADRPT ---
Echocardiogram Report Patient Name: RUTH REDD Gender: Male Date: 1990 Study Date: 16-Sep-2016 Circular Knitter Helper: Yris Wilhelm RDCS Location: 601 Ref. Physician: GIOVANI TAVERAS Quality: Adequate Procedures: Transthoracic echocardiogram with complete 2D, M-Mode, and doppler examination. Indications: Chest Pain. 2D/M Mode Doppler Measurement Value Normal Ranges Measurement Value Normal Ranges LVIDd 2D 3.9 3.5 - 5.6 cm AV Peak Julio 1.3 m/sec LVIDs 2D 2.4 2.1 - 4.1 cm AV Peak PG 7.2 mmHg LVPWd 2D 1.2 0.6 - 1.1 cm LVOT Mean Julio 0.6 m/sec IVSd 2D 1.2 0.6 - 1.1 cm LVOT Mean PG 1.9 mmHg AoR Diam 2D 3.0 2.0 - 3.7 cm LVOT Peak Julio 0.9 m/sec EDV 2D 66.1 cm3 LVOT Peak PG 3.4 mmHg ESV 2D 14.4 cm3 LVOT VTI 17.1 cm LA Dimen 2D 3.2 2.3 - 4.0 cm MV E Peak Julio 1.0 m/sec MV A Peak Julio 1.0 m/sec MV E/A 1.0 MV Decel Time 264 msec MV Decel [place] 4 MV E/A 1.0 TR Peak Julio 2.4 m/sec TR Peak PG 22.3 mmHg RVSP 32.3 mmHg Findings Left Ventricle: Mild concentric left ventricular hypertrophy. Ejection fraction is visually estimated at 60 %. Tissue Doppler/Mitral Doppler indices are consistent with impaired relaxation (Stage I diastolic dysfunction). Right Ventricle: Normal right ventricular size. Normal right ventricular systolic function. Left Atrium: The left atrium is normal in size. Right Atrium: The right atrium is normal in size. Mitral Valve: Normal appearance of the mitral valve. Normal appearance and function of the mitral valve with trace physiologic regurgitation. Trace mitral regurgitation. Aortic Valve: Aortic valve opens normally. Tricuspid Valve: Normal appearance of the tricuspid valve. Tricuspid valve not well visualized. No evidence of tricuspid regurgitation. Pulmonic Valve: Pulmonic valve not well visualized. There is trace to mild pulmonic regurgitation. Pericardium: Normal pericardium with no significant pericardial effusion. Aorta: Normal aortic root. IVC: Normal size and normal respiratory collapse consistent with normal right atrial pressure. Pulmonary Artery: Normal pulmonary artery size. Conclusions 1.Mild concentric left ventricular hypertrophy. Ejection fraction is visually estimated at 60 %. Tissue Doppler/Mitral Doppler indices are consistent with impaired relaxation (Stage I diastolic dysfunction). 2.Aortic valve opens normally. 3.Normal appearance of the mitral valve. Normal appearance and function of the mitral valve with trace physiologic regurgitation. Trace mitral regurgitation. 4.Normal appearance of the tricuspid valve. Tricuspid valve not well visualized. No evidence of tricuspid regurgitation. Electronically Signed By: Solomon Maria 16-Sep-2016 16:31:51 -0700 Patient Name: RUTH REDD Study Date: 16-Sep-2016 [id number]
--- NOTE | 2016-09-16 17:45 | CONS ---
DATE OF ADMISSION: 09/15/2016 DATE OF CONSULTATION: 09/16/2016 TYPE OF CONSULTATION: Infectious Disease. REASON FOR CONSULTATION: Antibiotic management. HISTORY OF PRESENT ILLNESS: Kunal Dick is a very pleasant 26-year-old male, well known to us from numerous admissions, who is paraplegic and comes in with recurrent urinary tract infection. He has had recurrent UTIs. Cultures were positive for Klebsiella and ESBL, which were sensitive to meropenem. His past problems include: 1. History of spina bifida. 2. Chronic pain syndrome. 3. Recurrent UTIs. He has neurogenic bladder, and he does not self-catheterize. He was seen appro ximately 1 week ago for UTI, given antibiotics, but has had persistent symptoms of back pain, abdomi nal pain, flank pain, and bladder pain. PAST MEDICAL HISTORY: Operations as outlined. 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 ALLERGIES: NONE TO PENICILLIN, SULFA OR FOODS. MEDICATIONS: Per chart review. REVIEW OF SYSTEMS: As per HPI. PHYSICAL EXAMINATION: GENERAL: The patient is a well-developed, well-nourished male, who is alert, responsive, in no acut e distress. VITAL SIGNS: Stable. He is afebrile. SKIN: Without generalized rash. HEENT: Within normal limits. NECK: Supple. LYMPH NODES: None palpable. CHEST: Decreased breath sounds at the bases. HEART: Without murmur or gallop. ABDOMEN: Soft, nontender, without organosplenomegaly or masses. He has mild tenderness to palpatio n in the suprapubic area. EXTREMITIES: He has some atrophy. He has bilateral lower extremity paraplegia. RECTAL AND GENITAL: Exam deferred. NEUROLOGIC: Weakness to both bilateral lower extremities. ANCILLARY LABORATORY DATA: White count 11.8, H and H 12.9 and 41.8, platelet count 370,000. BUN an d creatinine 17/0.59. Glucose is 88. IMPRESSION AND PLAN: Patient is currently on meropenem. Urine is growing gram-negative rods. If i t is Klebsiella pneumoniae, we can switch him to ertapenem, which will be just as effective. I will dictate my findings to the hospitalist. Dictated By: DIAN ROUSSEAU MD, JD/BRADY Conf#: [id number] DID#: [id number]
[2016-09-16 20:00] VITALS: BP 143/83; RESP 18
[2016-09-17] MEDS: PANTOPRAZOLE (EC) 40 MG TAB PO SCH (06:00)
[2016-09-17] MEDS: morphine 2 MG INJ IV PRN ×6 (06:04→23:43)
[2016-09-17] MEDS: MEROPENEM 1 GM/100 ML (PMX) 100 ML IVPB SCH (06:04)
[2016-09-17 07:26] VITALS: BP 173/82; RESP 20
[2016-09-17] MEDS: ENOXAPARIN 40 MG/0.4 ML SYG SC SCH (09:00)
[2016-09-17] MEDS: SOD CHLORIDE 0.9% 1,000 ML IV SCH (11:30)
--- NOTE | 2016-09-17 12:36 | PN ---
DATE: 09/17/2016 SUBJECTIVE: No changes overnight. No fevers. The patient is lying comfortably in bed. Denies [place] n. No labs this morning. MICROBIOLOGY: Urine culture growing Klebsiella ESBL. ANTIMICROBIALS: The patient is on meropenem. PHYSICAL EXAMINATION: GENERAL: Obese, well-developed, middle-aged man who is awake, in no distress. HEENT: Head atraumatic, normocephalic. Sclerae anicteric. Buccal mucosa dry. NECK: Obese. CHEST: Rise symmetrical. Breath sounds diminished to bases. HEART: S1, S2. ABDOMEN: Soft, bowel sounds present. EXTREMITIES: With bilateral edema. Multiple chronic pressure sores. ASSESSMENT: 1. Recurrent Klebsiella extended-spectrum beta-lactamase urinary tract infection. 2. Morbid obesity. 3. History of hydrocephalus, status post ventriculoperitoneal shunt placement. 4. History of spina bifida. PLAN: The patient remains stable. We will change antibiotics to Invanz once daily. Dictated By: PAT RODRIGUEZ TAR HEEL for DIAN AVILA/BRADY Conf#: [id number] DID#: [id number]
[2016-09-17] MEDS: ERTAPENEM SODIUM 1 GM in SOD CHLORIDE 0.9% 100 ML IVPB SCH (14:35)
--- NOTE | 2016-09-17 15:12 | PN ---
Date/Time of Note Date/Time of Note DATE: 09/17/16 TIME: 15:08 Assessment/Plan Lines/Catheters IV Catheter Type (from Nrsg): Peripheral IV Urinary Cath still in place: No Assessment/Plan Chief Complaint/Hosp Course Assessment and plan 1. UTI with Klebsiella pneumonia ESBL. On antibiotics per ID. Afebrile at present. Monitor for clinical improvement. 2. History of spina bifida with quadriplegia. Turn every 2 hours and as needed for pressure ulcer prevention 3. 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 No obvious neurological deficits at this time. Continue to monitor. 4. Chronic pain syndrome. Continue with pain management. Will. Awaiting pain management consultation DVT prophylaxis: Lovenox GERD prophylaxis: Protonix Disposition plan: Continue antibiotics per ID. Await for clinical improvement. Discharged in medically stable and cleared by consultants Discussed plan of care with Ramo Problems: Subjective 24 Hr Interval Summary Free Text/Dictation Still reports having some lower abdominal pain Exam/Review of Systems Vital Signs Vitals Vital Signs Date Time Temp Pulse Resp B/P Pulse Ox O2 Delivery O2 Flow Rate FiO2 09/17/16 07:26 98.0 80 20 173/82 98 09/16/16 08:30 Room Air Intake and Output 09/16/16 09/16/16 09/17/16 15:00 23:00 07:00 Intake Total 2090 ml 1790 ml Balance 2090 ml 1790 ml Exam Constitutional: alert, oriented Eyes: other (Disconjugate gaze) Neck: No jvd Respiratory: clear to auscultation, normal air movement Cardiovascular: other Gastrointestinal: non-tender (Regular rate), soft Extremities: edema Neurological: nl mental status, nl speech Results Result Diagram: 09/15/16175209/15/161752 Medications Medications Current Medications Sodium Chloride (NS) 1,000 ml @ 75 mls/hr [id number] IV Last administered on 09/17t 11:30; Admin Dose 75 MLS/HR; Start 09/15/16 at 20:03 Ondansetron HCl (Zofran Inj) 4 mg Q6H PRN IV NAUSEA AND/OR VOMITING; Start at 20:30 Acetaminophen (Tylenol Tab) 650 mg Q6H PRN PO PAIN LEVEL 1-3 OR FEVER; Start at 20:30 Pantoprazole (Protonix Tab) 40 mg DAILY@06 PO Last administered on 09/16/16 06 :43; Admin Dose 40 MG; Start 09/16/16 at 06:00 Enoxaparin Sodium (Lovenox) 40 mg DAILY SC ; Start 09/15/16 at 20:30 Morphine Sulfate 2 mg 2 mg Q3H PRN IV for pain Last administered on 09/17/16 14:35; Admin Dose 2 MG; Start 09/16/16 at 11:30 Ertapenem/Sodium Chloride (Invanz/NS) 100 ml @ 200 mls/hr Q24H IVPB Last administered on 09/17/16 14:35; Admin Dose 200 MLS/HR; Start 09/17/16 at 14:00 GIOVANI TAVERAS Sep 17, 2016 15:12
--- NOTE | 2016-09-17 18:14 | RADRPT ---
PROCEDURE: Ultrasound guidance for placement of needle in right upper extremity vein. CLINICAL INDICATION: Venous access. TECHNIQUE: Limited sonography of the right upper extremity was performed. Ultrasound images were recorded and stored in the patient's medical record. COMPARISON: None. FINDINGS: The ultrasound images demonstrate a patent right upper extremity vein. The PICC line was inserted b y the PICC line nurse. IMPRESSION: 1. Ultrasound guidance for a needle placement in a right upper extremity vein. 2. The visualized right upper extremity vein is patent. RPTAT: QQ .Avery Vizcarra MD, MD Date Time Electronically viewed and signed by .Avery Vizcarra MD, MD on 09/17/2016 18:14 .R/
--- NOTE | 2016-09-17 18:30 | RADRPT ---
PROCEDURE: XR Chest. CLINICAL INDICATION: Check PICC line position. TECHNIQUE: Single frontal view. COMPARISON: 06/04/2016. FINDINGS: There is a right arm PICC line with the tip in the right internal jugular vein. The lungs are clear . There is a left sided PROTECTIVE SIGNAL OPERATIONS SUPERVISOR shunt catheter. The heart size is normal. There is no pleural effusion. There is no pneumothorax. IMPRESSION: 1. The right arm PICC line tip is in the right internal jugular vein and needs to be repositioned. The PICC line nurse was informed. 2. Left sided PROTECTIVE SIGNAL OPERATIONS SUPERVISOR shunt catheter. RPTAT: QQ .Avery Vizcarra MD, MD Date Time Electronically viewed and signed by .Avery Vizcarra MD, MD on 09/17/2016 18:30 .R/
--- NOTE | 2016-09-17 18:31 | RADRPT ---
PROCEDURE: XR Chest. CLINICAL INDICATION: Check PICC line position. TECHNIQUE: Single frontal view. COMPARISON: Prior study done earlier the same day. FINDINGS: There is a right arm PICC line with the tip in the lower superior vena cava. The lungs are clear. The heart size is normal. There is a left sided TRANSFORMER MECHANIC shunt catheter. There is no pleural effusion. There is no pneumothorax. IMPRESSION: 1. Satisfactory position of right arm PICC line. 2. Left sided TRANSFORMER MECHANIC shunt catheter. 3. Otherwise normal chest radiograph. RPTAT: QQ .Avery Vizcarra MD, MD Date Time Electronically viewed and signed by .Avery Vizcarra MD, MD on 09/17/2016 18:31 .R/
--- NOTE | 2016-09-17 18:31 | RADRPT ---
PROCEDURE: XR Chest. CLINICAL INDICATION: Check PICC line position. TECHNIQUE: Single frontal view. COMPARISON: Prior study done earlier the same day. FINDINGS: There is a right arm PICC line with the tip in the upper superior vena cava. The lungs are clear. The left sided CAR PARKER shunt catheter is noted. The heart size is normal. There is no pleural effusion. There is no pneumothorax. IMPRESSION: 1. The right arm PICC line should be advanced 3 cm. 2. CAR PARKER shunt catheter on the left. 3. Otherwise normal chest radiograph. RPTAT: QQ .Avery Vizcarra MD, Date Time Electronically viewed and signed by .Avery Vizcarra MD, on 09/17/2016 18:31 .R/
[2016-09-17 19:16] VITALS: BP 159/82; RESP 20
[2016-09-18] MEDS: morphine 2 MG INJ IV PRN ×6 (02:40→21:46)
[2016-09-18] MEDS: SOD CHLORIDE 0.9% 1,000 ML IV SCH ×2 (02:44→17:07)
[2016-09-18] MEDS: PANTOPRAZOLE (EC) 40 MG TAB PO SCH (05:12)
[2016-09-18 06:04] LABS: ADD SCAN DIFF NO
[2016-09-18 06:10] LABS: BASOPHILS % 0.1 % (0.0-2.0); EOSINOPHILS # 0.5 10^3/ul (0.0-0.5); EOSINOPHILS % 5.9 % (0.0-7.0); HEMATOCRIT 36.4 % (42.0-52.0); HEMOGLOBIN 11.3 g/dl (14.0-18.0); LYMPHOCYTES % 38.2 % (15.0-51.0); MEAN CORPUSCULAR HEMOGLOBIN 25.9 pg (29.0-33.0); MEAN CORPUSCULAR VOLUME 83.3 fl (82.0-101.0); MEAN PLATELET VOLUME 9.9 fl (7.4-10.4); MONOCYTE # 0.7 10^3/ul (0.3-0.9); MONOCYTES % 8.9 % (0.0-11.0); NEUTROPHIL # 3.6 10^3/ul (1.6-7.5); NEUTROPHILS % 46.6 % (39.0-77.0); PLATELET COUNT 305 10^3/UL (140-415); RED BLOOD COUNT 4.37 10^6/ul (4.70-6.10); RED CELL DISTRIBUTION WIDTH 15.1 % (11.5-14.5); WHITE BLOOD COUNT 7.7 10^3/ul (4.8-10.8)
[2016-09-18 07:07] LABS: CALCIUM 8.6 mg/dl (8.4-10.2); CREATININE 0.63 mg/dl (0.61-1.24); POTASSIUM 3.7 mmol/L (3.5-5.1)
[2016-09-18 07:53] VITALS: BP 159/88; RESP 18
[2016-09-18] MEDS: ENOXAPARIN 40 MG/0.4 ML SYG SC SCH (08:35)
--- NOTE | 2016-09-18 13:09 | CONS ---
Date/Time of Note Date/Time of Note DATE: 09/18/16 TIME: 13:08 Assessment/Plan Assessment/Plan Chief Complaint/Hosp Course SUBJECTIVE: No changes overnight. No fevers. The patient is sleeping, no fevers, nad. MICROBIOLOGY: Urine culture growing Klebsiella ESBL. ANTIMICROBIALS: Invanz. PHYSICAL EXAMINATION: GENERAL: Obese, well-developed, middle-aged man who is awake, in no distress. HEENT: Head atraumatic, normocephalic. Sclerae anicteric. Buccal mucosa dry. NECK: Obese. CHEST: Rise symmetrical. Breath sounds diminished to bases. HEART: S1, S2. ABDOMEN: Soft, bowel sounds present. EXTREMITIES: With bilateral edema. Multiple chronic pressure sores. ASSESSMENT: 1. Recurrent Klebsiella extended-spectrum beta-lactamase urinary tract infection. 2. Morbid obesity. 3. History of hydrocephalus, status post ventriculoperitoneal shunt placement. 4. History of spina bifida. PLAN: The patient remains stable. Continue abx for 7 more days, consider PT DW staff Problems: Consultation Date/Type/Reason Admit Date/Time Sep 15, 2016 at 19:06 Initial Consult Date Type of Consultation: ID Exam/Review of Systems Vital Signs Vitals Vital Signs Date Time Temp Pulse Resp B/P Pulse Ox O2 Delivery O2 Flow Rate FiO2 09/18/16 07:53 98.7 71 18 159/88 96 09/16/16 08:30 Room Air Intake and Output 09/17/16 09/17/16 09/18/16 15:00 23:00 07:00 Intake Total 250 ml 1840 ml 1590 ml Balance 250 ml 1840 ml 1590 ml Results Result Diagram: 09/18/16 0515 09/18/16 0515 Results 24 hrs Laboratory Tests Test 09/18/16 05:15 White Blood Count 7.7 # Red Blood Count 4.37 L Hemoglobin 11.3 L Hematocrit 36.4 L Mean Corpuscular Volume 83.3 Mean Corpuscular Hemoglobin 25.9 L Mean Corpuscular Hemoglobin Concent 31.0 L Red Cell Distribution Width 15.1 H Platelet Count 305 Mean Platelet Volume 9.9 Neutrophils % 46.6 Lymphocytes % 38.2 Monocytes % 8.9 Eosinophils % 5.9 Basophils % 0.1 Nucleated Red Blood Cells % 0.0 Neutrophils # 3.6 Lymphocytes # 3.0 H Monocytes # 0.7 Eosinophils # 0.5 Basophils # 0.0 Nucleated Red Blood Cells # 0.0 Sodium Level 138 Potassium Level 3.7 Chloride Level 105 Carbon Dioxide Level 26 Anion Gap 11 Blood Urea Nitrogen 14 Creatinine 0.63 Glucose Level 89 Calcium Level 8.6 Medications Medications Current Medications Sodium Chloride (NS) 1,000 ml @ 75 mls/hr [id number] IV Last administered on 09/18 02:44; Admin Dose 75 MLS/HR; Start 09/15/16 at 20:03 Ondansetron HCl (Zofran Inj) 4 mg Q6H PRN IV NAUSEA AND/OR VOMITING; Start at 20:30 Acetaminophen (Tylenol Tab) 650 mg Q6H PRN PO PAIN LEVEL 1-3 OR FEVER; Start at 20:30 Pantoprazole (Protonix Tab) 40 mg DAILY@06 PO Last administered on 09/18/16 05 :12; Admin Dose 40 MG; Start 09/16/16 at 06:00 Enoxaparin Sodium (Lovenox) 40 mg DAILY SC ; Start 09/15/16 at 20:30 Morphine Sulfate 2 mg 2 mg Q3H PRN IV for pain Last administered on 09/18/16 11:13; Admin Dose 2 MG; Start 09/16/16 at 11:30 Ertapenem/Sodium Chloride (Invanz/NS) 100 ml @ 200 mls/hr Q24H IVPB Last administered on 09/17/16 14:35; Admin Dose 200 MLS/HR; Start 09/17/16 at 14:00 IV Flush (NS 10 ml) 10 ml PRN PRN IV IV PROTOCOL Last administered on 11:17; Admin Dose 10 ML; Start 09/17/16 at 18:00 PAT RODRIGUEZ NP Sep 18, 2016 13:09
[2016-09-18] MEDS: ERTAPENEM SODIUM 1 GM in SOD CHLORIDE 0.9% 100 ML IVPB SCH (14:47)
--- NOTE | 2016-09-18 14:58 | PN ---
Date/Time of Note Date/Time of Note DATE: 09/18/16 TIME: 14:54 Assessment/Plan VTE Prophylaxis VTE Prophylaxis Intervention: LMWH Lines/Catheters IV [facility] PICC Line Urinary Cath still in place: No Assessment/Plan Chief Complaint/Hosp Course Assessment and plan 1. UTI with Klebsiella pneumonia ESBL. On antibiotics per ID. Afebrile at present. Appears to be improving. Will plan with welfare case worker for outpatient IV antibiotics 2. History of spina bifida with quadriplegia. Turn every 2 hours and as needed for pressure ulcer prevention 3. History of hydrocephalus status post FOOT MITER OPERATOR shunt. No obvious neurological deficits at this time. Continue to monitor. 4. Chronic pain syndrome. Continue with pain management. DVT prophylaxis: Lovenox GERD prophylaxis: Protonix Disposition plan: Follow-up with case management for outpatient antibiotics. Appears to be clinically improving. Anticipate discharge within the next 24-48 hours if medically stable and cleared by consult Discussed plan of care with Rahi Problems: Subjective 24 Hr Interval Summary Free Text/Dictation Resting at this time. No apparent distress seen Exam/Review of Systems Vital Signs Vitals Vital Signs Date Time Temp Pulse Resp B/P Pulse Ox O2 Delivery O2 Flow Rate FiO2 09/18/16 07:53 98.7 71 18 159/88 96 09/16/16 08:30 Room Air Intake and Output 09/17/16 09/17/16 09/18/16 15:00 23:00 07:00 Intake Total 250 ml 1840 ml 1590 ml Balance 250 ml 1840 ml 1590 ml Exam Constitutional: alert, oriented Head: normocephalic Eyes: other (Disconjugate gaze) Neck: supple, No jvd Respiratory: clear to auscultation Cardiovascular: regular rate and rhythm Gastrointestinal: non-tender, soft Musculoskeletal: nl extremities to inspection Extremities: edema (Minimal bilateral lower extremities) Neurological: nl mental status, nl speech Skin: other (Previous pressure ulcer) Results Result Diagram: 09/18/1615 09/18/16 0515 Results 24 hrs Laboratory Tests Test 09/18/16 05:15 White Blood Count 7.7 # Red Blood Count 4.37 L Hemoglobin 11.3 L Hematocrit 36.4 L Mean Corpuscular Volume 83.3 Mean Corpuscular Hemoglobin 25.9 L Mean Corpuscular Hemoglobin Concent 31.0 L Red Cell Distribution Width 15.1 H Platelet Count 305 Mean Platelet Volume 9.9 Neutrophils % 46.6 Lymphocytes % 38.2 Monocytes % 8.9 Eosinophils % 5.9 Basophils % 0.1 Nucleated Red Blood Cells % 0.0 Neutrophils # 3.6 Lymphocytes # 3.0 H Monocytes # 0.7 Eosinophils # 0.5 Basophils # 0.0 Nucleated Red Blood Cells # 0.0 Sodium Level 138 Potassium Level 3.7 Chloride Level 105 Carbon Dioxide Level 26 Anion Gap 11 Blood Urea Nitrogen 14 Creatinine 0.63 Glucose Level 89 Calcium Level 8.6 Medications Medications Current Medications Sodium Chloride (NS) 1,000 ml @ 75 mls/hr [id number] IV Last administered on 09/18 02:44; Admin Dose 75 MLS/HR; Start 09/15/16 at 20:03 Ondansetron HCl (Zofran Inj) 4 mg Q6H PRN IV NAUSEA AND/OR VOMITING; Start at 20:30 Acetaminophen (Tylenol Tab) 650 mg Q6H PRN PO PAIN LEVEL 1-3 OR FEVER; Start at 20:30 Pantoprazole (Protonix Tab) 40 mg DAILY@06 PO Last administered on 09/18/16 05 :12; Admin Dose 40 MG; Start 09/16/16 at 06:00 Enoxaparin Sodium (Lovenox) 40 mg DAILY SC ; Start 09/15/16 at 20:30 Morphine Sulfate 2 mg 2 mg Q3H PRN IV for pain Last administered on 09/18/16 14:42; Admin Dose 2 MG; Start 09/16/16 at 11:30 Ertapenem/Sodium Chloride (Invanz/NS) 100 ml @ 200 mls/hr Q24H IVPB Last administered on 09/18/16 14:47; Admin Dose 200 MLS/HR; Start 09/17/16 at 14:00 IV Flush (NS 10 ml) 10 ml PRN PRN IV IV PROTOCOL Last administered on 11:17; Admin Dose 10 ML; Start 09/17/16 at 18:00 GIOVANI TAVERAS Sep 18, 2016 14:58
[2016-09-18 19:29] VITALS: BP 174/94; RESP 20
[2016-09-18 20:09] VITALS: BP 173/91; RESP 20
[2016-09-18 20:30] VITALS: BP 162/82; PULSE 78
[2016-09-18 22:41] VITALS: BP 166/84
[2016-09-19] MEDS ORDERED: hydrALAzine 20 MG INJ IV PRN
[2016-09-19] MEDS: SOD CHLORIDE 0.9% 1,000 ML IV SCH ×2 (05:47→17:23)
[2016-09-19] MEDS: morphine 2 MG INJ IV PRN ×2 (05:48→09:27)
[2016-09-19] MEDS: PANTOPRAZOLE (EC) 40 MG TAB PO SCH (05:48)
[2016-09-19 05:52] VITALS: BP 164/84; PULSE 72
[2016-09-19 08:25] VITALS: BP 172/97; PULSE 70
[2016-09-19] MEDS: ENOXAPARIN 40 MG/0.4 ML SYG SC SCH (09:00)
--- NOTE | 2016-09-19 11:04 | PDOCDIS ---
Discharge Instructions DIAGNOSIS Discharge Diagnosis Klebsiella extended-spectrum beta-lactamase urinary tract infection (recurrent) CONDITION Patient Condition: Stable HOME CARE INSTRUCTIONS: Special Diet: regular FOLLOW UP/APPOINTMENTS Follow-up Plan 1. Follow up with your primary care provider in one week GIOVANI TAVERAS Sep 19, 2016 11:04
[2016-09-19] MEDS ORDERED: ERTA1VIA IV (11:10)
[2016-09-19] MEDS ORDERED: AMLODIPINE 5 MG TAB PO SCH (11:30)
[2016-09-19 11:45] VITALS: BP 148/82; PULSE 91
--- NOTE | 2016-09-19 14:04 | CONS ---
Date/Time of Note Date/Time of Note DATE: 09/19/16 TIME: 14:02 Assessment/Plan Assessment/Plan Chief Complaint/Hosp Course SUBJECTIVE: No changes overnight. No fevers. The patient is sleeping, no fevers, nad. MICROBIOLOGY: Urine culture growing Klebsiella ESBL. ANTIMICROBIALS: Invanz. PHYSICAL EXAMINATION: GENERAL: Obese, well-developed, middle-aged man who is awake, in no distress. HEENT: Head atraumatic, normocephalic. Sclerae anicteric. Buccal mucosa dry. NECK: Obese. CHEST: Rise symmetrical. Breath sounds diminished to bases. HEART: S1, S2. ABDOMEN: Soft, bowel sounds present. EXTREMITIES: With bilateral edema. Multiple chronic pressure sores. ASSESSMENT: 1. Recurrent Klebsiella extended-spectrum beta-lactamase urinary tract infection. 2. Morbid obesity. 3. History of hydrocephalus, status post ventriculoperitoneal shunt placement. 4. History of spina bifida. PLAN: The patient remains stable. Continue abx for 6 more days DW staff Problems: Consultation Date/Type/Reason Admit Date/Time Sep 15, 2016 at 19:06 Type of Consultation: ID Exam/Review of Systems Vital Signs Vitals Vital Signs Date Time Temp Pulse Resp B/P Pulse Ox O2 Delivery O2 Flow Rate FiO2 09/19/16 11:45 91 148/82 09/18/16 20:09 98.6 20 93 09/16/16 08:30 Room Air Intake and Output 09/18/16 09/18/16 09/19/16 15:00 23:00 07:00 Intake Total 1830 ml 1240 ml Balance 1830 ml 1240 ml Results Result Diagram: 09/18/16 0515 09/18/16 0515 Medications Medications Current Medications Sodium Chloride (NS) 1,000 ml @ 75 mls/hr [id number] IV Last administered on 09/19t 05:47; Admin Dose 75 MLS/HR; Start 09/15/16 at 20:03 Ondansetron HCl (Zofran Inj) 4 mg Q6H PRN IV NAUSEA AND/OR VOMITING; Start at 20:30 Acetaminophen (Tylenol Tab) 650 mg Q6H PRN PO PAIN LEVEL 1-3 OR FEVER; Start at 20:30 Pantoprazole (Protonix Tab) 40 mg DAILY@06 PO Last administered on 09/19/16 05 :48; Admin Dose 40 MG; Start 09/16/16 at 06:00 Enoxaparin Sodium 40 mg 40 mg DAILY SC ; Start 09/15/16 at 20:30 Ertapenem/Sodium Chloride (Invanz/NS) 100 ml @ 200 mls/hr Q24H IVPB Last administered on 09/18/16 14:47; Admin Dose 200 MLS/HR; Start 09/17/16 at 14:00 IV Flush (NS 10 ml) 10 ml PRN PRN IV IV PROTOCOL Last administered on 18:41; Admin Dose 10 ML; Start 09/17/16 at 18:00 Hydralazine HCl (Apresoline) 10 mg Q4H PRN IV ELEVATED SYSTOLIC BP Last administered on 09/19/16 09:27; Admin Dose 10 MG; Start 09/19/16 at 00:00 Amlodipine Besylate (Norvasc) 5 mg DAILY PO Last administered on 09/19/16 11: 44; Admin Dose 5 MG; Start 09/19/16 at 11:30 PAT RODRIGUEZ NP Sep 19, 2016 14:04
[2016-09-19] MEDS: ERTAPENEM SODIUM 1 GM in SOD CHLORIDE 0.9% 100 ML IVPB SCH (14:54)
--- NOTE | 2016-09-19 16:10 | PN ---
Date/Time of Note Date/Time of Note DATE: 09/19/16 TIME: 16:08 Assessment/Plan VTE Prophylaxis VTE Prophylaxis Intervention: SCD's Lines/Catheters IV Catheter Type (from Nrs): PICC Line Urinary Cath still in place: No Assessment/Plan Chief Complaint/Hosp Course Assessment and plan 1. UTI with Klebsiella pneumonia ESBL. On antibiotics per ID. Afebrile at present. Appears to be improving. Plan for antibiotics at home. Awaiting self -catheterization supplies 2. History of spina bifida with quadriplegia. Turn every 2 hours and as needed for pressure ulcer prevention 3. History of hydrocephalus status post CIAIO LUMITE INJECTOR shunt. No obvious neurological deficits at this time. Continue to monitor. 4. Chronic pain syndrome. Continue with pain management. DVT prophylaxis: Lovenox GERD prophylaxis: Protonix Disposition plan: Plan for outpatient antibiotic therapy as well as self- catheterization supplies. Discharge when supplies available Discussed plan of care with Rahi Problems: Subjective 24 Hr Interval Summary Free Text/Dictation no s/s of distress. 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 II-XII 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, nl mental status Results Result Diagram: 09/18/1651409/18/16514 Medications Medications Current Medications Sodium Chloride (NS) 1,000 ml @ 75 mls/hr [id number] IV Last administered on 09/19t 05:47; Admin Dose 75 MLS/HR; Start 09/15/16 at 20:03 Ondansetron HCl (Zofran Inj) 4 mg Q6H PRN IV NAUSEA AND/OR VOMITING; Start at 20:30 Acetaminophen (Tylenol Tab) 650 mg Q6H PRN PO PAIN LEVEL 1-3 OR FEVER; Start at 20:30 Pantoprazole (Protonix Tab) 40 mg DAILY@06 PO Last administered on 09/19/16 05 :48; Admin Dose 40 MG; Start 09/16/16 at 06:00 Enoxaparin Sodium 40 mg 40 mg DAILY SC ; Start 09/15/16 at 20:30 Ertapenem/Sodium Chloride (Invanz/NS) 100 ml @ 200 mls/hr Q24H IVPB Last administered on 09/19/16 14:54; Admin Dose 200 MLS/HR; Start 09/17/16 at 14:00 IV Flush (NS 10 ml) 10 ml PRN PRN IV IV PROTOCOL Last administered on 18:41; Admin Dose 10 ML; Start 09/17/16 at 18:00 Hydralazine HCl (Apresoline) 10 mg Q4H PRN IV ELEVATED SYSTOLIC BP Last administered on 09/19/16 09:27; Admin Dose 10 MG; Start 09/19/16 at 00:00 Amlodipine Besylate (Norvasc) 5 mg DAILY PO Last administered on 09/19/16 11: 44; Admin Dose 5 MG; Start 09/19/16 at 11:30 Tramadol HCl (Ultram) 50 mg Q6 NGT ; Start 09/19/16 at 18:00 GIOVANI TAVERAS Sep 19, 2016 16:10
[2016-09-19] MEDS ORDERED: traMADol 50 MG TAB NGT SCH (18:00)
--- NOTE | 2016-09-19 18:01 | CONS ---
Date/Time of Note Date/Time of Note DATE: 09/19/16 TIME: 17:55 Assessment/Plan Assessment/Plan Additional Assessment/Plan History of spina bifida History of sepsis syndrome Urinary tract infection Pain management syndrome acute on chronic Suggest Discontinue IV pain meds switch to orals Avoid short acting Vicodin or [place], suggest Ultram no contraindications with history of spina bifida. Consultation Date/Type/Reason Admit Date/Time Sep 15, 2016 at 19:06 Date of Consultation: Sep 18, 2016 Type of Consultation: Pain management Hx of Present Illness 26-year-old gentleman well-known to me from prior hospitalization with a history of spina bifida and sepsis syndrome. The last time I saw him was in the intensive care unit for pain control . This hospitalization he presented once again with urinary tract infection and pelvic pain states his pain is throbbing 5/10 but controlled well with current IV morphine. Denies nausea vomiting chest pain shortness of breath cough or any other systemic systemic symptom. States he takes no pain control medications at home there is no past medical history of opioid use or abuse other than during hospitalization. With medication his pain is 0 during his hospitalization. There is no history of substance abuse disorders in the past, he is not bargaining for higher doses of medications or different routes of administration. His current medications are not interfering with his physical functioning his pain management is better control his mood is better his sleeping patterns are better his overall functioning is once again there is no systemic symptoms nausea vomiting fatigue shortness of breath without drowsiness. Suggest discontinue current IV morphine switch to p.o. Ultram . Constitutional: improved, no complaints Eyes: no complaints ENT: no complaints Respiratory: no complaints Cardiovascular: no complaints Gastrointestinal: no complaints Genitourinary: no complaints Musculoskeletal: no complaints Skin: no complaints Neurologic: no complaints Endocrine: no complaints Lymphatic: no complaints Psychological: nl mood/affect Immunologic: no complaints Past Surgical History Past Surgical Hx: other Social History Alcohol Use: none Smoking Status: Never smoker Drug Use: none Exam/Review of Systems Vital Signs Vitals Vital Signs Date Time Temp Pulse Resp B/P Pulse Ox O2 Delivery O2 Flow Rate FiO2 09/19/16 11:45 91 148/82 09/18/16 20:09 98.6 20 93 09/16/16 08:30 Room Air Intake and Output 09/18/16 09/18/16 09/19/16 15:00 23:00 07:00 Intake Total 1830 ml 1240 ml Balance 1830 ml 1240 ml Exam Constitutional: alert, oriented, well developed Psych: nl mood/affect, no complaints Head: atraumatic, normocephalic Eyes: EOMI, PERRL, nl conjunctiva, nl lids, nl sclera ENMT: nl external ears & nose, nl lips & teeth, nl nasal mucosa & septum Neck: non-tender, supple Respiratory: clear to auscultation, normal air movement Cardiovascular: nl pulses, regular rate and rhythm Gastrointestinal: nl liver, spleen, non-tender, soft Musculoskeletal: nl extremities to inspection, nl gait and stance Extremities: normal pulses Neurological: 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 II-XII 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, nl mental status, nl speech, nl strength Skin: nl turgor, No rash or lesions Lymph: nl lymph nodes Results Result Diagram: 09/18/1651409/18/16514 Medications Medications Current Medications Sodium Chloride (NS) 1,000 ml @ 75 mls/hr [id number] IV Last administered on 09/19 05:47; Admin Dose 75 MLS/HR; Start 09/15/16 at 20:03 Ondansetron HCl (Zofran Inj) 4 mg Q6H PRN IV NAUSEA AND/OR VOMITING; Start at 20:30 Acetaminophen (Tylenol Tab) 650 mg Q6H PRN PO PAIN LEVEL 1-3 OR FEVER; Start at 20:30 Pantoprazole (Protonix Tab) 40 mg DAILY@06 PO Last administered on 09/19/16 05 :48; Admin Dose 40 MG; Start 09/16/16 at 06:00 Enoxaparin Sodium 40 mg 40 mg DAILY SC ; Start 09/15/16 at 20:30 Ertapenem/Sodium Chloride (Invanz/NS) 100 ml @ 200 mls/hr Q24H IVPB Last administered on 09/19/16 14:54; Admin Dose 200 MLS/HR; Start 09/17/16 at 14:00 IV Flush (NS 10 ml) 10 ml PRN PRN IV IV PROTOCOL Last administered on 18:41; Admin Dose 10 ML; Start 09/17/16 at 18:00 Hydralazine HCl (Apresoline) 10 mg Q4H PRN IV ELEVATED SYSTOLIC BP Last administered on 09/19/16 09:27; Admin Dose 10 MG; Start 09/19/16 at 00:00 Amlodipine Besylate (Norvasc) 5 mg DAILY PO Last administered on 09/19/16 11: 44; Admin Dose 5 MG; Start 09/19/16 at 11:30 Tramadol HCl (Ultram) 50 mg Q6 NGT Last administered on 09/19/16 17:46; Admin Dose 50 MG; Start 09/19/16 at 18:00 KEVYN FONTANA Sep 19, 2016 18:01
[2016-09-19 19:22] VITALS: BP 167/92; RESP 19
[2016-09-19 19:55] VITALS: BP 154/84; PULSE 95
--- NOTE | 2016-09-20 10:10 | RADRPT ---
Vent Rate: 89 bpm RR Interval: 0 msec FL Interval: 138 msec QRS Duration: 98 msec QT Interval: 384 msec QTC Interval: 467 msec P-R-T [place]: 44 - 54 - 63 degrees Normal sinus rhythm Normal ECG Electronically Signed By: Yan Jeff [id number]
== END 2016-09-19 20:30 | disposition home health service (06) | DRG 689 ==
LOC: E/R 15:44 → MS2 19:06
PROVIDERS: ADMIT Family Medicine; ATTEND Family Medicine
PROC: 02HV33Z Insertion of Infusion Device into Superior Vena Cava, Percutaneous Approach (ICD-10-PCS; principal; 2016-09-17)
PROC: B548ZZA Ultrasonography of Superior Vena Cava, Guidance (ICD-10-PCS; 2016-09-17)
DX: N39.0 Urinary tract infection, site not specified (principal); G82.50 Quadriplegia, unspecified; G89.4 Chronic pain syndrome; E66.01 Morbid (severe) obesity due to excess calories; Z68.35 Body mass index [BMI] 35.0-35.9, adult; B96.20 Unspecified Escherichia coli [E. coli] as the cause of diseases classified elsewhere; B96.1 Klebsiella pneumoniae [K. pneumoniae] as the cause of diseases classified elsewhere; Z16.12 Extended spectrum beta lactamase (ESBL) resistance; Q05.9 Spina bifida, unspecified; Z98.2 Presence of cerebrospinal fluid drainage device
CPT/HCPCS: 36415; 36569; 71010; 76937; 80048; 80053; 81001; 83605; 85025; 85610; 85730; 87040; 87086; 93005; 93306; 96365; 96366; 96376; J0360; J1170; J1335; J1650; J2185; J2270; J7030

== ENCOUNTER 2016-09-20 11:17 | Outpatient (CLI) | payer OTHER ==
[~2016-09-20] VITALS: Ht 157.5 cm; Wt 100.0 kg
[~2016-09-20 11:17] MED LIST changes: +ERTA1VIA IV; -HYDR2TAB15 PO; -NITR-58 PO; -SULF1TAB31 PO
[2016-09-20 11:34] VITALS: Ht 157.5 cm; Wt 100.0 kg
[2016-09-20 11:35] VITALS: BP 139/86; PULSE 101; RESP 20
--- NOTE | 2016-09-20 12:25 | PN ---
Date/Time of Note Date/Time of Note DATE: 09/20/16 TIME: 12:05 Outpatient Progress Note Chief Complaint UTI//spina bifida/quadriplegia/hydrocephalus/chronic pain syndrome HPI UTI/patient was recently hospitalized with the acute UTI, patient still on IV antibiotic, patient is getting meropenem at home, Spinal bipedal with the quadriplegia/patient spina bifid I with quadriplegia, patient weakness of upper and lower extremities, Hydrocephalus/patient has hydrocephalus, status post PROTECTION CONSULTANT shunt, and patient has multiple revisions, at present patient stable, no neurological symptoms, Chronic pain syndrome/patient has chronic pain syndrome, patient was hospitalized and patient was given the pain medication in the hospital, and also on discharge patient has medication, patient still looking for some more medication, Review of Systems Const: No Fever, no chills, no Wt. loss, no Fatigue, normal appetite, no diaphoresis. Eyes: No pain, no discharge, no redness, no visual change, no foreign body. ENT: No pain, no bleeding, no congestion, no sore throat, no dysphagia, no discharge or rhinitis. Lymph: No adenopathy, no tender nodes, no lymphedema. Resp: No SOB, no cough, no sputum, no wheezing, no chest pain. CV: No chest pain, no palpitaions, no BALES, no PND, no edema. GI: Normal appetite, no pain, no nausea, no vomiting, no diarrhea, no blood, no constipation. : Patient has frequency, and and urgency, no dysuria, no hematuria, no flank pain, no discharge, no bleeding. Musc: Mild to moderate back pain, no neck pain, no knee pain, no restricted ROM. Skin: No rash, no skin lesions, no erythema, no laceration, no bruising, no pruritus. Neuro: No METZGER, no dizziness, no syncope, no seizure, upper and lower extremities , patient is wheelchair-bound, patient has quadriplegia, also had status post PROTECTION CONSULTANT shunt, with multiple revision Endo: No polyuria, no polydypsia, no dry-skin, no temp-intolerance. Psych: No hallucinations, no depression, no anxiety, no suicidal ideation. Ext: No edema, no pain, no ulcer, no upper or lower extremity weakness and patient has quadriplegia,. Physical Exam Vital Signs Date Time Temp Pulse Resp B/P Pulse Ox O2 Delivery O2 Flow Rate FiO2 09/20/16 11:35 98.4 101 20 139/86 95 Room Air General Appearance: A 26 year-old male who appears well-developed, well- nourished, in no acute distress. HEENT: Head normocephalic, atraumatic. Pupils equal, round, reactive to light and accommodate. Sclerae are no jaundice. Nasal turbinates pink without erythema or nasal discharge. Mucous membranes pink and moist without lesions. Oropharynx clear without any exudate or discharge. NECK: Supple. Trachea midline, No thyromegaly, No cervical lymphadenopathy, No mass, No carotid bruits, No JVD, Carotid pulses 2+ bilaterally. PULMONARY: Clear to auscultaion bilaterally, No retractions, Chest expansion symmetric bilaterally, no rales, no ronchi, no dulness on percussion. CARDIAC: Normal SI and S2, Regular rate and rythm, no murmur, gallop, or rub. GASTROINTESTINAL: Abdomen is soft, non-tender, Non Rigid, No distention, Positive bowel sounds x4 quadrants, Liver normal. SKIN: Warm, dry, no rash, no bruise, no echmosis. EXTREMITIES: Bilateral lower extremities normal, no edema, no phlabitus, pulse palpable patient with weakness of both lower extremities, secondary spina bifid and quadriplegia, patient also has history of hydrocephalus, status post PROTECTION CONSULTANT shunt, MUSCULOSKELETAL: Spine Normal, Non-tender, Normal range of motion, No swelling, no deformity, no clubbing, or cyanosis, the patient has no edema to bilateral lower extremities, dorsalis pedis pulses palpable bilaterally. NEUROLOGIC: The patient is awake, alert, oriented, status post PROTECTION CONSULTANT shunt, with multiple revision, responding to yes/no questions appropriately, moving all extremities, but still has weakness, patient has spina bifida, and also has normal pressure hydrocephalus and status post repletion, cranial nerve intact, reduced strenght, and power, poor coordination, wheelchair bound so unable to test gait. Allergies Coded Allergies: cefotaxime (Unverified Allergy, Intermediate, 08/12/16) latex (Unverified Allergy, Intermediate, RASH, 08/12/16) ketorolac (Unverified Allergy, Mild, RASH, 08/12/16) oxycodone (Unverified Allergy, Mild, swelling of lips, 08/12/16) papaya (Unverified Allergy, Mild, 08/12/16) piperacillin sodium (Unverified Allergy, Mild, hives, 08/12/16) tazobactam sodium (Unverified Allergy, Mild, hives, 08/12/16) acetaminophen (Unverified Allergy, Unknown, RASH, 08/12/16) hydrocodone (Unverified Allergy, Unknown, RASH, 08/12/16) ibuprofen (Unverified Allergy, Unknown, LIP SWELLING, STATED THROAT IS CLOSING, 08/12/16) piperacillin (Unverified Allergy, Unknown, 08/12/16) tazobactam (Unverified Allergy, Unknown, 08/12/16) PMH UTI/spina bifida/quadriplegia/hydrocephalus/chronic pain syndrome Social Hx Noncontributory no smoking no drinking, Family Hx Noncontributory Patient History: Cardiac disorder 33 FATHER Hypertension 32 MOTHER, Onset:60 years & older Assessment/Plan Impression UTI with Klebsiella pneumonia ESBL Spina bifid a Quadriplegia Hydrocephalus/status post with patient Chronic pain syndrome Plan Patient education done about above diseases, patient still on IV antibiotic, patient still has a symptom, will repeat the lab after the finishing the antibiotic, if patient's symptoms persist, Patient encouraged to follow with the primary care physician, Patient still looking for pain medication, Fall precaution, Naprosyn 350 twice daily as needed for pain, if needed #30 CBC CMP, after completion of the antibiotic, Medications Home Meds Discontinued Scripts Ertapenem Sodium (Invanz) 1 Gm Vial.port, 1 GM IV DAILY for 6 Days Prov:GIOVANI TAVERAS 09/19/16 Sulfamethoxazole/Trimethoprim* (Bactrim Ds* Tablet) 1 Each Tablet, 1 TAB PO BID , #24 TAB Prov:JAYASHREE CHAVEZ PA-C 09/06/16 Nitrofurantoin Monohyd Macrocr* (Macrobid*) 100 Mg Capsr, 100 MG PO BID for 7 Days, CAP Prov:JUAQUIN CAT MD 08/18/16 Hydromorphone Hcl* (Dilaudid*) 2 Mg Tablet, 1 MG PO Q4H Y for PAIN LEVEL 6-10, # 14 TAB Prov:MAMTA SMITH 08/12/16 HELEN LUKE MD Sep 20, 2016 12:20
== END 2016-09-20 16:44 | disposition home or self-care (01) ==
LOC: DCC 11:17
PROVIDERS: ATTEND Internal Medicine
DX: N39.0 Urinary tract infection, site not specified (principal); J15.0 Pneumonia due to Klebsiella pneumoniae; Q05.9 Spina bifida, unspecified; G82.50 Quadriplegia, unspecified; G91.9 Hydrocephalus, unspecified; Z88.3 Allergy status to other anti-infective agents; G89.4 Chronic pain syndrome

== ENCOUNTER 2016-10-02 15:50 | Inpatient (IN) | payer OTHER ==
[~2016-10-02] VITALS: Ht 157.5 cm; Wt 105.6 kg
[2016-10-02] MEDS ORDERED: SOD CHLORIDE 0.9% 1,000 ML IV STA (21:21)
[2016-10-02] MEDS ORDERED: HYDROmorphONE 1 MG/ML SYG IV STA (21:21)
[2016-10-02] MEDS ORDERED: ALTEPLASE (CATHFLO) 2 MG INJ CATHETER PRN (22:00)
[2016-10-02 23:24] LABS: ADD SCAN DIFF NO
[2016-10-02 23:29] LABS: BASOPHILS % 0.3 % (0.0-2.0); EOSINOPHILS # 0.8 10^3/ul (0.0-0.5); EOSINOPHILS % 6.7 % (0.0-7.0); HEMATOCRIT 41.2 % (42.0-52.0); HEMOGLOBIN 12.9 g/dl (14.0-18.0); LYMPHOCYTES # 3.9 10^3/ul (0.8-2.9); LYMPHOCYTES % 33.5 % (15.0-51.0); MEAN CORPUSCULAR HEMOGLOBIN 25.8 pg (29.0-33.0); MEAN CORPUSCULAR HGB CONC 31.3 g/dl (32.0-37.0); MEAN CORPUSCULAR VOLUME 82.4 fl (82.0-101.0); MEAN PLATELET VOLUME 9.9 fl (7.4-10.4); MONOCYTES % 8.1 % (0.0-11.0); PLATELET COUNT 337 10^3/UL (140-415); RED CELL DISTRIBUTION WIDTH 15.1 % (11.5-14.5); WHITE BLOOD COUNT 11.7 10^3/ul (4.8-10.8)
[2016-10-02 23:49] LABS: CALCIUM 9.2 mg/dl (8.4-10.2); CREATININE 0.56 mg/dl (0.61-1.24); POTASSIUM 3.4 mmol/L (3.5-5.1)
[2016-10-02 23:50] LABS: ADD UMIC YES; UR ASCORBIC ACID NEGATIVE (NEGATIVE); UR BACTERIA FEW /HPF (NONE SEEN); UR BILIRUBIN (Dip) NEGATIVE (NEGATIVE); UR BLOOD (Dip) 1+ mg/dL (NEGATIVE); UR CLARITY SLIGHTLY CLOUDY (CLEAR); UR COLOR YELLOW (YELLOW); UR GLUCOSE (Dip) NEGATIVE (NEGATIVE); UR KETONES (Dip) NEGATIVE (NEGATIVE); UR LEUKOCYTE ESTERASE (Dip) 1+ Leu/ul (NEGATIVE); UR MUCUS FEW /HPF (NONE SEEN); UR NITRITE (Dip) NEGATIVE (NEGATIVE); UR RBC 23 /HPF (0-5); UR SPECIFIC GRAVITY (Dip) 1.014 (1.003-1.030); UR TOTAL PROTEIN (Dip) 1+ mg/dl (NEGATIVE); UR UROBILINOGEN (Dip) NEGATIVE (NEGATIVE)
[2016-10-02 23:56] VITALS: TEMP 98.1
--- NOTE | 2016-10-03 00:27 | HP ---
Date/Time of Note Date/Time of Note DATE: 10/03/16 TIME: 00:26 Assessment/Plan VTE Prophylaxis VTE Prophylaxis Intervention: LMWH Assessment/Plan Assessment/Plan Chief Complaint/Hosp Course This is a 26 yo Paraplegic with 1. Dysuria / chronic recurrent UTI: likely colonized, repeat cultures / empiric abx/ ID consult / Pyridium / ? consider consult 2. History of spina bifida with quadriplegia: Unchanged continue to monitor 3. History of hydrocephalus status post V-P shunt with multiple revisions: Stable patient currently not complaining of any headaches or neurological symptoms. 4 Chronic pain syndrome / ?med seeking : continue home meds, pain mgt consult 5. Morbid obesity DVT and GI prophylaxis: Lovenox, Protonix HPI/ROS Admit Date/Time Admit Date/Time 10/03/16 Hx of Present Illness 26-year-old chronic paraplegic with a history of spinal bifida recurrent Klebsiella ESBL urinary tract infections who comes back to the emergency room today after treatment of ESBL UTI with home IV antibiotics for 7 days with persistence of dysuria and burning on micturition. Patient denies fever denies chest pain or shortness of breath. Repeat urinalysis still consistent with a urinary tract infection. He is being admitted for ID as well as possible urology review. Patient also exhibited medication seeking behavior. ROS 12 point review if systems was done and pertinent findings are as noted. PMH/Family/Social Past Medical History 1. Recurrent Klebsiella extended-spectrum beta-lactamase urinary tract infection. 2. Morbid obesity. 3. History of hydrocephalus, status post ventriculoperitoneal shunt placement. 4. History of spina bifida. Past Surgical History Past Surgical Hx: other Social History Smoking Status: Never smoker Exam/Review of Systems Vital Signs Vitals Vital Signs Date Time Temp Pulse Resp B/P Pulse Ox O2 Delivery O2 Flow Rate FiO2 10/02/16 23:56 98.1 88 18 135/88 100 Room Air Exam Exam Constitutional: alert, oriented, obese Head: atraumatic, normocephalic Neck: non-tender, supple Respiratory: clear to auscultation Cardiovascular: regular rate and rhythm Gastrointestinal: nl liver, spleen, non-tender, soft Extremities: José chronic edema Labs Result Diagram: 10/02/16 2300 10/02/16 2300 YESSY LEON Oct 03, 2016 00:27
[2016-10-03] MEDS ORDERED: ONDANSETRON 4 MG INJ IV PRN (00:30)
[2016-10-03 00:47] VITALS: PULSE 69
[2016-10-03 01:24] VITALS: Ht 157.5 cm; Wt 105.6 kg
[2016-10-03 01:34] VITALS: BP 159/97; RESP 20
[2016-10-03] MEDS: SOD CHLORIDE 0.9% 1,000 ML IV SCH ×4 (01:35→21:05)
[2016-10-03] MEDS: HYDROmorphONE 1 MG/ML SYG IV PRN ×2 (02:29→08:12)
[2016-10-03] MEDS: ERTAPENEM SODIUM 1 GM in SOD CHLORIDE 0.9% 100 ML IVPB SCH (02:29)
--- NOTE | 2016-10-03 03:37 | ERA ---
ER Documentation Chief Complaint Date/Time DATE: 10/03/16 TIME: 03:31 Chief Complaint HAS PICC LINE, WANTS IT OUT, FINISHED TX, STILL FOUL ODOR ON URINE HPI 26-year-old male with a history of spina bifida, paraplegia, and frequent UTIs, presenting with suprapubic and bilateral flank pain. He was recently admitted for similar complaints. He was known to have ESBL UTI. A PICC was placed and he was started on meropenem. He finished his meropenem 2 days ago and states that his symptoms have not improved at all. His pain is a 10 out of 10. He describes as aching, constant, nonradiating. He does not have any associated fever, chills, nausea, vomiting. ROS All systems reviewed and are negative except as per history of present illness. Medications Home Meds No Active Prescriptions or Reported Meds Allergies Allergies: Coded Allergies: cefotaxime (Unverified Allergy, Intermediate, 10/02/16) latex (Unverified Allergy, Intermediate, RASH, 10/02/16) ketorolac (Unverified Allergy, Mild, RASH, 10/02/16) oxycodone (Unverified Allergy, Mild, swelling of lips, 10/02/16) papaya (Unverified Allergy, Mild, 10/02/16) piperacillin sodium (Unverified Allergy, Mild, hives, 10/02/16) tazobactam sodium (Unverified Allergy, Mild, hives, 10/02/16) acetaminophen (Unverified Allergy, Unknown, RASH, 10/02/16) hydrocodone (Unverified Allergy, Unknown, RASH, 10/02/16) ibuprofen (Unverified Allergy, Unknown, LIP SWELLING, STATED THROAT IS CLOSING, 10/02/16) PMhx/Soc History of Surgery: Yes (v-p shunt, back surgeries, right foot surgery) Anesthesia Reaction: No Hx Neurological Disorder: Yes (spina bifida) Hx Respiratory Disorders: No Hx Cardiac Disorders: No Hx Psychiatric Problems: No Hx Miscellaneous Medical Probl: No Hx Alcohol Use: Yes Hx Tobacco Use: No Smoking Status: Current some day smoker FmHx Family History: No diabetes Physical Exam Vitals Vital Signs Date Time Temp Pulse Resp B/P Pulse Ox O2 Delivery O2 Flow Rate FiO2 10/02/16 23:56 98.1 88 18 135/88 100 Room Air 10/02/16 15:55 98.1 90 18 140/90 99 Physical Exam Const: Nontoxic, no distress Head: Atraumatic Eyes: Normal Conjunctiva ENT: Normal External Ears, Nose and Mouth. Neck: Full range of motion..~ No meningismus. Resp: Clear to auscultation bilaterally Cardio: Regular rate and rhythm, no murmurs Abd: Soft, suprapubic tenderness without rebound or guarding, non distended. Normal bowel sounds Skin: No petechiae or rashes Back: Mild bilateral flank tenderness Ext: No cyanosis, or edema Neur: Awake and alert Psych: Normal Mood and Affect Result Diagram: 10/02/16229910/02/162299 Results 24 hrs Laboratory Tests Test 10/02/16 23:00 10/02/16 23:10 White Blood Count 11.710^3/ul Red Blood Count 5.0010^6/ul Hemoglobin 12.9g/dl Hematocrit 41.2% Mean Corpuscular Volume 82.4fl Mean Corpuscular Hemoglobin 25.8pg Mean Corpuscular Hemoglobin Concent 31.3g/dl Red Cell Distribution Width 15.1% Platelet Count 26599^3/UL Mean Platelet Volume 9.9fl Neutrophils % 51.0% Lymphocytes % 33.5% Monocytes % 8.1% Eosinophils % 6.7% Basophils % 0.3% Nucleated Red Blood Cells % 0.0/100WBC Neutrophils # 6.010^3/ul Lymphocytes # 3.910^3/ul Monocytes # 1.010^3/ul Eosinophils # 0.810^3/ul Basophils # 0.010^3/ul Nucleated Red Blood Cells # 0.010^3/ul Sodium Level 141mmol/L Potassium Level 3.4mmol/L Chloride Level 107mmol/L Carbon Dioxide Level 24mmol/L Anion Gap 13 Blood Urea Nitrogen 20mg/dl Creatinine 0.56mg/dl Glucose Level 91mg/dl Calcium Level 9.2mg/dl Lipase 110U/L Urine Color YELLOW Urine Clarity SLIGHTLY CLOUDY Urine pH 7.0 Urine Specific [place] 1.014 Urine Ketones NEGATIVEmg/dL Urine Nitrite NEGATIVEmg/dL Urine Bilirubin NEGATIVEmg/dL Urine Urobilinogen NEGATIVEmg/dL Urine Leukocyte Esterase 1+Karuna/ul Urine Microscopic RBC 23/HPF Urine Microscopic WBC 47/HPF Urine Bacteria FEW/HPF Urine Mucus FEW/HPF Urine Hemoglobin 1+mg/dL Urine Glucose NEGATIVEmg/dL Urine Total Protein 1+mg/dl Current Medications Medications (Trade) Dose Ordered Sig/Evaristo Route PRN Reason Start Time Stop Time Status Last Admin Dose Admin Sodium Chloride (NS) 1,000 ml @ 1,000 mls/hr Q1H STAT IV 10/02/16 21:21 10/02/16 22:20 DC 10/02/16 23:17 Hydromorphone HCl (Dilaudid) 1 mg ONCE STAT IV 10/02/16 21:21 10/02/16 21:23 DC 10/02/16 22:01 Alteplase, Recombinant (Cathflo (Activase)) 2 mg MAY REPEAT X1 PRN CATHETER IF CATHETER REMAINS OCCULUDED 10/02/16 22:00 10/02/16 22:21 Procedures/MDM Labs CBC: Leukocytosis BMP: Mild hypokalemia, no evidence of significant electrolyte abnormality, renal failure, hypoglycemia UA: Findings consistent with infection MDM Patient is presenting with symptoms of pyelonephritis/UTI. He is afebrile with stable vitals. Urinalysis was consistent with infection. I reviewed his old records and his infection is only sensitive to imipenem and cefepime. However the patient is allergic to cephalosporins, so I could not give this antibiotic. The only option at this point is meropenem. A repeat urine culture was sent. I spoke with panel, who admitted the patient last time, and they will admit him for observation and to follow-up on his repeat urine cultures to decide on the appropriate antibiotic for his UTI. Dilaudid was given for pain one time. The patient continued to ask for Dilaudid during his ED course. Accepting Care Team: Current data and ongoing care discussed. Time: Time of admission Primary Provider: Robert Consulting: None Outstanding Data: Urine culture Departure Diagnosis: Primary Impression: Pyelonephritis Additional Impression: Recurrent UTI Condition: ASYA Paul MD Oct 03, 2016 03:37
[2016-10-03 07:30] VITALS: BP 156/84; RESP 19
[2016-10-03] MEDS: POTASSIUM CHLORIDE (SR) 20 MEQ TAB PO SCH ×2 (08:12→11:40)
[2016-10-03] MEDS: ENOXAPARIN 40 MG/0.4 ML SYG SC SCH (08:22)
--- NOTE | 2016-10-03 08:54 | RADRPT ---
PROCEDURE: US upper extremity Venous. CLINICAL INDICATION: Right arm edema TECHNIQUE: Multiple sonographic images of the right upper extremity venous system was obtained uti lizing grayscale, color-flow, compressive sonography and doppler imaging with augmentation. The vasile ges were reviewed on a PACS workstation. COMPARISON: None. FINDINGS: There is normal compressibility and flow within the right internal jugular vein, subclavian vein, ax illary vein, brachial, basilic, cephalic, radial and ulnar veins. There is a right-sided PICC line in the basilic vein. RPTAT: AA IMPRESSION: No sonographic evidence for venous thrombosis. .Lanre Burch MD, MD Date Time Electronically viewed and signed by .Lanre Burch MD, on 10/03/2016 08:53 .S/
[2016-10-03] MEDS: PHENAZOPYRIDINE 100 MG TAB PO SCH ×3 (10:01→22:17)
--- NOTE | 2016-10-03 12:21 | CONS ---
Date/Time of Note Date/Time of Note DATE: 10/03/16 TIME: 12:20 Assessment/Plan Assessment/Plan Chief Complaint/Hosp Course Subjective: Patient was readmitted with dysuria and bilateral flank pain. He is alert, lying comfortably in bed. Vital signs: Temperature 98.4 pulse 90 respirations 19 blood pressure 156/84 saturation 95 on room air. Laboratory data: WBC yesterday 11.7, no shift no balance BN 20 creatinine 0.56 Microbiology urine culture pending Antimicrobials: Invanz Physical examination: This is a morbidly obese well-developed young man who is alert in no distress, head atraumatic normocephalic sclera nonicteric. Neck is obese. Chest rise symmetrical, breath sounds clear. S1-S2 , regular. Abdomen obese, soft bowel tones present. Extremities with trace edema Assessment: 1. Recurrent UTI, history of recent klebsiella extended-spectrum beta- lactamase urinary tract infection. 2. Morbid obesity. 3. History of hydrocephalus, status post ventriculoperitoneal shunt placement. 4. History of spina bifida. Plan: Pending urine culture, continue antibiotics, monitor postvoid residuals Discussed with patient, staff Problems: Consultation Date/Type/Reason Admit Date/Time Oct 03, 2016 at 00:29 Initial Consult Date Type of Consultation: id Exam/Review of Systems Vital Signs Vitals Vital Signs Date Time Temp Pulse Resp B/P Pulse Ox O2 Delivery O2 Flow Rate FiO2 10/03/16 07:30 98.4 90 19 156/84 95 10/03/16 00:47 Room Air Intake and Output 10/02/16 10/02/16 10/03/16 15:00 23:00 07:00 Intake Total 1875 ml Balance 1875 ml Results Result Diagram: 10/02/16 2300 10/02/16 2300 Results 24 hrs Laboratory Tests Test 10/02/16 23:00 10/02/16 23:10 White Blood Count 11.7 #H Red Blood Count 5.00 Hemoglobin 12.9 L Hematocrit 41.2 L Mean Corpuscular Volume 82.4 Mean Corpuscular Hemoglobin 25.8 L Mean Corpuscular Hemoglobin Concent 31.3 L Red Cell Distribution Width 15.1 H Platelet Count 337 Mean Platelet Volume 9.9 Neutrophils % 51.0 Lymphocytes % 33.5 Monocytes % 8.1 Eosinophils % 6.7 Basophils % 0.3 Nucleated Red Blood Cells % 0.0 Neutrophils # 6.0 Lymphocytes # 3.9 H Monocytes # 1.0 H Eosinophils # 0.8 H Basophils # 0.0 Nucleated Red Blood Cells # 0.0 Sodium Level 141 Potassium Level 3.4 L Chloride Level 107 Carbon Dioxide Level 24 Anion Gap 13 Blood Urea Nitrogen 20 Creatinine 0.56 L Glucose Level 91 Calcium Level 9.2 Lipase 110 Urine Color YELLOW Urine Clarity SLIGHTLY CLOUDY A Urine pH 7.0 Urine Specific [place] 1.014 Urine Ketones NEGATIVE Urine Nitrite NEGATIVE Urine Bilirubin NEGATIVE Urine Urobilinogen NEGATIVE Urine Leukocyte Esterase 1+ H Urine Microscopic RBC 23 H Urine Microscopic WBC 47 H Urine Bacteria FEW A Urine Mucus FEW A Urine Hemoglobin 1+ H Urine Glucose NEGATIVE Urine Total Protein 1+ H Medications Medications Current Medications Phenazopyridine HCl 100 mg 100 mg TID PO Last administered on 10/03/16 10:01; Admin Dose 100 MG; Start 10/03/16 at 09:00 Sodium Chloride (NS) 1,000 ml @ 125 mls/hr Q8H IV Last administered on 01:35; Admin Dose 125 MLS/HR; Start 10/03/16 at 01:30 Enoxaparin Sodium 40 mg 40 mg DAILY SC Last administered on 10/03/16 08:22; Admin Dose 40 MG; Start 10/03/16 at 09:00 Ertapenem/Sodium Chloride (Invanz/NS) 100 ml @ 200 mls/hr Q24H IVPB Last administered on 10/03/16 02:29; Admin Dose 200 MLS/HR; Start 10/03/16 at 02:00 Tramadol HCl (Ultram) 50 mg Q6H PRN PO PAIN LEVEL 7-10; Start 10/03/16 at 10:00 PAT RODRIGUEZ NP Oct 03, 2016 12:20
[2016-10-03] MEDS: traMADol 50 MG TAB PO PRN (14:46)
[2016-10-03 19:59] VITALS: BP 162/92; RESP 18
[2016-10-04] MEDS: SOD CHLORIDE 0.9% 1,000 ML IV SCH ×4 (01:22→18:02)
[2016-10-04] MEDS: ERTAPENEM SODIUM 1 GM in SOD CHLORIDE 0.9% 100 ML IVPB SCH (01:25)
[2016-10-04 02:08] VITALS: BP 169/97; RESP 18
[2016-10-04] MEDS ORDERED: hydrALAzine 20 MG INJ IV PRN (03:20)
[2016-10-04] MEDS ORDERED: LIDOCAINE 1% (MPF) 5 ML VIAL SC ONE (08:00)
[2016-10-04 08:14] VITALS: BP 139/85; RESP 20
[2016-10-04] MEDS: ENOXAPARIN 40 MG/0.4 ML SYG SC SCH (09:00)
[2016-10-04] MEDS: PHENAZOPYRIDINE 100 MG TAB PO SCH ×3 (09:44→21:25)
--- NOTE | 2016-10-04 10:11 | PN ---
Date/Time of Note Date/Time of Note DATE: 10/04/16 TIME: 10:08 Assessment/Plan VTE Prophylaxis VTE Prophylaxis Intervention: LMWH Lines/Catheters IV Catheter Type (from Nrs): PICC Line Central line still needed: Yes Urinary Cath still in place: No Assessment/Plan Chief Complaint/Hosp Course A/P: 26 yo Paraplegic with 1. Dysuria / chronic recurrent UTI: likely colonized, repeat cultures / empiric abx/ f/u ID consult rec's/ Pyridium / ? consider consult 2. History of spina bifida with quadriplegia: Unchanged - continue to monitor 3. History of hydrocephalus status post V-P shunt with multiple revisions: Stable patient currently not complaining of any headaches or neurological symptoms. -Monitor for now 4 Chronic pain syndrome / ?med seeking : continue home meds, pain mgt consult 5. Morbid obesity DVT and GI prophylaxis: Lovenox, Protonix Problems: Subjective 24 Hr Interval Summary Free Text/Dictation No acute events overnight. Refused lab work this morning. Seen by ID team yesterday. Exam/Review of Systems Vital Signs Vitals Vital Signs Date Time Temp Pulse Resp B/P Pulse Ox O2 Delivery O2 Flow Rate FiO2 10/04/16 08:14 97.9 82 20 139/85 95 10/03/16 00:47 Room Air Intake and Output 10/03/16 10/03/16 10/04/16 15:00 23:00 07:00 Intake Total 625 ml 1480 ml 1500 ml Balance 625 ml 1480 ml 1500 ml Exam Constitutional: alert, oriented, obese Head: atraumatic, normocephalic Neck: non-tender, supple Respiratory: clear to auscultation Cardiovascular: regular rate and rhythm Gastrointestinal: nl liver, spleen, non-tender, soft Extremities: José chronic edema Results Result Diagram: 10/02/16 2300 10/02/16 2300 Medications Medications Current Medications Phenazopyridine HCl 100 mg 100 mg TID PO Last administered on 10/04/16 09:44; Admin Dose 100 MG; Start 10/03/16 at 09:00 Sodium Chloride (NS) 1,000 ml @ 125 mls/hr Q8H IV Last administered on 05:51; Admin Dose 125 MLS/HR; Start 10/03/16 at 01:30 Enoxaparin Sodium 40 mg 40 mg DAILY SC Last administered on 10/03/16 08:22; Admin Dose 40 MG; Start 10/03/16 at 09:00 Ertapenem/Sodium Chloride (Invanz/NS) 100 ml @ 200 mls/hr Q24H IVPB Last administered on 10/04/16 01:25; Admin Dose 200 MLS/HR; Start 10/03/16 at 02:00 Tramadol HCl (Ultram) 50 mg Q6H PRN PO PAIN LEVEL 7-10; Start 10/03/16 at 10:00 Hydralazine HCl (Apresoline) 10 mg Q6H PRN IV ELEVATED SYSTOLIC BP Last administered on 10/04/16 03:36; Admin Dose 10 MG; Start 10/04/16 at 03:20 MARLY VALDIVIA Oct 04, 2016 10:11
--- NOTE | 2016-10-04 12:48 | CONS ---
Date/Time of Note Date/Time of Note DATE: 10/04/16 TIME: 12:47 Assessment/Plan Assessment/Plan Chief Complaint/Hosp Course Subjective: Patient was readmitted with dysuria and bilateral flank pain. He is alert, lying comfortably in bed. Microbiology: urine culture growing enterococcus species Antimicrobials: Invanz Physical examination: This is a morbidly obese well-developed young man who is alert in no distress, head atraumatic normocephalic sclera nonicteric. Neck is obese. Chest rise symmetrical, breath sounds clear. S1-S2 , regular. Abdomen obese, soft bowel tones present. Extremities with trace edema Assessment: 1. Recurrent UTI with a recent history of klebsiella extended-spectrum beta- lactamase urinary tract infection. 2. Morbid obesity. 3. History of hydrocephalus, status post ventriculoperitoneal shunt placement. 4. History of spina bifida. Plan: Pending final urine culture, will add Zyvox, continue antibiotics Discussed with staff Problems: Consultation Date/Type/Reason Admit Date/Time Oct 03, 2016 at 00:29 Type of Consultation: id Exam/Review of Systems Vital Signs Vitals Vital Signs Date Time Temp Pulse Resp B/P Pulse Ox O2 Delivery O2 Flow Rate FiO2 10/04/16 08:14 97.9 82 20 139/85 95 10/03/16 00:47 Room Air Intake and Output 10/03/16 10/03/16 10/04/16 15:00 23:00 07:00 Intake Total 625 ml 1480 ml 1500 ml Balance 625 ml 1480 ml 1500 ml Results Result Diagram: 10/02/16 2300 10/02/16 2300 Medications Medications Current Medications Phenazopyridine HCl 100 mg 100 mg TID PO Last administered on 10/04/16 09:44; Admin Dose 100 MG; Start 10/03/16 at 09:00 Sodium Chloride (NS) 1,000 ml @ 125 mls/hr Q8H IV Last administered on 05:51; Admin Dose 125 MLS/HR; Start 10/03/16 at 01:30 Enoxaparin Sodium 40 mg 40 mg DAILY SC Last administered on 10/03/16 08:22; Admin Dose 40 MG; Start 10/03/16 at 09:00 Ertapenem/Sodium Chloride (Invanz/NS) 100 ml @ 200 mls/hr Q24H IVPB Last administered on 10/04/16 01:25; Admin Dose 200 MLS/HR; Start 10/03/16 at 02:00 Tramadol HCl (Ultram) 50 mg Q6H PRN PO PAIN LEVEL 7-10; Start 10/03/16 at 10:00 Hydralazine HCl (Apresoline) 10 mg Q6H PRN IV ELEVATED SYSTOLIC BP Last administered on 10/04/16 03:36; Admin Dose 10 MG; Start 10/04/16 at 03:20 PAT RODRIGUEZ NP Oct 04, 2016 12:48
[2016-10-04 20:32] VITALS: BP 157/85; RESP 18
[2016-10-04] MEDS ORDERED: ZYVOX 600 MG TAB PO SCH (21:00)
[2016-10-04] MEDS: ZYVOX 600 MG TAB PO SCH (21:25)
[2016-10-05] MEDS: traMADol 50 MG TAB PO PRN (01:12)
[2016-10-05] MEDS: SOD CHLORIDE 0.9% 1,000 ML IV SCH ×3 (01:30→17:30)
[2016-10-05] MEDS: ERTAPENEM SODIUM 1 GM in SOD CHLORIDE 0.9% 100 ML IVPB SCH (02:00)
[2016-10-05] MEDS ORDERED: OXYCODONE/ACETAMINOPHEN (5/325) TAB PO PRN (02:11)
[2016-10-05 02:58] VITALS: BP 173/82; RESP 18
[2016-10-05 08:17] VITALS: BP 143/65; RESP 18
[2016-10-05] MEDS: ENOXAPARIN 40 MG/0.4 ML SYG SC SCH (09:00)
[2016-10-05] MEDS: ZYVOX 600 MG TAB PO SCH (09:51)
[2016-10-05] MEDS: PHENAZOPYRIDINE 100 MG TAB PO SCH ×2 (09:51→13:13)
--- NOTE | 2016-10-05 12:08 | PDOCDIS ---
Discharge Instructions CONDITION Patient Condition: Stable HOME CARE INSTRUCTIONS: Diet Instructions: Low Fat /Cholesterol ACTIVITY: Activity Restrictions: Slowly Increase Activity FOLLOW UP/APPOINTMENTS Follow-up Plan Please take your medications as prescribed. Please follow-up with your primary doctor in the clinic in the next 1 week. MARLY VALDIVIA Oct 05, 2016 12:07
[2016-10-05] MEDS ORDERED: Oxycodone/Acetamin (5/325) PO (12:12)
[2016-10-05] MEDS ORDERED: LINE600T6 PO (12:12)
[2016-10-05] MEDS ORDERED: PHEN-612 PO (12:12)
--- NOTE | 2016-10-05 12:17 | DS ---
Date/Time of Note Date/Time of Note DATE: 10/05/16 TIME: 12:14 Discharge Summary Admission/Discharge Info Admit Date/Time Oct 04, 2016 at 11:41 Discharge Date/Time Discharge Diagnosis 1. Dysuria / chronic recurrent UTI: Positive VRE in the urine 2. History of spina bifida with quadriplegia: Unchanged 3. History of hydrocephalus status post V-P shunt with multiple revisions 4 Chronic pain syndrome / ?med seeking 5. Morbid obesity Patient Condition: Stable Hospital Course 26-year-old chronic paraplegic with a history of spinal bifida recurrent Klebsiella ESBL urinary tract infections who comes back to the emergency room today after treatment of ESBL UTI with home IV antibiotics for 7 days with persistence of dysuria and burning on micturition. Patient denies fever denies chest pain or shortness of breath. Repeat urinalysis still consistent with a urinary tract infection. He is being admitted for ID as well as possible urology review. Patient also exhibited medication seeking behavior. Patient was admitted to medical surgical floor, seen by infectious disease team. His urine culture was positive for VRE. He had his old PICC line removed since there was some swelling around this line. Tip was sent for culture, and the upper extremity ultrasound right arm was negative for DVT. Patient's symptoms improved, he was back at his baseline status. He tolerated the medicines well. Was started on Pyridium for his dysuria and burning symptoms. He was switched from IV antibiotics to p.o. Zyvox. He will be discharged home today in improved condition. He will need to take Zyvox twice daily for 7 days to complete treatment. Please see this discharge summary for full hospital discharge medication list. Home Meds Active Scripts Phenazopyridine Hcl* (Phenazopyridine Hcl*) 100 Mg Tablet, 100 MG PO TID for 5 Days, TAB Prov:MARLY VALDIVIA S. 10/05/16 [Oxycodone/Acetamin (5/325)] 1 TAB TAB No Conflict Check, 1 TAB PO Q6H Y for PAIN Prov:MARLY VALDIVIA S. 10/05/16 Linezolid (Linezolid) 600 Mg Tablet, 600 MG PO BID, #14 TAB Prov:MARLY VALDIVIA S. 10/05/16 Primary Care Provider Denilson Eubanks MD Time spent on discharge: > 30 minutes Pending Labs Microbiology Date/Time Source Procedure Growth Status 10/05/16 01:00 Central Cath Tip Anaerobic Culture - Preliminary Resulted MARLY VALDIVIA Oct 05, 2016 12:17
[2016-10-05] MEDS ORDERED: FOSFOMYCIN 3 GM PACKET PO ONE (14:30)
--- NOTE | 2016-10-05 15:58 | CONS ---
Date/Time of Note Date/Time of Note DATE: 10/05/16 TIME: 15:57 Assessment/Plan Assessment/Plan Chief Complaint/Hosp Course Subjective: No acute changes, awake, looks comfortable Microbiology: urine culture growing VRE Antimicrobials: Invanz, Zyvox Physical examination: This is a morbidly obese well-developed young man who is alert in no distress, head atraumatic normocephalic sclera nonicteric. Neck is obese. Chest rise symmetrical, breath sounds clear. S1-S2 , regular. Abdomen obese, soft bowel tones present. Extremities with trace edema Assessment: 1. Recurrent UTI==> VRE with a recent history of klebsiella extended-spectrum beta-lactamase urinary tract infection. 2. Morbid obesity. 3. History of hydrocephalus, status post ventriculoperitoneal shunt placement. 4. History of spina bifida. 5. Status post PICC line removal Plan: Clinically stable, will give a dose of fosfomycin, DC Invanz, anticipate discharge on oral Zyvox for 7-10 days Discussed with staff Problems: Consultation Date/Type/Reason Admit Date/Time Oct 04, 2016 at 11:41 Type of Consultation: id Exam/Review of Systems Vital Signs Vitals Vital Signs Date Time Temp Pulse Resp B/P Pulse Ox O2 Delivery O2 Flow Rate FiO2 10/05/16 08:17 98.3 81 18 143/65 97 10/03/16 00:47 Room Air Intake and Output 10/04/16 10/04/16 10/05/16 15:00 23:00 07:00 Intake Total 2320 ml 340 ml Balance 2320 ml 340 ml Results Result Diagram: 10/02/16 2300 10/02/16 2300 Medications Medications Current Medications Phenazopyridine HCl 100 mg 100 mg TID PO Last administered on 10/05/16 13:13; Admin Dose 100 MG; Start 10/03/16 at 09:00 Sodium Chloride (NS) 1,000 ml @ 125 mls/hr Q8H IV Last administered on 18:02; Admin Dose 125 MLS/HR; Start 10/03/16 at 01:30 Enoxaparin Sodium 40 mg 40 mg DAILY SC Last administered on 10/03/16 08:22; Admin Dose 40 MG; Start 10/03/16 at 09:00 Ertapenem/Sodium Chloride (Invanz/NS) 100 ml @ 200 mls/hr Q24H IVPB Last administered on 10/04/16 01:25; Admin Dose 200 MLS/HR; Start 10/03/16 at 02:00 Tramadol HCl (Ultram) 50 mg Q6H PRN PO PAIN LEVEL 7-10 Last administered on 10/05 01:12; Admin Dose 50 MG; Start 10/03/16 at 10:00 Hydralazine HCl (Apresoline) 10 mg Q6H PRN IV ELEVATED SYSTOLIC BP Last administered on 10/04/16 03:36; Admin Dose 10 MG; Start 10/04/16 at 03:20 Linezolid (Zyvox) 600 mg BID PO Last administered on 10/05/16 09:51; Admin Dose 600 MG; Start 10/04/16 at 21:00 Oxycodone/ Acetaminophen (Percocet (5/ 325)) 1 tab Q6H PRN PO PAIN; Start at 02:11 PAT RODRIGUEZ NP Oct 05, 2016 15:58
== END 2016-10-05 18:40 | disposition home or self-care (01) | DRG 690 ==
LOC: E/R 15:50 → MS2 10-03 00:29 → OBSVTOIN 10-04 11:41
PROVIDERS: ADMIT Family Medicine; ATTEND Family Medicine
DX: N39.0 Urinary tract infection, site not specified (principal); G82.20 Paraplegia, unspecified; Z68.41 Body mass index [BMI] 40.0-44.9, adult; B95.2 Enterococcus as the cause of diseases classified elsewhere; Z16.21 Resistance to vancomycin; Z16.11 Resistance to penicillins; E66.01 Morbid (severe) obesity due to excess calories; G89.4 Chronic pain syndrome; Z98.2 Presence of cerebrospinal fluid drainage device; Z76.5 Malingerer [conscious simulation]
CPT/HCPCS: 36415; 80048; 81001; 83690; 85025; 87070; 87075; 87081; 87086; 93971; 96374; G0378; J0360; J1170; J1335; J1650; J2997; J7030

== ENCOUNTER 2016-10-18 15:16 | Emergency (ER) | payer OTHER ==
[~2016-10-18] VITALS: Wt 80.0 kg
[~2016-10-18 15:16] MED LIST changes: -ERTA1VIA IV; +LINE600T6 PO; +Oxycodone/Acetamin (5/325) PO; +PHEN-612 PO
[2016-10-18] MEDS ORDERED: HYDR-902 PO (17:02)
[2016-10-18] MEDS ORDERED: ONDANSETRON (ODT) 4 MG TAB ODT STA (17:11)
[2016-10-18] MEDS ORDERED: HYDROmorphONE 1 MG/ML SYG IM STA (17:11)
--- NOTE | 2016-10-18 17:14 | ERD ---
ER Documentation Chief Complaint Date/Time DATE: 10/18/16 TIME: 17:13 Chief Complaint CHEST WALL PAIN X 3 DAYS HPI This is a 26-year-old male known to me complains of sharp left chest wall pain that radiates to the left back. Has had it for 3 days. Patient is wheelchair- bound. The patient says the pain is sharp left anterior chest a specific pinpoint pain around rib #7. The rib is tender to palpation and the pain radiates along this rib to the costovertebral margin. No shortness of breath no trauma no fever cough. Pain is worse with movement better with rest ROS All systems reviewed and are negative except as per history of present illness. Medications Home Meds Active Scripts Phenazopyridine Hcl* (Phenazopyridine Hcl*) 100 Mg Tablet, 100 MG PO TID for 5 Days, TAB Prov:MARLY VALDIVIA S. 10/05/16 Linezolid (Linezolid) 600 Mg Tablet, 600 MG PO BID, #14 TAB Prov:MARLY VALDIVIA S. 10/05/16 Discontinued Scripts Hydrocodone/Acetaminophen ([place] 10-325 Tablet) 1 Each Tablet, 1 TAB PO Q6H Y for PAIN, #20 TAB Prov:DEMETRA PATEL DO 10/18/16 Allergies Allergies: Coded Allergies: cefotaxime (Unverified Allergy, Intermediate, 10/02/16) latex (Unverified Allergy, Intermediate, RASH, 10/02/16) ketorolac (Unverified Allergy, Mild, RASH, 10/02/16) oxycodone (Unverified Allergy, Mild, swelling of lips, 10/02/16) papaya (Unverified Allergy, Mild, 10/02/16) piperacillin sodium (Unverified Allergy, Mild, hives, 10/02/16) tazobactam sodium (Unverified Allergy, Mild, hives, 10/02/16) acetaminophen (Unverified Allergy, Unknown, RASH, 10/02/16) hydrocodone (Unverified Allergy, Unknown, RASH, 10/02/16) ibuprofen (Unverified Allergy, Unknown, LIP SWELLING, STATED THROAT IS CLOSING, 10/02/16) PMhx/Soc History of Surgery: Yes (v-p shunt, back surgeries, right foot surgery) Anesthesia Reaction: No Hx Neurological Disorder: Yes (spina bifida) Hx Respiratory Disorders: No Hx Cardiac Disorders: No Hx Psychiatric Problems: No Hx Miscellaneous Medical Probl: No Hx Alcohol Use: Yes Hx Substance Use: No Hx Tobacco Use: No FmHx Family History: No coronary disease Physical Exam Vitals Vital Signs Date Time Temp Pulse Resp B/P Pulse Ox O2 Delivery O2 Flow Rate FiO2 10/18/16 15:18 98.1 78 18 173/82 98 Physical Exam Const: Well-developed, well-nourished Head: Atraumatic, normocephalic Eyes: Normal Conjunctiva, PERRLA, EOMI, normal sclera, no nystagmus ENT: Normal External Ears, Nose and Mouth, moist mucus membranes. Neck: Full range of motion. No meningismus, no lymphadenopathy. Resp: Clear to auscultation bilaterally, no wheezing, rhonchi, rales Cardio: Regular rate and rhythm, no murmurs, S1 S2 present, tender to palpation that is moderate to severe on ribs 7. The pain is on the left anterior chest wall midaxillary and posterior chest wall along this rib. Pain is much worse with movement of the trunk Abd: Soft, non tender x 4, non distended. Normal bowel sounds, no guarding or rebound, no pulsitile abdominal masses or bruits Skin: No petechiae or rashes, no ecchymosis , no maculopapular rash Back: No midline or flank tenderness Ext: No cyanosis, or edema, FROM x 4, normal inspection, neurovascularly intact x 4 Neur: Awake and alert, STR 5/5 x 4, sensation intact x 4, no focal findings, cerebellum intact Psych: Normal Mood and Affect Results 24 hrs Current Medications Medications (Trade) Dose Ordered Sig/Evaristo Route PRN Reason Start Time Stop Time Status Last Admin Dose Admin Acetaminophen/ Hydrocodone Bitart ([place] (5/325)) 1 tab ONCE ONCE PO 10/18/16 17:30 10/18/16 17:30 DC Hydromorphone HCl (Dilaudid) 1 mg ONCE STAT IM 10/18/16 17:11 10/18/16 17:12 UNV Ondansetron HCl (Zofran Odt) 4 mg ONCE STAT ODT 10/18/16 17:11 10/18/16 17:12 UNV Procedures/MDM Patient clearly has musculoskeletal pain Departure Diagnosis: Primary Impression: Chest wall pain Condition: Stable Patient Instructions: Chest Wall Strain Referrals: ANNA KHAN MD (PCP) DEMETRA PATEL DO Oct 18, 2016 17:14
[2016-10-18] MEDS ORDERED: HYDROCODONE/APAP (5/325) TAB PO ONE (17:30)
== END 2016-10-18 18:15 | disposition home or self-care (01) ==
LOC: FTE 15:16
DX: R07.89 Other chest pain (principal); Z91.040 Latex allergy status
CPT/HCPCS: 96372; J1170; Z7502; Z7610

== ENCOUNTER 2016-11-14 16:01 | Emergency (ER) | END 2016-11-14 17:25 | disposition home or self-care (01) | DX: S91.001A Unspecified open wound, right ankle, initial encounter (principal); X58.XXXA Exposure to other specified factors, initial encounter; Y92.9 Unspecified place or not applicable; Z91.040 Latex allergy status | CPT/HCPCS: Z7502; Z7610 ==

== ENCOUNTER 2017-01-07 13:33 | Emergency (ER) | payer OTHER ==
[~2017-01-07] VITALS: Ht 165.1 cm; Wt 80.0 kg
[~2017-01-07 13:33] MED LIST changes: +CLIN-73 PO; +HYDR-902 PO; +LEVO750T25 PO; +NEOM28.33 TP; -Oxycodone/Acetamin (5/325) PO
[2017-01-07 13:36] VITALS: Ht 165.1 cm; Wt 80.0 kg
--- NOTE | 2017-01-07 14:49 | ERA ---
ER Documentation Chief Complaint Date/Time DATE: 01/07/17 TIME: 14:48 Chief Complaint Painful urination x 3 days. HPI The patient is a 26-year-old male, presenting to the ER because of painful urination for the last 3 days. He has similar symptoms previously; he was seen recently about on December 19 and treated for acute cystitis with antibiotic. He denies fever, chills, neck pain, chest pain, abdominal pain, vomiting, diarrhea. 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 Medications Home Meds Active Scripts Ciprofloxacin Hcl* (Ciprofloxacin Hcl*) 500 Mg Tablet, 500 MG PO BID for 10 Days , TAB Prov:SAMY CONTE MD 01/07/17 Hydrocodone/Acetaminophen ([place] 10-325 Tablet) 1 Each Tablet, 1 TAB PO Q6H Y for PAIN, #20 TAB Prov:DEMETRA PATEL DO 12/19/16 Levofloxacin* (Levaquin*) 750 Mg Tablet, 750 MG PO DAILY for 10 Days, TAB Prov:DEMETRA PATEL DO 12/19/16 Neomycin Jaime/Bacitrac Zn/Poly (Neosporin Ointment) 28.3 Gm Oint...g., 1 APPLIC TP TID, #1 UNIT Prov:KALA MOORE NP 11/14/16 Clindamycin Hcl* (Clindamycin Hcl*) 300 Mg Capsule, 300 MG PO QID for 7 Days, CAP Prov:KALA MOORE NP 11/14/16 Phenazopyridine Hcl* (Phenazopyridine Hcl*) 100 Mg Tablet, 100 MG PO TID for 5 Days, TAB Prov:MARLY VALDIVIA S. 10/05/16 Linezolid (Linezolid) 600 Mg Tablet, 600 MG PO BID, #14 TAB Prov:MARLY VALDIVIA S. 10/05/16 Allergies Allergies: Coded Allergies: cefotaxime (Verified Allergy, Intermediate, 11/14/16) latex (Verified Allergy, Intermediate, RASH, 11/14/16) ketorolac (Verified Allergy, Mild, RASH, 11/14/16) oxycodone (Verified Allergy, Mild, swelling of lips, 11/14/16) papaya (Verified Allergy, Mild, 11/14/16) piperacillin sodium (Verified Allergy, Mild, hives, 11/14/16) tazobactam sodium (Verified Allergy, Mild, hives, 11/14/16) acetaminophen (Verified Allergy, Unknown, RASH, 11/14/16) hydrocodone (Verified Allergy, Unknown, RASH, 11/14/16) ibuprofen (Unverified Allergy, Unknown, LIP SWELLING, STATED THROAT IS CLOSING, 10/02/16) PMhx/Soc History of Surgery: Yes (v-p shunt, back surgeries, right foot surgery) Anesthesia Reaction: No Hx Neurological Disorder: Yes (spina bifida) Hx Respiratory Disorders: No Hx Cardiac Disorders: No Hx Psychiatric Problems: No Hx Miscellaneous Medical Probl: No Hx Alcohol Use: Yes Hx Substance Use: No Hx Tobacco Use: No Physical Exam Vitals Vital Signs Date Time Temp Pulse Resp B/P Pulse Ox O2 Delivery O2 Flow Rate FiO2 01/07/17 13:36 98.5 109 18 126/69 97 Physical Exam Const: No acute distress. Head: Atraumatic. Eyes: Normal Conjunctiva. ENT: Normal External Ears, Nose and Mouth. Neck: Full range of motion. No meningismus. Resp: Clear to auscultation bilaterally. Cardio: Regular rate and rhythm. Abd: Soft, non distended, normal bowel sounds, non tender. Skin: No petechiae or rashes. Back: No midline or flank tenderness. Ext: Flaccid Neur: Limited due to his condition Psych: Normal Mood and Affect. Result Diagram: 01/07/17 1520 01/07/17 1520 Results 24 hrs Laboratory Tests Test 01/07/17 15:15 01/07/17 15:20 Urine Color YELLOW Urine Clarity CLOUDY Urine pH 5.0 Urine Specific [place] 1.018 Urine Ketones NEGATIVEmg/dL Urine Nitrite POSITIVEmg/dL Urine Bilirubin NEGATIVEmg/dL Urine Urobilinogen NEGATIVEmg/dL Urine Leukocyte Esterase 2+Karuna/ul Urine Microscopic RBC 0/HPF Urine Microscopic WBC > 182/HPF Urine Squamous Epithelial Cells FEW/HPF Urine Bacteria MODERATE/HPF Urine Mucus FEW/HPF Urine Hemoglobin 1+mg/dL Urine Glucose NEGATIVEmg/dL Urine Total Protein 2+mg/dl White Blood Count 12.710^3/ul Red Blood Count 5.2810^6/ul Hemoglobin 13.6g/dl Hematocrit 45.3% Mean Corpuscular Volume 85.8fl Mean Corpuscular Hemoglobin 25.8pg Mean Corpuscular Hemoglobin Concent 30.0g/dl Red Cell Distribution Width 16.6% Platelet Count 88687^3/UL Mean Platelet Volume 10.0fl Neutrophils % 57.9% Lymphocytes % 26.9% Monocytes % 10.1% Eosinophils % 4.3% Basophils % 0.5% Nucleated Red Blood Cells % 0.0/100WBC Neutrophils # 7.310^3/ul Lymphocytes # 3.410^3/ul Monocytes # 1.310^3/ul Eosinophils # 0.510^3/ul Basophils # 0.110^3/ul Nucleated Red Blood Cells # 0.010^3/ul Prothrombin Time 13.1Sec Prothrombin Time Ratio 1.0 INR International Normalized Ratio 0.99 Activated Partial Thromboplast Time 36.0Sec Sodium Level 145mmol/L Potassium Level 3.6mmol/L Chloride Level 111mmol/L Carbon Dioxide Level 23mmol/L Anion Gap 15 Blood Urea Nitrogen 15mg/dl Creatinine 0.60mg/dl Glucose Level 84mg/dl Lactic Acid Level 1.6mmol/L Calcium Level 8.9mg/dl Total Bilirubin 0.4mg/dl Direct Bilirubin 0.00mg/dl Indirect Bilirubin 0.4mg/dl Aspartate Amino Transf (AST/SGOT) 21IU/L Alanine Aminotransferase (ALT/SGPT) 50IU/L Alkaline Phosphatase 156IU/L Total Protein 8.1g/dl Albumin 4.0g/dl Globulin 4.10g/dl Albumin/Globulin Ratio 0.97 Current Medications Medications (Trade) Dose Ordered Sig/Evaristo Route PRN Reason Start Time Stop Time Status Last Admin Dose Admin Morphine Sulfate (morphine) 2 mg ONCE ONCE IV 01/07/17 16:00 01/07/17 17:29 DC Ondansetron HCl 4 mg 4 mg ONCE STAT IV 01/07/17 15:51 01/07/17 17:29 DC Ciprofloxacin/ Dextrose (Cipro Ivpb) 200 ml @ 200 mls/hr ONCE ONCE IVPB 01/07/17 17:00 01/07/17 17:29 DC Ciprofloxacin (Cipro) 500 mg ONCE ONCE PO 10/10/17 17:30 01/07/17 17:31 DC 01/07/17 17:35 Ondansetron HCl (Zofran Odt) 4 mg ONCE STAT ODT 01/07/17 17:28 01/07/17 17:30 DC 01/07/17 17:34 Tramadol HCl (Ultram) 50 mg ONCE ONCE PO 01/07/17 17:30 01/07/17 17:31 DC 01/07/17 17:34 Procedures/MDM EKG: Read by emergency physician Rate/Rhythm: Sinus tachycardia 105 beats/min QRS, ST, T-waves: No ST elevation, no T inversion Impression: Abnormal EKG MEDICAL MAKING DECISION: The patient is a 20-year-old male, presenting to the ER because of recurring acute cystitis. He was treated with Cipro p.o. and Zofran ODT and Ultram with good response. The differential diagnoses considered include but are not limited to cholelithiasis, cholecystitis, cystitis, pancreatitis, hepatitis, gastritis, peptic ulcer disease, gastric ulcer, appendicitis, diverticulitis, cholangitis, choledocholithiasis, partial small bowel obstruction. Departure Diagnosis: Primary Impression: UTI (urinary tract infection) Condition: Good Comments He was treated with Cipro I discussed the findings with the patient. I advised the patient to follow-up with the primary physician in about 1-2 days, sooner if needed and return if any concern. SAMY CONTE MD Jan 07, 2017 14:49
--- NOTE | 2017-01-07 15:23 | RADRPT ---
PROCEDURE: Chest x-ray CLINICAL INDICATION: Shortness of breath TECHNIQUE: Chest single view COMPARISON: 09/17/2016 FINDINGS: The heart is normal in size. The pulmonary vessels are normal in caliber. There are small bilatera l pleural effusions and mild lower lobe linear atelectasis. Lungs are clear. The ventriculoperitonea l shunt descending along the left chest wall. Old shunt tubing is noted in the right chest. IMPRESSION: 1. Small bilateral pleural effusions with mild lower lobe atelectasis. 2. Left chest ventriculoperitoneal shunt. 3. Coiled old tubing projected over the right chest RPTAT: HH .Osorio Mao MD, Date Time Electronically viewed and signed by .Osorio Mao MD, MD on 01/07/2017 15:23 .W/
[2017-01-07 15:32] LABS: ADD UMIC YES; UR ASCORBIC ACID NEGATIVE (NEGATIVE); UR BACTERIA MODERATE /HPF (NONE SEEN); UR BILIRUBIN (Dip) NEGATIVE (NEGATIVE); UR BLOOD (Dip) 1+ mg/dL (NEGATIVE); UR CLARITY CLOUDY (CLEAR); UR COLOR YELLOW (YELLOW); UR GLUCOSE (Dip) NEGATIVE (NEGATIVE); UR KETONES (Dip) NEGATIVE (NEGATIVE); UR LEUKOCYTE ESTERASE (Dip) 2+ Leu/ul (NEGATIVE); UR MUCUS FEW /HPF (NONE SEEN); UR NITRITE (Dip) POSITIVE (NEGATIVE); UR NONSQUAMOUS EPITHELIAL CELL 6 /HPF (NONE SEEN); UR RBC 0 /HPF (0-5); UR SPECIFIC GRAVITY (Dip) 1.018 (1.003-1.030); UR SQUAMOUS EPITHELIAL CELL FEW /HPF (FEW); UR TOTAL PROTEIN (Dip) 2+ mg/dl (NEGATIVE); UR UROBILINOGEN (Dip) NEGATIVE (NEGATIVE)
[2017-01-07] MEDS: ONDANSETRON 4 MG INJ IV STA ×2 (15:51→16:06)
[2017-01-07] MEDS: morphine 2 MG INJ IV ONE ×2 (16:00→16:06)
[2017-01-07 16:17] LABS: BASOPHIL # 0.1 10^3/ul (0.0-0.1); BASOPHILS % 0.5 % (0.0-2.0); EOSINOPHILS # 0.5 10^3/ul (0.0-0.5); EOSINOPHILS % 4.3 % (0.0-7.0); HEMATOCRIT 45.3 % (42.0-52.0); HEMOGLOBIN 13.6 g/dl (14.0-18.0); LYMPHOCYTES # 3.4 10^3/ul (0.8-2.9); LYMPHOCYTES % 26.9 % (15.0-51.0); MEAN CORPUSCULAR HEMOGLOBIN 25.8 pg (29.0-33.0); MEAN CORPUSCULAR VOLUME 85.8 fl (82.0-101.0); MONOCYTE # 1.3 10^3/ul (0.3-0.9); MONOCYTES % 10.1 % (0.0-11.0); NEUTROPHIL # 7.3 10^3/ul (1.6-7.5); NEUTROPHILS % 57.9 % (39.0-77.0); PLATELET COUNT 401 10^3/UL (140-415); RED BLOOD COUNT 5.28 10^6/ul (4.70-6.10); RED CELL DISTRIBUTION WIDTH 16.6 % (11.5-14.5); WHITE BLOOD COUNT 12.7 10^3/ul (4.8-10.8)
[2017-01-07 16:31] LABS: INR 0.99; PROTIME 13.1 Sec (12.2-14.2)
[2017-01-07 16:36] LABS: ALBUMIN/GLOBULIN RATIO 0.97; BILIRUBIN,INDIRECT 0.4 mg/dl (0-1.1); BILIRUBIN,TOTAL 0.4 mg/dl (0.2-1.3); CALCIUM 8.9 mg/dl (8.4-10.2); CREATININE 0.6 mg/dl (0.61-1.24); POTASSIUM 3.6 mmol/L (3.5-5.1); TOTAL PROTEIN 8.1 g/dl (6.1-8.1)
[2017-01-07] MEDS ORDERED: CIPR500T4 PO (16:56)
[2017-01-07] MEDS ORDERED: CIPROFLOXACIN 400MG/D5W 200 ML IVPB ONE (17:00)
[2017-01-07] MEDS ORDERED: ONDANSETRON (ODT) 4 MG TAB ODT STA (17:28)
[2017-01-07] MEDS ORDERED: traMADol 50 MG TAB PO ONE (17:30)
[2017-01-07] MEDS ORDERED: CIPROFLOXACIN 500 MG TAB PO ONE (17:30)
== END 2017-01-07 17:36 | disposition home or self-care (01) ==
LOC: FTE 13:33
DX: N39.0 Urinary tract infection, site not specified (principal); R06.02 Shortness of breath; Z91.040 Latex allergy status
CPT/HCPCS: 71010; 80053; 81001; 83605; 85025; 85610; 85730; 87040; 87086; 93005; J2405; P9612; Z7502; Z7610; J2270

== ENCOUNTER 2017-01-23 17:51 | Inpatient (IN) | payer OTHER ==
[~2017-01-23] VITALS: Ht 157.5 cm; Wt 96.0 kg
[~2017-01-23 17:51] MED LIST changes: +CIPR500T4 PO
[2017-01-23 17:59] VITALS: Ht 157.5 cm; Wt 96.0 kg
[2017-01-23] MEDS ORDERED: SOD CHLORIDE 0.9% 500 ML IV STA (19:19)
--- NOTE | 2017-01-23 19:24 | ERD ---
ER Documentation Chief Complaint Chief Complaint flank pain x 2 wks, has been taking antibiotics, self caths HPI 27-year-old man with a history of recurrent urinary tract infections and atonic bladder presents with continued symptoms. He states he has flank pain and dysuria and suspects he has continued UTI despite using ciprofloxacin orally as prescribed. He was diagnosed with a UTI last week and cultures today revealed multiple resistances including resistance to ciprofloxacin. Patient denies vomiting or diarrhea, no chest pain or shortness of breath. ROS All systems reviewed and are negative except as per history of present illness. Medications Home Meds Discontinued Scripts Ciprofloxacin Hcl* (Ciprofloxacin Hcl*) 500 Mg Tablet, 500 MG PO BID for 10 Days , TAB Prov:SAMY CONTE MD 01/07/17 Hydrocodone/Acetaminophen ([place] 10-325 Tablet) 1 Each Tablet, 1 TAB PO Q6H Y for PAIN, #20 TAB Prov:DEMETRA PATEL DO 12/19/16 Levofloxacin* (Levaquin*) 750 Mg Tablet, 750 MG PO DAILY for 10 Days, TAB Prov:DEMETRA PATEL DO 12/19/16 Neomycin Jaime/Bacitrac Zn/Poly (Neosporin Ointment) 28.3 Gm Oint...g., 1 APPLIC TP TID, #1 UNIT Prov:KALA MOORE NP 11/14/16 Clindamycin Hcl* (Clindamycin Hcl*) 300 Mg Capsule, 300 MG PO QID for 7 Days, CAP Prov:KALA MOORE NP 11/14/16 Phenazopyridine Hcl* (Phenazopyridine Hcl*) 100 Mg Tablet, 100 MG PO TID for 5 Days, TAB Prov:MARLY VALDIVIA S. 10/05/16 Linezolid (Linezolid) 600 Mg Tablet, 600 MG PO BID, #14 TAB Prov:MARLY VALDIVIA S. 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, chronic pain syndrome, opioid dependence, morbid obesity History of Surgery: Yes (v-p shunt, back surgeries, right foot surgery) Anesthesia Reaction: No Hx Neurological Disorder: Yes (spina bifida) Hx Respiratory Disorders: No Hx Cardiac Disorders: No Hx Psychiatric Problems: No Hx Miscellaneous Medical Probl: No Hx Alcohol Use: Yes Hx Substance Use: No Hx Tobacco Use: No Smoking Status: Never smoker FmHx Family History: No diabetes Physical Exam Vitals Vital Signs Date Time Temp Pulse Resp B/P Pulse Ox O2 Delivery O2 Flow Rate FiO2 01/23/17 21:44 97.6 60 20 167/93 100 Room Air 01/23/17 17:59 96 18 142/80 95 Physical Exam Const: Well-developed well-nourished man, afebrile Head: Atraumatic Eyes: Normal Conjunctiva ENT: Normal External Ears, Nose and Mouth. Neck: Full range of motion..~ No meningismus. Resp: Clear to auscultation bilaterally Cardio: Regular rate and rhythm, no murmurs Abd: Soft, non tender, non distended. Normal bowel sounds Skin: No petechiae or rashes Back: No midline or flank tenderness Ext: No cyanosis, or edema Neur: Awake and alert x 3, bilateral lower extremity paresis, upper extremity motor strength is intact, pupils equal round reactive to light, no facial asymmetry Psych: Normal Mood and Affect Result Diagram: 01/23/17204201/23/172042 Results 24 hrs Laboratory Tests Test 01/23/17 20:43 01/23/17 20:52 White Blood Count 13.610^3/ul Red Blood Count 4.9110^6/ul Hemoglobin 13.2g/dl Hematocrit 41.3% Mean Corpuscular Volume 84.1fl Mean Corpuscular Hemoglobin 26.9pg Mean Corpuscular Hemoglobin Concent 32.0g/dl Red Cell Distribution Width 15.2% Platelet Count 75459^3/UL Mean Platelet Volume 9.7fl Neutrophils % 65.1% Lymphocytes % 25.3% Monocytes % 8.5% Eosinophils % 0.5% Basophils % 0.2% Nucleated Red Blood Cells % 0.0/100WBC Neutrophils # 8.910^3/ul Lymphocytes # 3.510^3/ul Monocytes # 1.210^3/ul Eosinophils # 0.110^3/ul Basophils # 0.010^3/ul Nucleated Red Blood Cells # 0.010^3/ul Sodium Level 146mmol/L Potassium Level 3.2mmol/L Chloride Level 111mmol/L Carbon Dioxide Level 23mmol/L Anion Gap 15 Blood Urea Nitrogen 17mg/dl Creatinine 0.60mg/dl Glucose Level 94mg/dl Calcium Level 9.3mg/dl Total Bilirubin 0.4mg/dl Direct Bilirubin 0.00mg/dl Indirect Bilirubin 0.4mg/dl Aspartate Amino Transf (AST/SGOT) 24IU/L Alanine Aminotransferase (ALT/SGPT) 47IU/L Alkaline Phosphatase 154IU/L Total Protein 8.2g/dl Albumin 3.8g/dl Globulin 4.40g/dl Albumin/Globulin Ratio 0.86 Lipase 58U/L Urine Color YELLOW Urine Clarity CLOUDY Urine pH 6.0 Urine Specific [place] 1.017 Urine Ketones NEGATIVEmg/dL Urine Nitrite NEGATIVEmg/dL Urine Bilirubin NEGATIVEmg/dL Urine Urobilinogen NEGATIVEmg/dL Urine Leukocyte Esterase 1+Karuna/ul Urine Microscopic RBC 18/HPF Urine Microscopic WBC > 182/HPF Urine Bacteria MODERATE/HPF Urine Hemoglobin 1+mg/dL Urine Glucose NEGATIVEmg/dL Urine Total Protein 2+mg/dl Current Medications Medications (Trade) Dose Ordered Sig/Evaristo Route PRN Reason Start Time Stop Time Status Last Admin Dose Admin Sodium Chloride 500 ml @ 500 mls/hr Q1H STAT IV 01/23/17 19:19 01/23/17 20:18 DC 01/23/17 21:33 Ceftriaxone Sodium (Rocephin) 50 ml @ 100 mls/hr ONCE ONCE IVPB 01/23/17 19:30 01/23/17 19:59 DC 01/23/17 21:33 Ceftriaxone Sodium (Rocephin) 1 gm ONCE ONCE IM 01/23/17 22:00 01/23/17 22:01 DC 01/23/17 22:27 Procedures/MDM IV line was established patient was placed on business continuity coordinator rhythm strip revealed a sinus rhythm at about 80 bpm with upright P and T waves. Patient was afebrile, urine cultures were ordered results are pending I will follow-up. I reviewed the patient's most recent urine culture and he has multiple resistances including to ampicillin, ciprofloxacin which he was already using orally as an outpatient, levofloxacin, Bactrim, nitrofurantoin. Sensitivities include cefazolin, cefotaxime, and most likely ceftriaxone. I administered ceftriaxone 1 g IM 1. CBC reveals a leukocytosis of 14, electrolytes revealed dehydration with a BUN/ creatinine of 17/0.6, potassium low at 3.2, urine analysis was positive for infection. Patient will be admitted to [facility] for continued medical management and continued IV antibiotics. Departure Diagnosis: Primary Impression: UTI (urinary tract infection) Urinary tract infection type: catheter-associated UTI Indwelling urinary catheter type: indwelling urethral catheter Encounter type: initial encounter Qualified Code: T83.511A - Urinary tract infection associated with indwelling urethral catheter, initial encounter Additional Impressions: Ankle ulcer Laterality: right Non-pressure ulcer stage: limited to breakdown of skin Qualified Code: L97.311 - Skin ulcer of right ankle, limited to breakdown of skin Paresis of lower extremity Neurogenic bladder Chronic pain syndrome Condition: GLADYS Noyola MD Jan 23, 2017 19:24
[2017-01-23] MEDS ORDERED: CEFTRIAXONE 2 GM/50 ML (PMX) 50 ML IVPB ONE (19:30)
[2017-01-23 21:44] VITALS: TEMP 97.6
[2017-01-23] MEDS ORDERED: CEFTRIAXONE 1 GM INJ IM ONE (22:00)
[2017-01-23 23:00] VITALS: BP 180/94; PULSE 74; RESP 20
[2017-01-24] MEDS: HYDROCODONE/APAP (5/325) TAB PO PRN ×4 (01:07→23:22)
[2017-01-24 02:00] VITALS: BP 129/61; RESP 20
[2017-01-24 07:57] VITALS: BP 119/68; RESP 18
[2017-01-24] MEDS: ENOXAPARIN 40 MG/0.4 ML SYG SC SCH (08:59)
[2017-01-24 14:09] VITALS: BP 129/69; RESP 18
--- NOTE | 2017-01-24 14:34 | HP ---
Date/Time of Note Date/Time of Note DATE: 01/24/17 TIME: 14:33 Assessment/Plan VTE Prophylaxis VTE Prophylaxis Intervention: SCD's Lines/Catheters Urinary Cath still in place: No Assessment/Plan Assessment/Plan - Klebsiella P and Proteus UTI, continue Rocephin. Dr. Galvan is asked to see patient in infection disease consultation. - Right foot wound, wound care consult evaluation. Dr. Keenan is asked to see patient in post podiatry consultation - History of spina bifida with quadriplegia. - History of hydrocephalus status post FOUR ROLL CALENDER OPERATOR shunt. Further recommendations based on clinical course. Plan of care discussed with Dr. Huynh HPI/ROS Admit Date/Time Admit Date/Time Jan 23, 2017 at 19:46 Hx of Present Illness The patient is 19-year-old male known to me from previous admission. Patient is paraplegic with history of spina bifida status post multiple surgery, and history of hydrocephalus status post FOUR ROLL CALENDER OPERATOR shunt placement. Patient is presented with symptoms of flank pain to the emergency room on January 07 and was discharged with prescription for ciprofloxacin. Patient culture came back with E. coli and multidrug-resistant Proteus. Patient's complaints of lower back and abdominal pain. Patient denies any fever chills denies any chest pain denies shortness of breath. Patient is admitted for further evaluation and management. PMH/Family/Social Past Medical History Per HPI Past Surgical History Per HPI Past Surgical Hx: other Family History Significant Family History: no pertinent family hx Social History Alcohol Use: none Smoking Status: Never smoker Drug Use: none Exam/Review of Systems Vital Signs Vitals Vital Signs Date Time Temp Pulse Resp B/P Pulse Ox O2 Delivery O2 Flow Rate FiO2 01/24/17 14:09 98.4 76 18 129/69 97 01/23/17 21:44 Room Air Exam Constitutional: alert, oriented Head: normocephalic Neck: supple Respiratory: normal air movement Cardiovascular: nl pulses Gastrointestinal: non-tender, soft Musculoskeletal: muscle weakness, nl extremities to inspection Extremities: other (Right foot wound) Neurological: nl mental status, other (Paraplegia) Skin: other (Multiple wounds) Labs Result Diagram: 01/23/17204201/23/172042 Medications Medications Current Medications Ceftriaxone Sodium (Rocephin) 1 gm Q24H IM ; Start 10/27/17 at 22:00 Acetaminophen/ Hydrocodone Bitart ([place] (5/325)) 1 tab Q4H PRN PO PAIN Last administered on 01/24/17t 09:57; Admin Dose 1 TAB; Start 01/24/17 at 00:00 Enoxaparin Sodium (Lovenox) 40 mg DAILY SC ; Start 01/24/17 at 09:00 BLADIMIR BROWER Jan 24, 2017 14:34
--- NOTE | 2017-01-24 14:34 | HP ---
Date/Time of Note Date/Time of Note DATE: 01/24/17 TIME: 14:33 Assessment/Plan VTE Prophylaxis VTE Prophylaxis Intervention: SCD's Lines/Catheters Urinary Cath still in place: No Assessment/Plan Assessment/Plan - Klebsiella P and Proteus UTI, continue Rocephin. Dr. Galvan is asked to see patient in infection disease consultation. - Right foot wound, wound care consult evaluation. Dr. Keenan is asked to see patient in post podiatry consultation - History of spina bifida with quadriplegia. - History of hydrocephalus status post ELECTRICIANS TOP HELPER shunt. Further recommendations based on clinical course. Plan of care discussed with Dr. Huynh HPI/ROS Admit Date/Time Admit Date/Time Jan 23, 2017 at 19:46 Hx of Present Illness The patient is 19-year-old male known to me from previous admission. Patient is paraplegic with history of spina bifida status post multiple surgery, and history of hydrocephalus status post ELECTRICIANS TOP HELPER shunt placement. Patient is presented with symptoms of flank pain to the emergency room on January 07 and was discharged with prescription for ciprofloxacin. Patient culture came back with E. coli and multidrug-resistant Proteus. Patient's complaints of lower back and abdominal pain. Patient denies any fever chills denies any chest pain denies shortness of breath. Patient is admitted for further evaluation and management. PMH/Family/Social Past Medical History Per HPI Past Surgical History Per HPI Past Surgical Hx: other Family History Significant Family History: no pertinent family hx Social History Alcohol Use: none Smoking Status: Never smoker Drug Use: none Exam/Review of Systems Vital Signs Vitals Vital Signs Date Time Temp Pulse Resp B/P Pulse Ox O2 Delivery O2 Flow Rate FiO2 01/24/17 14:09 98.4 76 18 129/69 97 01/23/17 21:44 Room Air Exam Constitutional: alert, oriented Head: normocephalic Neck: supple Respiratory: normal air movement Cardiovascular: nl pulses Gastrointestinal: non-tender, soft Musculoskeletal: muscle weakness, nl extremities to inspection Extremities: other (Right foot wound) Neurological: nl mental status, other (Paraplegia) Skin: other (Multiple wounds) Labs Result Diagram: 01/23/17204201/23/172042 Medications Medications Current Medications Ceftriaxone Sodium (Rocephin) 1 gm Q24H IM ; Start 10/27/17 at 22:00 Acetaminophen/ Hydrocodone Bitart ([employer] (5/325)) 1 tab Q4H PRN PO PAIN Last administered on 01/24/17t 09:57; Admin Dose 1 TAB; Start 01/24/17 at 00:00 Enoxaparin Sodium (Lovenox) 40 mg DAILY SC ; Start 01/24/17 at 09:00 BLADIMIR BROWER Jan 24, 2017 14:34
--- NOTE | 2017-01-24 14:34 | HP ---
Date/Time of Note Date/Time of Note DATE: 01/24/17 TIME: 14:33 Assessment/Plan VTE Prophylaxis VTE Prophylaxis Intervention: SCD's Lines/Catheters Urinary Cath still in place: No Assessment/Plan Assessment/Plan - Klebsiella P and Proteus UTI, continue Rocephin. Dr. Galvan is asked to see patient in infection disease consultation. - Right foot wound, wound care consult evaluation. Dr. Keenan is asked to see patient in post podiatry consultation - History of spina bifida with quadriplegia. - History of hydrocephalus status post SERGEANT OF OFFICERS shunt. Further recommendations based on clinical course. Plan of care discussed with Dr. Huynh HPI/ROS Admit Date/Time Admit Date/Time Jan 23, 2017 at 19:46 Hx of Present Illness The patient is 19-year-old male known to me from previous admission. Patient is paraplegic with history of spina bifida status post multiple surgery, and history of hydrocephalus status post SERGEANT OF OFFICERS shunt placement. Patient is presented with symptoms of flank pain to the emergency room on January 07 and was discharged with prescription for ciprofloxacin. Patient culture came back with E. coli and multidrug-resistant Proteus. Patient's complaints of lower back and abdominal pain. Patient denies any fever chills denies any chest pain denies shortness of breath. Patient is admitted for further evaluation and management. PMH/Family/Social Past Medical History Per HPI Past Surgical History Per HPI Past Surgical Hx: other Family History Significant Family History: no pertinent family hx Social History Alcohol Use: none Smoking Status: Never smoker Drug Use: none Exam/Review of Systems Vital Signs Vitals Vital Signs Date Time Temp Pulse Resp B/P Pulse Ox O2 Delivery O2 Flow Rate FiO2 01/24/17 14:09 98.4 76 18 129/69 97 01/23/17 21:44 Room Air Exam Constitutional: alert, oriented Head: normocephalic Neck: supple Respiratory: normal air movement Cardiovascular: nl pulses Gastrointestinal: non-tender, soft Musculoskeletal: muscle weakness, nl extremities to inspection Extremities: other (Right foot wound) Neurological: nl mental status, other (Paraplegia) Skin: other (Multiple wounds) Labs Result Diagram: 01/23/17204201/23/172042 Medications Medications Current Medications Ceftriaxone Sodium (Rocephin) 1 gm Q24H IM ; Start 10/27/17 at 22:00 Acetaminophen/ Hydrocodone Bitart ([place] (5/325)) 1 tab Q4H PRN PO PAIN Last administered on 01/24/17t 09:57; Admin Dose 1 TAB; Start 01/24/17 at 00:00 Enoxaparin Sodium (Lovenox) 40 mg DAILY SC ; Start 01/24/17 at 09:00 BLADIMIR BROWER Jan 24, 2017 14:34
[2017-01-24 19:59] VITALS: BP 136/74; RESP 20
[2017-01-24] MEDS: COLLAGENASE 30 GM TUBE TOP SCH (21:00)
[2017-01-24] MEDS ORDERED: ERTAPENEM SODIUM 1 GM in SOD CHLORIDE 0.9% 100 ML IVPB SCH (22:00)
[2017-01-24] MEDS: CEFTRIAXONE 1 GM INJ IM SCH (23:18)
[2017-01-25 02:00] VITALS: BP 130/69; RESP 20
[2017-01-25] MEDS: HYDROCODONE/APAP (5/325) TAB PO PRN ×5 (04:10→20:54)
--- NOTE | 2017-01-25 04:45 | CONS ---
DATE OF ADMISSION: 01/23/2017 DATE OF CONSULTATION: 01/24/2017 INFECTIOUS DISEASE CONSULTATION REASON FOR CONSULTATION: Antibiotic management. HISTORY OF PRESENT ILLNESS: Kunal Dick is a 27-year-old paraplegic male with numerous hospitalizati ons for urinary tract infections. He comes in now with recurrent UTI. His past problems include: 1. Paraplegia secondary to spina bifida, status post multiple surgeries. 2. History of hydrocephalus, status post COMMERCIAL FISHING VESSEL OPERATOR shunt placement. The patient presented with flank into the emergency room on 01/07/2017, was discharged with prescrip tions for ciprofloxacin. Culture came back with E. coli and multiple resistant Proteus. The patien t now complains of lower back and abdominal pain. Denies any fever or chills or chest pain or short ness of breath. On admission, his white count was 13.6, H and H of 13.2 and 41.3, platelet count 39 4,000. BUN and creatinine 17/0.6. PAST MEDICAL HISTORY: Operations as outlined. FAMILY HISTORY: Noncontributory. SOCIAL HISTORY: Does not smoke, drink or abuse drugs. ALLERGIES: NONE TO PENICILLIN, SULFA OR FOODS. MEDICATIONS: Per chart. REVIEW OF SYSTEMS: As per HPI. PHYSICAL EXAMINATION: GENERAL: The patient is a very pleasant male who is alert, responsive, in no acute distress. VITAL SIGNS: Stable. He is afebrile. SKIN: Without generalized rash. HEENT: Within normal limits. NECK: Supple. LYMPH NODES: None palpable. CHEST: Decreased breath sounds at the bases. HEART: Without murmur or gallop. ABDOMEN: Soft, nontender, without organosplenomegaly or masses. EXTREMITIES: He has obvious muscle weakness and atrophy in the distal extremities. He has a right foot wound. RECTAL AND GENITAL: Deferred. NEUROLOGIC: The patient has paraplegia. He also has multiple wounds on his body. LABORATORY DATA: As noted, his white count was 13.6, H and H 13.2 and 41.3, platelet count 394,000. BUN and creatinine 17/0.6. His cultures are growing gram-negative rods greater than 10 to the 5th and the patient was started on ceftriaxone. His chest x-ray is pending, but was negative on the . IMPRESSION AND PLAN: I will dictate my findings to Dr. Huynh. Of note, is the fact that he is m ostly ALLERGIC TO PIPERACILLIN, TAZOBACTAM. Dictated By: DIAN ROUSSEAU MD, JD/BRADY Conf#: [id number] DID#: [id number]
[2017-01-25] MEDS: ENOXAPARIN 40 MG/0.4 ML SYG SC SCH (07:45)
[2017-01-25 08:06] VITALS: BP 136/72; RESP 16
[2017-01-25] MEDS: COLLAGENASE 30 GM TUBE TOP SCH (09:00)
--- NOTE | 2017-01-25 09:38 | PN ---
Date/Time of Note Date/Time of Note DATE: 01/25/17 TIME: 09:37 Assessment/Plan VTE Prophylaxis VTE Prophylaxis Intervention: other Lines/Catheters Urinary Cath still in place: No Assessment/Plan Chief Complaint/Hosp Course - Klebsiella P and Proteus UTI, continue Rocephin. Dr. Galvan is asked to see patient in infection disease consultation. - Right foot wound, wound care consult evaluation. Dr. Keenan is asked to see patient in post podiatry consultation - History of spina bifida with quadriplegia. - History of hydrocephalus status post UNIT MANAGER CONVENIENCE STORES shunt. Problems: Subjective 24 Hr Interval Summary Free Text/Dictation Patient complains of back pain Exam/Review of Systems Vital Signs Vitals Vital Signs Date Time Temp Pulse Resp B/P Pulse Ox O2 Delivery O2 Flow Rate FiO2 01/25/17 08:06 98.1 70 16 136/72 99 01/23/17 21:44 Room Air Intake and Output 01/24/17 01/24/17 01/25/17 15:00 23:00 07:00 Intake Total 320 ml 1480 ml 500 ml Balance 320 ml 1480 ml 500 ml Exam Constitutional: well developed Head: atraumatic, normocephalic Neck: supple Respiratory: diminished breath sounds Cardiovascular: regular rate and rhythm Gastrointestinal: non-tender, soft Extremities: normal pulses Results Result Diagram: 01/24/17 1749 01/24/17 1749 Results 24 hrs Laboratory Tests Test 01/24/17 17:49 White Blood Count 10.6 # Red Blood Count 5.24 Hemoglobin 14.3 Hematocrit 45.8 Mean Corpuscular Volume 87.4 Mean Corpuscular Hemoglobin 27.3 L Mean Corpuscular Hemoglobin Concent 31.2 L Red Cell Distribution Width 15.5 H Platelet Count 344 Mean Platelet Volume 10.3 Neutrophils % 57.1 Lymphocytes % 29.1 Monocytes % 9.0 Eosinophils % 3.8 Basophils % 0.5 Nucleated Red Blood Cells % 0.0 Neutrophils # 6.1 Lymphocytes # 3.1 H Monocytes # 1.0 H Eosinophils # 0.4 Basophils # 0.1 Nucleated Red Blood Cells # 0.0 Sodium Level 144 Potassium Level 3.7 Chloride Level 110 Carbon Dioxide Level 21 Anion Gap 17 H Blood Urea Nitrogen 21 H Creatinine 0.76 Glucose Level 97 Calcium Level 8.8 Medications Medications Current Medications Ceftriaxone Sodium (Rocephin) 1 gm Q24H IM Last administered on 01/24/17 23: 18; Admin Dose 1 GM; Start 01/24/17 at 22:00 Acetaminophen/ Hydrocodone Bitart ([place] (5/325)) 1 tab Q4H PRN PO PAIN Last administered on 01/25/17 08:33; Admin Dose 1 TAB; Start 01/24/17 at 00:00 Enoxaparin Sodium (Lovenox) 40 mg DAILY SC ; Start 01/24/17 at 09:00 Collagenase 1 applic 1 applic DAILY TOP ; Start 01/24/17 at 21:00 Ertapenem/Sodium Chloride (Invanz/NS) 100 ml @ 200 mls/hr Q24H IVPB ; Start at 22:00 RADHA MURCIA Jan 25, 2017 09:38
[2017-01-25 14:01] VITALS: BP 129/60; RESP 16
--- NOTE | 2017-01-25 16:40 | CONS ---
Date/Time of Note Date/Time of Note DATE: 01/25/17 TIME: 16:29 Assessment/Plan Assessment/Plan Chief Complaint/Hosp Course ID PROGRESS NOTE TOTAL ABX DAY # => Ceftriaxone IM (on order by PCP) 24H INTERVAL SUMMARY * A/A/O-> currently resting during quiet time, no fevers, VSS, NAD * Blood Cx (-) to date * 01/24/17 URINE URINE CULTURE Preliminary Organism 1 ESCHERICHIA COLI COLONY COUNT >100,000 CFU/ml Organism 2 GRAM NEGATIVE ISREAL COLONY COUNT 20,000 - 30,000 CFU/ml E COLI M.I.C. RX --------- --- AMPICILLIN >=32 R CEFAZOLIN S CEFOTAXIME S CIPROFLOXACIN >=4 R GENTAMICIN <=1 S LEVOFLOXACIN >=8 R NITROFURANTOIN <=16 S TOBRAMYCIN <=1 S TRIMETHOPRIM/SULFAMETHOXAZOLE >=320 R PHYSICAL EXAMINATION: GENERAL: Obese HEENT: Unremarkable CHEST: Equal chest rise bilaterally, without dyspnea on observation HEART: Pulse RRR ABDOMEN: Soft EXTREMITIES: Warm SKIN: See hard chart skin assessment ID ASSESSMENT: 26 yo Morbid Obese M w/PMHx spina bifida admit with: 1. Recurrent urinary tract infection * 01/24/17 URINE URINE CULTURE Preliminary Organism 1 ESCHERICHIA COLI COLONY COUNT >100,000 CFU/ml Organism 2 GRAM NEGATIVE ISREAL COLONY COUNT 20,000 - 30,000 CFU/ml 2. Neurogenic bladder 3. Paraplegia secondary to spina bifida, status post multiple surgeries. 4. History of hydrocephalus, status post PLANT TECHNICIAN/CONTROL ROOM OPERATOR shunt placement. INVASIVES: PIV, VPS ABX ALLERGY: PCN CURRENT ABX: =>Ceftriaxone IM (on order by PCP) ID RECOMMENDATIONS: 1. Ertapenem on order; however patient refused placement of PIV, he is requesting PICC Line 2. Recommend place PICC per Primary Care order if they concur; otherwise continue Ceftriaxone IM . Problems: Consultation Date/Type/Reason Admit Date/Time Jan 23, 2017 at 19:46 Initial Consult Date Exam/Review of Systems Vital Signs Vitals Vital Signs Date Time Temp Pulse Resp B/P Pulse Ox O2 Delivery O2 Flow Rate FiO2 01/25/17 14:01 98.1 66 16 129/60 96 01/23/17 21:44 Room Air Intake and Output 01/24/17 01/24/17 01/25/17 15:00 23:00 07:00 Intake Total 320 ml 1480 ml 500 ml Balance 320 ml 1480 ml 500 ml Results Result Diagram: 01/25/17 1041 01/25/17 1041 Results 24 hrs Laboratory Tests Test 01/24/17 17:49 01/25/17 10:41 White Blood Count 10.6 # 8.7 Red Blood Count 5.24 5.10 Hemoglobin 14.3 13.4 L Hematocrit 45.8 43.7 Mean Corpuscular Volume 87.4 85.7 Mean Corpuscular Hemoglobin 27.3 L 26.3 L Mean Corpuscular Hemoglobin Concent 31.2 L 30.7 L Red Cell Distribution Width 15.5 H 15.4 H Platelet Count 344 363 Mean Platelet Volume 10.3 9.7 Neutrophils % 57.1 54.5 Lymphocytes % 29.1 31.2 Monocytes % 9.0 8.6 Eosinophils % 3.8 4.8 Basophils % 0.5 0.3 Nucleated Red Blood Cells % 0.0 0.0 Neutrophils # 6.1 4.7 Lymphocytes # 3.1 H 2.7 Monocytes # 1.0 H 0.8 Eosinophils # 0.4 0.4 Basophils # 0.1 0.0 Nucleated Red Blood Cells # 0.0 0.0 Sodium Level 144 142 Potassium Level 3.7 3.5 Chloride Level 110 107 Carbon Dioxide Level 21 25 Anion Gap 17 H 14 Blood Urea Nitrogen 21 H 17 Creatinine 0.76 0.70 Glucose Level 97 116 Calcium Level 8.8 8.7 Medications Medications Current Medications Ceftriaxone Sodium (Rocephin) 1 gm Q24H IM Last administered on 01/24/17 23: 18; Admin Dose 1 GM; Start 01/24/17 at 22:00 Acetaminophen/ Hydrocodone Bitart ([place] (5/325)) 1 tab Q4H PRN PO PAIN Last administered on 01/25/17 12:43; Admin Dose 1 TAB; Start 01/24/17 at 00:00 Enoxaparin Sodium (Lovenox) 40 mg DAILY SC ; Start 01/24/17 at 09:00 Collagenase 1 applic 1 applic DAILY TOP ; Start 01/24/17 at 21:00 Ertapenem/Sodium Chloride (Invanz/NS) 100 ml @ 200 mls/hr Q24H IVPB ; Start at 22:00 DALIA OCASIO NP Jan 25, 2017 16:40
[2017-01-25 19:26] VITALS: BP 131/60; RESP 18
[2017-01-25] MEDS: CEFTRIAXONE 1 GM INJ IM SCH ×2 (22:00→23:57)
[2017-01-26] MEDS: HYDROCODONE/APAP (5/325) TAB PO PRN ×5 (00:58→22:30)
[2017-01-26 01:27] VITALS: BP 148/76; RESP 18
[2017-01-26 07:45] VITALS: BP 143/74; RESP 20
[2017-01-26] MEDS: ENOXAPARIN 40 MG/0.4 ML SYG SC SCH (08:56)
--- NOTE | 2017-01-26 10:43 | PN ---
Date/Time of Note Date/Time of Note DATE: 01/26/17 TIME: 10:42 Assessment/Plan VTE Prophylaxis VTE Prophylaxis Intervention: other Lines/Catheters Urinary Cath still in place: No Assessment/Plan Chief Complaint/Hosp Course - Klebsiella P and Proteus UTI, continue Rocephin. Dr. Galvan is asked to see patient in infection disease consultation. - Right foot wound, wound care consult evaluation. Dr. Keenan is asked to see patient in post podiatry consultation - History of spina bifida with quadriplegia. - History of hydrocephalus status post PRECISION OPTICS TECHNICIAN shunt. Problems: Subjective 24 Hr Interval Summary Free Text/Dictation Patient resting comfortably Exam/Review of Systems Vital Signs Vitals Vital Signs Date Time Temp Pulse Resp B/P Pulse Ox O2 Delivery O2 Flow Rate FiO2 01/26/17 07:45 98.1 71 20 143/74 98 01/23/17 21:44 Room Air Intake and Output 01/25/17 01/25/17 01/26/17 15:00 23:00 07:00 Intake Total 1200 ml Balance 1200 ml Exam Constitutional: well developed Head: atraumatic, normocephalic Neck: supple Respiratory: diminished breath sounds Cardiovascular: regular rate and rhythm Gastrointestinal: non-tender, soft Extremities: normal pulses Results Result Diagram: 01/25/17 1041 01/25/17 1041 Medications Medications Current Medications Ceftriaxone Sodium (Rocephin) 1 gm Q24H IM Last administered on 01/25/17 23: 57; Admin Dose 1 GM; Start 01/24/17 at 22:00 Acetaminophen/ Hydrocodone Bitart ([place] (5/325)) 1 tab Q4H PRN PO PAIN Last administered on 01/26/17 05:20; Admin Dose 1 TAB; Start 01/24/17 at 00:00 Enoxaparin Sodium (Lovenox) 40 mg DAILY SC ; Start 01/24/17 at 09:00 Collagenase (Santyl) 1 applic DAILY TOP ; Start 01/24/17 at 21:00 RADHA MURCIA Jan 26, 2017 10:43
--- NOTE | 2017-01-26 10:43 | PN ---
Date/Time of Note Date/Time of Note DATE: 01/26/17 TIME: 10:42 Assessment/Plan VTE Prophylaxis VTE Prophylaxis Intervention: other Lines/Catheters Urinary Cath still in place: No Assessment/Plan Chief Complaint/Hosp Course - Klebsiella P and Proteus UTI, continue Rocephin. Dr. Galvan is asked to see patient in infection disease consultation. - Right foot wound, wound care consult evaluation. Dr. eKenan is asked to see patient in post podiatry consultation - History of spina bifida with quadriplegia. - History of hydrocephalus status post LICENSING REGISTRATION EXAMINER shunt. Problems: Subjective 24 Hr Interval Summary Free Text/Dictation Patient resting comfortably Exam/Review of Systems Vital Signs Vitals Vital Signs Date Time Temp Pulse Resp B/P Pulse Ox O2 Delivery O2 Flow Rate FiO2 01/26/17 07:45 98.1 71 20 143/74 98 01/23/17 21:44 Room Air Intake and Output 01/25/17 01/25/17 01/26/17 15:00 23:00 07:00 Intake Total 1200 ml Balance 1200 ml Exam Constitutional: well developed Head: atraumatic, normocephalic Neck: supple Respiratory: diminished breath sounds Cardiovascular: regular rate and rhythm Gastrointestinal: non-tender, soft Extremities: normal pulses Results Result Diagram: 01/25/17 1041 01/25/17 1041 Medications Medications Current Medications Ceftriaxone Sodium (Rocephin) 1 gm Q24H IM Last administered on 01/25/17 23: 57; Admin Dose 1 GM; Start 01/24/17 at 22:00 Acetaminophen/ Hydrocodone Bitart ([place] (5/325)) 1 tab Q4H PRN PO PAIN Last administered on 01/26/17 05:20; Admin Dose 1 TAB; Start 01/24/17 at 00:00 Enoxaparin Sodium (Lovenox) 40 mg DAILY SC ; Start 01/24/17 at 09:00 Collagenase (Santyl) 1 applic DAILY TOP ; Start 01/24/17 at 21:00 RADHA MURCIA Jan 26, 2017 10:43
--- NOTE | 2017-01-26 10:43 | PN ---
Date/Time of Note Date/Time of Note DATE: 01/26/17 TIME: 10:42 Assessment/Plan VTE Prophylaxis VTE Prophylaxis Intervention: other Lines/Catheters Urinary Cath still in place: No Assessment/Plan Chief Complaint/Hosp Course - Klebsiella P and Proteus UTI, continue Rocephin. Dr. Galvan is asked to see patient in infection disease consultation. - Right foot wound, wound care consult evaluation. Dr. Keenan is asked to see patient in post podiatry consultation - History of spina bifida with quadriplegia. - History of hydrocephalus status post QC TECH shunt. Problems: Subjective 24 Hr Interval Summary Free Text/Dictation Patient resting comfortably Exam/Review of Systems Vital Signs Vitals Vital Signs Date Time Temp Pulse Resp B/P Pulse Ox O2 Delivery O2 Flow Rate FiO2 01/26/17 07:45 98.1 71 20 143/74 98 01/23/17 21:44 Room Air Intake and Output 01/25/17 01/25/17 01/26/17 15:00 23:00 07:00 Intake Total 1200 ml Balance 1200 ml Exam Constitutional: well developed Head: atraumatic, normocephalic Neck: supple Respiratory: diminished breath sounds Cardiovascular: regular rate and rhythm Gastrointestinal: non-tender, soft Extremities: normal pulses Results Result Diagram: 01/25/17 1041 01/25/17 1041 Medications Medications Current Medications Ceftriaxone Sodium (Rocephin) 1 gm Q24H IM Last administered on 01/25/17 23: 57; Admin Dose 1 GM; Start 01/24/17 at 22:00 Acetaminophen/ Hydrocodone Bitart ([place] (5/325)) 1 tab Q4H PRN PO PAIN Last administered on 01/26/17 05:20; Admin Dose 1 TAB; Start 01/24/17 at 00:00 Enoxaparin Sodium (Lovenox) 40 mg DAILY SC ; Start 01/24/17 at 09:00 Collagenase (Santyl) 1 applic DAILY TOP ; Start 01/24/17 at 21:00 RADHA MURCIA Jan 26, 2017 10:43
[2017-01-26] MEDS: COLLAGENASE 30 GM TUBE TOP SCH (12:10)
[2017-01-26 13:58] VITALS: BP 129/69; RESP 20
--- NOTE | 2017-01-26 19:33 | CONS ---
Date/Time of Note Date/Time of Note DATE: 01/26/17 TIME: 19:31 Assessment/Plan Assessment/Plan Chief Complaint/Hosp Course ID PROGRESS NOTE TOTAL ABX DAY # 3=> Ceftriaxone IM (no IV access) 24H INTERVAL SUMMARY * Clincally status quo -- resting comfortably,no fevers, VSS, NAD * Blood Cx (-) to date * URINE CULTURE Final Organism 1 ESCHERICHIA COLI COLONY COUNT >100,000 CFU/ml Organism 2 PROTEUS MIRABILIS COLONY COUNT 20,000 - 30,000 CFU/ml E COLI P. MIRAB M.I.C. RX M.I.C. RX --------- --- --------- --- AMIKACIN <=2 S AMPICILLIN >=32 R <=2 S CEFAZOLIN S CEFOTAXIME S S CIPROFLOXACIN >=4 R >=4 R GENTAMICIN <=1 S 8 I LEVOFLOXACIN >=8 R >=8 R NITROFURANTOIN <=16 S 128 R TOBRAMYCIN <=1 S 8 I TRIMETHOPRIM/SULFAMETHOXAZOLE >=320 R >=320 R PHYSICAL EXAMINATION: GENERAL: Obese HEENT: Unremarkable CHEST: Equal chest rise bilaterally, without dyspnea on observation HEART: Pulse RRR ABDOMEN: Soft EXTREMITIES: Warm SKIN: See hard chart skin assessment ID ASSESSMENT: 26 yo Morbid Obese M w/PMHx spina bifida admit with: 1. Recurrent urinary tract infection * 01/24/17 URINE URINE CULTURE Final Organism 1 ESCHERICHIA COLI COLONY COUNT >100,000 CFU/ml Organism 2 PROTEUS MIRABILIS COLONY COUNT 20,000 - 30,000 CFU/ml 2. Neurogenic bladder 3. Paraplegia secondary to spina bifida, status post multiple surgeries. 4. History of hydrocephalus, status post SOLAR FIELD INSTALLATION CREW MEMBER shunt placement. INVASIVES: PIV, VPS ABX ALLERGY: PCN CURRENT ABX: => 3=> Ceftriaxone IM (no IV access) ID RECOMMENDATIONS: 1. Ertapenem on order; however patient refused placement of PIV, he is requesting PICC Line 2. Recommend place PICC per Primary Care order if they concur; otherwise continue Ceftriaxone IM . Problems: Consultation Date/Type/Reason Admit Date/Time Jan 23, 2017 at 19:46 Exam/Review of Systems Vital Signs Vitals Vital Signs Date Time Temp Pulse Resp B/P Pulse Ox O2 Delivery O2 Flow Rate FiO2 01/26/17 13:58 98.4 64 20 129/69 97 01/23/17 21:44 Room Air Intake and Output 01/25/17 01/25/17 01/26/17 15:00 23:00 07:00 Intake Total 1200 ml Balance 1200 ml Results Result Diagram: 01/25/17 1041 01/25/17 1041 Medications Medications Current Medications Ceftriaxone Sodium (Rocephin) 1 gm Q24H IM Last administered on 01/25/17 23: 57; Admin Dose 1 GM; Start 01/24/17 at 22:00 Acetaminophen/ Hydrocodone Bitart ([place] (5/325)) 1 tab Q4H PRN PO PAIN Last administered on 01/26/17 17:37; Admin Dose 1 TAB; Start 01/24/17 at 00:00 Enoxaparin Sodium (Lovenox) 40 mg DAILY SC ; Start 01/24/17 at 09:00 Collagenase (Santyl) 1 applic DAILY TOP Last administered on 01/26/17 12:10; Admin Dose 1 APPLIC; Start 01/24/17 at 21:00 DALIA OCASIO NP Jan 26, 2017 19:33
[2017-01-26 19:42] VITALS: BP 118/59; RESP 20
[2017-01-26] MEDS: CEFTRIAXONE 1 GM INJ IM SCH (23:06)
[2017-01-27 02:00] VITALS: BP 152/79; RESP 18
[2017-01-27] MEDS: HYDROCODONE/APAP (5/325) TAB PO PRN ×5 (02:19→20:48)
[2017-01-27 07:51] VITALS: BP 126/64; RESP 20
[2017-01-27] MEDS: ENOXAPARIN 40 MG/0.4 ML SYG SC SCH (09:00)
[2017-01-27] MEDS: COLLAGENASE 30 GM TUBE TOP SCH (12:24)
[2017-01-27 14:01] VITALS: BP 130/63; RESP 20
--- NOTE | 2017-01-27 16:20 | PN ---
Date/Time of Note Date/Time of Note DATE: 01/27/17 TIME: 16:16 Assessment/Plan VTE Prophylaxis VTE Prophylaxis Intervention: SCD's Lines/Catheters Urinary Cath still in place: No Assessment/Plan Chief Complaint/Hosp Course Patient remains hemodynamically stable, afebrile. Assessment/Plan - Klebsiella P and Proteus UTI, continue Rocephin. Dr. Galvan is following in infection disease consultation. - Neurogenic bladder - Right foot wound, wound care consult evaluation. Dr. Keenan is asked to see patient in post podiatry consultation - History of spina bifida with quadriplegia. 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 Further recommendations based on clinical course. Plan of care discussed with Dr. Huynh Problems: Exam/Review of Systems Vital Signs Vitals Vital Signs Date Time Temp Pulse Resp B/P Pulse Ox O2 Delivery O2 Flow Rate FiO2 01/27/17 14:01 97.1 62 20 130/63 97 01/23/17 21:44 Room Air Intake and Output 01/26/17 01/26/17 01/27/17 15:00 23:00 07:00 Intake Total 1440 ml 1080 ml Output Total 0 ml Balance 1440 ml 1080 ml Exam Constitutional: alert, oriented Respiratory: normal air movement Cardiovascular: nl pulses Gastrointestinal: non-tender, soft Musculoskeletal: muscle weakness, nl extremities to inspection Extremities: other (Right foot wound) Neurological: nl mental status, other (Paraplegia) Skin: other (Multiple wounds) Results Result Diagram: 01/27/17 0504 01/27/17 0504 Results 24 hrs Laboratory Tests Test 01/27/17 05:04 White Blood Count 9.7 Red Blood Count 4.89 Hemoglobin 13.2 L Hematocrit 42.2 Mean Corpuscular Volume 86.3 Mean Corpuscular Hemoglobin 27.0 L Mean Corpuscular Hemoglobin Concent 31.3 L Red Cell Distribution Width 15.0 H Platelet Count 357 Mean Platelet Volume 9.5 Neutrophils % 50.6 Lymphocytes % 34.9 Monocytes % 7.9 Eosinophils % 5.6 Basophils % 0.4 Nucleated Red Blood Cells % 0.0 Neutrophils # 4.9 Lymphocytes # 3.4 H Monocytes # 0.8 Eosinophils # 0.5 Basophils # 0.0 Nucleated Red Blood Cells # 0.0 Sodium Level 142 Potassium Level 3.8 Chloride Level 106 Carbon Dioxide Level 27 Anion Gap 13 Blood Urea Nitrogen 19 Creatinine 0.65 Glucose Level 118 Calcium Level 8.7 Medications Medications Current Medications Ceftriaxone Sodium (Rocephin) 1 gm Q24H IM Last administered on 01/26/17 23: 06; Admin Dose 1 GM; Start 01/24/17 at 22:00 Acetaminophen/ Hydrocodone Bitart ([place] (5/325)) 1 tab Q4H PRN PO PAIN Last administered on 01/27/17 12:23; Admin Dose 1 TAB; Start 01/24/17 at 00:00 Enoxaparin Sodium (Lovenox) 40 mg DAILY SC ; Start 01/24/17 at 09:00 Collagenase (Santyl) 1 applic DAILY TOP Last administered on 01/27/17 12:24; Admin Dose 1 APPLIC; Start 01/24/17 at 21:00 BLADIMIR BROWER Jan 27, 2017 16:20
--- NOTE | 2017-01-27 17:53 | CONS ---
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 I also ordered x-rays of the right ankle for evaluation of the bone under the wound. Patient may require CT or MRI pending no contraindications. Patient will be followed in-house. Thank you again for involving me in the care of this patient. If you have any questions regarding this case, please feel free to contact me at pager: [phone] or reach me at mobile: [phone]. Consultation Date/Type/Reason Admit Date/Time Jan 23, 2017 at 19:46 Date of Consultation: Jan 27, 2017 Type of Consultation: Foot and ankle surgery Reason for Consultation Evaluation of open wound of the right medial malleolus Hx of Present Illness Thank you very much for your kind consultation. As you know this is a 19-year- old male patient who is known to me from previous admissions. Patient is paraplegic and has had an open wound on his right medial malleolus area for a long time. Patient reports the wound continues and is getting worse. I was consulted for evaluation and treatment. Patient has past medical history significant for paraplegia, history of spina bifida, history of hydrocephalus, morbid obesity. Patient denies fever and chills and reports no chest pain or shortness of breath. Constitutional: no complaints Eyes: no complaints ENT: no complaints Respiratory: no complaints Cardiovascular: no complaints Genitourinary: no complaints Past Surgical History Past Surgical Hx: other Social History Alcohol Use: none Smoking Status: Never smoker Drug Use: none Exam/Review of Systems Vital Signs Vitals Vital Signs Date Time Temp Pulse Resp B/P Pulse Ox O2 Delivery O2 Flow Rate FiO2 01/27/17 14:01 97.1 62 20 130/63 97 01/23/17 21:44 Room Air Intake and Output 01/26/17 01/26/17 01/27/17 15:00 23:00 07:00 Intake Total 1440 ml 1080 ml Output Total 0 ml Balance 1440 ml 1080 ml Exam General appearance: Patient is morbidly obese; appears to be in no acute distress, laying supine in bed. Vascular exam: Pedal pulses: weakly palpable bilateral feet; CFT: instantaneous on all toes; TG: normal bilateral lower extremity; Edema: Edema present bilateral lower extremity; VV: none noted on exam Neurological exam: Protective sensation is diminished to sharp, dull, vibratory and temperature stimuli bilaterally. Deep tendon reflexes are normal bilaterally. Negative Tinel sign Dermatological exam: Open wound present medial right ankle with fibronecrotic tissue and granulation tissue. Surrounding skin is hyper keratotic and there is mild undermining. No malodor present. No pus and no bleeding present. No erythema noted on lower extremity exam Toenails: Toenails are dystrophic, discolored with subungual debris Musculoskeletal exam: No tenderness on palpation of bilateral feet and ankles. Contracted toes noted on both feet. Rectus foot type noted. Muscle power is 5/ 5 bilateral lower extremity No imaging studies for review Labs reviewed. Results Result Diagram: 01/27/17 0504 01/27/17 0504 Results 24 hrs Laboratory Tests Test 01/27/17 05:04 White Blood Count 9.7 Red Blood Count 4.89 Hemoglobin 13.2 L Hematocrit 42.2 Mean Corpuscular Volume 86.3 Mean Corpuscular Hemoglobin 27.0 L Mean Corpuscular Hemoglobin Concent 31.3 L Red Cell Distribution Width 15.0 H Platelet Count 357 Mean Platelet Volume 9.5 Neutrophils % 50.6 Lymphocytes % 34.9 Monocytes % 7.9 Eosinophils % 5.6 Basophils % 0.4 Nucleated Red Blood Cells % 0.0 Neutrophils # 4.9 Lymphocytes # 3.4 H Monocytes # 0.8 Eosinophils # 0.5 Basophils # 0.0 Nucleated Red Blood Cells # 0.0 Sodium Level 142 Potassium Level 3.8 Chloride Level 106 Carbon Dioxide Level 27 Anion Gap 13 Blood Urea Nitrogen 19 Creatinine 0.65 Glucose Level 118 Calcium Level 8.7 Medications Medications Current Medications Ceftriaxone Sodium (Rocephin) 1 gm Q24H IM Last administered on 01/26/17 23: 06; Admin Dose 1 GM; Start 01/24/17 at 22:00 Acetaminophen/ Hydrocodone Bitart ([place] (5/325)) 1 tab Q4H PRN PO PAIN Last administered on 01/27/17 17:00; Admin Dose 1 TAB; Start 01/24/17 at 00:00 Enoxaparin Sodium (Lovenox) 40 mg DAILY SC ; Start 01/24/17 at 09:00 Collagenase (Santyl) 1 applic DAILY TOP Last administered on 01/27/17t 12:24; Admin Dose 1 APPLIC; Start 01/24/17 at 21:00 SEVERIANO MENARD DPM Jan 27, 2017 17:53
[2017-01-27 20:19] VITALS: BP 142/74; RESP 20
--- NOTE | 2017-01-27 20:31 | RADRPT ---
PROCEDURE: XR Right Ankle. CLINICAL INDICATION: Right ankle pain. Soft tissue ulcer. TECHNIQUE: 3 views. Frontal, lateral, and oblique. COMPARISON: 03/06/2015. FINDINGS: There is an old healed fracture of the distal tibia involving the shaft and medial malleolus with as sociated deformity. There is no acute fracture or dislocation. There is a soft tissue ulcer overlyin g the medial malleolus. There is diffuse soft tissue swelling. There is deformity of the tibiotalar joint related to the fracture deformity. The articular surfaces are otherwise intact. There is no lytic or blastic lesion. There is no radiopaque foreign body. IMPRESSION: 1. Diffuse osteopenia. 2. Diffuse soft tissue swelling. 3. Soft tissue ulcer overlying the medial malleolus. 4. Deformity of the tibiotalar joint related to the fracture. 5. No acute fracture or lytic lesion. RPTAT: QQ .Avery Vizcarra MD, MD Date Time Electronically viewed and signed by .Avery Vizcarra MD, on 01/27/2017 20:30 .R/
[2017-01-27] MEDS: CEFTRIAXONE 1 GM INJ IM SCH (23:23)
[2017-01-28] MEDS: HYDROCODONE/APAP (5/325) TAB PO PRN ×5 (01:04→22:08)
[2017-01-28 02:35] VITALS: BP 139/81; RESP 18
--- NOTE | 2017-01-28 06:36 | PN ---
DATE: 01/27/2017 SUBJECTIVE: No acute changes per report. The patient is sleeping, looks comfortable, no fevers. ALLERGIES: Zosyn. ANTIMICROBIALS: The patient is on Rocephin intramuscularly. LABORATORY DATA: WBC 9.7, platelets 357, no shift. BUN 19, creatinine 0.65. MICROBIOLOGY: Urine culture on admission grew E. coli and Proteus mirabilis. PHYSICAL EXAMINATION: GENERAL: This is a morbidly obese, young man who is alert, in no distress. HEENT: Head atraumatic, normocephalic. Sclerae anicteric. Buccal mucosa dry. NECK: Obese. CHEST: Rise symmetrical. Breath sounds diminished to bases. HEART: S1, S2. ABDOMEN: Soft. Bowel sounds present. EXTREMITIES: With trace edema. ASSESSMENT: 1. Recurrent urinary tract infection. 2. Morbid obesity. 3. Neurogenic bladder. 4. Paraplegia secondary to spina bifida. 5. History of hydrocephalus, status post ventriculoperitoneal shunt. PLAN: Continue present care. Continue on current antibiotics for 7 to 10 days. Monitor postvoid r esiduals. Dictated By: PAT RODRIGUEZ SUR[employer]Y PARTY CHIEF for DIAN ROUSSEAU MD NI/NTS Conf#: [id number] DID#: [id number]
--- NOTE | 2017-01-28 06:36 | PN ---
DATE: 01/27/2017 SUBJECTIVE: No acute changes per report. The patient is sleeping, looks comfortable, no fevers. ALLERGIES: Zosyn. ANTIMICROBIALS: The patient is on Rocephin intramuscularly. LABORATORY DATA: WBC 9.7, platelets 357, no shift. BUN 19, creatinine 0.65. MICROBIOLOGY: Urine culture on admission grew E. coli and Proteus mirabilis. PHYSICAL EXAMINATION: GENERAL: This is a morbidly obese, young man who is alert, in no distress. HEENT: Head atraumatic, normocephalic. Sclerae anicteric. Buccal mucosa dry. NECK: Obese. CHEST: Rise symmetrical. Breath sounds diminished to bases. HEART: S1, S2. ABDOMEN: Soft. Bowel sounds present. EXTREMITIES: With trace edema. ASSESSMENT: 1. Recurrent urinary tract infection. 2. Morbid obesity. 3. Neurogenic bladder. 4. Paraplegia secondary to spina bifida. 5. History of hydrocephalus, status post ventriculoperitoneal shunt. PLAN: Continue present care. Continue on current antibiotics for 7 to 10 days. Monitor postvoid r esiduals. Dictated By: PAT RODRIGUEZ DATA RECOVERY PLANNER for DIAN ROUSSEAU MD NI/NTS Conf#: [id number] DID#: [id number]
--- NOTE | 2017-01-28 06:36 | PN ---
DATE: 01/27/2017 SUBJECTIVE: No acute changes per report. The patient is sleeping, looks comfortable, no fevers. ALLERGIES: Zosyn. ANTIMICROBIALS: The patient is on Rocephin intramuscularly. LABORATORY DATA: WBC 9.7, platelets 357, no shift. BUN 19, creatinine 0.65. MICROBIOLOGY: Urine culture on admission grew E. coli and Proteus mirabilis. PHYSICAL EXAMINATION: GENERAL: This is a morbidly obese, young man who is alert, in no distress. HEENT: Head atraumatic, normocephalic. Sclerae anicteric. Buccal mucosa dry. NECK: Obese. CHEST: Rise symmetrical. Breath sounds diminished to bases. HEART: S1, S2. ABDOMEN: Soft. Bowel sounds present. EXTREMITIES: With trace edema. ASSESSMENT: 1. Recurrent urinary tract infection. 2. Morbid obesity. 3. Neurogenic bladder. 4. Paraplegia secondary to spina bifida. 5. History of hydrocephalus, status post ventriculoperitoneal shunt. PLAN: Continue present care. Continue on current antibiotics for 7 to 10 days. Monitor postvoid r esiduals. Dictated By: PAT RODRIGUEZ [employer] WORK[employer] for DIAN ROUSSEAU MD NI/NTS Conf#: [id number] DID#: [id number]
[2017-01-28 07:41] VITALS: BP 140/63; RESP 20
[2017-01-28] MEDS: ENOXAPARIN 40 MG/0.4 ML SYG SC SCH (09:00)
[2017-01-28] MEDS: COLLAGENASE 30 GM TUBE TOP SCH (09:14)
--- NOTE | 2017-01-28 14:05 | PN ---
Date/Time of Note Date/Time of Note DATE: 01/28/17 TIME: 14:03 Assessment/Plan VTE Prophylaxis VTE Prophylaxis Intervention: SCD's Lines/Catheters Urinary Cath still in place: No Assessment/Plan Chief Complaint/Hosp Course Patient remains hemodynamically stable, afebrile. Assessment/Plan - Klebsiella P and Proteus UTI, continue Rocephin. Dr. Galvan is following in infection disease consultation. - Neurogenic bladder - Right foot wound, wound care consult evaluation. Dr. Keenan is following in post podiatry consultation - History of spina bifida with quadriplegia. - History of hydrocephalus status post BUS BOY shunt. Further recommendations based on clinical course. Plan of care discussed with Dr. Huynh Problems: Exam/Review of Systems Vital Signs Vitals Vital Signs Date Time Temp Pulse Resp B/P Pulse Ox O2 Delivery O2 Flow Rate FiO2 01/28/17 07:41 98.0 81 20 140/63 98 Intake and Output 01/27/17 01/27/17 01/28/17 15:00 23:00 07:00 Intake Total 1560 ml 600 ml Output Total 0 ml Balance 1560 ml 600 ml Exam Constitutional: alert, oriented Respiratory: normal air movement Cardiovascular: nl pulses Gastrointestinal: non-tender, soft Musculoskeletal: muscle weakness, nl extremities to inspection Extremities: other (Right foot wound) Neurological: nl mental status, other (Paraplegia) Skin: other (Multiple wounds) Results Result Diagram: 01/27/17 0504 01/27/17 0504 Medications Medications Current Medications Ceftriaxone Sodium (Rocephin) 1 gm Q24H IM Last administered on 01/27/17 23: 23; Admin Dose 1 GM; Start 01/24/17 at 22:00 Acetaminophen/ Hydrocodone Bitart ([place] (5/325)) 1 tab Q4H PRN PO PAIN Last administered on 01/28/17 13:28; Admin Dose 1 TAB; Start 01/24/17 at 00:00 Enoxaparin Sodium (Lovenox) 40 mg DAILY SC ; Start 01/24/17 at 09:00 Collagenase (Santyl) 1 applic DAILY TOP Last administered on 01/28/17 09:14; Admin Dose 1 APPLIC; Start 01/24/17 at 21:00 BLADIMIR BROWER Jan 28, 2017 14:05
--- NOTE | 2017-01-28 14:05 | PN ---
Date/Time of Note Date/Time of Note DATE: 01/28/17 TIME: 14:03 Assessment/Plan VTE Prophylaxis VTE Prophylaxis Intervention: SCD's Lines/Catheters Urinary Cath still in place: No Assessment/Plan Chief Complaint/Hosp Course Patient remains hemodynamically stable, afebrile. Assessment/Plan - Klebsiella P and Proteus UTI, continue Rocephin. Dr. Galvan is following in infection disease consultation. - Neurogenic bladder - Right foot wound, wound care consult evaluation. Dr. Keenan is following in post podiatry consultation - History of spina bifida with quadriplegia. 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 Further recommendations based on clinical course. Plan of care discussed with Dr. Huynh Problems: Exam/Review of Systems Vital Signs Vitals Vital Signs Date Time Temp Pulse Resp B/P Pulse Ox O2 Delivery O2 Flow Rate FiO2 01/28/17 07:41 98.0 81 20 140/63 98 Intake and Output 01/27/17 01/27/17 01/28/17 15:00 23:00 07:00 Intake Total 1560 ml 600 ml Output Total 0 ml Balance 1560 ml 600 ml Exam Constitutional: alert, oriented Respiratory: normal air movement Cardiovascular: nl pulses Gastrointestinal: non-tender, soft Musculoskeletal: muscle weakness, nl extremities to inspection Extremities: other (Right foot wound) Neurological: nl mental status, other (Paraplegia) Skin: other (Multiple wounds) Results Result Diagram: 01/27/17 0504 01/27/17 0504 Medications Medications Current Medications Ceftriaxone Sodium (Rocephin) 1 gm Q24H IM Last administered on 01/27/17 23: 23; Admin Dose 1 GM; Start 01/24/17 at 22:00 Acetaminophen/ Hydrocodone Bitart ([place] (5/325)) 1 tab Q4H PRN PO PAIN Last administered on 01/28/17 13:28; Admin Dose 1 TAB; Start 01/24/17 at 00:00 Enoxaparin Sodium (Lovenox) 40 mg DAILY SC ; Start 01/24/17 at 09:00 Collagenase (Santyl) 1 applic DAILY TOP Last administered on 01/28/17 09:14; Admin Dose 1 APPLIC; Start 01/24/17 at 21:00 BLADIMIR BROWER Jan 28, 2017 14:05
--- NOTE | 2017-01-28 14:05 | PN ---
Date/Time of Note Date/Time of Note DATE: 01/28/17 TIME: 14:03 Assessment/Plan VTE Prophylaxis VTE Prophylaxis Intervention: SCD's Lines/Catheters Urinary Cath still in place: No Assessment/Plan Chief Complaint/Hosp Course Patient remains hemodynamically stable, afebrile. Assessment/Plan - Klebsiella P and Proteus UTI, continue Rocephin. Dr. Galvan is following in infection disease consultation. - Neurogenic bladder - Right foot wound, wound care consult evaluation. Dr. Keenan is following in post podiatry consultation - History of spina bifida with quadriplegia. - History of hydrocephalus status post INSOLE TACK PULLER HAND shunt. Further recommendations based on clinical course. Plan of care discussed with Dr. Huynh Problems: Exam/Review of Systems Vital Signs Vitals Vital Signs Date Time Temp Pulse Resp B/P Pulse Ox O2 Delivery O2 Flow Rate FiO2 01/28/17 07:41 98.0 81 20 140/63 98 Intake and Output 01/27/17 01/27/17 01/28/17 15:00 23:00 07:00 Intake Total 1560 ml 600 ml Output Total 0 ml Balance 1560 ml 600 ml Exam Constitutional: alert, oriented Respiratory: normal air movement Cardiovascular: nl pulses Gastrointestinal: non-tender, soft Musculoskeletal: muscle weakness, nl extremities to inspection Extremities: other (Right foot wound) Neurological: nl mental status, other (Paraplegia) Skin: other (Multiple wounds) Results Result Diagram: 01/27/17 0504 01/27/17 0504 Medications Medications Current Medications Ceftriaxone Sodium (Rocephin) 1 gm Q24H IM Last administered on 01/27/17 23: 23; Admin Dose 1 GM; Start 01/24/17 at 22:00 Acetaminophen/ Hydrocodone Bitart ([place] (5/325)) 1 tab Q4H PRN PO PAIN Last administered on 01/28/17 13:28; Admin Dose 1 TAB; Start 01/24/17 at 00:00 Enoxaparin Sodium (Lovenox) 40 mg DAILY SC ; Start 01/24/17 at 09:00 Collagenase (Santyl) 1 applic DAILY TOP Last administered on 01/28/17 09:14; Admin Dose 1 APPLIC; Start 01/24/17 at 21:00 BLADIMIR BROWER Jan 28, 2017 14:05
[2017-01-28 14:08] VITALS: BP 147/83; RESP 20
--- NOTE | 2017-01-28 14:47 | CONS ---
Date/Time of Note Date/Time of Note DATE: 01/28/17 TIME: 14:46 Consult Date/Type/Reason Admit Date/Time Jan 23, 2017 at 19:46 Initial Consult Date 01/27/17 Type of Consultation: ID Objective Vital Signs Date Time Temp Pulse Resp B/P Pulse Ox O2 Delivery O2 Flow Rate FiO2 01/28/17 14:08 98.1 66 20 147/83 98 Intake and Output 01/27/17 01/27/17 01/28/17 15:00 23:00 07:00 Intake Total 1560 ml 600 ml Output Total 0 ml Balance 1560 ml 600 ml Results/Medications Result Diagram: 01/27/17 0504 01/27/17 0504 Medications Current Medications Ceftriaxone Sodium (Rocephin) 1 gm Q24H IM Last administered on 01/27/17 23: 23; Admin Dose 1 GM; Start 01/24/17 at 22:00 Acetaminophen/ Hydrocodone Bitart ([place] (5/325)) 1 tab Q4H PRN PO PAIN Last administered on 01/28/17 13:28; Admin Dose 1 TAB; Start 01/24/17 at 00:00 Enoxaparin Sodium (Lovenox) 40 mg DAILY SC ; Start 01/24/17 at 09:00 Collagenase (Santyl) 1 applic DAILY TOP Last administered on 01/28/17 09:14; Admin Dose 1 APPLIC; Start 01/24/17 at 21:00 Assessment/Plan Chief Complaint/Hosp Course SUBJECTIVE: No acute changes per report. The patient is sleeping, looks comfortable, no fevers. ALLERGIES: Zosyn. ANTIMICROBIALS: Rocephin IM. MICROBIOLOGY: Urine culture on admission grew E. coli and Proteus mirabilis. PHYSICAL EXAMINATION: GENERAL: This is a morbidly obese, young man who is in no distress. HEENT: Head atraumatic, normocephalic. Sclerae anicteric. Buccal mucosa dry. NECK: Obese. CHEST: Rise symmetrical. Breath sounds diminished to bases. HEART: S1, S2. ABDOMEN: Soft. Bowel sounds present. EXTREMITIES: With trace edema. ASSESSMENT: 1. Recurrent urinary tract infection. 2. Morbid obesity. 3. Neurogenic bladder. 4. Paraplegia secondary to spina bifida. 5. History of hydrocephalus, status post ventriculoperitoneal shunt. PLAN: Continue present care. Continue on current antibiotics for 7 to 10 days. Monitor postvoid residuals. Podiatry rec-s noted [facility] staff Problems: PAT RODRIGUEZ NP Jan 28, 2017 14:47
[2017-01-28 19:57] VITALS: BP 140/84; RESP 19
[2017-01-29] MEDS: CEFTRIAXONE 1 GM INJ IM SCH ×2 (00:02→22:00)
[2017-01-29 02:06] VITALS: BP 128/76; RESP 19
[2017-01-29] MEDS: HYDROCODONE/APAP (5/325) TAB PO PRN ×6 (02:14→23:16)
[2017-01-29 07:57] VITALS: BP 116/62; RESP 16
[2017-01-29] MEDS: ENOXAPARIN 40 MG/0.4 ML SYG SC SCH (08:42)
[2017-01-29] MEDS: COLLAGENASE 30 GM TUBE TOP SCH (09:30)
--- NOTE | 2017-01-29 13:16 | CONS ---
Date/Time of Note Date/Time of Note DATE: 01/29/17 TIME: 13:15 Consult Date/Type/Reason Admit Date/Time Jan 23, 2017 at 19:46 Initial Consult Date 01/27/17 Type of Consultation: ID Objective Vital Signs Date Time Temp Pulse Resp B/P Pulse Ox O2 Delivery O2 Flow Rate FiO2 01/29/17 07:57 97.6 72 16 116/62 96 Intake and Output 01/28/17 01/28/17 01/29/17 15:00 23:00 07:00 Intake Total 1680 ml 650 ml Output Total 0 ml Balance 1680 ml 650 ml Results/Medications Result Diagram: 01/27/17 0504 01/27/17 0504 Medications Current Medications Ceftriaxone Sodium (Rocephin) 1 gm Q24H IM Last administered on 01/29/17 00:02 ; Admin Dose 1 GM; Start 01/24/17 at 22:00 Acetaminophen/ Hydrocodone Bitart ([place] (5/325)) 1 tab Q4H PRN PO PAIN Last administered on 01/29/17 10:42; Admin Dose 1 TAB; Start 01/24/17 at 00:00 Enoxaparin Sodium (Lovenox) 40 mg DAILY SC ; Start 01/24/17 at 09:00 Collagenase (Santyl) 1 applic DAILY TOP Last administered on 01/29/17 09:30; Admin Dose 1 APPLIC; Start 01/24/17 at 21:00 Assessment/Plan Chief Complaint/Hosp Course SUBJECTIVE: No acute changes per report. The patient is alert, feels good, looks comfortable, no fevers. ALLERGIES: Zosyn. ANTIMICROBIALS: Rocephin IM. MICROBIOLOGY: Urine culture on admission grew E. coli and Proteus mirabilis. PHYSICAL EXAMINATION: GENERAL: This is a morbidly obese, young man who is in no distress. HEENT: Head atraumatic, normocephalic. Sclerae anicteric. Buccal mucosa dry. NECK: Obese. CHEST: Rise symmetrical. Breath sounds diminished to bases. HEART: S1, S2. ABDOMEN: Soft. Bowel sounds present. EXTREMITIES: With trace edema. ASSESSMENT: 1. Recurrent urinary tract infection. 2. Morbid obesity. 3. Neurogenic bladder. 4. Paraplegia secondary to spina bifida. 5. History of hydrocephalus, status post ventriculoperitoneal shunt. PLAN: Remains stable. Continue abx for couple more days. Monitor postvoid residuals. R ankle x-ray no lytic lesion, further radiologic studies per podiatry rec-s [facility] staff Problems: PAT RODRIGUEZ NP Jan 29, 2017 13:16
[2017-01-29 14:24] VITALS: BP 132/63; RESP 16
--- NOTE | 2017-01-29 15:36 | PN ---
Date/Time of Note Date/Time of Note DATE: 01/29/17 TIME: 15:35 Assessment/Plan VTE Prophylaxis VTE Prophylaxis Intervention: SCD's Lines/Catheters Urinary Cath still in place: No Assessment/Plan Chief Complaint/Hosp Course Patient remains hemodynamically stable, afebrile. Assessment/Plan - Klebsiella P and Proteus UTI, continue Rocephin. Dr. Galvan is following in infection disease consultation. - Neurogenic bladder - Right foot wound, wound care consult evaluation. Dr. Keenan is following in post podiatry consultation. No acute fracture or lytic lesion or ankle x-ray. - History of spina bifida with quadriplegia. 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 Further recommendations based on clinical course. Plan of care discussed with Dr. Huynh Problems: Exam/Review of Systems Vital Signs Vitals Vital Signs Date Time Temp Pulse Resp B/P Pulse Ox O2 Delivery O2 Flow Rate FiO2 01/29/17 14:24 98.0 75 16 132/63 96 Intake and Output 01/28/17 01/28/17 01/29/17 15:00 23:00 07:00 Intake Total 1680 ml 650 ml Output Total 0 ml Balance 1680 ml 650 ml Exam Constitutional: alert, oriented Respiratory: normal air movement Cardiovascular: nl pulses Gastrointestinal: non-tender, soft Musculoskeletal: muscle weakness, nl extremities to inspection Extremities: other (Right foot wound) Neurological: nl mental status, other (Paraplegia) Skin: other (Multiple wounds) Results Result Diagram: 01/27/17 0504 01/27/17 0504 Medications Medications Current Medications Ceftriaxone Sodium (Rocephin) 1 gm Q24H IM Last administered on 01/29/17 00:02 ; Admin Dose 1 GM; Start 01/24/17 at 22:00 Acetaminophen/ Hydrocodone Bitart ([place] (5/325)) 1 tab Q4H PRN PO PAIN Last administered on 01/29/17 15:05; Admin Dose 1 TAB; Start 01/24/17 at 00:00 Enoxaparin Sodium (Lovenox) 40 mg DAILY SC ; Start 01/24/17 at 09:00 Collagenase (Santyl) 1 applic DAILY TOP Last administered on 01/29/17 09:30; Admin Dose 1 APPLIC; Start 01/24/17 at 21:00 BLADIMIR BROWER Jan 29, 2017 15:36
--- NOTE | 2017-01-29 15:36 | PN ---
Date/Time of Note Date/Time of Note DATE: 01/29/17 TIME: 15:35 Assessment/Plan VTE Prophylaxis VTE Prophylaxis Intervention: SCD's Lines/Catheters Urinary Cath still in place: No Assessment/Plan Chief Complaint/Hosp Course Patient remains hemodynamically stable, afebrile. Assessment/Plan - Klebsiella P and Proteus UTI, continue Rocephin. Dr. Galvan is following in infection disease consultation. - Neurogenic bladder - Right foot wound, wound care consult evaluation. Dr. Keenan is following in post podiatry consultation. No acute fracture or lytic lesion or ankle x-ray. - History of spina bifida with quadriplegia. - History of hydrocephalus status post ASSISTED LIVING COORDINATOR shunt. Further recommendations based on clinical course. Plan of care discussed with Dr. Huynh Problems: Exam/Review of Systems Vital Signs Vitals Vital Signs Date Time Temp Pulse Resp B/P Pulse Ox O2 Delivery O2 Flow Rate FiO2 01/29/17 14:24 98.0 75 16 132/63 96 Intake and Output 01/28/17 01/28/17 01/29/17 15:00 23:00 07:00 Intake Total 1680 ml 650 ml Output Total 0 ml Balance 1680 ml 650 ml Exam Constitutional: alert, oriented Respiratory: normal air movement Cardiovascular: nl pulses Gastrointestinal: non-tender, soft Musculoskeletal: muscle weakness, nl extremities to inspection Extremities: other (Right foot wound) Neurological: nl mental status, other (Paraplegia) Skin: other (Multiple wounds) Results Result Diagram: 01/27/17 0504 01/27/17 0504 Medications Medications Current Medications Ceftriaxone Sodium (Rocephin) 1 gm Q24H IM Last administered on 01/29/17 00:02 ; Admin Dose 1 GM; Start 01/24/17 at 22:00 Acetaminophen/ Hydrocodone Bitart ([place] (5/325)) 1 tab Q4H PRN PO PAIN Last administered on 01/29/17 15:05; Admin Dose 1 TAB; Start 01/24/17 at 00:00 Enoxaparin Sodium (Lovenox) 40 mg DAILY SC ; Start 01/24/17 at 09:00 Collagenase (Santyl) 1 applic DAILY TOP Last administered on 01/29/17 09:30; Admin Dose 1 APPLIC; Start 01/24/17 at 21:00 BLADIMIR BROWER Jan 29, 2017 15:36
--- NOTE | 2017-01-29 15:36 | PN ---
Date/Time of Note Date/Time of Note DATE: 01/29/17 TIME: 15:35 Assessment/Plan VTE Prophylaxis VTE Prophylaxis Intervention: SCD's Lines/Catheters Urinary Cath still in place: No Assessment/Plan Chief Complaint/Hosp Course Patient remains hemodynamically stable, afebrile. Assessment/Plan - Klebsiella P and Proteus UTI, continue Rocephin. Dr. Galvan is following in infection disease consultation. - Neurogenic bladder - Right foot wound, wound care consult evaluation. Dr. Keenan is following in post podiatry consultation. No acute fracture or lytic lesion or ankle x-ray. - History of spina bifida with quadriplegia. 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 Further recommendations based on clinical course. Plan of care discussed with Dr. Huynh Problems: Exam/Review of Systems Vital Signs Vitals Vital Signs Date Time Temp Pulse Resp B/P Pulse Ox O2 Delivery O2 Flow Rate FiO2 01/29/17 14:24 98.0 75 16 132/63 96 Intake and Output 01/28/17 01/28/17 01/29/17 15:00 23:00 07:00 Intake Total 1680 ml 650 ml Output Total 0 ml Balance 1680 ml 650 ml Exam Constitutional: alert, oriented Respiratory: normal air movement Cardiovascular: nl pulses Gastrointestinal: non-tender, soft Musculoskeletal: muscle weakness, nl extremities to inspection Extremities: other (Right foot wound) Neurological: nl mental status, other (Paraplegia) Skin: other (Multiple wounds) Results Result Diagram: 01/27/17 0504 01/27/17 0504 Medications Medications Current Medications Ceftriaxone Sodium (Rocephin) 1 gm Q24H IM Last administered on 01/29/17 00:02 ; Admin Dose 1 GM; Start 01/24/17 at 22:00 Acetaminophen/ Hydrocodone Bitart ([place] (5/325)) 1 tab Q4H PRN PO PAIN Last administered on 01/29/17 15:05; Admin Dose 1 TAB; Start 01/24/17 at 00:00 Enoxaparin Sodium (Lovenox) 40 mg DAILY SC ; Start 01/24/17 at 09:00 Collagenase (Santyl) 1 applic DAILY TOP Last administered on 01/29/17 09:30; Admin Dose 1 APPLIC; Start 01/24/17 at 21:00 BLADIMIR BROWER Jan 29, 2017 15:36
[2017-01-29 20:00] VITALS: BP 151/77; RESP 20
[2017-01-30] MEDS: CEFTRIAXONE 1 GM INJ IM SCH (00:13)
[2017-01-30 02:00] VITALS: BP 158/87; RESP 20
[2017-01-30] MEDS: HYDROCODONE/APAP (5/325) TAB PO PRN ×3 (03:11→19:45)
[2017-01-30 07:52] VITALS: BP 123/63; PULSE 75; RESP 14
[2017-01-30] MEDS: ENOXAPARIN 40 MG/0.4 ML SYG SC SCH (09:00)
[2017-01-30] MEDS: COLLAGENASE 30 GM TUBE TOP SCH (11:03)
[2017-01-30 12:42] VITALS: BP 113/69; PULSE 78; RESP 18
[2017-01-30 13:39] VITALS: BP 131/70; RESP 16
--- NOTE | 2017-01-30 13:58 | CONS ---
Date/Time of Note Date/Time of Note DATE: 01/30/17 TIME: 13:57 Consult Date/Type/Reason Admit Date/Time Jan 23, 2017 at 19:46 Initial Consult Date 01/27/17 Type of Consultation: ID Objective Vital Signs Date Time Temp Pulse Resp B/P Pulse Ox O2 Delivery O2 Flow Rate FiO2 01/30/17 12:42 98.5 78 18 113/69 95 Room Air Intake and Output 01/29/17 01/29/17 01/30/17 15:00 23:00 07:00 Intake Total 2000 ml 240 ml Balance 2000 ml 240 ml Results/Medications Result Diagram: 01/27/17 0504 01/27/17 0504 Medications Current Medications Ceftriaxone Sodium (Rocephin) 1 gm Q24H IM Last administered on 01/30/17 00:13 ; Admin Dose 1 GM; Start 01/24/17 at 22:00 Acetaminophen/ Hydrocodone Bitart ([place] (5/325)) 1 tab Q4H PRN PO PAIN Last administered on 01/30/17 03:11; Admin Dose 1 TAB; Start 01/24/17 at 00:00 Enoxaparin Sodium (Lovenox) 40 mg DAILY SC ; Start 01/24/17 at 09:00 Collagenase (Santyl) 1 applic DAILY TOP Last administered on 01/30/17 11:03; Admin Dose 1 APPLIC; Start 01/24/17 at 21:00 Assessment/Plan Chief Complaint/Hosp Course SUBJECTIVE: No acute changes per report. The patient looks comfortable, no fevers/n/v/d. ALLERGIES: Zosyn. ANTIMICROBIALS: Rocephin IM. MICROBIOLOGY: Urine culture on admission grew E. coli and Proteus mirabilis. PHYSICAL EXAMINATION: GENERAL: This is a morbidly obese, young man who is in no distress. HEENT: Head atraumatic, normocephalic. Sclerae anicteric. Buccal mucosa dry. NECK: Obese. CHEST: Rise symmetrical. Breath sounds diminished to bases. HEART: S1, S2. ABDOMEN: Soft. Bowel sounds present. EXTREMITIES: With trace edema. ASSESSMENT: 1. Recurrent urinary tract infection. 2. Morbid obesity. 3. Neurogenic bladder. 4. Paraplegia secondary to spina bifida. 5. History of hydrocephalus, status post ventriculoperitoneal shunt. PLAN: Remains stable. Continue abx for couple more days. Monitor postvoid residuals. R ankle x-ray no lytic lesion, further radiologic studies per podiatry rec-s [facility] staff Problems: APT RODRIGUEZ NP Jan 30, 2017 13:58
--- NOTE | 2017-01-30 13:58 | CONS ---
Date/Time of Note Date/Time of Note DATE: 01/30/17 TIME: 13:57 Consult Date/Type/Reason Admit Date/Time Jan 23, 2017 at 19:46 Initial Consult Date 01/27/17 Type of Consultation: ID Objective Vital Signs Date Time Temp Pulse Resp B/P Pulse Ox O2 Delivery O2 Flow Rate FiO2 01/30/17 12:42 98.5 78 18 113/69 95 Room Air Intake and Output 01/29/17 01/29/17 01/30/17 15:00 23:00 07:00 Intake Total 2000 ml 240 ml Balance 2000 ml 240 ml Results/Medications Result Diagram: 01/27/17 0504 01/27/17 0504 Medications Current Medications Ceftriaxone Sodium (Rocephin) 1 gm Q24H IM Last administered on 01/30/17 00:13 ; Admin Dose 1 GM; Start 01/24/17 at 22:00 Acetaminophen/ Hydrocodone Bitart ([place] (5/325)) 1 tab Q4H PRN PO PAIN Last administered on 01/30/17 03:11; Admin Dose 1 TAB; Start 01/24/17 at 00:00 Enoxaparin Sodium (Lovenox) 40 mg DAILY SC ; Start 01/24/17 at 09:00 Collagenase (Santyl) 1 applic DAILY TOP Last administered on 01/30/17 11:03; Admin Dose 1 APPLIC; Start 01/24/17 at 21:00 Assessment/Plan Chief Complaint/Hosp Course SUBJECTIVE: No acute changes per report. The patient looks comfortable, no fevers/n/v/d. ALLERGIES: Zosyn. ANTIMICROBIALS: Rocephin IM. MICROBIOLOGY: Urine culture on admission grew E. coli and Proteus mirabilis. PHYSICAL EXAMINATION: GENERAL: This is a morbidly obese, young man who is in no distress. HEENT: Head atraumatic, normocephalic. Sclerae anicteric. Buccal mucosa dry. NECK: Obese. CHEST: Rise symmetrical. Breath sounds diminished to bases. HEART: S1, S2. ABDOMEN: Soft. Bowel sounds present. EXTREMITIES: With trace edema. ASSESSMENT: 1. Recurrent urinary tract infection. 2. Morbid obesity. 3. Neurogenic bladder. 4. Paraplegia secondary to spina bifida. 5. History of hydrocephalus, status post ventriculoperitoneal shunt. PLAN: Remains stable. Continue abx for couple more days. Monitor postvoid residuals. R ankle x-ray no lytic lesion, further radiologic studies per podiatry rec-s [facility] staff Problems: PAT RODRIGUEZ NP Jan 30, 2017 13:58
--- NOTE | 2017-01-30 17:45 | PN ---
Date/Time of Note Date/Time of Note DATE: 01/30/17 TIME: 17:44 Assessment/Plan VTE Prophylaxis VTE Prophylaxis Intervention: other Lines/Catheters Urinary Cath still in place: No Assessment/Plan Assessment/Plan - Klebsiella P and Proteus UTI, continue Rocephin. Dr. Galvan is following in infection disease consultation. - Neurogenic bladder - Right foot wound, wound care consult evaluation. Dr. Keenan is following in post podiatry consultation. No acute fracture or lytic lesion or ankle x-ray. - History of spina bifida with quadriplegia. 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 Further recommendations based on clinical course. Plan of care discussed with Dr. Huynh Subjective 24 Hr Interval Summary Respiratory: no complaints Cardiovascular: no complaints Gastrointestinal: no complaints Genitourinary: no complaints Musculoskeletal: no complaints Exam/Review of Systems Vital Signs Vitals Vital Signs Date Time Temp Pulse Resp B/P Pulse Ox O2 Delivery O2 Flow Rate FiO2 01/30/17 13:39 98.4 61 16 131/70 97 01/30/17 12:42 Room Air Intake and Output 01/29/17 01/29/17 01/30/17 15:00 23:00 07:00 Intake Total 2000 ml 240 ml Balance 2000 ml 240 ml Exam Constitutional: alert, oriented Psych: nl mood/affect Cardiovascular: nl pulses Gastrointestinal: non-tender, soft Musculoskeletal: muscle weakness Extremities: normal pulses Neurological: nl mental status, nl speech Results Result Diagram: 01/27/17 0504 01/27/17 0504 Medications Medications Current Medications Ceftriaxone Sodium (Rocephin) 1 gm Q24H IM Last administered on 01/30/17 00:13 ; Admin Dose 1 GM; Start 01/24/17 at 22:00 Acetaminophen/ Hydrocodone Bitart ([place] (5/325)) 1 tab Q4H PRN PO PAIN Last administered on 01/30/17 15:35; Admin Dose 1 TAB; Start 01/24/17 at 00:00 Enoxaparin Sodium (Lovenox) 40 mg DAILY SC ; Start 01/24/17 at 09:00 Collagenase (Santyl) 1 applic DAILY TOP Last administered on 01/30/17 11:03; Admin Dose 1 APPLIC; Start 01/24/17 at 21:00 JOSEPHINE CRAWFORD Jan 30, 2017 17:45
--- NOTE | 2017-01-30 17:45 | PN ---
Date/Time of Note Date/Time of Note DATE: 01/30/17 TIME: 17:44 Assessment/Plan VTE Prophylaxis VTE Prophylaxis Intervention: other Lines/Catheters Urinary Cath still in place: No Assessment/Plan Assessment/Plan - Klebsiella P and Proteus UTI, continue Rocephin. Dr. Galvan is following in infection disease consultation. - Neurogenic bladder - Right foot wound, wound care consult evaluation. Dr. Keenan is following in post podiatry consultation. No acute fracture or lytic lesion or ankle x-ray. - History of spina bifida with quadriplegia. 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 Further recommendations based on clinical course. Plan of care discussed with Dr. Huynh Subjective 24 Hr Interval Summary Respiratory: no complaints Cardiovascular: no complaints Gastrointestinal: no complaints Genitourinary: no complaints Musculoskeletal: no complaints Exam/Review of Systems Vital Signs Vitals Vital Signs Date Time Temp Pulse Resp B/P Pulse Ox O2 Delivery O2 Flow Rate FiO2 01/30/17 13:39 98.4 61 16 131/70 97 01/30/17 12:42 Room Air Intake and Output 01/29/17 01/29/17 01/30/17 15:00 23:00 07:00 Intake Total 2000 ml 240 ml Balance 2000 ml 240 ml Exam Constitutional: alert, oriented Psych: nl mood/affect Cardiovascular: nl pulses Gastrointestinal: non-tender, soft Musculoskeletal: muscle weakness Extremities: normal pulses Neurological: nl mental status, nl speech Results Result Diagram: 01/27/17 0504 01/27/17 0504 Medications Medications Current Medications Ceftriaxone Sodium (Rocephin) 1 gm Q24H IM Last administered on 01/30/17 00:13 ; Admin Dose 1 GM; Start 01/24/17 at 22:00 Acetaminophen/ Hydrocodone Bitart ([place] (5/325)) 1 tab Q4H PRN PO PAIN Last administered on 01/30/17 15:35; Admin Dose 1 TAB; Start 01/24/17 at 00:00 Enoxaparin Sodium (Lovenox) 40 mg DAILY SC ; Start 01/24/17 at 09:00 Collagenase (Santyl) 1 applic DAILY TOP Last administered on 01/30/17 11:03; Admin Dose 1 APPLIC; Start 01/24/17 at 21:00 JOSEPHINE CRAWFORD Jan 30, 2017 17:45
--- NOTE | 2017-01-30 17:45 | PN ---
Date/Time of Note Date/Time of Note DATE: 01/30/17 TIME: 17:44 Assessment/Plan VTE Prophylaxis VTE Prophylaxis Intervention: other Lines/Catheters Urinary Cath still in place: No Assessment/Plan Assessment/Plan - Klebsiella P and Proteus UTI, continue Rocephin. Dr. Galvan is following in infection disease consultation. - Neurogenic bladder - Right foot wound, wound care consult evaluation. Dr. Keenan is following in post podiatry consultation. No acute fracture or lytic lesion or ankle x-ray. - History of spina bifida with quadriplegia. 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 Further recommendations based on clinical course. Plan of care discussed with Dr. Huynh Subjective 24 Hr Interval Summary Respiratory: no complaints Cardiovascular: no complaints Gastrointestinal: no complaints Genitourinary: no complaints Musculoskeletal: no complaints Exam/Review of Systems Vital Signs Vitals Vital Signs Date Time Temp Pulse Resp B/P Pulse Ox O2 Delivery O2 Flow Rate FiO2 01/30/17 13:39 98.4 61 16 131/70 97 01/30/17 12:42 Room Air Intake and Output 01/29/17 01/29/17 01/30/17 15:00 23:00 07:00 Intake Total 2000 ml 240 ml Balance 2000 ml 240 ml Exam Constitutional: alert, oriented Psych: nl mood/affect Cardiovascular: nl pulses Gastrointestinal: non-tender, soft Musculoskeletal: muscle weakness Extremities: normal pulses Neurological: nl mental status, nl speech Results Result Diagram: 01/27/17 0504 01/27/17 0504 Medications Medications Current Medications Ceftriaxone Sodium (Rocephin) 1 gm Q24H IM Last administered on 01/30/17 00:13 ; Admin Dose 1 GM; Start 01/24/17 at 22:00 Acetaminophen/ Hydrocodone Bitart ([place] (5/325)) 1 tab Q4H PRN PO PAIN Last administered on 01/30/17 15:35; Admin Dose 1 TAB; Start 01/24/17 at 00:00 Enoxaparin Sodium (Lovenox) 40 mg DAILY SC ; Start 01/24/17 at 09:00 Collagenase (Santyl) 1 applic DAILY TOP Last administered on 01/30/17 11:03; Admin Dose 1 APPLIC; Start 01/24/17 at 21:00 JOSEPHINE CRAWFORD Jan 30, 2017 17:45
[2017-01-30 20:35] VITALS: BP 136/74; RESP 18
--- NOTE | 2017-01-30 23:58 | PN ---
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 Monitor inhouse. Subjective 24 Hr Interval Summary Patient was seen at bedside. Patient is in no acute distress. Denies overnight adverse events. Denies fever, chills, nausea or vomiting. Reports bandages are being changed daily. Denies recent trauma. Constitutional: no complaints Pain Control: well controlled Exam/Review of Systems Vital Signs Vitals Vital Signs Date Time Temp Pulse Resp B/P Pulse Ox O2 Delivery O2 Flow Rate FiO2 01/31/17 14:34 98.5 76 18 137/70 97 01/31/17 11:51 Room Air Exam Free Text/Dictation Morbidly obese male laying supine in bed in no acute distress. Open wound noted on right lateral malleolus area with mild edema and erythema; there is 100 % RGT at the base with no pus and no bleeding. There is no underlying fluctuance noted on exam. There is no malodor noted on exam. No other major changes noted on exam. Labs and imaging reviewed. There is enlargement of lateral malleolus noted with no gas in the tissue. SEVERIANO MENARD DPM Jan 30, 2017 23:58 SEVERIANO MENARD DPM Jan 30, 2017 23:58
[2017-01-31 02:34] VITALS: BP 110/53; RESP 20
[2017-01-31] MEDS: HYDROCODONE/APAP (5/325) TAB PO PRN ×3 (06:17→16:45)
[2017-01-31 07:50] VITALS: BP 145/69; PULSE 90; RESP 16
[2017-01-31 07:54] VITALS: BP 145/69; RESP 18
[2017-01-31] MEDS: COLLAGENASE 30 GM TUBE TOP SCH (08:54)
[2017-01-31] MEDS: ENOXAPARIN 40 MG/0.4 ML SYG SC SCH (08:54)
[2017-01-31 11:51] VITALS: BP 138/87; PULSE 79; RESP 16
--- NOTE | 2017-01-31 13:41 | CONS ---
Date/Time of Note Date/Time of Note DATE: 01/31/17 TIME: 13:40 Consult Date/Type/Reason Admit Date/Time Jan 23, 2017 at 19:46 Initial Consult Date 01/27/17 Type of Consultation: ID Objective Vital Signs Date Time Temp Pulse Resp B/P Pulse Ox O2 Delivery O2 Flow Rate FiO2 01/31/17 11:51 98.1 79 16 138/87 97 Room Air Intake and Output 01/30/17 01/30/17 01/31/17 15:00 23:00 07:00 Intake Total 1160 ml 280 ml Balance 1160 ml 280 ml Results/Medications Result Diagram: 01/27/17 0504 01/27/17 0504 Medications Current Medications Ceftriaxone Sodium (Rocephin) 1 gm Q24H IM Last administered on 01/30/17 00:13 ; Admin Dose 1 GM; Start 01/24/17 at 22:00 Acetaminophen/ Hydrocodone Bitart ([place] (5/325)) 1 tab Q4H PRN PO PAIN Last administered on 01/31/17 12:44; Admin Dose 1 TAB; Start 01/24/17 at 00:00 Enoxaparin Sodium (Lovenox) 40 mg DAILY SC ; Start 01/24/17 at 09:00 Collagenase (Santyl) 1 applic DAILY TOP Last administered on 01/31/17 08:54; Admin Dose 1 APPLIC; Start 01/24/17 at 21:00 Assessment/Plan Chief Complaint/Hosp Course SUBJECTIVE: No acute changes per report. The patient looks comfortable, no fevers/n/v/d. ALLERGIES: Zosyn. ANTIMICROBIALS: Rocephin IM. MICROBIOLOGY: Urine culture on admission grew E. coli and Proteus mirabilis. PHYSICAL EXAMINATION: GENERAL: This is a morbidly obese, young man who is in no distress. HEENT: Head atraumatic, normocephalic. Sclerae anicteric. Buccal mucosa dry. NECK: Obese. CHEST: Rise symmetrical. Breath sounds diminished to bases. HEART: S1, S2. ABDOMEN: Soft. Bowel sounds present. EXTREMITIES: With trace edema. ASSESSMENT: 1. Recurrent urinary tract infection. 2. Morbid obesity. 3. Neurogenic bladder. 4. Paraplegia secondary to spina bifida. 5. History of hydrocephalus, status post ventriculoperitoneal shunt. PLAN: Remains stable. Will dc abx and observe. Continue monitoring postvoid residuals. Hank reynolds prn [facility] staff Problems: PAT RODRIGUEZ NP Jan 31, 2017 13:41
[2017-01-31 14:34] VITALS: BP 137/70; RESP 18
[2017-01-31] MEDS ORDERED: SAN30GM TOP (16:09)
[2017-01-31] MEDS ORDERED: HYDR-3498 PO (16:09)
--- NOTE | 2017-01-31 21:45 | DS ---
Date/Time of Note Date/Time of Note DATE: 01/31/17 TIME: 21:43 Discharge Summary Admission/Discharge Info Admit Date/Time Jan 23, 2017 at 19:46 Discharge Date/Time Jan 31, 2017 at 17:40 Patient Condition: Stable Hx of Present Illness The patient is 19-year-old male known to me from previous admission. Patient is paraplegic with history of spina bifida status post multiple surgery, and history of hydrocephalus status post BAGGAGE SMASHER shunt placement. Patient is presented with symptoms of flank pain to the emergency room on January 07 and was discharged with prescription for ciprofloxacin. Patient culture came back with E. coli and multidrug-resistant Proteus. Patient's complaints of lower back and abdominal pain. Patient denies any fever chills denies any chest pain denies shortness of breath. Patient is admitted for further evaluation and management. Hospital Course - Klebsiella P and Proteus UTI, completed treatment with Rocephin. Dr. Galvan is following in infection disease consultation. - Neurogenic bladder - Right foot wound, wound care consult evaluation. Dr. Keenan is following in post podiatry consultation. No acute fracture or lytic lesion or ankle x-ray. Continue wound care. - History of spina bifida with quadriplegia. - History of hydrocephalus status post BAGGAGE SMASHER shunt. Home Meds Active Scripts Collagenase* (Santyl*) 30 Gm Oint..gm., 1 APPLIC TOP DAILY for 14 Days Prov:BLADIMIR BROWER 01/31/17 Hydrocodone Bit-Acetaminophen (Hydrocodone Bit-APAP) 5-325MG Tablet, 1 TAB PO Q4H Y for PAIN, #30 TAB Prov:BLADIMIR BROWER 01/31/17 Follow-up Plan pt refused home health for wound care, d/c home with dressing supply, f/up with Dr Keenan in [facility] in 1 week. Primary Care Provider Denilson Eubanks MD Time spent on discharge: > 30 minutes BLADIMIR BROWER Jan 31, 2017 21:45
--- NOTE | 2017-01-31 21:45 | DS ---
Date/Time of Note Date/Time of Note DATE: 01/31/17 TIME: 21:43 Discharge Summary Admission/Discharge Info Admit Date/Time Jan 23, 2017 at 19:46 Discharge Date/Time Jan 31, 2017 at 17:40 Patient Condition: Stable Hx of Present Illness The patient is 19-year-old male known to me from previous admission. Patient is paraplegic with history of spina bifida status post multiple surgery, and history of hydrocephalus status post FISHER EEL shunt placement. Patient is presented with symptoms of flank pain to the emergency room on January 07 and was discharged with prescription for ciprofloxacin. Patient culture came back with E. coli and multidrug-resistant Proteus. Patient's complaints of lower back and abdominal pain. Patient denies any fever chills denies any chest pain denies shortness of breath. Patient is admitted for further evaluation and management. Hospital Course - Klebsiella P and Proteus UTI, completed treatment with Rocephin. Dr. Galvan is following in infection disease consultation. - Neurogenic bladder - Right foot wound, wound care consult evaluation. Dr. Keenan is following in post podiatry consultation. No acute fracture or lytic lesion or ankle x-ray. Continue wound care. - History of spina bifida with quadriplegia. - History of hydrocephalus status post FISHER EEL shunt. Home Meds Active Scripts Collagenase* (Santyl*) 30 Gm Oint..gm., 1 APPLIC TOP DAILY for 14 Days Prov:BLADIMIR BROWER 01/31/17 Hydrocodone Bit-Acetaminophen (Hydrocodone Bit-APAP) 5-325MG Tablet, 1 TAB PO Q4H Y for PAIN, #30 TAB Prov:BLADIMIR BROWER 01/31/17 Follow-up Plan pt refused home health for wound care, d/c home with dressing supply, f/up with Dr Keenan in [facility] in 1 week. Primary Care Provider Denilson Eubanks MD Time spent on discharge: > 30 minutes BLADIMIR BROWER Jan 31, 2017 21:45
--- NOTE | 2017-01-31 21:45 | DS ---
Date/Time of Note Date/Time of Note DATE: 01/31/17 TIME: 21:43 Discharge Summary Admission/Discharge Info Admit Date/Time Jan 23, 2017 at 19:46 Discharge Date/Time Jan 31, 2017 at 17:40 Patient Condition: Stable Hx of Present Illness The patient is 19-year-old male known to me from previous admission. Patient is paraplegic with history of spina bifida status post multiple surgery, and history of hydrocephalus status post GARMENT SEWER HAND shunt placement. Patient is presented with symptoms of flank pain to the emergency room on January 07 and was discharged with prescription for ciprofloxacin. Patient culture came back with E. coli and multidrug-resistant Proteus. Patient's complaints of lower back and abdominal pain. Patient denies any fever chills denies any chest pain denies shortness of breath. Patient is admitted for further evaluation and management. Hospital Course - Klebsiella P and Proteus UTI, completed treatment with Rocephin. Dr. Galvan is following in infection disease consultation. - Neurogenic bladder - Right foot wound, wound care consult evaluation. Dr. Keenan is following in post podiatry consultation. No acute fracture or lytic lesion or ankle x-ray. Continue wound care. - History of spina bifida with quadriplegia. - History of hydrocephalus status post GARMENT SEWER HAND shunt. Home Meds Active Scripts Collagenase* (Santyl*) 30 Gm Oint..gm., 1 APPLIC TOP DAILY for 14 Days Prov:BLADIMIR BROWER 01/31/17 Hydrocodone Bit-Acetaminophen (Hydrocodone Bit-APAP) 5-325MG Tablet, 1 TAB PO Q4H Y for PAIN, #30 TAB Prov:BLADIMIR BROWER 01/31/17 Follow-up Plan pt refused home health for wound care, d/c home with dressing supply, f/up with Dr Keenan in [facility] in 1 week. Primary Care Provider Denilson Eubanks MD Time spent on discharge: > 30 minutes BLADIMIR BROWER Jan 31, 2017 21:45
== END 2017-01-31 17:40 | disposition home or self-care (01) | DRG 690 ==
LOC: E/R 17:51 → MS2 19:46
PROVIDERS: ADMIT Internal Medicine; ATTEND Internal Medicine
DX: N39.0 Urinary tract infection, site not specified (principal); G82.20 Paraplegia, unspecified; L97.314 Non-pressure chronic ulcer of right ankle with necrosis of bone; Z68.41 Body mass index [BMI] 40.0-44.9, adult; B96.4 Proteus (mirabilis) (morganii) as the cause of diseases classified elsewhere; B96.20 Unspecified Escherichia coli [E. coli] as the cause of diseases classified elsewhere; N31.9 Neuromuscular dysfunction of bladder, unspecified; E66.01 Morbid (severe) obesity due to excess calories; G62.9 Polyneuropathy, unspecified; I73.9 Peripheral vascular disease, unspecified; Z16.24 Resistance to multiple antibiotics
CPT/HCPCS: 36415; 80048; 80053; 81001; 83690; 85025; 87086; 96372; 96374; J0696; J1335; J1650; J7040

== ENCOUNTER 2017-02-04 14:21 | Outpatient (CLI) | payer OTHER ==
[~2017-02-04] VITALS: Ht 157.5 cm; Wt 95.5 kg
[~2017-02-04 14:21] MED LIST changes: -CIPR500T4 PO; -CLIN-73 PO; +HYDR-3498 PO; -HYDR-902 PO; -LEVO750T25 PO; -LINE600T6 PO; -NEOM28.33 TP; -PHEN-612 PO; +SAN30GM TOP
[2017-02-04 14:32] VITALS: Ht 157.5 cm; Wt 95.5 kg
[2017-02-04 14:33] VITALS: BP 138/82; PULSE 92; RESP 20
--- NOTE | 2017-02-04 15:21 | PN ---
Date/Time of Note Date/Time of Note DATE: 02/04/17 TIME: 15:14 Outpatient Progress Note Chief Complaint UTI/spina bifid with quadriplegia/hydrocephalus/right foot wound infection HPI UTI/patient was recently admitted with failed treatment of UTI, patient was not hospitalized for 1 week, patient feels better, no fever chill, no blood in the urine, Spina bifid I with the quadriplegia/patient has spina bifid I, and a weakness up bilateral lower extremity, wheelchair-bound, patient has neurogenic bladder, and catheterizes himself every 4 hours, Hydrocephalus/patient has a history of hydrocephalus, no headache or dizziness, Right foot infection/patient had a right foot wound infection, patient was treated with antibiotic in the hospital, patient doing better, Review of Systems Const: No Fever, no chills, no Wt. loss, no Fatigue, normal appetite, no diaphoresis. Eyes: No pain, no discharge, no redness, no visual change, no foreign body. ENT: No pain, no bleeding, no congestion, no sore throat, no dysphagia, no discharge or rhinitis. Lymph: No adenopathy, no tender nodes, no lymphedema. Resp: No SOB, no cough, no sputum, no wheezing, no chest pain. CV: No chest pain, no palpitaions, no BALES, no PND, no edema. GI: Normal appetite, no pain, no nausea, no vomiting, no diarrhea, no blood, no constipation. : No frequency, no urgency, no dysuria, no hematuria, no flank pain, no discharge, no bleeding patient has neurogenic bladder, Musc: no back pain, no neck pain, no knee pain, no restricted ROM. Skin: No rash, no skin lesions, no erythema, no laceration, no bruising, no pruritus. Right foot wound infection improving, Neuro: No METZGER, no dizziness, no syncope, no seizure, lower extremity more weaker than upper,. Endo: No polyuria, no polydypsia, no dry-skin, no temp-intolerance. Psych: No hallucinations, no depression, no anxiety, no suicidal ideation. Ext: No edema, no pain, no ulcer, quadriplegia, lower extremity more weaker than upper, Physical Exam Vital Signs Date Time Temp Pulse Resp B/P Pulse Ox O2 Delivery O2 Flow Rate FiO2 11/7/17 14:33 98.0 92 20 138/82 99 Room Air General Appearance: A 27] year-old male who appears well-developed, well- nourished, in no acute distress. HEENT: Head normocephalic, atraumatic. Pupils equal, round, reactive to light and accommodate. Sclerae are no jaundice. Nasal turbinates pink without erythema or nasal discharge. Mucous membranes pink and moist without lesions. Oropharynx clear without any exudate or discharge. NECK: Supple. Trachea midline, No thyromegaly, No cervical lymphadenopathy, No mass, No carotid bruits, No JVD, Carotid pulses 2+ bilaterally. PULMONARY: Clear to auscultaion bilaterally, No retractions, Chest expansion symmetric bilaterally, no rales, no ronchi, no dulness on percussion. CARDIAC: Normal SI and S2, Regular rate and rythm, no murmur, gallop, or rub. GASTROINTESTINAL: Abdomen is soft, non-tender, Non Rigid, No distention, Positive bowel sounds x4 quadrants, Liver normal. SKIN: Warm, dry, no rash, no bruise, no echmosis. Right foot wound infection improving, no bleeding or discharge, EXTREMITIES: Bilateral lower extremities no edema, no phlabitus, pulse palpable , no contracture. Quadriplegia, lower extremity more weaker than upper, MUSCULOSKELETAL: Spine Normal, Non-tender, Normal range of motion, No swelling, no deformity, no clubbing, or cyanosis, the patient has no edema to bilateral lower extremities, dorsalis pedis pulses palpable bilaterally. NEUROLOGIC: The patient is awake, alert, oriented, responding to yes/no questions appropriately, lower extremity more weaker than upper extremities,, cranial nerve intact, normal quadriplegia, wheelchair bound, unable to test gait, Allergies Coded Allergies: latex (Verified Allergy, Intermediate, RASH, 01/23/17) ketorolac (Verified Allergy, Mild, RASH, 01/23/17) papaya (Verified Allergy, Mild, 01/23/17) piperacillin (Verified Allergy, Mild, 01/24/17) tazobactam (Verified Allergy, Mild, 01/24/17) acetaminophen (Verified Allergy, Unknown, RASH, 01/23/17) ibuprofen (Unverified Allergy, Unknown, LIP SWELLING, STATED THROAT IS CLOSING, 01/23/17) H UTI/spina bifid I/quadriplegia/hydrocephalus/neurogenic bladder/chronic pain syndrome Social Hx No change Family Hx No change Patient History: Cardiac disorder 33 FATHER Hypertension 32 MOTHER, Onset:60 years & older Assessment/Plan Impression UTI/spina bifid I with quadriplegia/hydrocephalus/right foot infection/ neurogenic bladder/chronic pain syndrome Plan Patient education done about his condition and diseases, patient remained afebrile, no urinary symptom at present, Patient advised to increase activity slowly, fall precaution, Patient very high risk for repeated admission, as patient does have neurogenic bladder and patient catheterizes himself every 4 hour, Patient encouraged to follow with the primary care physician, Medications Home Meds Active Scripts Collagenase* (Santyl*) 30 Gm Oint..gm., 1 APPLIC TOP DAILY for 14 Days Prov:BLADIMIR BROWER 01/31/17 Hydrocodone Bit-Acetaminophen (Hydrocodone Bit-APAP) 5-325MG Tablet, 1 TAB PO Q4H Y for PAIN, #30 TAB Prov:BLADIMIR BROWER 01/31/17 HELEN LUKE MD Feb 04, 2017 15:21
== END 2017-02-04 17:00 | disposition home or self-care (01) ==
LOC: DCC 14:21
PROVIDERS: ATTEND Internal Medicine
DX: Q05.9 Spina bifida, unspecified (principal); G82.50 Quadriplegia, unspecified; N31.9 Neuromuscular dysfunction of bladder, unspecified; N39.0 Urinary tract infection, site not specified; Z96.0 Presence of urogenital implants
CPT/HCPCS: G0463

== ENCOUNTER 2017-02-27 15:04 | Emergency (ER) | payer OTHER ==
[~2017-02-27] VITALS: Wt 100.0 kg
--- NOTE | 2017-02-27 16:21 | ERD ---
ER Documentation Chief Complaint Chief Complaint ABCESS ON COCCYX AREA PER PT, PT IS PARAPLEGIC HPI 27 nyr male pt with spinal bifida, paraplegic, reports not senation in LE excet to feel pain, pt states that left leg is painful . Hx of left inner thigh buttocks decub with flap repair and graft . pt reports symptoms x pain x 5 days , .pt reports fevers ans chills, denies n/v pain reports as 01/07 described as strong pressure ROS All systems reviewed and are negative except as per history of present illness. Medications Home Meds Active Scripts Clindamycin Hcl* (Clindamycin Hcl*) 300 Mg Capsule, 300 MG PO Q6 for 10 Days, # 40 CAP Prov:CAREYSHEREEKELLY 02/27/17 Collagenase* (Santyl*) 30 Gm Oint..gm., 1 APPLIC TOP DAILY for 14 Days Prov:BLADIMIR BROWER 01/31/17 Hydrocodone Bit-Acetaminophen (Hydrocodone Bit-APAP) 5-325MG Tablet, 1 TAB PO Q4H Y for PAIN, #30 TAB Prov:BLADIMIR BROWER 01/31/17 Allergies Allergies: Coded Allergies: latex (Verified Allergy, Intermediate, RASH, 02/27/17) ketorolac (Verified Allergy, Mild, RASH, 02/27/17) papaya (Verified Allergy, Mild, 02/27/17) piperacillin (Verified Allergy, Mild, 02/27/17) tazobactam (Verified Allergy, Mild, 01/24/17) acetaminophen (Verified Allergy, Unknown, RASH, 01/23/17) ibuprofen (Unverified Allergy, Unknown, LIP SWELLING, STATED THROAT IS CLOSING, 01/23/17) PMhx/Soc History of Surgery: Yes (back surgery,foot surgery,EXERCISE SCIENTIST shunt placement) Anesthesia Reaction: No Hx Neurological Disorder: Yes Hx Respiratory Disorders: No Hx Cardiac Disorders: No Hx Psychiatric Problems: No Hx Miscellaneous Medical Probl: No Hx Alcohol Use: No Hx Substance Use: Yes (marijuana) Hx Tobacco Use: No Smoking Status: Never smoker Physical Exam Vitals Vital Signs Date Time Temp Pulse Resp B/P Pulse Ox O2 Delivery O2 Flow Rate FiO2 02/27/17 15:12 98.2 108 17 133/68 97 Vitals stable, triage notes reviewed Physical Exam Const: obese, well-hydrated 27-year-old male patient, paraplegic in wheelchair with history of spinal bifida, vitals stable, patient is afebrile in obvious discomfort, no acute distress, Skin: Left posterior inner thigh/buttocks presents with skin graft tissue status post decubitus ulcer repair at age 12. Tissue is bright red, temperature normal, fluctuating with palpable induration suggestive of abscess, no subcutaneous emphysema or crepitus suggestive of necrotizing fasciitis Back: No midline or flank tenderness Ext: No cyanosis, or edema peripheral pulses +2 bilaterally equal Neur: Awake and alert Psych: Normal Mood and Affect Results 24 hrs Laboratory Tests Test 02/27/17 16:50 Urine Color YELLOW Urine Clarity CLOUDY Urine pH 6.0 Urine Specific Bow 1.015 Urine Ketones NEGATIVEmg/dL Urine Nitrite POSITIVEmg/dL Urine Bilirubin NEGATIVEmg/dL Urine Urobilinogen NEGATIVEmg/dL Urine Leukocyte Esterase 2+Karuna/ul Urine Microscopic RBC 14/HPF Urine Microscopic WBC > 182/HPF Urine Squamous Epithelial Cells FEW/HPF Urine Bacteria FEW/HPF Urine Mucus FEW/HPF Urine Hemoglobin 1+mg/dL Urine Glucose NEGATIVEmg/dL Urine Total Protein 1+mg/dl Current Medications Medications (Trade) Dose Ordered Sig/Evaristo Route PRN Reason Start Time Stop Time Status Last Admin Dose Admin Acetaminophen/ Hydrocodone Bitart ([place] (5/325)) 1 tab ONCE ONCE PO 02/27/17 17:30 02/27/17 17:31 DC 02/27/17 18:03 Clindamycin Phosphate (Cleocin) 600 mg ONCE ONCE IM 02/27/17 18:00 02/27/17 18:01 DC 02/27/17 19:08 Morphine Sulfate (morphine) 4 mg ONCE STAT IM 02/27/17 17:42 02/27/17 17:43 DC 02/27/17 18:04 Procedures/MDM PROCEDURE: Ultrasound soft tissue CLINICAL INDICATION: Left posterior thigh/buttock abscess. TECHNIQUE: An ultrasound of the left buttock was performed utilizing mcgregor scale and Doppler imaging. COMPARISON: None. FINDINGS: There is a 9.1 x 5.5 x 9.8 cm cystic lesion with an irregular wall and internal echogenic debris. Doppler imaging reveals moderate vascularity surrounding this lesion. IMPRESSION: 1. 9.1 cm cystic lesion in the left buttock, probably an abscess. Electronically viewed and signed by .Shivam Lloyd MD, on 02/27/2017 18:29 This 27-year-old male patient well known to [facility] presents to emergency department today for a painful soft swelling on his left posterior inner thigh and left gluteal fold. Patient emergency room course includes history and physical exam, exam supports suspicion for abscess, palpable fluctuation with some induration noted, patient's skin is warm to touch not hot, abscess overlies a skin graft status post flap repair of decubitus ulcer from age 12. No associated cellulitis, patient is afebrile, no sensation to lower extremities but reports pain sensation. Patient has multiple drug allergies to all nonnarcotic pain reliever, this is highly suspicious for a drug-seeking behavior. Chart review notes that patient receives [place] while in emergency department and was sent home with 30 [place] last visit February 03, 2017, this case discussed with my supervising physician Dr. Wilson who comes and reassessed patient agrees with plan of care including one [place] now for pain. Patient continues to complain of pain 4 mg of intramuscular morphine ordered. Patient's urinalysis positive for nitrates and leukocytosis, 1 g of Rocephin given intramuscularly, ultrasound documents radiologist's interpretation of 9.1 x 5.5 x 9.8 cm cystic lesion with irregular wall and internal echogenic debris Doppler imaging reveals moderate vascularity surrounding this lesion. Patient is restless, anxious, wants to sign out AMA, that he can catch his bus, this case again discussed with Dr Wilson supervising physician okay to discharge patient home with warm compresses, continue clindamycin 300 mg every 6 hours 10 days, strict return to emergency department for spontaneous drainage of abscess site, increasing pain, fever, or any change in current symptoms, patient instructed if symptoms not improving in 48-36 hours to return to emergency department regardless, plan to stay several hours for incision and drainage. Patient verbalizes understanding and agrees with plan of care. Patient is stable with no new complaints during ER course, clinically there is no current evidence to suggest meningitis, sepsis, , necrotizing fasciitis urosepsis pulmonary or any other emergent condition appearing to require further evaluation or hospitalization. I feel the patient is stable for discharge at this time. I have discussed results, examination findings, the treatment plan with the patient and family present prior to discharge. Indications for emergent reevaluation, side effects of medication were also discussed. All questions were answered. Patient verbalizes understanding and agrees with plan of care. Departure Diagnosis: Primary Impression: Abscess Additional Impression: UTI (urinary tract infection) Urinary tract infection type: catheter-associated UTI Indwelling urinary catheter type: unspecified Encounter type: initial encounter Qualified Code : T83.511A - Urinary tract infection associated with catheterization of urinary tract, unspecified indwelling urinary catheter type, initial encounter Condition: Good Patient Instructions: Abscess (, Antibiotic Treatment Only), Understanding Urinary Tract Infections (UTIs) Additional Instructions: Thank you for for coming to [facility] for your care today. Please ask your nurse or provider if you have questions about your care today and do not leave until all your questions have been answered. Please use any medications given as directed and follow-up with your doctor (or the doctor you were referred to) in the next 2-3 days. If you do not have a primary care doctor [place] [facility] [place] You may also use motrin and tylenol as needed for fever and/or pain unless instructed otherwise by your provider or nurse. Indications for more urgent follow-up have been discussed, but you may return to the Emergency Department at ANY time for any worrisome or worsening symptoms. If you have abdominal pain, please know that no test or exam you received is perfect and you should follow up within 8 hours for continued pain. If you had any imaging studies today, such as an X-Ray or CT Scan, these studies will be reviewed later by a radiologist. You will be called if there are important findings that were not identified today, so make sure the contact information you provided at registration is correct. If you received any narcotic pain control medicine today, such as Vicodin, Morphine or Dilaudid, your coordination and judgment may be affected for a number of hours. Please do not drive or operate heavy machinery, and you may want someone to assist you at home. If you were given a prescription for narcotic medication, be aware that it is very addictive- use sparingly and only if necessary. KELLY PATINO Feb 27, 2017 16:21
[2017-02-27 17:21] LABS: ADD UMIC YES; UR ASCORBIC ACID NEGATIVE (NEGATIVE); UR BACTERIA FEW /HPF (NONE SEEN); UR BILIRUBIN (Dip) NEGATIVE (NEGATIVE); UR BLOOD (Dip) 1+ mg/dL (NEGATIVE); UR CLARITY CLOUDY (CLEAR); UR COLOR YELLOW (YELLOW); UR GLUCOSE (Dip) NEGATIVE (NEGATIVE); UR KETONES (Dip) NEGATIVE (NEGATIVE); UR LEUKOCYTE ESTERASE (Dip) 2+ Leu/ul (NEGATIVE); UR MUCUS FEW /HPF (NONE SEEN); UR NITRITE (Dip) POSITIVE (NEGATIVE); UR RBC 14 /HPF (0-5); UR SPECIFIC GRAVITY (Dip) 1.015 (1.003-1.030); UR SQUAMOUS EPITHELIAL CELL FEW /HPF (FEW); UR TOTAL PROTEIN (Dip) 1+ mg/dl (NEGATIVE); UR UROBILINOGEN (Dip) NEGATIVE (NEGATIVE)
[2017-02-27] MEDS ORDERED: HYDROCODONE/APAP (5/325) TAB PO ONE (17:30)
[2017-02-27] MEDS ORDERED: morphine 4 MG/ML VIAL IM STA (17:42)
[2017-02-27] MEDS ORDERED: CLINDAMYCIN 300 MG INJ IM ONE (18:00)
--- NOTE | 2017-02-27 18:29 | RADRPT ---
PROCEDURE: Ultrasound soft tissue CLINICAL INDICATION: Left posterior thigh/buttock abscess. TECHNIQUE: An ultrasound of the left buttock was performed utilizing mcgregor scale and Doppler imagin g. COMPARISON: None. FINDINGS: There is a 9.1 x 5.5 x 9.8 cm cystic lesion with an irregular wall and internal echogenic debris. Do ppler imaging reveals moderate vascularity surrounding this lesion. IMPRESSION: 1. 9.1 cm cystic lesion in the left buttock, probably an abscess. RPTAT: HTAR .Shivam Lloyd MD, Date Time Electronically viewed and signed by .Shivam Lloyd MD, on 02/27/2017 18:29 .R/
[2017-02-27] MEDS ORDERED: CLIN-73 PO (19:29)
== END 2017-02-27 19:39 | disposition home or self-care (01) ==
LOC: FTE 15:04
DX: L02.416 Cutaneous abscess of left lower limb (principal); T83.511A Infection and inflammatory reaction due to indwelling urethral catheter, initial encounter; Y73.8 Miscellaneous gastroenterology and urology devices associated with adverse incidents, not elsewhere classified; Z91.040 Latex allergy status
CPT/HCPCS: 76536; 81001; 96372; J2270; Z7502; Z7610

== ENCOUNTER 2017-03-03 16:13 | Emergency (ER) | payer OTHER ==
[~2017-03-03] VITALS: Wt 100.0 kg
[~2017-03-03 16:13] MED LIST changes: +CLIN-73 PO
--- NOTE | 2017-03-03 18:10 | ERD ---
ER Documentation Chief Complaint Chief Complaint WOUND CHECK ON BUTTOCKS HPI This 27-year-old male patient well known to [facility] presents to emergency department today for re-evaluation of a painful soft swelling on his left posterior inner thigh and left gluteal fold. She was seen 72 hours ago by myself had ultrasound mentation of a 9.1 x 5.5 x 9.8 cm cystic lesion with irregular wall and internal echogenic debris. Pt had antibiotics provided in the emergency room and was sent home with prescription for clindamycin which she has not started. Denies fever, chills, reports pain ROS All systems reviewed and are negative except as per history of present illness. Medications Home Meds Active Scripts Hydrocodone/Acetaminophen ([place] 5-325 Tablet) 1 Each Tablet, 1 TAB PO Q6H Y for PAIN, #7 TAB Prov:CAREY,KELLY 03/03/17 Clindamycin Hcl* (Clindamycin Hcl*) 300 Mg Capsule, 300 MG PO Q6 for 10 Days, # 40 CAP Prov:CAREY,KELLY 03/03/17 Clindamycin Hcl* (Clindamycin Hcl*) 300 Mg Capsule, 300 MG PO Q6 for 10 Days, # 40 CAP Prov:CAREY,KELLY 02/27/17 Collagenase* (Santyl*) 30 Gm Oint..gm., 1 APPLIC TOP DAILY for 14 Days Prov:BLADIMIR BROWER 01/31/17 Hydrocodone Bit-Acetaminophen (Hydrocodone Bit-APAP) 5-325MG Tablet, 1 TAB PO Q4H Y for PAIN, #30 TAB Prov:BLADIMIR BROWER 01/31/17 Allergies Allergies: Coded Allergies: latex (Verified Allergy, Intermediate, RASH, 02/27/17) ketorolac (Verified Allergy, Mild, RASH, 02/27/17) papaya (Verified Allergy, Mild, 02/27/17) piperacillin (Verified Allergy, Mild, 02/27/17) tazobactam (Verified Allergy, Mild, 01/24/17) acetaminophen (Verified Allergy, Unknown, RASH, 01/23/17) ibuprofen (Unverified Allergy, Unknown, LIP SWELLING, STATED THROAT IS CLOSING, 01/23/17) PMhx/Soc History of Surgery: Yes (back surgery,foot surgery,TURNAROUND ENGINEER shunt placement) Anesthesia Reaction: No Hx Neurological Disorder: Yes Hx Respiratory Disorders: No Hx Cardiac Disorders: No Hx Psychiatric Problems: No Hx Miscellaneous Medical Probl: No Hx Alcohol Use: No Hx Substance Use: Yes (marijuana) Hx Tobacco Use: No Smoking Status: Current every day smoker Physical Exam Vitals Vitals stable, triage notes reviewed Physical Exam Const: Obese, paraplegic with spina bifida in obvious discomfort, no acute distress Resp: Respirations even and unlabored, clear to auscultation bilaterally no respiratory distress Cardio: Regular rate and rhythm, no murmurs Abd: Soft, non tender, non distended. Skin: Left posterior inner thigh/buttocks presents with skin graft tissue status post decubitus ulcer repair at age 12. Tissue is pink, smooth, temperature normal, fluctuating with palpable induration suggestive of abscess/ cyst , no subcutaneous emphysema or crepitus suggestive of necrotizing fasciitis Ext: No cyanosis, or edema Neur: Awake and alert Psych: Normal Mood and Affect Results 24 hrs Laboratory Tests Test 03/03/17 19:50 Body Fluid Type ABDOMINAL Body Fluid Volume 45.0ml Body Fluid Color ORANGE Body Fluid Appearance CLOUDY Body Fluid WBC 4265/cmm Body Fluid RBC (Auto) 83492/uL Body Fluid Polynuclear WBCs (%) 75.2% Body Fluid Mononuclear Cells % Auto 24.8% Current Medications Medications (Trade) Dose Ordered Sig/Evaristo Route PRN Reason Start Time Stop Time Status Last Admin Dose Admin Clindamycin Phosphate (Cleocin) 600 mg ONCE ONCE IM 03/03/17 18:30 03/03/17 18:31 DC 03/03/17 18:41 Acetaminophen/ Hydrocodone Bitart ([place] (5/325)) 1 tab ONCE ONCE PO 03/03/17 18:30 03/03/17 18:31 DC 03/03/17 18:31 Oxycodone/ Acetaminophen (Percocet (5/ 325)) 1 tab ONCE ONCE PO 03/03/17 20:30 03/03/17 20:30 DC 03/03/17 20:07 Procedures/MDM Abscess Incision and Drainage with irrigation by me: Location: Left posterior inner thigh/buttocks Anesthesia: Local 1% Lidocaine Technique: Simple incision and drainage with copious serosanguineous discharge, after approximately. 70 cc of fluid removed manually needle aspiration performed through incision site. Removing additional 50 cc of serosanguineous fluid. This fluid will be sent for culture and sensitivity. 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 States that his mother did not mushroom picker prescription. Emergency room course today includes 600 mg intramuscular clindamycin, incision and drainage plus needle aspiration of cyst, fluid sent to lab, patient tolerated procedure well see above. Patient was instructed to return to [facility] tomorrow to have packing changed. Verbal agreement to start oral antibiotics, Patient's skin symptoms have stabilized while they have been evaluated in the department and are appropriate for outpatient care and work up. Exam and w/u not consistent w/ sepsis, deep space infection, or foreign body.Patient is stable with no new complaints during ER course or any other emergent condition appearing to require further evaluation or hospitalization. I feel the patient is stable for discharge at this time. I have discussed results, examination findings, the treatment plan with the patient and family present prior to discharge. Indications for emergent reevaluation, side effects of medication were also discussed. All questions were answered. Patient verbalizes understanding and agrees with plan of care. Departure Diagnosis: Primary Impression: Encounter for incision and drainage procedure Condition: Good Patient Instructions: Abscess, Incision And Drainage Additional Instructions: Thank you for for coming to [facility] for your care today. Please ask your nurse or provider if you have questions about your care today and do not leave until all your questions have been answered. Please use any medications given as directed and follow-up with your doctor (or the doctor you were referred to) in the next 2-3 days. If you do not have a primary care doctor you may follow up at the [facility] (listed below). You may also use motrin and tylenol as needed for fever and/or pain unless instructed otherwise by your provider or nurse. Indications for more urgent follow-up have been discussed, but you may return to the Emergency Department at ANY time for any worrisome or worsening symptoms. If you have abdominal pain, please know that no test or exam you received is perfect and you should follow up within 8 hours for continued pain. If you had any imaging studies today, such as an X-Ray or CT Scan, these studies will be reviewed later by a radiologist. You will be called if there are important findings that were not identified today, so make sure the contact information you provided at registration is correct. If you received any narcotic pain control medicine today, such as Vicodin, Morphine or Dilaudid, your coordination and judgment may be affected for a number of hours. Please do not drive or operate heavy machinery, and you may want someone to assist you at home. If you were given a prescription for narcotic medication, be aware that it is very addictive- use sparingly and only if necessary. KELLY PATINO Mar 03, 2017 18:10 number of hours. Please do not drive or operate heavy machinery, and you may want someone to assist you at home. If you were given a prescription for narcotic medication, be aware that it is very addictive- use sparingly and only if necessary. KELLY PATINO Mar 03, 2017 18:10
[2017-03-03] MEDS ORDERED: HYDROCODONE/APAP (5/325) TAB PO ONE (18:30)
[2017-03-03] MEDS ORDERED: CLINDAMYCIN 300 MG INJ IM ONE (18:30)
[2017-03-03] MEDS ORDERED: HYDR-906 PO (20:07)
[2017-03-03] MEDS ORDERED: CLIN-73 PO (20:07)
[2017-03-03] MEDS ORDERED: OXYCODONE/ACETAMINOPHEN (5/325) TAB PO ONE (20:30)
[2017-03-03 23:05] LABS: FLD PMN% 75.2 %; FLD RBC 35000 /uL; FLD WBC 4265 /cmm
[2017-03-03 23:26] LABS: FLD TYPE ABDOMINAL
[2017-03-03 23:27] LABS: FLD CLARITY CLOUDY; FLD COLOR ORANGE
[2017-03-03 23:30] LABS: FLD MN% 24.8 %
== END 2017-03-03 20:20 | disposition home or self-care (01) ==
LOC: FTE 16:13
DX: L02.31 Cutaneous abscess of buttock (principal); F17.210 Nicotine dependence, cigarettes, uncomplicated; Z91.040 Latex allergy status
CPT/HCPCS: 10060; 87070; 89051; Z7610; 96372

== ENCOUNTER 2017-03-10 15:15 | Inpatient (IN) | payer OTHER ==
[~2017-03-10] VITALS: Ht 157.5 cm; Wt 99.2 kg
[~2017-03-10 15:15] MED LIST changes: +HYDR-906 PO
--- NOTE | 2017-03-10 17:47 | ERD ---
ER Documentation Chief Complaint Chief Complaint left leg swelling today ROS All systems reviewed and are negative except as per history of present illness. Medications Home Meds Active Scripts Hydrocodone/Acetaminophen ([place] 5-325 Tablet) 1 Each Tablet, 1 TAB PO Q6H Y for PAIN, #7 TAB Prov:CAREY,KELLY 03/03/17 Clindamycin Hcl* (Clindamycin Hcl*) 300 Mg Capsule, 300 MG PO Q6 for 10 Days, # 40 CAP Prov:CAREY,KELLY 03/03/17 Clindamycin Hcl* (Clindamycin Hcl*) 300 Mg Capsule, 300 MG PO Q6 for 10 Days, # 40 CAP Prov:CAREY,KELLY 02/27/17 Collagenase* (Santyl*) 30 Gm Oint..gm., 1 APPLIC TOP DAILY for 14 Days Prov:BLADIMIR BROWER 01/31/17 Hydrocodone Bit-Acetaminophen (Hydrocodone Bit-APAP) 5-325MG Tablet, 1 TAB PO Q4H Y for PAIN, #30 TAB Prov:BLADIMIR BROWER 01/31/17 Allergies Allergies: Coded Allergies: latex (Verified Allergy, Intermediate, RASH, 02/27/17) ketorolac (Verified Allergy, Mild, RASH, 02/27/17) papaya (Verified Allergy, Mild, 02/27/17) piperacillin (Verified Allergy, Mild, 02/27/17) tazobactam (Verified Allergy, Mild, 01/24/17) acetaminophen (Verified Allergy, Unknown, RASH, 01/23/17) ibuprofen (Unverified Allergy, Unknown, LIP SWELLING, STATED THROAT IS CLOSING, 01/23/17) PMhx/Soc History of Surgery: Yes (back surgery,foot surgery,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) Anesthesia Reaction: No Hx Neurological Disorder: Yes Hx Respiratory Disorders: No Hx Cardiac Disorders: No Hx Psychiatric Problems: No Hx Miscellaneous Medical Probl: No Hx Alcohol Use: No Hx Substance Use: Yes (marijuana) Hx Tobacco Use: No Physical Exam Vitals Vital Signs Date Time Temp Pulse Resp B/P Pulse Ox O2 Delivery O2 Flow Rate FiO2 03/10/17 18:20 101.0 118 22 135/60 99 Room Air 03/10/17 15:24 98.9 124 18 131/70 97 Results 24 hrs Current Medications Medications (Trade) Dose Ordered Sig/Evaristo Route PRN Reason Start Time Stop Time Status Last Admin Dose Admin Acetaminophen/ Hydrocodone Bitart ([place] (5/325)) 1 tab ONCE ONCE PO 03/10/17 18:00 03/10/17 18:01 DC 03/10/17 18:31 SAMY VALDIVIA PA-C Mar 10, 2017 17:47 x3. Results 24 hrs Current Medications Medications (Trade) Dose Ordered Sig/Evaristo Route PRN Reason Start Time Stop Time Status Last Admin Dose Admin Acetaminophen/ Hydrocodone Bitart ([place] (5/325)) 1 tab ONCE ONCE PO 03/10/17 18:00 03/10/17 18:01 Procedures/MDM Obese 27-year-old male with history of spina bifida presents with a chief complaint of right lower extremity swelling and pain 24 hours. Physical exam revealed a decubitus ulcer with proximal swelling, redness, and warmth with moderate tenderness to palpation. I presented the case to my attending who recommended CBC and CMP. Sal[place] was given with adequate relief of symptoms. Patient states he is allergic to Tylenol but has taken Sal[place] in the past without any adverse reactions. SAMY VALDIVIA PA-C Mar 10, 2017 17:47
[2017-03-10] MEDS ORDERED: HYDROCODONE/APAP (5/325) TAB PO ONE (18:00)
[2017-03-10 18:20] VITALS: TEMP 101
[2017-03-10] MEDS ORDERED: CLINDAMYCIN 900 MG/D5W (PMX) 50 ML IVPB STA (21:09)
[2017-03-10] MEDS ORDERED: VANCOMYCIN 1 GM (PMX) 250 ML IVPB STA (21:09)
[2017-03-10] MEDS ORDERED: HYDROmorphONE 1 MG/ML SYG IV STA (21:09)
[2017-03-10] MEDS ORDERED: ONDANSETRON 4 MG INJ IV STA (21:09)
[2017-03-10] MEDS ORDERED: SODIUM CHLORIDE 0.9% 1L BAG IV* STA (21:09)
[2017-03-10 21:10] LABS: BASOPHILS % 0.2 % (0.0-2.0); EOSINOPHILS # 0.1 10^3/ul (0.0-0.5); EOSINOPHILS % 0.6 % (0.0-7.0); HEMATOCRIT 34.4 % (42.0-52.0); HEMOGLOBIN 10.9 g/dl (14.0-18.0); LYMPHOCYTES # 1.6 10^3/ul (0.8-2.9); MEAN CORPUSCULAR HGB CONC 31.7 g/dl (32.0-37.0); MEAN CORPUSCULAR VOLUME 85.1 fl (82.0-101.0); MEAN PLATELET VOLUME 9.8 fl (7.4-10.4); MONOCYTES % 7.9 % (0.0-11.0); NEUTROPHIL # 10.3 10^3/ul (1.6-7.5); NEUTROPHILS % 78.9 % (39.0-77.0); PLATELET COUNT 393 10^3/UL (140-415); RED BLOOD COUNT 4.04 10^6/ul (4.70-6.10); RED CELL DISTRIBUTION WIDTH 14.4 % (11.5-14.5)
--- NOTE | 2017-03-10 21:18 | ERD ---
ER Documentation Chief Complaint Chief Complaint left leg swelling today HPI This is a 27-year-old male who is wheelchair-bound secondary to spina bifida and a history of hydrocephalus with a shunt who presents to the emergency department complaining of pain and swelling of his right lower extremity. Contrary to the triage note the patient is not expressing any pain of his left leg. Indicates he has a chronic ulcer for over 10 months on the right medial malleolus. However over the past 24 hours he indicates it has become significantly painful, 8 out of 10 in intensity, with purulent drainage redness and is had a tactile fever with shaking and chills. He denies a productive or nonproductive cough. He denies any recent hospitalizations. He did not take any antipyretics prior to arrival he states he has an allergy to acetaminophen and ibuprofen. He denies any shortness of breath at rest or exertion. He denies any muscular spasms or tenderness of the calf. ROS All systems reviewed and are negative except as per history of present illness. Medications Home Meds Active Scripts Hydrocodone/Acetaminophen ([place] 5-325 Tablet) 1 Each Tablet, 1 TAB PO Q6H Y for PAIN, #7 TAB Prov:CAREY,KELLY 03/03/17 Clindamycin Hcl* (Clindamycin Hcl*) 300 Mg Capsule, 300 MG PO Q6 for 10 Days, # 40 CAP Prov:CAREY,KELLY 03/03/17 Clindamycin Hcl* (Clindamycin Hcl*) 300 Mg Capsule, 300 MG PO Q6 for 10 Days, # 40 CAP Prov:CAREY,KELLY 02/27/17 Collagenase* (Santyl*) 30 Gm Oint..gm., 1 APPLIC TOP DAILY for 14 Days Prov:BLADIMIR BROWER 01/31/17 Hydrocodone Bit-Acetaminophen (Hydrocodone Bit-APAP) 5-325MG Tablet, 1 TAB PO Q4H Y for PAIN, #30 TAB Prov:BLADIIMR BROWER 01/31/17 Allergies Allergies: Coded Allergies: latex (Verified Allergy, Intermediate, RASH, 02/27/17) ketorolac (Verified Allergy, Mild, RASH, 02/27/17) papaya (Verified Allergy, Mild, 02/27/17) piperacillin (Verified Allergy, Mild, 02/27/17) tazobactam (Verified Allergy, Mild, 01/24/17) acetaminophen (Verified Allergy, Unknown, RASH, 01/23/17) ibuprofen (Unverified Allergy, Unknown, LIP SWELLING, STATED THROAT IS CLOSING, 01/23/17) PMhx/Soc History of Surgery: Yes (back surgery,foot surgery,SENIOR PENSIONS ADMINISTRATOR shunt placement) Anesthesia Reaction: No Hx Neurological Disorder: Yes Hx Respiratory Disorders: No Hx Cardiac Disorders: No Hx Psychiatric Problems: No Hx Miscellaneous Medical Probl: No Hx Alcohol Use: No Hx Substance Use: Yes (marijuana) Hx Tobacco Use: No Smoking Status: Current some day smoker Physical Exam Vitals Vital Signs Date Time Temp Pulse Resp B/P Pulse Ox O2 Delivery O2 Flow Rate FiO2 03/10/17 18:20 101.0 118 22 135/60 99 Room Air 03/10/17 15:24 98.9 124 18 131/70 97 Physical Exam Constitutional:Well-developed. Well-nourished. HEENT:Normocephalic. Atraumatic.Pupils were equal round reactive to light. Moist mucous membranes.No tonsillar exudates. Cerebral shunt is depressible with no surrounding tenderness per Neck: No nuchal rigidity. No lymphadenopathy. No posterior cervical spine tenderness or step-offs. Respiratory: Not using accessory muscles of respiration.Lungs were clear to auscultation bilaterally. No rhonchi. No rales. No wheezing. Cardiovascular: Regular rate regular rhythm.No murmurs. No rubs were appreciated.S1, S2 normal. Distal pulses are palpable 2+ bilaterally. GI: Abdomen was soft. Nontender. Non Distended. No pulsatile abdominal masses or bruits. No rebound. No guarding. Bowel sounds were present and normal. Muscle skeletal: She was strength decreased in the bilateral lower extremities secondary to spina bifida with full range of motion the bilateral upper extremities.Normal muscle tone.No assymetrical calf tenderness or swelling. Skin: No petechia, no purpura. No lesions on the palms or the soles of the feet. No maculopapular rash. 8 cm x 6 cm well-circumscribed stage II ulcer over the right medial malleolus with surrounding erythremia warmth tenderness and no fluctuance or induration and no subcutaneous emphysema NEURO: Patient was alert, awake, orientated x3.No facial droop. Gait not observed as patient is unable to ambulate due to spina bifida.Speech had regular rate and rhythm. No focal neurological deficits. Result Diagram: 03/10/17204903/10/172049 Results 24 hrs Laboratory Tests Test 03/10/17 20:50 White Blood Count 13.010^3/ul Red Blood Count 4.0410^6/ul Hemoglobin 10.9g/dl Hematocrit 34.4% Mean Corpuscular Volume 85.1fl Mean Corpuscular Hemoglobin 27.0pg Mean Corpuscular Hemoglobin Concent 31.7g/dl Red Cell Distribution Width 14.4% Platelet Count 16835^3/UL Mean Platelet Volume 9.8fl Neutrophils % 78.9% Lymphocytes % 12.0% Monocytes % 7.9% Eosinophils % 0.6% Basophils % 0.2% Nucleated Red Blood Cells % 0.0/100WBC Neutrophils # 10.310^3/ul Lymphocytes # 1.610^3/ul Monocytes # 1.010^3/ul Eosinophils # 0.110^3/ul Basophils # 0.010^3/ul Nucleated Red Blood Cells # 0.010^3/ul Prothrombin Time 15.1Sec Prothrombin Time Ratio 1.2 INR International Normalized Ratio 1.17 Activated Partial Thromboplast Time 29.6Sec Sodium Level 140mmol/L Potassium Level 3.2mmol/L Chloride Level 102mmol/L Carbon Dioxide Level 27mmol/L Anion Gap 14 Blood Urea Nitrogen 13mg/dl Creatinine 0.73mg/dl Glucose Level 107mg/dl Calcium Level 8.6mg/dl Total Bilirubin 0.6mg/dl Direct Bilirubin 0.00mg/dl Indirect Bilirubin 0.6mg/dl Aspartate Amino Transf (AST/SGOT) 20IU/L Alanine Aminotransferase (ALT/SGPT) 30IU/L Alkaline Phosphatase 157IU/L Total Protein 8.1g/dl Albumin 3.1g/dl Globulin 5.00g/dl Albumin/Globulin Ratio 0.62 Current Medications Medications (Trade) Dose Ordered Sig/Evaristo Route PRN Reason Start Time Stop Time Status Last Admin Dose Admin Acetaminophen/ Hydrocodone Bitart ([place] (5/325)) 1 tab ONCE ONCE PO 03/10/17 18:00 03/10/17 18:01 DC 03/10/17 18:31 Sodium Chloride 2790 ml 2,790 ml BOLUS OVER 2 HOURS STAT IV* 03/10/17 21:09 03/10/17 21:12 DC 03/10/17 21:20 Vancomycin HCl 250 ml @ 125 mls/hr ONCE STAT IVPB 03/10/17 21:09 03/10/17 23:08 Clindamycin HCl/ Dextrose (Cleocin 900 Mg/ D5W (Pmx)) 50 ml @ 50 mls/hr ONCE STAT IVPB 03/10/17 21:09 03/10/17 22:08 DC 03/10/17 21:43 Hydromorphone HCl (Dilaudid) 1 mg ONCE STAT IV 03/10/17 21:09 03/10/17 21:13 DC 03/10/17 21:18 Ondansetron HCl (Zofran Inj) 4 mg ONCE STAT IV 03/10/17 21:09 03/10/17 21:13 DC 03/10/17 21:19 Procedures/MDM The patient presented to the emergency department with a spreading erythematous superficial infection of the skin and subcutaneous tissues. My differential diagnosis included but was not limited to necrotizing fasciitis, lymphangitis, thrombophlebitis, deep vein thrombosis, allergic reaction, neoplasm, gout or abscess. Predisposing factors of the progressive spread of erythema, warmth, pain and tenderness was considered such as lymphedema, tinea pedis, open wounds, prior trauma or surgery, pre-existing skin lesion (furuncle), retained foreign body, injection drug use or vascular or immune compromise. The patient was placed on antibiotics to cover Staphylococcus aureus, including resistant strains such as community-acquired methicillin-resistant S. aureus. The patient had no signs of necrotizing fasciitis but given that the patient was febrile with purulent drainage of the right medial malleolus I did feel he required admission for IV antibiotics. He has a significant amount of allergies therefore was unable to be given antipyretics and cooling measures were provided. The patient was given Dilaudid and Zofran for analgesia control. He was started on vancomycin and clindamycin after blood cultures urine cultures and a wound culture had been obtained. The radiographic imaging of the right tibia and fibula showed findings that likely result of chronic osteomyelitis. She was hypokalemic given oral potassium. Patient will be admitted to his Dr. Huynh for continuation of IV antibiotics. Departure Diagnosis: Primary Impression: Cellulitis Site of cellulitis: extremity Site of cellulitis of extremity: lower extremity Laterality: right Qualified Code: L03.115 - Cellulitis of right lower extremity Additional Impression: Hypokalemia Condition: Serious SAVAGE MARVIN Mar 10, 2017 21:18
[2017-03-10 21:29] LABS: ALBUMIN 3.1 g/dl (3.3-4.9); ALBUMIN/GLOBULIN RATIO 0.62; BILIRUBIN,INDIRECT 0.6 mg/dl (0-1.1); BILIRUBIN,TOTAL 0.6 mg/dl (0.2-1.3); CALCIUM 8.6 mg/dl (8.4-10.2); CREATININE 0.73 mg/dl (0.61-1.24); POTASSIUM 3.2 mmol/L (3.5-5.1); TOTAL PROTEIN 8.1 g/dl (6.1-8.1)
[2017-03-10 21:46] LABS: INR 1.17; PROTIME 15.1 Sec (11.9-14.9); PT RATIO 1.2
[2017-03-10 21:47] LABS: PARTIAL THROMBOPLASTIN TIME 29.6 Sec (25.0-35.0)
--- NOTE | 2017-03-10 22:02 | RADRPT ---
PROCEDURE: XR Tibia and Fibula. CLINICAL INDICATION: infection TECHNIQUE: Frontal and lateral views of the right tibia and fibula were obtained. COMPARISON: No prior studies are available for comparison. FINDINGS: Noted is focal lysis of the proximal shaft of the fibula with extensive overlying smooth periostitis . There is overlying soft tissue swelling. Old post traumatic or post infectious deformity is seen i n the distal tibia. No fracture is seen. The knee and ankle joints are intact with anatomic alignmen t. IMPRESSION: Focal lysis with expansile smooth periostitis proximal right tibia. 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 Diffuse soft tissue swelling. Old post traumatic deformity or post infectious deformity distal tibia. .Dru Kendrick MD, MD Date Time Electronically viewed and signed by .Dru Kendrick MD, on 03/10/2017 22:01 .A/
[2017-03-10] MEDS ORDERED: POTASSIUM CHLORIDE (SR) 20 MEQ TAB PO STA (22:13)
[2017-03-10] MEDS ORDERED: ONDANSETRON 4 MG INJ IV PRN (22:30)
[2017-03-10] MEDS ORDERED: VANCOMYCIN IV PER PHARMACY XX SCH (23:00)
[2017-03-10] MEDS ORDERED: morphine 4 MG/ML VIAL IV PRN (23:00)
[2017-03-11 00:50] VITALS: Ht 157.5 cm; Wt 99.2 kg
[2017-03-11 01:39] VITALS: BP 122/60; RESP 18
[2017-03-11] MEDS ORDERED: HYDROmorphONE 0.5 MG/0.5 ML SYG IM PRN (04:00)
[2017-03-11] MEDS ORDERED: PENDING SANTYL ORDER FOR WOUND CARE XX PRN (06:30)
[2017-03-11 08:00] VITALS: BP 138/63; RESP 18
[2017-03-11] MEDS: HYDROmorphONE 0.5 MG/0.5 ML SYG IV PRN ×4 (08:00→19:05)
[2017-03-11] MEDS ORDERED: VANCOMYCIN 1 GM in NS 250 ML IVPB SCH (08:00)
[2017-03-11] MEDS: CEFEPIME 1GM/50 ML IVPB SCH ×2 (08:39→20:24)
[2017-03-11] MEDS: ENOXAPARIN 40 MG/0.4 ML SYG SC SCH (08:45)
[2017-03-11] MEDS ORDERED: CEFEPIME HCL 1 GM VIAL IV SCH (09:00)
--- NOTE | 2017-03-11 11:12 | HP ---
Date/Time of Note Date/Time of Note DATE: 03/11/17 TIME: 11:08 Assessment/Plan VTE Prophylaxis VTE Prophylaxis Intervention: SCD's Lines/Catheters IV [facility] Midline Urinary Cath still in place: No Assessment/Plan Assessment/Plan -Right lower extremity cellulitis with right malleolus wound, wound care consult evaluation. Dr. Keenan is asked to see patient in post podiatry consultation. Dr. Galvan is asked to see patient in infection disease consultation. - Systemic inflammatory response syndrome secondary to right foot soft tissue infection. - History of spina bifida with quadriplegia. - History of hydrocephalus status post MAGNETIC HEALER shunt. Further recommendations based on clinical course. Plan of care discussed with Dr. Huynh HPI/ROS Admit Date/Time Admit Date/Time Mar 10, 2017 at 22:16 Hx of Present Illness Patient denies any productive cough denies any chest pain denies shortness of breath the patient is 27-year-old male known to me from previous admission patient has a history of spina bifida with quadriplegia using wheelchair. Patient also had a history of hydrocephalus status post MAGNETIC HEALER shunt surgery many years ago. Patient has a chronic right malleolus wound and supposed to follow- up in amputation prevention center. Patient noted increase of swelling and purulent drainage from right foot wound over the last couple of days. Patient also stated that he developed pain. Patient also stated that he experienced fever and chills. Denies nausea vomiting diarrhea. presentation in the emergency room patient was noted to have leukocytosis and fever 101.0. Patient is started on broad-spectrum antibiotics and admitted for further evaluation and management. ROS 12 point review of systems negative unless what mentioned in HPI PMH/Family/Social Past Medical History Per HPI Past Surgical History Past Surgical Hx: other Family History Significant Family History: no pertinent family hx Social History Alcohol Use: none Smoking Status: Current every day smoker Drug Use: none Exam/Review of Systems Vital Signs Vitals Vital Signs Date Time Temp Pulse Resp B/P Pulse Ox O2 Delivery O2 Flow Rate FiO2 03/11/17 08:00 98.8 90 18 138/63 96 03/11/17 00:11 Room Air Intake and Output 03/10/17 03/10/17 03/11/17 15:00 23:00 07:00 Intake Total 240 ml Balance 240 ml Exam Constitutional: alert, oriented Head: normocephalic Neck: supple Respiratory: normal air movement Cardiovascular: nl pulses Gastrointestinal: non-tender, soft Musculoskeletal: muscle weakness Extremities: other (Right lower extremities redness and swelling) Neurological: nl mental status, other (Paraplegia) Skin: other ( right medial malleolus ulcer) Labs Result Diagram: 03/10/17204903/10/172049 Medications Medications Current Medications Enoxaparin Sodium (Lovenox) 40 mg QAM SC ; Start 03/11/17 at 09:00 Acetaminophen/ Hydrocodone Bitart ([place] (5/325)) 1 tab Q4H PRN NGT PAIN LEVEL 1-3; Start 03/10/17 at 23:00 Hydromorphone HCl (Dilaudid) 0.5 mg Q4H PRN IV PAIN Last administered on 08:00; Admin Dose 0.5 MG; Start 03/11/17 at 02:30 Hydromorphone HCl (Dilaudid) 0.5 mg Q4 PRN IM PAIN Last administered on 03:57; Admin Dose 0.5 MG; Start 03/11/17 at 04:00 Miscellaneous Information This patient lorenzana... PRN PRN XX WOUND CARE; Start 03/16 at 06:30 Cefepime HCl 50 ml @ 100 mls/hr Q12 IVPB Last administered on 03/11/17 08:39 ; Admin Dose 100 MLS/HR; Start 03/11/17 at 09:00 Vancomycin HCl (Vancocin) 250 ml @ 125 mls/hr Q12H IVPB ; Start 03/11/17 at 20 :00 Miscellaneous Information (*Rx Drug Level Order Reminder*) VANCO TROUGH @ 0, 700 ON ... ONCE ONCE XX ; Start 03/12/17 at 07:00; Stop 03/12/17 at 07:01 BLADIMIR BROWER Mar 11, 2017 11:12
[2017-03-11 13:38] LABS: BARBITURATES Negative (NEGATIVE); BENZODIAZEPINES Negative (NEGATIVE); CANNABINOIDS Positive (NEGATIVE); COCAINE Negative (NEGATIVE); OPIATES Positive (NEGATIVE)
[2017-03-11 14:00] VITALS: BP 134/74; RESP 20
--- NOTE | 2017-03-11 15:35 | CONS ---
DATE OF ADMISSION: 03/10/2017 DATE OF CONSULTATION: 03/11/2017 TYPE OF CONSULTATION: Infectious Disease. REASON FOR CONSULTATION: Antibiotic management. HISTORY OF PRESENT ILLNESS: Kunal Dick is a 27-year-old male well known to us from multiple admissi ons, who is paraplegic. The patient comes in now with shortness of breath and is being seen for ant ibiotic management. His past problems include: 1. History of spina bifida with paraplegia. 2. History of hydrocephalus status post OPEN HEARTH LABORER shunt many years ago. 3. Chronic right malleolar wound for which he was supposed to follow up in the [facility]. He has increasing swelling and purulent drainage from the right foot wound over the last few days an d developed increasing pain. He experienced fever and chills. Denies nausea, vomiting. He present ed to the emergency room with leukocytosis and a temperature of 101 degrees. PAST MEDICAL HISTORY: Operations as outlined. FAMILY HISTORY: Noncontributory. SOCIAL HISTORY: He is a current every day smoker, does not drink or abuse drugs. ALLERGIES: NONE TO PENICILLIN, SULFA OR FOODS. MEDICATIONS: Per chart. REVIEW OF SYSTEMS: As per HPI. Of note, is the fact that he has also had back surgery, foot surger y in addition to the OPEN HEARTH LABORER shunt. PHYSICAL EXAMINATION: GENERAL: The patient is a well-nourished male. VITAL SIGNS: His temperature is 101. SKIN: Without generalized rash. He has an 8 x 6 cm well circumscribed stage II ulcer over the righ t medial malleolus with surrounding erythema, warmth, tenderness and no fluctuance or induration. N o subcutaneous emphysema. HEENT: Within normal limits. Cerebral shunt is depressible with no surrounding tenderness. NECK: Supple. LYMPH NODES: None palpable. CHEST: Decreased breath sounds at the bases. HEART: Without murmur, rub or gallop. ABDOMEN: Soft, nontender, without organosplenomegaly or masses. EXTREMITIES: Without cyanosis, clubbing, or edema. As noted, he has a stage II ulcer over the righ t medial malleolus. RECTAL AND GENITAL: Deferred. NEUROLOGIC: The patient is paraplegic. ANCILLARY LABORATORY DATA: White count 13,000, H and H of 10.9 and 34.4, platelet count 393,000. B UN and creatinine 13/0.73. IMPRESSION Patient was begun on antibiotic therapy on vancomycin and also received cefepime as well . He is currently, I believe, on vancomycin alone, now he is on cefepime as well as vancomycin. We will continue him on this regimen. Blood cultures, urine cultures and wound cultures are pending. I will dictate my findings to Dr. Huynh. Dictated By: DIAN ROUSSEAU MD, JD/BRADY Conf#: [id number] DID#: [id number] CC: CAROL HUYNH MD;*End*
[2017-03-11] MEDS ORDERED: HYDROmorphONE 0.5 MG/0.5 ML SYG IV STA (19:24)
[2017-03-11] MEDS ORDERED: HYDROmorphONE 1 MG/ML SYG IM PRN (19:30)
[2017-03-11 20:52] VITALS: BP 122/65; RESP 18
[2017-03-11] MEDS: VANCOMYCIN 1 GM in NS 250 ML IVPB SCH (21:17)
[2017-03-11] MEDS: HYDROmorphONE 1 MG/ML SYG IV PRN (23:04)
[2017-03-11] MEDS ORDERED: COLLAGENASE 30 GM TUBE TOP PRN (23:30)
--- NOTE | 2017-03-11 23:48 | CONS ---
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 Thank you again for involving me in the care of this patient. If you have any questions regarding this case, please feel free to contact me at pager: or reach me at mobile: [phone]. Consultation Date/Type/Reason Admit Date/Time Mar 10, 2017 at 22:16 Date of Consultation: Mar 11, 2017 Type of Consultation: Foot and ankle surgery Reason for Consultation Evaluation and treatment of right ankle open wound and infection Hx of Present Illness Thank you very much for your kind consultation as you know this is a 27-year- old male patient who is known to me from previous admissions to the hospital with history of spina bifida, quadriplegia, and chronic open wound of his right ankle. Patient has been seen in the hospital for this problem multiple times and has been discharged with the instruction for follow-up at the amputation prevention center which he has not shown up to any of his postop appointments. Patient states that he noted increase in swelling, redness and pus draining from his right ankle wound over the past few days. Patient was admitted to the hospital and I was consulted for evaluation and treatment. Patient denies any pain in the area and reports no fever today. Denies chest pain and shortness of breath. Negative for fevers, chills, nausea, vomiting, diarrhea, constipation, headache , visual disturbance, neck pain, chest pain, shortness of breath. All other systems are negative, except as noted in the HPI. Constitutional: no complaints Eyes: no complaints ENT: no complaints Respiratory: no complaints Past Medical History As per history of present illness. Past Surgical History As per history of present illness. Past Surgical Hx: other Social History As per history of present illness. Alcohol Use: none Smoking Status: Current every day smoker Drug Use: none Exam/Review of Systems Vital Signs Vitals Vital Signs Date Time Temp Pulse Resp B/P Pulse Ox O2 Delivery O2 Flow Rate FiO2 03/11/17 20:52 98.7 88 18 122/65 96 03/11/17 00:11 Room Air Intake and Output 03/10/17 03/10/17 03/11/17 14:59 22:59 06:59 Intake Total 240 ml Balance 240 ml Exam Patient is laying supine in bed. There is 0 out of 5 muscle power and lower extremities. Open wound present on the lateral malleolus area with surrounding erythema. There is serosanguineous drainage and malodor present. No bleeding noted. There is nontender to palpation. Edema of the lower extremities present. Pedal pulses are not palpable secondary to the edema present. Protective sensation is absent bilateral lower extremity. Labs reviewed. X- rays reviewed. No MRI for review at this time. Results Result Diagram: 03/10/17204903/10/172049 Results 24 hrs Laboratory Tests Test 03/11/17 04:25 Urine Opiates Screen Positive Urine Barbiturates Negative Urine Amphetamines Screen Negative Urine Benzodiazepines Screen Negative Urine Cocaine Screen Negative Urine Cannabinoids Positive Medications Medications Current Medications Enoxaparin Sodium (Lovenox) 40 mg QAM SC ; Start 03/11/17 at 09:00 Acetaminophen/ Hydrocodone Bitart 1 tab 1 tab Q4H PRN NGT PAIN LEVEL 1-3; Start 03/10/17 at 23:00 Cefepime HCl 50 ml @ 100 mls/hr Q12 IVPB Last administered on 03/11/17 20:24 ; Admin Dose 100 MLS/HR; Start 03/11/17 at 09:00 Vancomycin HCl (Vancocin) 250 ml @ 125 mls/hr Q12H IVPB Last administered on 03/11/17 21:17; Admin Dose 125 MLS/HR; Start 03/11/17 at 20:00 Miscellaneous Information (*Rx Drug Level Order Reminder*) VANCO TROUGH @ 0, 700 ON ... ONCE ONCE XX ; Start 03/12/17 at 07:00; Stop 03/12/17 at 07:01 Hydromorphone HCl (Dilaudid) 1 mg Q4H PRN IM PAIN; Start 03/11/17 at 19:30 Hydromorphone HCl (Dilaudid) 1 mg Q4H PRN IV PAIN Last administered on 23:04; Admin Dose 1 MG; Start 03/11/17 at 22:30 Collagenase (Santyl) 1 applic DAILY TOP ; Start 03/12/17 at 09:00 Collagenase (Santyl) 1 applic PRN PRN TOP SOILING Last administered on t 23:15; Admin Dose 1 APPLIC; Start 03/11/17 at 23:30 SEVERIANO MENARD DPM Mar 11, 2017 23:47
[2017-03-12 02:31] VITALS: BP 133/65; RESP 18
[2017-03-12] MEDS: HYDROmorphONE 1 MG/ML SYG IV PRN ×2 (03:06→07:04)
[2017-03-12 08:03] VITALS: BP 144/65; RESP 18
[2017-03-12] MEDS: VANCOMYCIN 1 GM in NS 250 ML IVPB SCH (08:15)
[2017-03-12] MEDS: ENOXAPARIN 40 MG/0.4 ML SYG SC SCH (09:00)
[2017-03-12] MEDS: COLLAGENASE 30 GM TUBE TOP SCH (09:57)
[2017-03-12] MEDS: CEFEPIME 1GM/50 ML IVPB SCH ×2 (09:57→21:11)
[2017-03-12] MEDS ORDERED: HYDROmorphONE 4 MG TAB PO PRN (11:00)
[2017-03-12] MEDS: HYDROmorphONE 2 MG TAB PO PRN ×3 (11:58→21:14)
[2017-03-12 14:00] VITALS: BP 158/89; RESP 18
[2017-03-12] MEDS: SODIUM HYPOCHLORITE 0.125% 473 ML BTL IRR SCH (16:00)
--- NOTE | 2017-03-12 16:11 | RADRPT ---
PROCEDURE: MRI OF THE RIGHT FOOT CLINICAL INDICATION: Right foot pain and swelling, cellulitis, concern for osteomyelitis or abscess, history of foot surgery years ago TECHNIQUE: Multiple MRI images were obtained utilizing multiple sequences in multiple planes. Image s were interpreted on a high-resolution PACS system. COMPARISON: Radiographs of the right tibia / fibula dated March 10, 2017 and radiographs of the right ankle dated January 27, 2017 and MRI of the right foot dated September 07, 2015 FINDINGS: There is a large medial skin defect overlying the medial malleolus with extensive surrounding cellul itic and ill-defined phlegmonous change (axial 9 and sagittal 9) as well as some foci of soft tissue gas. There is underlying osteomyelitis involving the medial malleolus (coronal 17) on a background of a remote post-traumatic deformity. There is also a moderate-sized tibiotalar joint effusion, with infection not excluded. There is milder nonspecific bone marrow edema along the medial margin of th e talus (coronal 18 and axial 15, nonspecific and possibly reactive though early osteomyelitis is no t excluded. There is also bone marrow edema within the medial navicular (coronal 25) in the anterior calcaneus (sagittal 21). There is diffuse subcutaneous soft tissue swelling. There is diffuse intrinsic foot muscle atrophy. There is a moderate tibialis posterior tenosynovitis (axial 20), with infectious tenosynovitis not e xcluded. IMPRESSION: 1. Large medial skin ulceration with surrounding cellulitis/ill-defined phlegmonous change and soft tissue gas nearly extending to bone with extensive underlying osteomyelitis of a chronically deforme d medial malleolus. No discrete drainable subcutaneous fluid collection is identified. 2. Moderate-sized tibiotalar joint effusion, cannot exclude septic arthritis. 3. Regions of nonspecific bone marrow edema at the medial talar dome, the medial navicular, and the anterior calcaneus, possibly reactive change though early osteomyelitis at these locations is not ex cluded. 4. Moderate tibialis posterior tenosynovitis, possibly infectious tenosynovitis. 5. Severe diffuse muscle atrophy. RPTAT: UU .Judah Munoz MD, MD Date Time Electronically viewed and signed by .Judah Munoz MD, on 03/12/2017 16:11 .K/
--- NOTE | 2017-03-12 17:06 | PN ---
Date/Time of Note Date/Time of Note DATE: 03/12/17 TIME: 17:03 Assessment/Plan VTE Prophylaxis VTE Prophylaxis Intervention: SCD's Lines/Catheters IV Catheter Type (from Nrs): Mid Line Urinary Cath still in place: No Assessment/Plan Chief Complaint/Hosp Course Patient refused morning labs, remains hemodynamically stable, afebrile. Assessment/Plan -Right lower extremity cellulitis with right malleolus wound, wound care consult evaluation. Dr. Keenan is following podiatry consultation. Dr. Galvan is following in infection disease consultation. follow-up on the MRI of the right foot - Systemic inflammatory response syndrome secondary to right foot soft tissue infection. - History of spina bifida with quadriplegia. - History of hydrocephalus status post ENERGY EFFICIENCY SPECIALIST shunt. Further recommendations based on clinical course. Plan of care discussed with Dr. Huynh Problems: Exam/Review of Systems Vital Signs Vitals Vital Signs Date Time Temp Pulse Resp B/P Pulse Ox O2 Delivery O2 Flow Rate FiO2 03/12/17 14:00 97.6 84 18 158/89 97 03/11/17 00:11 Room Air Intake and Output 03/11/17 03/11/17 03/12/17 15:00 23:00 07:00 Intake Total 300 ml 1150 ml 1500 ml Output Total 200 ml Balance 300 ml 950 ml 1500 ml Exam Constitutional: alert, oriented Respiratory: normal air movement Cardiovascular: nl pulses Gastrointestinal: non-tender, soft Musculoskeletal: muscle weakness Extremities: other (Right lower extremities redness and swelling) Results Result Diagram: 03/10/17204903/10/172049 Medications Medications Current Medications Enoxaparin Sodium (Lovenox) 40 mg QAM SC ; Start 03/11/17 at 09:00 Acetaminophen/ Hydrocodone Bitart 1 tab 1 tab Q4H PRN NGT PAIN LEVEL 1-3; Start 03/10/17 at 23:00 Cefepime HCl (Maxipime 1gm/50 ml (Pmx)) 50 ml @ 100 mls/hr Q12 IVPB Last administered on 03/12/17 09:57; Admin Dose 100 MLS/HR; Start 03/11/17 at 09: 00 Collagenase (Santyl) 1 applic DAILY TOP Last administered on 03/12/17 09:57; Admin Dose 1 APPLIC; Start 03/12/17 at 09:00 Collagenase (Santyl) 1 applic PRN PRN TOP SOILING Last administered on 23:15; Admin Dose 1 APPLIC; Start 03/11/17 at 23:30 Hydromorphone HCl (Dilaudid) 4 mg Q4H PRN PO PAIN Last administered on 16:00; Admin Dose 4 MG; Start 03/12/17 at 11:00 Sodium Hypochlorite (Dakin'S (1/4 Strength)) 1 applic DAILY IRR Last administered on 03/12/17 16:00; Admin Dose 1 APPLIC; Start 03/12/17 at 15:00 BLADIMIR BROWER Mar 12, 2017 17:06
[2017-03-12] MEDS: HYDROCODONE/APAP (5/325) TAB NGT PRN ×2 (17:54→22:22)
[2017-03-12 20:00] VITALS: BP 125/70; RESP 18
[2017-03-13] MEDS: HYDROmorphONE 2 MG TAB PO PRN ×4 (01:15→21:23)
[2017-03-13 03:18] VITALS: BP 154/83; RESP 20
--- NOTE | 2017-03-13 06:29 | PN ---
DATE: 03/12/2017 SUBJECTIVE: No acute changes. The patient is sleeping, does not want to participate in care. Per nursing staff, refuse ____draw. No fevers. No lab this morning. Microbiology right ankle wound cu lture grew E. coli, beta and alpha hemolytic strep species. Urine culture growing the gram-negative rods. Antimicrobial, patient is on ID vancomycin and cefepime. PHYSICAL EXAMINATION: GENERAL: Morbidly obese middle-aged male who is no distress. HEENT: Head is atraumatic, normocephalic. Sclerae anicteric. Buccal mucosa dry. NECK: Obese. CHEST: Rise symmetrical. Breath sounds diminished to bases. HEART: S1, S2. ABDOMEN: Soft. Bowel sounds present. EXTREMITIES: Dry foot. Dressing is intact. ASSESSMENT: 1. Right foot, acute on chronic decubitus with extensive underlying osteomyelitis of chronically de formed medial malleolus as per MRI. 2. Recurrent urinary tract infection. 3. History of spinal bifida. 4. Morbid obesity. 5. Severe debilitated state. 6. History of hydrocephalus status post ventriculoperitoneal shunt PLAN: The patient remains stable. We are going to discontinue vancomycin and keep him on cefepime as it covers E. coli and strep species. Await for urine cultures, follow up with Podiatry recommend ations. Consider PICC line as patient will require long-term IV antibiotics. Consider placement. Dictated By: PAT RODRIGUEZ ROLLED HAM LACER for DIAN ROUSSEAU MD NI/NTS Conf#: [id number] DID#: [id number]
[2017-03-13 07:40] VITALS: BP 119/74; RESP 16
[2017-03-13] MEDS: ENOXAPARIN 40 MG/0.4 ML SYG SC SCH (09:00)
[2017-03-13] MEDS: COLLAGENASE 30 GM TUBE TOP SCH (09:00)
[2017-03-13] MEDS: CEFEPIME 1GM/50 ML IVPB SCH ×2 (10:00→21:23)
[2017-03-13 14:15] VITALS: BP 138/68; RESP 16
[2017-03-13] MEDS: SODIUM HYPOCHLORITE 0.125% 473 ML BTL IRR SCH (17:01)
--- NOTE | 2017-03-13 18:39 | PN ---
Date/Time of Note Date/Time of Note DATE: 03/13/17 TIME: 18:35 Assessment/Plan VTE Prophylaxis VTE Prophylaxis Intervention: SCD's Lines/Catheters [facility] Mid Line Urinary Cath still in place: No Assessment/Plan Chief Complaint/Hosp Course Patient continues to refuse routine labs, I had a long conversation with patient regarding the necessity to monitor renal function while patient is on antibiotics. Assessment/Plan -Right lower extremity cellulitis with right malleolus wound, wound care consult evaluation. Dr. Keenan is following podiatry consultation. Dr. Galvan is following in infection disease consultation. Right foot MRI revealed osteomyelitis. -E. coli UTI -Systemic inflammatory response syndrome secondary to right foot soft tissue infection. -History of spina bifida with quadriplegia. -History of hydrocephalus status post RECREATION INSTRUCTOR shunt. -Medical noncompliance Further recommendations based on clinical course. Plan of care discussed with Dr. Huynh Problems: Exam/Review of Systems Vital Signs Vitals Vital Signs Date Time Temp Pulse Resp B/P Pulse Ox O2 Delivery O2 Flow Rate FiO2 03/13/17 14:15 98.3 75 16 138/68 96 03/11/17 00:11 Room Air Intake and Output 03/12/17 03/12/17 03/13/17 15:00 23:00 07:00 Intake Total 300 ml 550 ml 750 ml Balance 300 ml 550 ml 750 ml Exam Constitutional: alert, oriented Respiratory: normal air movement Cardiovascular: nl pulses Gastrointestinal: non-tender, soft Musculoskeletal: muscle weakness Extremities: other (Right lower extremities redness and swelling) Results Result Diagram: 03/10/17204903/10/172049 Medications Medications Current Medications Enoxaparin Sodium (Lovenox) 40 mg QAM SC ; Start 03/11/17 at 09:00 Acetaminophen/ Hydrocodone Bitart 1 tab 1 tab Q4H PRN NGT PAIN LEVEL 1-3 Last administered on 03/12/17 22:22; Admin Dose 1 TAB; Start 03/10/17 at 23:00 Cefepime HCl (Maxipime 1gm/50 ml (Pmx)) 50 ml @ 100 mls/hr Q12 IVPB Last administered on 03/13/17 10:00; Admin Dose 100 MLS/HR; Start 03/11/17 at 09: 00 Collagenase (Santyl) 1 applic DAILY TOP Last administered on 03/13/17 09:00; Admin Dose 1 APPLIC; Start 03/12/17 at 09:00 Collagenase (Santyl) 1 applic PRN PRN TOP SOILING Last administered on 23:15; Admin Dose 1 APPLIC; Start 03/11/17 at 23:30 Hydromorphone HCl (Dilaudid) 4 mg Q4H PRN PO PAIN Last administered on 16:59; Admin Dose 4 MG; Start 03/12/17 at 11:00 Sodium Hypochlorite (Dakin'S (1/4 Strength)) 1 applic DAILY IRR Last administered on 03/13/17 17:01; Admin Dose 1 APPLIC; Start 03/12/17 at 15:00 BLADIMIR BROWER Mar 13, 2017 18:39
[2017-03-13 19:44] VITALS: BP 130/60; RESP 18
[2017-03-13 20:00] VITALS: BP 130/60; PULSE 63; RESP 18
--- NOTE | 2017-03-13 22:39 | PN ---
DATE: 03/13/2017 INFECTIOUS DISEASE PROGRESS NOTE SUBJECTIVE: No acute changes. Patient is in no distress, no fevers. MICROBIOLOGY: Wound culture growing E. coli, strep, beta and alpha hemolytic Staphylococcus aureus, gram-negative rods. Urine culture growing E. coli. ANTIMICROBIALS: The patient is on cefepime. ALLERGIES: ZOSYN. PHYSICAL EXAMINATION: GENERAL: This is an obese, well-developed, chronically ill-appearing, middle-aged man who is in no distress. HEENT: Head atraumatic, normocephalic. Sclerae anicteric. Buccal mucosa dry. NECK: Supple. CHEST: Rise symmetrical. Breath sounds clear. HEART: S1, S2. ABDOMEN: Soft. Bowel tones present. ASSESSMENT: 1. Recurrent urinary tract infection. 2. Right lower extremity chronic wound with acute osteomyelitis. 3. Morbid obesity. 4. History of spina bifida and incomplete paraplegia. PLAN: The patient remains stable. Continue present care. Continue on current antibiotics. Consid er PICC line placement as patient will require 6+ weeks IV antibiotics for osteomyelitis. Dictated By: PAT RODRIGUEZ HEALTH UNIT CLERK for DIAN ROUSSEAU MD NI/NTS Conf#: [id number] DID#: [id number] CC: CAROL KOENIG MD;*EndCC*
[2017-03-14 02:04] VITALS: BP 147/78; RESP 18
[2017-03-14 07:35] VITALS: BP 124/69; RESP 16
[2017-03-14] MEDS: ENOXAPARIN 40 MG/0.4 ML SYG SC SCH (08:34)
[2017-03-14] MEDS: CEFEPIME 1GM/50 ML IVPB SCH ×2 (09:02→20:26)
[2017-03-14] MEDS: SODIUM HYPOCHLORITE 0.125% 473 ML BTL IRR SCH (09:04)
[2017-03-14] MEDS: COLLAGENASE 30 GM TUBE TOP SCH (09:05)
[2017-03-14] MEDS: HYDROmorphONE 2 MG TAB PO PRN ×3 (09:09→21:04)
[2017-03-14 14:10] VITALS: BP 133/66; RESP 16
--- NOTE | 2017-03-14 14:54 | CONS ---
Date/Time of Note Date/Time of Note DATE: 03/14/17 TIME: 14:53 Assessment/Plan Assessment/Plan Chief Complaint/Hosp Course SUBJECTIVE: No acute changes. Patient is in no distress, no fevers. MICROBIOLOGY: Wound culture growing E. coli, strep, beta and alpha hemolytic Staphylococcus aureus, gram-negative rods. Urine culture growing E. coli. ANTIMICROBIALS: Cefepime. ALLERGIES: ZOSYN. PHYSICAL EXAMINATION: GENERAL: This is an obese, well-developed, chronically ill-appearing, middle- aged man who is in no distress. HEENT: Head atraumatic, normocephalic. Sclerae anicteric. Buccal mucosa dry. NECK: Supple. CHEST: Rise symmetrical. Breath sounds clear. HEART: S1, S2. ABDOMEN: Soft. Bowel tones present. ASSESSMENT: 1. Recurrent urinary tract infection. 2. Right lower extremity chronic wound with acute osteomyelitis. 3. Morbid obesity. 4. History of spina bifida and incomplete paraplegia. PLAN: The patient remains stable. Continue present care. Continue on current antibiotics. Consider PICC line placement as patient will require 6+ weeks IV antibiotics for osteomyelitis. F/o podiatry rec-s [facility] staff Problems: Consultation Date/Type/Reason Admit Date/Time Mar 10, 2017 at 22:16 Initial Consult Date 03/11/17 Type of Consultation: ID Exam/Review of Systems Vital Signs Vitals Vital Signs Date Time Temp Pulse Resp B/P Pulse Ox O2 Delivery O2 Flow Rate FiO2 03/14/17 14:10 98.3 82 16 133/66 94 03/13/17 20:00 Room Air Intake and Output 03/13/17 03/13/17 03/14/17 15:00 23:00 07:00 Intake Total 50 ml 370 ml 250 ml Balance 50 ml 370 ml 250 ml Results Result Diagram: 03/10/17204903/10/172049 Medications Medications Current Medications Enoxaparin Sodium (Lovenox) 40 mg QAM SC ; Start 03/11/17 at 09:00 Acetaminophen/ Hydrocodone Bitart 1 tab 1 tab Q4H PRN NGT PAIN LEVEL 1-3 Last administered on 03/12/17t 22:22; Admin Dose 1 TAB; Start 03/10/17 at 23:00 Cefepime HCl (Maxipime 1gm/50 ml (Pmx)) 50 ml @ 100 mls/hr Q12 IVPB Last administered on 03/14/17 09:02; Admin Dose 100 MLS/HR; Start 03/11/17 at 09: 00 Collagenase (Santyl) 1 applic DAILY TOP Last administered on 03/14/17 09:05; Admin Dose 1 APPLIC; Start 03/12/17 at 09:00 Collagenase (Santyl) 1 applic PRN PRN TOP SOILING Last administered on 23:15; Admin Dose 1 APPLIC; Start 03/11/17 at 23:30 Hydromorphone HCl (Dilaudid) 4 mg Q4H PRN PO PAIN Last administered on 09:09; Admin Dose 4 MG; Start 03/12/17 at 11:00 Sodium Hypochlorite (Dakin'S (1/4 Strength)) 1 applic DAILY IRR Last administered on 03/14/17 09:04; Admin Dose 1 APPLIC; Start 03/12/17 at 15:00 PAT RODRIGUEZ NP Mar 14, 2017 14:54
[2017-03-14] MEDS: HYDROCODONE/APAP (5/325) TAB NGT PRN (17:51)
--- NOTE | 2017-03-14 18:07 | PN ---
Date/Time of Note Date/Time of Note DATE: 03/14/17 TIME: 18:06 Assessment/Plan VTE Prophylaxis VTE Prophylaxis Intervention: SCD's Lines/Catheters IV [facility] Type (from [facility] Mid Line Urinary Cath still in place: No Assessment/Plan Chief Complaint/Hosp Course Patient continues to refuse routine labs, is hemodynamically stable Assessment/Plan -Right lower extremity cellulitis with right malleolus wound, wound care consult evaluation. Dr. Keenan is following podiatry consultation. Dr. Galvan is following in infection disease consultation. Right foot MRI revealed osteomyelitis. -E. coli UTI -Systemic inflammatory response syndrome secondary to right foot soft tissue infection. -History of spina bifida with quadriplegia. -History of hydrocephalus status post COMMUNICATIONS ANALYST shunt. -Medical noncompliance Further recommendations based on clinical course. Plan of care discussed with Dr. Huynh Problems: Exam/Review of Systems Vital Signs Vitals Vital Signs Date Time Temp Pulse Resp B/P Pulse Ox O2 Delivery O2 Flow Rate FiO2 03/14/17 14:10 98.3 82 16 133/66 94 03/13/17 20:00 Room Air Intake and Output 03/13/17 03/13/17 03/14/17 15:00 23:00 07:00 Intake Total 50 ml 370 ml 250 ml Balance 50 ml 370 ml 250 ml Exam Constitutional: alert, oriented Respiratory: normal air movement Cardiovascular: nl pulses Gastrointestinal: non-tender, soft Musculoskeletal: muscle weakness Extremities: other (Right lower extremities redness and swelling) Results Result Diagram: 03/10/17204903/10/172049 Medications Medications Current Medications Enoxaparin Sodium (Lovenox) 40 mg QAM SC ; Start 03/11/17 at 09:00 Acetaminophen/ Hydrocodone Bitart 1 tab 1 tab Q4H PRN NGT PAIN LEVEL 1-3 Last administered on 03/14/17 17:51; Admin Dose 1 TAB; Start 03/10/17 at 23:00 Cefepime HCl (Maxipime 1gm/50 ml (Pmx)) 50 ml @ 100 mls/hr Q12 IVPB Last administered on 03/14/17 09:02; Admin Dose 100 MLS/HR; Start 03/11/17 at 09: 00 Collagenase (Santyl) 1 applic DAILY TOP Last administered on 03/14/17 09:05; Admin Dose 1 APPLIC; Start 03/12/17 at 09:00 Collagenase (Santyl) 1 applic PRN PRN TOP SOILING Last administered on 23:15; Admin Dose 1 APPLIC; Start 03/11/17 at 23:30 Hydromorphone HCl (Dilaudid) 4 mg Q4H PRN PO PAIN Last administered on 15:29; Admin Dose 4 MG; Start 03/12/17 at 11:00 Sodium Hypochlorite (Dakin'S (1/4 Strength)) 1 applic DAILY IRR Last administered on 03/14/17 09:04; Admin Dose 1 APPLIC; Start 03/12/17 at 15:00 BLADIMIR BROWER Mar 14, 2017 18:07
[2017-03-14 20:00] VITALS: BP 141/75; RESP 18
[2017-03-15 02:00] VITALS: BP 140/80; RESP 18
[2017-03-15] MEDS: HYDROmorphONE 2 MG TAB PO PRN ×7 (04:17→22:33)
[2017-03-15 07:40] VITALS: BP 110/60; RESP 16
[2017-03-15] MEDS: SODIUM HYPOCHLORITE 0.125% 473 ML BTL IRR SCH (08:55)
[2017-03-15] MEDS: CEFEPIME 1GM/50 ML IVPB SCH ×2 (08:55→20:55)
[2017-03-15] MEDS: HYDROCODONE/APAP (5/325) TAB NGT PRN (08:57)
[2017-03-15] MEDS: COLLAGENASE 30 GM TUBE TOP SCH (08:57)
[2017-03-15] MEDS: ENOXAPARIN 40 MG/0.4 ML SYG SC SCH ×2 (08:58→09:00)
[2017-03-15] MEDS ORDERED: ONDANSETRON 4 MG INJ IV PRN (10:00)
--- NOTE | 2017-03-15 11:28 | PN ---
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 The radiology report reports significant amount of gas going into the ankle however this is due to the fact that the patient has an open wound. There is no significant gas communicating with the ankle joint. There is significant fluid in the joint however. I would like patient to continue on IV antibiotics. He may require incision and drainage of his condition does not improve. Patient will be followed in-house. Subjective 24 Hr Interval Summary Patient was seen at bedside. Patient is in no acute distress. Patient reports no new adverse events. Patient denies fever, chills, nausea or vomiting. Patient denies pain. Patient denies recent trauma. Patient reports bandages are being changed as directed. Patient does not report any new problems. Pain Control: well controlled Exam/Review of Systems Vital Signs Vitals Vital Signs Date Time Temp Pulse Resp B/P Pulse Ox O2 Delivery O2 Flow Rate FiO2 03/16/17 08:12 97.6 86 16 116/70 94 03/13/17 20:00 Room Air Intake and Output 03/15/17 03/15/17 03/16/17 15:00 23:00 07:00 Intake Total 50 ml 850 ml 640 ml Balance 50 ml 850 ml 640 ml Exam Free Text/Dictation Morbidly obese laying supine in bed. Paraplegic. Open wound improved with less erythema no drainage. Edema is slightly decreased. Nontender to exam. Palpable pulses but weak. No sensation to sharp dull vibratory temperature stimuli. Labs reviewed. Imaging reviewed. SEVERIANO MENARD DPM Mar 15, 2017 11:28
[2017-03-15 14:09] VITALS: BP 123/70; RESP 16
--- NOTE | 2017-03-15 14:25 | CONS ---
Date/Time of Note Date/Time of Note DATE: 03/15/17 TIME: 14:24 Assessment/Plan Assessment/Plan Chief Complaint/Hosp Course SUBJECTIVE: No acute changes. Patient is sleeping arousable denies pain, no fevers MICROBIOLOGY: Right ankle wound culture growing E. coli, strep, oxacillin sensitive staph aureus and Proteus mirabilis. Urine culture growing E. coli. ANTIMICROBIALS: Cefepime. ALLERGIES: ZOSYN. PHYSICAL EXAMINATION: GENERAL: This is an obese, well-developed, chronically ill-appearing, middle- aged man who is in no distress. HEENT: Head atraumatic, normocephalic. Sclerae anicteric. Buccal mucosa dry. NECK: Supple. CHEST: Rise symmetrical. Breath sounds clear. HEART: S1, S2. ABDOMEN: Soft. Bowel tones present. ASSESSMENT: 1. Recurrent urinary tract infection. 2. Right lower extremity chronic wound with acute osteomyelitis. 3. Morbid obesity. 4. History of spina bifida and incomplete paraplegia. PLAN: The patient remains stable. Continue present care. Continue on current antibiotics. Consider PICC line placement as patient will require 6+ weeks IV antibiotics for osteomyelitis. F/o podiatry rec-s [facility] staff Problems: Consultation Date/Type/Reason Admit Date/Time Mar 10, 2017 at 22:16 Initial Consult Date 03/11/17 Type of Consultation: ID Exam/Review of Systems Vital Signs Vitals Vital Signs Date Time Temp Pulse Resp B/P Pulse Ox O2 Delivery O2 Flow Rate FiO2 03/15/17 14:09 97.5 82 16 123/70 94 03/13/17 20:00 Room Air Intake and Output 03/14/17 03/14/17 03/15/17 14:59 22:59 06:59 Intake Total 50 ml 1050 ml 940 ml Balance 50 ml 1050 ml 940 ml Medications Medications Current Medications Enoxaparin Sodium (Lovenox) 40 mg QAM SC ; Start 03/11/17 at 09:00 Acetaminophen/ Hydrocodone Bitart 1 tab 1 tab Q4H PRN NGT PAIN LEVEL 1-3 Last administered on 03/15/17t 08:57; Admin Dose 1 TAB; Start 03/10/17 at 23:00 Cefepime HCl (Maxipime 1gm/50 ml (Pmx)) 50 ml @ 100 mls/hr Q12 IVPB Last administered on 03/15/17 08:55; Admin Dose 100 MLS/HR; Start 03/11/17 at 09: 00 Collagenase (Santyl) 1 applic DAILY TOP Last administered on 03/15/17 08:57; Admin Dose 1 APPLIC; Start 03/12/17 at 09:00 Collagenase (Santyl) 1 applic PRN PRN TOP SOILING Last administered on 23:15; Admin Dose 1 APPLIC; Start 03/11/17 at 23:30 Hydromorphone HCl (Dilaudid) 4 mg Q4H PRN PO PAIN Last administered on 14:03; Admin Dose 4 MG; Start 03/12/17 at 11:00 Sodium Hypochlorite (Dakin'S (1/4 Strength)) 1 applic DAILY IRR Last administered on 03/15/17 08:55; Admin Dose 1 APPLIC; Start 03/12/17 at 15:00 Ondansetron HCl (Zofran Inj) 4 mg Q6H PRN IV NAUSEA AND/OR VOMITING; Start at 10:00 PAT RODRIGUEZ NP Mar 15, 2017 14:25
[2017-03-15] MEDS ORDERED: MAGNESIUM HYDROXIDE 30ML CUP PO ONE (18:00)
[2017-03-15] MEDS ORDERED: BISACODYL (EC) 5 MG TAB PO PRN (18:00)
--- NOTE | 2017-03-15 20:25 | PN ---
Date/Time of Note Date/Time of Note DATE: 03/15/17 TIME: 20:24 Assessment/Plan VTE Prophylaxis VTE Prophylaxis Intervention: other Lines/Catheters IV [facility]from [facility] Mid Line Urinary Cath still in place: No Assessment/Plan Assessment/Plan -Right lower extremity cellulitis with right malleolus wound, wound care consult evaluation. Dr. Keenan is following podiatry consultation. Dr. Galvan is following in infection disease consultation. Right foot MRI revealed osteomyelitis. -E. coli UTI -Systemic inflammatory response syndrome secondary to right foot soft tissue infection. -History of spina bifida with quadriplegia. -History of hydrocephalus status post IVORY CARVER shunt. -Medical noncompliance Further recommendations based on clinical course. Plan of care discussed with Dr. Huynh Exam/Review of Systems Vital Signs Vitals Vital Signs Date Time Temp Pulse Resp B/P Pulse Ox O2 Delivery O2 Flow Rate FiO2 03/15/17 14:09 97.5 82 16 123/70 94 03/13/17 20:00 Room Air Intake and Output 03/14/17 03/14/17 03/15/17 15:00 23:00 07:00 Intake Total 50 ml 1050 ml 940 ml Balance 50 ml 1050 ml 940 ml Exam nad, cooperative, right foot dressing changed by staff. Constitutional: alert Respiratory: diminished breath sounds Gastrointestinal: non-tender, soft Medications Medications Current Medications Enoxaparin Sodium (Lovenox) 40 mg QAM SC ; Start 03/11/17 at 09:00 Acetaminophen/ Hydrocodone Bitart 1 tab 1 tab Q4H PRN NGT PAIN LEVEL 1-3 Last administered on 03/15/17 08:57; Admin Dose 1 TAB; Start 03/10/17 at 23:00 Cefepime HCl (Maxipime 1gm/50 ml (Pmx)) 50 ml @ 100 mls/hr Q12 IVPB Last administered on 03/15/17 08:55; Admin Dose 100 MLS/HR; Start 03/11/17 at 09: 00 Collagenase (Santyl) 1 applic DAILY TOP Last administered on 03/15/17 08:57; Admin Dose 1 APPLIC; Start 03/12/17 at 09:00 Collagenase (Santyl) 1 applic PRN PRN TOP SOILING Last administered on 23:15; Admin Dose 1 APPLIC; Start 03/11/17 at 23:30 Hydromorphone HCl (Dilaudid) 4 mg Q4H PRN PO PAIN Last administered on 17:25; Admin Dose 4 MG; Start 03/12/17 at 11:00 Sodium Hypochlorite (Dakin'S (1/4 Strength)) 1 applic DAILY IRR Last administered on 03/15/17 08:55; Admin Dose 1 APPLIC; Start 03/12/17 at 15:00 Ondansetron HCl (Zofran Inj) 4 mg Q6H PRN IV NAUSEA AND/OR VOMITING; Start at 10:00 Docusate Sodium (Colace) 100 mg BID PO ; Start 03/15/17 at 21:00 Bisacodyl (Dulcolax) 5 mg DAILY PRN PO CONSTIPATION; Start 03/15/17 at 18:00 JOSEPHINE CRAWFORD Mar 15, 2017 20:25
[2017-03-15] MEDS: DOCUSATE SODIUM 100 MG CAP PO SCH (20:55)
[2017-03-15 21:08] VITALS: BP 116/58; RESP 18
[2017-03-16 03:12] VITALS: BP 127/67; RESP 16
[2017-03-16] MEDS: HYDROmorphONE 2 MG TAB PO PRN ×4 (03:33→19:55)
[2017-03-16 08:12] VITALS: BP 116/70; RESP 16
[2017-03-16] MEDS: CEFEPIME 1GM/50 ML IVPB SCH ×2 (08:20→19:55)
[2017-03-16] MEDS: DOCUSATE SODIUM 100 MG CAP PO SCH ×2 (08:27→21:00)
[2017-03-16] MEDS: ENOXAPARIN 40 MG/0.4 ML SYG SC SCH (08:27)
--- NOTE | 2017-03-16 13:26 | PN ---
Date/Time of Note Date/Time of Note DATE: 03/16/17 TIME: 13:26 Assessment/Plan Lines/Catheters IV Catheter Type (from Nrsg): Mid Line Urinary Cath still in place: No Assessment/Plan Assessment/Plan -Right lower extremity cellulitis with right malleolus wound, wound care consult evaluation. Dr. Keenan is following podiatry consultation. Dr. Galvan is following in infection disease consultation. Right foot MRI revealed osteomyelitis. -E. coli UTI -Systemic inflammatory response syndrome secondary to right foot soft tissue infection. -History of spina bifida with quadriplegia. -History of hydrocephalus status post LINE UP WORKER shunt. -Medical noncompliance Further recommendations based on clinical course. Plan of care discussed with Dr. Huynh Exam/Review of Systems Vital Signs Vitals Vital Signs Date Time Temp Pulse Resp B/P Pulse Ox O2 Delivery O2 Flow Rate FiO2 03/16/17 08:12 97.6 86 16 116/70 94 03/13/17 20:00 Room Air Intake and Output 03/15/17 03/15/17 03/16/17 15:00 23:00 07:00 Intake Total 50 ml 850 ml 640 ml Balance 50 ml 850 ml 640 ml Medications Medications Current Medications Enoxaparin Sodium (Lovenox) 40 mg QAM SC ; Start 03/11/17 at 09:00 Acetaminophen/ Hydrocodone Bitart 1 tab 1 tab Q4H PRN NGT PAIN LEVEL 1-3 Last administered on 03/15/17 08:57; Admin Dose 1 TAB; Start 03/10/17 at 23:00 Cefepime HCl (Maxipime 1gm/50 ml (Pmx)) 50 ml @ 100 mls/hr Q12 IVPB Last administered on 03/16/17 08:20; Admin Dose 100 MLS/HR; Start 03/11/17 at 09: 00 Collagenase (Santyl) 1 applic DAILY TOP Last administered on 03/15/17 08:57; Admin Dose 1 APPLIC; Start 03/12/17 at 09:00 Collagenase (Santyl) 1 applic PRN PRN TOP SOILING Last administered on 23:15; Admin Dose 1 APPLIC; Start 03/11/17 at 23:30 Hydromorphone HCl (Dilaudid) 4 mg Q4H PRN PO PAIN Last administered on 09:12; Admin Dose 4 MG; Start 03/12/17 at 11:00 Sodium Hypochlorite (Dakin'S (1/4 Strength)) 1 applic DAILY IRR Last administered on 03/15/17 08:55; Admin Dose 1 APPLIC; Start 03/12/17 at 15:00 Ondansetron HCl (Zofran Inj) 4 mg Q6H PRN IV NAUSEA AND/OR VOMITING; Start at 10:00 Docusate Sodium (Colace) 100 mg BID PO ; Start 03/15/17 at 21:00 Bisacodyl (Dulcolax) 5 mg DAILY PRN PO CONSTIPATION; Start 03/15/17 at 18:00 JOSEPHINE CRAWFORD Mar 16, 2017 13:26
[2017-03-16 14:13] VITALS: BP 141/67; RESP 18
[2017-03-16] MEDS: SODIUM HYPOCHLORITE 0.125% 473 ML BTL IRR SCH (14:45)
[2017-03-16] MEDS: COLLAGENASE 30 GM TUBE TOP SCH (14:45)
--- NOTE | 2017-03-16 16:30 | CONS ---
Date/Time of Note Date/Time of Note DATE: 03/16/17 TIME: 16:26 Consultation Date/Type/Reason Admit Date/Time Mar 10, 2017 at 22:16 Initial Consult Date SUBJECTIVE: 27 y/o male being followed for UTI and RT LE OM and cellulitis. No acute changes. Patient is awake, alert.Denies pain, fevers. VS: 141/67 P:84 R:18 SO2:99% T:97.9 LABS: Reviewed. --- Right foot MRI revealed osteomyelitis. MICROBIOLOGY: Right ankle wound culture growing E. coli, strep, oxacillin sensitive staph aureus and Proteus mirabilis. Urine culture growing E. coli. ANTIMICROBIALS: Cefepime. ALLERGIES: ZOSYN. PHYSICAL EXAMINATION: GENERAL: This is an obese, well-developed, chronically ill-appearing, middle- aged man who is in no distress. HEENT: Head atraumatic, normocephalic. Sclerae anicteric. Buccal mucosa dry. NECK: Supple. CHEST: Rise symmetrical. Breath sounds clear. HEART: S1, S2. ABDOMEN: Soft. Bowel tones present. ASSESSMENT: 1. Recurrent urinary tract infection. 2. Right lower extremity chronic wound with acute osteomyelitis. 3. Morbid obesity. 4. History of spina bifida and incomplete paraplegia. PLAN: The patient remains stable. Continue on current antibiotics. Consider PICC line placement as patient will require 6+ weeks IV antibiotics for osteomyelitis. F/o podiatry rec-s Type of Consultation: ID Exam/Review of Systems Vital Signs Vitals Vital Signs Date Time Temp Pulse Resp B/P Pulse Ox O2 Delivery O2 Flow Rate FiO2 03/16/17 14:13 97.9 84 18 141/67 99 03/13/17 20:00 Room Air Intake and Output 03/15/17 03/15/17 03/16/17 15:00 23:00 07:00 Intake Total 50 ml 850 ml 640 ml Balance 50 ml 850 ml 640 ml Medications Medications Current Medications Enoxaparin Sodium (Lovenox) 40 mg QAM SC ; Start 03/11/17 at 09:00 Acetaminophen/ Hydrocodone Bitart 1 tab 1 tab Q4H PRN NGT PAIN LEVEL 1-3 Last administered on 03/15/17t 08:57; Admin Dose 1 TAB; Start 03/10/17 at 23:00 Cefepime HCl (Maxipime 1gm/50 ml (Pmx)) 50 ml @ 100 mls/hr Q12 IVPB Last administered on 03/16/17 08:20; Admin Dose 100 MLS/HR; Start 03/11/17 at 09: 00 Collagenase (Santyl) 1 applic DAILY TOP Last administered on 03/16/17 14:45; Admin Dose 1 APPLIC; Start 03/12/17 at 09:00 Collagenase (Santyl) 1 applic PRN PRN TOP SOILING Last administered on 23:15; Admin Dose 1 APPLIC; Start 03/11/17 at 23:30 Hydromorphone HCl (Dilaudid) 4 mg Q4H PRN PO PAIN Last administered on 14:42; Admin Dose 4 MG; Start 03/12/17 at 11:00 Sodium Hypochlorite (Dakin'S (1/4 Strength)) 1 applic DAILY IRR Last administered on 03/16/17 14:45; Admin Dose 1 APPLIC; Start 03/12/17 at 15:00 Ondansetron HCl (Zofran Inj) 4 mg Q6H PRN IV NAUSEA AND/OR VOMITING; Start at 10:00 Docusate Sodium (Colace) 100 mg BID PO ; Start 03/15/17 at 21:00 Bisacodyl (Dulcolax) 5 mg DAILY PRN PO CONSTIPATION; Start 03/15/17 at 18:00 LENI UNGER Mar 16, 2017 16:30
[2017-03-16 20:21] VITALS: BP 127/66; RESP 16
[2017-03-17] MEDS: HYDROmorphONE 2 MG TAB PO PRN ×3 (00:11→22:37)
[2017-03-17 02:50] VITALS: BP 131/80; RESP 16
[2017-03-17 08:05] VITALS: BP 130/75; RESP 20
[2017-03-17] MEDS: CEFEPIME 1GM/50 ML IVPB SCH ×2 (08:49→21:26)
[2017-03-17] MEDS: COLLAGENASE 30 GM TUBE TOP SCH (08:55)
[2017-03-17] MEDS: DOCUSATE SODIUM 100 MG CAP PO SCH ×3 (08:55→21:26)
[2017-03-17] MEDS: ENOXAPARIN 40 MG/0.4 ML SYG SC SCH (08:55)
[2017-03-17] MEDS: SODIUM HYPOCHLORITE 0.125% 473 ML BTL IRR SCH (08:56)
[2017-03-17 14:47] VITALS: BP 137/73; RESP 20
--- NOTE | 2017-03-17 15:06 | CONS ---
Date/Time of Note Date/Time of Note DATE: 03/17/17 TIME: 15:05 Assessment/Plan Assessment/Plan Chief Complaint/Hosp Course SUBJECTIVE: No acute changes. MICROBIOLOGY: Right ankle wound culture growing E. coli, strep, oxacillin sensitive staph aureus and Proteus mirabilis. Urine culture growing E. coli. ANTIMICROBIALS: Cefepime. ALLERGIES: ZOSYN. PHYSICAL EXAMINATION: GENERAL: This is an obese, well-developed, chronically ill-appearing, middle- aged man who is in no distress. HEENT: Head atraumatic, normocephalic. Sclerae anicteric. Buccal mucosa dry. NECK: Supple. CHEST: Rise symmetrical. Breath sounds clear. HEART: S1, S2. ABDOMEN: Soft. Bowel tones present. ASSESSMENT: 1. Recurrent urinary tract infection. 2. Right lower extremity chronic wound with acute osteomyelitis. 3. Morbid obesity. 4. History of spina bifida and incomplete paraplegia. PLAN: The patient remains stable. Continue present care. Continue on current antibiotics. Needs PICC line ==> abx for 6+ weeks [facility] staff Problems: Consultation Date/Type/Reason Admit Date/Time Mar 10, 2017 at 22:16 Initial Consult Date 03/11/17 Type of Consultation: ID Exam/Review of Systems Vital Signs Vitals Vital Signs Date Time Temp Pulse Resp B/P Pulse Ox O2 Delivery O2 Flow Rate FiO2 03/17/17 14:47 97.8 84 20 137/73 98 03/13/17 20:00 Room Air Intake and Output 03/16/17 03/16/17 03/17/17 15:00 23:00 07:00 Intake Total 1080 ml 980 ml Balance 1080 ml 980 ml Medications Medications Current Medications Enoxaparin Sodium (Lovenox) 40 mg QAM SC ; Start 03/11/17 at 09:00 Acetaminophen/ Hydrocodone Bitart 1 tab 1 tab Q4H PRN NGT PAIN LEVEL 1-3 Last administered on 03/15/17 08:57; Admin Dose 1 TAB; Start 03/10/17 at 23:00 Cefepime HCl (Maxipime 1gm/50 ml (Pmx)) 50 ml @ 100 mls/hr Q12 IVPB Last administered on 03/17/17 08:49; Admin Dose 100 MLS/HR; Start 03/11/17 at 09: 00 Collagenase (Santyl) 1 applic DAILY TOP Last administered on 03/17/17 08:55; Admin Dose 1 APPLIC; Start 03/12/17 at 09:00 Collagenase (Santyl) 1 applic PRN PRN TOP SOILING Last administered on 23:15; Admin Dose 1 APPLIC; Start 03/11/17 at 23:30 Hydromorphone HCl (Dilaudid) 4 mg Q4H PRN PO PAIN Last administered on 06:53; Admin Dose 4 MG; Start 03/12/17 at 11:00 Sodium Hypochlorite (Dakin'S (1/4 Strength)) 1 applic DAILY IRR Last administered on 03/17/17 08:56; Admin Dose 1 APPLIC; Start 03/12/17 at 15:00 Ondansetron HCl (Zofran Inj) 4 mg Q6H PRN IV NAUSEA AND/OR VOMITING; Start at 10:00 Docusate Sodium (Colace) 100 mg BID PO ; Start 03/15/17 at 21:00 Bisacodyl (Dulcolax) 5 mg DAILY PRN PO CONSTIPATION; Start 03/15/17 at 18:00 PAT RODRIGUEZ NP Mar 17, 2017 15:06
--- NOTE | 2017-03-17 18:05 | PN ---
Date/Time of Note Date/Time of Note DATE: 03/17/17 TIME: 18:04 Assessment/Plan VTE Prophylaxis VTE Prophylaxis Intervention: SCD's Lines/Catheters IV [facility]ter [facility]from [facility] Mid Line Urinary Cath still in place: No Assessment/Plan Chief Complaint/Hosp Course Assessment/Plan -Right lower extremity cellulitis with right malleolus wound, wound care consult evaluation. Dr. Keenan is following podiatry consultation. Dr. Galvan is following in infection disease consultation. Right foot MRI revealed osteomyelitis. -E. coli UTI -Systemic inflammatory response syndrome secondary to right foot soft tissue infection. -History of spina bifida with quadriplegia. -History of hydrocephalus status post BUDGET ENGINEER shunt. -Medical noncompliance Further recommendations based on clinical course. Plan of care discussed with Dr. Huynh Problems: Exam/Review of Systems Vital Signs Vitals Vital Signs Date Time Temp Pulse Resp B/P Pulse Ox O2 Delivery O2 Flow Rate FiO2 03/17/17 14:47 97.8 84 20 137/73 98 03/13/17 20:00 Room Air Intake and Output 03/16/17 03/16/17 03/17/17 15:00 23:00 07:00 Intake Total 1080 ml 980 ml Balance 1080 ml 980 ml Exam Constitutional: alert, oriented Respiratory: normal air movement Cardiovascular: nl pulses Gastrointestinal: non-tender, soft Musculoskeletal: muscle weakness Extremities: other (Right lower extremities redness and swelling) Medications Medications Current Medications Enoxaparin Sodium (Lovenox) 40 mg QAM SC ; Start 03/11/17 at 09:00 Acetaminophen/ Hydrocodone Bitart 1 tab 1 tab Q4H PRN NGT PAIN LEVEL 1-3 Last administered on 03/15/17 08:57; Admin Dose 1 TAB; Start 03/10/17 at 23:00 Cefepime HCl (Maxipime 1gm/50 ml (Pmx)) 50 ml @ 100 mls/hr Q12 IVPB Last administered on 03/17/17 08:49; Admin Dose 100 MLS/HR; Start 03/11/17 at 09: 00 Collagenase (Santyl) 1 applic DAILY TOP Last administered on 03/17/17 08:55; Admin Dose 1 APPLIC; Start 03/12/17 at 09:00 Collagenase (Santyl) 1 applic PRN PRN TOP SOILING Last administered on 23:15; Admin Dose 1 APPLIC; Start 03/11/17 at 23:30 Hydromorphone HCl (Dilaudid) 4 mg Q4H PRN PO PAIN Last administered on 06:53; Admin Dose 4 MG; Start 03/12/17 at 11:00 Sodium Hypochlorite (Dakin'S (1/4 Strength)) 1 applic DAILY IRR Last administered on 03/17/17 08:56; Admin Dose 1 APPLIC; Start 03/12/17 at 15:00 Ondansetron HCl (Zofran Inj) 4 mg Q6H PRN IV NAUSEA AND/OR VOMITING; Start at 10:00 Docusate Sodium (Colace) 100 mg BID PO ; Start 03/15/17 at 21:00 Bisacodyl (Dulcolax) 5 mg DAILY PRN PO CONSTIPATION; Start 03/15/17 at 18:00 BLADIMIR BROWER Mar 17, 2017 18:05
[2017-03-17 20:27] VITALS: BP 127/60; RESP 18
[2017-03-18 02:57] VITALS: BP 126/70; RESP 16
[2017-03-18] MEDS: HYDROmorphONE 2 MG TAB PO PRN ×4 (04:02→17:58)
[2017-03-18 08:03] VITALS: BP 126/64; RESP 20
[2017-03-18] MEDS: CEFEPIME 1GM/50 ML IVPB SCH ×2 (08:28→21:27)
[2017-03-18] MEDS: ENOXAPARIN 40 MG/0.4 ML SYG SC SCH (08:28)
[2017-03-18] MEDS: DOCUSATE SODIUM 100 MG CAP PO SCH ×2 (08:28→21:00)
--- NOTE | 2017-03-18 10:34 | CONS ---
Date/Time of Note Date/Time of Note DATE: 03/18/17 TIME: 10:34 Assessment/Plan Assessment/Plan Chief Complaint/Hosp Course SUBJECTIVE: No acute changes. Sleeping, no fevers MICROBIOLOGY: Right ankle wound culture growing E. coli, strep, oxacillin sensitive staph aureus and Proteus mirabilis. Urine culture growing E. coli. ANTIMICROBIALS: Cefepime. ALLERGIES: ZOSYN. PHYSICAL EXAMINATION: GENERAL: This is an obese, well-developed, chronically ill-appearing, middle- aged man who is in no distress. HEENT: Head atraumatic, normocephalic. Sclerae anicteric. Buccal mucosa dry. NECK: Supple. CHEST: Rise symmetrical. Breath sounds clear. HEART: S1, S2. ABDOMEN: Soft. Bowel tones present. ASSESSMENT: 1. Recurrent urinary tract infection. 2. Right lower extremity chronic wound with acute osteomyelitis. 3. Morbid obesity. 4. History of spina bifida and incomplete paraplegia. PLAN: The patient remains stable. Continue on current antibiotics. Needs PICC line ==> abx for 6+ weeks, consider PT [facility] staff Problems: Consultation Date/Type/Reason Admit Date/Time Mar 10, 2017 at 22:16 Initial Consult Date 03/11/17 Type of Consultation: ID Exam/Review of Systems Vital Signs Vitals Vital Signs Date Time Temp Pulse Resp B/P Pulse Ox O2 Delivery O2 Flow Rate FiO2 03/18/17 08:03 98.1 80 20 126/64 99 Intake and Output 03/17/17 03/17/17 03/18/17 15:00 23:00 07:00 Intake Total 50 ml 1290 ml 920 ml Balance 50 ml 1290 ml 920 ml Results Results 24 hrs Laboratory Tests Test 03/18/17 10:33 Lab Scanned Report REFERENCE LAB Medications Medications Current Medications Enoxaparin Sodium (Lovenox) 40 mg QAM SC ; Start 03/11/17 at 09:00 Acetaminophen/ Hydrocodone Bitart 1 tab 1 tab Q4H PRN NGT PAIN LEVEL 1-3 Last administered on 03/15/17 08:57; Admin Dose 1 TAB; Start 03/10/17 at 23:00 Cefepime HCl (Maxipime 1gm/50 ml (Pmx)) 50 ml @ 100 mls/hr Q12 IVPB Last administered on 03/18/17 08:28; Admin Dose 100 MLS/HR; Start 03/11/17 at 09: 00 Collagenase (Santyl) 1 applic DAILY TOP Last administered on 03/17/17 08:55; Admin Dose 1 APPLIC; Start 03/12/17 at 09:00 Collagenase (Santyl) 1 applic PRN PRN TOP SOILING Last administered on 23:15; Admin Dose 1 APPLIC; Start 03/11/17 at 23:30 Hydromorphone HCl (Dilaudid) 4 mg Q4H PRN PO PAIN Last administered on 08:22; Admin Dose 4 MG; Start 03/12/17 at 11:00 Sodium Hypochlorite (Dakin'S (1/4 Strength)) 1 applic DAILY IRR Last administered on 03/17/17 08:56; Admin Dose 1 APPLIC; Start 03/12/17 at 15:00 Ondansetron HCl (Zofran Inj) 4 mg Q6H PRN IV NAUSEA AND/OR VOMITING; Start at 10:00 Docusate Sodium (Colace) 100 mg BID PO ; Start 03/15/17 at 21:00 Bisacodyl (Dulcolax) 5 mg DAILY PRN PO CONSTIPATION; Start 03/15/17 at 18:00 PAT RODRIGUEZ NP Mar 18, 2017 10:34
[2017-03-18] MEDS: SODIUM HYPOCHLORITE 0.125% 473 ML BTL IRR SCH (13:32)
[2017-03-18] MEDS: COLLAGENASE 30 GM TUBE TOP SCH (13:32)
[2017-03-18 14:27] VITALS: BP 120/72; RESP 20
--- NOTE | 2017-03-18 18:52 | PN ---
Date/Time of Note Date/Time of Note DATE: 03/18/17 TIME: 18:49 Assessment/Plan VTE Prophylaxis VTE Prophylaxis Intervention: SCD's Lines/Catheters IV Catheter Type (from Nrs): Mid Line Urinary Cath still in place: No Assessment/Plan Chief Complaint/Hosp Course Patient continues to refuse lab draw, patient has a midline, continue antibiotics per ID Assessment/Plan -Right lower extremity cellulitis with right malleolus wound, wound care consult evaluation. Dr. Keenan is following podiatry consultation. Dr. Galvan is following in infection disease consultation. Right foot MRI revealed osteomyelitis. -E. coli UTI -Systemic inflammatory response syndrome secondary to right foot soft tissue infection. -History of spina bifida with quadriplegia. -History of hydrocephalus status post ACCOUNT EXECUTIVE AGRIBUSINESS shunt. -Medical noncompliance Further recommendations based on clinical course. Plan of care discussed with Dr. Huynh Problems: Exam/Review of Systems Vital Signs Vitals Vital Signs Date Time Temp Pulse Resp B/P Pulse Ox O2 Delivery O2 Flow Rate FiO2 03/18/17 14:27 98.0 82 20 120/72 98 Intake and Output 03/17/17 03/17/17 03/18/17 15:00 23:00 07:00 Intake Total 50 ml 1290 ml 920 ml Balance 50 ml 1290 ml 920 ml Exam Constitutional: alert, oriented Respiratory: normal air movement Cardiovascular: nl pulses Gastrointestinal: non-tender, soft Musculoskeletal: muscle weakness Extremities: other (Right foot wound) Results Results 24 hrs Laboratory Tests Test 03/18/17 10:33 Lab Scanned Report REFERENCE LAB Medications Medications Current Medications Enoxaparin Sodium (Lovenox) 40 mg QAM SC ; Start 03/11/17 at 09:00 Acetaminophen/ Hydrocodone Bitart 1 tab 1 tab Q4H PRN NGT PAIN LEVEL 1-3 Last administered on 03/15/17 08:57; Admin Dose 1 TAB; Start 03/10/17 at 23:00 Cefepime HCl (Maxipime 1gm/50 ml (Pmx)) 50 ml @ 100 mls/hr Q12 IVPB Last administered on 03/18/17 08:28; Admin Dose 100 MLS/HR; Start 03/11/17 at 09: 00 Collagenase (Santyl) 1 applic DAILY TOP Last administered on 03/18/17 13:32; Admin Dose 1 APPLIC; Start 03/12/17 at 09:00 Collagenase (Santyl) 1 applic PRN PRN TOP SOILING Last administered on 23:15; Admin Dose 1 APPLIC; Start 03/11/17 at 23:30 Hydromorphone HCl (Dilaudid) 4 mg Q4H PRN PO PAIN Last administered on 17:58; Admin Dose 4 MG; Start 03/12/17 at 11:00 Sodium Hypochlorite (Dakin'S (1/4 Strength)) 1 applic DAILY IRR Last administered on 03/18/17 13:32; Admin Dose 1 APPLIC; Start 03/12/17 at 15:00 Ondansetron HCl (Zofran Inj) 4 mg Q6H PRN IV NAUSEA AND/OR VOMITING; Start at 10:00 Docusate Sodium (Colace) 100 mg BID PO ; Start 03/15/17 at 21:00 Bisacodyl (Dulcolax) 5 mg DAILY PRN PO CONSTIPATION; Start 03/15/17 at 18:00 Nystatin (Nystatin Powder) 1 applic BID TOP ; Start 03/18/17 at 21:00; Status BLADIMIR MONTGOMERY Mar 18, 2017 18:52
[2017-03-18] MEDS ORDERED: LIDOCAINE 1% (MPF) 5 ML VIAL SC ONE (19:00)
[2017-03-18 20:00] VITALS: BP 122/67; RESP 19
[2017-03-18] MEDS: NYSTATIN 30 GM POWDER BTL TOP SCH (21:00)
[2017-03-19 02:00] VITALS: BP 108/55; RESP 18
[2017-03-19] MEDS: HYDROmorphONE 2 MG TAB PO PRN ×4 (02:58→21:12)
[2017-03-19 07:41] VITALS: BP 98/53; RESP 18
[2017-03-19] MEDS: DOCUSATE SODIUM 100 MG CAP PO SCH ×2 (09:00→21:00)
[2017-03-19] MEDS: ENOXAPARIN 40 MG/0.4 ML SYG SC SCH (09:00)
[2017-03-19] MEDS: SODIUM HYPOCHLORITE 0.125% 473 ML BTL IRR SCH (09:24)
[2017-03-19] MEDS: CEFEPIME 1GM/50 ML IVPB SCH ×2 (09:40→21:12)
[2017-03-19] MEDS: NYSTATIN 30 GM POWDER BTL TOP SCH ×2 (09:40→21:17)
[2017-03-19] MEDS: COLLAGENASE 30 GM TUBE TOP SCH (09:40)
[2017-03-19 09:47] VITALS: BP 140/73; PULSE 91
[2017-03-19] MEDS ORDERED: SOD CHLORIDE 0.9% 100 ML ONE (11:36)
--- NOTE | 2017-03-19 13:30 | RADRPT ---
PROCEDURE: XR Chest. CLINICAL INDICATION: PICC line placement TECHNIQUE: Single frontal view of the chest was obtained COMPARISON: 06/04/16 FINDINGS: There is a new right-sided PICC line in place with its tip overlying the cavoatrial junction. The heart is normal in size. There is mild right lower lobe atelectasis. There is a left-sided SENIOR JAVA J2EE DEVELOPER sh unt in place. There is old shunt tubing noted in the right chest. RPTAT: AA IMPRESSION: New PICC line in appropriate position. .Lanre Burch MD, MD Date Time Electronically viewed and signed by .Lanre Burch MD, MD on 03/19/2017 13:29 .S/
--- NOTE | 2017-03-19 13:47 | RADRPT ---
PROCEDURE: US guidance for PICC line CLINICAL INDICATION: PICC line placement TECHNIQUE: Multiple real-time images were acquired of the patient's arm utilizing a high resolutio n transducer. This was performed by the PICC line nurse for venous access. COMPARISON: None FINDINGS: Ultrasound guidance for PICC line placement. IMPRESSION: Ultrasound guidance for PICC line placement. RPTAT: AA .Lanre Burch MD, MD Date Time Electronically viewed and signed by .Lanre Burch MD, on 03/19/2017 13:47 .S/
[2017-03-19 14:00] VITALS: BP 102/58; RESP 18
--- NOTE | 2017-03-19 15:21 | CONS ---
Date/Time of Note Date/Time of Note DATE: 03/19/17 TIME: 15:20 Assessment/Plan Assessment/Plan Chief Complaint/Hosp Course SUBJECTIVE: No acute changes. MICROBIOLOGY: Right ankle wound culture growing E. coli, strep, oxacillin sensitive staph aureus and Proteus mirabilis. Urine culture growing E. coli. ANTIMICROBIALS: Cefepime. ALLERGIES: ZOSYN. PHYSICAL EXAMINATION: GENERAL: This is an obese, well-developed, chronically ill-appearing, middle- aged man who is in no distress. HEENT: Head atraumatic, normocephalic. Sclerae anicteric. Buccal mucosa dry. NECK: Supple. CHEST: Rise symmetrical. Breath sounds clear. HEART: S1, S2. ABDOMEN: Soft. Bowel tones present. ASSESSMENT: 1. Recurrent urinary tract infection. 2. Right lower extremity chronic wound with acute osteomyelitis. 3. Morbid obesity. 4. History of spina bifida and incomplete paraplegia. PLAN: The patient remains stable. Anticipate dc on current abx for 6 weeks, s/ p PICC. Podiatry rec-s [facility] staff Problems: Consultation Date/Type/Reason Admit Date/Time Mar 10, 2017 at 22:16 Initial Consult Date 03/11/17 Type of Consultation: ID Exam/Review of Systems Vital Signs Vitals Vital Signs Date Time Temp Pulse Resp B/P Pulse Ox O2 Delivery O2 Flow Rate FiO2 03/19/17 09:47 91 140/73 03/19/17 07:41 98.1 18 97 Intake and Output 03/18/17 03/18/17 03/19/17 15:00 23:00 07:00 Intake Total 50 ml 1240 ml 480 ml Balance 50 ml 1240 ml 480 ml Results Results 24 hrs Laboratory Tests Test 03/19/17 14:37 White Blood Count Pending Red Blood Count Pending Hemoglobin Pending Hematocrit Pending Mean Corpuscular Volume Pending Mean Corpuscular Hemoglobin Pending Mean Corpuscular Hemoglobin Concent Pending Red Cell Distribution Width Pending Platelet Count Pending Mean Platelet Volume Pending Medications Medications Current Medications Enoxaparin Sodium (Lovenox) 40 mg QAM SC ; Start 03/11/17 at 09:00 Acetaminophen/ Hydrocodone Bitart 1 tab 1 tab Q4H PRN NGT PAIN LEVEL 1-3 Last administered on 03/15/17t 08:57; Admin Dose 1 TAB; Start 03/10/17 at 23:00 Cefepime HCl (Maxipime 1gm/50 ml (Pmx)) 50 ml @ 100 mls/hr Q12 IVPB Last administered on 03/19/17 09:40; Admin Dose 100 MLS/HR; Start 03/11/17 at 09: 00 Collagenase (Santyl) 1 applic DAILY TOP Last administered on 03/19/17 09:40; Admin Dose 1 APPLIC; Start 03/12/17 at 09:00 Collagenase (Santyl) 1 applic PRN PRN TOP SOILING Last administered on 23:15; Admin Dose 1 APPLIC; Start 03/11/17 at 23:30 Hydromorphone HCl (Dilaudid) 4 mg Q4H PRN PO PAIN Last administered on 14:48; Admin Dose 4 MG; Start 03/12/17 at 11:00 Sodium Hypochlorite (Dakin'S (1/4 Strength)) 1 applic DAILY IRR Last administered on 03/19/17 09:24; Admin Dose 1 APPLIC; Start 03/12/17 at 15:00 Ondansetron HCl (Zofran Inj) 4 mg Q6H PRN IV NAUSEA AND/OR VOMITING; Start at 10:00 Docusate Sodium (Colace) 100 mg BID PO ; Start 03/15/17 at 21:00 Bisacodyl (Dulcolax) 5 mg DAILY PRN PO CONSTIPATION; Start 03/15/17 at 18:00 Nystatin (Nystatin Powder) 1 applic BID TOP Last administered on 03/19/17 09: 40; Admin Dose 1 APPLIC; Start 03/18/17 at 21:00 IV Flush (NS 10 ml) 10 ml PRN PRN IV IV PROTOCOL; Start 03/19/17 at 12:00 PAT RODRIGUEZ NP Mar 19, 2017 15:21
[2017-03-19 15:27] LABS: BASOPHIL # 0.1 10^3/ul (0.0-0.1); BASOPHILS % 0.4 % (0.0-2.0); EOSINOPHILS # 0.7 10^3/ul (0.0-0.5); EOSINOPHILS % 6.1 % (0.0-7.0); HEMATOCRIT 39.7 % (42.0-52.0); HEMOGLOBIN 12.4 g/dl (14.0-18.0); LYMPHOCYTES # 3.6 10^3/ul (0.8-2.9); LYMPHOCYTES % 31.9 % (15.0-51.0); MEAN CORPUSCULAR HEMOGLOBIN 27.1 pg (29.0-33.0); MEAN CORPUSCULAR HGB CONC 31.2 g/dl (32.0-37.0); MEAN CORPUSCULAR VOLUME 86.9 fl (82.0-101.0); MEAN PLATELET VOLUME 9.2 fl (7.4-10.4); MONOCYTE # 1.1 10^3/ul (0.3-0.9); NEUTROPHIL # 5.7 10^3/ul (1.6-7.5); NEUTROPHILS % 50.2 % (39.0-77.0); PLATELET COUNT 447 10^3/UL (140-415); RED BLOOD COUNT 4.57 10^6/ul (4.70-6.10); RED CELL DISTRIBUTION WIDTH 15.1 % (11.5-14.5); WHITE BLOOD COUNT 11.3 10^3/ul (4.8-10.8)
[2017-03-19 15:28] LABS: CALCIUM 8.9 mg/dl (8.4-10.2); CREATININE 0.72 mg/dl (0.61-1.24); POTASSIUM 4.5 mmol/L (3.5-5.1)
--- NOTE | 2017-03-19 16:13 | PN ---
Date/Time of Note Date/Time of Note DATE: 03/19/17 TIME: 16:12 Assessment/Plan VTE Prophylaxis VTE Prophylaxis Intervention: SCD's Lines/Catheters IV [facility] PICC Line Central line still needed: Yes Urinary Cath still in place: No Assessment/Plan Chief Complaint/Hosp Course Patient status post PICC line insertion today, management to arrange for home health IV antibiotics for 6 weeks per infectious disease recommendations. Assessment/Plan -Right lower extremity cellulitis with right malleolus wound, wound care consult evaluation. Dr. Keenan is following podiatry consultation. Dr. Galvan is following in infection disease consultation. Right foot MRI revealed osteomyelitis. -E. coli UTI -Systemic inflammatory response syndrome secondary to right foot soft tissue infection. -History of spina bifida with quadriplegia. -History of hydrocephalus status post DRIVER ENGINEER shunt. -Medical noncompliance Further recommendations based on clinical course. Plan of care discussed with Dr. Huynh Problems: Exam/Review of Systems Vital Signs Vitals Vital Signs Date Time Temp Pulse Resp B/P Pulse Ox O2 Delivery O2 Flow Rate FiO2 03/19/17 14:00 98.0 68 18 102/58 97 Intake and Output 03/18/17 03/18/17 03/19/17 15:00 23:00 07:00 Intake Total 50 ml 1240 ml 480 ml Balance 50 ml 1240 ml 480 ml Exam Constitutional: alert, oriented Respiratory: normal air movement Cardiovascular: nl pulses Gastrointestinal: non-tender, soft Musculoskeletal: muscle weakness Extremities: other (Right foot wound) Results Result Diagram: 03/19/17 1437 03/19/17 1437 Results 24 hrs Laboratory Tests Test 03/19/17 14:37 White Blood Count 11.3 H Red Blood Count 4.57 L Hemoglobin 12.4 L Hematocrit 39.7 L Mean Corpuscular Volume 86.9 Mean Corpuscular Hemoglobin 27.1 L Mean Corpuscular Hemoglobin Concent 31.2 L Red Cell Distribution Width 15.1 H Platelet Count 447 H Mean Platelet Volume 9.2 Neutrophils % 50.2 Lymphocytes % 31.9 Monocytes % 10.0 Eosinophils % 6.1 Basophils % 0.4 Nucleated Red Blood Cells % 0.0 Neutrophils # 5.7 Lymphocytes # 3.6 H Monocytes # 1.1 H Eosinophils # 0.7 H Basophils # 0.1 Nucleated Red Blood Cells # 0.0 Sodium Level 142 Potassium Level 4.5 Chloride Level 106 Carbon Dioxide Level 25 Anion Gap 16 Blood Urea Nitrogen 32 H Creatinine 0.72 Glucose Level 85 Calcium Level 8.9 Medications Medications Current Medications Enoxaparin Sodium (Lovenox) 40 mg QAM SC ; Start 03/11/17 at 09:00 Acetaminophen/ Hydrocodone Bitart 1 tab 1 tab Q4H PRN NGT PAIN LEVEL 1-3 Last administered on 03/15/17 08:57; Admin Dose 1 TAB; Start 03/10/17 at 23:00 Cefepime HCl (Maxipime 1gm/50 ml (Pmx)) 50 ml @ 100 mls/hr Q12 IVPB Last administered on 03/19/17 09:40; Admin Dose 100 MLS/HR; Start 03/11/17 at 09: 00 Collagenase (Santyl) 1 applic DAILY TOP Last administered on 03/19/17 09:40; Admin Dose 1 APPLIC; Start 03/12/17 at 09:00 Collagenase (Santyl) 1 applic PRN PRN TOP SOILING Last administered on 23:15; Admin Dose 1 APPLIC; Start 03/11/17 at 23:30 Hydromorphone HCl (Dilaudid) 4 mg Q4H PRN PO PAIN Last administered on 14:48; Admin Dose 4 MG; Start 03/12/17 at 11:00 Sodium Hypochlorite (Dakin'S (1/4 Strength)) 1 applic DAILY IRR Last administered on 03/19/17 09:24; Admin Dose 1 APPLIC; Start 03/12/17 at 15:00 Ondansetron HCl (Zofran Inj) 4 mg Q6H PRN IV NAUSEA AND/OR VOMITING; Start at 10:00 Docusate Sodium (Colace) 100 mg BID PO ; Start 03/15/17 at 21:00 Bisacodyl (Dulcolax) 5 mg DAILY PRN PO CONSTIPATION; Start 03/15/17 at 18:00 Nystatin (Nystatin Powder) 1 applic BID TOP Last administered on 03/19/17 09: 40; Admin Dose 1 APPLIC; Start 03/18/17 at 21:00 IV Flush (NS 10 ml) 10 ml PRN PRN IV IV PROTOCOL; Start 03/19/17 at 12:00 BLADIMIR BROWER Mar 19, 2017 16:13
[2017-03-19 19:50] VITALS: BP 128/77; RESP 20
[2017-03-20 02:12] VITALS: BP 120/75; RESP 20
[2017-03-20] MEDS: HYDROmorphONE 2 MG TAB PO PRN ×2 (06:02→19:34)
[2017-03-20 07:56] VITALS: BP 136/68; RESP 18
[2017-03-20] MEDS: DOCUSATE SODIUM 100 MG CAP PO SCH (09:00)
[2017-03-20] MEDS: ENOXAPARIN 40 MG/0.4 ML SYG SC SCH (09:00)
[2017-03-20] MEDS: SODIUM HYPOCHLORITE 0.125% 473 ML BTL IRR SCH (09:01)
[2017-03-20] MEDS: COLLAGENASE 30 GM TUBE TOP SCH (09:01)
[2017-03-20] MEDS: NYSTATIN 30 GM POWDER BTL TOP SCH (09:01)
[2017-03-20] MEDS: CEFEPIME 1GM/50 ML IVPB SCH ×2 (09:10→19:34)
--- NOTE | 2017-03-20 11:32 | PN ---
Date/Time of Note Date/Time of Note DATE: 03/20/17 TIME: 11:29 Assessment/Plan VTE Prophylaxis VTE Prophylaxis Intervention: other Lines/Catheters [facility] PICC Line Central line still needed: Yes Urinary Cath still in place: No Assessment/Plan Assessment/Plan -Right lower extremity cellulitis with right malleolus wound, wound care consult evaluation. Dr. Keenan is following podiatry consultation. Dr. Galvan is following in infection disease consultation. Right foot MRI revealed osteomyelitis. -E. coli UTI -Systemic inflammatory response syndrome secondary to right foot soft tissue infection. -History of spina bifida with quadriplegia. 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 -Medical noncompliance Anticipate discharge home with HH- when ready by business case analyst, per ID- continue abx for 6 weeks, Podiatry rec-s Further recommendations based on clinical course. Plan of care discussed with Dr. Huynh Subjective 24 Hr Interval Summary Free Text/Dictation - nad -sp PICC line insertion yesterday - management to arrange for home health IV antibiotics for 6 weeks per infectious disease recommendations. - no events reported overnight Constitutional: improved Respiratory: no complaints Cardiovascular: no complaints, orthopenea Gastrointestinal: no complaints Genitourinary: no complaints Exam/Review of Systems Vital Signs Vitals Vital Signs Date Time Temp Pulse Resp B/P Pulse Ox O2 Delivery O2 Flow Rate FiO2 03/20/17 07:56 98.4 84 18 136/68 97 Intake and Output 03/19/17 03/19/17 03/20/17 15:00 23:00 07:00 Intake Total 50 ml 1670 ml Balance 50 ml 1670 ml Exam Constitutional: alert Respiratory: clear to auscultation, diminished breath sounds Cardiovascular: nl pulses, other (S1S2) Gastrointestinal: non-tender, other, soft Musculoskeletal: nl extremities to inspection Extremities: normal pulses Neurological: other Results Result Diagram: 03/19/17 1437 03/19/17 1437 Results 24 hrs Laboratory Tests Test 03/19/17 14:37 White Blood Count 11.3 H Red Blood Count 4.57 L Hemoglobin 12.4 L Hematocrit 39.7 L Mean Corpuscular Volume 86.9 Mean Corpuscular Hemoglobin 27.1 L Mean Corpuscular Hemoglobin Concent 31.2 L Red Cell Distribution Width 15.1 H Platelet Count 447 H Mean Platelet Volume 9.2 Neutrophils % 50.2 Lymphocytes % 31.9 Monocytes % 10.0 Eosinophils % 6.1 Basophils % 0.4 Nucleated Red Blood Cells % 0.0 Neutrophils # 5.7 Lymphocytes # 3.6 H Monocytes # 1.1 H Eosinophils # 0.7 H Basophils # 0.1 Nucleated Red Blood Cells # 0.0 Sodium Level 142 Potassium Level 4.5 Chloride Level 106 Carbon Dioxide Level 25 Anion Gap 16 Blood Urea Nitrogen 32 H Creatinine 0.72 Glucose Level 85 Calcium Level 8.9 Medications Medications Current Medications Enoxaparin Sodium (Lovenox) 40 mg QAM SC ; Start 03/11/17 at 09:00 Acetaminophen/ Hydrocodone Bitart 1 tab 1 tab Q4H PRN NGT PAIN LEVEL 1-3 Last administered on 03/15/17 08:57; Admin Dose 1 TAB; Start 03/10/17 at 23:00 Cefepime HCl (Maxipime 1gm/50 ml (Pmx)) 50 ml @ 100 mls/hr Q12 IVPB Last administered on 03/20/17 09:10; Admin Dose 100 MLS/HR; Start 03/11/17 at 09: 00 Collagenase (Santyl) 1 applic DAILY TOP Last administered on 03/20/17 09:01; Admin Dose 1 APPLIC; Start 03/12/17 at 09:00 Collagenase (Santyl) 1 applic PRN PRN TOP SOILING Last administered on 23:15; Admin Dose 1 APPLIC; Start 03/11/17 at 23:30 Hydromorphone HCl (Dilaudid) 4 mg Q4H PRN PO PAIN Last administered on 06:02; Admin Dose 4 MG; Start 03/12/17 at 11:00 Sodium Hypochlorite (Dakin'S (1/4 Strength)) 1 applic DAILY IRR Last administered on 03/20/17 09:01; Admin Dose 1 APPLIC; Start 03/12/17 at 15:00 Ondansetron HCl (Zofran Inj) 4 mg Q6H PRN IV NAUSEA AND/OR VOMITING; Start at 10:00 Docusate Sodium (Colace) 100 mg BID PO ; Start 03/15/17 at 21:00 Bisacodyl (Dulcolax) 5 mg DAILY PRN PO CONSTIPATION; Start 03/15/17 at 18:00 Nystatin (Nystatin Powder) 1 applic BID TOP Last administered on 03/20/17t 09: 01; Admin Dose 1 APPLIC; Start 03/18/17 at 21:00 IV Flush (NS 10 ml) 10 ml PRN PRN IV IV PROTOCOL; Start 03/19/17 at 12:00 JOSEPHINE CRAWFORD Mar 20, 2017 11:32
[2017-03-20] MEDS ORDERED: LORAZEPAM 0.5 MG TAB PO ONE (13:30)
--- NOTE | 2017-03-20 14:05 | CONS ---
Date/Time of Note Date/Time of Note DATE: 03/20/17 TIME: 14:04 Assessment/Plan Assessment/Plan Chief Complaint/Hosp Course SUBJECTIVE: No acute changes. Alert lying comfortably in bed denies pain MICROBIOLOGY: Right ankle wound culture growing E. coli, strep, oxacillin sensitive staph aureus and Proteus mirabilis. Urine culture growing E. coli. ANTIMICROBIALS: Cefepime. ALLERGIES: ZOSYN. PHYSICAL EXAMINATION: GENERAL: This is an obese, well-developed, chronically ill-appearing, middle- aged man who is in no distress. HEENT: Head atraumatic, normocephalic. Sclerae anicteric. Buccal mucosa dry. NECK: Supple. CHEST: Rise symmetrical. Breath sounds clear. HEART: S1, S2. ABDOMEN: Soft. Bowel tones present. ASSESSMENT: 1. Recurrent urinary tract infection. 2. Right lower extremity chronic wound with acute osteomyelitis. 3. Morbid obesity. 4. History of spina bifida and incomplete paraplegia. PLAN: The patient remains stable. Pending placement, continue abx for 6 weeks , s/p PICC. Podiatry rec-s [facility] staff Problems: Consultation Date/Type/Reason Admit Date/Time Mar 10, 2017 at 22:16 Initial Consult Date 03/11/17 Type of Consultation: ID Exam/Review of Systems Vital Signs Vitals Vital Signs Date Time Temp Pulse Resp B/P Pulse Ox O2 Delivery O2 Flow Rate FiO2 03/20/17 07:56 98.4 84 18 136/68 97 Intake and Output 03/19/17 03/19/17 03/20/17 15:00 23:00 07:00 Intake Total 50 ml 1670 ml Balance 50 ml 1670 ml Results Result Diagram: 03/19/17 1437 03/19/17 1437 Results 24 hrs Laboratory Tests Test 03/19/17 14:37 White Blood Count 11.3 H Red Blood Count 4.57 L Hemoglobin 12.4 L Hematocrit 39.7 L Mean Corpuscular Volume 86.9 Mean Corpuscular Hemoglobin 27.1 L Mean Corpuscular Hemoglobin Concent 31.2 L Red Cell Distribution Width 15.1 H Platelet Count 447 H Mean Platelet Volume 9.2 Neutrophils % 50.2 Lymphocytes % 31.9 Monocytes % 10.0 Eosinophils % 6.1 Basophils % 0.4 Nucleated Red Blood Cells % 0.0 Neutrophils # 5.7 Lymphocytes # 3.6 H Monocytes # 1.1 H Eosinophils # 0.7 H Basophils # 0.1 Nucleated Red Blood Cells # 0.0 Sodium Level 142 Potassium Level 4.5 Chloride Level 106 Carbon Dioxide Level 25 Anion Gap 16 Blood Urea Nitrogen 32 H Creatinine 0.72 Glucose Level 85 Calcium Level 8.9 Medications Medications Current Medications Enoxaparin Sodium (Lovenox) 40 mg QAM SC ; Start 03/11/17 at 09:00 Acetaminophen/ Hydrocodone Bitart 1 tab 1 tab Q4H PRN NGT PAIN LEVEL 1-3 Last administered on 03/15/17 08:57; Admin Dose 1 TAB; Start 03/10/17 at 23:00 Cefepime HCl (Maxipime 1gm/50 ml (Pmx)) 50 ml @ 100 mls/hr Q12 IVPB Last administered on 03/20/17 09:10; Admin Dose 100 MLS/HR; Start 03/11/17 at 09: 00 Collagenase (Santyl) 1 applic DAILY TOP Last administered on 03/20/17 09:01; Admin Dose 1 APPLIC; Start 03/12/17 at 09:00 Collagenase (Santyl) 1 applic PRN PRN TOP SOILING Last administered on 23:15; Admin Dose 1 APPLIC; Start 03/11/17 at 23:30 Hydromorphone HCl (Dilaudid) 4 mg Q4H PRN PO PAIN Last administered on 06:02; Admin Dose 4 MG; Start 03/12/17 at 11:00 Sodium Hypochlorite (Dakin'S (1/4 Strength)) 1 applic DAILY IRR Last administered on 03/20/17 09:01; Admin Dose 1 APPLIC; Start 03/12/17 at 15:00 Ondansetron HCl (Zofran Inj) 4 mg Q6H PRN IV NAUSEA AND/OR VOMITING; Start at 10:00 Docusate Sodium (Colace) 100 mg BID PO ; Start 03/15/17 at 21:00 Bisacodyl (Dulcolax) 5 mg DAILY PRN PO CONSTIPATION; Start 03/15/17 at 18:00 Nystatin (Nystatin Powder) 1 applic BID TOP Last administered on 03/20/17 09: 01; Admin Dose 1 APPLIC; Start 03/18/17 at 21:00 IV Flush (NS 10 ml) 10 ml PRN PRN IV IV PROTOCOL; Start 03/19/17 at 12:00 PAT RODRIGUEZ NP Mar 20, 2017 14:05
[2017-03-20 14:12] VITALS: BP 130/71; RESP 16
[2017-03-20 16:19] LABS: CALCIUM 9.2 mg/dl (8.4-10.2); CREATININE 0.67 mg/dl (0.61-1.24); POTASSIUM 4.4 mmol/L (3.5-5.1)
--- NOTE | 2017-03-20 16:21 | DS ---
Date/Time of Note Date/Time of Note DATE: 03/20/17 TIME: 16:20 Discharge Summary Admission/Discharge Info Admit Date/Time Mar 10, 2017 at 22:16 Discharge Date/Time Discharge Diagnosis -Right lower extremity cellulitis with right malleolus wound, wound care consult evaluation. Dr. Keenan is following podiatry consultation. Dr. Galvan is following in infection disease consultation. Right foot MRI revealed osteomyelitis. -E. coli UTI -Systemic inflammatory response syndrome secondary to right foot soft tissue infection. -History of spina bifida with quadriplegia. 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 -Medical noncompliance Plan of care discussed with Dr. Huynh Patient Condition: Stable Hospital Course The patient is a 27-year-old male with past history of spina bifida with quadriplegia using wheelchair; hydrocephalus , status post HANDS ASSEMBLER shunt surgery many years ago. Patient has a chronic right malleolus wound and supposed to follow-up in amputation prevention center. Patient was admitted with c/o of fever, swelling , pain, and purulent drainage from right foot wound x couple days. Patient was admitted for further evaluation and management. Patient got transferred SNF in a stable condition Home Meds Active Scripts Hydrocodone/Acetaminophen ([place] 5-325 Tablet) 1 Each Tablet, 1 TAB PO Q6H Y for PAIN, #7 TAB Prov:CAREY,KELLY 03/03/17 Collagenase* (Santyl*) 30 Gm Oint..gm., 1 APPLIC TOP DAILY for 14 Days Prov:KALEB BROWERLANA 01/31/17 Hydrocodone Bit-Acetaminophen (Hydrocodone Bit-APAP) 5-325MG Tablet, 1 TAB PO Q4H Y for PAIN, #30 TAB Prov:RAJINDER BROWERA 01/31/17 Discontinued Scripts Clindamycin Hcl* (Clindamycin Hcl*) 300 Mg Capsule, 300 MG PO Q6 for 10 Days, # 40 CAP Prov:CAREY,KELLY 03/03/17 Clindamycin Hcl* (Clindamycin Hcl*) 300 Mg Capsule, 300 MG PO Q6 for 10 Days, # 40 CAP Prov:CAREY,KELLY 02/27/17 Primary Care Provider [facility] Time spent on discharge: < 30 minutes JOSEPHINE CRAWFORD Mar 20, 2017 16:21
[2017-03-20 20:19] VITALS: BP 137/73; RESP 17
== END 2017-03-20 21:30 | disposition home health service (06) | DRG 872 ==
LOC: FTE 15:15 → PP2 22:16
PROVIDERS: ADMIT Internal Medicine; ATTEND Internal Medicine
PROC: 02HV33Z Insertion of Infusion Device into Superior Vena Cava, Percutaneous Approach (ICD-10-PCS; principal; 2017-03-19)
DX: A41.9 Sepsis, unspecified organism (principal); G82.22 Paraplegia, incomplete; L97.314 Non-pressure chronic ulcer of right ankle with necrosis of bone; M86.171 Other acute osteomyelitis, right ankle and foot; L03.115 Cellulitis of right lower limb; N39.0 Urinary tract infection, site not specified; Z68.41 Body mass index [BMI] 40.0-44.9, adult; Q05.4 Unspecified spina bifida with hydrocephalus; I73.9 Peripheral vascular disease, unspecified; G62.9 Polyneuropathy, unspecified; F17.210 Nicotine dependence, cigarettes, uncomplicated; Z98.2 Presence of cerebrospinal fluid drainage device; B96.20 Unspecified Escherichia coli [E. coli] as the cause of diseases classified elsewhere; E66.01 Morbid (severe) obesity due to excess calories; Z99.3 Dependence on wheelchair; Z91.19 Patient's noncompliance with other medical treatment and regimen
CPT/HCPCS: 36415; 36569; 71010; 73590; 73718; 76937; 80048; 80053; 80307; 83605; 85025; 85610; 85730; 87040; 87070; 87086; 96374; 96375; 96376; C1769; J0692; J1170; J1650; J2270; J2405; J3370; J7030

== ENCOUNTER 2017-04-25 11:17 | Emergency (ER) | END 2017-04-25 18:30 | disposition home or self-care (01) ==

== ENCOUNTER 2017-04-28 10:18 | Emergency (ER) | END 2017-04-28 18:04 | disposition home or self-care (01) ==

== ENCOUNTER 2017-05-03 21:55 | Inpatient (IN) | END 2017-05-19 20:37 | disposition home health service (06) | DRG 579 ==

== ENCOUNTER 2017-06-12 12:49 | Emergency (ER) | END 2017-06-12 19:51 | disposition home or self-care (01) ==

== ENCOUNTER 2017-06-16 14:22 | Emergency (ER) | END 2017-06-16 17:15 | disposition home or self-care (01) ==

== ENCOUNTER 2017-06-27 14:25 | Emergency (ER) | END 2017-06-27 19:01 | disposition home or self-care (01) ==

== ENCOUNTER 2017-07-08 13:26 | Emergency (ER) | END 2017-07-08 16:50 | disposition home or self-care (01) ==

== ENCOUNTER 2017-07-18 12:19 | Emergency (ER) | END 2017-07-18 13:55 | disposition home or self-care (01) ==

== ENCOUNTER 2017-08-03 11:33 | Emergency (ER) | END 2017-08-03 14:47 | disposition left against medical advice (07) ==

== ENCOUNTER 2017-08-08 11:46 | Emergency (ER) | END 2017-08-08 15:15 | disposition home or self-care (01) ==

== ENCOUNTER 2017-08-15 09:57 | Emergency (ER) | END 2017-08-15 13:22 | disposition home or self-care (01) ==

== ENCOUNTER 2017-08-19 21:53 | Inpatient (IN) | END 2017-08-26 17:50 | disposition home or self-care (01) | DRG 689 ==

== ENCOUNTER 2017-09-23 13:08 | Emergency (ER) | END 2017-09-23 15:53 | disposition home or self-care (01) ==

== ENCOUNTER 2017-10-22 18:44 | Inpatient (IN) | END 2017-11-03 19:26 | disposition home health service (06) | DRG 463 ==

== ENCOUNTER 2017-12-10 12:25 | Emergency (ER) | END 2017-12-10 13:47 | disposition home or self-care (01) ==

== ENCOUNTER 2017-12-15 13:31 | Emergency (ER) | END 2017-12-15 16:24 | disposition home or self-care (01) ==

== ENCOUNTER 2017-12-26 21:53 | Inpatient (IN) | END 2018-01-05 17:10 | disposition home or self-care (01) | DRG 314 ==

== ENCOUNTER 2018-01-28 13:35 | Emergency (ER) | END 2018-01-28 16:22 | disposition home or self-care (01) ==

== ENCOUNTER 2018-01-30 13:13 | Emergency (ER) | END 2018-01-30 16:27 | disposition home or self-care (01) ==

== ENCOUNTER 2018-02-03 21:51 | Inpatient (IN) | END 2018-02-06 16:05 | disposition home health service (06) | DRG 603 ==

== ENCOUNTER 2018-02-24 18:41 | Inpatient (IN) | END 2018-03-04 15:45 | disposition home health service (06) | DRG 602 ==

== ENCOUNTER 2018-03-17 20:49 | Emergency (ER) | payer OTHER ==
[~2018-03-17] VITALS: Wt 99.0 kg
[~2018-03-17 20:49] MED LIST changes: +ACET325T33 PO; -CLIN-73 PO; +DOXY100T2 PO; -HYDR-3498 PO; -HYDR-906 PO; +LACT1CAP28 PO; -SAN30GM TOP
[2018-03-17] MEDS ORDERED: morphine 4 MG/ML VIAL IV STA (22:15)
[2018-03-17] MEDS ORDERED: SOD CHLORIDE 0.9% 1,000 ML IV STA (22:15)
--- NOTE | 2018-03-18 00:06 | ERD ---
ER Documentation Chief Complaint Chief Complaint RETURN FOR DYSURIA, ANTIBIOTICS NOT WORKING HPI Patient is a 28-year-old male with past medical history of osteomyelitis, spina bifida, presenting to the emergency department complaining of dysuria for the past 5 days. The patient has also had 8/10, constant, right flank pain for the past 5 days. He reports multiple visits to this emergency department in the past with multiple admissions to the hospital. He denies any fevers or abdominal pain or nausea or vomiting or diarrhea. He denies any other symptoms at this time. ROS All systems reviewed and are negative except as per history of present illness. Medications Home Meds Active Scripts Doxycycline Hyclate* (Doxycycline Hyclate*) 100 Mg Tablet.dr, 100 MG PO BID for 10 Days, TAB Prov:MATEO THURMAN PA-C 03/18/18 Lactobacillus Rhamnosus GG (Culturelle) 1 Each Capsule, 1 CAP PO BID for 30 Days, CAP otc Prov:CHRIS TOPETE MD 03/04/18 Acetaminophen* (Tylenol*) 325 Mg Tablet, 650 MG PO Q6H PRN for PAIN LEVEL 1-3 OR FEVER for 1 Day, TAB Prov:CHRIS TOPETE MD 03/04/18 Doxycycline* (Vibramycin*) 100 Mg Tab, 100 MG PO BID for 14 Days, #30 TAB Prov:CHRIS TOPETE MD 03/04/18 Allergies Allergies: Coded Allergies: latex (Unverified Allergy, Intermediate, RASH, 02/24/18) ketorolac (Unverified Allergy, Mild, RASH, 02/24/18) papaya (Unverified Allergy, Mild, 02/24/18) piperacillin (Unverified Allergy, Mild, 02/24/18) tazobactam (Unverified Allergy, Mild, 02/24/18) acetaminophen (Unverified Allergy, Unknown, RASH, 02/24/18) ibuprofen (Unverified Allergy, Unknown, LIP SWELLING, STATED THROAT IS CLOSING, 02/24/18) PMhx/Soc History of Surgery: Yes (2016- [employer] ASS[employer] shunt; RT ankle surgery; Gallbladder removal; Knee I&D abscess) Anesthesia Reaction: No Hx Neurological Disorder: Yes (spina bifida) Hx Respiratory Disorders: No Hx Cardiac Disorders: Yes (high blood pressure) Hx Psychiatric Problems: Yes (psychosis 2009) Hx Miscellaneous Medical Probl: No Hx Alcohol Use: No Hx Substance Use: Yes (marijuana, 1 joint, 02/23/18) Hx Tobacco Use: No Smoking Status: Current every day smoker FmHx Family History: diabetes Physical Exam Vitals Vital Signs Date Temp Pulse Resp B/P (MAP) Pulse Ox O2 O2 Flow FiO2 Time Delivery Rate 03/18/18 99.6 89 20 125/80 99 Room Air 01:43 (95) 03/17/18 99.4 82 16 135/76 98 21:22 (95) Physical Exam Const: No acute distress Head: Atraumatic Eyes: Normal Conjunctiva ENT: Normal External Ears, Nose and Mouth. Neck: Full range of motion. No meningismus. Resp: Clear to auscultation bilaterally Cardio: Regular rate and rhythm, no murmurs Abd: Soft, non tender, non distended. Normal bowel sounds. No rebound tenderness or guarding. No McBurney's point tenderness. Skin: No petechiae or rashes Back: Right-sided flank tenderness to palpation. No CVA tenderness noted. Ext: No cyanosis, or edema Neur: Awake and alert Psych: Normal Mood and Affect Result Diagram: 03/17/18225703/17/182258 Results 24 hrs Laboratory Tests Test 03/17/18 00:47 03/17/18 22:58 03/17/18 22:59 Urine Color YELLOW Urine Clarity TURBID Urine pH 6.0 Urine Specific [place] 1.017 Urine Ketones NEGATIVE mg/dL Urine Nitrite POSITIVE mg/dL Urine Bilirubin NEGATIVE mg/dL Urine Urobilinogen NEGATIVE mg/dL Urine Leukocyte Esterase 3+ Karuna/ul Urine Microscopic RBC 15 /HPF Urine Microscopic WBC > 182 /HPF Urine Squamous Epithelial Cells FEW /HPF Urine Transitional FEW /HPF Epithelial Cells Urine Amorphous Crystals FEW /HPF Urine Bacteria FEW /HPF Urine Mucus FEW /HPF Urine Hemoglobin 1+ mg/dL Urine Glucose NEGATIVE mg/dL Urine Total Protein 1+ mg/dl White Blood Count 11.9 10^3/ul Red Blood Count 4.90 10^6/ul Hemoglobin 13.8 g/dl Hematocrit 43.0 % Mean Corpuscular Volume 87.8 fl Mean Corpuscular Hemoglobin 28.2 pg Mean Corpuscular 32.1 g/dl Hemoglobin Concent Red Cell Distribution Width 13.5 % Platelet Count 394 10^3/UL Mean Platelet Volume 9.4 fl Immature Granulocytes % 0.300 % Neutrophils % 55.6 % Lymphocytes % 29.0 % Monocytes % 9.6 % Eosinophils % 5.2 % Basophils % 0.3 % Nucleated Red Blood Cells % 0.0 /100WBC Immature Granulocytes # 0.040 10^3/ul Neutrophils # 6.6 10^3/ul Lymphocytes # 3.5 10^3/ul Monocytes # 1.1 10^3/ul Eosinophils # 0.6 10^3/ul Basophils # 0.0 10^3/ul Nucleated Red Blood Cells # 0.0 10^3/ul Prothrombin Time 13.2 Sec Prothrombin Time Ratio 1.0 INR International 0.99 Normalized Ratio Activated Partial Thromboplast 34.9 Sec Time Sodium Level 145 mmol/L Potassium Level 3.4 mmol/L Chloride Level 109 mmol/L Carbon Dioxide Level 23 mmol/L Anion Gap 13 Blood Urea Nitrogen 15 mg/dl Creatinine 0.51 mg/dl Est Glomerular Filtrat > 60 mL/min Rate mL/min Glucose Level 101 mg/dl Lactic Acid Level 1.5 mmol/L Calcium Level 9.1 mg/dl Total Bilirubin 0.4 mg/dl Direct Bilirubin 0.00 mg/dl Indirect Bilirubin 0.4 mg/dl Aspartate Amino 17 IU/L Transf (AST/SGOT) Alanine 15 IU/L Aminotransferase (ALT/SGPT) Alkaline Phosphatase 126 IU/L Total Protein 8.4 g/dl Albumin 4.0 g/dl Globulin 4.40 g/dl Albumin/Globulin Ratio 0.90 Lipase 475 U/L Current Medications Medications Dose Sig/Evaristo Start Time Status Last (Trade) Ordered Route PRN Stop Time Admin Dose Reason Admin Sodium 1,000 ml @ Q1H STAT 03/17/18 DC 03/17/18 Chloride 1,000 mls/hr IV 22:15 22:56 03/17/18 23:14 Morphine 4 mg ONCE STAT 03/17/18 DC 03/17/18 Sulfate IV 22:15 22:56 (morphine) 03/17/18 22:18 [place] [id number] Radiology Main Line: [phone] DIAGNOSTIC IMAGING REPORT Patient: RUTH REDD : 1990 Age: 28 Sex: M MR #: [id number] DOS: 03/17/18 2215 Ordering MD: MATEO THURMAN PA-C [facility] Room/Bed: PROCEDURE: CT abdomen and pelvis without contrast. CLINICAL INDICATION: Abdominal pain. TECHNIQUE: CT scan of the abdomen and pelvis without contrast was performed. Sagittal and coronal reformatted images were obtained from the axial source images. DICOM images are available. One or more of the following dose reduction techniques were used: Automated exposure control, adjustment of the mA and/or kV according to patient size, use of iterative reconstruction technique. CTDI = 19.32 mGy; DLP = 1347.46 mGy-cm COMPARISON: 06/27/2017 FINDINGS: Visualized lower thorax: The lung bases are clear of acute infiltrates, mild scarring of the posterior right lower lobe is present. There is mild right pleural thickening and curvilinear hyperdense foci in the posterior right pleural space seen previously is suggestive of a pleural catheter. There is no evidence for pleural effusion. Liver, gallbladder, pancreas and spleen: Diffuse low attenuation of the liver is compatible with hepatic steatosis with preserved liver size and contour . There is no evidence for a liver mass or ductal dilatation. Cholecystectomy clips are present. No common bile duct abnormality is demonstrated. The pancreas is unremarkable. The spleen is normal in size. Adrenal glands and genitourinary system: The adrenal glands are normal b ilaterally. The kidneys are normal and size, contour and attenuation with no evidence for masses, calculi or hydronephrosis. The ureters are unremarkable. Lobulated irregular contour of the urinary bladder has the appearance of a neurogenic bladder with mild bladder wall thickening unable to exclude cystitis, the surrounding fat appears preserved. Prostate gland is normal in size. The scrotum shows no gross abnormality. Gastrointestinal system: The stomach is normal in caliber with no abnormality of significance. The small bowel is normal in caliber with no ileus, obstruction or wall thickening. The appendix and surrounding fat are within the limits of normal. The colon shows no evidence for wall thickening or acute abnormality. There is no evidence for colitis or diverticulitis. Changes of partial distal colonic resection anastomosis are again demonstrated in the left lower quadrant. Peritoneum, retroperitoneum, lymph nodes and vessels: The abdominal aorta is normal in caliber. There is no evidence for atherosclerotic calcification. The inferior vena cava is unremarkable. There is no evidence for adenopathy or mass. There is no ascites. No pneumoperitoneum is present. Intraperitoneal catheters are again demonstrated possibly shunt tubing, the distal tip of the le ft-sided shunt tube in the left lower quadrant adjacent to the descending colon. The distal tip of the right-sided tubing is seen in the right lower quadrant adjacent to the right urinary bladder dome. 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 There is no evidence of osteomyelitis or periostitis. Severe paraspinal and gluteal muscle atrophy greater on the right is again noted with the visualized thigh muscles showing severe atrophy on the right. In the left gluteal fat there is skin thickening and induration stranding of the subcutaneous tissues concerning for decubitus ulceration and chronic cellulitis. There is no organized collection to suggest an abscess. RPTAT:HJJR IMPRESSION: 1. Compared to the prior study of 06/27/2017, there has been Gonzalez catheter franky leyda with thickening of the irregularly marginated urinary bladder unable to exclude cystitis superimposed upon the neurogenic bladder pattern. 2. Changes of spinal dysraphism with associated presumed surgery are again noted, diffuse paraspinal and right greater than left gluteal as well as the thigh muscle atrophy again noted. 3. Skin thickening and probable cellulitis in the gluteal regions bilaterally with a suspected decubitus ulcer but no evidence of abscess, acute osteomyelitis or periostitis. 4. Hepatic steatosis is again demonstrated. 5. Intraperitoneal shunt tubing is again seen. 6. Stable small supraumbilical ventral fat-containing hernia without incarceration. 7. Cholecystectomy clips are again seen. 8. Again demonstrated are catheters within the right posterior thorax. Physician Anai Date Time Electronically viewed and signed by Physician Anai on 03/17/2018 23:33 JR/ CC: MATEO THURMAN PA-C [phone] Procedures/MDM ER COURSE: Pleasant 28-year-old male presenting to the emergency department complaining of right flank pain. Patient was administered IV morphine and IV fluids in the department with good response. On reevaluation he was feeling improved. Patient remained hemodynamically stable with no new complaints during his ED course. LABS: CBC: no e/o of systemic infection or severe anemia CMP: no e/o severe acidosis, alkalosis, renal failure, diabetic ketoacidosis, liver disease Lipase: no e/o pancreatitis Urine: no e/o acute infection or hematuria IMAGING: CT abdomen and pelvis without contrast showed multiple findings, the full report from the radiologist may be viewed above. MEDICAL DECISION MAKING: Patient symptoms are most consistent with persistent urinary tract infection. He will be discharged home with prescription for doxycycline as instructed by attending ED physician, Dr. Mateo Julian. He agreed with the diagnosis, plan, overall ED course. No obvious evidence of emergent or life threatening pathology. The patient agreed with the diagnosis, plan, need for follow-up, return precautions. Pt/family advised to return immediately with any new or worsening symptoms. Follow-up with primary care physician within the next 1-2 days. Disclaimer: Inadvertent spelling and grammatical errors are likely due to EHR/dictation software use and do not reflect on the overall quality of patient care. Also, please note that the electronic time recorded on this note does not necessarily reflect the actual time of the patient encounter. Departure Diagnosis: Primary Impression: Dysuria Condition: Fair MATEO THURMAN PA-C Mar 18, 2018 00:06
[2018-03-18] MEDS ORDERED: DOXY100T20 PO (01:12)
[2018-03-18 01:43] VITALS: BP 125/80; PULSE 89; RESP 20
[2018-05-12] MEDS ORDERED: LACHYD12 TOP (10:13)
[2018-05-12] MEDS ORDERED: RANI150T5 PO (10:13)
[2018-05-12] MEDS ORDERED: GABA300C16 PO (10:13)
[2018-05-12] MEDS ORDERED: BACL10TA PO (10:13)
[2018-05-12] MEDS ORDERED: MUPI22OI2 TOP (10:13)
[2018-05-12] MEDS ORDERED: CLO15CR1 TOP (10:13)
[2018-05-12] MEDS ORDERED: SAN30GM TOP (10:13)
== END 2018-03-18 01:45 | disposition home or self-care (01) ==
LOC: FTE 20:49
DX: R30.0 Dysuria (principal); F17.210 Nicotine dependence, cigarettes, uncomplicated; R10.9 Unspecified abdominal pain; Z91.040 Latex allergy status
CPT/HCPCS: 36415; 74176; 80053; 81001; 83605; 83690; 85025; 85610; 85730; 87086; 96374; J2270; J7030; Z7502

== ENCOUNTER 2018-04-10 14:13 | Emergency (ER) | payer OTHER ==
[~2018-04-10] VITALS: Wt 98.0 kg
[~2018-04-10 14:13] MED LIST changes: +DOXY100T20 PO
[2018-04-10] MEDS ORDERED: SOD CHLORIDE 0.9% 1,000 ML IV STA (17:29)
[2018-04-10] MEDS ORDERED: SODIUM CHLORIDE 0.9% 1L BAG IV* STA (17:29)
--- NOTE | 2018-04-10 17:45 | ERD ---
ER Documentation Chief Complaint Chief Complaint BLADDER PAIN, SORES ON BODY HURT, NAUSEA HPI This is a 28-year-old gentleman who is wheelchair dependent, history of spina bifida, chronic pain, chronic recurrent urinary tract infections. The patient presents with several days of chills, bladder pain and flank pain bilaterally. The patient was recently seen in February for bladder pain and started on doxycycline. He states only minimal relief. He denies any cough chest pain or shortness of breath. ROS All systems reviewed and are negative except as per history of present illness. Medications Home Meds Active Scripts Cefdinir (Cefdinir) 300 Mg Capsule, 300 MG PO BID for 10 Days, CAP Prov:JUAQUIN CAT MD 04/10/18 Reported Medications Phenazopyridine Hcl* (Phenazopyridine Hcl*) 200 Mg Tablet, 200 MG PO TID, TAB FOR 3 DAYS 04/10/18 Nitrofurantoin Monohyd Macrocr* (Macrobid*) 100 Mg Capsr, 100 MG PO BID, CAP FOR 10 DAYS 04/10/18 Discontinued Scripts Doxycycline Hyclate* (Doxycycline Hyclate*) 100 Mg Tablet.dr, 100 MG PO BID for 10 Days, TAB Prov:MAMTA THURMAN PA-C 03/18/18 Lactobacillus Rhamnosus GG (Culturelle) 1 Each Capsule, 1 CAP PO BID for 30 Days, CAP otc Prov:CHRIS TOPETE MD 03/04/18 Acetaminophen* (Tylenol*) 325 Mg Tablet, 650 MG PO Q6H PRN for PAIN LEVEL 1-3 OR FEVER for 1 Day, TAB Prov:CHRIS TOPETE MD 03/04/18 Doxycycline* (Vibramycin*) 100 Mg Tab, 100 MG PO BID for 14 Days, #30 TAB Prov:CHRIS TOPETE MD 03/04/18 Allergies Allergies: Coded Allergies: latex (Unverified Allergy, Intermediate, RASH, 04/10/18) ketorolac (Unverified Allergy, Mild, RASH, 04/10/18) papaya (Unverified Allergy, Mild, 04/10/18) piperacillin (Unverified Allergy, Mild, 04/10/18) tazobactam (Unverified Allergy, Mild, 04/10/18) acetaminophen (Unverified Allergy, Unknown, RASH, 04/10/18) ibuprofen (Unverified Allergy, Unknown, LIP SWELLING, STATED THROAT IS CLOSING, 02/24/18) PMhx/Soc History of Surgery: Yes (2016- [employer]ERMOM[employer]ER [employer] shunt; RT ankle surgery; Gallbladder removal; Knee I&D abscess) Anesthesia Reaction: No Hx Neurological Disorder: Yes (spina bifida) Hx Respiratory Disorders: No Hx Cardiac Disorders: Yes (high blood pressure) Hx Psychiatric Problems: Yes (psychosis 2008) Hx Miscellaneous Medical Probl: No Hx Alcohol Use: No Hx Substance Use: Yes (marijuana, 1 joint, 02/23/18) Hx Tobacco Use: No FmHx Family History: No diabetes Physical Exam Vitals Vital Signs Date Temp Pulse Resp B/P (MAP) Pulse Ox O2 O2 Flow FiO2 Time Delivery Rate 04/10/18 98.1 125 18 158/71 99 14:17 (100) Physical Exam General: Well developed, well nourished, no acute distress Head: Normocephalic, atraumatic. Eyes: Pupils equally reactive, EOM intact ENT: Moist mucous membranes Neck: Supple, no lymphadenopathy Respiratory: Lungs clear bilaterally, no distress Cardiovascular: RRR, no murmurs, rubs, or gallops Abdominal: Soft, non-tender, non-distended, no peritoneal signs Back: No significant CVAT : Deferred MSK: No edema, no unilateral swelling Neurologic: Alert and oriented, at neurologic baseline Skin: No rash Psych: Normal mood Result Diagram: 04/10/180 04/10/181849 Results 24 hrs Laboratory Tests Test 04/10/18 18:05 04/10/18 18:50 04/10/18 18:55 Urine Color LIZY Urine Clarity CLEAR Urine pH 5.0 Urine Specific [place] 1.017 Urine Ketones TRACE mg/dL Urine Nitrite POSITIVE mg/dL Urine Bilirubin NEGATIVE mg/dL Urine Urobilinogen 2+ mg/dL Urine Leukocyte Esterase NEGATIVE Karuna/ul Urine Microscopic RBC 12 /HPF Urine Microscopic WBC 36 /HPF Urine Squamous Epithelial Cells FEW /HPF Urine Mucus FEW /HPF Urine Hemoglobin 1+ mg/dL Urine Glucose NEGATIVE mg/dL Urine Total Protein 1+ mg/dl White Blood Count 11.6 10^3/ul Red Blood Count 5.39 10^6/ul Hemoglobin 15.3 g/dl Hematocrit 47.3 % Mean Corpuscular Volume 87.8 fl Mean Corpuscular Hemoglobin 28.4 pg Mean Corpuscular 32.3 g/dl Hemoglobin Concent Red Cell Distribution Width 14.0 % Platelet Count 358 10^3/UL Mean Platelet Volume 9.4 fl Immature Granulocytes % 0.300 % Neutrophils % 60.3 % Lymphocytes % 27.7 % Monocytes % 8.3 % Eosinophils % 3.1 % Basophils % 0.3 % Nucleated Red Blood Cells % 0.0 /100WBC Immature Granulocytes # 0.040 10^3/ul Neutrophils # 7.0 10^3/ul Lymphocytes # 3.2 10^3/ul Monocytes # 1.0 10^3/ul Eosinophils # 0.4 10^3/ul Basophils # 0.0 10^3/ul Nucleated Red Blood Cells # 0.0 10^3/ul Prothrombin Time 12.7 Sec Prothrombin Time Ratio 1.0 INR International 0.94 Normalized Ratio Activated Partial Thromboplast 32.7 Sec Time Sodium Level 140 mmol/L Potassium Level 3.8 mmol/L Chloride Level 105 mmol/L Carbon Dioxide Level 25 mmol/L Anion Gap 10 Blood Urea Nitrogen 13 mg/dl Creatinine 0.53 mg/dl Est Glomerular Filtrat > 60 mL/min Rate mL/min Glucose Level 90 mg/dl Calcium Level 9.4 mg/dl POC Venous Lactate 1.3 mmol/L Current Medications Medications Dose Sig/Evaristo Start Time Status Last (Trade) Ordered Route PRN Stop Time Admin Dose Reason Admin Sodium 2,940 ml BOLUS OVER 2 04/10/18 DC 04/10/18 Chloride HOURS STAT 17:29 19:20 (NS) IV* 04/10/18 17:35 Sodium 1,000 ml @ Q1H STAT 04/10/18 DC 04/10/18 Chloride 1,000 mls/hr IV 17:29 19:20 04/10/18 18:28 Ceftriaxone 50 ml @ ONCE ONCE 04/10/18 DC 04/10/18 Sodium 100 mls/hr IVPB 18:00 19:20 04/10/18 18:29 Oxycodone/ 1 tab ONCE ONCE 04/10/18 DC 04/10/18 Acetaminophen PO 20:00 20:13 (Endocet 04/10/18 20:01 (10/ 325)) Procedures/MDM LAB INTERPRETATION: * Normal lactic acid * Urinary tract infection MEDICAL DECISION MAKING: The patient's presentation is concerning for urinary tract infection with possible upper urinary tract involvement and pyelonephritis. The patient has a history of recurrent infections. His most recent urine culture revealed E. coli sensitive to cephalosporins. The patient is otherwise well-appearing in the emergency room. He will benefit from sepsis screening. The patient has had complications and does have a lower threshold for inpatient hospitalization but given how well-appearing he has if the patient has normal laboratory testing he may be a good candidate for outpatient therapy and oral therapy. Continue to monitor. ER COURSE: * The patient had sepsis screening with a normal lactic acid and a normal white count. He was written for IV fluids, blood cultures and urine and urine culture. * The patient's laboratory testing is very reassuring. * The patient was given ceftriaxone based on prior E. coli sensitivity testing. Percocet for pain. * At this point the patient has no evidence of complication. While the patient has had complicated UTIs in the past his recent sensitivity suggest outpatient therapy would be reasonable. Omnicef will be perfect. Patient's pain is well controlled. He seemed dynamically stable and I believe safe for outpatient management. CONSULTATION: [None] DISPOSITION PLAN: The patient does not have an identifiable emergent medical condition that warrants inpatient hospitalization at this time. The patient is deemed safe for discharge with outpatient follow-up. We discussed follow up with the patient's primary care doctor within 24 to 48 hours as needed. We also discussed return to the emergency room for worsening symptoms or worsening condition. Outpatient referral: [None required] Discharge Medications: Omnicef Departure Diagnosis: Primary Impression: Chronic pain Chronic pain type: other chronic pain Qualified Codes: G89.29 - Other chronic pain Additional Impression: UTI (urinary tract infection) Urinary tract infection type: acute cystitis Hematuria presence: without hematuria Qualified Codes: N30.00 - Acute cystitis without hematuria Condition: Stable JUAQUIN CAT MD Apr 10, 2018 17:45
[2018-04-10] MEDS ORDERED: CEFTRIAXONE 1 GM/50 ML (PMX) 50 ML IVPB ONE (18:00)
[2018-04-10] MEDS ORDERED: PHEN-717 PO (18:38)
[2018-04-10] MEDS ORDERED: NITR-58 PO (18:38)
[2018-04-10] MEDS ORDERED: OXYCODONE/ACETAMINOPHEN (10/325) TAB PO ONE (20:00)
[2018-04-10] MEDS ORDERED: CEFD300C2 PO (20:06)
[2018-04-10 20:28] VITALS: BP 156/94; PULSE 85; RESP 20
[2018-05-12] MEDS ORDERED: BACL10TA PO (10:13)
[2018-05-12] MEDS ORDERED: MUPI22OI2 TOP (10:13)
[2018-05-12] MEDS ORDERED: RANI150T5 PO (10:13)
[2018-05-12] MEDS ORDERED: GABA300C16 PO (10:13)
[2018-05-12] MEDS ORDERED: CLO15CR1 TOP (10:13)
[2018-05-12] MEDS ORDERED: SAN30GM TOP (10:13)
[2018-05-12] MEDS ORDERED: LACHYD12 TOP (10:13)
== END 2018-04-10 20:30 | disposition home or self-care (01) ==
LOC: E/R 14:13
DX: G89.29 Other chronic pain (principal); N30.00 Acute cystitis without hematuria; R10.9 Unspecified abdominal pain; Z91.040 Latex allergy status
CPT/HCPCS: 36415; 80048; 81001; 83605; 85025; 85610; 85730; 87040; 87086; 96374; J0696; J7030; Z7502; Z7610; 93005

== ENCOUNTER 2018-05-26 10:25 | Inpatient (IN) | payer OTHER ==
[~2018-05-26] VITALS: Ht 157.5 cm; Wt 105.0 kg
[~2018-05-26 10:25] MED LIST changes: -ACET325T33 PO; +BACL10TA PO; +CLO15CR1 TOP; -DOXY100T2 PO; -DOXY100T20 PO; +GABA300C16 PO; +LACHYD12 TOP; -LACT1CAP28 PO; +MUPI22OI2 TOP; +PHEN-717 PO; +RANI150T5 PO; +SAN30GM TOP
--- NOTE | 2018-05-26 12:50 | ERD ---
ER Documentation Chief Complaint Chief Complaint right ankle infection, was receiving abx at home but midline was dc'd HPI The patient is a 28-year-old male, presenting to the ER because he accidentally pulled out the midline on the right upper extremity for vancomycin IV 2 days ago. He was discharged from the hospital on March 12, 2019 with vancomycin IV for 8 weeks. The nurse came to his house administered a morning dose and he himself administered evening dose. He denies fever, chills, neck pain, chest pain, dyspnea, abdominal pain, vomiting, dysuria, diarrhea. Past medical history: Right foot osteomyelitis, spina bifida, sacral decubitus ulcer, history of hydrocephalus ROS All systems reviewed and are negative except as per history of present illness. Medications Home Meds Active Scripts Ranitidine Hcl* (Ranitidine Hcl*) 150 Mg Tablet, 150 MG PO HS, #30 TAB 2 Refills Prov:MARLY VALDIVIA S. 05/12/18 Mupirocin* (Bactroban*) 2% -22 Gram Oint...g., 1 APPLIC TOP BID, #1 BOTTLE 1 Refill Prov:JAVIERMARLY S. 05/12/18 Collagenase* (Santyl*) 30 Gm Oint..gm., 1 APPLIC TOP DAILY, #1 BOTTLE 1 Refill Prov:SHEAMARLY S. 05/12/18 Clotrimazole (Clotrim) 15 Gm Cr, 1 APPLIC TOP BID, #1 BOTTLE 1 Refill Prov:JAVIERMARLY S. 05/12/18 Ammonium Lactate* (Lac-Hydrin* 12% (225gm)) 1 Applic Lotion, 1 APPLIC TOP DAILY, #1 BOTTLE 1 Refill Prov:SHEAMARLY S. 05/12/18 Baclofen* (Baclofen*) 10 Mg Tablet, 10 MG PO TID, #90 TAB Prov:MARLY VALDIVIA S. 05/12/18 Gabapentin* (Gabapentin*) 300 Mg Capsule, 300 MG PO TID, #90 CAP Prov:MARLY VALDIVIA S. 05/12/18 Reported Medications Phenazopyridine Hcl* (Phenazopyridine Hcl*) 200 Mg Tablet, 200 MG PO TID, TAB FOR 3 DAYS 04/10/18 Allergies Allergies: Coded Allergies: latex (Unverified Allergy, Intermediate, RASH, 04/10/18) ketorolac (Unverified Allergy, Mild, RASH, 04/10/18) papaya (Unverified Allergy, Mild, 04/10/18) piperacillin (Unverified Allergy, Mild, 04/10/18) tazobactam (Unverified Allergy, Mild, 04/10/18) acetaminophen (Unverified Allergy, Unknown, RASH, 04/10/18) ibuprofen (Unverified Allergy, Unknown, LIP SWELLING, STATED THROAT IS CLOSING, 02/24/18) PMhx/Soc Anesthesia Reaction: No Hx Neurological Disorder: No Hx Respiratory Disorders: No Hx Cardiac Disorders: No Hx Psychiatric Problems: No Hx Miscellaneous Medical Probl: No Hx Alcohol Use: No Hx Substance Use: Yes (marijuana) Hx Tobacco Use: Yes Physical Exam Vitals Vital Signs Date Temp Pulse Resp B/P (MAP) Pulse Ox O2 O2 Flow FiO2 Time Delivery Rate 05/26/18 98.5 110 18 138/65 96 11:01 (89) Physical Exam Const: No acute distress. Head: Atraumatic. Eyes: Normal Conjunctiva. ENT: Normal External Ears, Nose and Mouth. Neck: Full range of motion. No meningismus. Resp: Clear to auscultation bilaterally. Cardio: Regular rate and rhythm. Abd: Soft, non distended, normal bowel sounds, non tender. Skin: No petechiae or rashes. Back: No midline or flank tenderness. Ext: Right ankle with an open wound with no discharge Neur: Awake and alert. No focal deficit Psych: Normal Mood and Affect. Results 24 hrs Current Medications Medications Dose Sig/Evaristo Start Time Status Last (Trade) Ordered Route PRN Stop Time Admin Dose Reason Admin 1 tab ONCE ONCE 05/26/18 Acetaminophen PO 13:30 / 05/26/18 13:31 Hydrocodone Bitart ([place] (5/325)) Procedures/MDM MEDICAL MAKING DECISION: The patient is a 28-year-old male, presenting for replacement of the midline for vancomycin IV administration at home. He does not know his doses, otherwise he would receive a vancomycin dose in the ER. He is advised to go home and administer his medication immediately. He was treated with [place] 5 mg p.o. for his pain with good response. The differential diagnoses considered include but are not limited to osteomyelitis, cellulitis, abscess Departure Diagnosis: Primary Impression: Encounter for intravenous line placement Condition: Good Comments The patient's blood pressure was elevated (>120/80) but appears stable without evidence of hypertension emergency or urgency. The patient was counseled about the risks of hypertension and urged to pursue outpatient monitoring and therapy within a week with their primary care physician. I discussed the findings with the patient. I advised the patient to follow-up with the primary physician and his infectious disease physician in about 2-3 days, sooner if needed and return if any concern. Disclaimer: Inadvertent spelling and grammatical errors are likely due to EHR/dictation software use and do not reflect on the overall quality of patient care. Also, please note that the electronic time recorded on this note does not necessarily reflect the actual time of the patient encounter. SAMY CONTE MD May 26, 2018 12:50
[2018-05-26] MEDS ORDERED: LIDOCAINE 1% (MDV) 20 ML INJ ONE (13:14)
[2018-05-26] MEDS ORDERED: LIDOCAINE 1% (MPF) 5 ML VIAL INJ ONE (13:30)
[2018-05-26] MEDS ORDERED: HYDROCODONE/APAP (5/325) TAB PO ONE (13:30)
[2018-05-26] MEDS ORDERED: LIDOCAINE 1% (MPF) 5 ML VIAL SC ONE (14:00)
--- NOTE | 2018-05-26 16:14 | HP ---
Date/Time of Note Date/Time of Note DATE: 05/26/18 TIME: 16:09 Assessment/Plan VTE Prophylaxis Pharmacological prophylaxis: LMWH Assessment/Plan Hospital Course CC Poor IV access MARSHA 28-y po M who was at home for the last wk treating osteomyelitis. Accidentally pulled out his PICC 2 days ago. He has been without vancomycin for 2 days. no fever nausea vomiting toxicity. ER: Stable vital signs. Unable to place new IV access. PMH Rt ankle osteomyelitis Spina bifida Sacral decubitus ulcer Tobacco abuse/marijuana abuse PSH tbd SH Tobacco marijuana. no alcohol FH There is no family history of early coronary disease cancer stroke that I am aware of ROS Neuro-no headache loss of speech or vision Cardio no chest pain dyspnea or edema Pulmonary no cough wheezing possible fever GI no pain nausea vomiting or diarrhea no dysuria hematuria or burning micturition MS moderate ongoing gait dysfunction no rash no itching no edema Psy fairly stable without any significant agitation anxiety depression Heme no hematochezia melena hematuria Endo no history of diabetes or thyroid dysfunction. Possible dyslipidemia Con no fever chills or weight loss that I am aware of PE No pallor adenopathy Regular Clear Benign Hypotonia A/P 1. Subacute right ankle osteomyelitis, mod stable cont vanco. Will need new IV access for the next 7 ws. H/o port infection & will try to avoid. Consulted vascular for central line 2. Sacral decubitus 3. Spina bifida 4. Ftt; dc to subacute with central line if feasible HPI/ROS Admit Date/Time Admit Date/Time PMH/Family/Social Past Medical History Medications Current Medications IV Flush (NS 3 ml) 3 ml PER PROTOCOL IV ; Start 05/26/18 at 16:30; Status UNV Ondansetron HCl (Zofran Inj) 4 mg Q6H PRN IV NAUSEA/VOMITING; Start 05/26/18 at 16:30; Status UNV Acetaminophen (Tylenol Tab) 650 mg Q6H PRN PO .PAIN 1-3 OR TEMP; Start 05/26/18 at 16:30; Status UNV Acetaminophen (Tylenol Supp) 650 mg Q6H PRN MA .PAIN 1-3 OR TEMP; Start 05/26/18 at 16:30; Status UNV Oxycodone/ Acetaminophen (Percocet (5/ 325)) 1 tab Q6H PRN PO .MOD PAIN 4-6; Start 05/26/18 at 16:30; Status UNV Morphine Sulfate (morphine) 2 mg Q4H PRN IV .SEVERE PAIN 7-10; Start 05/26/18 at 16:30; Status UNV Docusate Sodium (Colace) 100 mg Q12H PRN PO .CONSTIPATION; Start 05/26/18 at 16:30; Status UNV Magnesium Hydroxide (Milk Of Mag) 30 ml DAILY PRN PO .CONSTIPATION; Start 05/26/18 at 16:30; Status UNV Bisacodyl (Dulcolax) 5 mg DAILY PRN PO .CONSTIPATION; Start 05/26/18 at 16:30; Status UNV Bisacodyl (Dulcolax Supp) 10 mg DAILY PRN [place] .CONSTIPATION; Start 05/26/18 at 16:30; Status UNV Zolpidem Tartrate (Ambien) 5 mg QHS PRN PO .INSOMNIA; Start 05/26/18 at 16:30; Status UNV Vancomycin HCl (Vanco Iv Per Pharmacy) VANCOMYCIN PER PHARMACY PER PROTOCOL XX ; Start 05/26/18 at 16:30; Status UNV Lactobacillus Acidophilus/ Rhamnosus (Culturelle) 1 cap BID PO ; Start 05/26/18 at 21:00; Status UNV Coded Allergies: latex (Unverified Allergy, Intermediate, RASH, 04/10/18) ketorolac (Unverified Allergy, Mild, RASH, 04/10/18) papaya (Unverified Allergy, Mild, 04/10/18) piperacillin (Unverified Allergy, Mild, 04/10/18) tazobactam (Unverified Allergy, Mild, 04/10/18) ibuprofen (Unverified Allergy, Unknown, LIP SWELLING, STATED THROAT IS CLOSING, 02/24/18) Past Surgical History Past Surgical Hx: other Family History Significant Family History: no pertinent family hx Social History Smoking Status: Never smoker Exam/Review of Systems Vital Signs Vitals Vital Signs Date Temp Pulse Resp B/P (MAP) Pulse Ox O2 O2 Flow FiO2 Time Delivery Rate 05/26/18 98.5 110 18 138/65 96 11:01 (89) CHRIS TOPETE MD May 26, 2018 16:14
[2018-05-26] MEDS ORDERED: BISACODYL (EC) 5 MG TAB PO PRN (16:30)
[2018-05-26] MEDS ORDERED: VANCOMYCIN IV PER PHARMACY XX SCH (16:30)
[2018-05-26] MEDS ORDERED: ONDANSETRON 4 MG INJ IV PRN (16:30)
[2018-05-26] MEDS ORDERED: ACETAMINOPHEN 650 MG SUPP PR PRN (16:30)
[2018-05-26] MEDS ORDERED: ACETAMINOPHEN 325 MG TAB PO PRN (16:30)
[2018-05-26] MEDS ORDERED: NACL 0.9% 3 ML SYG IV SCH (16:30)
[2018-05-26] MEDS ORDERED: MAGNESIUM HYDROXIDE 30ML CUP PO PRN (16:30)
[2018-05-26] MEDS ORDERED: ZOLPIDEM 5 MG TAB PO PRN (16:30)
[2018-05-26] MEDS ORDERED: DOCUSATE SODIUM 100 MG CAP PO PRN (16:30)
[2018-05-26] MEDS ORDERED: BISACODYL 10 MG SUPP PR PRN (16:30)
[2018-05-26 17:30] VITALS: BP 136/91; PULSE 99; RESP 18
[2018-05-26] MEDS ORDERED: VANCOMYCIN HCL 2 GM in SOD CHLORIDE 0.9% 500 ML IVPB SCH (18:00)
[2018-05-26 20:00] VITALS: BP 135/81; PULSE 95; RESP 18
[2018-05-26] MEDS: OXYCODONE/ACETAMINOPHEN (5/325) TAB PO PRN (20:00)
[2018-05-26] MEDS: BACLOFEN 10 MG TAB PO SCH (23:26)
[2018-05-26] MEDS: GABAPENTIN 300 MG CAP PO SCH (23:26)
[2018-05-26] MEDS: LACTOBACILLUS RHAMNOSUS CAP PO SCH (23:26)
[2018-05-26] MEDS ORDERED: VITAMIN A & D 5 GM OINT PACKET TOP ONE (23:37)
[2018-05-26] MEDS ORDERED: COLLAGENASE 5 GM (UD JAR) TOP ONE (23:43)
[2018-05-27 00:07] VITALS: Ht 157.5 cm; Wt 105.0 kg
[2018-05-27] MEDS ORDERED: PENDING SANTYL ORDER FOR WOUND CARE XX PRN (01:00)
[2018-05-27 01:58] VITALS: BP 128/62; PULSE 86; RESP 17
[2018-05-27] MEDS: OXYCODONE/ACETAMINOPHEN (5/325) TAB PO PRN ×2 (01:59→08:23)
[2018-05-27] MEDS ORDERED: COLLAGENASE 5 GM (UD JAR) TOP PRN (05:00)
[2018-05-27] MEDS: VANCOMYCIN HCL 1.75 GM in SOD CHLORIDE 0.9% 500 ML IVPB SCH ×2 (06:48→17:38)
[2018-05-27] MEDS: COLLAGENASE 5 GM (UD JAR) TOP SCH (06:49)
[2018-05-27 08:12] VITALS: BP 120/58; PULSE 81; RESP 16
[2018-05-27] MEDS: BACLOFEN 10 MG TAB PO SCH ×3 (08:23→20:30)
[2018-05-27] MEDS: GABAPENTIN 300 MG CAP PO SCH ×3 (08:24→20:30)
[2018-05-27] MEDS: LACTOBACILLUS RHAMNOSUS CAP PO SCH ×2 (08:24→20:30)
[2018-05-27 14:17] VITALS: BP 125/63; PULSE 85; RESP 18
[2018-05-27] MEDS: OXYCODONE/ACETAMINOPHEN (10/325) TAB PO PRN ×3 (14:45→20:34)
--- NOTE | 2018-05-27 16:28 | PN ---
Date/Time of Note Date/Time of Note DATE: 05/27/18 TIME: 16:27 Assessment/Plan VTE Prophylaxis Risk score (from Ns)>0 risk: 7 SCD applied (from Ns): Yes SCD contraindicated: low risk/ambulating Pharmacological prophylaxis: LMWH Lines/Catheters IV Catheter Type (from Nrsg): Saline Lock Assessment/Plan Hospital Course A/P 1. Subacute right ankle osteomyelitis, mod stable cont vanco. Will need new IV access for the next 7 ws. H/o port infection & will try to avoid. Consulted vascular for central line 2. Sacral decubitus 3. Spina bifida 4. Ftt; dc to subacute with central line if feasible 5. Tobacco abuse/marijuana abuse PE No pallor Regular Clear Benign Hypotonia Exam/Review of Systems Exam Vitals Vital Signs Date Temp Pulse Resp B/P (MAP) Pulse Ox O2 O2 Flow FiO2 Time Delivery Rate 05/27/18 98.0 85 18 125/63 99 14:17 (83) 05/26/18 Room Air 17:30 Intake and Output 05/26/18 05/26/18 05/27/18 1414:59 22:59 06:59 IntakeIntake Total 500 ml BalanceBalance 500 ml Medications Medication Current Medications IV Flush (NS 3 ml) 3 ml PER PROTOCOL IV ; Start 05/26/18 at 16:30 Ondansetron HCl (Zofran Inj) 4 mg Q6H PRN IV NAUSEA/VOMITING; Start 05/26/18 at 16:30 Acetaminophen (Tylenol Tab) 650 mg Q6H PRN PO .PAIN 1-3 OR TEMP; Start 05/26/18 at 16:30 Acetaminophen (Tylenol Supp) 650 mg Q6H PRN [place] .PAIN 1-3 OR TEMP; Start 05/26/18 at 16:30 Morphine Sulfate (morphine) 2 mg Q4H PRN IV .SEVERE PAIN 7-10; Start 05/26/18 at 16:30 Docusate Sodium (Colace) 100 mg Q12H PRN PO .CONSTIPATION; Start 05/26/18 at 16:30 Magnesium Hydroxide (Milk Of Mag) 30 ml DAILY PRN PO .CONSTIPATION; Start 05/26/18 at 16:30 Bisacodyl (Dulcolax) 5 mg DAILY PRN PO .CONSTIPATION; Start 05/26/18 at 16:30 Bisacodyl (Dulcolax Supp) 10 mg DAILY PRN MO .CONSTIPATION; Start 05/26/18 at 16:30 Zolpidem Tartrate (Ambien) 5 mg QHS PRN PO .INSOMNIA; Start 05/26/18 at 16:30 Vancomycin HCl (Vanco Iv Per Pharmacy) VANCOMYCIN PER PHARMACY PER PROTOCOL XX ; Start 05/26/18 at 16:30 Lactobacillus Acidophilus/ Rhamnosus (Culturelle) 1 cap BID PO Last administered on 05/27/18at 08:24; Admin Dose 1 CAP; Start 05/26/18 at 21:00 Vancomycin HCl 1.75 gm/Sodium Chloride 500 ml @ 125 mls/hr Q12H IVPB Last administered on 05/27/18 06:48; Admin Dose 125 MLS/HR; Start 05/27/18 at 06:00 Baclofen (Lioresal) 10 mg TID PO Last administered on 05/27/18at 12:26; Admin Dose 10 MG; Start 05/26/18 at 23:00 Gabapentin (Neurontin) 300 mg TID PO Last administered on 05/27/18at 12:26; Admin Dose 300 MG; Start 05/26/18 at 23:00 Miscellaneous Information (Pending Santyl Order For Wound Care) This patient lorenzana... PRN PRN XX WOUND CARE; Start 05/27/18 at 01:00 Collagenase (Santyl) 1 applic DAILY TOP Last administered on 05/27/18at 06:49; Admin Dose 1 APPLIC; Start 05/27/18 at 04:53 Collagenase (Santyl) 1 applic PRN PRN TOP PRN; Start 05/27/18 at 05:00 Oxycodone/ Acetaminophen (Endocet (10/ 325)) 1 tab Q3H PRN PO MODERATE PAIN LEVEL 4-6 Last administered on 05/27/18at 14:45; Admin Dose 1 TAB; Start 05/27/18 at 14:00 CHRIS TOEPTE MD May 27, 2018 16:28
[2018-05-27 20:00] VITALS: BP 144/87; PULSE 80; RESP 18
--- NOTE | 2018-05-27 20:12 | CONS ---
DATE OF ADMISSION: 05/26/2018 DATE OF CONSULTATION: 05/27/2018 TYPE OF CONSULTATION: Infectious Disease. REASON FOR CONSULTATION: Antibiotic management. HISTORY OF PRESENT ILLNESS: Kunal Dick is an unfortunate 28-year-old male, well known to us from numerous hospitalizations. The patient comes in now with right ankle infection, for which he w as receiving antibiotics at home, but his midline was discontinued. He is a 28-year-old male, accide ntally pulled out his midline, for which he was receiving vancomycin. He was discharged on 8 with vancomycin for 8 weeks. His past problems include: 1. Spina bifida with paraplegia. 2. Right foot osteomyelitis. 3. Sacral decubitus ulcers. 4. 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 PAST MEDICAL HISTORY: As outlined. FAMILY HISTORY: Noncontributory. SOCIAL HISTORY: He does use tobacco and marijuana, does not smoke. FAMILY HISTORY: Noncontributory. ALLERGIES: 1. LATEX. 2. KETOROLAC. 3. VASOTEC. 4. PAPAYA. 5. ZOSYN. 6. ACETAMINOPHEN. 7. IBUPROFEN. PHYSICAL EXAMINATION: GENERAL: He is a well-developed, well-nourished, somewhat obese male who is pleasant, alert , responsive, in no acute distress. VITAL SIGNS: Stable. He is afebrile. SKIN: Without generalized rash. HEENT: Within normal limits. NECK: Supple. LYMPH NODES: None palpable. CHEST: Decreased breath sounds at the bases. HEART: Without murmur or gallop. ABDOMEN: Soft, nontender, without organosplenomegaly or masses. EXTREMITIES: Right ankle with open wound with no discharge. RECTAL AND GENITAL: Deferred. NEUROLOGIC: The patient is paraplegic. IMPRESSION AND PLAN: The patient needs replacement of midline for vancomycin administration at home. He received some Nora. He was somewhat hypertensive in the emergency room. The patient has poor IV access and therefore was admitted to hospital. I will dictate my findings to Dr. Topete and to hospitalist. Dictated By: DIAN ROUSSEAU MD, JD/NTS Conf#: [id number] DID#: [id number] CC: CHRIS TOPETE MD;*EndCC*
[2018-05-28] MEDS: OXYCODONE/ACETAMINOPHEN (10/325) TAB PO PRN ×7 (01:05→23:16)
[2018-05-28 02:00] VITALS: BP 142/77; PULSE 77; RESP 18
[2018-05-28] MEDS: VANCOMYCIN HCL 1.75 GM in SOD CHLORIDE 0.9% 500 ML IVPB SCH ×2 (05:25→18:11)
[2018-05-28 08:14] VITALS: BP 142/66; PULSE 68; RESP 18
[2018-05-28] MEDS: COLLAGENASE 5 GM (UD JAR) TOP SCH (08:41)
[2018-05-28] MEDS: BACLOFEN 10 MG TAB PO SCH ×3 (08:41→20:50)
[2018-05-28] MEDS: GABAPENTIN 300 MG CAP PO SCH ×3 (08:41→20:50)
[2018-05-28] MEDS: LACTOBACILLUS RHAMNOSUS CAP PO SCH ×2 (08:41→20:50)
--- NOTE | 2018-05-28 11:39 | OPR ---
Date/Time of Note Date/Time of Note DATE: 05/28/18 TIME: 11:38 Operative Report Procedure Date: May 28, 2018 Preoperative Diagnosis Osteomyelitis Postoperative Diagnosis Same Operation/Procedure Performed Left subclavian vein central line placement Surgeon see signature line Sheet Roller Operator None Anesthesia Type: other Estimated Blood Loss: none Transfusion none Specimen None Grafts/Implants none Complications none Disposition: PACU Procedure Description Patient was placed in the supine position prepped and draped in usual sterile fashion timeout was called access was gained in the left subclavian vein guidewire was advanced without any difficulty subcutaneous tissues were dilated to 20 cm central line advanced over a guidewire secured to skin using silk sutures patient tolerated procedure well CHRISTOPHER VOGT MD May 28, 2018 11:39
[2018-05-28] MEDS ORDERED: LIDOCAINE 1% (MDV) 20 ML INJ ONE (12:17)
[2018-05-28] MEDS: morphine 2 MG INJ IV PRN ×3 (13:49→22:08)
[2018-05-28 14:36] VITALS: BP 138/68; PULSE 70; RESP 18
--- NOTE | 2018-05-28 16:40 | CONS ---
Assessment/Plan Assessment/Plan Hospital Course (Demo Recall) No acute changes, awake, looks comfortable Antimicrobials: Vanco Allergies: Zosyn Physical examination: Well-developed obese middle-aged man in no distress. Head atraumatic normocephalic sclera nonicteric vehicle mucosa pink neck is supple chest rise symmetrical breath sounds clear heart: S1-S2 abdomen soft bowel sounds present extremities with left knee edema erythema and fluctuance on palpation Assessment: 1. 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 Morbid obesity 5. History of spina bifida 6. Hx MRSA col-n Plan: Stable, s/p LSC TLC, continue IV Vanco to complete treatment for OM==> last dose June 29 Consultation Date/Type/Reason Admit Date/Time May 26, 2018 at 15:45 Initial Consult Date Type of Consult id Date/Time of Note DATE: 05/28/18 TIME: 16:37 Exam/Review of Systems Exam Vitals Vital Signs Date Temp Pulse Resp B/P (MAP) Pulse Ox O2 O2 Flow FiO2 Time Delivery Rate 05/28/18 98.3 70 18 138/68 96 Room Air 14:36 (91) Intake and Output 05/27/18 05/27/18 05/28/18 1515:00 23:00 07:00 IntakeIntake Total 860 ml 1860 ml 740 ml BalanceBalance 860 ml 1860 ml 740 ml Medications Medication Current Medications IV Flush (NS 3 ml) 3 ml PER PROTOCOL IV ; Start 05/26/18 at 16:30 Ondansetron HCl (Zofran Inj) 4 mg Q6H PRN IV NAUSEA/VOMITING; Start 05/26/18 at 16:30 Acetaminophen (Tylenol Tab) 650 mg Q6H PRN PO .PAIN 1-3 OR TEMP; Start 05/26/18 at 16:30 Acetaminophen (Tylenol Supp) 650 mg Q6H PRN [place] .PAIN 1-3 OR TEMP; Start 05/26/18 at 16:30 Morphine Sulfate (morphine) 2 mg Q4H PRN IV .SEVERE PAIN 7-10 Last administered on 05/28/18at 13:49; Admin Dose 2 MG; Start 05/26/18 at 16:30 Docusate Sodium (Colace) 100 mg Q12H PRN PO .CONSTIPATION; Start 05/26/18 at 16 :30 Magnesium Hydroxide (Milk Of Mag) 30 ml DAILY PRN PO .CONSTIPATION; Start 05/26/18 at 16:30 Bisacodyl (Dulcolax) 5 mg DAILY PRN PO .CONSTIPATION; Start 05/26/18 at 16:30 Bisacodyl (Dulcolax Supp) 10 mg DAILY PRN [place] .CONSTIPATION; Start 05/26/18 at 1 6:30 Zolpidem Tartrate (Ambien) 5 mg QHS PRN PO .INSOMNIA; Start 05/26/18 at 16:30 Vancomycin HCl (Vanco Iv Per Pharmacy) VANCOMYCIN PER PHARMACY PER PROTOCOL XX ; Start 05/26/18 at 16:30 Lactobacillus Acidophilus/ Rhamnosus (Culturelle) 1 cap BID PO Last administered on 05/28/18at 08:41; Admin Dose 1 CAP; Start 05/26/18 at 21:00 Vancomycin HCl 1.75 gm/Sodium Chloride 500 ml @ 125 mls/hr Q12H IVPB Last administered on 05/28/18 05:25; Admin Dose 125 MLS/HR; Start 05/27/18 at 06:00 Baclofen (Lioresal) 10 mg TID PO Last administered on 05/28/18 12:31; Admin Dose 10 MG; Start 05/26/18 at 23:00 Gabapentin (Neurontin) 300 mg TID PO Last administered on 05/28/18 12:31; Admin Dose 300 MG; Start 05/26/18 at 23:00 Miscellaneous Information (Pending Santyl Order For Wound Care) This patient lorenzana... PRN PRN XX WOUND CARE; Start 05/27/18 at 01:00 Collagenase (Santyl) 1 applic DAILY TOP Last administered on 05/28/18at 08:41; Admin Dose 1 APPLIC; Start 05/27/18 at 04:53 Collagenase (Santyl) 1 applic PRN PRN TOP PRN; Start 05/27/18 at 05:00 Oxycodone/ Acetaminophen (Endocet (10/ 325)) 1 tab Q3H PRN PO MODERATE PAIN LEVEL 4-6 Last administered on 05/28/18at 15:55; Admin Dose 1 TAB; Start 05/27/18 at 14:00 Miscellaneous Information (*Rx Drug Level Order Reminder*) VANCO TROUGH ON ... ONCE ONCE XX ; Start 05/28/18 at 17:00; Stop 05/28/18 at 17:01 PAT RODRIGUEZ NP May 28, 2018 16:40
--- NOTE | 2018-05-28 17:58 | PN ---
Date/Time of Note Date/Time of Note DATE: 05/28/18 TIME: 17:56 Assessment/Plan VTE Prophylaxis Risk score (from Nsg)>0 risk: 9 SCD applied (from Nsg): Yes SCD contraindicated: low risk/ambulating Pharmacological prophylaxis: LMWH Lines/Catheters IV Catheter Type (from Nrsg): Central Line Central line still needed: Yes Assessment/Plan Hospital Course A/P 1. Subacute rt ankle OM, stable cont vanco. sp lt subclavian; 7 wks. H/o port infection & will try to avoid. 2. Sacral decubitus 3. Spina bifida 4. Ftt; dc to subacute with central line if feasible 5. Tobacco abuse/marijuana abuse S: No events. Staff noted some wheezing. Will monitor. No fever dyspnea O: Vital signs stable PE No pallor Regular Clear Benign Hypotonia Result Diagram: 05/28/18 1712 Results 24hrs Laboratory Tests Test 05/28/18 17:12 Blood Urea Nitrogen 24 H Creatinine 0.60 L Exam/Review of Systems Exam Vitals Vital Signs Date Temp Pulse Resp B/P (MAP) Pulse Ox O2 O2 Flow FiO2 Time Delivery Rate 05/28/18 98.3 70 18 138/68 96 Room Air 14:36 (91) Intake and Output 05/27/18 05/27/18 05/28/18 1414:59 22:59 06:59 IntakeIntake Total 860 ml 1860 ml 740 ml BalanceBalance 860 ml 1860 ml 740 ml Results Results 24hrs Laboratory Tests Test 05/28/18 17:12 Blood Urea Nitrogen 24 H Creatinine 0.60 L Medications Medication Current Medications IV Flush (NS 3 ml) 3 ml PER PROTOCOL IV ; Start 05/26/18 at 16:30 Ondansetron HCl (Zofran Inj) 4 mg Q6H PRN IV NAUSEA/VOMITING; Start 05/26/18 at 16:30 Acetaminophen (Tylenol Tab) 650 mg Q6H PRN PO .PAIN 1-3 OR TEMP; Start 05/26/18 at 16:30 Acetaminophen (Tylenol Supp) 650 mg Q6H PRN NE .PAIN 1-3 OR TEMP; Start 05/26/18 at 16:30 Morphine Sulfate (morphine) 2 mg Q4H PRN IV .SEVERE PAIN 7-10 Last administered on 05/28/18at 13:49; Admin Dose 2 MG; Start 05/26/18 at 16:30 Docusate Sodium (Colace) 100 mg Q12H PRN PO .CONSTIPATION; Start 05/26/18 at 16:30 Magnesium Hydroxide (Milk Of Mag) 30 ml DAILY PRN PO .CONSTIPATION; Start 05/26/18 at 16:30 Bisacodyl (Dulcolax) 5 mg DAILY PRN PO .CONSTIPATION; Start 05/26/18 at 16:30 Bisacodyl (Dulcolax Supp) 10 mg DAILY PRN NE .CONSTIPATION; Start 05/26/18 at 16:30 Zolpidem Tartrate (Ambien) 5 mg QHS PRN PO .INSOMNIA; Start 05/26/18 at 16:30 Vancomycin HCl (Vanco Iv Per Pharmacy) VANCOMYCIN PER PHARMACY PER PROTOCOL XX ; Start 05/26/18 at 16:30 Lactobacillus Acidophilus/ Rhamnosus (Culturelle) 1 cap BID PO Last administered on 05/28/18 08:41; Admin Dose 1 CAP; Start 05/26/18 at 21:00 Vancomycin HCl 1.75 gm/Sodium Chloride 500 ml @ 125 mls/hr Q12H IVPB Last administered on 05/28/18 05:25; Admin Dose 125 MLS/HR; Start 05/27/18 at 06:00 Baclofen (Lioresal) 10 mg TID PO Last administered on 05/28/18 12:31; Admin Dose 10 MG; Start 05/26/18 at 23:00 Gabapentin (Neurontin) 300 mg TID PO Last administered on 05/28/18 12:31; Admin Dose 300 MG; Start 05/26/18 at 23:00 Miscellaneous Information (Pending Santyl Order For Wound Care) This patient lorenzana... PRN PRN XX WOUND CARE; Start 05/27/18 at 01:00 Collagenase (Santyl) 1 applic DAILY TOP Last administered on 05/28/18 08:41; Admin Dose 1 APPLIC; Start 05/27/18 at 04:53 Collagenase (Santyl) 1 applic PRN PRN TOP PRN; Start 05/27/18 at 05:00 Oxycodone/ Acetaminophen (Endocet (10/ 325)) 1 tab Q3H PRN PO MODERATE PAIN LEVEL 4-6 Last administered on 2/28/19at 15:55; Admin Dose 1 TAB; Start 05/27/18 at 14:00 CHRIS TOPETE MD May 28, 2018 17:58
[2018-05-28] MEDS ORDERED: ALBUTEROL HFA 8 GM INHALER INH PRN (18:00)
[2018-05-28 19:10] VITALS: BP 136/91; PULSE 77; RESP 18
[2018-05-29 02:00] VITALS: BP 137/82; RESP 18
[2018-05-29] MEDS: morphine 2 MG INJ IV PRN ×5 (02:11→22:48)
[2018-05-29] MEDS: VANCOMYCIN HCL 1.75 GM in SOD CHLORIDE 0.9% 500 ML IVPB SCH (06:23)
[2018-05-29 08:25] VITALS: BP 157/78; PULSE 92; RESP 20
[2018-05-29] MEDS: BACLOFEN 10 MG TAB PO SCH ×3 (08:26→20:49)
[2018-05-29] MEDS: GABAPENTIN 300 MG CAP PO SCH ×3 (08:26→20:49)
[2018-05-29] MEDS: COLLAGENASE 5 GM (UD JAR) TOP SCH (08:26)
[2018-05-29] MEDS: LACTOBACILLUS RHAMNOSUS CAP PO SCH ×2 (08:26→20:48)
[2018-05-29] MEDS: OXYCODONE/ACETAMINOPHEN (10/325) TAB PO PRN ×3 (12:09→20:49)
--- NOTE | 2018-05-29 13:19 | CONS ---
Assessment/Plan Assessment/Plan Hospital Course (Demo Recall) No acute changes, awake, looks comfortable Antimicrobials: Vanco Allergies: Zosyn Physical examination: Well-developed obese middle-aged man in no distress. Head atraumatic normocephalic sclera nonicteric vehicle mucosa pink neck is supple chest rise symmetrical breath sounds clear heart: S1-S2 abdomen soft bowel sounds present extremities with left knee edema erythema and fluctuance on palpation Assessment: 1. 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 Morbid obesity 5. History of spina bifida 6. Hx MRSA col-n Plan: Stable, change abx to PO Zyvox 2 to venous access problem, abx for t reatment for OM==> last dose June 29 Consultation Date/Type/Reason Admit Date/Time May 29, 2018 at 08:05 Initial Consult Date Type of Consult id Date/Time of Note DATE: 05/29/18 TIME: 13:19 Exam/Review of Systems Exam Vitals Vital Signs Date Temp Pulse Resp B/P (MAP) Pulse Ox O2 O2 Flow FiO2 Time Delivery Rate 05/29/18 97.7 92 20 157/78 98 Room Air 08:25 (104) Intake and Output 05/28/18 05/28/18 05/29/18 1515:00 23:00 07:00 IntakeIntake Total 1440 ml 960 ml 200 ml BalanceBalance 1440 ml 960 ml 200 ml Results Result Diagram: 05/28/18 1712 Results 24hrs Laboratory Tests Test 05/28/18 17:12 Blood Urea Nitrogen 24 H Creatinine 0.60 L Vancomycin Level Trough 11.4 Medications Medication Current Medications IV Flush (NS 3 ml) 3 ml PER PROTOCOL IV ; Start 05/26/18 at 16:30 Ondansetron HCl (Zofran Inj) 4 mg Q6H PRN IV NAUSEA/VOMITING; Start 05/26/18 at 16:30 Acetaminophen (Tylenol Tab) 650 mg Q6H PRN PO .PAIN 1-3 OR TEMP; Start 05/26/18 at 16:30 Acetaminophen (Tylenol Supp) 650 mg Q6H PRN [place] .PAIN 1-3 OR TEMP; Start 05/26/18 at 16:30 Morphine Sulfate (morphine) 2 mg Q4H PRN IV .SEVERE PAIN 7-10 Last administered on 05/29/18at 08:27; Admin Dose 2 MG; Start 05/26/18 at 16:30 Docusate Sodium (Colace) 100 mg Q12H PRN PO .CONSTIPATION; Start 05/26/18 at 16:30 Magnesium Hydroxide (Milk Of Mag) 30 ml DAILY PRN PO .CONSTIPATION; Start 05/26/18 at 16:30 Bisacodyl (Dulcolax) 5 mg DAILY PRN PO .CONSTIPATION; Start 05/26/18 at 16:30 Bisacodyl (Dulcolax Supp) 10 mg DAILY PRN [place] .CONSTIPATION; Start 05/26/18 at 16:30 Zolpidem Tartrate (Ambien) 5 mg QHS PRN PO .INSOMNIA; Start 05/26/18 at 16:30 Lactobacillus Acidophilus/ Rhamnosus (Culturelle) 1 cap BID PO Last administered on 05/29/18at 08:26; Admin Dose 1 CAP; Start 05/26/18 at 21:00 Baclofen (Lioresal) 10 mg TID PO Last administered on 05/29/18at 12:09; Admin Dose 10 MG; Start 05/26/18 at 23:00 Gabapentin (Neurontin) 300 mg TID PO Last administered on 05/29/18 12:09; Admin Dose 300 MG; Start 05/26/18 at 23:00 Miscellaneous Information (Pending Santyl Order For Wound Care) This patient lorenzana... PRN PRN XX WOUND CARE; Start 05/27/18 at 01:00 Collagenase (Santyl) 1 applic DAILY TOP Last administered on 05/29/18 08:26; Admin Dose 1 APPLIC; Start 05/27/18 at 04:53 Collagenase (Santyl) 1 applic PRN PRN TOP PRN; Start 05/27/18 at 05:00 Oxycodone/ Acetaminophen (Endocet (10/ 325)) 1 tab Q3H PRN PO MODERATE PAIN LEVEL 4-6 Last administered on 05/29/18 12:09; Admin Dose 1 TAB; Start 05/27/18 at 14:00 Albuterol (Ventolin Hfa) 2 puff Q4H RESP THERAPY PRN INH WHEEZING AND SOB; Start 05/28/18 at 18:00 Linezolid (Zyvox) 600 mg BID PO ; Start 05/29/18 at 21:00; Status UNV ISMAIL-ZADE,NERA [facility] RN May 29, 2018 13:19
--- NOTE | 2018-05-29 13:29 | PN ---
Date/Time of Note Date/Time of Note DATE: 05/29/18 TIME: 13:28 Assessment/Plan VTE Prophylaxis Risk score (from Nsg)>0 risk: 10 SCD applied (from Nsg): Yes SCD contraindicated: low risk/ambulating Pharmacological prophylaxis: LMWH Lines/Catheters IV Catheter Type (from Nrsg): Central Line Central line still needed: Yes Assessment/Plan Hospital Course A/P 1. Subacute rt ankle OM, stable cont vanco. sp lt subclavian; 7 wks. H/o port infection? & will try to avoid. Will ask cm if linezolid is covered 2. Sacral decubitus history. Continue offload although patient is not adherent to medical management 3. Spina bifida 4. Ftt; dc to subacute with central line if feasible 5. Tobacco abuse/marijuana abuse 6. Nonadherence S: 05/28 no events. Staff noted some wheezing. Will monitor. No fever dyspnea /1: No fever dyspnea or diarrhea. O: Vital signs stable PE No pallor Regular Clear Benign Hypotonia Result Diagram: 05/28/18 1712 Results 24hrs Laboratory Tests Test 05/28/18 17:12 Blood Urea Nitrogen 24 H Creatinine 0.60 L Vancomycin Level Trough 11.4 Exam/Review of Systems Exam Vitals Vital Signs Date Temp Pulse Resp B/P (MAP) Pulse Ox O2 O2 Flow FiO2 Time Delivery Rate 05/29/18 97.7 92 20 157/78 98 Room Air 08:25 (104) Intake and Output 05/28/18 05/28/18 05/29/18 1515:00 23:00 07:00 IntakeIntake Total 1440 ml 960 ml 200 ml BalanceBalance 1440 ml 960 ml 200 ml Results Results 24hrs Laboratory Tests Test 05/28/18 17:12 Blood Urea Nitrogen 24 H Creatinine 0.60 L Vancomycin Level Trough 11.4 Medications Medication Current Medications IV Flush (NS 3 ml) 3 ml PER PROTOCOL IV ; Start 05/26/18 at 16:30 Ondansetron HCl (Zofran Inj) 4 mg Q6H PRN IV NAUSEA/VOMITING; Start 05/26/18 at 16:30 Acetaminophen (Tylenol Tab) 650 mg Q6H PRN PO .PAIN 1-3 OR TEMP; Start 05/26/18 at 16:30 Acetaminophen (Tylenol Supp) 650 mg Q6H PRN [place] .PAIN 1-3 OR TEMP; Start 05/26/18 at 16:30 Morphine Sulfate (morphine) 2 mg Q4H PRN IV .SEVERE PAIN 7-10 Last administered on 05/29/18 08:27; Admin Dose 2 MG; Start 05/26/18 at 16:30 Docusate Sodium (Colace) 100 mg Q12H PRN PO .CONSTIPATION; Start 05/26/18 at 16:30 Magnesium Hydroxide (Milk Of Mag) 30 ml DAILY PRN PO .CONSTIPATION; Start 05/26/18 at 16:30 Bisacodyl (Dulcolax) 5 mg DAILY PRN PO .CONSTIPATION; Start 05/26/18 at 16:30 Bisacodyl (Dulcolax Supp) 10 mg DAILY PRN [place] .CONSTIPATION; Start 05/26/18 at 16:30 Zolpidem Tartrate (Ambien) 5 mg QHS PRN PO .INSOMNIA; Start 05/26/18 at 16:30 Lactobacillus Acidophilus/ Rhamnosus (Culturelle) 1 cap BID PO Last administered on 05/29/18 08:26; Admin Dose 1 CAP; Start 05/26/18 at 21:00 Baclofen (Lioresal) 10 mg TID PO Last administered on 05/29/18 12:09; Admin Dose 10 MG; Start 05/26/18 at 23:00 Gabapentin (Neurontin) 300 mg TID PO Last administered on 05/29/18 12:09; Admin Dose 300 MG; Start 05/26/18 at 23:00 Miscellaneous Information (Pending Santyl Order For Wound Care) This patient lorenzana... PRN PRN XX WOUND CARE; Start 05/27/18 at 01:00 Collagenase (Santyl) 1 applic DAILY TOP Last administered on 05/29/18 08:26; Admin Dose 1 APPLIC; Start 05/27/18 at 04:53 Collagenase (Santyl) 1 applic PRN PRN TOP PRN; Start 05/27/18 at 05:00 Oxycodone/ Acetaminophen (Endocet (10/ 325)) 1 tab Q3H PRN PO MODERATE PAIN LEVEL 4-6 Last administered on 05/29/18 12:09; Admin Dose 1 TAB; Start 05/27/18 at 14:00 Albuterol (Ventolin Hfa) 2 puff Q4H RESP THERAPY PRN INH WHEEZING AND SOB; Start 05/28/18 at 18:00 Linezolid (Zyvox) 600 mg BID PO ; Start 05/29/18 at 13:30 CHRIS TOPETE MD May 29, 2018 13:29
[2018-05-29 14:30] VITALS: BP 143/63; PULSE 91; RESP 20
[2018-05-29] MEDS: ZYVOX 600 MG TAB PO SCH ×2 (15:20→23:42)
--- NOTE | 2018-05-29 18:46 | CONS ---
Assessment/Plan Assessment/Plan Assessment/Plan (Daily) RLE neuropathic ulcer RLE wound dehiscence RLE osteomyelitis Spina bifida Peripheral neuropathy Plan: Recommended wound VAC to be applied to right lower extremity ulceration site. Patient will need to continue with IV abx per ID recommendations. Wound VAC to be changed every 3 days. Possible plan for skin grafting in the OR setting with likely cast application. Offload heels with pillows. Consultation Date/Type/Reason Admit Date/Time May 29, 2018 at 08:05 Date/Time of Note DATE: 05/29/18 TIME: 18:46 Hx of Present Illness 28 y/o M who was seen in the past for right medial ankle ulceration and osteomyelitis with previous debridement and attempt of delayed primary closure. Patient pulled out his PICC line per the reports. He also reported that 1 week ago he had fallen and noticed the suture sites were ripped open from the previous surgery. Patient has been followed by home health care. He has been unable to use IV abx since he removed the PICC. He did report chills within the last week, but denies other constitutional symptoms. ROS: negative except for HPI Past Medical History 1. Spina bifida with paraplegia. 2. Right foot osteomyelitis. 3. Sacral decubitus ulcers. 4. History of hydrocephalus, status post [employer]ILITY [employer]ACTICE [employer]IST shunt placement. Home Meds Active Scripts Ranitidine Hcl* (Ranitidine Hcl*) 150 Mg Tablet, 150 MG PO HS, #30 TAB 2 Refills Prov:RAJAVIER,MARLY S. 05/12/18 Mupirocin* (Bactroban*) 2% -22 Gram Oint...g., 1 APPLIC TOP BID, #1 BOTTLE 1 Refill Prov:RAJAVIER,MARLY S. 05/12/18 Collagenase* (Santyl*) 30 Gm Oint..gm., 1 APPLIC TOP DAILY, #1 BOTTLE 1 Refill Prov:RAJAVIER,MARLY S. 05/12/18 Clotrimazole (Clotrim) 15 Gm Cr, 1 APPLIC TOP BID, #1 BOTTLE 1 Refill Prov:RAHI,MARLY S. 05/12/18 Ammonium Lactate* (Lac-Hydrin* 12% (225gm)) 1 Applic Lotion, 1 APPLIC TOP DAILY, #1 BOTTLE 1 Refill Prov:MARLY VALDIVIA S. 05/12/18 Baclofen* (Baclofen*) 10 Mg Tablet, 10 MG PO TID, #90 TAB Prov:MARLY VALDIVIA S. 05/12/18 Gabapentin* (Gabapentin*) 300 Mg Capsule, 300 MG PO TID, #90 CAP Prov:MARLY VALDIVIA S. 05/12/18 Reported Medications Phenazopyridine Hcl* (Phenazopyridine Hcl*) 200 Mg Tablet, 200 MG PO TID, TAB FOR 3 DAYS 04/10/18 Medications Current Medications IV Flush (NS 3 ml) 3 ml PER PROTOCOL IV ; Start 05/26/18 at 16:30 Ondansetron HCl (Zofran Inj) 4 mg Q6H PRN IV NAUSEA/VOMITING; Start 05/26/18 at 16:30 Acetaminophen (Tylenol Tab) 650 mg Q6H PRN PO .PAIN 1-3 OR TEMP; Start 05/26/18 at 16:30 Acetaminophen (Tylenol Supp) 650 mg Q6H PRN [place] .PAIN 1-3 OR TEMP; Start 05/26/18 at 16:30 Morphine Sulfate (morphine) 2 mg Q4H PRN IV .SEVERE PAIN 7-10 Last administered on 05/29/18at 14:22; Admin Dose 2 MG; Start 05/26/18 at 16:30 Docusate Sodium (Colace) 100 mg Q12H PRN PO .CONSTIPATION; Start 05/26/18 at 16:30 Magnesium Hydroxide (Milk Of Mag) 30 ml DAILY PRN PO .CONSTIPATION; Start 05/26/18 at 16:30 Bisacodyl (Dulcolax) 5 mg DAILY PRN PO .CONSTIPATION; Start 05/26/18 at 16:30 Bisacodyl (Dulcolax Supp) 10 mg DAILY PRN [place] .CONSTIPATION; Start 05/26/18 at 16:30 Zolpidem Tartrate (Ambien) 5 mg QHS PRN PO .INSOMNIA; Start 05/26/18 at 16:30 Lactobacillus Acidophilus/ Rhamnosus (Culturelle) 1 cap BID PO Last administered on 05/29/18at 08:26; Admin Dose 1 CAP; Start 05/26/18 at 21:00 Baclofen (Lioresal) 10 mg TID PO Last administered on 05/29/18at 12:09; Admin Dose 10 MG; Start 05/26/18 at 23:00 Gabapentin (Neurontin) 300 mg TID PO Last administered on 05/29/18 12:09; Admin Dose 300 MG; Start 05/26/18 at 23:00 Miscellaneous Information (Pending Santyl Order For Wound Care) This patient lorenzana... PRN PRN XX WOUND CARE; Start 05/27/18 at 01:00 Collagenase (Santyl) 1 applic DAILY TOP Last administered on 05/29/18at 08:26; Admin Dose 1 APPLIC; Start 05/27/18 at 04:53 Collagenase (Santyl) 1 applic PRN PRN TOP PRN; Start 05/27/18 at 05:00 Oxycodone/ Acetaminophen (Endocet (10 325)) 1 tab Q3H PRN PO MODERATE PAIN LEVEL 4-6 Last administered on 05/29/18at 15:56; Admin Dose 1 TAB; Start 05/27/18 at 14:00 Albuterol (Ventolin Hfa) 2 puff Q4H RESP THERAPY PRN INH WHEEZING AND SOB; Start 05/28/18 at 18:00 Linezolid (Zyvox) 600 mg BID PO Last administered on 05/29/18at 15:20; Admin Dose 600 MG; Start 05/29/18 at 13:30 Allergies: Coded Allergies: latex (Unverified Allergy, Intermediate, RASH, 04/10/18) ketorolac (Unverified Allergy, Mild, RASH, 04/10/18) papaya (Unverified Allergy, Mild, 04/10/18) piperacillin (Unverified Allergy, Mild, 04/10/18) tazobactam (Unverified Allergy, Mild, 04/10/18) ibuprofen (Unverified Allergy, Unknown, LIP SWELLING, STATED THROAT IS CLOSING, 02/24/18) Past Surgical History previous debridements and delayed primary wound closure. Past Surgical Hx: other Family History Significant Family History: no pertinent family hx Social History Smoking Status: Current every day smoker Exam/Review of Systems Exam Vitals Vital Signs Date Temp Pulse Resp B/P (MAP) Pulse Ox O2 O2 Flow FiO2 Time Delivery Rate 05/29/18 98.3 91 20 143/63 97 Room Air 14:30 (89) Intake and Output 05/28/18 05/28/18 05/29/18 1515:00 23:00 07:00 IntakeIntake Total 1440 ml 960 ml 200 ml BalanceBalance 1440 ml 960 ml 200 ml Exam Pedal pulses palpable Right medial ulceration site 4.5 x 3.5 x 0.6cm, probes to bone, no purulence expressed. No proximal streaking noted. Wound base fibrogranular. Sutures appeared loose and not well adhered to central portion of ulcer site. Absent protective sensations absent muscle strength Results Result Diagram: 05/28/18 1712 Medications Medication Current Medications IV Flush (NS 3 ml) 3 ml PER PROTOCOL IV ; Start 05/26/18 at 16:30 Ondansetron HCl (Zofran Inj) 4 mg Q6H PRN IV NAUSEA/VOMITING; Start 05/26/18 at 16:30 Acetaminophen (Tylenol Tab) 650 mg Q6H PRN PO .PAIN 1-3 OR TEMP; Start 05/26/18 at 16:30 Acetaminophen (Tylenol Supp) 650 mg Q6H PRN [place] .PAIN 1-3 OR TEMP; Start 05/26/18 at 16:30 Morphine Sulfate (morphine) 2 mg Q4H PRN IV .SEVERE PAIN 7-10 Last administered on 05/29/18at 14:22; Admin Dose 2 MG; Start 05/26/18 at 16:30 Docusate Sodium (Colace) 100 mg Q12H PRN PO .CONSTIPATION; Start 05/26/18 at 16:30 Magnesium Hydroxide (Milk Of Mag) 30 ml DAILY PRN PO .CONSTIPATION; Start 05/26/18 at 16:30 Bisacodyl (Dulcolax) 5 mg DAILY PRN PO .CONSTIPATION; Start 05/26/18 at 16:30 Bisacodyl (Dulcolax Supp) 10 mg DAILY PRN [place] .CONSTIPATION; Start 05/26/18 at 16:30 Zolpidem Tartrate (Ambien) 5 mg QHS PRN PO .INSOMNIA; Start 05/26/18 at 16:30 Lactobacillus Acidophilus/ Rhamnosus (Culturelle) 1 cap BID PO Last administered on 05/29/18at 08:26; Admin Dose 1 CAP; Start 05/26/18 at 21:00 Baclofen (Lioresal) 10 mg TID PO Last administered on 05/29/18at 12:09; Admin Dose 10 MG; Start 05/26/18 at 23:00 Gabapentin (Neurontin) 300 mg TID PO Last administered on 05/29/18 12:09; Admin Dose 300 MG; Start 05/26/18 at 23:00 Miscellaneous Information (Pending Santyl Order For Wound Care) This patient lorenzana... PRN PRN XX WOUND CARE; Start 05/27/18 at 01:00 Collagenase (Santyl) 1 applic DAILY TOP Last administered on 05/29/18 08:26; Admin Dose 1 APPLIC; Start 05/27/18 at 04:53 Collagenase (Santyl) 1 applic PRN PRN TOP PRN; Start 05/27/18 at 05:00 Oxycodone/ Acetaminophen (Endocet (10 325)) 1 tab Q3H PRN PO MODERATE PAIN LEVEL 4-6 Last administered on 05/29/18at 15:56; Admin Dose 1 TAB; Start 05/27/18 at 14:00 Albuterol (Ventolin Hfa) 2 puff Q4H RESP THERAPY PRN INH WHEEZING AND SOB; Start 05/28/18 at 18:00 Linezolid (Zyvox) 600 mg BID PO Last administered on 05/29/18at 15:20; Admin Dose 600 MG; Start 05/29/18 at 13:30 LUCINA RINALDI DPM May 29, 2018 18:46
[2018-05-29 19:28] VITALS: BP 162/83; PULSE 86; RESP 17
[2018-05-29 21:00] VITALS: BP 140/74; PULSE 78; RESP 18
[2018-05-29] MEDS ORDERED: ZYVOX 600 MG TAB PO SCH (21:00)
[2018-05-30 02:00] VITALS: BP 131/60; PULSE 78; RESP 18
[2018-05-30] MEDS: morphine 2 MG INJ IV PRN ×4 (05:08→22:33)
[2018-05-30] MEDS: OXYCODONE/ACETAMINOPHEN (10/325) TAB PO PRN ×4 (06:30→21:27)
[2018-05-30 07:45] VITALS: BP 130/66; PULSE 90; RESP 18; RESP 8
[2018-05-30] MEDS: GABAPENTIN 300 MG CAP PO SCH ×3 (08:51→20:54)
[2018-05-30] MEDS: BACLOFEN 10 MG TAB PO SCH ×3 (08:51→20:54)
[2018-05-30] MEDS: ZYVOX 600 MG TAB PO SCH ×2 (08:51→20:54)
[2018-05-30] MEDS: LACTOBACILLUS RHAMNOSUS CAP PO SCH ×2 (08:51→20:55)
--- NOTE | 2018-05-30 12:52 | CONS ---
Assessment/Plan Assessment/Plan Hospital Course (Demo Recall) ID PROGRESS NOTE CURRENT ABX: DAY # => ZYVOX PO s/p Vanco IV 24H INTERVAL SUMMARY * Clinically stable -- A/A/O, watching TV, no fevers, VSS, NAD -- bedbound due to spina bifida/PARAPLEGIA * Voiding on his own -- hx of recurrent UTIs suspect neurogenic bladder w/urostasis * Lost IV access -- taking Zyvox PO MICRO/OTHER * 05/04/18 BONE TISSUE CX FOOT: TISSUE (BIOPSY) CULTURE Final Organism 1 METHICILLIN RESISTANT S.AUREUS QUANTITY SCANT GROWTH . MULTI DRUG RESISTANT ORGANISM MRSA M.I.C. RX --------- --- CEFAZOLIN R CIPROFLOXACIN 4 R CLINDAMYCIN <=0.25 S DOXYCYCLINE S ERYTHROMYCIN >=8 R LEVOFLOXACIN 4 R OXACILLIN >=4 R PENICILLIN-G >=0.5 R RIFAMPIN <=0.5 S VANCOMYCIN <=0.5 S TRIMETHOPRIM/SULFAMETHOXAZOLE <=10 S PHYSICAL EXAMINATION: GENERAL: Afebrile, VSS HEENT: AT, NC, anicteric NECK: Supple, trach midline CHEST: Equal chest rise bilaterally, without dyspnea on observation HEART: Pulse RRR ABDOMEN: Soft / NT EXTREMITIES: Warm, dry == SEE PHOTOS WOUNDS SKIN: No rash, no diaphoresis == SEE PHOTOS WOUNDS ID ASSESSMENT 28 yo M w/paraplegia due to hx of spina bifida admit with: 1. R foot MRSA OM s/p I/D 05/04/18 2. Neurogenic bladder w/hx of recurrent UTI's 3. 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 Morbid obesity ()MRSA Nares ABX ALLERGIES: PCN/ZOSYN INVASIVES: PIV CURRENT ABX: DAY #ZYVOX PO s/p Vanco IV ID RECOMMENDATIONS/PLAN: 1. Continue current ABX 2. ID MEDICAID ANALYST Colleague to f/u tomorrow . Consultation Date/Type/Reason Admit Date/Time May 29, 2018 at 08:05 Initial Consult Date Date/Time of Note DATE: 05/30/18 TIME: 12:52 Exam/Review of Systems Exam Vitals Vital Signs Date Temp Pulse Resp B/P (MAP) Pulse Ox O2 O2 Flow FiO2 Time Delivery Rate 05/30/18 97.9 90 8 130/66 97 Room Air 07:45 (87) Intake and Output 05/29/18 05/29/18 05/30/18 1414:59 22:59 06:59 IntakeIntake Total 1500 ml 660 ml OutputOutput Total 0 ml BalanceBalance 1500 ml 660 ml Results Result Diagram: 05/30/18 0500 05/30/18 0500 Results 24hrs Laboratory Tests Test 05/30/18 05:00 White Blood Count 7.3 Red Blood Count 4.46 L Hemoglobin 12.6 L Hematocrit 40.1 L Mean Corpuscular Volume 89.9 Mean Corpuscular Hemoglobin 28.3 L Mean Corpuscular Hemoglobin Concent 31.4 L Red Cell Distribution Width 13.2 Platelet Count 303 Mean Platelet Volume 9.4 Immature Granulocytes % 0.700 H Neutrophils % 49.8 Lymphocytes % 32.1 Monocytes % 9.9 Eosinophils % 7.1 H Basophils % 0.4 Nucleated Red Blood Cells % 0.0 Immature Granulocytes # 0.050 H Neutrophils # 3.6 Lymphocytes # 2.3 Monocytes # 0.7 Eosinophils # 0.5 Basophils # 0.0 Nucleated Red Blood Cells # 0.0 Sodium Level 142 Potassium Level 4.2 Chloride Level 105 Carbon Dioxide Level 29 Anion Gap 8 Blood Urea Nitrogen 25 H Creatinine 0.58 L Est Glomerular Filtrat Rate mL/min > 60 Glucose Level 93 Calcium Level 9.1 Total Bilirubin 0.1 L Direct Bilirubin 0.00 Indirect Bilirubin 0.1 Aspartate Amino Transf (AST/SGOT) 328 H Alanine Aminotransferase (ALT/SGPT) 474 H Alkaline Phosphatase 179 H Total Protein 7.5 Albumin 3.6 Globulin 3.90 H Albumin/Globulin Ratio 0.92 Medications Medication Current Medications IV Flush (NS 3 ml) 3 ml PER PROTOCOL IV ; Start 05/26/18 at 16:30 Ondansetron HCl (Zofran Inj) 4 mg Q6H PRN IV NAUSEA/VOMITING; Start 05/26/18 at 16:30 Acetaminophen (Tylenol Tab) 650 mg Q6H PRN PO .PAIN 1-3 OR TEMP; Start 05/26/18 at 16:30 Acetaminophen (Tylenol Supp) 650 mg Q6H PRN [place] .PAIN 1-3 OR TEMP; Start 05/26/18 at 16:30 Morphine Sulfate (morphine) 2 mg Q4H PRN IV .SEVERE PAIN 7-10 Last administered on 05/30/18at 09:14; Admin Dose 2 MG; Start 05/26/18 at 16:30 Docusate Sodium (Colace) 100 mg Q12H PRN PO .CONSTIPATION; Start 05/26/18 at 16:30 Magnesium Hydroxide (Milk Of Mag) 30 ml DAILY PRN PO .CONSTIPATION; Start 05/26/18 at 16:30 Bisacodyl (Dulcolax) 5 mg DAILY PRN PO .CONSTIPATION; Start 05/26/18 at 16:30 Bisacodyl (Dulcolax Supp) 10 mg DAILY PRN [place] .CONSTIPATION; Start 05/26/18 at 16:30 Zolpidem Tartrate (Ambien) 5 mg QHS PRN PO .INSOMNIA; Start 05/26/18 at 16:30 Lactobacillus Acidophilus/ Rhamnosus (Culturelle) 1 cap BID PO Last administered on 05/30/18at 08:51; Admin Dose 1 CAP; Start 05/26/18 at 21:00 Baclofen (Lioresal) 10 mg TID PO Last administered on 05/30/18at 08:51; Admin Dose 10 MG; Start 05/26/18 at 23:00 Gabapentin (Neurontin) 300 mg TID PO Last administered on 05/30/18 08:51; Admin Dose 300 MG; Start 05/26/18 at 23:00 Miscellaneous Information (Pending Santyl Order For Wound Care) This patient lorenzana... PRN PRN XX WOUND CARE; Start 05/27/18 at 01:00 Collagenase (Santyl) 1 applic PRN PRN TOP PRN; Start 05/27/18 at 05:00 Oxycodone/ Acetaminophen (Endocet (10/ 325)) 1 tab Q3H PRN PO MODERATE PAIN LEVEL 4-6 Last administered on 05/30/18at 06:30; Admin Dose 1 TAB; Start 05/27/18 at 14:00 Albuterol (Ventolin Hfa) 2 puff Q4H RESP THERAPY PRN INH WHEEZING AND SOB; Start 05/28/18 at 18:00 Linezolid (Zyvox) 600 mg BID PO Last administered on 05/30/18at 08:51; Admin Dose 600 MG; Start 05/29/18 at 13:30 DALIA OCASIO NP May 30, 2018 12:52
[2018-05-30 14:28] VITALS: BP 163/79; PULSE 94; RESP 18
--- NOTE | 2018-05-30 15:45 | PN ---
Date/Time of Note Date/Time of Note DATE: 05/30/18 TIME: 15:44 Assessment/Plan VTE Prophylaxis Risk score (from Nsg)>0 risk: 10 SCD applied (from Ns): Yes SCD contraindicated: low risk/ambulating Pharmacological prophylaxis: LMWH Lines/Catheters IV Catheter Type (from Nrsg): Central Line Central line still needed: Yes Assessment/Plan Hospital Course A/P 1. 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 sp lt subclavian; 7 wks. H/o port infection? & will try to avoid. Will ask cm if linezolid is covered; form signed. 2. Sacral decubitus history. Continue offload although patient is not adherent to medical management 3. Spina bifida 4. Ftt; dc to subacute with central line if feasible 5. Tobacco abuse/marijuana abuse 6. Nonadherence 7. Abnormal LFTs asymptomatic, likely due to hepatic steatosis, stable observe S: 05/28 no events. Staff noted some wheezing. Will monitor. No fever dyspnea /1: No fever dyspnea or diarrhea 3/2: No events. O: Vital signs stable PE No pallor Regular Clear; triple-lumen site C/D/I Benign distended no RRG Hypotonia Result Diagram: 05/30/18 0500 05/30/18 0500 Results 24hrs Laboratory Tests Test 05/30/18 05:00 White Blood Count 7.3 Red Blood Count 4.46 L Hemoglobin 12.6 L Hematocrit 40.1 L Mean Corpuscular Volume 89.9 Mean Corpuscular Hemoglobin 28.3 L Mean Corpuscular Hemoglobin Concent 31.4 L Red Cell Distribution Width 13.2 Platelet Count 303 Mean Platelet Volume 9.4 Immature Granulocytes % 0.700 H Neutrophils % 49.8 Lymphocytes % 32.1 Monocytes % 9.9 Eosinophils % 7.1 H Basophils % 0.4 Nucleated Red Blood Cells % 0.0 Immature Granulocytes # 0.050 H Neutrophils # 3.6 Lymphocytes # 2.3 Monocytes # 0.7 Eosinophils # 0.5 Basophils # 0.0 Nucleated Red Blood Cells # 0.0 Sodium Level 142 Potassium Level 4.2 Chloride Level 105 Carbon Dioxide Level 29 Anion Gap 8 Blood Urea Nitrogen 25 H Creatinine 0.58 L Est Glomerular Filtrat Rate mL/min > 60 Glucose Level 93 Calcium Level 9.1 Total Bilirubin 0.1 L Direct Bilirubin 0.00 Indirect Bilirubin 0.1 Aspartate Amino Transf (AST/SGOT) 328 H Alanine Aminotransferase (ALT/SGPT) 474 H Alkaline Phosphatase 179 H Total Protein 7.5 Albumin 3.6 Globulin 3.90 H Albumin/Globulin Ratio 0.92 Exam/Review of Systems Exam Vitals Vital Signs Date Temp Pulse Resp B/P (MAP) Pulse Ox O2 O2 Flow FiO2 Time Delivery Rate 05/30/18 97.6 94 18 163/79 97 Room Air 14:28 (107) Intake and Output 05/29/18 05/29/18 05/30/18 1515:00 23:00 07:00 IntakeIntake Total 1500 ml 660 ml OutputOutput Total 0 ml BalanceBalance 1500 ml 660 ml Results Results 24hrs Laboratory Tests Test 05/30/18 05:00 White Blood Count 7.3 Red Blood Count 4.46 L Hemoglobin 12.6 L Hematocrit 40.1 L Mean Corpuscular Volume 89.9 Mean Corpuscular Hemoglobin 28.3 L Mean Corpuscular Hemoglobin Concent 31.4 L Red Cell Distribution Width 13.2 Platelet Count 303 Mean Platelet Volume 9.4 Immature Granulocytes % 0.700 H Neutrophils % 49.8 Lymphocytes % 32.1 Monocytes % 9.9 Eosinophils % 7.1 H Basophils % 0.4 Nucleated Red Blood Cells % 0.0 Immature Granulocytes # 0.050 H Neutrophils # 3.6 Lymphocytes # 2.3 Monocytes # 0.7 Eosinophils # 0.5 Basophils # 0.0 Nucleated Red Blood Cells # 0.0 Sodium Level 142 Potassium Level 4.2 Chloride Level 105 Carbon Dioxide Level 29 Anion Gap 8 Blood Urea Nitrogen 25 H Creatinine 0.58 L Est Glomerular Filtrat Rate mL/min > 60 Glucose Level 93 Calcium Level 9.1 Total Bilirubin 0.1 L Direct Bilirubin 0.00 Indirect Bilirubin 0.1 Aspartate Amino Transf (AST/SGOT) 328 H Alanine Aminotransferase (ALT/SGPT) 474 H Alkaline Phosphatase 179 H Total Protein 7.5 Albumin 3.6 Globulin 3.90 H Albumin/Globulin Ratio 0.92 Medications Medication Current Medications IV Flush (NS 3 ml) 3 ml PER PROTOCOL IV ; Start 05/26/18 at 16:30 Ondansetron HCl (Zofran Inj) 4 mg Q6H PRN IV NAUSEA/VOMITING; Start 05/26/18 at 16:30 Acetaminophen (Tylenol Tab) 650 mg Q6H PRN PO .PAIN 1-3 OR TEMP; Start 05/26/18 at 16:30 Acetaminophen (Tylenol Supp) 650 mg Q6H PRN [place] .PAIN 1-3 OR TEMP; Start 05/26/18 at 16:30 Morphine Sulfate (morphine) 2 mg Q4H PRN IV .SEVERE PAIN 7-10 Last administered on 05/30/18at 09:14; Admin Dose 2 MG; Start 05/26/18 at 16:30 Docusate Sodium (Colace) 100 mg Q12H PRN PO .CONSTIPATION; Start 05/26/18 at 16:30 Magnesium Hydroxide (Milk Of Mag) 30 ml DAILY PRN PO .CONSTIPATION; Start 05/26/18 at 16:30 Bisacodyl (Dulcolax) 5 mg DAILY PRN PO .CONSTIPATION; Start 05/26/18 at 16:30 Bisacodyl (Dulcolax Supp) 10 mg DAILY PRN [place] .CONSTIPATION; Start 05/26/18 at 16:30 Zolpidem Tartrate (Ambien) 5 mg QHS PRN PO .INSOMNIA; Start 05/26/18 at 16:30 Lactobacillus Acidophilus/ Rhamnosus (Culturelle) 1 cap BID PO Last administered on 05/30/18at 08:51; Admin Dose 1 CAP; Start 05/26/18 at 21:00 Baclofen (Lioresal) 10 mg TID PO Last administered on 05/30/18at 13:22; Admin Dose 10 MG; Start 05/26/18 at 23:00 Gabapentin (Neurontin) 300 mg TID PO Last administered on 05/30/18 13:22; Admin Dose 300 MG; Start 05/26/18 at 23:00 Miscellaneous Information (Pending Santyl Order For Wound Care) This patient lorenzana... PRN PRN XX WOUND CARE; Start 05/27/18 at 01:00 Collagenase (Santyl) 1 applic PRN PRN TOP PRN; Start 05/27/18 at 05:00 Oxycodone/ Acetaminophen (Endocet (10/ 325)) 1 tab Q3H PRN PO MODERATE PAIN LEVEL 4-6 Last administered on 05/30/18at 13:06; Admin Dose 1 TAB; Start 05/27/18 at 14:00 Albuterol (Ventolin Hfa) 2 puff Q4H RESP THERAPY PRN INH WHEEZING AND SOB; Start 05/28/18 at 18:00 Linezolid (Zyvox) 600 mg BID PO Last administered on 05/30/18at 08:51; Admin Dose 600 MG; Start 05/29/18 at 13:30 CHRIS TOPETE MD May 30, 2018 15:45
[2018-05-30 21:23] VITALS: BP 159/76; PULSE 96; RESP 17
[2018-05-31 02:00] VITALS: BP 135/78; PULSE 83; RESP 18
[2018-05-31 08:08] VITALS: BP 147/80; PULSE 79; RESP 17
[2018-05-31] MEDS: morphine 2 MG INJ IV PRN ×4 (08:29→20:37)
[2018-05-31] MEDS: LACTOBACILLUS RHAMNOSUS CAP PO SCH ×2 (08:30→20:28)
[2018-05-31] MEDS: ZYVOX 600 MG TAB PO SCH ×2 (08:30→20:28)
[2018-05-31] MEDS: GABAPENTIN 300 MG CAP PO SCH ×3 (08:30→20:28)
[2018-05-31] MEDS: BACLOFEN 10 MG TAB PO SCH ×3 (08:30→20:28)
[2018-05-31] MEDS: ENOXAPARIN 40 MG/0.4 ML SYG SC SCH (08:31)
[2018-05-31] MEDS: OXYCODONE/ACETAMINOPHEN (10/325) TAB PO PRN ×4 (09:36→21:31)
--- NOTE | 2018-05-31 13:50 | PN ---
Date/Time of Note Date/Time of Note DATE: 05/31/18 TIME: 13:47 Assessment/Plan VTE Prophylaxis Risk score (from Ns)>0 risk: 11 SCD applied (from Ns): Yes SCD contraindicated: low risk/ambulating Pharmacological prophylaxis: NA/contraindicated Pharm contraindication: surgical contra Lines/Catheters [facility] Central [facility] Central line still needed: Yes Assessment/Plan Hospital Course A/P 1. Subacute rt ankle OM, stable cont vanco vs Linezolid for 7more wks. sp lt subclavian. Ho port infection? Linezolid coverage pending/ form signed. Debridement tomorrow. 2. Sacral decubitus history. Continue offload although patient is not adherent to medical management 3. Spina bifida 4. Ftt; dc to subacute with central line if feasible. vs home w po's/ Vac. 5. Tobacco abuse/marijuana abuse 6. Nonadherence 7. Abnormal LFTs asymptomatic, likely due to hepatic steatosis, stable observe S: 05/28 no events. Staff noted some wheezing. Will monitor. No fever dyspnea /1: No fever dyspnea or diarrhea 3/2: No events. 3/3: No distress no events O: Vital signs stable PE No pallor Regular Clear; triple-lumen site C/D/I Benign distended no RRG Hypotonia Result Diagram: 05/31/18 0520 05/31/18 0520 Results 24hrs Laboratory Tests Test 05/31/18 05:20 White Blood Count 7.4 Red Blood Count 4.48 L Hemoglobin 12.6 L Hematocrit 40.8 L Mean Corpuscular Volume 91.1 Mean Corpuscular Hemoglobin 28.1 L Mean Corpuscular Hemoglobin Concent 30.9 L Red Cell Distribution Width 13.5 Platelet Count 315 Mean Platelet Volume 9.4 Immature Granulocytes % 0.800 H Neutrophils % 48.2 Lymphocytes % 31.8 Monocytes % 10.3 Eosinophils % 8.5 H Basophils % 0.4 Nucleated Red Blood Cells % 0.0 Immature Granulocytes # 0.060 H Neutrophils # 3.6 Lymphocytes # 2.4 Monocytes # 0.8 Eosinophils # 0.6 H Basophils # 0.0 Nucleated Red Blood Cells # 0.0 Sodium Level 143 Potassium Level 4.0 Chloride Level 107 Carbon Dioxide Level 28 Anion Gap 8 Blood Urea Nitrogen 27 H Creatinine 0.54 L Est Glomerular Filtrat Rate mL/min > 60 Glucose Level 107 Calcium Level 8.9 Total Bilirubin 0.0 L Direct Bilirubin 0.00 Indirect Bilirubin 0.0 Aspartate Amino Transf (AST/SGOT) 313 H Alanine Aminotransferase (ALT/SGPT) 661 H Alkaline Phosphatase 203 H Total Protein 7.3 Albumin 3.6 Globulin 3.70 H Albumin/Globulin Ratio 0.97 Hepatitis B Surface Antigen NEGATIVE Hepatitis B Core Total Antibody NEGATIVE Hepatitis C Antibody NEGATIVE Exam/Review of Systems Exam Vitals Vital Signs Date Temp Pulse Resp B/P (MAP) Pulse Ox O2 O2 Flow FiO2 Time Delivery Rate 05/31/18 98.1 79 17 147/80 97 Room Air 08:08 (102) Intake and Output 05/30/18 05/30/18 05/31/18 1414:59 22:59 06:59 IntakeIntake Total 1200 ml OutputOutput Total 0 ml 0 ml BalanceBalance 1200 ml 0 ml Results Results 24hrs Laboratory Tests Test 05/31/18 05:20 White Blood Count 7.4 Red Blood Count 4.48 L Hemoglobin 12.6 L Hematocrit 40.8 L Mean Corpuscular Volume 91.1 Mean Corpuscular Hemoglobin 28.1 L Mean Corpuscular Hemoglobin Concent 30.9 L Red Cell Distribution Width 13.5 Platelet Count 315 Mean Platelet Volume 9.4 Immature Granulocytes % 0.800 H Neutrophils % 48.2 Lymphocytes % 31.8 Monocytes % 10.3 Eosinophils % 8.5 H Basophils % 0.4 Nucleated Red Blood Cells % 0.0 Immature Granulocytes # 0.060 H Neutrophils # 3.6 Lymphocytes # 2.4 Monocytes # 0.8 Eosinophils # 0.6 H Basophils # 0.0 Nucleated Red Blood Cells # 0.0 Sodium Level 143 Potassium Level 4.0 Chloride Level 107 Carbon Dioxide Level 28 Anion Gap 8 Blood Urea Nitrogen 27 H Creatinine 0.54 L Est Glomerular Filtrat Rate mL/min > 60 Glucose Level 107 Calcium Level 8.9 Total Bilirubin 0.0 L Direct Bilirubin 0.00 Indirect Bilirubin 0.0 Aspartate Amino Transf (AST/SGOT) 313 H Alanine Aminotransferase (ALT/SGPT) 661 H Alkaline Phosphatase 203 H Total Protein 7.3 Albumin 3.6 Globulin 3.70 H Albumin/Globulin Ratio 0.97 Hepatitis B Surface Antigen NEGATIVE Hepatitis B Core Total Antibody NEGATIVE Hepatitis C Antibody NEGATIVE Medications Medication Current Medications IV Flush (NS 3 ml) 3 ml PER PROTOCOL IV ; Start 05/26/18 at 16:30 Ondansetron HCl (Zofran Inj) 4 mg Q6H PRN IV NAUSEA/VOMITING; Start 05/26/18 at 16:30 Acetaminophen (Tylenol Tab) 650 mg Q6H PRN PO .PAIN 1-3 OR TEMP; Start 05/26/18 at 16:30 Acetaminophen (Tylenol Supp) 650 mg Q6H PRN [place] .PAIN 1-3 OR TEMP; Start 05/26/18 at 16:30 Morphine Sulfate (morphine) 2 mg Q4H PRN IV .SEVERE PAIN 7-10 Last administered on 05/31/18at 12:29; Admin Dose 2 MG; Start 05/26/18 at 16:30 Docusate Sodium (Colace) 100 mg Q12H PRN PO .CONSTIPATION; Start 05/26/18 at 16:30 Magnesium Hydroxide (Milk Of Mag) 30 ml DAILY PRN PO .CONSTIPATION; Start 05/26/18 at 16:30 Bisacodyl (Dulcolax) 5 mg DAILY PRN PO .CONSTIPATION; Start 05/26/18 at 16:30 Bisacodyl (Dulcolax Supp) 10 mg DAILY PRN [place] .CONSTIPATION; Start 05/26/18 at 16:30 Zolpidem Tartrate (Ambien) 5 mg QHS PRN PO .INSOMNIA; Start 05/26/18 at 16:30 Lactobacillus Acidophilus/ Rhamnosus (Culturelle) 1 cap BID PO Last administered on 05/31/18at 08:30; Admin Dose 1 CAP; Start 05/26/18 at 21:00 Baclofen (Lioresal) 10 mg TID PO Last administered on 05/31/18at 12:27; Admin Dose 10 MG; Start 05/26/18 at 23:00 Gabapentin (Neurontin) 300 mg TID PO Last administered on 05/31/18 12:27; Admin Dose 300 MG; Start 05/26/18 at 23:00 Miscellaneous Information (Pending Santyl Order For Wound Care) This patient lorenzana... PRN PRN XX WOUND CARE; Start 05/27/18 at 01:00 Collagenase (Santyl) 1 applic PRN PRN TOP PRN; Start 05/27/18 at 05:00 Oxycodone/ Acetaminophen (Endocet (10/ 325)) 1 tab Q3H PRN PO MODERATE PAIN LEVEL 4-6 Last administered on 05/31/18at 13:37; Admin Dose 1 TAB; Start 05/27/18 at 14:00 Albuterol (Ventolin Hfa) 2 puff Q4H RESP THERAPY PRN INH WHEEZING AND SOB; Start 05/28/18 at 18:00 Linezolid (Zyvox) 600 mg BID PO Last administered on 05/31/18at 08:30; Admin Dose 600 MG; Start 05/29/18 at 13:30 Enoxaparin Sodium (Lovenox) 40 mg DAILY SC ; Start 05/31/18 at 09:00 CHRIS TOPETE MD May 31, 2018 13:50
[2018-05-31 14:41] VITALS: BP_SYST 158; BP_SYST 98; BP_DIAS 63; BP_DIAS 77; PULSE 88; PULSE 89; RESP 17; RESP 18
--- NOTE | 2018-05-31 16:36 | CONS ---
Assessment/Plan Assessment/Plan Hospital Course (Demo Recall) No acute changes, awake, looks comfortable Antimicrobials: Zyvox Allergies: Zosyn Physical examination: Well-developed obese middle-aged man in no distress. Head atraumatic normocephalic sclera nonicteric vehicle mucosa pink neck is supple chest rise symmetrical breath sounds clear heart: S1-S2 abdomen soft bowel sounds present extremities with left knee edema erythema and fluctuance on palpation Assessment: 1. 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 Morbid obesity 5. History of spina bifida 6. Hx MRSA col-n Plan: Stable, continue Abx for treatment for OM==> last dose June 29. If Zyvox not approved by insurance may be discharged on high-dose oral Bactrim Consultation Date/Type/Reason Admit Date/Time May 29, 2018 at 08:05 Initial Consult Date Type of Consult id Date/Time of Note DATE: 05/31/18 TIME: 16:35 Exam/Review of Systems Exam Vitals Vital Signs Date Temp Pulse Resp B/P (MAP) Pulse Ox O2 O2 Flow FiO2 Time Delivery Rate 05/31/18 98.2 89 18 158/77 98 14:41 (104) 05/31/18 Room Air 08:08 Intake and Output 05/30/18 05/30/18 05/31/18 1515:00 23:00 07:00 IntakeIntake Total 1200 ml OutputOutput Total 0 ml 0 ml BalanceBalance 1200 ml 0 ml Results Result Diagram: 05/31/18 0520 05/31/18 0520 Results 24hrs Laboratory Tests Test 05/31/18 05:20 White Blood Count 7.4 Red Blood Count 4.48 L Hemoglobin 12.6 L Hematocrit 40.8 L Mean Corpuscular Volume 91.1 Mean Corpuscular Hemoglobin 28.1 L Mean Corpuscular Hemoglobin Concent 30.9 L Red Cell Distribution Width 13.5 Platelet Count 315 Mean Platelet Volume 9.4 Immature Granulocytes % 0.800 H Neutrophils % 48.2 Lymphocytes % 31.8 Monocytes % 10.3 Eosinophils % 8.5 H Basophils % 0.4 Nucleated Red Blood Cells % 0.0 Immature Granulocytes # 0.060 H Neutrophils # 3.6 Lymphocytes # 2.4 Monocytes # 0.8 Eosinophils # 0.6 H Basophils # 0.0 Nucleated Red Blood Cells # 0.0 Sodium Level 143 Potassium Level 4.0 Chloride Level 107 Carbon Dioxide Level 28 Anion Gap 8 Blood Urea Nitrogen 27 H Creatinine 0.54 L Est Glomerular Filtrat Rate mL/min > 60 Glucose Level 107 Calcium Level 8.9 Total Bilirubin 0.0 L Direct Bilirubin 0.00 Indirect Bilirubin 0.0 Aspartate Amino Transf (AST/SGOT) 313 H Alanine Aminotransferase (ALT/SGPT) 661 H Alkaline Phosphatase 203 H Total Protein 7.3 Albumin 3.6 Globulin 3.70 H Albumin/Globulin Ratio 0.97 Hepatitis B Surface Antigen NEGATIVE Hepatitis B Core Total Antibody NEGATIVE Hepatitis C Antibody NEGATIVE Medications Medication Current Medications IV Flush (NS 3 ml) 3 ml PER PROTOCOL IV ; Start 05/26/18 at 16:30 Ondansetron HCl (Zofran Inj) 4 mg Q6H PRN IV NAUSEA/VOMITING; Start 05/26/18 at 16:30 Acetaminophen (Tylenol Tab) 650 mg Q6H PRN PO .PAIN 1-3 OR TEMP; Start 05/26/18 at 16:30 Acetaminophen (Tylenol Supp) 650 mg Q6H PRN [place] .PAIN 1-3 OR TEMP; Start 05/26/18 at 16:30 Morphine Sulfate (morphine) 2 mg Q4H PRN IV .SEVERE PAIN 7-10 Last administered on 05/31/18at 16:33; Admin Dose 2 MG; Start 05/26/18 at 16:30 Docusate Sodium (Colace) 100 mg Q12H PRN PO .CONSTIPATION; Start 05/26/18 at 16:30 Magnesium Hydroxide (Milk Of Mag) 30 ml DAILY PRN PO .CONSTIPATION; Start 05/26/18 at 16:30 Bisacodyl (Dulcolax) 5 mg DAILY PRN PO .CONSTIPATION; Start 05/26/18 at 16:30 Bisacodyl (Dulcolax Supp) 10 mg DAILY PRN [place] .CONSTIPATION; Start 05/26/18 at 16:30 Zolpidem Tartrate (Ambien) 5 mg QHS PRN PO .INSOMNIA; Start 05/26/18 at 16:30 Lactobacillus Acidophilus/ Rhamnosus (Culturelle) 1 cap BID PO Last administered on 05/31/18at 08:30; Admin Dose 1 CAP; Start 05/26/18 at 21:00 Baclofen (Lioresal) 10 mg TID PO Last administered on 05/31/18 12:27; Admin Dose 10 MG; Start 05/26/18 at 23:00 Gabapentin (Neurontin) 300 mg TID PO Last administered on 05/31/18at 12:27; Admin Dose 300 MG; Start 05/26/18 at 23:00 Miscellaneous Information (Pending Santyl Order For Wound Care) This patient lorenzana... PRN PRN XX WOUND CARE; Start 05/27/18 at 01:00 Collagenase (Santyl) 1 applic PRN PRN TOP PRN; Start 05/27/18 at 05:00 Oxycodone/ Acetaminophen (Endocet ()) 1 tab Q3H PRN PO MODERATE PAIN LEVEL 4-6 Last administered on 05/31/18at 13:37; Admin Dose 1 TAB; Start 05/27/18 at 14:00 Albuterol (Ventolin Hfa) 2 puff Q4H RESP THERAPY PRN INH WHEEZING AND SOB; Start 05/28/18 at 18:00 Linezolid (Zyvox) 600 mg BID PO Last administered on 05/31/18at 08:30; Admin Dose 600 MG; Start 05/29/18 at 13:30 Enoxaparin Sodium (Lovenox) 40 mg DAILY SC ; Start 05/31/18 at 09:00 PAT RODRIGUEZ NP May 31, 2018 16:36
[2018-05-31 19:43] VITALS: BP 141/66; PULSE 93; RESP 18
[2018-06-01] MEDS: morphine 2 MG INJ IV PRN ×5 (01:55→21:05)
[2018-06-01 02:02] VITALS: BP 124/90; PULSE 103; RESP 18
[2018-06-01] MEDS: OXYCODONE/ACETAMINOPHEN (10/325) TAB PO PRN ×5 (02:53→21:57)
[2018-06-01 07:58] VITALS: BP 126/67; PULSE 83; RESP 17
[2018-06-01] MEDS: GABAPENTIN 300 MG CAP PO SCH ×3 (08:24→21:07)
[2018-06-01] MEDS: LACTOBACILLUS RHAMNOSUS CAP PO SCH ×2 (08:24→21:08)
[2018-06-01] MEDS: ZYVOX 600 MG TAB PO SCH ×2 (08:24→21:08)
[2018-06-01] MEDS: BACLOFEN 10 MG TAB PO SCH ×3 (08:24→21:08)
[2018-06-01] MEDS: ENOXAPARIN 40 MG/0.4 ML SYG SC SCH (08:25)
--- NOTE | 2018-06-01 10:52 | CONS ---
Assessment/Plan Assessment/Plan Hospital Course (Demo Recall) No acute changes, looks comfortable, no fevers Antimicrobials: Zyvox Allergies: Zosyn Physical examination: Well-developed obese middle-aged man in no distress. Head atraumatic normocephalic sclera nonicteric vehicle mucosa pink neck is supple chest rise symmetrical breath sounds clear heart: S1-S2 abdomen soft bowel sounds present extremities with left knee edema erythema and fluctuance on palpation Assessment: 1. 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 Morbid obesity 5. History of spina bifida 6. Hx MRSA col-n Plan: Remains stable, continue abx for treatment for OM==> last dose June 29. If Zyvox not approved by insurance may be discharged on high-dose oral Bactrim. Podiatry rec-s==> possible plan for skin grafting in the OR setting with likely cast application Consultation Date/Type/Reason Admit Date/Time May 29, 2018 at 08:05 Initial Consult Date Type of Consult id Date/Time of Note DATE: 06/01/18 TIME: 10:51 Exam/Review of Systems Exam Vitals Vital Signs Date Temp Pulse Resp B/P (MAP) Pulse Ox O2 O2 Flow FiO2 Time Delivery Rate 06/01/18 97.9 83 17 126/67 97 07:58 (86) 05/31/18 Room Air 08:08 Intake and Output 05/31/18 05/31/18 06/01/18 1515:00 23:00 07:00 IntakeIntake Total 620 ml 500 ml OutputOutput Total 100 ml 50 ml BalanceBalance 620 ml 400 ml -50 ml Results Result Diagram: 05/31/18 0505/31/18 05 Medications Medication Current Medications IV Flush (NS 3 ml) 3 ml PER PROTOCOL IV ; Start 05/26/18 at 16:30 Ondansetron HCl (Zofran Inj) 4 mg Q6H PRN IV NAUSEA/VOMITING; Start 05/26/18 at 16:30 Acetaminophen (Tylenol Tab) 650 mg Q6H PRN PO .PAIN 1-3 OR TEMP; Start 05/26/18 at 16:30 Acetaminophen (Tylenol Supp) 650 mg Q6H PRN [place] .PAIN 1-3 OR TEMP; Start 05/02 09/16 at 16:30 Morphine Sulfate (morphine) 2 mg Q4H PRN IV .SEVERE PAIN 7-10 Last administered on 06/01/18 08:24; Admin Dose 2 MG; Start 05/26/18 at 16:30 Docusate Sodium (Colace) 100 mg Q12H PRN PO .CONSTIPATION; Start 05/26/18 at 16:30 Magnesium Hydroxide (Milk Of Mag) 30 ml DAILY PRN PO .CONSTIPATION; Start 05/26/18 at 16:30 Bisacodyl (Dulcolax) 5 mg DAILY PRN PO .CONSTIPATION; Start 05/26/18 at 16:30 Bisacodyl (Dulcolax Supp) 10 mg DAILY PRN [place] .CONSTIPATION; Start 05/26/18 at 16:30 Zolpidem Tartrate (Ambien) 5 mg QHS PRN PO .INSOMNIA; Start 05/26/18 at 16:30 Lactobacillus Acidophilus/ Rhamnosus (Culturelle) 1 cap BID PO Last administered on 06/01/18 08:24; Admin Dose 1 CAP; Start 05/26/18 at 21:00 Baclofen (Lioresal) 10 mg TID PO Last administered on 06/01/18 08:24; Admin Dose 10 MG; Start 05/26/18 at 23:00 Gabapentin (Neurontin) 300 mg TID PO Last administered on 06/01/18 08:24; Admin Dose 300 MG; Start 05/26/18 at 23:00 Miscellaneous Information (Pending Santyl Order For Wound Care) This patient lorenzana... PRN PRN XX WOUND CARE; Start 05/27/18 at 01:00 Collagenase (Santyl) 1 applic PRN PRN TOP PRN; Start 05/27/18 at 05:00 Oxycodone/ Acetaminophen (Endocet (10/ 325)) 1 tab Q3H PRN PO MODERATE PAIN LEVEL 4-6 Last administered on 06/01/18 10:10; Admin Dose 1 TAB; Start 05/27/18 at 14:00 Albuterol (Ventolin Hfa) 2 puff Q4H RESP THERAPY PRN INH WHEEZING AND SOB; Start 05/28/18 at 18:00 Linezolid (Zyvox) 600 mg BID PO Last administered on 06/01/18 08:24; Admin Dose 600 MG; Start 05/29/18 at 13:30 Enoxaparin Sodium (Lovenox) 40 mg DAILY SC ; Start 05/31/18 at 09:00 PAT RODRIGUEZ NP Jun 01, 2018 10:52
[2018-06-01 14:58] VITALS: BP 137/80; PULSE 94; RESP 18
--- NOTE | 2018-06-01 16:41 | PN ---
Date/Time of Note Date/Time of Note DATE: 06/01/18 TIME: 16:41 Assessment/Plan VTE Prophylaxis Risk score (from Nsg)>0 risk: 11 SCD applied (from Ns): Yes Pharmacological prophylaxis: heparin Lines/Catheters IV Catheter Type (from Nrsg): Central Line Central line still needed: Yes Assessment/Plan Hospital Course 1. Subacute rt ankle OM, stable cont vanco vs Linezolid for 7more wks. sp lt subclavian. Ho port infection? Linezolid coverage pending/ form signed. Debridement tomorrow. 2. Sacral decubitus history. Continue offload although patient is not adherent to medical management 3. Spina bifida 4. Ftt; dc to subacute with central line if feasible. vs home w po's/ Vac. 5. Tobacco abuse/marijuana abuse 6. Nonadherence 7. Abnormal LFTs asymptomatic, likely due to hepatic steatosis, stable observe Result Diagram: 05/31/18 0520 05/31/18 0520 Subjective 24 Hr Interval Summary Free Text/Dictation Doing well, no complaints Exam/Review of Systems Exam Vitals Vital Signs Date Temp Pulse Resp B/P (MAP) Pulse Ox O2 O2 Flow FiO2 Time Delivery Rate 06/01/18 97.7 94 18 137/80 95 14:58 (99) 05/31/18 Room Air 08:08 Intake and Output 05/31/18 05/31/18 06/01/18 1515:00 23:00 07:00 IntakeIntake Total 620 ml 500 ml OutputOutput Total 100 ml 50 ml BalanceBalance 620 ml 400 ml -50 ml Constitutional: alert, oriented Psych: no complaints Respiratory: clear to auscultation, normal air movement Cardiovascular: regular rate and rhythm, nl pulses Gastrointestinal: soft, nl liver, spleen, non-tender Medications Medication Current Medications IV Flush (NS 3 ml) 3 ml PER PROTOCOL IV ; Start 05/26/18 at 16:30 Ondansetron HCl (Zofran Inj) 4 mg Q6H PRN IV NAUSEA/VOMITING; Start 05/26/18 at 16:30 Acetaminophen (Tylenol Tab) 650 mg Q6H PRN PO .PAIN 1-3 OR TEMP; Start 05/26/18 at 16:30 Acetaminophen (Tylenol Supp) 650 mg Q6H PRN [place] .PAIN 1-3 OR TEMP; Start 05/26/18 at 16:30 Morphine Sulfate (morphine) 2 mg Q4H PRN IV .SEVERE PAIN 7-10 Last administered on 06/01/18 13:07; Admin Dose 2 MG; Start 05/26/18 at 16:30 Docusate Sodium (Colace) 100 mg Q12H PRN PO .CONSTIPATION; Start 05/26/18 at 16:30 Magnesium Hydroxide (Milk Of Mag) 30 ml DAILY PRN PO .CONSTIPATION; Start 05/26/18 at 16:30 Bisacodyl (Dulcolax) 5 mg DAILY PRN PO .CONSTIPATION; Start 05/26/18 at 16:30 Bisacodyl (Dulcolax Supp) 10 mg DAILY PRN [place] .CONSTIPATION; Start 05/26/18 at 16:30 Zolpidem Tartrate (Ambien) 5 mg QHS PRN PO .INSOMNIA; Start 05/26/18 at 16:30 Lactobacillus Acidophilus/ Rhamnosus (Culturelle) 1 cap BID PO Last administered on 06/01/18 08:24; Admin Dose 1 CAP; Start 05/26/18 at 21:00 Baclofen (Lioresal) 10 mg TID PO Last administered on 06/01/18 13:07; Admin Dose 10 MG; Start 05/26/18 at 23:00 Gabapentin (Neurontin) 300 mg TID PO Last administered on 06/01/18 13:07; Admin Dose 300 MG; Start 05/26/18 at 23:00 Miscellaneous Information (Pending Santyl Order For Wound Care) This patient lorenzana... PRN PRN XX WOUND CARE; Start 05/27/18 at 01:00 Collagenase (Santyl) 1 applic PRN PRN TOP PRN; Start 05/27/18 at 05:00 Oxycodone/ Acetaminophen (Endocet (10/ 325)) 1 tab Q3H PRN PO MODERATE PAIN LEVEL 4-6 Last administered on 06/01/18 14:34; Admin Dose 1 TAB; Start 05/27/18 at 14:00 Albuterol (Ventolin Hfa) 2 puff Q4H RESP THERAPY PRN INH WHEEZING AND SOB; Start 05/28/18 at 18:00 Linezolid (Zyvox) 600 mg BID PO Last administered on 06/01/18 08:24; Admin Dose 600 MG; Start 05/29/18 at 13:30 Enoxaparin Sodium (Lovenox) 40 mg DAILY SC ; Start 05/31/18 at 09:00 KASIE PARK MD Jun 01, 2018 16:41
--- NOTE | 2018-06-01 19:09 | PN ---
Date/Time of Note Date/Time of Note DATE: 06/01/18 TIME: 19:09 Assessment/Plan VTE Prophylaxis Risk score (from Nsg)>0 risk: 11 SCD applied (from Nsg): Yes Pharmacological prophylaxis: other Lines/Catheters IV Catheter Type (from Nrsg): Central Line Central line still needed: Yes Assessment/Plan Assessment/Plan RLE neuropathic ulcer RLE wound dehiscence RLE osteomyelitis Spina bifida Peripheral neuropathy Plan: Recommended wound VAC to be applied to right lower extremity ulceration site. Patient will need to continue with IV abx per ID recommendations. Wound VAC to be changed every 3 days. Possible plan for skin grafting in the OR setting with likely cast application. Offload heels with pillows. Planning for OR procedure Friday06/05/18 Result Diagram: 05/31/1851905/31/18519 Subjective 24 Hr Interval Summary Free Text/Dictation No acute events overnight. Exam/Review of Systems Exam Vitals Vital Signs Date Temp Pulse Resp B/P (MAP) Pulse Ox O2 O2 Flow FiO2 Time Delivery Rate 06/01/18 97.7 94 18 137/80 95 14:58 (99) 05/31/18 Room Air 08:08 Intake and Output 05/31/18 05/31/18 06/01/18 1515:00 23:00 07:00 IntakeIntake Total 620 ml 500 ml OutputOutput Total 100 ml 50 ml BalanceBalance 620 ml 400 ml -50 ml Exam Pedal pulses palpable Right medial ulceration site 4.5 x 3.5 x 0.6cm, probes to bone, no purulence expressed. No proximal streaking noted. Wound base fibrogranular. Absent protective sensations absent muscle strength Medications Medication Current Medications IV Flush (NS 3 ml) 3 ml PER PROTOCOL IV ; Start 05/26/18 at 16:30 Ondansetron HCl (Zofran Inj) 4 mg Q6H PRN IV NAUSEA/VOMITING; Start 05/26/18 at 16:30 Acetaminophen (Tylenol Tab) 650 mg Q6H PRN PO .PAIN 1-3 OR TEMP; Start 05/26/18 at 16:30 Acetaminophen (Tylenol Supp) 650 mg Q6H PRN [place] .PAIN 1-3 OR TEMP; Start 05/26/18 at 16:30 Morphine Sulfate (morphine) 2 mg Q4H PRN IV .SEVERE PAIN 7-10 Last administered on 06/01/18 17:05; Admin Dose 2 MG; Start 05/26/18 at 16:30 Docusate Sodium (Colace) 100 mg Q12H PRN PO .CONSTIPATION; Start 05/26/18 at 16:30 Magnesium Hydroxide (Milk Of Mag) 30 ml DAILY PRN PO .CONSTIPATION; Start 05/26/18 at 16:30 Bisacodyl (Dulcolax) 5 mg DAILY PRN PO .CONSTIPATION; Start 05/26/18 at 16:30 Bisacodyl (Dulcolax Supp) 10 mg DAILY PRN [place] .CONSTIPATION; Start 05/26/18 at 16:30 Zolpidem Tartrate (Ambien) 5 mg QHS PRN PO .INSOMNIA; Start 05/26/18 at 16:30 Lactobacillus Acidophilus/ Rhamnosus (Culturelle) 1 cap BID PO Last administered on 06/01/18 08:24; Admin Dose 1 CAP; Start 05/26/18 at 21:00 Baclofen (Lioresal) 10 mg TID PO Last administered on 06/01/18 13:07; Admin Dose 10 MG; Start 05/26/18 at 23:00 Gabapentin (Neurontin) 300 mg TID PO Last administered on 06/01/18 13:07; Admin Dose 300 MG; Start 05/26/18 at 23:00 Miscellaneous Information (Pending Santyl Order For Wound Care) This patient lorenzana... PRN PRN XX WOUND CARE; Start 05/27/18 at 01:00 Collagenase (Santyl) 1 applic PRN PRN TOP PRN; Start 05/27/18 at 05:00 Oxycodone/ Acetaminophen (Endocet (10/ 325)) 1 tab Q3H PRN PO MODERATE PAIN LEVEL 4-6 Last administered on 06/01/18 17:47; Admin Dose 1 TAB; Start 05/27/18 at 14:00 Albuterol (Ventolin Hfa) 2 puff Q4H RESP THERAPY PRN INH WHEEZING AND SOB; Start 05/28/18 at 18:00 Linezolid (Zyvox) 600 mg BID PO Last administered on 06/01/18 08:24; Admin Dose 600 MG; Start 05/29/18 at 13:30 Enoxaparin Sodium (Lovenox) 40 mg DAILY SC ; Start 05/31/18 at 09:00 LUCINA RINALDI DPM Jun 01, 2018 19:09
[2018-06-01 20:00] VITALS: BP 112/59; PULSE 83; RESP 18
[2018-06-02] MEDS: morphine 2 MG INJ IV PRN ×6 (01:06→21:33)
[2018-06-02 02:00] VITALS: BP 119/69; PULSE 96; RESP 19
[2018-06-02] MEDS: OXYCODONE/ACETAMINOPHEN (10/325) TAB PO PRN ×5 (06:44→22:40)
[2018-06-02 08:00] VITALS: BP_SYST 102; BP_SYST 135; BP_DIAS 64; BP_DIAS 88; PULSE 100; PULSE 78; RESP 20
[2018-06-02] MEDS: ENOXAPARIN 40 MG/0.4 ML SYG SC SCH (09:00)
[2018-06-02] MEDS: LACTOBACILLUS RHAMNOSUS CAP PO SCH ×2 (09:07→21:34)
[2018-06-02] MEDS: GABAPENTIN 300 MG CAP PO SCH ×3 (09:07→21:34)
[2018-06-02] MEDS: BACLOFEN 10 MG TAB PO SCH ×3 (09:07→21:34)
[2018-06-02] MEDS: ZYVOX 600 MG TAB PO SCH ×2 (09:07→21:34)
--- NOTE | 2018-06-02 13:15 | CONS ---
Assessment/Plan Assessment/Plan Hospital Course (Demo Recall) No acute changes Antimicrobials: Zyvox Allergies: Zosyn Physical examination: Well-developed obese middle-aged man in no distress. Head atraumatic normocephalic sclera nonicteric vehicle mucosa pink neck is supple chest rise symmetrical breath sounds clear heart: S1-S2 abdomen soft bowel sounds present extremities with left knee edema erythema and fluctuance on palpation Assessment: 1. 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 Morbid obesity 5. History of spina bifida 6. Hx MRSA col-n Plan: Remains stable, continue abx for treatment for OM==> last dose June 29. If Zyvox not approved by insurance may be discharged on high-dose oral Bactrim. Podiatry rec-s==> possible plan for skin grafting in the OR setting with likely cast application Consultation Date/Type/Reason Admit Date/Time May 29, 2018 at 08:05 Initial Consult Date Type of Consult id Date/Time of Note DATE: 06/02/18 TIME: 13:14 Exam/Review of Systems Exam Vitals Vital Signs Date Temp Pulse Resp B/P (MAP) Pulse Ox O2 O2 Flow FiO2 Time Delivery Rate 06/02/18 97.8 100 20 135/88 96 08:00 (104) 05/31/18 Room Air 08:08 Intake and Output 06/01/18 06/01/18 06/02/18 1515:00 23:00 07:00 IntakeIntake Total 720 ml 240 ml OutputOutput Total 0 ml BalanceBalance 720 ml 240 ml 0 ml Results Result Diagram: 05/31/18 0520 05/31/18 0520 Medications Medication Current Medications IV Flush (NS 3 ml) 3 ml PER PROTOCOL IV ; Start 05/26/18 at 16:30 Ondansetron HCl (Zofran Inj) 4 mg Q6H PRN IV NAUSEA/VOMITING; Start 05/26/18 at 16:30 Acetaminophen (Tylenol Tab) 650 mg Q6H PRN PO .PAIN 1-3 OR TEMP; Start 05/26/18 at 16:30 Acetaminophen (Tylenol Supp) 650 mg Q6H PRN [place] .PAIN 1-3 OR TEMP; Start 05/26/18 at 16:30 Morphine Sulfate (morphine) 2 mg Q4H PRN IV .SEVERE PAIN 7-10 Last administered on 06/02/18 09:38; Admin Dose 2 MG; Start 05/26/18 at 16:30 Docusate Sodium (Colace) 100 mg Q12H PRN PO .CONSTIPATION; Start 05/26/18 at 16:30 Magnesium Hydroxide (Milk Of Mag) 30 ml DAILY PRN PO .CONSTIPATION; Start 05/26/18 at 16:30 Bisacodyl (Dulcolax) 5 mg DAILY PRN PO .CONSTIPATION; Start 05/26/18 at 16:30 Bisacodyl (Dulcolax Supp) 10 mg DAILY PRN [place] .CONSTIPATION; Start 05/26/18 at 16:30 Zolpidem Tartrate (Ambien) 5 mg QHS PRN PO .INSOMNIA; Start 05/26/18 at 16:30 Lactobacillus Acidophilus/ Rhamnosus (Culturelle) 1 cap BID PO Last administered on 06/02/18at 09:07; Admin Dose 1 CAP; Start 05/26/18 at 21:00 Baclofen (Lioresal) 10 mg TID PO Last administered on 06/02/18 09:07; Admin Dose 10 MG; Start 05/26/18 at 23:00 Gabapentin (Neurontin) 300 mg TID PO Last administered on 06/02/18 09:07; Admin Dose 300 MG; Start 05/26/18 at 23:00 Miscellaneous Information (Pending Santyl Order For Wound Care) This patient lorenzana... PRN PRN XX WOUND CARE; Start 05/27/18 at 01:00 Collagenase (Santyl) 1 applic PRN PRN TOP PRN; Start 05/27/18 at 05:00 Oxycodone/ Acetaminophen (Endocet (10/ 325)) 1 tab Q3H PRN PO MODERATE PAIN LEVEL 4-6 Last administered on 06/02/18at 10:24; Admin Dose 1 TAB; Start 05/27/18 at 14:00 Albuterol (Ventolin Hfa) 2 puff Q4H RESP THERAPY PRN INH WHEEZING AND SOB; Start 05/28/18 at 18:00 Linezolid (Zyvox) 600 mg BID PO Last administered on 06/02/18at 09:07; Admin Dose 600 MG; Start 05/29/18 at 13:30 Enoxaparin Sodium (Lovenox) 40 mg DAILY SC ; Start 05/31/18 at 09:00 PAT RODRIGUEZ NP Jun 02, 2018 13:15
[2018-06-02 14:00] VITALS: BP 140/65; PULSE 75; RESP 18
--- NOTE | 2018-06-02 14:10 | PN ---
Date/Time of Note Date/Time of Note DATE: 06/02/18 TIME: 14:09 Assessment/Plan VTE Prophylaxis Risk score (from Nsg)>0 risk: 6 SCD applied (from Nsg): Yes Pharmacological prophylaxis: heparin Lines/Catheters IV Catheter Type (from Nrsg): Central Line Central line still needed: Yes Assessment/Plan Hospital Course 28 yo male with spina bifida leading to paraplegia presents wtih OM of his foot OM foot: - abx per ID - Plan for surgery Friday - Wound vac Sacral decubitus history. Continue offload although patient is not adherent to medical management Spina bifida Abnormal LFTs asymptomatic, likely due to hepatic steatosis, stable observe Result Diagram: 05/31/1851905/31/18519 Subjective 24 Hr Interval Summary Free Text/Dictation No change to clinical status Awaiting OR Friday Exam/Review of Systems Exam Vitals Vital Signs Date Temp Pulse Resp B/P (MAP) Pulse Ox O2 O2 Flow FiO2 Time Delivery Rate 06/02/18 97.8 100 20 135/88 96 08:00 (104) 05/31/18 Room Air 08:08 Intake and Output 06/01/18 06/01/18 06/02/18 1515:00 23:00 07:00 IntakeIntake Total 720 ml 240 ml OutputOutput Total 0 ml BalanceBalance 720 ml 240 ml 0 ml Constitutional: alert, oriented, well developed Psych: no complaints, nl mood/affect Neck: supple, non-tender Respiratory: clear to auscultation, normal air movement Cardiovascular: regular rate and rhythm, nl pulses Gastrointestinal: soft, nl liver, spleen, non-tender Medications Medication Current Medications IV Flush (NS 3 ml) 3 ml PER PROTOCOL IV ; Start 05/26/18 at 16:30 Ondansetron HCl (Zofran Inj) 4 mg Q6H PRN IV NAUSEA/VOMITING; Start 05/26/18 at 16:30 Acetaminophen (Tylenol Tab) 650 mg Q6H PRN PO .PAIN 1-3 OR TEMP; Start 05/26/18 at 16:30 Acetaminophen (Tylenol Supp) 650 mg Q6H PRN [place] .PAIN 1-3 OR TEMP; Start 05/26/18 at 16:30 Morphine Sulfate (morphine) 2 mg Q4H PRN IV .SEVERE PAIN 7-10 Last administered on 06/02/18 13:31; Admin Dose 2 MG; Start 05/26/18 at 16:30 Docusate Sodium (Colace) 100 mg Q12H PRN PO .CONSTIPATION; Start 05/26/18 at 16:30 Magnesium Hydroxide (Milk Of Mag) 30 ml DAILY PRN PO .CONSTIPATION; Start 05/26/18 at 16:30 Bisacodyl (Dulcolax) 5 mg DAILY PRN PO .CONSTIPATION; Start 05/26/18 at 16:30 Bisacodyl (Dulcolax Supp) 10 mg DAILY PRN [place] .CONSTIPATION; Start 05/26/18 at 16:30 Zolpidem Tartrate (Ambien) 5 mg QHS PRN PO .INSOMNIA; Start 05/26/18 at 16:30 Lactobacillus Acidophilus/ Rhamnosus (Culturelle) 1 cap BID PO Last administered on 06/02/18at 09:07; Admin Dose 1 CAP; Start 05/26/18 at 21:00 Baclofen (Lioresal) 10 mg TID PO Last administered on 06/02/18 13:31; Admin Dose 10 MG; Start 05/26/18 at 23:00 Gabapentin (Neurontin) 300 mg TID PO Last administered on 06/02/18 13:31; Admin Dose 300 MG; Start 05/26/18 at 23:00 Miscellaneous Information (Pending Santyl Order For Wound Care) This patient lorenzana... PRN PRN XX WOUND CARE; Start 05/27/18 at 01:00 Collagenase (Santyl) 1 applic PRN PRN TOP PRN; Start 05/27/18 at 05:00 Oxycodone/ Acetaminophen (Endocet (10/ 325)) 1 tab Q3H PRN PO MODERATE PAIN LEVEL 4-6 Last administered on 06/02/18at 10:24; Admin Dose 1 TAB; Start 05/27/18 at 14:00 Albuterol (Ventolin Hfa) 2 puff Q4H RESP THERAPY PRN INH WHEEZING AND SOB; Start 05/28/18 at 18:00 Linezolid (Zyvox) 600 mg BID PO Last administered on 06/02/18 09:07; Admin Dose 600 MG; Start 05/29/18 at 13:30 Enoxaparin Sodium (Lovenox) 40 mg DAILY SC ; Start 05/31/18 at 09:00 KASIE PARK MD Jun 02, 2018 14:10
[2018-06-02 20:19] VITALS: BP 117/55; PULSE 105; RESP 16
[2018-06-03] MEDS: morphine LIQ (10 MG/5 ML) CUP PO PRN ×2 (01:32→05:30)
[2018-06-03 02:56] VITALS: BP 134/71; PULSE 92; RESP 16
[2018-06-03] MEDS: OXYCODONE/ACETAMINOPHEN (10/325) TAB PO PRN ×5 (06:29→22:00)
[2018-06-03 08:16] VITALS: BP 130/66; PULSE 97; RESP 18
[2018-06-03] MEDS: ENOXAPARIN 40 MG/0.4 ML SYG SC SCH ×2 (09:00→09:16)
[2018-06-03] MEDS: GABAPENTIN 300 MG CAP PO SCH ×3 (09:15→20:49)
[2018-06-03] MEDS: BACLOFEN 10 MG TAB PO SCH ×3 (09:15→20:49)
[2018-06-03] MEDS: LACTOBACILLUS RHAMNOSUS CAP PO SCH ×2 (09:15→20:49)
[2018-06-03] MEDS: ZYVOX 600 MG TAB PO SCH ×2 (09:15→20:50)
--- NOTE | 2018-06-03 11:07 | CONS ---
Assessment/Plan Assessment/Plan Hospital Course (Demo Recall) No acute changes afebrile, nad Antimicrobials: Zyvox Allergies: Zosyn Physical examination: Well-developed obese middle-aged man in no distress. Head atraumatic normocephalic sclera nonicteric vehicle mucosa pink neck is supple chest rise symmetrical breath sounds clear heart: S1-S2 abdomen soft bowel sounds present extremities with left knee edema erythema and fluctuance on palpation Assessment: 1. 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 Morbid obesity 5. History of spina bifida 6. Hx MRSA col-n Plan: Remains stable, continue abx for treatment for OM==> last dose June 29. If Zyvox not approved by insurance may be discharged on high-dose oral Bactrim. Podiatry rec-s==> plan for skin grafting in the OR setting with likely cast application Consultation Date/Type/Reason Admit Date/Time May 29, 2018 at 08:05 Initial Consult Date Type of Consult id Date/Time of Note DATE: 06/03/18 TIME: 11:07 Exam/Review of Systems Exam Vitals Vital Signs Date Temp Pulse Resp B/P (MAP) Pulse Ox O2 O2 Flow FiO2 Time Delivery Rate 06/03/18 98.2 97 18 130/66 93 08:16 (87) 05/31/18 Room Air 08:08 Intake and Output 06/02/18 06/02/18 06/03/18 1515:00 23:00 07:00 IntakeIntake Total 590 ml 1070 ml BalanceBalance 590 ml 1070 ml Results Result Diagram: 05/31/18 0520 05/31/18519 Medications Medication Current Medications IV Flush (NS 3 ml) 3 ml PER PROTOCOL IV ; Start 05/26/18 at 16:30 Ondansetron HCl (Zofran Inj) 4 mg Q6H PRN IV NAUSEA/VOMITING; Start 05/26/18 at 16:30 Acetaminophen (Tylenol Tab) 650 mg Q6H PRN PO .PAIN 1-3 OR TEMP; Start 05/26/18 at 16:30 Acetaminophen (Tylenol Supp) 650 mg Q6H PRN [place] .PAIN 1-3 OR TEMP; Start 05/26/18 at 16:30 Docusate Sodium (Colace) 100 mg Q12H PRN PO .CONSTIPATION; Start 05/26/18 at 16:30 Magnesium Hydroxide (Milk Of Mag) 30 ml DAILY PRN PO .CONSTIPATION; Start 05/26/18 at 16:30 Bisacodyl (Dulcolax) 5 mg DAILY PRN PO .CONSTIPATION; Start 05/26/18 at 16:30 Bisacodyl (Dulcolax Supp) 10 mg DAILY PRN [place] .CONSTIPATION; Start 05/26/18 at 16:30 Zolpidem Tartrate (Ambien) 5 mg QHS PRN PO .INSOMNIA; Start 05/26/18 at 16:30 Lactobacillus Acidophilus/ Rhamnosus (Culturelle) 1 cap BID PO Last administered on 06/03/18at 09:15; Admin Dose 1 CAP; Start 05/26/18 at 21:00 Baclofen (Lioresal) 10 mg TID PO Last administered on 06/03/18at 09:15; Admin Dose 10 MG; Start 05/26/18 at 23:00 Gabapentin (Neurontin) 300 mg TID PO Last administered on 06/03/18at 09:15; Admin Dose 300 MG; Start 05/26/18 at 23:00 Miscellaneous Information (Pending Santyl Order For Wound Care) This patient lorenzana... PRN PRN XX WOUND CARE; Start 05/27/18 at 01:00 Collagenase (Santyl) 1 applic PRN PRN TOP PRN; Start 05/27/18 at 05:00 Oxycodone/ Acetaminophen (Endocet (10/ 325)) 1 tab Q3H PRN PO MODERATE PAIN LEVEL 4-6 Last administered on 06/03/18at 09:47; Admin Dose 1 TAB; Start 05/27/18 at 14:00 Albuterol (Ventolin Hfa) 2 puff Q4H RESP THERAPY PRN INH WHEEZING AND SOB; Start 05/28/18 at 18:00 Linezolid (Zyvox) 600 mg BID PO Last administered on 06/03/18at 09:15; Admin Dose 600 MG; Start 05/29/18 at 13:30 Enoxaparin Sodium (Lovenox) 40 mg DAILY SC ; Start 05/31/18 at 09:00 Morphine Sulfate (morphine) 6 mg Q4H PRN PO SEVERE PAIN LEVEL 7-10 Last administered on 06/03/18at 05:30; Admin Dose 6 MG; Start 06/02/18 at 23:30 PAT RODRIGUEZ NP Jun 03, 2018 11:07
[2018-06-03 14:45] VITALS: BP 137/69; PULSE 93; RESP 18
--- NOTE | 2018-06-03 15:27 | PN ---
Date/Time of Note Date/Time of Note DATE: 06/03/18 TIME: 15:27 Assessment/Plan VTE Prophylaxis Risk score (from Nsg)>0 risk: 10 SCD applied (from Nsg): Yes Pharmacological prophylaxis: heparin Lines/Catheters IV Catheter Type (from Nrsg): Central Line Central line still needed: Yes Assessment/Plan Hospital Course 28 yo male with spina bifida leading to paraplegia presents wtih OM of his foot OM foot: - abx per ID - Plan for surgery Friday - Wound vac Sacral decubitus history. Continue offload although patient is not adherent to medical management Spina bifida Abnormal LFTs asymptomatic, likely due to hepatic steatosis, stable observe Result Diagram: 05/31/1851905/31/18519 Subjective 24 Hr Interval Summary Free Text/Dictation Requests further pain control than PO morphine Otherwise comfortable Exam/Review of Systems Exam Vitals Vital Signs Date Temp Pulse Resp B/P (MAP) Pulse Ox O2 O2 Flow FiO2 Time Delivery Rate 06/03/18 98.2 93 18 137/69 96 14:45 (91) 05/31/18 Room Air 08:08 Intake and Output 06/02/18 06/02/18 06/03/18 1515:00 23:00 07:00 IntakeIntake Total 590 ml 1070 ml BalanceBalance 590 ml 1070 ml Constitutional: alert, oriented, well developed Psych: no complaints, nl mood/affect Head: normocephalic, atraumatic Eyes: nl conjunctiva, EOMI, nl lids, nl sclera, PERRL ENMT: nl external ears & nose, nl lips & teeth, nl nasal mucosa & septum Neck: supple, non-tender Respiratory: clear to auscultation, normal air movement Cardiovascular: regular rate and rhythm, nl pulses Gastrointestinal: soft, nl liver, spleen, non-tender Musculoskeletal: nl extremities to inspection, nl gait and stance Extremities: normal pulses Neurological: [employer] WREST[employer] II-XII intact, nl mental status, nl speech, nl strength Skin: nl turgor; No rash or lesions Lymph: nl lymph nodes Medications Medication Current Medications IV Flush (NS 3 ml) 3 ml PER PROTOCOL IV ; Start 05/26/18 at 16:30 Ondansetron HCl (Zofran Inj) 4 mg Q6H PRN IV NAUSEA/VOMITING; Start 05/26/18 at 16:30 Acetaminophen (Tylenol Tab) 650 mg Q6H PRN PO .PAIN 1-3 OR TEMP; Start 05/26/18 at 16:30 Acetaminophen (Tylenol Supp) 650 mg Q6H PRN [place] .PAIN 1-3 OR TEMP; Start 05/26/18 at 16:30 Docusate Sodium (Colace) 100 mg Q12H PRN PO .CONSTIPATION; Start 05/26/18 at 16:30 Magnesium Hydroxide (Milk Of Mag) 30 ml DAILY PRN PO .CONSTIPATION; Start 05/26/18 at 16:30 Bisacodyl (Dulcolax) 5 mg DAILY PRN PO .CONSTIPATION; Start 05/26/18 at 16:30 Bisacodyl (Dulcolax Supp) 10 mg DAILY PRN [place] .CONSTIPATION; Start 05/26/18 at 16:30 Zolpidem Tartrate (Ambien) 5 mg QHS PRN PO .INSOMNIA; Start 05/26/18 at 16:30 Lactobacillus Acidophilus/ Rhamnosus (Culturelle) 1 cap BID PO Last administered on 06/03/18at 09:15; Admin Dose 1 CAP; Start 05/26/18 at 21:00 Baclofen (Lioresal) 10 mg TID PO Last administered on 06/03/18at 12:20; Admin Dose 10 MG; Start 05/26/18 at 23:00 Gabapentin (Neurontin) 300 mg TID PO Last administered on 06/03/18at 12:20; Admin Dose 300 MG; Start 05/26/18 at 23:00 Miscellaneous Information (Pending Santyl Order For Wound Care) This patient lorenzana... PRN PRN XX WOUND CARE; Start 05/27/18 at 01:00 Collagenase (Santyl) 1 applic PRN PRN TOP PRN; Start 05/27/18 at 05:00 Oxycodone/ Acetaminophen (Endocet (10/ 325)) 1 tab Q3H PRN PO MODERATE PAIN LEVEL 4-6 Last administered on 06/03/18at 12:54; Admin Dose 1 TAB; Start 05/27/18 at 14:00 Albuterol (Ventolin Hfa) 2 puff Q4H RESP THERAPY PRN INH WHEEZING AND SOB; Start 05/28/18 at 18:00 Linezolid (Zyvox) 600 mg BID PO Last administered on 06/03/18at 09:15; Admin Dose 600 MG; Start 05/29/18 at 13:30 Enoxaparin Sodium (Lovenox) 40 mg DAILY SC ; Start 05/31/18 at 09:00 Morphine Sulfate (morphine) 6 mg Q4H PRN PO SEVERE PAIN LEVEL 7-10 Last administered on 06/03/18at 05:30; Admin Dose 6 MG; Start 06/02/18 at 23:30 KASIE PARK MD Jun 03, 2018 15:27
[2018-06-03] MEDS ORDERED: NAPROXEN 500 MG TAB PO PRN (15:30)
[2018-06-03] MEDS: oxyCODONE 5 MG TAB PO PRN ×2 (16:10→20:50)
[2018-06-03 20:53] VITALS: BP 141/81; PULSE 122; RESP 18
[2018-06-04 02:53] VITALS: BP 126/59; PULSE 94; RESP 16
[2018-06-04 08:00] VITALS: BP 140/78; PULSE 100; RESP 20
[2018-06-04] MEDS: LACTOBACILLUS RHAMNOSUS CAP PO SCH ×2 (08:31→20:58)
[2018-06-04] MEDS: GABAPENTIN 300 MG CAP PO SCH ×3 (08:31→20:58)
[2018-06-04] MEDS: BACLOFEN 10 MG TAB PO SCH ×3 (08:31→20:58)
[2018-06-04] MEDS: ZYVOX 600 MG TAB PO SCH ×2 (08:31→20:59)
[2018-06-04] MEDS: oxyCODONE 5 MG TAB PO PRN ×4 (08:34→20:59)
[2018-06-04] MEDS: ENOXAPARIN 40 MG/0.4 ML SYG SC SCH (08:37)
[2018-06-04] MEDS: OXYCODONE/ACETAMINOPHEN (10/325) TAB PO PRN ×4 (09:55→23:01)
--- NOTE | 2018-06-04 10:56 | CONS ---
Assessment/Plan Assessment/Plan Hospital Course (Demo Recall) Feels good, nad, no fevers Antimicrobials: Zyvox Allergies: Zosyn Physical examination: Well-developed obese middle-aged man in no distress. Head atraumatic normocephalic sclera nonicteric vehicle mucosa pink neck is supple chest rise symmetrical breath sounds clear heart: S1-S2 abdomen soft bowel sounds present extremities with left knee edema erythema and fluctuance on palpation Assessment: 1. 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 Morbid obesity 5. History of spina bifida 6. Hx MRSA col-n Plan: Remains stable, plan for skin grafting in the OR setting with likely cast application on Friday, continue abx for treatment for OM==> last dose June 29. If Zyvox not approved by insurance may be discharged on high-dose oral Bactrim. Consultation Date/Type/Reason Admit Date/Time May 29, 2018 at 08:05 Initial Consult Date Type of Consult id Date/Time of Note DATE: 06/04/18 TIME: 10:55 Exam/Review of Systems Exam Vitals Vital Signs Date Temp Pulse Resp B/P (MAP) Pulse Ox O2 O2 Flow FiO2 Time Delivery Rate 06/04/18 98.8 100 20 140/78 96 08:00 (98) 05/31/18 Room Air 08:08 Intake and Output 06/03/18 06/03/18 06/04/18 1515:00 23:00 07:00 IntakeIntake Total 720 ml 240 ml BalanceBalance 720 ml 240 ml Results Result Diagram: 05/31/1851905/31/18 0520 Medications Medication Current Medications IV Flush (NS 3 ml) 3 ml PER PROTOCOL IV ; Start 05/26/18 at 16:30 Ondansetron HCl (Zofran Inj) 4 mg Q6H PRN IV NAUSEA/VOMITING; Start 05/26/18 at 16:30 Acetaminophen (Tylenol Tab) 650 mg Q6H PRN PO .PAIN 1-3 OR TEMP; Start 05/26/18 at 16:30 Acetaminophen (Tylenol Supp) 650 mg Q6H PRN [place] .PAIN 1-3 OR TEMP; Start 05/26/18 at 16:30 Docusate Sodium (Colace) 100 mg Q12H PRN PO .CONSTIPATION; Start 05/26/18 at 16:30 Magnesium Hydroxide (Milk Of Mag) 30 ml DAILY PRN PO .CONSTIPATION; Start 05/26/18 at 16:30 Bisacodyl (Dulcolax) 5 mg DAILY PRN PO .CONSTIPATION; Start 05/26/18 at 16:30 Bisacodyl (Dulcolax Supp) 10 mg DAILY PRN [place] .CONSTIPATION; Start 05/26/18 at 16:30 Zolpidem Tartrate (Ambien) 5 mg QHS PRN PO .INSOMNIA; Start 05/26/18 at 16:30 Lactobacillus Acidophilus/ Rhamnosus (Culturelle) 1 cap BID PO Last administered on 06/04/18 08:31; Admin Dose 1 CAP; Start 05/26/18 at 21:00 Baclofen (Lioresal) 10 mg TID PO Last administered on 06/04/18 08:31; Admin Dose 10 MG; Start 05/26/18 at 23:00 Gabapentin (Neurontin) 300 mg TID PO Last administered on 06/04/18 08:31; Admin Dose 300 MG; Start 05/26/18 at 23:00 Miscellaneous Information (Pending Santyl Order For Wound Care) This patient lorenzana... PRN PRN XX WOUND CARE; Start 05/27/18 at 01:00 Collagenase (Santyl) 1 applic PRN PRN TOP PRN; Start 05/27/18 at 05:00 Oxycodone/ Acetaminophen (Endocet (10/ 325)) 1 tab Q3H PRN PO MODERATE PAIN LEVEL 4-6 Last administered on 06/04/18at 09:55; Admin Dose 1 TAB; Start 05/27/18 at 14:00 Albuterol (Ventolin Hfa) 2 puff Q4H RESP THERAPY PRN INH WHEEZING AND SOB; Start 05/28/18 at 18:00 Linezolid (Zyvox) 600 mg BID PO Last administered on 06/04/18 08:31; Admin Dose 600 MG; Start 05/29/18 at 13:30 Enoxaparin Sodium (Lovenox) 40 mg DAILY SC Last administered on 06/04/18at 08:37; Admin Dose 40 MG; Start 05/31/18 at 09:00 Morphine Sulfate (morphine) 6 mg Q4H PRN PO SEVERE PAIN LEVEL 7-10 Last administered on 3/6/19at 05:30; Admin Dose 6 MG; Start 06/02/18 at 23:30 Naproxen (Naprosyn) 500 mg Q8H PRN PO MILD PAIN LEVEL 1-3; Start 06/03/18 at 15:30 Oxycodone HCl (Roxicodone) 5 mg Q4H PRN PO MODERATE PAIN LEVEL 4-6 Last administered on 06/04/18at 08:34; Admin Dose 5 MG; Start 06/03/18 at 15:30 PAT RODRIGUEZ NP Jun 04, 2018 10:56
--- NOTE | 2018-06-04 11:18 | PREAC ---
Date/Time of Note Date/Time of Note DATE: 06/04/18 TIME: 11:13 Anesthesia Eval and Record Evaluation Time Pre-Procedure Interview DATE: 06/04/18 TIME: 11:13 Age 28 Sex male NPO: 8 hrs (instructed to start NPO midnight) Preoperative diagnosis right foot osteomyelitis (pt had RIGHT foot sx 05/04/18, Dr. Terry placed LMA#4 and right adductor canal and right sciatic nerve blocks, no issues) Planned procedure right foot debridement, possible skin grafting Past Medical History Past Medical History: Includes Pulm: Other (tobacco and marijuana use) Neuro: Other (spina bifida leading to paraplegia, multiple allergies.) Hepatic: Other (hepatic steatosis) GI: Morbid obesity (BMi 42) Infection(s): Other (right foot MRSA, osteomyelitis. sacral decub) Surgery & Anesthesia Issues No known issue Meds Anticoagulation: No Beta Mahsa within 24 hr: No Reason Beta Mahsa not given: Pt. not on B-Mahsa Active Scripts Ranitidine Hcl* (Ranitidine Hcl*) 150 Mg Tablet, 150 MG PO HS, #30 TAB 2 Refills Prov:SHEAMARLY S. 05/12/18 Mupirocin* (Bactroban*) 2% -22 Gram Oint...g., 1 APPLIC TOP BID, #1 BOTTLE 1 Refill Prov:JAVIERMARLY S. 05/12/18 Collagenase* (Santyl*) 30 Gm Oint..gm., 1 APPLIC TOP DAILY, #1 BOTTLE 1 Refill Prov:SHEAMARLY S. 05/12/18 Clotrimazole (Clotrim) 15 Gm Cr, 1 APPLIC TOP BID, #1 BOTTLE 1 Refill Prov:SHEAMARLY S. 05/12/18 Ammonium Lactate* (Lac-Hydrin* 12% (225gm)) 1 Applic Lotion, 1 APPLIC TOP DAILY, #1 BOTTLE 1 Refill Prov:JAVIERMARLY S. 05/12/18 Baclofen* (Baclofen*) 10 Mg Tablet, 10 MG PO TID, #90 TAB Prov:AVA VALDIVIAEEP S. 05/12/18 Gabapentin* (Gabapentin*) 300 Mg Capsule, 300 MG PO TID, #90 CAP Prov:NAHEED VALDIVIAP S. 05/12/18 Reported Medications Phenazopyridine Hcl* (Phenazopyridine Hcl*) 200 Mg Tablet, 200 MG PO TID, TAB FOR 3 DAYS 04/10/18 Current Medications IV Flush (NS 3 ml) 3 ml PER PROTOCOL IV ; Start 05/26/18 at 16:30 Ondansetron HCl (Zofran Inj) 4 mg Q6H PRN IV NAUSEA/VOMITING; Start 05/26/18 at 16:30 Acetaminophen (Tylenol Tab) 650 mg Q6H PRN PO .PAIN 1-3 OR TEMP; Start 05/26/18 at 16:30 Acetaminophen (Tylenol Supp) 650 mg Q6H PRN [place] .PAIN 1-3 OR TEMP; Start 05/26/18 at 16:30 Docusate Sodium (Colace) 100 mg Q12H PRN PO .CONSTIPATION; Start 05/26/18 at 16:30 Magnesium Hydroxide (Milk Of Mag) 30 ml DAILY PRN PO .CONSTIPATION; Start 05/26/18 at 16:30 Bisacodyl (Dulcolax) 5 mg DAILY PRN PO .CONSTIPATION; Start 05/26/18 at 16:30 Bisacodyl (Dulcolax Supp) 10 mg DAILY PRN [place] .CONSTIPATION; Start 05/26/18 at 16:30 Zolpidem Tartrate (Ambien) 5 mg QHS PRN PO .INSOMNIA; Start 05/26/18 at 16:30 Lactobacillus Acidophilus/ Rhamnosus (Culturelle) 1 cap BID PO Last administered on 06/04/18at 08:31; Admin Dose 1 CAP; Start 05/26/18 at 21:00 Baclofen (Lioresal) 10 mg TID PO Last administered on 06/04/18at 08:31; Admin Dose 10 MG; Start 05/26/18 at 23:00 Gabapentin (Neurontin) 300 mg TID PO Last administered on 06/04/18at 08:31; Admin Dose 300 MG; Start 05/26/18 at 23:00 Miscellaneous Information (Pending Santyl Order For Wound Care) This patient lorenzana... PRN PRN XX WOUND CARE; Start 05/27/18 at 01:00 Collagenase (Santyl) 1 applic PRN PRN TOP PRN; Start 05/27/18 at 05:00 Oxycodone/ Acetaminophen (Endocet (10/ 325)) 1 tab Q3H PRN PO MODERATE PAIN LEVEL 4-6 Last administered on 06/04/18at 09:55; Admin Dose 1 TAB; Start 05/27/18 at 14:00 Albuterol (Ventolin Hfa) 2 puff Q4H RESP THERAPY PRN INH WHEEZING AND SOB; Start 05/28/18 at 18:00 Linezolid (Zyvox) 600 mg BID PO Last administered on 06/04/18at 08:31; Admin Dose 600 MG; Start 05/29/18 at 13:30 Enoxaparin Sodium (Lovenox) 40 mg DAILY SC Last administered on 06/04/18at 08:37; Admin Dose 40 MG; Start 05/31/18 at 09:00 Morphine Sulfate (morphine) 6 mg Q4H PRN PO SEVERE PAIN LEVEL 7-10 Last administered on 06/03/18at 05:30; Admin Dose 6 MG; Start 06/02/18 at 23:30 Naproxen (Naprosyn) 500 mg Q8H PRN PO MILD PAIN LEVEL 1-3; Start 06/03/18 at 15:30 Oxycodone HCl (Roxicodone) 5 mg Q4H PRN PO MODERATE PAIN LEVEL 4-6 Last administered on 06/04/18at 08:34; Admin Dose 5 MG; Start 06/03/18 at 15:30 Meds reviewed: Yes Allergies Coded Allergies: latex (Unverified Allergy, Intermediate, RASH, 04/10/18) ketorolac (Unverified Allergy, Mild, RASH, 04/10/18) papaya (Unverified Allergy, Mild, 04/10/18) piperacillin (Unverified Allergy, Mild, 04/10/18) tazobactam (Unverified Allergy, Mild, 04/10/18) ibuprofen (Unverified Allergy, Unknown, LIP SWELLING, STATED THROAT IS CLOSING, 02/24/18) Allergies Reviewed: Yes Labs/Studies Labs Reviewed: Reviewed by anesthesiologist Result Diagram: 05/31/1851905/31/18519 test: N/A Studies: 2D Echo (2017 echo normal EF) Pre-procedure Exam Last vitals Vital Signs Date Temp Pulse Resp B/P (MAP) Pulse Ox O2 O2 Flow FiO2 Time Delivery Rate 06/04/18 98.8 100 20 140/78 96 08:00 (98) 05/31/18 Room Air 08:08 Airway: Adequate mouth opening, Adequate thyromental dist Mallampati: Mallampati II Teeth: Normal Lung: Normal Heart: Normal ASA Physical Status ASA physical status: 3 Emergency: None Planned Anesthetic Nerve block: Sciatic (right), Other (right adductor canal block) Planned Pain Management Single shot nerve block, Parenteral pain med, Local by surgeon Pre-operative Attestations Prior to commencing anesthesia and surgery, the patient was re-evaluated, there was verification of: *The patient's identity *The results of appropriate recent lab work and preoperative vital signs *The above evaluation not changing prior to induction *Anesthetic plan, risk benefits, alternative and complications discussed with patient/family; questions answered; patient/family understands, accepts and w ishes to proceed. ALLEGRA DAVIS Jun 04, 2018 11:17
--- NOTE | 2018-06-04 12:39 | PN ---
Date/Time of Note Date/Time of Note DATE: 06/04/18 TIME: 12:37 Assessment/Plan VTE Prophylaxis Risk score (from Nsg)>0 risk: 10 SCD applied (from Nsg): Yes Pharmacological prophylaxis: heparin Lines/Catheters IV Catheter Type (from Nrsg): Central Line Central line still needed: Yes Assessment/Plan Hospital Course 28 yo male with spina bifida leading to paraplegia presents wtih OM of his foot OM foot: - abx per ID - Plan for surgery Friday - Wound vac Sacral decubitus history. Continue offload although patient is not adherent to medical management Spina bifida Abnormal LFTs asymptomatic, likely due to hepatic steatosis, stable observe Result Diagram: 05/31/1851905/31/18519 Subjective 24 Hr Interval Summary Free Text/Dictation Zyvox was approved by insurance Denies compliants. No change to clinical status. Awaits debridement Friday Exam/Review of Systems Exam Vitals Vital Signs Date Temp Pulse Resp B/P (MAP) Pulse Ox O2 O2 Flow FiO2 Time Delivery Rate 06/04/18 98.8 100 20 140/78 96 08:00 (98) 05/31/18 Room Air 08:08 Intake and Output 06/03/18 06/03/18 06/04/18 1515:00 23:00 07:00 IntakeIntake Total 720 ml 240 ml BalanceBalance 720 ml 240 ml Constitutional: alert, oriented, well developed Psych: no complaints, nl mood/affect Head: normocephalic, atraumatic Eyes: nl conjunctiva, EOMI, nl lids, nl sclera, PERRL ENMT: nl external ears & nose, nl lips & teeth, nl nasal mucosa & septum Neck: supple, non-tender Respiratory: clear to auscultation, normal air movement Cardiovascular: regular rate and rhythm, nl pulses Gastrointestinal: soft, nl liver, spleen, non-tender Musculoskeletal: nl extremities to inspection, nl gait and stance Extremities: normal pulses 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, nl mental status, nl speech, nl strength Skin: nl turgor; No rash or lesions Lymph: nl lymph nodes Medications Medication Current Medications IV Flush (NS 3 ml) 3 ml PER PROTOCOL IV ; Start 05/26/18 at 16:30 Ondansetron HCl (Zofran Inj) 4 mg Q6H PRN IV NAUSEA/VOMITING; Start 05/26/18 at 16:30 Acetaminophen (Tylenol Tab) 650 mg Q6H PRN PO .PAIN 1-3 OR TEMP; Start 05/26/18 at 16:30 Acetaminophen (Tylenol Supp) 650 mg Q6H PRN [place] .PAIN 1-3 OR TEMP; Start 05/26/18 at 16:30 Docusate Sodium (Colace) 100 mg Q12H PRN PO .CONSTIPATION; Start 05/26/18 at 16:30 Magnesium Hydroxide (Milk Of Mag) 30 ml DAILY PRN PO .CONSTIPATION; Start 05/26/18 at 16:30 Bisacodyl (Dulcolax) 5 mg DAILY PRN PO .CONSTIPATION; Start 05/26/18 at 16:30 Bisacodyl (Dulcolax Supp) 10 mg DAILY PRN [place] .CONSTIPATION; Start 05/26/18 at 16:30 Zolpidem Tartrate (Ambien) 5 mg QHS PRN PO .INSOMNIA; Start 05/26/18 at 16:30 Lactobacillus Acidophilus/ Rhamnosus (Culturelle) 1 cap BID PO Last administered on 06/04/18at 08:31; Admin Dose 1 CAP; Start 05/26/18 at 21:00 Baclofen (Lioresal) 10 mg TID PO Last administered on 06/04/18at 12:17; Admin Dose 10 MG; Start 05/26/18 at 23:00 Gabapentin (Neurontin) 300 mg TID PO Last administered on 06/04/18at 12:17; Admin Dose 300 MG; Start 05/26/18 at 23:00 Miscellaneous Information (Pending Santyl Order For Wound Care) This patient lorenzana... PRN PRN XX WOUND CARE; Start 05/27/18 at 01:00 Collagenase (Santyl) 1 applic PRN PRN TOP PRN; Start 05/27/18 at 05:00 Oxycodone/ Acetaminophen (Endocet (10/ 325)) 1 tab Q3H PRN PO MODERATE PAIN LEVEL 4-6 Last administered on 06/04/18at 09:55; Admin Dose 1 TAB; Start 05/27/18 at 14:00 Albuterol (Ventolin Hfa) 2 puff Q4H RESP THERAPY PRN INH WHEEZING AND SOB; Start 05/28/18 at 18:00 Linezolid (Zyvox) 600 mg BID PO Last administered on 06/04/18 08:31; Admin Dose 600 MG; Start 05/29/18 at 13:30 Enoxaparin Sodium (Lovenox) 40 mg DAILY SC Last administered on 06/04/18at 08:37; Admin Dose 40 MG; Start 05/31/18 at 09:00 Morphine Sulfate (morphine) 6 mg Q4H PRN PO SEVERE PAIN LEVEL 7-10 Last a dministered on 06/03/18at 05:30; Admin Dose 6 MG; Start 06/02/18 at 23:30 Naproxen (Naprosyn) 500 mg Q8H PRN PO MILD PAIN LEVEL 1-3; Start 06/03/18 at 15:30 Oxycodone HCl (Roxicodone) 5 mg Q4H PRN PO MODERATE PAIN LEVEL 4-6 Last administered on 06/04/18 08:34; Admin Dose 5 MG; Start 06/03/18 at 15:30 KASIE PARK MD Jun 04, 2018 12:39
[2018-06-04 14:00] VITALS: BP 148/68; PULSE 96; RESP 18
--- NOTE | 2018-06-04 19:42 | CONS ---
Assessment/Plan Assessment/Plan Assessment/Plan (Daily) RLE neuropathic ulcer RLE wound dehiscence RLE osteomyelitis Spina bifida Peripheral neuropathy Plan: Continue wound VAC to be applied to right lower extremity ulceration site. Patient will need to continue with IV abx per ID recommendations. Skin grafting in the OR setting with likely cast application. Offload heels with pillows. NPO after midnight tonight and prepare consent. Procedure Friday06/05/18 Consultation Date/Type/Reason Admit Date/Time May 29, 2018 at 08:05 Initial Consult Date Date/Time of Note DATE: 06/04/18 TIME: 19:42 24 HR Interval Summary Free Text/Dictation No acute events overnight. Exam/Review of Systems Exam Vitals Vital Signs Date Temp Pulse Resp B/P (MAP) Pulse Ox O2 O2 Flow FiO2 Time Delivery Rate 06/04/18 98.6 96 18 148/68 96 14:00 (94) 05/31/18 Room Air 08:08 Intake and Output 06/03/18 06/03/18 06/04/18 1515:00 23:00 07:00 IntakeIntake Total 720 ml 240 ml BalanceBalance 720 ml 240 ml Exam Wound VAC dressings clean dry and intact no strikethrough drainage, no proximal streaking. Serosanguinous drainage noted to canister with 125mmHg low continuous therapy. Results Result Diagram: 05/31/18 0520 05/31/18 0520 Medications Medication Current Medications IV Flush (NS 3 ml) 3 ml PER PROTOCOL IV ; Start 05/26/18 at 16:30 Ondansetron HCl (Zofran Inj) 4 mg Q6H PRN IV NAUSEA/VOMITING; Start 05/26/18 at 16:30 Acetaminophen (Tylenol Tab) 650 mg Q6H PRN PO .PAIN 1-3 OR TEMP; Start 05/26/18 at 16:30 Acetaminophen (Tylenol Supp) 650 mg Q6H PRN [place] .PAIN 1-3 OR TEMP; Start 05/26/18 at 16:30 Docusate Sodium (Colace) 100 mg Q12H PRN PO .CONSTIPATION; Start 05/26/18 at 16:30 Magnesium Hydroxide (Milk Of Mag) 30 ml DAILY PRN PO .CONSTIPATION; Start 05/26/18 at 16:30 Bisacodyl (Dulcolax) 5 mg DAILY PRN PO .CONSTIPATION; Start 05/26/18 at 16:30 Bisacodyl (Dulcolax Supp) 10 mg DAILY PRN [place] .CONSTIPATION; Start 05/26/18 at 16:30 Zolpidem Tartrate (Ambien) 5 mg QHS PRN PO .INSOMNIA; Start 05/26/18 at 16:30 Lactobacillus Acidophilus/ Rhamnosus (Culturelle) 1 cap BID PO Last administered on 06/04/18 08:31; Admin Dose 1 CAP; Start 05/26/18 at 21:00 Baclofen (Lioresal) 10 mg TID PO Last administered on 06/04/18 12:17; Admin Dose 10 MG; Start 05/26/18 at 23:00 Gabapentin (Neurontin) 300 mg TID PO Last administered on 06/04/18 12:17; Admin Dose 300 MG; Start 05/26/18 at 23:00 Miscellaneous Information (Pending Santyl Order For Wound Care) This patient lorenzana... PRN PRN XX WOUND CARE; Start 05/27/18 at 01:00 Collagenase (Santyl) 1 applic PRN PRN TOP PRN; Start 05/27/18 at 05:00 Oxycodone/ Acetaminophen (Endocet (10/ 325)) 1 tab Q3H PRN PO MODERATE PAIN LEVEL 4-6 Last administered on 06/04/18 18:03; Admin Dose 1 TAB; Start 05/27/18 at 14:00 Albuterol (Ventolin Hfa) 2 puff Q4H RESP THERAPY PRN INH WHEEZING AND SOB; Start 05/28/18 at 18:00 Linezolid (Zyvox) 600 mg BID PO Last administered on 06/04/18 08:31; Admin Dose 600 MG; Start 05/29/18 at 13:30 Enoxaparin Sodium (Lovenox) 40 mg DAILY SC Last administered on 06/04/18 08:37; Admin Dose 40 MG; Start 05/31/18 at 09:00 Morphine Sulfate (morphine) 6 mg Q4H PRN PO SEVERE PAIN LEVEL 7-10 Last administered on 06/03/18 05:30; Admin Dose 6 MG; Start 06/02/18 at 23:30 Naproxen (Naprosyn) 500 mg Q8H PRN PO MILD PAIN LEVEL 1-3; Start 06/03/18 at 15:30 Oxycodone HCl (Roxicodone) 5 mg Q4H PRN PO MODERATE PAIN LEVEL 4-6 Last administered on 06/04/18at 16:42; Admin Dose 5 MG; Start 06/03/18 at 15:30 LUCINA RINALDI DPM Jun 04, 2018 19:42
[2018-06-04 20:20] VITALS: BP 147/71; PULSE 97; RESP 18
[2018-06-04] MEDS ORDERED: ALTEPLASE (CATHFLO) 2 MG INJ CATHETER ONE ×2 (22:30)
[2018-06-05] VITALS (15 sets, daily range): BP systolic 117–174; BP diastolic 55–90; PULSE 77–114; RESP 12–27
[2018-06-05] MEDS: morphine 2 MG INJ IV PRN ×5 (03:20→23:18)
[2018-06-05] MEDS: BACLOFEN 10 MG TAB PO SCH ×3 (08:43→20:41)
[2018-06-05] MEDS: LACTOBACILLUS RHAMNOSUS CAP PO SCH ×2 (08:43→20:41)
[2018-06-05] MEDS: GABAPENTIN 300 MG CAP PO SCH ×3 (08:43→20:41)
[2018-06-05] MEDS: ENOXAPARIN 40 MG/0.4 ML SYG SC SCH (08:43)
[2018-06-05] MEDS: ZYVOX 600 MG TAB PO SCH ×2 (08:43→20:41)
--- NOTE | 2018-06-05 11:14 | CONS ---
Assessment/Plan Assessment/Plan Hospital Course (Demo Recall) Feels good, nad, no fevers Antimicrobials: Zyvox Allergies: Zosyn Physical examination: Well-developed obese middle-aged man in no distress. Head atraumatic normocephalic sclera nonicteric vehicle mucosa pink neck is supple chest rise symmetrical breath sounds clear heart: S1-S2 abdomen soft bowel sounds present extremities with left knee edema erythema and fluctuance on palpation Assessment: 1. 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 Morbid obesity 5. History of spina bifida 6. Hx MRSA col-n Plan: Remains stable, plan for skin grafting today, continue abx for treatment for OM==> last dose June 29. Per dw CM Zyvox was approved by insurance, will order CBC for am Consultation Date/Type/Reason Admit Date/Time May 29, 2018 at 08:05 Initial Consult Date Type of Consult id Date/Time of Note DATE: 06/05/18 TIME: 11:13 Exam/Review of Systems Exam Vitals Vital Signs Date Temp Pulse Resp B/P (MAP) Pulse Ox O2 O2 Flow FiO2 Time Delivery Rate 06/05/18 98.3 77 18 131/70 94 08:09 (90) Intake and Output 06/04/18 06/04/18 06/05/18 1515:00 23:00 07:00 IntakeIntake Total 900 ml 300 ml BalanceBalance 900 ml 300 ml Medications Medication Current Medications IV Flush (NS 3 ml) 3 ml PER PROTOCOL IV ; Start 05/26/18 at 16:30 Ondansetron HCl (Zofran Inj) 4 mg Q6H PRN IV NAUSEA/VOMITING; Start 05/26/18 at 16:30 Acetaminophen (Tylenol Tab) 650 mg Q6H PRN PO .PAIN 1-3 OR TEMP; Start 05/26/18 at 16:30 Acetaminophen (Tylenol Supp) 650 mg Q6H PRN [place] .PAIN 1-3 OR TEMP; Start 05/26/18 at 16:30 Docusate Sodium (Colace) 100 mg Q12H PRN PO .CONSTIPATION; Start 05/26/18 at 16:30 Magnesium Hydroxide (Milk Of Mag) 30 ml DAILY PRN PO .CONSTIPATION; Start 05/26/18 at 16:30 Bisacodyl (Dulcolax) 5 mg DAILY PRN PO .CONSTIPATION; Start 05/26/18 at 16:30 Bisacodyl (Dulcolax Supp) 10 mg DAILY PRN [place] .CONSTIPATION; Start 05/26/18 at 16:30 Zolpidem Tartrate (Ambien) 5 mg QHS PRN PO .INSOMNIA; Start 05/26/18 at 16:30 Lactobacillus Acidophilus/ Rhamnosus (Culturelle) 1 cap BID PO Last administered on 06/05/18 08:43; Admin Dose 1 CAP; Start 05/26/18 at 21:00 Baclofen (Lioresal) 10 mg TID PO Last administered on 06/05/18 08:43; Admin Dose 10 MG; Start 05/26/18 at 23:00 Gabapentin (Neurontin) 300 mg TID PO Last administered on 06/05/18 08:43; Admin Dose 300 MG; Start 05/26/18 at 23:00 Miscellaneous Information (Pending Santyl Order For Wound Care) This patient lorenzana... PRN PRN XX WOUND CARE; Start 05/27/18 at 01:00 Collagenase (Santyl) 1 applic PRN PRN TOP PRN; Start 05/27/18 at 05:00 Oxycodone/ Acetaminophen (Endocet (10/ 325)) 1 tab Q3H PRN PO MODERATE PAIN LEVEL 4-6 Last administered on 06/04/18 23:01; Admin Dose 1 TAB; Start 05/27/18 at 14:00 Albuterol (Ventolin Hfa) 2 puff Q4H RESP THERAPY PRN INH WHEEZING AND SOB; Start 05/28/18 at 18:00 Linezolid (Zyvox) 600 mg BID PO Last administered on 06/05/18 08:43; Admin Dose 600 MG; Start 05/29/18 at 13:30 Enoxaparin Sodium (Lovenox) 40 mg DAILY SC Last administered on 06/04/18 08:37; Admin Dose 40 MG; Start 05/31/18 at 09:00 Morphine Sulfate (morphine) 6 mg Q4H PRN PO SEVERE PAIN LEVEL 7-10 Last admini stered on 06/03/18 05:30; Admin Dose 6 MG; Start 06/02/18 at 23:30 Naproxen (Naprosyn) 500 mg Q8H PRN PO MILD PAIN LEVEL 1-3; Start 06/03/18 at 15:30 Oxycodone HCl (Roxicodone) 5 mg Q4H PRN PO MODERATE PAIN LEVEL 4-6 Last administered on 06/04/18at 20:59; Admin Dose 5 MG; Start 06/03/18 at 15:30 Morphine Sulfate (morphine) 2 mg Q4H PRN IV SEVERE PAIN LEVEL 7-10 Last administered on 06/05/18at 07:34; Admin Dose 2 MG; Start 06/05/18 at 03:30 PAT RODRIGUEZ NP Jun 05, 2018 11:14
[2018-06-05] MEDS ORDERED: FENTAnyl 50 MCG/ML VIAL ONE ×2 (11:24→12:51)
[2018-06-05] MEDS ORDERED: MIDAZOLAM 1 MG/ML 2 ML INJ ONE (11:24)
[2018-06-05] MEDS ORDERED: LIDOCAINE 2% (SDV) 5 ML INJ ONE (11:24)
[2018-06-05] MEDS ORDERED: PROPOFOL 20 ML ONE (11:24)
[2018-06-05] MEDS ORDERED: VANCOMYCIN 1 GM (PMX) 250 ML ONE (11:41)
--- NOTE | 2018-06-05 11:48 | HPN ---
Date/Time of Note Date/Time of Note DATE: 06/05/18 TIME: 11:48 Interval H&P Admission Note Pt. seen H&P reviewed: No system changes LUCINA RINALDI DPM Jun 05, 2018 11:48
[2018-06-05] MEDS ORDERED: ONDANSETRON 4 MG INJ ONE (11:52)
[2018-06-05] MEDS ORDERED: FAMOTIDINE 20 MG INJ ONE (11:52)
[2018-06-05] MEDS ORDERED: DEXAMETHASONE 4 MG/ML 5 ML INJ ONE (11:52)
[2018-06-05] MEDS ORDERED: LIDOCAINE 1%/EPI (1:100,000) (MDV) 20 ML ONE (12:07)
[2018-06-05] MEDS ORDERED: LIDOCAINE 1% (MPF) 30 ML INJ ONE (12:07)
[2018-06-05] MEDS ORDERED: POLYMYXIN/BACITRACIN 1L IRRIG ONE (12:12)
[2018-06-05] MEDS ORDERED: MINERAL OIL LIGHT 10 ML VIAL ONE (12:12)
[2018-06-05] MEDS ORDERED: ONDANSETRON 4 MG INJ IV PRN (12:30)
[2018-06-05] MEDS ORDERED: LABETALOL HCL 20MG INJ IV PRN (12:30)
[2018-06-05] MEDS ORDERED: MIDAZOLAM 1 MG/ML 2 ML INJ IV PRN (12:30)
[2018-06-05] MEDS ORDERED: ALBUTEROL 0.083% (NEB) 2.5 MG/3 ML AMP HHN PRN (12:30)
[2018-06-05] MEDS ORDERED: HYDROmorphONE 1 MG/5 ML IV SYRINGE IV PRN ×2 (12:30)
[2018-06-05] MEDS ORDERED: MEPERIDINE 25 MG INJ IV PRN (12:30)
[2018-06-05] MEDS ORDERED: OXYCODONE/ACETAMINOPHEN (5/325) TAB PO PRN ×2 (12:30)
--- NOTE | 2018-06-05 12:53 | SIPON ---
Date/Time of Note Date/Time of Note DATE: 06/05/18 TIME: 12:53 Operative Report Preoperative Diagnosis RLE neuropathic ulcer RLE wound dehiscence RLE osteomyelitis Spina bifida Peripheral neuropathy Postoperative Diagnosis RLE neuropathic ulcer RLE wound dehiscence RLE osteomyelitis Spina bifida Peripheral neuropathy Operation/Procedure Performed Right lower extremity wound bed preparation Right lower extremity split thickness skin graft Application of below knee short leg cast Surgeon Phillip Rinaldi DPM melter assistant none Anesthesia: general Estimated blood loss: 0 - 10 ml's Transfusion Required none Specimen none Grafts/Implants none Complications none PHILLIP RINALDI DPM Jun 05, 2018 12:53
--- NOTE | 2018-06-05 12:59 | OPR ---
Date/Time of Note Date/Time of Note DATE: 06/05/18 TIME: 12:59 Operative Report Preoperative Diagnosis RLE neuropathic ulcer RLE wound dehiscence RLE osteomyelitis Spina bifida Peripheral neuropathy Postoperative Diagnosis RLE neuropathic ulcer RLE wound dehiscence RLE osteomyelitis Spina bifida Peripheral neuropathy Operation/Procedure Performed Right lower extremity wound bed preparation Right lower extremity split thickness skin graft Application of below knee short leg cast Surgeon Phillip Rinaldi DPM Notched Blade Loader none Anesthesia Type: general Estimated Blood Loss: 0 - 10 ml's Transfusion none Specimen none Grafts/Implants none Complications none Indications 28 y/o M patient with a 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 Patient has been using the wound VAC which has improved the wound bed. All of the patient's questions and concerns were addressed. No promises or guarantees were given. Procedure Description Patient was brought into the OR and placed on the OR table in the supine position. The right lower extremity was scrubbed, prepped, and draped in the usual aseptic manner. A formal time out was conducted. Attention was directed to the right medial ankle at the site of ulceration which measured 5 x 3 x 0.5cm with a 100% granular wound base there was a pinpoint area where the wound probed to bone, no purulence was expressed, no proximal streaking, no surrounding erythema noted. Using a curette the wound bed was prepared and removed of any biofilm and non viable tissue of the wound edges. Healthy bleeding was appreciated to the wound bed. Copious irrigation with antibiotic infused saline was used at the ulcer site. Next attention was directed to the proximal aspect of the right lower extremity and donor site was anesthetized with lidocaine 1% with epinephrine. Mineral oil was used to prepare the donor site and using a dermatome with a depth of 0.018in a split thickness skin graft was harvested. The graft was placed through a 1 to 1.5 mesher. The skin graft was then placed and secured with 3-0 prolene and skin karissa at the right medial ankle ulceration site. Xeroform, dry sterile dressings and tegaderm was applied to the donor site. Xeroform and dry sterile dressings applied to the right lower extremity ulcer site and a well padded below knee short leg cast was applied. Patient was transferred to the PACU with lisandro signs stable and neurovascular status intact. PHILLIP RINALDI DPM Jun 05, 2018 12:59
--- NOTE | 2018-06-05 13:05 | PAC ---
Date/Time of Note Date/Time of Note DATE: 06/05/18 TIME: 13:04 Post-Anesthesia Notes Post-Anesthesia Note Last documented vital signs HR 146/90 Hr 101 Temp 98.7 RR 20 Spo2 96% Vital Signs Date Temp Pulse Resp B/P (MAP) Pulse Ox O2 O2 Flow FiO2 Time Delivery Rate 06/05/18 98.6 12:58 06/05/18 77 18 131/70 94 08:09 (90) Activity: WNL Respiratory function: WNL Cardiovascular function: WNL Mental status: Baseline Pain reasonably controlled: Yes Hydration appropriate: Yes Nausea/Vomiting absent: Yes ALLEGRA DAVIS Jun 05, 2018 13:05
[2018-06-05] MEDS: HYDROmorphONE 1 MG/5 ML IV SYRINGE IV PRN ×2 (13:06→13:15)
--- NOTE | 2018-06-05 15:52 | PN ---
Date/Time of Note Date/Time of Note DATE: 06/05/18 TIME: 15:51 Assessment/Plan VTE Prophylaxis Risk score (from Ns)>0 risk: 10 SCD applied (from Nsg): Yes Pharmacological prophylaxis: heparin Lines/Catheters IV Catheter Type (from Nrsg): Central Line Central line still needed: Yes Assessment/Plan Hospital Course 28 yo male with spina bifida leading to paraplegia presents wtih OM of his foot OM foot: - abx per ID - s/p surgery - s/p wound vac Sacral decubitus history. Continue offload although patient is not adherent to medical management Spina bifida Abnormal LFTs asymptomatic, likely due to hepatic steatosis, stable observe Paraplegia Patient can be discharged home tomorrow Subjective 24 Hr Interval Summary Free Text/Dictation s/p OR today doing well ready for dc home tomorrow Exam/Review of Systems Exam Vitals Vital Signs Date Temp Pulse Resp B/P (MAP) Pulse Ox O2 O2 Flow FiO2 Time Delivery Rate 06/05/18 97.5 97 20 147/77 93 14:29 (100) 06/05/18 Nasal 2.0 13:51 Cannula Intake and Output 06/04/18 06/04/18 06/05/18 1414:59 22:59 06:59 IntakeIntake Total 900 ml 300 ml BalanceBalance 900 ml 300 ml Constitutional: alert, oriented, well developed Psych: no complaints, nl mood/affect Head: normocephalic, atraumatic Eyes: nl conjunctiva, EOMI, nl lids, nl sclera, PERRL ENMT: nl external ears & nose, nl lips & teeth, nl nasal mucosa & septum Neck: supple, non-tender Respiratory: clear to auscultation, normal air movement Cardiovascular: regular rate and rhythm, nl pulses Gastrointestinal: soft, nl liver, spleen, non-tender Musculoskeletal: nl extremities to inspection, nl gait and stance Extremities: normal pulses Neurological: BENDING ROLL HAND II-XII intact, nl mental status, nl speech, nl strength Skin: nl turgor; No rash or lesions Lymph: nl lymph nodes Medications Medication Current Medications IV Flush (NS 3 ml) 3 ml PER PROTOCOL IV ; Start 05/26/18 at 16:30 Ondansetron HCl (Zofran Inj) 4 mg Q6H PRN IV NAUSEA/VOMITING; Start 05/26/18 at 16:30 Acetaminophen (Tylenol Tab) 650 mg Q6H PRN PO .PAIN 1-3 OR TEMP; Start 05/26/18 at 16:30 Acetaminophen (Tylenol Supp) 650 mg Q6H PRN [place] .PAIN 1-3 OR TEMP; Start 05/26/18 at 16:30 Docusate Sodium (Colace) 100 mg Q12H PRN PO .CONSTIPATION; Start 05/26/18 at 16:30 Magnesium Hydroxide (Milk Of Mag) 30 ml DAILY PRN PO .CONSTIPATION; Start 05/26/18 at 16:30 Bisacodyl (Dulcolax) 5 mg DAILY PRN PO .CONSTIPATION; Start 05/26/18 at 16:30 Bisacodyl (Dulcolax Supp) 10 mg DAILY PRN [place] .CONSTIPATION; Start 05/26/18 at 16:30 Zolpidem Tartrate (Ambien) 5 mg QHS PRN PO .INSOMNIA; Start 05/26/18 at 16:30 Lactobacillus Acidophilus/ Rhamnosus (Culturelle) 1 cap BID PO Last administered on 06/05/18at 08:43; Admin Dose 1 CAP; Start 05/26/18 at 21:00 Baclofen (Lioresal) 10 mg TID PO Last administered on 06/05/18at 14:22; Admin Dose 10 MG; Start 05/26/18 at 23:00 Gabapentin (Neurontin) 300 mg TID PO Last administered on 06/05/18at 14:21; Admin Dose 300 MG; Start 05/26/18 at 23:00 Miscellaneous Information (Pending Santyl Order For Wound Care) This patient lorenzana... PRN PRN XX WOUND CARE; Start 05/27/18 at 01:00 Collagenase (Santyl) 1 applic PRN PRN TOP PRN; Start 05/27/18 at 05:00 Oxycodone/ Acetaminophen (Endocet (10/ 325)) 1 tab Q3H PRN PO MODERATE PAIN LEVEL 4-6 Last administered on 06/04/18at 23:01; Admin Dose 1 TAB; Start 05/27/18 at 14:00 Albuterol (Ventolin Hfa) 2 puff Q4H RESP THERAPY PRN INH WHEEZING AND SOB; Start 05/28/18 at 18:00 Linezolid (Zyvox) 600 mg BID PO Last administered on 06/05/18 08:43; Admin Dose 600 MG; Start 05/29/18 at 13:30 Enoxaparin Sodium (Lovenox) 40 mg DAILY SC Last administered on 06/04/18 08:37; Admin Dose 40 MG; Start 05/31/18 at 09:00 Morphine Sulfate (morphine) 6 mg Q4H PRN PO SEVERE PAIN LEVEL 7-10 Last administered on 06/03/18 05:30; Admin Dose 6 MG; Start 06/02/18 at 23:30 Naproxen (Naprosyn) 500 mg Q8H PRN PO MILD PAIN LEVEL 1-3; Start 06/03/18 at 15:30 Oxycodone HCl (Roxicodone) 5 mg Q4H PRN PO MODERATE PAIN LEVEL 4-6 Last administered on 06/04/18 20:59; Admin Dose 5 MG; Start 06/03/18 at 15:30 Morphine Sulfate (morphine) 2 mg Q4H PRN IV SEVERE PAIN LEVEL 7-10 Last administered on 06/05/18 14:47; Admin Dose 2 MG; Start 06/05/18 at 03:30 Hydromorphone HCl (Dilaudid) 0.2 mg PACU PRN IV MILD PAIN 1-3 Last administered on 06/05/18 13:40; Admin Dose 0.2 MG; Start 06/05/18 at 12:30; Stop 06/05/18 at 16:30 Hydromorphone HCl (Dilaudid) 0.4 mg PACU PRN IV MOD PAIN 4-6 Last administered on 06/05/18 13:15; Admin Dose 0.4 MG; Start 06/05/18 at 12:30; Stop 06/05/18 at 16:30 Hydromorphone HCl (Dilaudid) 0.6 mg PACU PRN IV SEVERE PAIN 7-10; Start 06/05/18 at 12:30; Stop 06/05/18 at 16:30 Oxycodone/ Acetaminophen (Percocet (5/ 325)) 1 tab PACU ORDER PRN PO .PAIN 1-5; Start 06/05/18 at 12:30; Stop 06/05/18 at 16:30 Oxycodone/ Acetaminophen (Percocet (5/ 325)) 2 tab PACU ORDER PRN PO .PAIN 6-10; Start 06/05/18 at 12:30; Stop 06/05/18 at 16:30 Ondansetron HCl (Zofran Inj) 4 mg PACU ORDER PRN IV NAUSEA/VOMITING Last administered on 06/05/18at 14:01; Admin Dose 4 MG; Start 06/05/18 at 12:30; Stop 06/05/18 at 16:30 Labetalol HCl (Labetalol) 5 mg PACU ORDER PRN IV HIGH BLOOD PRESSURE; Start 06/05/18 at 12:30; Stop 06/05/18 at 16:30 Albuterol (Proventil 0.083% (Neb)) 2.5 mg PACU ORDER PRN HHN .WHEEZING; Start 06/05/18 at 12:30; Stop 06/05/18 at 16:30 Meperidine HCl (Demerol) 25 mg PACU ORDER PRN IV .RIGORS Last administered on 06/05/18 14:02; Admin Dose 25 MG; Start 06/05/18 at 12:30; Stop 06/05/18 at 16:30 Midazolam HCl (Versed) 0.5 mg PACU ORDER PRN IV .ANXIETY; Start 06/05/18 at 12:30; Stop 06/05/18 at 16:30 KASIE PARK MD Jun 05, 2018 15:52
[2018-06-06] MEDS: OXYCODONE/ACETAMINOPHEN (10/325) TAB PO PRN ×6 (00:06→22:21)
[2018-06-06 02:13] VITALS: BP 132/65; PULSE 85; RESP 18
[2018-06-06] MEDS: morphine 2 MG INJ IV PRN ×3 (04:48→13:20)
[2018-06-06 08:27] VITALS: BP 139/80; PULSE 84; RESP 18
[2018-06-06] MEDS: LACTOBACILLUS RHAMNOSUS CAP PO SCH ×2 (08:35→20:15)
[2018-06-06] MEDS: ZYVOX 600 MG TAB PO SCH ×2 (08:35→20:15)
[2018-06-06] MEDS: BACLOFEN 10 MG TAB PO SCH ×3 (08:36→20:15)
[2018-06-06] MEDS: GABAPENTIN 300 MG CAP PO SCH ×3 (08:37→20:15)
[2018-06-06] MEDS: ENOXAPARIN 40 MG/0.4 ML SYG SC SCH ×2 (08:37→08:41)
--- NOTE | 2018-06-06 14:31 | PN ---
Date/Time of Note Date/Time of Note DATE: 06/06/18 TIME: 14:30 Assessment/Plan VTE Prophylaxis Risk score (from Ns)>0 risk: 10 SCD applied (from Ns): No SCD contraindicated: low risk/ambulating Pharmacological prophylaxis: heparin Lines/Catheters [facility] Central Line Central line still needed: Yes Urinary Cath still in place: No Assessment/Plan Hospital Course 28 yo male with spina bifida leading to paraplegia presents wtih OM of his foot OM foot: - abx per ID - s/p surgery - s/p wound vac Sacral decubitus history. Continue offload although patient is not adherent to medical management Spina bifida Abnormal LFTs asymptomatic, likely due to hepatic steatosis, stable observe Paraplegia Patient can be discharged home tomorrow Result Diagram: 06/05/18 1645 Results 24hrs Laboratory Tests Test 06/05/18 16:45 White Blood Count 9.9 # Red Blood Count 4.57 L Hemoglobin 12.9 L Hematocrit 41.7 L Mean Corpuscular Volume 91.2 Mean Corpuscular Hemoglobin 28.2 L Mean Corpuscular Hemoglobin Concent 30.9 L Red Cell Distribution Width 14.1 Platelet Count 268 Mean Platelet Volume 9.2 Immature Granulocytes % 1.200 H Neutrophils % 86.9 H Lymphocytes % 9.5 L Monocytes % 1.6 Eosinophils % 0.6 Basophils % 0.2 Nucleated Red Blood Cells % 0.0 Immature Granulocytes # 0.120 H Neutrophils # 8.6 H Lymphocytes # 0.9 Monocytes # 0.2 L Eosinophils # 0.1 Basophils # 0.0 Nucleated Red Blood Cells # 0.0 Subjective 24 Hr Interval Summary Free Text/Dictation Told he will be discharged home tomorrow No more opaites Exam/Review of Systems Exam Vitals Vital Signs Date Temp Pulse Resp B/P (MAP) Pulse Ox O2 O2 Flow FiO2 Time Delivery Rate 06/06/18 98.2 84 18 139/80 98 Room Air 08:27 (99) 06/05/18 2.0 13:51 Intake and Output 06/05/18 06/05/18 06/06/18 1414:59 22:59 06:59 IntakeIntake Total 760 ml 240 ml 1000 ml OutputOutput Total 1 ml 400 ml BalanceBalance 759 ml -160 ml 1000 ml Constitutional: alert, oriented, well developed Psych: no complaints, nl mood/affect Head: normocephalic, atraumatic Eyes: nl conjunctiva, EOMI, nl lids, nl sclera, PERRL ENMT: nl external ears & nose, nl lips & teeth, nl nasal mucosa & septum Neck: supple, non-tender Respiratory: clear to auscultation, normal air movement Cardiovascular: regular rate and rhythm, nl pulses Gastrointestinal: soft, nl liver, spleen, non-tender Musculoskeletal: nl extremities to inspection, nl gait and stance Extremities: normal pulses Neurological: CHAMBER WALKER II-XII intact, nl mental status, nl speech, nl strength Skin: nl turgor; No rash or lesions Lymph: nl lymph nodes Results Results 24hrs Laboratory Tests Test 06/05/18 16:45 White Blood Count 9.9 # Red Blood Count 4.57 L Hemoglobin 12.9 L Hematocrit 41.7 L Mean Corpuscular Volume 91.2 Mean Corpuscular Hemoglobin 28.2 L Mean Corpuscular Hemoglobin Concent 30.9 L Red Cell Distribution Width 14.1 Platelet Count 268 Mean Platelet Volume 9.2 Immature Granulocytes % 1.200 H Neutrophils % 86.9 H Lymphocytes % 9.5 L Monocytes % 1.6 Eosinophils % 0.6 Basophils % 0.2 Nucleated Red Blood Cells % 0.0 Immature Granulocytes # 0.120 H Neutrophils # 8.6 H Lymphocytes # 0.9 Monocytes # 0.2 L Eosinophils # 0.1 Basophils # 0.0 Nucleated Red Blood Cells # 0.0 Medications Medication Current Medications IV Flush (NS 3 ml) 3 ml PER PROTOCOL IV ; Start 05/26/18 at 16:30 Ondansetron HCl (Zofran Inj) 4 mg Q6H PRN IV NAUSEA/VOMITING; Start 05/26/18 at 16:30 Acetaminophen (Tylenol Tab) 650 mg Q6H PRN PO .PAIN 1-3 OR TEMP; Start 05/26/18 at 16:30 Acetaminophen (Tylenol Supp) 650 mg Q6H PRN [place] .PAIN 1-3 OR TEMP; Start 05/26/18 at 16:30 Docusate Sodium (Colace) 100 mg Q12H PRN PO .CONSTIPATION; Start 05/26/18 at 16:30 Magnesium Hydroxide (Milk Of Mag) 30 ml DAILY PRN PO .CONSTIPATION; Start 05/26/18 at 16:30 Bisacodyl (Dulcolax) 5 mg DAILY PRN PO .CONSTIPATION; Start 05/26/18 at 16:30 Bisacodyl (Dulcolax Supp) 10 mg DAILY PRN [place] .CONSTIPATION; Start 05/26/18 at 16:30 Zolpidem Tartrate (Ambien) 5 mg QHS PRN PO .INSOMNIA; Start 05/26/18 at 16:30 Lactobacillus Acidophilus/ Rhamnosus (Culturelle) 1 cap BID PO Last administered on 06/06/18 08:35; Admin Dose 1 CAP; Start 05/26/18 at 21:00 Baclofen (Lioresal) 10 mg TID PO Last administered on 06/06/18 13:20; Admin Dose 10 MG; Start 05/26/18 at 23:00 Gabapentin (Neurontin) 300 mg TID PO Last administered on 06/06/18 13:20; Admin Dose 300 MG; Start 05/26/18 at 23:00 Miscellaneous Information (Pending Santyl Order For Wound Care) This patient lorenzana ... PRN PRN XX WOUND CARE; Start 05/27/18 at 01:00 Collagenase (Santyl) 1 applic PRN PRN TOP PRN; Start 05/27/18 at 05:00 Oxycodone/ Acetaminophen (Endocet (10/ 325)) 1 tab Q3H PRN PO MODERATE PAIN LEVEL 4-6 Last administered on 06/06/18 14:21; Admin Dose 1 TAB; Start 05/27/18 at 14:00 Albuterol (Ventolin Hfa) 2 puff Q4H RESP THERAPY PRN INH WHEEZING AND SOB; Start 05/28/18 at 18:00 Linezolid (Zyvox) 600 mg BID PO Last administered on 06/06/18 08:35; Admin Dose 600 MG; Start 05/29/18 at 13:30 Enoxaparin Sodium (Lovenox) 40 mg DAILY SC Last administered on 06/04/18 08:37; Admin Dose 40 MG; Start 05/31/18 at 09:00 Morphine Sulfate (morphine) 6 mg Q4H PRN PO SEVERE PAIN LEVEL 7-10 Last adm inistered on 06/03/18at 05:30; Admin Dose 6 MG; Start 06/02/18 at 23:30 Naproxen (Naprosyn) 500 mg Q8H PRN PO MILD PAIN LEVEL 1-3; Start 06/03/18 at 15:30 Oxycodone HCl (Roxicodone) 5 mg Q4H PRN PO MODERATE PAIN LEVEL 4-6 Last administered on 06/04/18at 20:59; Admin Dose 5 MG; Start 06/03/18 at 15:30 Morphine Sulfate (morphine) 2 mg Q4H PRN IV SEVERE PAIN LEVEL 7-10 Last administered on 06/06/18at 13:20; Admin Dose 2 MG; Start 06/05/18 at 03:30 KASIE PARK MD Jun 06, 2018 14:31
[2018-06-06 14:50] VITALS: BP 132/62; PULSE 92; RESP 20
--- NOTE | 2018-06-06 16:51 | CONS ---
Consultation Date/Type/Reason Admit Date/Time May 29, 2018 at 08:05 Initial Consult Date SUBJECTIVE: Pt is awake, alert,a febrile. No acute events over night. VS: stable. T: 98.0 LABS: Reviewed. Antimicrobials: Zyvox Allergies: Zosyn Physical examination: GEN: Well-developed obese middle-aged man in no distress. HENT: Head atraumatic normocephalic, sclera nonicteric vehicle mucosa pink, neck is supple PULM: chest rise symmetrical breath sounds clear Heart: S1-S2 Abdomen soft bowel sounds present Extremities with left knee edema erythema and fluctuance on palpation Assessment: 1. 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 Morbid obesity 5. History of spina bifida 6. Hx MRSA col-n Plan: Pt remains stable. Continue abx for treatment for OM==> last dose June 29. S/P Right lower extremity split thickness skin graft. Wound care per podiatry. (Per dw CM Zyvox was approved by insurance.) Date/Time of Note DATE: 06/06/18 TIME: 16:47 Exam/Review of Systems Exam Vitals Vital Signs Date Temp Pulse Resp B/P (MAP) Pulse Ox O2 O2 Flow FiO2 Time Delivery Rate 06/06/18 98.0 92 20 132/62 98 Room Air 14:50 (85) 06/05/18 2.0 13:51 Intake and Output 06/05/18 06/05/18 06/06/18 1515:00 23:00 07:00 IntakeIntake Total 760 ml 240 ml 1000 ml OutputOutput Total 1 ml 400 ml BalanceBalance 759 ml -160 ml 1000 ml Results Result Diagram: 06/05/18 1645 Medications Medication Current Medications IV Flush (NS 3 ml) 3 ml PER PROTOCOL IV ; Start 05/26/18 at 16:30 Ondansetron HCl (Zofran Inj) 4 mg Q6H PRN IV NAUSEA/VOMITING; Start 05/26/18 at 16:30 Acetaminophen (Tylenol Tab) 650 mg Q6H PRN PO .PAIN 1-3 OR TEMP; Start 05/26/18 at 16:30 Acetaminophen (Tylenol Supp) 650 mg Q6H PRN [place] .PAIN 1-3 OR TEMP; Start 05/26/18 at 16:30 Docusate Sodium (Colace) 100 mg Q12H PRN PO .CONSTIPATION; Start 05/26/18 at 16:30 Magnesium Hydroxide (Milk Of Mag) 30 ml DAILY PRN PO .CONSTIPATION; Start 05/26/18 at 16:30 Bisacodyl (Dulcolax) 5 mg DAILY PRN PO .CONSTIPATION; Start 05/26/18 at 16:30 Bisacodyl (Dulcolax Supp) 10 mg DAILY PRN [place] .CONSTIPATION; Start 05/26/18 at 16:30 Zolpidem Tartrate (Ambien) 5 mg QHS PRN PO .INSOMNIA; Start 05/26/18 at 16:30 Lactobacillus Acidophilus/ Rhamnosus (Culturelle) 1 cap BID PO Last administered on 06/06/18 08:35; Admin Dose 1 CAP; Start 05/26/18 at 21:00 Baclofen (Lioresal) 10 mg TID PO Last administered on 06/06/18 13:20; Admin Dose 10 MG; Start 05/26/18 at 23:00 Gabapentin (Neurontin) 300 mg TID PO Last administered on 06/06/18 13:20; Admin Dose 300 MG; Start 05/26/18 at 23:00 Miscellaneous Information (Pending Santyl Order For Wound Care) This patient lorenzana... PRN PRN XX WOUND CARE; Start 05/27/18 at 01:00 Collagenase (Santyl) 1 applic PRN PRN TOP PRN; Start 05/27/18 at 05:00 Albuterol (Ventolin Hfa) 2 puff Q4H RESP THERAPY PRN INH WHEEZING AND SOB; Start 05/28/18 at 18:00 Linezolid (Zyvox) 600 mg BID PO Last administered on 06/06/18 08:35; Admin Dose 600 MG; Start 05/29/18 at 13:30 Enoxaparin Sodium (Lovenox) 40 mg DAILY SC Last administered on 06/04/18 08:37; Admin Dose 40 MG; Start 05/31/18 at 09:00 Naproxen (Naprosyn) 500 mg Q8H PRN PO MILD PAIN LEVEL 1-3; Start 06/03/18 at 15:30 LENI UNGER Jun 06, 2018 16:51
--- NOTE | 2018-06-06 18:31 | CONS ---
Assessment/Plan Assessment/Plan Assessment/Plan (Daily) RLE neuropathic ulcer s/p split thickness skin graft and application of cast. RLE wound dehiscence RLE osteomyelitis Spina bifida Peripheral neuropathy Plan: Cast to remain clean dry and intact and no weight bearing to the right lower extremity. Patient will need to continue with IV abx per ID recommendations. Patient stable from podiatry standpoint and can follow up in outpatient [facility] clinic. Consultation Date/Type/Reason Admit Date/Time May 29, 2018 at 08:05 Initial Consult Date Date/Time of Note DATE: 06/06/18 TIME: 18:30 24 HR Interval Summary Free Text/Dictation No acute events overnight. Exam/Review of Systems Exam Vitals Vital Signs Date Temp Pulse Resp B/P (MAP) Pulse Ox O2 O2 Flow FiO2 Time Delivery Rate 06/06/18 98.0 92 20 132/62 98 Room Air 14:50 (85) 06/05/18 2.0 13:51 Intake and Output 06/05/18 06/05/18 06/06/18 1515:00 23:00 07:00 IntakeIntake Total 760 ml 240 ml 1000 ml OutputOutput Total 1 ml 400 ml BalanceBalance 759 ml -160 ml 1000 ml Exam Cast clean dry and intact, no strikethrough drainage, no proximal streaking. Donor site clean dry and intact without strikethrough or proximal streaking. Results Result Diagram: 06/05/18 1645 Medications Medication Current Medications IV Flush (NS 3 ml) 3 ml PER PROTOCOL IV ; Start 05/26/18 at 16:30 Ondansetron HCl (Zofran Inj) 4 mg Q6H PRN IV NAUSEA/VOMITING; Start 05/26/18 at 16:30 Acetaminophen (Tylenol Tab) 650 mg Q6H PRN PO .PAIN 1-3 OR TEMP; Start 05/26/18 at 16:30 Acetaminophen (Tylenol Supp) 650 mg Q6H PRN [place] .PAIN 1-3 OR TEMP; Start 05/26/18 at 16:30 Docusate Sodium (Colace) 100 mg Q12H PRN PO .CONSTIPATION; Start 05/26/18 at 16:30 Magnesium Hydroxide (Milk Of Mag) 30 ml DAILY PRN PO .CONSTIPATION; Start 05/26/18 at 16:30 Bisacodyl (Dulcolax) 5 mg DAILY PRN PO .CONSTIPATION; Start 05/26/18 at 16:30 Bisacodyl (Dulcolax Supp) 10 mg DAILY PRN [place] .CONSTIPATION; Start 05/26/18 at 16:30 Zolpidem Tartrate (Ambien) 5 mg QHS PRN PO .INSOMNIA; Start 05/26/18 at 16:30 Lactobacillus Acidophilus/ Rhamnosus (Culturelle) 1 cap BID PO Last administered on 06/06/18 08:35; Admin Dose 1 CAP; Start 05/26/18 at 21:00 Baclofen (Lioresal) 10 mg TID PO Last administered on 06/06/18 13:20; Admin Dose 10 MG; Start 05/26/18 at 23:00 Gabapentin (Neurontin) 300 mg TID PO Last administered on 06/06/18 13:20; Admin Dose 300 MG; Start 05/26/18 at 23:00 Miscellaneous Information (Pending Santyl Order For Wound Care) This patient lorenzana... PRN PRN XX WOUND CARE; Start 05/27/18 at 01:00 Collagenase (Santyl) 1 applic PRN PRN TOP PRN; Start 05/27/18 at 05:00 Albuterol (Ventolin Hfa) 2 puff Q4H RESP THERAPY PRN INH WHEEZING AND SOB; Start 05/28/18 at 18:00 Linezolid (Zyvox) 600 mg BID PO Last administered on 06/06/18 08:35; Admin Dose 600 MG; Start 05/29/18 at 13:30 Enoxaparin Sodium (Lovenox) 40 mg DAILY SC Last administered on 06/04/18 08:37; Admin Dose 40 MG; Start 05/31/18 at 09:00 Naproxen (Naprosyn) 500 mg Q8H PRN PO MILD PAIN LEVEL 1-3; Start 06/03/18 at 15:30 Oxycodone/ Acetaminophen (Endocet (10/ 325)) 1 tab Q4H PRN PO PAIN Last administered on 06/06/18 18:14; Admin Dose 1 TAB; Start 06/06/18 at 18:00 LUCINA RINALDI DPM Jun 06, 2018 18:31
[2018-06-06 20:00] VITALS: BP 147/82; PULSE 105; RESP 18
[2018-06-07 02:00] VITALS: BP 123/55; PULSE 80; RESP 18
[2018-06-07] MEDS: OXYCODONE/ACETAMINOPHEN (10/325) TAB PO PRN ×3 (05:49→14:23)
[2018-06-07 08:33] VITALS: BP 140/87; PULSE 83; RESP 17
[2018-06-07] MEDS: ENOXAPARIN 40 MG/0.4 ML SYG SC SCH (09:00)
[2018-06-07] MEDS ORDERED: LINE600T33 PO (09:41)
--- NOTE | 2018-06-07 09:42 | PDOCDIS ---
Discharge Instructions DIAGNOSIS Discharge Diagnosis Osteomyelitis CONDITION [id number] Patient Condition: [id number] Stable FOLLOW UP/APPOINTMENTS Follow-up Plan Take your antibiotics as prescribed. Make an appointment with Dr Singletary in the amputation prevention center in the next 1-2 weeks KASIE PARK MD Jun 07, 2018 09:42
[2018-06-07] MEDS: ZYVOX 600 MG TAB PO SCH (09:48)
[2018-06-07] MEDS: LACTOBACILLUS RHAMNOSUS CAP PO SCH (09:48)
[2018-06-07] MEDS: GABAPENTIN 300 MG CAP PO SCH ×2 (09:48→12:57)
[2018-06-07] MEDS: BACLOFEN 10 MG TAB PO SCH ×2 (09:48→12:57)
--- NOTE | 2018-06-07 12:51 | CONS ---
Consultation Date/Type/Reason Admit Date/Time May 29, 2018 at 08:05 Initial Consult Date SUBJECTIVE: Pt is awake, alert,a febrile. No acute events over night. VS: stable. T: 97.9 LABS: Reviewed. Antimicrobials: Zyvox Allergies: Zosyn Physical examination: GEN: Well-developed obese middle-aged man in no distress. HENT: Head atraumatic normocephalic, sclera nonicteric vehicle mucosa pink, neck is supple PULM: chest rise symmetrical breath sounds clear Heart: S1-S2 Abdomen soft bowel sounds present Extremities with left knee edema erythema and fluctuance on palpation Assessment: 1. 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 Morbid obesity 5. History of spina bifida 6. Hx MRSA col-n Plan: Pt remains stable. Continue abx for treatment for OM==> last dose June 29. S/P Right lower extremity split thickness skin graft. Wound care per podiatry. (Per dw CM Zyvox was approved by insurance.) D/C planning today Date/Time of Note DATE: 06/07/18 TIME: 12:50 Exam/Review of Systems Exam Vitals Vital Signs Date Temp Pulse Resp B/P (MAP) Pulse Ox O2 O2 Flow FiO2 Time Delivery Rate 06/07/18 97.9 83 17 140/87 98 Room Air 08:33 (104) 06/05/18 2.0 13:51 Intake and Output 06/06/18 06/06/18 06/07/18 1515:00 23:00 07:00 IntakeIntake Total 940 ml 1000 ml BalanceBalance 940 ml 1000 ml Results Result Diagram: 06/05/18 1645 Medications Medication Current Medications IV Flush (NS 3 ml) 3 ml PER PROTOCOL IV ; Start 05/26/18 at 16:30 Ondansetron HCl (Zofran Inj) 4 mg Q6H PRN IV NAUSEA/VOMITING; Start 05/26/18 at 16:30 Acetaminophen (Tylenol Tab) 650 mg Q6H PRN PO .PAIN 1-3 OR TEMP; Start 05/26/18 at 16:30 Acetaminophen (Tylenol Supp) 650 mg Q6H PRN [place] .PAIN 1-3 OR TEMP; Start 05/26/18 at 16:30 Docusate Sodium (Colace) 100 mg Q12H PRN PO .CONSTIPATION; Start 05/26/18 at 16:30 Magnesium Hydroxide (Milk Of Mag) 30 ml DAILY PRN PO .CONSTIPATION; Start 05/26/18 at 16:30 Bisacodyl (Dulcolax) 5 mg DAILY PRN PO .CONSTIPATION; Start 05/26/18 at 16:30 Bisacodyl (Dulcolax Supp) 10 mg DAILY PRN [place] .CONSTIPATION; Start 05/26/18 at 16:30 Zolpidem Tartrate (Ambien) 5 mg QHS PRN PO .INSOMNIA; Start 05/26/18 at 16:30 Lactobacillus Acidophilus/ Rhamnosus (Culturelle) 1 cap BID PO Last administered on 06/07/18 09:48; Admin Dose 1 CAP; Start 05/26/18 at 21:00 Baclofen (Lioresal) 10 mg TID PO Last administered on 06/07/18 09:48; Admin Dose 10 MG; Start 05/26/18 at 23:00 Gabapentin (Neurontin) 300 mg TID PO Last administered on 06/07/18 09:48; Admin Dose 300 MG; Start 05/26/18 at 23:00 Miscellaneous Information (Pending Santyl Order For Wound Care) This patient lorenzana... PRN PRN XX WOUND CARE; Start 05/27/18 at 01:00 Collagenase (Santyl) 1 applic PRN PRN TOP PRN; Start 05/27/18 at 05:00 Albuterol (Ventolin Hfa) 2 puff Q4H RESP THERAPY PRN INH WHEEZING AND SOB; Start 05/28/18 at 18:00 Linezolid (Zyvox) 600 mg BID PO Last administered on 06/07/18 09:48; Admin Dose 600 MG; Start 05/29/18 at 13:30 Enoxaparin Sodium (Lovenox) 40 mg DAILY SC Last administered on 06/04/18 08:37; Admin Dose 40 MG; Start 05/31/18 at 09:00 Naproxen (Naprosyn) 500 mg Q8H PRN PO MILD PAIN LEVEL 1-3; Start 06/03/18 at 15:30 Oxycodone/ Acetaminophen (Endocet (10/ 325)) 1 tab Q4H PRN PO PAIN Last administered on 3/10/19at 09:49; Admin Dose 1 TAB; Start 06/06/18 at 18:00 LENI UNGER Jun 07, 2018 12:50
[2018-06-07 15:00] VITALS: BP 142/71; PULSE 86; RESP 17
--- NOTE | 2018-06-07 15:57 | DS ---
Date/Time of Note Date/Time of Note DATE: 06/07/18 TIME: 15:56 Discharge Summary Admission/Discharge Info Admit Date/Time May 29, 2018 at 08:05 Discharge Date/Time Discharge Diagnosis Osteomyelitis Patient Condition: Stable Hospital Course 28 yo male with spina bifida leading to paraplegia presents wtih OM of his foot Wound vac was placed and foot was debrided. He was treated with linezolid guided by cultures by ID services. He had repeat operation by podiatry and disc harged to home to complete linezolid course. Home Meds Active Scripts Linezolid (Linezolid) 600 Mg Tablet, 600 MG PO BID for 21 Days, #42 TAB Prov:KASIE PARK MD 06/07/18 Ranitidine Hcl* (Ranitidine Hcl*) 150 Mg Tablet, 150 MG PO HS, #30 TAB 2 Refills Prov:NAHEED VALDIVIAP S. 05/12/18 Mupirocin* (Bactroban*) 2% -22 Gram Oint...g., 1 APPLIC TOP BID, #1 BOTTLE 1 Refill Prov:SHEAMARLY S. 05/12/18 Collagenase* (Santyl*) 30 Gm Oint..gm., 1 APPLIC TOP DAILY, #1 BOTTLE 1 Refill Prov:SHEAMARLY S. 05/12/18 Clotrimazole (Clotrim) 15 Gm Cr, 1 APPLIC TOP BID, #1 BOTTLE 1 Refill Prov:JAVIERMARLY S. 05/12/18 Ammonium Lactate* (Lac-Hydrin* 12% (225gm)) 1 Applic Lotion, 1 APPLIC TOP DAILY, #1 BOTTLE 1 Refill Prov:SHEAMARLY S. 05/12/18 Baclofen* (Baclofen*) 10 Mg Tablet, 10 MG PO TID, #90 TAB Prov:MARLY VALDIVIA S. 05/12/18 Gabapentin* (Gabapentin*) 300 Mg Capsule, 300 MG PO TID, #90 CAP Prov:MARLY VALDIVIA S. 05/12/18 Reported Medications Phenazopyridine Hcl* (Phenazopyridine Hcl*) 200 Mg Tablet, 200 MG PO TID, TAB FOR 3 DAYS 04/10/18 Follow-up Plan Take your antibiotics as prescribed. Make an appointment with Dr Singletary in the amputation prevention center in the next 1-2 weeks Primary Care Provider Not On Staff Doctor KASIE PARK MD Jun 07, 2018 15:57
== END 2018-06-07 17:22 | disposition home health service (06) | DRG 463 ==
LOC: E/R 10:25 → PP2 15:45 → OBSVTOIN 05-29 08:05
PROVIDERS: ADMIT Internal Medicine; ATTEND Internal Medicine
PROC: 05H633Z Insertion of Infusion Device into Left Subclavian Vein, Percutaneous Approach (ICD-10-PCS; 2018-05-28)
PROC: 0HBKXZZ Excision of Right Lower Leg Skin, External Approach (ICD-10-PCS; 2018-06-05)
PROC: 0HRKX74 Replacement of Right Lower Leg Skin with Autologous Tissue Substitute, Partial Thickness, External Approach (ICD-10-PCS; principal; 2018-06-05 15:30)
DX: M86.271 Subacute osteomyelitis, right ankle and foot (principal); L89.513 Pressure ulcer of right ankle, stage 3; L89.893 Pressure ulcer of other site, stage 3; T81.30XA Disruption of wound, unspecified, initial encounter; G82.20 Paraplegia, unspecified; G91.9 Hydrocephalus, unspecified; Z68.41 Body mass index [BMI] 40.0-44.9, adult; L89.159 Pressure ulcer of sacral region, unspecified stage; Q05.9 Spina bifida, unspecified; F12.10 Cannabis abuse, uncomplicated; Z72.0 Tobacco use; Z98.2 Presence of cerebrospinal fluid drainage device; E66.01 Morbid (severe) obesity due to excess calories; N31.2 Flaccid neuropathic bladder, not elsewhere classified; K76.0 Fatty (change of) liver, not elsewhere classified; G62.9 Polyneuropathy, unspecified; B95.62 Methicillin resistant Staphylococcus aureus infection as the cause of diseases classified elsewhere
CPT/HCPCS: 71045; 71555; 80053; 80202; 82565; 84520; 85025; 86704; 86709; 86803; 87081; 87340; G0378; C1751; J1100; J1170; J1644; J1650; J2175; J2250; J2270; J2405; J2997; J3010; J3370; J7040

== ENCOUNTER 2018-07-14 10:30 | Emergency (ER) | payer OTHER ==
[~2018-07-14] VITALS: Ht 172.7 cm; Wt 95.4 kg
[~2018-07-14 10:30] MED LIST changes: +LINE600T33 PO
[2018-07-14 10:35] VITALS: BP 146/65; PULSE 110; RESP 20; Ht 172.7 cm; Wt 95.4 kg
[2018-07-14] MEDS ORDERED: CEFI400C PO (10:53)
--- NOTE | 2018-07-14 13:06 | ERD ---
ER Documentation Chief Complaint Chief Complaint right side flank pain/pain with urination x 3 days HPI Patient is a 28-year-old male with spina bifida and frequent UTIs who presents saying "I feel like I have a UTI". He is not currently on antibiotics. He said his symptoms started 2 days ago. He has no fevers. He does report pain and chills. On review of old medical records his last culture showed that he was sensitive to cefotaxime. Upon review of old medical records the patient has multiple visits to the ER for similar. Review of the emergency department in formation exchange system shows visits to 2 separate emergency departments for a total of 23 visits in the past year. ROS All systems reviewed and are negative except as per history of present illness. Medications Home Meds Active Scripts Cefixime (Suprax) 400 Mg Capsule, 400 MG PO DAILY for 14 Days, CAP Prov:SUSAN HATHAWAY MD 07/14/18 Linezolid (Linezolid) 600 Mg Tablet, 600 MG PO BID for 21 Days, #42 TAB Prov:KASIE PARK MD 06/07/18 Ranitidine Hcl* (Ranitidine Hcl*) 150 Mg Tablet, 150 MG PO HS, #30 TAB 2 Refills Prov:MARLY VALDIVIA S. 05/12/18 Mupirocin* (Bactroban*) 2% -22 Gram Oint...g., 1 APPLIC TOP BID, #1 BOTTLE 1 Refill Prov:MARLY VALDIVIA S. 05/12/18 Collagenase* (Santyl*) 30 Gm Oint..gm., 1 APPLIC TOP DAILY, #1 BOTTLE 1 Refill Prov:MARLY VALDIVIA S. 05/12/18 Clotrimazole (Clotrim) 15 Gm Cr, 1 APPLIC TOP BID, #1 BOTTLE 1 Refill Prov:NAHEED VALDIVIAP S. 05/12/18 Ammonium Lactate* (Lac-Hydrin* 12% (225gm)) 1 Applic Lotion, 1 APPLIC TOP DAILY, #1 BOTTLE 1 Refill Prov:NAHEED VALDIVIAP S. 05/12/18 Baclofen* (Baclofen*) 10 Mg Tablet, 10 MG PO TID, #90 TAB Prov:MARLY VALDIVIA S. 05/12/18 Gabapentin* (Gabapentin*) 300 Mg Capsule, 300 MG PO TID, #90 CAP Prov:MARLY VALDIVIA S. 05/12/18 Discontinued Reported Medications Phenazopyridine Hcl* (Phenazopyridine Hcl*) 200 Mg Tablet, 200 MG PO TID, TAB FOR 3 DAYS 04/10/18 Allergies Allergies: Coded Allergies: latex (Unverified Allergy, Intermediate, RASH, 07/14/18) ketorolac (Unverified Allergy, Mild, RASH, 07/14/18) papaya (Unverified Allergy, Mild, 07/14/18) piperacillin (Unverified Allergy, Mild, 07/14/18) tazobactam (Unverified Allergy, Mild, 07/14/18) ibuprofen (Unverified Allergy, Unknown, LIP SWELLING, STATED THROAT IS CLOSING, 07/14/18) PMhx/Soc History of Surgery: Yes (Hx of CONSULTANT NURSE shunt, hx of bilateral knee sx, R ankle sx, cholecystectomy, myelo) Anesthesia Reaction: No Hx Neurological Disorder: Yes (Spina bifida ) Hx Respiratory Disorders: No Hx Cardiac Disorders: No Hx Psychiatric Problems: No Hx Miscellaneous Medical Probl: No Hx Alcohol Use: No Hx Substance Use: Yes (Marijuana) Hx Tobacco Use: Yes Smoking Status: Never smoker FmHx Family History: No diabetes Physical Exam Vitals Vital Signs Date Temp Pulse Resp B/P (MAP) Pulse Ox O2 O2 Flow FiO2 Time Delivery Rate 07/14/18 97.6 110 20 146/65 96 10:35 (92) Physical Exam Const: No acute distress Head: Atraumatic Eyes: Normal Conjunctiva ENT: Normal External Ears, Nose and Mouth. Neck: Full range of motion. No meningismus. Resp: Clear to auscultation bilaterally Cardio: Regular rate and rhythm, no murmurs Abd: Soft, non tender, non distended. Normal bowel sounds Skin: No petechiae or rashes Back: No midline or flank tenderness Ext: No cyanosis, or edema Neur: Awake and alert, in a wheelchair chronically from spina bifida Procedures/MDM Patient was unable to provide a urine sample and does not want to stay longer. Patient is a 28-year-old male who presents with symptoms of urinary tract infection. He gets frequent UTIs because of his spina bifida and lower extremity paralysis. The patient will be given a prescription for Suprax as his last urine culture was sensitive to cefotaxime. I do not believe the patient requires admission the hospital at this time. I doubt sepsis. The patient is otherwise well-appearing. He should follow-up with his primary doctor within 24-48 hours. 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 SUSAN HATHAWAY MD Jul 14, 2018 13:06
== END 2018-07-14 11:15 | disposition home or self-care (01) ==
LOC: E/R 10:30
DX: N30.90 Cystitis, unspecified without hematuria (principal); Z91.040 Latex allergy status
CPT/HCPCS: 99283

== ENCOUNTER 2018-07-16 10:08 | Emergency (ER) | payer OTHER ==
[~2018-07-16] VITALS: Ht 157.5 cm; Wt 104.0 kg
[~2018-07-16 10:08] MED LIST changes: +CEFI400C PO; -PHEN-717 PO
[2018-07-16 10:17] VITALS: BP 167/5; PULSE 76; RESP 18; Ht 157.5 cm; Wt 104.0 kg
--- NOTE | 2018-07-16 10:34 | ERD ---
ER Documentation Chief Complaint Chief Complaint DYSURIA, RIGHT FLANK PAIN, MED. NOT HELPING. SEEN HERE 2 DAYS AGO. HPI 28-year-old male, wheelchair bounded due to spina bifida, presents to the emergency department, referred by Dr. Singletary from the amputation prevention center at [facility] for a bilateral venous Doppler. The patient has history of multiple visits to the emergency department for chronic pain and urinary tract infections. Currently no complaints in regards of his urinary symptoms, he is requesting a stronger medication for pain, the patient is allergic to ibuprofen and Tylenol. ROS All systems reviewed and are negative except as per history of present illness. Medications Home Meds Active Scripts Clindamycin Hcl* (Clindamycin Hcl*) 150 Mg Capsule, 150 MG PO QID for 10 Days, CAP Prov:SAVAGE MARVIN MD 07/17/18 Discontinued Reported Medications Phenazopyridine Hcl* (Phenazopyridine Hcl*) 200 Mg Tablet, 200 MG PO TID, TAB FOR 3 DAYS 04/10/18 Discontinued Scripts Cefixime (Suprax) 400 Mg Capsule, 400 MG PO DAILY for 14 Days, CAP Prov:SUSAN HATHAWAY MD 07/14/18 Linezolid (Linezolid) 600 Mg Tablet, 600 MG PO BID for 21 Days, #42 TAB Prov:KASIE PARK MD 06/07/18 Ranitidine Hcl* (Ranitidine Hcl*) 150 Mg Tablet, 150 MG PO HS, #30 TAB 2 Refills Prov:MARLY VALDIVIA S. 05/12/18 Mupirocin* (Bactroban*) 2% -22 Gram Oint...g., 1 APPLIC TOP BID, #1 BOTTLE 1 Refill Prov:MARLY VALDIVIA S. 05/12/18 Collagenase* (Santyl*) 30 Gm Oint..gm., 1 APPLIC TOP DAILY, #1 BOTTLE 1 Refill Prov:MARLY VALDIVIA S. 05/12/18 Clotrimazole (Clotrim) 15 Gm Cr, 1 APPLIC TOP BID, #1 BOTTLE 1 Refill Prov:MARLY VALDIVIA S. 05/12/18 Ammonium Lactate* (Lac-Hydrin* 12% (225gm)) 1 Applic Lotion, 1 APPLIC TOP DAILY, #1 BOTTLE 1 Refill Prov:MARLY VALDIVIA. 05/12/18 Baclofen* (Baclofen*) 10 Mg Tablet, 10 MG PO TID, #90 TAB Prov:MARLY VALDIVIA S. 05/12/18 Gabapentin* (Gabapentin*) 300 Mg Capsule, 300 MG PO TID, #90 CAP Prov:MARLY VALDIVIA S. 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 Head: Atraumatic Eyes: Normal Conjunctiva ENT: Normal External Ears, Nose and Mouth. Neck: Full range of motion. No meningismus. Resp: Clear to auscultation bilaterally Cardio: Regular rate and rhythm, no murmurs Abd: Soft, non tender, non distended. Normal bowel sounds Skin: No petechiae or rashes. Procedures/MDM Vital signs stable; I strongly recommended the use of nonpharmacologic treatment with self-management strategies, behavioral treatments, physical therapy as well as noncontrol pharmacotherapy for chronic pain; however, the patient was not happy with the proposed management therefore he left AGAINST MEDICAL ADVICE after being seen and examined by me. The patient was informed that the evaluation in the emergency department has been done to rule out an acute emergency, therefore, chronic conditions like malignancy or other diseases have not been evaluated; therefore, the patient was instructed to follow up with the primary care provider in the next 48h. If symptoms persist, worsen or new symptoms develop, then patient should return to the ED immediately. Disclaimer: Inadvertent spelling and grammatical errors are likely due to EHR/dictation software use and do not reflect on the overall quality of patient care. Also, please note that the electronic time recorded on this note does not necessarily reflect the actual time of the patient encounter. Departure Diagnosis: Primary Impression: Bilateral leg pain Additional Impressions: Chronic pain Left against medical advice Condition: Stable Additional Instructions: Thank you very much for allowing us to participate in your care. Your health and safety is our top priority at [facility]. Call your primary care doctor TOMORROW for an appointment during the next 2-4 days and bring all the information and medications prescribed. Have prescriptions filled and follow precisely the directions on the label. If the symptoms get worse and your provider is unavailable, return to the Emergency Department immediately. ARUN CHOUDHURY MD Jul 16, 2018 10:34
[2018-07-17] MEDS ORDERED: CLIN150C18 PO (13:16)
== END 2018-07-16 10:55 | disposition left against medical advice (07) ==
LOC: FTE 10:08
DX: M79.604 Pain in right leg (principal); M79.605 Pain in left leg; Z87.891 Personal history of nicotine dependence; Z91.040 Latex allergy status
CPT/HCPCS: 99282

== ENCOUNTER 2018-07-17 09:39 | Emergency (ER) | payer OTHER ==
[~2018-07-17] VITALS: Wt 105.0 kg
[2018-07-17] MEDS ORDERED: HYDROmorphONE 1 MG/ML SYG IV STA ×2 (10:15→12:01)
[2018-07-17] MEDS ORDERED: ONDANSETRON 4 MG INJ IV STA ×2 (10:15→12:01)
[2018-07-17] MEDS ORDERED: CLINDAMYCIN 900 MG/D5W (PMX) 50 ML IVPB STA (12:02)
[2018-07-17] MEDS ORDERED: VANCOMYCIN 1 GM (PMX) 250 ML IVPB STA (12:02)
--- NOTE | 2018-07-17 13:09 | ERD ---
ER Documentation Chief Complaint Chief Complaint FLANK PAIN/POST OP WOUND OPENING HPI This is a 28-year-old male with a past medical history of spina bifida. The patient is wheelchair-bound. The patient had a known history of sacral decubitus ulcers. He has a history of neurogenic bladder. The patient presents to the emergency department today as he has an open wound on his right ankle. He indicates this is been seen and evaluated before by his airways operations specialist however 48 hours prior to arrival the patient noticed purulent drainage from the wound with some surrounding pain and redness. The wound started to become larger in size. He stated there had been ROS All systems reviewed and are negative except as per history of present illness. Medications Home Meds Discontinued Reported Medications Phenazopyridine Hcl* (Phenazopyridine Hcl*) 200 Mg Tablet, 200 MG PO TID, TAB FOR 3 DAYS 04/10/18 Discontinued Scripts Cefixime (Suprax) 400 Mg Capsule, 400 MG PO DAILY for 14 Days, CAP Prov:SUSAN HATHAWAY MD 07/14/18 Linezolid (Linezolid) 600 Mg Tablet, 600 MG PO BID for 21 Days, #42 TAB Prov:KASIE PARK MD 06/07/18 Ranitidine Hcl* (Ranitidine Hcl*) 150 Mg Tablet, 150 MG PO HS, #30 TAB 2 Refills Prov:MARLY VALDIVIA S. 05/12/18 Mupirocin* (Bactroban*) 2% -22 Gram Oint...g., 1 APPLIC TOP BID, #1 BOTTLE 1 Refill Prov:MARLY VALDIVIA S. 05/12/18 Collagenase* (Santyl*) 30 Gm Oint..gm., 1 APPLIC TOP DAILY, #1 BOTTLE 1 Refill Prov:MARLY VALDIVIA S. 05/12/18 Clotrimazole (Clotrim) 15 Gm Cr, 1 APPLIC TOP BID, #1 BOTTLE 1 Refill Prov:MARLY VALDIVIA S. 05/12/18 Ammonium Lactate* (Lac-Hydrin* 12% (225gm)) 1 Applic Lotion, 1 APPLIC TOP DAILY, #1 BOTTLE 1 Refill Prov:MARLY VALDIVIA S. 05/12/18 Baclofen* (Baclofen*) 10 Mg Tablet, 10 MG PO TID, #90 TAB Prov:MARLY VALDIVIA S. 05/12/18 Gabapentin* (Gabapentin*) 300 Mg Capsule, 300 MG PO TID, #90 CAP Prov:MARLY VALDIVIA S. 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 Well-nourished. HEENT:Normocephalic. Atraumatic.Pupils were equal round reactive to light. Moist mucous membranes.No tonsillar exudates. Neck: No nuchal rigidity. No lymphadenopathy. No posterior cervical spine tenderness or step-offs. Respiratory: Not using accessory muscles of respiration.Lungs were clear to auscultation bilaterally. No rhonchi. No rales. No wheezing. Cardiovascular: Regular rate regular rhythm.No murmurs. No rubs were appreciated.S1, S2 normal. Distal pulses are palpable 2+ bilaterally. GI: Abdomen was soft. Nontender. Non Distended. No pulsatile abdominal masses or bruits. No rebound. No guarding. Bowel sounds were present and normal. Muscle skeletal: Full range of motion the bilateral upper extremities. Patient is paralyzed from the waist down therefore no movement of the bilateral lower extremities Skin: No petechia, no purpura. No lesions on the palms or the soles of the feet. No maculopapular rash. Stage I ulcer over the sacral decubitus region. 3 cm x 1 cm wound dehiscence over the right medial malleolus superficial lesion with no purulent drainage, no surrounding erythremia no warmth or tenderness. Hemostasis controlled. NEURO: Patient was alert, awake, orientated x3.No facial droop. Gait not observed as patient is wheelchair-bound with quadriplegia.No focal neurological deficits. Result Diagram: 07/17/18 1100 07/17/18 1100 Results 24 hrs Laboratory Tests Test 07/17/18 11:00 White Blood Count 9.1 10^3/ul Red Blood Count 5.10 10^6/ul Hemoglobin 14.5 g/dl Hematocrit 44.2 % Mean Corpuscular Volume 86.7 fl Mean Corpuscular Hemoglobin 28.4 pg Mean Corpuscular Hemoglobin Concent 32.8 g/dl Red Cell Distribution Width 13.3 % Platelet Count 372 10^3/UL Mean Platelet Volume 9.4 fl Immature Granulocytes % 0.200 % Neutrophils % 65.5 % Lymphocytes % 24.7 % Monocytes % 7.1 % Eosinophils % 2.2 % Basophils % 0.3 % Nucleated Red Blood Cells % 0.0 /100WBC Immature Granulocytes # 0.020 10^3/ul Neutrophils # 6.0 10^3/ul Lymphocytes # 2.3 10^3/ul Monocytes # 0.7 10^3/ul Eosinophils # 0.2 10^3/ul Basophils # 0.0 10^3/ul Nucleated Red Blood Cells # 0.0 10^3/ul Sodium Level 143 mmol/L Potassium Level 4.3 mmol/L Chloride Level 107 mmol/L Carbon Dioxide Level 23 mmol/L Anion Gap 13 Blood Urea Nitrogen 13 mg/dl Creatinine 0.44 mg/dl Est Glomerular Filtrat Rate mL/min > 60 mL/min Glucose Level 103 mg/dl Calcium Level 9.3 mg/dl Total Bilirubin 0.6 mg/dl Direct Bilirubin 0.00 mg/dl Indirect Bilirubin 0.6 mg/dl Aspartate Amino Transf (AST/SGOT) 24 IU/L Alanine Aminotransferase (ALT/SGPT) 22 IU/L Alkaline Phosphatase 116 IU/L Total Protein 8.1 g/dl Albumin 4.3 g/dl Globulin 3.80 g/dl Albumin/Globulin Ratio 1.13 Current Medications Medications Dose Sig/Evaristo Start Time Status Last (Trade) Ordered Route PRN Stop Time Admin Dose Reason Admin 1 mg ONCE STAT 07/17/18 DC 07/17/18 Hydromorphone IV 10:15 10:55 HCl 07/17/18 10:18 (Dilaudid) Ondansetron 4 mg ONCE STAT 07/17/18 DC 07/17/18 HCl (Zofran IV 10:15 10:54 Inj) 07/17/18 10:18 1 mg ONCE STAT 07/17/18 DC 07/17/18 Hydromorphone IV 12:01 12:11 HCl 07/17/18 12:02 (Dilaudid) Ondansetron 4 mg ONCE STAT 07/17/18 DC 07/17/18 HCl (Zofran IV 12:01 12:11 Inj) 07/17/18 12:02 Vancomycin 250 ml @ ONCE STAT 07/17/18 HCl 125 mls/hr IVPB 12:02 07/17/18 14:01 Clindamycin 50 ml @ 50 ONCE STAT 07/17/18 DC 07/17/18 HCl/ mls/hr IVPB 12:02 12:49 Dextrose 07/17/18 13:01 Procedures/MDM The patient presented to the emergency department with a spreading erythematous superficial infection of the skin and subcutaneous tissues. My differential diagnosis included but was not limited to necrotizing fasciitis, lymphangitis, thrombophlebitis, deep vein thrombosis, allergic reaction, neoplasm, gout or abscess. Predisposing factors of the progressive spread of erythema, warmth, pain and tenderness was considered such as lymphedema, tinea pedis, open wounds, prior trauma or surgery, pre-existing skin lesion (furuncle), retained foreign body, injection drug use or vascular or immune compromise. The patient was placed on antibiotics to cover Staphylococcus aureus, including resistant strains such as community-acquired methicillin-resistant S. aureus as radiographic imaging have been obtained and there was concern for osteomyelitis. However when I reviewed previous radiographic imaging and medical notes from recent admission on July 02, 2018 the ankle radiograph had significantly improved. This appears to be a chronic injury. When reviewing the records the patient has drug-seeking behavior. He has self-inflicted wounds in order to be admitted to the hospital. He did receive broad-spectrum antibiotics in the emergency department. He was afebrile with no leukocytosis. The patient continued to request further analgesic medication after receiving 2 doses of opiates. When I refused to give further medication the patient stated he wanted to be discharged. He was discharged home with oral antibiotics and has very good outpatient follow-up. Clinically my suspicion was low for osteomyelitis or necrotizing fasciitis. Departure Diagnosis: Primary Impression: Cellulitis of right ankle Condition: SAVAGE Gonzalez MD Jul 17, 2018 13:09
[2018-07-17] MEDS ORDERED: CLIN150C18 PO (13:16)
[2018-07-17 16:10] VITALS: BP 132/78; PULSE 78; RESP 18
== END 2018-07-17 16:14 | disposition home or self-care (01) ==
LOC: E/R 09:39
DX: L03.115 Cellulitis of right lower limb (principal); R40.2142 Coma scale, eyes open, spontaneous, at arrival to emergency department; R40.2252 Coma scale, best verbal response, oriented, at arrival to emergency department; R40.2362 Coma scale, best motor response, obeys commands, at arrival to emergency department; Z91.040 Latex allergy status
CPT/HCPCS: 73610; 80053; 85025; 87040; 96374; 96375; 96376; J1170; J2405; J3370; Z7502; Z7610

== ENCOUNTER 2018-07-20 14:10 | Emergency (ER) | payer OTHER ==
[~2018-07-20] VITALS: Ht 160 cm; Wt 100.0 kg
[~2018-07-20 14:10] MED LIST changes: -BACL10TA PO; -CEFI400C PO; +CLIN150C18 PO; -CLO15CR1 TOP; -GABA300C16 PO; -LACHYD12 TOP; -LINE600T33 PO; -MUPI22OI2 TOP; -RANI150T5 PO; -SAN30GM TOP
--- NOTE | 2018-07-20 14:15 | ERD ---
ER Documentation Chief Complaint Chief Complaint ROS All systems reviewed and are negative except as per history of present illness. Medications Home Meds Active Scripts Clindamycin Hcl* (Clindamycin Hcl*) 150 Mg Capsule, 150 MG PO QID for 10 Days, CAP Prov:SAVAGE MARVIN MD 07/17/18 Discontinued Reported Medications Phenazopyridine Hcl* (Phenazopyridine Hcl*) 200 Mg Tablet, 200 MG PO TID, TAB FOR 3 DAYS 04/10/18 Discontinued Scripts Cefixime (Suprax) 400 Mg Capsule, 400 MG PO DAILY for 14 Days, CAP Prov:SUSAN HATHAWAY MD 07/14/18 Linezolid (Linezolid) 600 Mg Tablet, 600 MG PO BID for 21 Days, #42 TAB Prov:KASIE PARK MD 06/07/18 Ranitidine Hcl* (Ranitidine Hcl*) 150 Mg Tablet, 150 MG PO HS, #30 TAB 2 Refills Prov:MARLY VALDIVIA S. 05/12/18 Mupirocin* (Bactroban*) 2% -22 Gram Oint...g., 1 APPLIC TOP BID, #1 BOTTLE 1 Refill Prov:MARLY VALDIVIA S. 05/12/18 Collagenase* (Santyl*) 30 Gm Oint..gm., 1 APPLIC TOP DAILY, #1 BOTTLE 1 Refill Prov:MARLY VALDIVIA S. 05/12/18 Clotrimazole (Clotrim) 15 Gm Cr, 1 APPLIC TOP BID, #1 BOTTLE 1 Refill Prov:MARLY VALDIVIA S. 05/12/18 Ammonium Lactate* (Lac-Hydrin* 12% (225gm)) 1 Applic Lotion, 1 APPLIC TOP DAILY, #1 BOTTLE 1 Refill Prov:MARLY VALDIVIA S. 05/12/18 Baclofen* (Baclofen*) 10 Mg Tablet, 10 MG PO TID, #90 TAB Prov:MARLY VALDIVIA S. 05/12/18 Gabapentin* (Gabapentin*) 300 Mg Capsule, 300 MG PO TID, #90 CAP Prov:AVA VALDIVIAEEP S. 05/12/18 Allergies Allergies: Coded Allergies: latex (Unverified Allergy, Intermediate, RASH, 07/17/18) ketorolac (Unverified Allergy, Mild, RASH, 07/17/18) papaya (Unverified Allergy, Mild, 07/17/18) piperacillin (Unverified Allergy, Mild, 07/17/18) tazobactam (Unverified Allergy, Mild, 07/17/18) ibuprofen (Unverified Allergy, Unknown, LIP SWELLING, STATED THROAT IS CLOSING, 07/17/18) PMhx/Soc History of Surgery: Yes (Hx of EQUIPMENT OPERAT0R shunt, hx of bilateral knee sx, R ankle sx, cholecystectomy, myelo) Anesthesia Reaction: No Hx Neurological Disorder: Yes (Spina bifida ) Hx Respiratory Disorders: No Hx Cardiac Disorders: No Hx Psychiatric Problems: No Hx Miscellaneous Medical Probl: No Hx Alcohol Use: No Hx Substance Use: Yes (Marijuana) Hx Tobacco Use: Yes Physical Exam Physical Exam Const: No acute distress Head: Atraumatic Eyes: Normal Conjunctiva ENT: Normal External Ears, Nose and Mouth. Neck: Full range of motion. No meningismus. Resp: Clear to auscultation bilaterally Cardio: Regular rate and rhythm, no murmurs Abd: Soft, non tender, non distended. Normal bowel sounds Skin: No petechiae or rashes Back: No midline or flank tenderness Ext: No cyanosis, or edema Neur: Awake and alert Psych: Normal Mood and Affect SAMY CONTE MD Jul 20, 2018 14:15
[2018-07-20 14:17] VITALS: BP 126/51; PULSE 107; RESP 18; Ht 160 cm; Wt 100.0 kg
--- NOTE | 2018-07-23 23:03 | ERD ---
ER Documentation Chief Complaint Chief Complaint painful urination, pain in right leg HPI 28-year-old male patient with a past medical history of spina bifida, neurogenic bladder, chronic pain, left ulcer noted on his leg presents to the ED stating that he is still having leg pain. Patient is afebrile and nontoxic-appearing. Denies any chest pain, shortness of breath, wheezing, increased redness or swelling. ROS All systems reviewed and are negative except as per history of present illness. 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 shunt, hx of bilateral knee sx, R ankle sx, cholecystectomy, myelo) Anesthesia Reaction: No Hx Neurological Disorder: Yes (Spina bifida ) Hx Respiratory Disorders: No Hx Cardiac Disorders: No Hx Psychiatric Problems: No Hx Miscellaneous Medical Probl: No Hx Alcohol Use: No Hx Substance Use: Yes (Marijuana) Hx Tobacco Use: Yes Smoking Status: Never smoker FmHx Family History: No diabetes, No coronary disease Physical Exam Vitals Vital Signs Date Temp Pulse Resp B/P (MAP) Pulse Ox O2 O2 Flow FiO2 Time Delivery Rate 07/20/18 98.7 107 18 126/51 97 14:17 (76) Physical Exam Const: Vab-hqn-tqlitzhnl, well-nourished. In no acute distress. Head: Atraumatic, normocephalic Eyes: Normal Conjunctiva without injection. No purulent discharge. PERRLA. EOMI ENT: Normal external ear. Ear canal without erythema. Tympanic membrane pearly mcgregor without effusion or bulging. Nasal canal clear with normal turbinates. Moist oropharynx without tonsillar exudates. Non-erythematous pharynx. Uvula midline. No drooling. No trismus. Neck: No cervical midline tenderness. Full range of motion. No meningismus. No cervical lymphadenopathy. No JVD. Resp: Clear to auscultation bilaterally. No wheezing, rhonchi, rales, or crackles. No accessory muscle use. No retractions. Cardio: Regular rate and rhythm. No murmurs, rubs or gallops. Abd: Soft, non tender, non distended. Normal bowel sounds. No palpable masses. No rebound tenderness. No guarding. Negative McBurney's Point. Negative Heaton's Sign. Skin: Normal skin turgor. No petechiae or rashes Back: No midline tenderness. No CVA tenderness. Ext: No cyanosis, or edema. Distal pulses intact bilaterally. Neur: Awake and alert. Normal gait. Normal coordination. Cranial Nerves II- VII intact. Normal finger to nose. Muscle strength 5/5. Sensation intact. Psych: Normal Mood and Affect Procedures/MDM 28-year-old male patient with a past medical history of spina bifida, neurogenic bladder, chronic pain, left leg ulcer presents to ED complaining of the chronic pain he has had of his left lower leg. States that they wanted him to be admitted however at this time Dr. Montelongo, patient's material loader was consulted and stated that patient can be managed on outpatient basis. Patient's wound was redressed, at this time does not appear to have any erythema, purulent discharge. Patient's ulcer is likely chronic. Patient's pain is chronic. Patient's material loader stated that patient did not need to take antibiotics and is appropriate for outpatient management. Patient's extremity symptoms have stabilized while they have been evaluated in the department and are appropriate for outpatient follow up. No evidence of fractures, dislocations, compartment syndrome, neurologic injury, vascular injury, open joint, open fracture, tendon laceration, septic arthritis, osteomyelitis, DVT, foreign body, or other emergent conditions. Low suspicion for testicular torsion, gastritis, GERD, peptic ulcer disease, cholecystitis, choledocholithiasis, cholangitis, pancreatitis, appendicitis, bowel obstruction, ileus, volvulus, nephrolithiasis, pyelonephritis, hepatitis, perforated viscus, diverticulitis, abdominal hernia, acute abdomen, mesenteric ischemia or other emergent conditions. Discussed with Dr. Yu who agreed with the management discharge plan. Discussed with Dr. Yu who agreed with the management and discharge plan. Patient is appropriate to to follow up outpatient with PCP. Diagnosis: Chronic Pain Follow up with primary care physician in 1-2 days. Instructed patient to return to the ED sooner for any worsening symptoms. Patient's questions were answered. Patient is hemodynamically stable. Patient understood and agreed with discharge plan. Patient discharged stable. Disclaimer: Inadvertent spelling and grammatical errors are likely due to EHR/dictation software use and do not reflect on the overall quality of patient care. Also, please note that the electronic time recorded on this note does not necessarily reflect the actual time of the patient encounter. Departure Diagnosis: Primary Impression: Chronic pain Chronic pain type: other chronic pain Qualified Codes: G89.29 - Other chronic pain Condition: Stable Patient Instructions: Pain Management Referrals: LUCINA RINALDI Courtney [facility] YOU HAVE RECEIVED A MEDICAL SCREENING EXAM AND THE RESULTS INDICATE THAT YOU DO NOT HAVE A CONDITION THAT REQUIRES URGENT TREATMENT IN THE EMERGENCY DEPARTMENT. FURTHER EVALUATION AND TREATMENT OF YOUR CONDITION CAN WAIT UNTIL YOU ARE SEEN IN YOUR DOCTORS OFFICE WITHIN THE NEXT 1-2 DAYS. IT IS YOUR RESPONSIBILITY TO MAKE AN APPOINTMENT FOR FOLOW-UP CARE. IF YOU HAVE A PRIMARY DOCTOR --you should call your primary doctor and schedule an appointment IF YOU DO NOT HAVE A PRIMARY DOCTOR YOU CAN CALL OUR PHYSICIAN REFERRAL HOTLINE AT IF YOU CAN NOT AFFORD TO SEE A PHYSICIAN YOU CAN CHOSE FROM THE FOLLOWING [facility] [address] [facility]. [facility] [address] [facility]. [facility] [address] [facility]. [facility] [address] [facility] [address], [facility]. [facility]. [address] [facility] YOU HAVE RECEIVED A MEDICAL SCREENING EXAM AND THE RESULTS INDICATE THAT YOU DO NOT HAVE A CONDITION THAT REQUIRES URGENT TREATMENT IN THE EMERGENCY DEPARTMENT. FURTHER EVALUATION AND TREATMENT OF YOUR CONDITION CAN WAIT UNTIL YOU ARE SEEN IN YOUR DOCTORS OFFICE WITHIN THE NEXT 1-2 DAYS. IT IS YOUR RESPONSIBILITY TO MAKE AN APPOINTMENT FOR FOLOW-UP CARE. IF YOU HAVE A PRIMARY DOCTOR --you should call your primary doctor and schedule and appointment IF YOU DO NOT HAVE A PRIMARY DOCTOR YOU CAN CALL OUR PHYSICIAN REFERRAL HOTLINE AT . IF YOU CAN NOT AFFORD TO SEE A PHYSICIAN YOU CAN CHOSE FROM THE FOLLOWING [facility] INSTITUTIONS: [facility] [address] [place] [address] [facility] [address] [place], [place] [id number] [place] [address] [address] [place] [address] [facility] URGENT CARE/SPECIALTIES Additional Instructions: Call your primary care doctor TOMORROW for an appointment during the next 2-3 days for a referral to see a pain management physician.See the doctor sooner or return here if your condition worsens before your appointment time. MERY HURTADO PA-C Jul 23, 2018 23:03
== END 2018-07-20 16:31 | disposition home or self-care (01) ==
LOC: FTE 14:10
DX: M79.604 Pain in right leg (principal); Z87.891 Personal history of nicotine dependence; Z91.040 Latex allergy status
CPT/HCPCS: 99282

== ENCOUNTER 2018-07-29 14:59 | Emergency (ER) | payer OTHER ==
[~2018-07-29] VITALS: Wt 104.5 kg
[2018-07-29 15:07] VITALS: BP 149/83; PULSE 122; RESP 22; Wt 104.5 kg
--- NOTE | 2018-07-29 17:22 | ERD ---
ER Documentation Chief Complaint Chief Complaint RLE to R hip pain; seen previously by Dr. Dominguez pending surgery. HPI 28-year-old male, with a history of spina bifida, wheelchair bounded, presents to the emergency department, complaining of worsening of right lower extremity pain, the pain is dull, constant, 8/10. The patient is requesting pain medication. ROS All systems reviewed and are negative except as per history of present illness. 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, hx of bilateral knee sx, R ankle sx, cholecystectomy, myelo) Anesthesia Reaction: No Hx Neurological Disorder: Yes (Spina bifida ) Hx Respiratory Disorders: No Hx Cardiac Disorders: No Hx Psychiatric Problems: No Hx Miscellaneous Medical Probl: No Hx Alcohol Use: No Hx Substance Use: Yes (Marijuana) Hx Tobacco Use: Yes Smoking Status: Current every day smoker FmHx Family History: No diabetes, No coronary disease Physical Exam Vitals Vital Signs Date Temp Pulse Resp B/P (MAP) Pulse Ox O2 O2 Flow FiO2 Time Delivery Rate 07/29/18 99.9 122 22 149/83 96 15:07 (105) Physical Exam Const: No acute distress wheelchair bounded Procedures/MDM The patient left the emergency department after he was told that the only pain medication that I was going to offer was tramadol, until further work-up gets performed to rule out infection or other emergency. The patient states that tramadol does not do anything for him, therefore, he decided to leave. Departure Diagnosis: Primary Impression: Chronic pain Condition: Stable Additional Instructions: Thank you very much for allowing us to participate in your care. Your health and safety is our top priority at [facility]. Call your primary care doctor TOMORROW for an appointment during the next 2-4 days and bring all the information provided. Have prescriptions filled and follow precisely the directions on the label. If the symptoms get worse and your provider is unavailable, return to the Emergency Department immediately. ARUN CHOUDHURY MD July 29, 2018 17:22
== END 2018-07-29 17:29 | disposition left against medical advice (07) ==
LOC: FTE 14:59
DX: M79.661 Pain in right lower leg (principal); F17.210 Nicotine dependence, cigarettes, uncomplicated; Z91.040 Latex allergy status
CPT/HCPCS: 99282

== ENCOUNTER 2018-08-06 11:36 | Inpatient (IN) | payer OTHER ==
[~2018-08-06] VITALS: Ht 157.5 cm; Wt 95.4 kg
[2018-08-06] MEDS ORDERED: VANCOMYCIN 1 GM (PMX) 250 ML IVPB STA (18:26)
[2018-08-06] MEDS ORDERED: SODIUM CHLORIDE 0.9% 1L BAG IV* STA (18:26)
[2018-08-06] MEDS ORDERED: CIPROFLOXACIN 400MG/D5W 200 ML IVPB STA (18:28)
[2018-08-06] MEDS ORDERED: CLINDAMYCIN 900 MG/D5W (PMX) 50 ML IVPB STA (18:28)
--- NOTE | 2018-08-06 18:52 | ERD ---
ER Documentation Chief Complaint Chief Complaint Pt referred by PMD for admission for surgical procedure. HPI This is a 28-year-old male, with a history of diabetes, history of spina bifida who was sent for admission by surgeon, Dr. Awad for admission of right ankle osteomyelitis, positive wound culture. The patient endorses pain to the area, he denies fever, he has noted purulent drainage. There are no alleviating or aggravating factors, he has no history of recent trauma. ROS All systems reviewed and are negative except as per history of present illness. 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, hx of bilateral knee sx, R ankle sx, cholecystectomy, myelo) Anesthesia Reaction: No Hx Neurological Disorder: Yes (Spina bifida ) Hx Respiratory Disorders: No Hx Cardiac Disorders: No Hx Psychiatric Problems: No Hx Miscellaneous Medical Probl: No Hx Alcohol Use: No Hx Substance Use: Yes (Marijuana) Hx Tobacco Use: Yes Smoking Status: Current every day smoker Physical Exam Vitals Vital Signs Date Temp Pulse Resp B/P (MAP) Pulse Ox O2 O2 Flow FiO2 Time Delivery Rate 08/06/18 97.9 87 14 147/67 97 11:53 (93) Physical Exam Const: No acute distress, well-developed well-nourished Head: Atraumatic Eyes: Normal Conjunctiva ENT: Normal External Ears, Nose and Mouth. Neck: Full range of motion. No meningismus. Resp: Clear to auscultation bilaterally Cardio: Regular rate and rhythm, no murmurs Abd: Soft, non tender, non distended. Normal bowel sounds Skin: No petechiae or rashes Back: No midline or flank tenderness Ext: No cyanosis, or edema. There is a stage II ulcer over the right medial malleolus, there is surrounding erythema there is small amount of purulent drainage noted. Neur: Awake and alert Psych: Normal Mood and Affect Results 24 hrs Current Medications Medications Dose Sig/Evaristo Start Time Status Last (Trade) Ordered Route PRN Stop Time Admin Dose Reason Admin Sodium 2,860 ml BOLUS OVER 2 08/06/18 DC Chloride HOURS STAT 18:26 08/06/18 (NS) IV* 18:28 Vancomycin 250 ml @ ONCE STAT 08/06/18 HCl 125 mls/hr IVPB 18:26 08/06/18 20:25 Clindamycin 50 ml @ 50 ONCE STAT 08/06/18 HCl/ mls/hr IVPB 18:28 08/06/18 Dextrose 19:27 200 ml @ ONCE STAT 08/06/18 Ciprofloxacin 200 mls/hr IVPB 18:28 08/06/18 / Dextrose 19:27 IV Flush 3 ml PER 08/06/18 (NS 3 ml) PROTOCOL IV 19:00 Ondansetron 4 mg Q6H PRN 08/06/18 HCl (Zofran IV 19:00 Inj) NAUSEA/VOMITI NG 650 mg Q6H PRN 08/06/18 Acetaminophen PO .PAIN 1-3 19:00 (Tylenol OR TEMP Tab) Oxycodone/ 1 tab Q6H PRN 08/06/18 Acetaminophen PO .PAINS 19:00 (Percocet 4-6 (5/ 325)) Morphine 2 mg Q4H PRN 08/06/18 Sulfate IV .PAIN 19:00 (morphine) 7-10 Procedures/MDM This is a 28-year-old male with a history of spina bifida, who presents for evaluation of an wound to his right ankle. In clinic today he was evaluated, and this was concerning for possible osteomyelitis,, patient will require admission for IV antibiotics, he has an allergy to Zosyn, thus he will be given vancomycin and Cipro and Flagyl. Patient is otherwise hemodynamic stable. EKG: Rate/Rhythm: Normal Sinus Rhythm QRS, ST, T-waves: No changes consistent w/ acute ischemia Impression: No evidence of ischemia or arrhythmia Accepting Care Team: Current data and ongoing care discussed. Primary: Riley Consulting: none Outstanding Data: none Departure Diagnosis: Primary Impression: Osteomyelitis Osteomyelitis type: unspecified type Osteomyelitis location: unspecified site Qualified Codes: M86.9 - Osteomyelitis, unspecified Condition: Stable GLADYS VARMA MD August 06, 2018 18:52
[2018-08-06] MEDS ORDERED: ACETAMINOPHEN 325 MG TAB PO PRN (19:00)
[2018-08-06] MEDS ORDERED: ONDANSETRON 4 MG INJ IV PRN (19:00)
[2018-08-06] MEDS ORDERED: OXYCODONE/ACETAMINOPHEN (5/325) TAB PO PRN (19:00)
[2018-08-06] MEDS ORDERED: NACL 0.9% 3 ML SYG IV SCH (19:00)
[2018-08-06] MEDS ORDERED: morphine 2 MG INJ IV PRN (19:00)
[2018-08-06] MEDS ORDERED: HYDROmorphONE 2 MG/ML SYG IV STA (19:29)
[2018-08-06] MEDS ORDERED: ONDANSETRON 4 MG INJ IV STA (19:29)
[2018-08-06] MEDS ORDERED: HYDROmorphONE 1 MG/ML SYG ONE (19:32)
[2018-08-06] MEDS ORDERED: HYDROmorphONE 1 MG/ML SYG IV STA (20:47)
[2018-08-06 21:20] VITALS: BP 146/78; PULSE 87; RESP 18
--- NOTE | 2018-08-06 23:50 | HP ---
Date/Time of Note Date/Time of Note DATE: 08/06/18 TIME: 23:50 Assessment/Plan VTE Prophylaxis Pharmacological prophylaxis: heparin Lines/Catheters IV Catheter Type (from Nrsg): Saline Lock Assessment/Plan Assessment/Plan 1. Acute on chronic right ankle infected ulcer: -Patient was sent by Dr. Singletary who will follow patient, plan for surgical in tervention. He has had multiple imaging including MRI in the past, so we will let podiatry decide about need for additional imaging -IV antibiotic 2. Spina bifida: No acute issue 3. Recurrent UTI: IV antibiotic. Follow-up culture results Result Diagram: [id number]/[id number] Results 24hrs Laboratory Tests Test 08/06/18 19:27 08/06/18 21:58 White Blood Count 11.0 #H Red Blood Count 5.43 Hemoglobin 15.1 Hematocrit 47.9 Mean Corpuscular Volume 88.2 Mean Corpuscular Hemoglobin 27.8 L Mean Corpuscular Hemoglobin Concent 31.5 L Red Cell Distribution Width 13.3 Platelet Count 344 Mean Platelet Volume 9.4 Immature Granulocytes % 0.500 H Neutrophils % 58.7 Lymphocytes % 27.5 Monocytes % 8.7 Eosinophils % 4.1 Basophils % 0.5 Nucleated Red Blood Cells % 0.0 Immature Granulocytes # 0.050 H Neutrophils # 6.5 Lymphocytes # 3.0 H Monocytes # 1.0 H Eosinophils # 0.5 Basophils # 0.1 Nucleated Red Blood Cells # 0.0 Prothrombin Time 12.4 Prothrombin Time Ratio 1.0 INR International Normalized Ratio 0.91 Activated Partial Thromboplast Time 31.7 Sodium Level 147 H Potassium Level 3.6 Chloride Level 111 H Carbon Dioxide Level 25 Anion Gap 11 Blood Urea Nitrogen 18 Creatinine 0.61 Est Glomerular Filtrat Rate mL/min > 60 Glucose Level 88 Lactic Acid Level 1.7 1.4 Calcium Level 9.4 Total Bilirubin 0.3 Direct Bilirubin 0.00 Indirect Bilirubin 0.3 Aspartate Amino Transf (AST/SGOT) 19 Alanine Aminotransferase (ALT/SGPT) 19 Alkaline Phosphatase 105 Troponin I < 0.012 Total Protein 8.1 Albumin 4.3 Globulin 3.80 H Albumin/Globulin Ratio 1.13 HPI/ROS Admit Date/Time Admit Date/Time August 06, 2018 at 18:58 Hx of Present Illness This is a 28-year-old male with a history of spina bifida, left sided LOAN CLERK shunt, recurrent UTI, sacral decubitus ulcer, right lower extremity/ankle ulcer. 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 Singletary for acute on chronic right ankle infected ulcer. X-ray shows the following. 1. Exuberant callus formation of the proximal fibula, may reflect the sequela of prior infection or trauma. No significant interval change. 2. Widening of the distal tibial metaphysis with cortical irregularity and incr eased lucency of the medullary space. Findings may reflect the sequela of prior infection or trauma. In the setting of suspected acute infection, MRI is recommended for further evaluation. 3. Widening of the medial ankle mortise. 4. Diffuse soft tissue edema. PMH/Family/Social Past Medical History Medical History: other (See HPI) Medications Current Medications IV Flush (NS 3 ml) 3 ml PER PROTOCOL IV ; Start 08/06/18 at 19:00 Ondansetron HCl (Zofran Inj) 4 mg Q6H PRN IV NAUSEA/VOMITING; Start 08/06/18 at 19:00 Acetaminophen (Tylenol Tab) 650 mg Q6H PRN PO .PAIN 1-3 OR TEMP; Start 08/06/18 at 19:00 Oxycodone/ Acetaminophen (Percocet (5/ 325)) 1 tab Q6H PRN PO .PAINS 4-6; Start 08/06/18 at 19:00 Morphine Sulfate (morphine) 4 mg Q4H PRN IV .PAIN 7-10; Start 08/07/18 at 03:00; Status UNV Phenol (Cepastat Lozenge) 1 lozenge Q1H PRN MT sore throat; Start 08/06/18 at 23:30; Status UNV Coded Allergies: latex (Unverified Allergy, Intermediate, RASH, 08/06/18) ketorolac (Unverified Allergy, Mild, RASH, 08/06/18) papaya (Unverified Allergy, Mild, 08/06/18) piperacillin (Unverified Allergy, Mild, 08/06/18) tazobactam (Unverified Allergy, Mild, 08/06/18) ibuprofen (Unverified Allergy, Unknown, LIP SWELLING, STATED THROAT IS CLOSING, 08/06/18) Past Surgical History Past Surgical Hx: other (HPI) Family History Significant Family History: no pertinent family hx Social History Alcohol Use: other Smoking Status: Current every day smoker Drug Use: other Exam/Review of Systems Vital Signs Vitals Vital Signs Date Temp Pulse Resp B/P (MAP) Pulse Ox O2 O2 Flow FiO2 Time Delivery Rate 08/06/18 97.8 87 18 146/78 96 21:20 (100) 08/06/18 Room Air 20:54 Exam Constitutional: other (No acute distress) Head: normocephalic, atraumatic Eyes: EOMI, PERRL Respiratory: clear to auscultation Cardiovascular: regular rate and rhythm Gastrointestinal: soft Extremities: other (Right ankle infected ulcer) MAMTA SILVESTRE MD August 06, 2018 23:50
[2018-08-07 02:05] VITALS: BP 134/60; PULSE 79; RESP 20
[2018-08-07] MEDS: morphine 2 MG INJ IV PRN ×6 (02:05→21:19)
[2018-08-07] MEDS ORDERED: PENDING SANTYL ORDER FOR WOUND CARE XX PRN (06:00)
[2018-08-07] MEDS ORDERED: VANCOMYCIN IV PER PHARMACY XX SCH (07:00)
[2018-08-07 07:25] VITALS: BP 135/79; PULSE 64; RESP 16
[2018-08-07] MEDS ORDERED: HYDROmorphONE 1 MG/ML SYG IV STA (07:39)
[2018-08-07] MEDS ORDERED: VANCOMYCIN HCL 2 GM in SOD CHLORIDE 0.9% 500 ML IVPB SCH (09:00)
--- NOTE | 2018-08-07 12:21 | PN ---
Date/Time of Note Date/Time of Note DATE: 08/07/18 TIME: 12:17 Assessment/Plan VTE Prophylaxis Risk score (from Ns)>0 risk: 2 SCD applied (from Ns): No SCD contraindicated: low risk/ambulating Pharmacological prophylaxis: LMWH Lines/Catheters IV Catheter [facility] (from [facility]): Saline Lock Assessment/Plan Hospital Course A/P 1. Subacute rt Ulcer; possible imaging/debridement soon. Low perioperative risk, no chest pain dyspnea, may proceed forward to debridement from medical management. 2. Sacral decubitus history. Continue offload, although patient is not adherent to medical management 3. Spina bifida 4. Ftt; 5. Chr Rt ankle OM, sp vanco/ Linezolid/ debridement. Ho port infection? 6. Nonadherence 7. Abnormal LFTs asymptomatic, likely due to hepatic steatosis, stable observe 8. Tobacco abuse/marijuana abuse 9. 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 S: Events noted no fever diarrhea O: Vital signs stable Physical exam No pallor Regular Clear Bowel sounds positive nontender nondistended; overweight; no RRG Right ankle mild tender but possibly chronic Result Diagram: 08/06/18192608/06/181926 Results 24hrs Laboratory Tests Test 08/06/18 19:27 08/06/18 21:58 White Blood Count 11.0 #H Red Blood Count 5.43 Hemoglobin 15.1 Hematocrit 47.9 Mean Corpuscular Volume 88.2 Mean Corpuscular Hemoglobin 27.8 L Mean Corpuscular Hemoglobin Concent 31.5 L Red Cell Distribution Width 13.3 Platelet Count 344 Mean Platelet Volume 9.4 Immature Granulocytes % 0.500 H Neutrophils % 58.7 Lymphocytes % 27.5 Monocytes % 8.7 Eosinophils % 4.1 Basophils % 0.5 Nucleated Red Blood Cells % 0.0 Immature Granulocytes # 0.050 H Neutrophils # 6.5 Lymphocytes # 3.0 H Monocytes # 1.0 H Eosinophils # 0.5 Basophils # 0.1 Nucleated Red Blood Cells # 0.0 Prothrombin Time 12.4 Prothrombin Time Ratio 1.0 INR International Normalized Ratio 0.91 Activated Partial Thromboplast Time 31.7 Sodium Level 147 H Potassium Level 3.6 Chloride Level 111 H Carbon Dioxide Level 25 Anion Gap 11 Blood Urea Nitrogen 18 Creatinine 0.61 Est Glomerular Filtrat Rate mL/min > 60 Glucose Level 88 Lactic Acid Level 1.7 1.4 Calcium Level 9.4 Total Bilirubin 0.3 Direct Bilirubin 0.00 Indirect Bilirubin 0.3 Aspartate Amino Transf (AST/SGOT) 19 Alanine Aminotransferase (ALT/SGPT) 19 Alkaline Phosphatase 105 Troponin I < 0.012 Total Protein 8.1 Albumin 4.3 Globulin 3.80 H Albumin/Globulin Ratio 1.13 Exam/Review of Systems Exam Vitals Vital Signs Date Temp Pulse Resp B/P (MAP) Pulse Ox O2 O2 Flow FiO2 Time Delivery Rate 08/07/18 98.1 64 16 135/79 98 Room Air 07:25 (97) Intake and Output 08/06/18 08/06/18 08/07/18 1515:00 23:00 07:00 IntakeIntake Total 450 ml OutputOutput Total 200 ml BalanceBalance 250 ml Results Results 24hrs Laboratory Tests Test 08/06/18 19:27 08/06/18 21:58 White Blood Count 11.0 #H Red Blood Count 5.43 Hemoglobin 15.1 Hematocrit 47.9 Mean Corpuscular Volume 88.2 Mean Corpuscular Hemoglobin 27.8 L Mean Corpuscular Hemoglobin Concent 31.5 L Red Cell Distribution Width 13.3 Platelet Count 344 Mean Platelet Volume 9.4 Immature Granulocytes % 0.500 H Neutrophils % 58.7 Lymphocytes % 27.5 Monocytes % 8.7 Eosinophils % 4.1 Basophils % 0.5 Nucleated Red Blood Cells % 0.0 Immature Granulocytes # 0.050 H Neutrophils # 6.5 Lymphocytes # 3.0 H Monocytes # 1.0 H Eosinophils # 0.5 Basophils # 0.1 Nucleated Red Blood Cells # 0.0 Prothrombin Time 12.4 Prothrombin Time Ratio 1.0 INR International Normalized Ratio 0.91 Activated Partial Thromboplast Time 31.7 Sodium Level 147 H Potassium Level 3.6 Chloride Level 111 H Carbon Dioxide Level 25 Anion Gap 11 Blood Urea Nitrogen 18 Creatinine 0.61 Est Glomerular Filtrat Rate mL/min > 60 Glucose Level 88 Lactic Acid Level 1.7 1.4 Calcium Level 9.4 Total Bilirubin 0.3 Direct Bilirubin 0.00 Indirect Bilirubin 0.3 Aspartate Amino Transf (AST/SGOT) 19 Alanine Aminotransferase (ALT/SGPT) 19 Alkaline Phosphatase 105 Troponin I < 0.012 Total Protein 8.1 Albumin 4.3 Globulin 3.80 H Albumin/Globulin Ratio 1.13 Medications Medication Current Medications IV Flush (NS 3 ml) 3 ml PER PROTOCOL IV ; Start 08/06/18 at 19:00 Ondansetron HCl (Zofran Inj) 4 mg Q6H PRN IV NAUSEA/VOMITING; Start 08/06/18 at 19:00 Acetaminophen (Tylenol Tab) 650 mg Q6H PRN PO .PAIN 1-3 OR TEMP; Start 08/06/18 at 19:00 Oxycodone/ Acetaminophen (Percocet (5/ 325)) 1 tab Q6H PRN PO .PAINS 4-6 Last administered on 08/07/18at 00:02; Admin Dose 1 TAB; Start 08/06/18 at 19:00 Morphine Sulfate (morphine) 4 mg Q4H PRN IV .PAIN 7-10 Last administered on 08/07/18at 10:35; Admin Dose 4 MG; Start 08/07/18 at 03:00 Phenol (Cepastat Lozenge) 1 lozenge Q1H PRN MT sore throat; Start 08/06/18 at 23:30 Miscellaneous Information (Pending [facility] Order For Wound Care) This patient lorenzana... PRN PRN XX WOUND CARE; Start 08/07/18 at 06:00 Vancomycin HCl (Vanco Iv Per Pharmacy) VANCOMYCIN PER PHARMACY PER PROTOCOL XX ; Start 08/07/18 at 07:00 Vancomycin HCl 2 gm/Sodium Chloride 500 ml @ 125 mls/hr ONCE IVPB Last administered on 08/07/18at 10:34; Admin Dose 125 MLS/HR; Start 08/07/18 at 09:00; Stop 08/07/18 at 14:00 Vancomycin HCl 1.75 gm/Sodium Chloride 500 ml @ 125 mls/hr Q12H IVPB ; Start 08/07/18 at 21:00 Miscellaneous Information (*Rx Drug Level Order Reminder*) VANCO TR LEVEL PRIOR... 0800 ONCE XX ; Start 08/08/18 at 08:00; Stop 08/08/18 at 08:01 CHRIS TOPETE MD August 07, 2018 12:21
--- NOTE | 2018-08-07 12:32 | CONS ---
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 Patient also complained of pain to the hip and upper thigh site and images were ordered. Recommend an orthopedic c onsult for further evaluation. Patient in the past had vascular examination with PT artery stenosis recommend a vascular evaluation. Initiate wound VAC therapy. Continue with IV abx. Offload heels with pillows. Consultation Date/Type/Reason Admit Date/Time August 06, 2018 at 18:58 Date/Time of Note DATE: 08/07/18 TIME: 12:30 Hx of Present Illness 28 y/o M patient with chronic right ankle ulceration, osteomyelitis, spina bifida, paraplegia, presents to the floor with right ankle ulceration. Patient has been following regularly in the wound care clinic and there is concern for worsening infection. Patient also has expressed new findings of pain to the upper thigh/hip area of the right lower extremity. Patient denies f/c/n/v no chest pain or shortness of breath. 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 Home Meds Discontinued Scripts Clindamycin Hcl* (Clindamycin Hcl*) 150 Mg Capsule, 150 MG PO QID for 10 Days, CAP Prov:SAVAGE MARVIN MD 07/17/18 Medications Current Medications IV Flush (NS 3 ml) 3 ml PER PROTOCOL IV ; Start 08/06/18 at 19:00 Ondansetron HCl (Zofran Inj) 4 mg Q6H PRN IV NAUSEA/VOMITING; Start 08/06/18 at 19:00 Acetaminophen (Tylenol Tab) 650 mg Q6H PRN PO .PAIN 1-3 OR TEMP; Start 08/06/18 at 19:00 Morphine Sulfate (morphine) 4 mg Q4H PRN IV .PAIN 7-10 Last administered on 08/07/18at 10:35; Admin Dose 4 MG; Start 08/07/18 at 03:00 Phenol (Cepastat Lozenge) 1 lozenge Q1H PRN MT sore throat; Start 08/06/18 at 23:30 Miscellaneous Information (Pending [facility] Order For Wound Care) This patient lorenzana... PRN PRN XX WOUND CARE; Start 08/07/18 at 06:00 Vancomycin HCl (Vanco Iv Per Pharmacy) VANCOMYCIN PER PHARMACY PER PROTOCOL XX ; Start 08/07/18 at 07:00 Vancomycin HCl 2 gm/Sodium Chloride 500 ml @ 125 mls/hr ONCE IVPB Last administered on 08/07/18at 10:34; Admin Dose 125 MLS/HR; Start 08/07/18 at 09:00; Stop 08/07/18 at 14:00 Vancomycin HCl 1.75 gm/Sodium Chloride 500 ml @ 125 mls/hr Q12H IVPB ; Start 08/07/18 at 21:00 Miscellaneous Information (*Rx Drug Level Order Reminder*) VANCO TR LEVEL PRIOR... 0800 ONCE XX ; Start 08/08/18 at 08:00; Stop 08/08/18 at 08:01 Oxycodone/ Acetaminophen (Endocet ()) 1 tab Q4H PRN PO MODERATE PAIN LE COOKIE 4-6; Start 08/07/18 at 12:30; Status UNV Enoxaparin Sodium (Lovenox) 40 mg DAILY SC ; Start 08/08/18 at 09:00; Status UNV Lactobacillus Acidophilus/ Rhamnosus (Culturelle) 1 cap BID PO ; Start 08/07/18 at 21:00; Status UNV Allergies: Coded Allergies: latex (Unverified Allergy, Intermediate, RASH, 08/06/18) ketorolac (Unverified Allergy, Mild, RASH, 08/06/18) papaya (Unverified Allergy, Mild, 08/06/18) piperacillin (Unverified Allergy, Mild, 08/06/18) tazobactam (Unverified Allergy, Mild, 08/06/18) ibuprofen (Unverified Allergy, Unknown, LIP SWELLING, STATED THROAT IS CLOSING, 08/06/18) Past Surgical History wound debridements and bone resection. Social History Alcohol Use: other Smoking Status: Current every day smoker Drug Use: other Exam/Review of Systems Exam Vitals Vital Signs Date Temp Pulse Resp B/P (MAP) Pulse Ox O2 O2 Flow FiO2 Time Delivery Rate 08/07/18 98.1 64 16 135/79 98 Room Air 07:25 (97) Intake and Output 508/06/18 08/07/18 1515:00 23:00 07:00 IntakeIntake Total 450 ml OutputOutput Total 200 ml BalanceBalance 250 ml Exam DP/PT pulses palpable Absent protective sensations Absent muscle strength to the lower extremity Mild pain on palpation to the right ankle ulceration site Right medial ankle ulceration 3 x 2 x 1.0cm which probes to bone, fibrogranular wound bed. No proximal streaking no active purulent drainage no foul odor. Results Result Diagram: 08/06/18192608/06/181926 Results 24hrs Laboratory Tests Test 08/06/18 19:27 08/06/18 21:58 White Blood Count 11.0 #H Red Blood Count 5.43 Hemoglobin 15.1 Hematocrit 47.9 Mean Corpuscular Volume 88.2 Mean Corpuscular Hemoglobin 27.8 L Mean Corpuscular Hemoglobin Concent 31.5 L Red Cell Distribution Width 13.3 Platelet Count 344 Mean Platelet Volume 9.4 Immature Granulocytes % 0.500 H Neutrophils % 58.7 Lymphocytes % 27.5 Monocytes % 8.7 Eosinophils % 4.1 Basophils % 0.5 Nucleated Red Blood Cells % 0.0 Immature Granulocytes # 0.050 H Neutrophils # 6.5 Lymphocytes # 3.0 H Monocytes # 1.0 H Eosinophils # 0.5 Basophils # 0.1 Nucleated Red Blood Cells # 0.0 Prothrombin Time 12.4 Prothrombin Time Ratio 1.0 INR International Normalized Ratio 0.91 Activated Partial Thromboplast Time 31.7 Sodium Level 147 H Potassium Level 3.6 Chloride Level 111 H Carbon Dioxide Level 25 Anion Gap 11 Blood Urea Nitrogen 18 Creatinine 0.61 Est Glomerular Filtrat Rate mL/min > 60 Glucose Level 88 Lactic Acid Level 1.7 1.4 Calcium Level 9.4 Total Bilirubin 0.3 Direct Bilirubin 0.00 Indirect Bilirubin 0.3 Aspartate Amino Transf (AST/SGOT) 19 Alanine Aminotransferase (ALT/SGPT) 19 Alkaline Phosphatase 105 Troponin I < 0.012 Total Protein 8.1 Albumin 4.3 Globulin 3.80 H Albumin/Globulin Ratio 1.13 Medications Medication Current Medications IV Flush (NS 3 ml) 3 ml PER PROTOCOL IV ; Start 08/06/18 at 19:00 Ondansetron HCl (Zofran Inj) 4 mg Q6H PRN IV NAUSEA/VOMITING; Start 08/06/18 at 19:00 Acetaminophen (Tylenol Tab) 650 mg Q6H PRN PO .PAIN 1-3 OR TEMP; Start 08/06/18 at 19:00 Morphine Sulfate (morphine) 4 mg Q4H PRN IV .PAIN 7-10 Last administered on 08/07/18at 10:35; Admin Dose 4 MG; Start 08/07/18 at 03:00 Phenol (Cepastat Lozenge) 1 lozenge Q1H PRN MT sore throat; Start 08/06/18 at 23:30 Miscellaneous Information (Pending [facility] Order For Wound Care) This patient lorenzana... PRN PRN XX WOUND CARE; Start 08/07/18 at 06:00 Vancomycin HCl (Vanco Iv Per Pharmacy) VANCOMYCIN PER PHARMACY PER PROTOCOL XX ; Start 08/07/18 at 07:00 Vancomycin HCl 2 gm/Sodium Chloride 500 ml @ 125 mls/hr ONCE IVPB Last administered on 08/07/18at 10:34; Admin Dose 125 MLS/HR; Start 08/07/18 at 09:00; Stop 08/07/18 at 14:00 Vancomycin HCl 1.75 gm/Sodium Chloride 500 ml @ 125 mls/hr Q12H IVPB ; Start 08/07/18 at 21:00 Miscellaneous Information (*Rx Drug Level Order Reminder*) VANCO TR LEVEL PRIOR... 0800 ONCE XX ; Start 08/08/18 at 08:00; Stop 08/08/18 at 08:01 Oxycodone/ Acetaminophen (Endocet (10/ 325)) 1 tab Q4H PRN PO MODERATE PAIN LEVEL 4-6; Start 08/07/18 at 12:30; Status UNV Enoxaparin Sodium (Lovenox) 40 mg DAILY SC ; Start 08/08/18 at 09:00; Status UNV Lactobacillus Acidophilus/ Rhamnosus (Culturelle) 1 cap BID PO ; Start 08/07/18 at 21:00; Status UNV LUCINA RINALDI DPCourtney August 07, 2018 12:32
[2018-08-07] MEDS ORDERED: morphine 4 MG/ML VIAL IV STA (13:09)
[2018-08-07 14:40] VITALS: BP 135/75; PULSE 69; RESP 16
[2018-08-07] MEDS: OXYCODONE/ACETAMINOPHEN (10/325) TAB PO PRN ×3 (15:25→23:51)
[2018-08-07 20:00] VITALS: BP 110/53; PULSE 76; RESP 18
[2018-08-07] MEDS: LACTOBACILLUS RHAMNOSUS CAP PO SCH (21:17)
[2018-08-07] MEDS: VANCOMYCIN HCL 1.75 GM in SOD CHLORIDE 0.9% 500 ML IVPB SCH (21:17)
[2018-08-08 02:00] VITALS: BP 104/51; PULSE 70; RESP 19
[2018-08-08 07:30] VITALS: BP 144/88; PULSE 72; RESP 18
[2018-08-08] MEDS: morphine 2 MG INJ IV PRN (08:05)
[2018-08-08] MEDS: ENOXAPARIN 40 MG/0.4 ML SYG SC SCH (08:45)
[2018-08-08] MEDS: LACTOBACILLUS RHAMNOSUS CAP PO SCH ×2 (08:45→21:00)
[2018-08-08] MEDS: OXYCODONE/ACETAMINOPHEN (10/325) TAB PO PRN ×3 (08:45→22:55)
[2018-08-08] MEDS: VANCOMYCIN HCL 1.75 GM in SOD CHLORIDE 0.9% 500 ML IVPB SCH ×2 (10:25→21:00)
[2018-08-08] MEDS: morphine 4 MG/ML VIAL IM PRN ×3 (13:00→20:59)
--- NOTE | 2018-08-08 13:24 | PN ---
Date/Time of Note Date/Time of Note DATE: 08/08/18 TIME: 13:19 Assessment/Plan VTE Prophylaxis Risk score (from Ns)>0 risk: 6 SCD applied (from Ns): No SCD contraindicated: low risk/ambulating Pharmacological prophylaxis: LMWH Lines/Catheters IV [facility] (from [facility]): Saline Lock Assessment/Plan Hospital Course A/P 1. Subacute rt Ulcer; possible imaging/debridement soon. sp MRI; no iv access. Low periop risk. no chest pain/ dyspnea, may proceed forward to debridement from medical management. 2. Sacral decubitus history. Continue offload, although patient is not adherent to medical management 3. Spina bifida 4. Ftt; 5. Chr Rt ankle OM, sp vanco/ Linezolid/ debridement. Now sp Vac. 6. Nonadherence 7. Abn LFTs asymptomatic, likely due to hepatic steatosis, stable observe 8. 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 H/o Port Infection; however, may need a new port. risk noted, but no other options. will consult Vascular. 11. Scrotal Stage III Ulcer; cont wound care 12. Chr Pelvic deformity; denies any recent injury. Will consult ortho S: 08/07 Events noted no fever diarrhea 08/08 'pain' although no distress. no iv access; previously, unable to place ij due to blockage. consider new port; r/b discussed w Kunal. O: Vss PE no pallor Regular Clear Bs+ nt nd; overweight; no RRG Rt ankle mild tender but possibly chr. Vac in place Result Diagram: 08/07/18 1722 08/07/18 1722 Results 24hrs Laboratory Tests Test 08/07/18 17:22 White Blood Count 5.0 # Red Blood Count 4.73 Hemoglobin 13.3 L Hematocrit 40.9 L Mean Corpuscular Volume 86.5 Mean Corpuscular Hemoglobin 28.1 L Mean Corpuscular Hemoglobin Concent 32.5 Red Cell Distribution Width 13.1 Platelet Count 249 # Mean Platelet Volume 9.3 Immature Granulocytes % 0.400 Neutrophils % 69.7 Lymphocytes % 15.1 Monocytes % 9.8 Eosinophils % 4.8 Basophils % 0.2 Nucleated Red Blood Cells % 0.0 Immature Granulocytes # 0.020 Neutrophils # 3.5 Lymphocytes # 0.8 Monocytes # 0.5 Eosinophils # 0.2 Basophils # 0.0 Nucleated Red Blood Cells # 0.0 Erythrocyte Sedimentation Rate 23 H Sodium Level 138 Potassium Level 4.0 Chloride Level 103 Carbon Dioxide Level 28 Anion Gap 7 Blood Urea Nitrogen 14 Creatinine 0.51 L Est Glomerular Filtrat Rate mL/min > 60 Glucose Level 104 Hemoglobin A1c 5.3 Lactic Acid Level 1.2 Calcium Level 8.5 Magnesium Level 1.4 L Total Bilirubin 0.9 Direct Bilirubin 0.00 Indirect Bilirubin 0.9 Aspartate Amino Transf (AST/SGOT) 693 #H Alanine Aminotransferase (ALT/SGPT) 741 H Alkaline Phosphatase 209 #H C-Reactive Protein 2.8 H Total Protein 7.1 # Albumin 3.5 Globulin 3.60 H Albumin/Globulin Ratio 0.97 Triglycerides Level 196 H Cholesterol Level 165 LDL Cholesterol, Calculated 93 HDL Cholesterol 33 Cholesterol/HDL Ratio 5.0 Procalcitonin 0.20 H Thyroid Stimulating Hormone (TSH) 0.472 Exam/Review of Systems Exam Vitals Vital Signs Date Temp Pulse Resp B/P (MAP) Pulse Ox O2 O2 Flow FiO2 Time Delivery Rate 08/08/18 98.3 72 18 144/88 96 Room Air 07:30 (106) Intake and Output 08/07/18 08/07/18 08/08/18 1515:00 23:00 07:00 IntakeIntake Total 1200 ml 400 ml 1080 ml BalanceBalance 1200 ml 400 ml 1080 ml Results Results 24hrs Laboratory Tests Test 08/07/18 17:22 White Blood Count 5.0 # Red Blood Count 4.73 Hemoglobin 13.3 L Hematocrit 40.9 L Mean Corpuscular Volume 86.5 Mean Corpuscular Hemoglobin 28.1 L Mean Corpuscular Hemoglobin Concent 32.5 Red Cell Distribution Width 13.1 Platelet Count 249 # Mean Platelet Volume 9.3 Immature Granulocytes % 0.400 Neutrophils % 69.7 Lymphocytes % 15.1 Monocytes % 9.8 Eosinophils % 4.8 Basophils % 0.2 Nucleated Red Blood Cells % 0.0 Immature Granulocytes # 0.020 Neutrophils # 3.5 Lymphocytes # 0.8 Monocytes # 0.5 Eosinophils # 0.2 Basophils # 0.0 Nucleated Red Blood Cells # 0.0 Erythrocyte Sedimentation Rate 23 H Sodium Level 138 Potassium Level 4.0 Chloride Level 103 Carbon Dioxide Level 28 Anion Gap 7 Blood Urea Nitrogen 14 Creatinine 0.51 L Est Glomerular Filtrat Rate mL/min > 60 Glucose Level 104 Hemoglobin A1c 5.3 Lactic Acid Level 1.2 Calcium Level 8.5 Magnesium Level 1.4 L Total Bilirubin 0.9 Direct Bilirubin 0.00 Indirect Bilirubin 0.9 Aspartate Amino Transf (AST/SGOT) 693 #H Alanine Aminotransferase (ALT/SGPT) 741 H Alkaline Phosphatase 209 #H C-Reactive Protein 2.8 H Total Protein 7.1 # Albumin 3.5 Globulin 3.60 H Albumin/Globulin Ratio 0.97 Triglycerides Level 196 H Cholesterol Level 165 LDL Cholesterol, Calculated 93 HDL Cholesterol 33 Cholesterol/HDL Ratio 5.0 Procalcitonin 0.20 H Thyroid Stimulating Hormone (TSH) 0.472 Medications Medication Current Medications IV Flush (NS 3 ml) 3 ml PER PROTOCOL IV ; Start 08/06/18 at 19:00 Ondansetron HCl (Zofran Inj) 4 mg Q6H PRN IV NAUSEA/VOMITING; Start 08/06/18 at 19:00 Acetaminophen (Tylenol Tab) 650 mg Q6H PRN PO .PAIN 1-3 OR TEMP; Start 08/06/18 at 19:00 Phenol (Cepastat Lozenge) 1 lozenge Q1H PRN MT sore throat; Start 08/06/18 at 23:30 Miscellaneous Information (Pending [facility] Order For Wound Care) This patient lorenzana... PRN PRN XX WOUND CARE; Start 08/07/18 at 06:00 Vancomycin HCl (Vanco Iv Per Pharmacy) VANCOMYCIN PER PHARMACY PER PROTOCOL XX ; Start 08/07/18 at 07:00 Vancomycin HCl 1.75 gm/Sodium Chloride 500 ml @ 125 mls/hr Q12H IVPB Last administered on 08/08/18at 10:25; Admin Dose 125 MLS/HR; Start 08/07/18 at 21:00 Oxycodone/ Acetaminophen (Endocet ( 325)) 1 tab Q4H PRN PO MODERATE PAIN LEVEL 4-6 Last administered on 08/08/18at 08:45; Admin Dose 1 TAB; Start 08/07/18 at 12:30 Enoxaparin Sodium (Lovenox) 40 mg DAILY SC ; Start 08/08/18 at 09:00 Lactobacillus Acidophilus/ Rhamnosus (Culturelle) 1 cap BID PO Last administered on 08/08/18at 08:45; Admin Dose 1 CAP; Start 08/07/18 at 21:00 Miscellaneous Information (*Rx Drug Level Order Reminder*) 1999 ONCE XX ; Start 08/08/18 at 20:00; Stop 08/08/18 at 20:01 Morphine Sulfate (morphine) 4 mg Q4H PRN IM .PAIN 7-10 Last administered on 08/08/18at 13:00; Admin Dose 4 MG; Start 08/08/18 at 13:00 CHRIS TOPETE MD August 08, 2018 13:24
[2018-08-08] MEDS ORDERED: ONDANSETRON 4 MG INJ IV PRN (13:30)
[2018-08-08] MEDS ORDERED: BARIUM SULF 2% 450 ML BTL (BERRY SMOOTHIE) PO ONE (14:00)
[2018-08-08 15:30] VITALS: BP 176/80; PULSE 80; RESP 16
[2018-08-08 17:09] VITALS: BP 144/88; PULSE 88
[2018-08-08 20:00] VITALS: BP_SYST 111; BP_SYST 197; BP_DIAS 57; BP_DIAS 88; PULSE 65; RESP 18
[2018-08-08 22:59] VITALS: BP 151/88; PULSE 61
[2018-08-09] MEDS: morphine 4 MG/ML VIAL IM PRN ×4 (01:15→18:24)
[2018-08-09 02:00] VITALS: BP 136/64; PULSE 55; RESP 18
[2018-08-09 07:52] VITALS: BP 140/86; PULSE 70; RESP 18
[2018-08-09] MEDS: ENOXAPARIN 40 MG/0.4 ML SYG SC SCH (09:00)
[2018-08-09] MEDS: LACTOBACILLUS RHAMNOSUS CAP PO SCH ×2 (09:22→21:16)
[2018-08-09] MEDS: OXYCODONE/ACETAMINOPHEN (10/325) TAB PO PRN (11:18)
[2018-08-09] MEDS: CEPASTAT LOZENGE MT PRN ×2 (11:21→14:43)
[2018-08-09] MEDS ORDERED: OXYCODONE/ACETAMINOPHEN (10/325) TAB PO PRN (14:30)
--- NOTE | 2018-08-09 14:30 | PN ---
Date/Time of Note Date/Time of Note DATE: 08/09/18 TIME: 14:24 Assessment/Plan VTE Prophylaxis Risk score (from Ns)>0 risk: 4 SCD applied (from Ns): No SCD contraindicated: low risk/ambulating Pharmacological prophylaxis: LMWH Lines/Catheters IV Catheter Type (from Nrs): Saline Lock Assessment/Plan Hospital Course A/P 1. Subacute rle ulcer; possible debridement soon. sp MRI; no iv access. Low periop risk. no chest pain/ dyspnea, may proceed forward to debridement from medical management. 2. Sacral decubitus history. Continue offload, although patient is not adherent to medical management 3. Spina bifida 4. Ftt; 5. Chr Rt ankle OM, sp vanco/ Linezolid/ debridement. Now sp Vac. 6. Nonadherence 7. Abn LFTs asymptomatic, likely due to hepatic steatosis, stable observe 8. Tobacco abuse/marijuana abuse 9. Left [employer] shunt status 10. H/o Port Infection; however, may need a new port. risk noted, but no other options. consulted Vascular. 11. Scrotal Stage III Ulcer; cont wound care; +/- urology assistance 12. Chr Pelvic deformity; denies any recent injury. consulted ortho 13. Chr pain? 14. Pain seeking behavior S: 08/07 Events noted no fever diarrhea 08/08 'pain' although no distress. no iv access; previously, unable to place ij due to blockage. consider new port; r/b discussed w Kunal. 08/09: no iv access. no fever, dyspnea. denies any h/o pelvic injury. wants dilaudid, states he has a tylenol allergy O: Vss PE no pallor Reg no mrg Clear Bs+ nt nd; overweight; no RRG Rt ankle mild tender but possibly chr. Vac in place Result Diagram: 08/08/18222508/08/182225 Results 24hrs Laboratory Tests Test 08/08/18 22:26 White Blood Count 5.9 Red Blood Count 5.06 Hemoglobin 14.1 Hematocrit 43.2 Mean Corpuscular Volume 85.4 Mean Corpuscular Hemoglobin 27.9 L Mean Corpuscular Hemoglobin Concent 32.6 Red Cell Distribution Width 13.0 Platelet Count 209 Mean Platelet Volume 9.7 Immature Granulocytes % 0.900 H Neutrophils % 50.7 Lymphocytes % 28.1 Monocytes % 12.8 H Eosinophils % 7.2 H Basophils % 0.3 Nucleated Red Blood Cells % 0.0 Immature Granulocytes # 0.050 H Neutrophils # 3.0 Lymphocytes # 1.7 Monocytes # 0.8 Eosinophils # 0.4 Basophils # 0.0 Nucleated Red Blood Cells # 0.0 Prothrombin Time 12.0 Prothrombin Time Ratio 0.9 INR International Normalized Ratio 0.88 Sodium Level 138 Potassium Level 3.8 Chloride Level 103 Carbon Dioxide Level 26 Anion Gap 9 Blood Urea Nitrogen 17 Creatinine 0.46 L Est Glomerular Filtrat Rate mL/min > 60 Glucose Level 98 Calcium Level 8.9 Magnesium Level 1.4 L Total Bilirubin 0.3 Direct Bilirubin 0.00 Indirect Bilirubin 0.3 Aspartate Amino Transf (AST/SGOT) 281 #H Alanine Aminotransferase (ALT/SGPT) 529 H Alkaline Phosphatase 308 H Total Protein 7.6 Albumin 3.7 Globulin 3.90 H Albumin/Globulin Ratio 0.94 Vancomycin Level Trough 5.1 L Exam/Review of Systems Exam Vitals Vital Signs Date Temp Pulse Resp B/P (MAP) Pulse Ox O2 O2 Flow FiO2 Time Delivery Rate 08/09/18 97.5 70 18 140/86 96 Room Air 07:52 (104) Intake and Output 08/08/18 08/08/18 08/09/18 1515:00 23:00 07:00 IntakeIntake Total 440 ml 360 ml 400 ml OutputOutput Total 300 ml BalanceBalance 440 ml 360 ml 100 ml Results Results 24hrs Laboratory Tests Test 08/08/18 22:26 White Blood Count 5.9 Red Blood Count 5.06 Hemoglobin 14.1 Hematocrit 43.2 Mean Corpuscular Volume 85.4 Mean Corpuscular Hemoglobin 27.9 L Mean Corpuscular Hemoglobin Concent 32.6 Red Cell Distribution Width 13.0 Platelet Count 209 Mean Platelet Volume 9.7 Immature Granulocytes % 0.900 H Neutrophils % 50.7 Lymphocytes % 28.1 Monocytes % 12.8 H Eosinophils % 7.2 H Basophils % 0.3 Nucleated Red Blood Cells % 0.0 Immature Granulocytes # 0.050 H Neutrophils # 3.0 Lymphocytes # 1.7 Monocytes # 0.8 Eosinophils # 0.4 Basophils # 0.0 Nucleated Red Blood Cells # 0.0 Prothrombin Time 12.0 Prothrombin Time Ratio 0.9 INR International Normalized Ratio 0.88 Sodium Level 138 Potassium Level 3.8 Chloride Level 103 Carbon Dioxide Level 26 Anion Gap 9 Blood Urea Nitrogen 17 Creatinine 0.46 L Est Glomerular Filtrat Rate mL/min > 60 Glucose Level 98 Calcium Level 8.9 Magnesium Level 1.4 L Total Bilirubin 0.3 Direct Bilirubin 0.00 Indirect Bilirubin 0.3 Aspartate Amino Transf (AST/SGOT) 281 #H Alanine Aminotransferase (ALT/SGPT) 529 H Alkaline Phosphatase 308 H Total Protein 7.6 Albumin 3.7 Globulin 3.90 H Albumin/Globulin Ratio 0.94 Vancomycin Level Trough 5.1 L Medications Medication Current Medications IV Flush (NS 3 ml) 3 ml PER PROTOCOL IV ; Start 08/06/18 at 19:00 Acetaminophen (Tylenol Tab) 650 mg Q6H PRN PO .PAIN 1-3 OR TEMP; Start 08/06/18 at 19:00; Status Hold Phenol (Cepastat Lozenge) 1 lozenge Q1H PRN MT sore throat Last administered on 08/09/18at 11:21; Admin Dose 1 LOZENGE; Start 08/06/18 at 23:30 Miscellaneous [facility] This patient lorenzana... PRN PRN XX WOUND CARE; Start 08/07/18 at 06:00 Vancomycin HCl (Vanco Iv Per Pharmacy) VANCOMYCIN PER PHARMACY PER PROTOCOL XX ; Start 08/07/18 at 07:00 Vancomycin HCl 1.75 gm/Sodium Chloride 500 ml @ 125 mls/hr Q12H IVPB Last administered on 08/08/18at 10:25; Admin Dose 125 MLS/HR; Start 08/07/18 at 21:00; Status Hold Oxycodone/ Acetaminophen (Endocet (10/ 325)) 1 tab Q4H PRN PO MODERATE PAIN LEVEL 4-6 Last administered on 08/09/18at 11:18; Admin Dose 1 TAB; Start 08/07/18 at 12:30; Status Hold Enoxaparin Sodium (Lovenox) 40 mg DAILY SC ; Start 08/08/18 at 09:00 Lactobacillus Acidophilus/ Rhamnosus (Culturelle) 1 cap BID PO Last administered on 08/09/18at 09:22; Admin Dose 1 CAP; Start 08/07/18 at 21:00 Morphine Sulfate (morphine) 4 mg Q4H PRN IM .PAIN 7-10 Last administered on 08/09/18at 10:20; Admin Dose 4 MG; Start 08/08/18 at 13:00 Ondansetron HCl (Zofran Inj) 4 mg Q4H PRN IV NAUSEA/VOMITING; Start 08/08/18 at 13:30 CHRIS TOPETE MD August 09, 2018 14:30
[2018-08-09] MEDS: TRIMETHOPRIM/SULFAMETHOX (DS) TAB PO SCH ×2 (14:39→21:16)
[2018-08-09] MEDS: GUAIFENESIN/DM 5ML CUP PO PRN (14:46)
[2018-08-09 20:00] VITALS: BP 141/83; PULSE 75; RESP 18
[2018-08-09] MEDS: MAGNESIUM OXIDE 400 MG TAB PO SCH (21:16)
[2018-08-10 02:00] VITALS: BP 144/64; PULSE 66; RESP 18
--- NOTE | 2018-08-10 07:35 | CONS ---
Assessment/Plan Assessment/Plan Assessment/Plan (Daily) Drug-seeking behavior noncompliance with medical therapy seeking opioids for pain control Infected by poor extremity wound morbid obesity currently receiving counseling I've tried to negotiate with him in the path this time will do so once again to control his pain mostly from an ethical standpoint.Patient is tolerant to low doses of opioids, secondary obesity and prior opioid usage. Agree with high doses of IV morphine for short period of time and long-acting OxyContin. Will follow. Consultation Date/Type/Reason Admit Date/Time August 06, 2018 at 18:58 Date/Time of Note DATE: 08/10/18 TIME: 07:30 Hx of Present Illness This is a 28-year-old male with a history of spina bifida, left sided [employer] shunt, recurrent UTI, sacral decubitus ulcer, right lower extremity/ankle ulcer. 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 Singletary for acute on chronic right ankle infected ulcer. X-ray shows the following. 1. Exuberant callus formation of the proximal fibula, may reflect the sequela of prior infection or trauma. No significant interval change. 2. Widening of the distal tibial metaphysis with cortical irregularity and increased lucency of the medullary space. Findings may reflect the sequela of prior infection or trauma. In the setting of suspected acute infection, MRI is recommended for further evaluation. 3. Widening of the medial ankle mortise. 4. Diffuse soft tissue edema. All information is taken from patient's medical records he is less than enthusiastic about speaking to me today. This is a postdated note for patient on 08/08 at that time he was half-asleep and refused to answer my questions. I've known him from prior admissions he is been noncompliant with therapy and has had multiple follow-ups in admissions and password worsening of his right lower extremity wound. Patient has had a past medical history of drug seeking behavior and refuses a change his pain control medications at times. More than a second ocular history of present illness from him as he refuses. Past Medical History Home Meds Discontinued Scripts Clindamycin Hcl* (Clindamycin Hcl*) 150 Mg Capsule, 150 MG PO QID for 10 Days, CAP Prov:SAVAGE MARVIN MD 07/17/18 Medications Current Medications IV Flush (NS 3 ml) 3 ml PER PROTOCOL IV ; Start 08/06/18 at 19:00 Acetaminophen (Tylenol Tab) 650 mg Q6H PRN PO .PAIN 1-3 OR TEMP; Start 08/06/18 at 19:00; Status Hold Phenol (Cepastat Lozenge) 1 lozenge Q1H PRN MT sore throat Last administered on 08/09/18at 14:43; Admin Dose 1 LOZENGE; Start 08/06/18 at 23:30 Miscellaneous Information [facility] This patient lorenzana... PRN PRN XX WOUND CARE; Start 08/07/18 at 06:00 Vancomycin HCl (Vanco Iv Per Pharmacy) VANCOMYCIN PER PHARMACY PER PROTOCOL XX ; Start 08/07/18 at 07:00 Vancomycin HCl 1.75 gm/Sodium Chloride 500 ml @ 125 mls/hr Q12H IVPB Last ad ministered on 08/08/18at 10:25; Admin Dose 125 MLS/HR; Start 08/07/18 at 21:00; Status Hold Enoxaparin Sodium (Lovenox) 40 mg DAILY SC ; Start 08/08/18 at 09:00 Lactobacillus Acidophilus/ Rhamnosus (Culturelle) 1 cap BID PO Last administered on 08/09/18at 21:16; Admin Dose 1 CAP; Start 08/07/18 at 21:00 Morphine Sulfate (morphine) 4 mg Q4H PRN IM .PAIN 7-10 Last administered on 08/09/18at 18:24; Admin Dose 4 MG; Start 08/08/18 at 13:00 Ondansetron HCl (Zofran Inj) 4 mg Q4H PRN IV NAUSEA/VOMITING; Start 08/08/18 at 13:30 Oxycodone/ Acetaminophen (Endocet (10/ 325)) 1 tab Q3 PRN PO MODERATE PAIN LEVEL 4-6; Start 08/09/18 at 14:30 Magnesium Oxide (Mag-Ox 400) 400 mg BID PO Last administered on 08/09/18at 21:16; Admin Dose 400 MG; Start 08/09/18 at 21:00 Trimethoprim/ Sulfamethoxazole (Bactrim (Ds)) 1 tab BID PO Last administered on 08/09/18at 21:16; Admin Dose 1 TAB; Start 08/09/18 at 14:30 Guaifenesin/ Dextromethorphan (Robitussin Dm Liquid Cup) 10 ml Q4H PRN PO COUGH Last administered on 08/09/18at 14:46; Admin Dose 10 ML; Start 08/09/18 at 15:00 Allergies: Coded Allergies: latex (Unverified Allergy, Intermediate, RASH, 08/06/18) ketorolac (Unverified Allergy, Mild, RASH, 08/06/18) papaya (Unverified Allergy, Mild, 08/06/18) piperacillin (Unverified Allergy, Mild, 08/06/18) tazobactam (Unverified Allergy, Mild, 08/06/18) acetaminophen (Verified Allergy, Unknown, FACE SWELLS ?QUESTIONABLE ALLERGY, 08/09/18) PER RN, FORREST, MR REDD TOLD HER THAT HE IS ALLERGIC TO TYLENOL. HE HAS RECEIVED 7 ENDOCET TABS SO FAR, NO FACE SWELLING. ibuprofen (Unverified Allergy, Unknown, LIP SWELLING, STATED THROAT IS CLOSING, 08/06/18) Social History Alcohol Use: other Smoking Status: Current every day smoker Drug Use: other Exam/Review of Systems Exam Vitals Vital Signs Date Temp Pulse Resp B/P (MAP) Pulse Ox O2 O2 Flow FiO2 Time Delivery Rate 08/10/18 98.1 66 18 144/64 98 Room Air 02:00 (90) Intake and Output 08/09/18 08/09/18 08/10/18 1515:00 23:00 07:00 IntakeIntake Total 320 ml OutputOutput Total 0 ml BalanceBalance 320 ml Constitutional: other Results Result Diagram: 08/08/186 08/08/18 2226 Medications Medication Current Medications IV Flush (NS 3 ml) 3 ml PER PROTOCOL IV ; Start 08/06/18 at 19:00 Acetaminophen (Tylenol Tab) 650 mg Q6H PRN PO .PAIN 1-3 OR TEMP; Start 08/06/18 at 19:00; Status Hold Phenol (Cepastat Lozenge) 1 lozenge Q1H PRN MT sore throat Last administered on 08/09/18at 14:43; Admin Dose 1 LOZENGE; Start 08/06/18 at 23:30 Miscellaneous Information (Pending [facility] Order For Wound Care) This patient lorenzana... PRN PRN XX WOUND CARE; Start 08/07/18 at 06:00 Vancomycin HCl (Vanco Iv Per Pharmacy) VANCOMYCIN PER PHARMACY PER PROTOCOL XX ; Start 08/07/18 at 07:00 Vancomycin HCl 1.75 gm/Sodium Chloride 500 ml @ 125 mls/hr Q12H IVPB Last administered on 08/08/18 10:25; Admin Dose 125 MLS/HR; Start 08/07/18 at 21:00; Status Hold Enoxaparin Sodium (Lovenox) 40 mg DAILY SC ; Start 08/08/18 at 09:00 Lactobacillus Acidophilus/ Rhamnosus (Culturelle) 1 cap BID PO Last administered on 08/09/18 21:16; Admin Dose 1 CAP; Start 08/07/18 at 21:00 Morphine Sulfate (morphine) 4 mg Q4H PRN IM .PAIN 7-10 Last administered on 08/09/18 18:24; Admin Dose 4 MG; Start 08/08/18 at 13:00 Ondansetron HCl (Zofran Inj) 4 mg Q4H PRN IV NAUSEA/VOMITING; Start 08/08/18 at 13:30 Oxycodone/ Acetaminophen (Endocet (10/ 325)) 1 tab Q3 PRN PO MODERATE PAIN LEVEL 4-6; Start 08/09/18 at 14:30 Magnesium Oxide (Mag-Ox 400) 400 mg BID PO Last administered on 08/09/18 21:16; Admin Dose 400 MG; Start 08/09/18 at 21:00 Trimethoprim/ Sulfamethoxazole (Bactrim (Ds)) 1 tab BID PO Last administered on 08/09/18 21:16; Admin Dose 1 TAB; Start 08/09/18 at 14:30 Guaifenesin/ Dextromethorphan (Robitussin Dm Liquid Cup) 10 ml Q4H PRN PO COUGH Last administered on 08/09/18 14:46; Admin Dose 10 ML; Start 08/09/18 at 15:00 KEVYN FONTANA August 10, 2018 07:35
[2018-08-10] MEDS: TRIMETHOPRIM/SULFAMETHOX (DS) TAB PO SCH ×2 (08:01→21:09)
[2018-08-10] MEDS: MAGNESIUM OXIDE 400 MG TAB PO SCH ×2 (08:01→21:09)
[2018-08-10] MEDS: morphine 4 MG/ML VIAL IM PRN ×4 (08:02→22:17)
[2018-08-10] MEDS: LACTOBACILLUS RHAMNOSUS CAP PO SCH ×2 (08:02→21:09)
[2018-08-10 08:08] VITALS: BP 154/85; PULSE 88; RESP 18
[2018-08-10] MEDS: CEPASTAT LOZENGE MT PRN ×2 (08:14→13:54)
[2018-08-10] MEDS: GUAIFENESIN/DM 5ML CUP PO PRN ×2 (08:14→13:54)
[2018-08-10] MEDS: ENOXAPARIN 40 MG/0.4 ML SYG SC SCH (09:00)
--- NOTE | 2018-08-10 12:23 | CONS ---
DATE OF ADMISSION: 08/06/2018 DATE OF CONSULTATION: 08/10/2018 TYPE OF CONSULTATION: Infectious disease. REASON FOR CONSULTATION: Antibiotic management. HISTORY OF PRESENT ILLNESS: Kunal Dick is a 28-year-old male well known to us from multiple previous hospital admissions. The patient has a history of: 1. Spina bifida with paraplegia. 2. Diabetes mellitus. 3. History of ventriculoperitoneal shunt. 4. History of bilateral knee surgeries. 5. Right ankle surgeries. 6. Status post cholecystectomy. Patient was sent in by Dr. Singletary for right ankle osteomyelitis with positive wound cultures. The patient has pain in the area. Denies fever, but has noted purulent drainage. No history of recent trauma. PAST MEDICAL HISTORY: Operations as outlined. FAMILY HISTORY: Noncontributory. SOCIAL HISTORY: He uses marijuana use. He smokes tobacco. He does not drink. ALLERGIES: 1. LATEX. 2. . 3. PAPAYA. 4. ZOSYN 5. IBUPROFEN. MEDICATIONS: Per chart. REVIEW OF SYSTEMS: Noncontributory. PHYSICAL EXAMINATION: GENERAL: This is a well-developed, well-nourished male, alert, responsive, in no acute dist ress. VITAL SIGNS: Stable. He is afebrile. SKIN: Without generalized rash. HEENT: Within normal limits. NECK: Supple. LYMPH NODES: None palpable. CHEST: Decreased breath sounds at the bases. HEART: Without murmur or gallop. ABDOMEN: Soft, nontender, nondistended, without organosplenomegaly or masses. EXTREMITIES: Without cyanosis, clubbing, or edema. He has a stage II ulcer over the right medial ma lleolus with surrounding erythema, a small amount of purulent drainage on admission. NEUROLOGICAL: The patient is paraplegic. HOSPITAL COURSE: The patient was seen by Dr. Singletary on the . Patient complains of ulceration on the ankle as well as pain to the hip and upper thigh. Recommend orthopedic consult for further e valuation. Initiate wound VAC therapy. The patient followed in the wound care clinic. He is curren tly on vancomycin. The patient has a history of wound debridement and bone resection in the past. U rine culture grew out Proteus mirabilis sensitive to virtually everything to cefotaxime, ampicillin, amikacin, resistant to Cipro. Blood cultures are negative. Ankle MRI was done. No discrete drainable collections. He has acute on chronic osteomyelitis of the anteromedial distal tibia slightly improved from the previous study 04/30. Additional small skin de fects near the Achilles tendon insertion at the posterior calcaneal tuberosity. Foot MRI heterogeneo us T2 signal involving the distal tibial metaphysis, medial malleolus concerning for osteomyelitis. Soft tissue swelling defect and osteomyelitis of the distal tibia was reported on MRI of the ankle on 08/09/2018, hip MRI was done, chronic remodeling. No definite evidence of acute osteomyelitis. Pel piotr CT showed posterior gluteal subcutaneous scarring and inflammation overlying the ischial tuberosi ties, chronic remodeling, severe diffuse muscular atrophy, right greater than left. Unremarkable x-r ay of the femur, no gross fracture or dislocation of the right hip, bilateral ventriculoperitoneal sh unts. Chest x-ray: Interval removal of the left PICC line, shunting tubes are seen. Right-sided ch est tubes are again seen unchanged. IMPRESSION AND PLAN: I would add cefepime to his regimen which should not interfere with his PENICIL REI ALLERGY. I will dictate my findings to Dr. Singletary and to the hospitalists. Dictated By: DIAN ROUSSEAU MD, JD/BRADY Conf#: [id number] DID#: [id number] CC: MAMTA SILVESTRE MD;*EndCC*
[2018-08-10] MEDS ORDERED: oxyCODONE 5 MG TAB PO PRN (14:30)
--- NOTE | 2018-08-10 14:35 | CONS ---
Assessment/Plan Assessment/Plan Assessment/Plan (Daily) Right ankle neuropathic chronic ulceration Right lower extremity osteomyelitis Spina Bifida Paraplegia Tobacco/marijuana abuse Plan Reviewed MRI findings with patient and reports of osteomyelitis to the ankle region with some improvement comparing to previous films. Recommend to continue with abx therapy as recommended. Patient in the past had vascular examination with PT artery stenosis recommend a vascular evaluation. Continue wound VAC therapy. Continue with IV abx. Offload heels with pillows. No surgical plan at this time. Discussed outpatient follow up and possible HBO therapy in outpatient setting. Consultation Date/Type/Reason Admit Date/Time August 06, 2018 at 18:58 Initial Consult Date Date/Time of Note DATE: 08/10/18 TIME: 14:35 24 HR Interval Summary Free Text/Dictation No acute events overnight. Exam/Review of Systems Exam Vitals Vital Signs Date Temp Pulse Resp B/P (MAP) Pulse Ox O2 O2 Flow FiO2 Time Delivery Rate 08/10/18 98.5 88 18 154/85 98 Room Air 08:08 (108) Intake and Output 08/09/18 08/09/18 08/10/18 1515:00 23:00 07:00 IntakeIntake Total 320 ml OutputOutput Total 0 ml BalanceBalance 320 ml Exam DP/PT pulses palpable Absent protective sensations Absent muscle strength to the lower extremity Mild pain on palpation to the right ankle ulceration site Wound VAC dressings clean dry and intact with scant serous drainage to the canister working at 125mmHg low continuous therapy. Results Result Diagram: 08/08/186 08/08/18 2226 Medications Medication Current Medications IV Flush (NS 3 ml) 3 ml PER PROTOCOL IV ; Start 08/06/18 at 19:00 Acetaminophen (Tylenol Tab) 650 mg Q6H PRN PO .PAIN 1-3 OR TEMP; Start 08/06/18 at 19:00; Status Hold Phenol (Cepastat Lozenge) 1 lozenge Q1H PRN MT sore throat Last administered on 08/10/18at 13:54; Admin Dose 1 LOZENGE; Start 08/06/18 at 23:30 Miscellaneous Information [facility] This patient lorenzana... PRN PRN XX WOUND CARE; Start 08/07/18 at 06:00 Vancomycin HCl (Vanco Iv Per Pharmacy) VANCOMYCIN PER PHARMACY PER PROTOCOL XX ; Start 08/07/18 at 07:00 Vancomycin HCl 1.75 gm/Sodium Chloride 500 ml @ 125 mls/hr Q12H IVPB Last administered on 08/08/18 10:25; Admin Dose 125 MLS/HR; Start 08/07/18 at 21:00; Status Hold Enoxaparin Sodium (Lovenox) 40 mg DAILY SC ; Start 08/08/18 at 09:00 Lactobacillus Acidophilus/ Rhamnosus (Culturelle) 1 cap BID PO Last administered on 08/10/18 08:02; Admin Dose 1 CAP; Start 08/07/18 at 21:00 Morphine Sulfate (morphine) 4 mg Q4H PRN IM .PAIN 7-10 Last administered on 08/10/18 13:54; Admin Dose 4 MG; Start 08/08/18 at 13:00 Ondansetron HCl (Zofran Inj) 4 mg Q4H PRN IV NAUSEA/VOMITING; Start 08/08/18 at 13:30 Oxycodone/ Acetaminophen (Endocet (10/ 325)) 1 tab Q3 PRN PO MODERATE PAIN LEVEL 4-6; Start 08/09/18 at 14:30; Status Hold Magnesium Oxide (Mag-Ox 400) 400 mg BID PO Last administered on 08/10/18 08:01; Admin Dose 400 MG; Start 08/09/18 at 21:00 Trimethoprim/ Sulfamethoxazole (Bactrim (Ds)) 1 tab BID PO Last administered on 08/10/18 08:01; Admin Dose 1 TAB; Start 08/09/18 at 14:30 Guaifenesin/ Dextromethorphan (Robitussin Dm Liquid Cup) 10 ml Q4H PRN PO COUGH Last administered on 08/10/18 13:54; Admin Dose 10 ML; Start 08/09/18 at 15:00 Cefepime HCl 50 ml @ 100 mls/hr Q12 IVPB ; Start 08/10/18 at 21:00 Oxycodone HCl (Roxicodone) 5 mg Q6 PRN PO MODERATE PAIN LEVEL 4-6; Start 07/29 06/16 at 14:30 Oxycodone HCl (Roxicodone) 10 mg Q6 PRN PO PAIN LEVEL 7-10; Start 08/10/18 at 14:30 LUCINA RINALDI DPM August 10, 2018 14:35
[2018-08-10] MEDS ORDERED: ALBUTEROL/IPRATROPIUM (NEB) 3 ML AMP HHN STA (14:40)
[2018-08-10 14:41] VITALS: BP 135/73; PULSE 84; RESP 17
--- NOTE | 2018-08-10 14:43 | PN ---
Date/Time of Note Date/Time of Note DATE: 08/10/18 TIME: 14:41 Assessment/Plan VTE Prophylaxis Risk score (from Nsg)>0 risk: 4 Pharmacological prophylaxis: LMWH Lines/Catheters IV Catheter Type (from Nrsg): Saline Lock Assessment/Plan Hospital Course 1. Chest x-ray was reviewed, but due to documentation, this may be the wrong report for this patient. Will notify radiology. 2. Pelvic x-ray showed bilateral ventriculoperitoneal shunts and a chronic deformity of the right pubic bone 3. Hip x-ray again notes deformity of right pubic bone 4. Femoral x-ray was unremarkable on the right 5. Pelvis CT showed posterior gluteal scarring and inflammation of the ischial tuberosities without discrete drainable fluid collection as well as chronic remodeling of the ischial tuberosities but no acute osteomyelitis. It also showed diffuse muscle atrophy, severe right greater than left 6. MRI of the hip: Basically showed findings on pelvis CT above 7. MRI right foot confirms presence of distal tibial/medial malleolus osteomyelitis without additional areas 8. MRI right ankle continues to show acute on chronic osteomyelitis with overlying skin ulceration without drainable fluid. Assessment and plan: 28-year-old known paraplegic from history of spinal bifida status post left bilateral [employer] shunt managed as follows: 1. Acute on chronic right lower extremity osteomyelitis 2. Posterior decubiti just abutting on his testicles 3. Right hip pain with imaging studies confirming degenerative changes of right pubic bone likely due to chronic remodeling 4. Chronic smoker with obstructive airway disease 5. Multiple allergies to medication including acetaminophen, NSAIDs, latex, 6. Proteus UTI 7. Transaminitis: -Serologic studies from May 2018- for hepatitis -Likely secondary to fatty liver, levels have trended down slightly -Continue to trend, will also get right upper quadrant ultrasound -Medication related? Plan: 1. Re-osteomyelitis: -Per the patient, no further surgical intervention planned per podiatry, patient does have his wound VAC in place, he has had this for a while. -Follow-up final antibiotic recommendations from ID 2. Re-: Right hip pain: Patient has evidence of degenerative joint disease, pain is likely chronic and will likely be ongoing. Will get orthopedic surgery to review to see if any acute interventions can be done 3. We will also give breathing treatments at this time, patient also counseled on the need to quit tobacco use Result Diagram: 08/08/18222508/08/182225 Subjective 24 Hr Interval Summary Free Text/Dictation cough ++ R hip pain radiating to R upper thigh Exam/Review of Systems Exam Vitals Vital Signs Date Temp Pulse Resp B/P (MAP) Pulse Ox O2 O2 Flow FiO2 Time Delivery Rate 08/10/18 98.5 88 18 154/85 98 Room Air 08:08 (108) Intake and Output 08/09/18 08/09/18 08/10/18 1515:00 23:00 07:00 IntakeIntake Total 320 ml OutputOutput Total 0 ml BalanceBalance 320 ml Exam General: A&O x3, answering questions appropriately, obese, no distress, chronic paraplegic, good upper extremity strength HEENT: NC/ AT. PERRL. EOM intact Neck: supple CVS: S1, S2, RRR. no murmurs. no pain on chest wall palpation Lungs: Patient has diminished breath sounds bilaterally, but in the left lung base he does have expiratory wheezing Abd: soft, nontender, +BS, obese Ext: Chronic paraplegic with good upper extremity strength, bilateral lower extremity muscle wasting, right ankle encased in clean dressing Back: Multiple healed scars from prior wounds, however just between his anus and his testicles, he does have a fairly clean ulcer without oozing Medications Medication Current Medications IV Flush (NS 3 ml) 3 ml PER PROTOCOL IV ; Start 08/06/18 at 19:00 Acetaminophen (Tylenol Tab) 650 mg Q6H PRN PO .PAIN 1-3 OR TEMP; Start 08/06/18 at 19:00; Status Hold Phenol (Cepastat Lozenge) 1 lozenge Q1H PRN MT sore throat Last administered on 08/10/18at 13:54; Admin Dose 1 LOZENGE; Start 08/06/18 at 23:30 Miscellaneous Information (Pending [facility] Order For Wound Care) This patient lorenzana... PRN PRN XX WOUND CARE; Start 08/07/18 at 06:00 Vancomycin HCl (Vanco Iv Per Pharmacy) VANCOMYCIN PER PHARMACY PER PROTOCOL XX ; Start 08/07/18 at 07:00 Vancomycin HCl 1.75 gm/Sodium Chloride 500 ml @ 125 mls/hr Q12H IVPB Last administered on 08/08/18at 10:25; Admin Dose 125 MLS/HR; Start 08/07/18 at 21:00; Status Hold Enoxaparin Sodium (Lovenox) 40 mg DAILY SC ; Start 08/08/18 at 09:00 Lactobacillus Acidophilus/ Rhamnosus (Culturelle) 1 cap BID PO Last administered on 08/10/18 08:02; Admin Dose 1 CAP; Start 08/07/18 at 21:00 Morphine Sulfate (morphine) 4 mg Q4H PRN IM .PAIN 7-10 Last administered on 08/10/18at 13:54; Admin Dose 4 MG; Start 08/08/18 at 13:00 Ondansetron HCl (Zofran Inj) 4 mg Q4H PRN IV NAUSEA/VOMITING; Start 08/08/18 at 13:30 Oxycodone/ Acetaminophen (Endocet (10/ 325)) 1 tab Q3 PRN PO MODERATE PAIN LEVEL 4-6; Start 08/09/18 at 14:30; Status Hold Magnesium Oxide (Mag-Ox 400) 400 mg BID PO Last administered on 08/10/18at 08:01; Admin Dose 400 MG; Start 08/09/18 at 21:00 Trimethoprim/ Sulfamethoxazole (Bactrim (Ds)) 1 tab BID PO Last administered on 08/10/18 08:01; Admin Dose 1 TAB; Start 08/09/18 at 14:30 Guaifenesin/ Dextromethorphan (Robitussin Dm Liquid Cup) 10 ml Q4H PRN PO COUGH Last administered on 08/10/18 13:54; Admin Dose 10 ML; Start 08/09/18 at 15:00 Cefepime HCl 50 ml @ 100 mls/hr Q12 IVPB ; Start 08/10/18 at 21:00 Oxycodone HCl (Roxicodone) 5 mg Q6 PRN PO MODERATE PAIN LEVEL 4-6; Start at 14:30 Oxycodone HCl (Roxicodone) 10 mg Q6 PRN PO PAIN LEVEL 7-10; Start 08/10/18 at 14:30 YESSY LEON August 10, 2018 14:42
[2018-08-10] MEDS ORDERED: ALBUTEROL/IPRATROPIUM (NEB) 3 ML AMP HHN PRN (15:00)
[2018-08-10] MEDS: oxyCODONE 5 MG TAB PO PRN ×2 (15:05→21:15)
[2018-08-10 18:29] VITALS: Ht 157.5 cm; Wt 95.4 kg
--- NOTE | 2018-08-10 20:39 | CONS ---
Assessment/Plan Assessment/Plan Hospital Course (Demo Recall) 28-year-old male with 2 weeks right lateral hip pain. This is most consistent with greater trochanteric bursitis and IT band tendinitis. He does have a stage III ulcer on his sacrum. This is not appear to be infected. MRI and CT scan are negative for fracture as well as pelvic and hip osteomyelitis. At this time recommending physical therapy and anti-inflammatories for the greater trochanteric bursitis and IT band tendinitis. Given that the patient is allergic to NSAIDs I recommend a short dose of steroids. However this must be done caution secondary to his healing wounds. Recommend continued wound care for sacral decubitus ulcer. Consultation Date/Type/Reason Admit Date/Time August 06, 2018 at 18:58 Date of Consultation: August 10, 2018 Reason for Consultation Right hip pain Date/Time of Note DATE: 08/10/18 TIME: 20:30 Hx of Present Illness 28-year-old male paraplegic secondary to spina bifida. Orthopedics was consulted because patient has 2-week history of right hip pain. Patient describes the pain as lateral aspect of his hip that radiates down his thigh. He does not recall any injury. He has not fallen out of bed or or wheelchair or during transfers. He has not had this pain before. He is being admitted for chronic osteomyelitis of the right ankle which is being treated by another service at this time. Patient denies fever, chills, shortness of breath, chest pain, nausea/vomiting, constipation, diarrhea, numbness, and tingling. Past Medical History Spina bifida Chronic osteomyelitis right ankle Home Meds Discontinued Scripts Clindamycin Hcl* (Clindamycin Hcl*) 150 Mg Capsule, 150 MG PO QID for 10 Days, CAP Prov:SAVAGE MARVIN MD 07/17/18 Medications Current Medications IV Flush (NS 3 ml) 3 ml PER PROTOCOL IV ; Start 08/06/18 at 19:00 Acetaminophen (Tylenol Tab) 650 mg Q6H PRN PO .PAIN 1-3 OR TEMP; Start 08/06/18 at 19:00; Status Hold Phenol (Cepastat Lozenge) 1 lozenge Q1H PRN MT sore throat Last administered on 08/10/18at 13:54; Admin Dose 1 LOZENGE; Start 08/06/18 at 23:30 Miscellaneous Information (Pending [facility]yl Order For Wound Care) This patient lorenzana... PRN PRN XX WOUND CARE; Start 08/07/18 at 06:00 Vancomycin HCl (Vanco Iv Per Pharmacy) VANCOMYCIN PER PHARMACY PER PROTOCOL XX ; Start 08/07/18 at 07:00 Vancomycin HCl 1.75 gm/Sodium Chloride 500 ml @ 125 mls/hr Q12H IVPB Last administered on 08/08/18at 10:25; Admin Dose 125 MLS/HR; Start 08/07/18 at 21:00; Status Hold Enoxaparin Sodium (Lovenox) 40 mg DAILY SC ; Start 08/08/18 at 09:00 Lactobacillus Acidophilus/ Rhamnosus (Culturelle) 1 cap BID PO Last administere d on 08/10/18at 08:02; Admin Dose 1 CAP; Start 08/07/18 at 21:00 Morphine Sulfate (morphine) 4 mg Q4H PRN IM .PAIN 7-10 Last administered on 08/10/18at 17:49; Admin Dose 4 MG; Start 08/08/18 at 13:00 Ondansetron HCl (Zofran Inj) 4 mg Q4H PRN IV NAUSEA/VOMITING; Start 08/08/18 at 13:30 Oxycodone/ Acetaminophen (Endocet (10/ 325)) 1 tab Q3 PRN PO MODERATE PAIN LEVEL 4-6; Start 08/09/18 at 14:30; Status Hold Magnesium Oxide (Mag-Ox 400) 400 mg BID PO Last administered on 08/10/18at 08:01; Admin Dose 400 MG; Start 08/09/18 at 21:00 Trimethoprim/ Sulfamethoxazole (Bactrim (Ds)) 1 tab BID PO Last administered on 08/10/18at 08:01; Admin Dose 1 TAB; Start 08/09/18 at 14:30 Guaifenesin/ Dextromethorphan (Robitussin Dm Liquid Cup) 10 ml Q4H PRN PO COUGH Last administered on 08/10/18at 13:54; Admin Dose 10 ML; Start 08/09/18 at 15:00 Cefepime HCl 50 ml @ 100 mls/hr Q12 IVPB ; Start 08/10/18 at 21:00 Oxycodone HCl (Roxicodone) 5 mg Q6 PRN PO MODERATE PAIN LEVEL 4-6; Start 08/10/18 at 14:30 Oxycodone HCl (Roxicodone) 10 mg Q6 PRN PO PAIN LEVEL 7-10 Last administered on 08/10/18at 15:05; Admin Dose 10 MG; Start 08/10/18 at 14:30 Albuterol/ Ipratropium (Duoneb) 3 ml Q2H RESP THERAPY PRN HHN Intractable cough, wheezing; Start 08/10/18 at 15:00 Allergies: Coded Allergies: latex (Unverified Allergy, Intermediate, RASH, 08/06/18) ketorolac (Unverified Allergy, Mild, RASH, 08/06/18) papaya (Unverified Allergy, Mild, 08/06/18) piperacillin (Unverified Allergy, Mild, 08/06/18) tazobactam (Unverified Allergy, Mild, 08/06/18) acetaminophen (Verified Allergy, Unknown, FACE SWELLS ?QUESTIONABLE ALLERGY, 08/09/18) PER RNFORREST, MR REDD TOLD HER THAT HE IS ALLERGIC TO TYLENOL. HE HAS RECEIVED 7 ENDOCET TABS SO FAR, NO FACE SWELLING. ibuprofen (Unverified Allergy, Unknown, LIP SWELLING, STATED THROAT IS CLOSING, 08/06/18) Past Surgical History Past Surgical Hx: noncontributory Family History Significant Family History: no pertinent family hx Social History Smoking Status: Current every day smoker Drug Use: other Exam/Review of Systems Exam Vitals Vital Signs Date Temp Pulse Resp B/P (MAP) Pulse Ox O2 O2 Flow FiO2 Time Delivery Rate 08/10/18 74 18 97 21 15:41 08/10/18 99.1 135/73 Room Air 14:41 (93) Intake and Output 08/09/18 08/09/18 08/10/18 1515:00 23:00 07:00 IntakeIntake Total 320 ml OutputOutput Total 0 ml BalanceBalance 320 ml Exam MUSCULOSKELETAL: Right lower extremity: There is a wound VAC over the anterior tibia. It is intact. No leak. There is diffuse muscle atrophy of the entire leg and chronic. Deformity of the foot. There is tenderness to palpation over the greater trochanteric bursa as well as the IT band. There is no erythema over the proximal thigh. There is no groin pain. There is no pain to logroll. There is a sacral decubitus ulcer stage III. There is no purulent drainage. There is good granulation tissue. Results Result Diagram: 08/10/18 1703 08/10/18 1703 Results 24hrs Laboratory Tests Test 08/10/18 17:03 White Blood Count 8.5 # Red Blood Count 5.21 Hemoglobin 14.7 Hematocrit 45.2 Mean Corpuscular Volume 86.8 Mean Corpuscular Hemoglobin 28.2 L Mean Corpuscular Hemoglobin Concent 32.5 Red Cell Distribution Width 13.4 Platelet Count 275 # Mean Platelet Volume 9.8 Immature Granulocytes % 0.600 H Neutrophils % 50.7 Lymphocytes % 30.8 Monocytes % 10.9 Eosinophils % 6.6 Basophils % 0.4 Nucleated Red Blood Cells % 0.0 Immature Granulocytes # 0.050 H Neutrophils # 4.3 Lymphocytes # 2.6 Monocytes # 0.9 Eosinophils # 0.6 H Basophils # 0.0 Nucleated Red Blood Cells # 0.0 Erythrocyte Sedimentation Rate 29 H Sodium Level 139 Potassium Level 4.5 Chloride Level 106 Carbon Dioxide Level 23 Anion Gap 10 Blood Urea Nitrogen 26 H Creatinine 0.73 Est Glomerular Filtrat Rate mL/min > 60 Glucose Level 113 Calcium Level 9.0 Total Bilirubin 0.4 Direct Bilirubin 0.00 Indirect Bilirubin 0.4 Aspartate Amino Transf (AST/SGOT) 165 H Alanine Aminotransferase (ALT/SGPT) 546 H Alkaline Phosphatase 360 H C-Reactive Protein 0.9 Total Protein 7.9 Albumin 3.9 Globulin 4.00 H Albumin/Globulin Ratio 0.97 Procalcitonin 0.[address] Pelvis 1. Posterior gluteal subcutaneous scarring and inflammation overlying the ischial tuberosities without discrete drainable fluid collection. If clinically warranted CT with IV contrast may provide additional detail. 2. Chronic remodelling of the underlying ischial tuberosities but no definite evidence of acute osteomyelitis at this time. 3. Severe diffuse muscle atrophy, right greater than left. 4. Additional chronic findings as above. MRI right Hip 1. Somewhat limited study due to motion artifact. Continued follow-up is advised. 2. Posterior gluteal subcutaneous scarring and inflammation overlying the ischial tuberosities without discrete drainable fluid collection. 3. Chronic remodelling of the underlying ischial tuberosities but no definite evidence of acute osteomyelitis at this time. 4. Severe diffuse muscle atrophy Medications Medication Current Medications IV Flush (NS 3 ml) 3 ml PER PROTOCOL IV ; Start 08/06/18 at 19:00 Acetaminophen (Tylenol Tab) 650 mg Q6H PRN PO .PAIN 1-3 OR TEMP; Start 08/06/18 at 19:00; Status Hold Phenol (Cepastat Lozenge) 1 lozenge Q1H PRN MT sore throat Last administered on 08/10/18at 13:54; Admin Dose 1 LOZENGE; Start 08/06/18 at 23:30 Miscellaneous Information (Pending [facility]yl Order For Wound Care) This patient lorenzana... PRN PRN XX WOUND CARE; Start 08/07/18 at 06:00 Vancomycin HCl (Vanco Iv Per Pharmacy) VANCOMYCIN PER PHARMACY PER PROTOCOL XX ; Start 08/07/18 at 07:00 Vancomycin HCl 1.75 gm/Sodium Chloride 500 ml @ 125 mls/hr Q12H IVPB Last administered on 08/08/18at 10:25; Admin Dose 125 MLS/HR; Start 08/07/18 at 21:00; Status Hold Enoxaparin Sodium (Lovenox) 40 mg DAILY SC ; Start 08/08/18 at 09:00 Lactobacillus Acidophilus/ Rhamnosus (Culturelle) 1 cap BID PO Last administered on 08/10/18at 08:02; Admin Dose 1 CAP; Start 08/07/18 at 21:00 Morphine Sulfate (morphine) 4 mg Q4H PRN IM .PAIN 7-10 Last administered on 08/10/18at 17:49; Admin Dose 4 MG; Start 08/08/18 at 13:00 Ondansetron HCl (Zofran Inj) 4 mg Q4H PRN IV NAUSEA/VOMITING; Start 08/08/18 at 13:30 Oxycodone/ Acetaminophen (Endocet (10/ 325)) 1 tab Q3 PRN PO MODERATE PAIN LEVEL 4-6; Start 08/09/18 at 14:30; Status Hold Magnesium Oxide (Mag-Ox 400) 400 mg BID PO Last administered on 08/10/18at 08:01; Admin Dose 400 MG; Start 08/09/18 at 21:00 Trimethoprim/ Sulfamethoxazole (Bactrim (Ds)) 1 tab BID PO Last administered on 08/10/18at 08:01; Admin Dose 1 TAB; Start 08/09/18 at 14:30 Guaifenesin/ Dextromethorphan (Robitussin Dm Liquid Cup) 10 ml Q4H PRN PO COUGH Last administered on 08/10/18at 13:54; Admin Dose 10 ML; Start 08/09/18 at 15:00 Cefepime HCl 50 ml @ 100 mls/hr Q12 IVPB ; Start 08/10/18 at 21:00 Oxycodone HCl (Roxicodone) 5 mg Q6 PRN PO MODERATE PAIN LEVEL 4-6; Start 08/10/18 at 14:30 Oxycodone HCl (Roxicodone) 10 mg Q6 PRN PO PAIN LEVEL 7-10 Last administered on 08/10/18at 15:05; Admin Dose 10 MG; Start 08/10/18 at 14:30 Albuterol/ Ipratropium (Duoneb) 3 ml Q2H RESP THERAPY PRN HHN Intractable cough, wheezing; Start 08/10/18 at 15:00 HUGO DANIEL MD August 10, 2018 20:39
[2018-08-10 20:46] VITALS: BP 131/90; PULSE 89; RESP 19
[2018-08-10] MEDS: CEFEPIME 1GM/50 ML (PMX) 50 ML IVPB SCH (21:00)
[2018-08-11 02:00] VITALS: BP 139/60; PULSE 72; RESP 19
[2018-08-11 07:30] VITALS: BP 108/51; PULSE 72; RESP 16
[2018-08-11] MEDS: TRIMETHOPRIM/SULFAMETHOX (DS) TAB PO SCH (08:50)
[2018-08-11] MEDS: MAGNESIUM OXIDE 400 MG TAB PO SCH ×2 (08:50→21:02)
[2018-08-11] MEDS: LACTOBACILLUS RHAMNOSUS CAP PO SCH ×2 (08:50→21:02)
[2018-08-11] MEDS: CEFEPIME 1GM/50 ML (PMX) 50 ML IVPB SCH ×2 (08:51→09:00)
[2018-08-11] MEDS: ENOXAPARIN 40 MG/0.4 ML SYG SC SCH (08:53)
[2018-08-11] MEDS: morphine 4 MG/ML VIAL IM PRN ×4 (09:01→21:04)
[2018-08-11] MEDS: GUAIFENESIN/DM 5ML CUP PO PRN ×2 (09:16→13:44)
[2018-08-11] MEDS: CEPASTAT LOZENGE MT PRN ×2 (09:19→13:44)
[2018-08-11] MEDS: oxyCODONE 5 MG TAB PO PRN ×2 (11:30→18:29)
[2018-08-11 14:15] VITALS: BP 134/74; PULSE 79; RESP 16
--- NOTE | 2018-08-11 14:48 | CONS ---
DATE OF ADMISSION: 08/06/2018 DATE OF CONSULTATION: 08/11/2018 REFERRING PHYSICIAN: Yessy Leon MD; Lucina Rinaldi MD REASON FOR CONSULTATION: Right foot nonhealing ulcer. HISTORY OF PRESENT ILLNESS: This is an unfortunate 28-year-old gentleman with nonhealing ulcer on the right ankle. He has spina bifida and is nonambulatory. He currently has a VAC on the wound. Wound care with Dr. Rinaldi. He had some arterial studies done today that show triphasic flow all the way down into both feet, with no signs of any arterial insufficiency in either lower extremity. MRI from 2 days ago showed no abscess, chronic osteomyelitis in the distal tibia. PAST MEDICAL HISTORY: Spina bifida, FURNACE [employer] shunt, recurrent UTIs and sacral decubitus ulcer. He has a chronic nonhealing right ankle ulcer with osteomyelitis. MEDICATIONS: Consist of: 1. Cefepime. 2. DuoNeb. 3. Albuterol. 4. Oxycodone. 5. Magnesium oxide. 6. Robitussin. 7. Bactrim. 8. Zofran. 9. Morphine. 10. Subcutaneous Lovenox. 11. Vancomycin. 12. Culturelle. 13. Tylenol. ALLERGIES: HE IS ALLERGIC TO LATEX, KETOROLAC, PAPAYA, PIPERACILLIN, TAZOBACTAM AND IBUPROFEN. FAMILY HISTORY: Noncontributory. SOCIAL HISTORY: He is a current every day smoker. REVIEW OF SYSTEMS: He denies chest pain, shortness of breath, nausea, vomiting, diarrhea. No fever, no chills, no recent weight gain or weight loss. He is nonambulatory because at this point as he is essentially bedridden. PHYSICAL EXAMINATION GENERAL: He is a very youngish gentleman. He is fairly friendly. He speaks German fluently. He is in no distress. He is a good historian. VITAL SIGNS: He has been afebrile. Blood pressure is 108/51, heart rate 60, respiratory rate is 16, heart rate 72. He is 98% sat on room air. NECK: He has 2+ radial and brachial pulses bilaterally. LUNGS: Clear. HEART: Regular rate and rhythm. ABDOMEN: Soft, nontender, nondistended. EXTREMITIES: He has 2+ femoral, popliteal and DP pulses bilaterally. They are quite strong. No signs of any significant arterial insufficiency. I reviewed his arterial duplex and it looks normal. The wound on the right ankle has a VAC in place currently. I did not remove it. It has a good seal. There is no drainage from it. IMPRESSION: Right ankle osteomyelitis. He has normal arterial circulation. There is no need for any vascular intervention. He can continue the VAC for now with IV antibiotics per ID. I am available for any further issues. Dictated By: ORAL ALVARADO/BRADY Conf#: [id number] DID#: [id number] CC: LUCINA RINALDI; YESSY LEON MD; MAMTA SILVESTRE MD; DIAN ROUSSEAU MD;*EndCC* MTDD
--- NOTE | 2018-08-11 14:55 | CONS ---
Assessment/Plan Assessment/Plan Hospital Course (Demo Recall) Patient is alert feels good no fevers overnight vital signs stable Urine culture grew Proteus mirabilis, blood cultures remain negative Antimicrobials: Patient is on cefepime and oral Bactrim Physical examination: Well-developed obese middle-aged man who is awake in no distress head atraumatic normocephalic sclera nonicteric vehicle mucosa pink neck is supple chest rise symmetrical breath sounds clear heart S1-S2 abdomen soft bowel sounds present extremities without cyanosis patient has wound VAC to his right ankle Assessment: 1. Right ankle chronic ulceration with chronic osteomyelitis 2. UTI 3. Spina bifida 4. Obesity 5. Incomplete paraplegia Plan: Patient grew multidrug-resistant organisms from his wound on July 30 at the wound clinic susceptible to amikacin, will change antibiotics to amikacin for 4 more weeks to complete treatment for osteomyelitis Consultation Date/Type/Reason Admit Date/Time August 06, 2018 at 18:58 Initial Consult Date 08/10/18 Type of Consult id Date/Time of Note DATE: 08/11/18 TIME: 14:55 Exam/Review of Systems Exam Vitals Vital Signs Date Temp Pulse Resp B/P (MAP) Pulse Ox O2 O2 Flow FiO2 Time Delivery Rate 08/11/18 98.3 79 16 134/74 98 Room Air 14:15 (94) 08/10/18 21 15:41 Intake and Output 08/10/18 08/10/18 08/11/18 1414:59 22:59 06:59 IntakeIntake Total 200 ml OutputOutput Total 500 ml BalanceBalance -300 ml Results Result Diagram: 08/10/18 1703 08/10/18 1703 Results 24hrs Laboratory Tests Test 08/10/18 17:03 White Blood Count 8.5 # Red Blood Count 5.21 Hemoglobin 14.7 Hematocrit 45.2 Mean Corpuscular Volume 86.8 Mean Corpuscular Hemoglobin 28.2 L Mean Corpuscular Hemoglobin Concent 32.5 Red Cell Distribution Width 13.4 Platelet Count 275 # Mean Platelet Volume 9.8 Immature Granulocytes % 0.600 H Neutrophils % 50.7 Lymphocytes % 30.8 Monocytes % 10.9 Eosinophils % 6.6 Basophils % 0.4 Nucleated Red Blood Cells % 0.0 Immature Granulocytes # 0.050 H Neutrophils # 4.3 Lymphocytes # 2.6 Monocytes # 0.9 Eosinophils # 0.6 H Basophils # 0.0 Nucleated Red Blood Cells # 0.0 Erythrocyte Sedimentation Rate 29 H Sodium Level 139 Potassium Level 4.5 Chloride Level 106 Carbon Dioxide Level 23 Anion Gap 10 Blood Urea Nitrogen 26 H Creatinine 0.73 Est Glomerular Filtrat Rate mL/min > 60 Glucose Level 113 Calcium Level 9.0 Total Bilirubin 0.4 Direct Bilirubin 0.00 Indirect Bilirubin 0.4 Aspartate Amino Transf (AST/SGOT) 165 H Alanine Aminotransferase (ALT/SGPT) 546 H Alkaline Phosphatase 360 H C-Reactive Protein 0.9 Total Protein 7.9 Albumin 3.9 Globulin 4.00 H Albumin/Globulin Ratio 0.97 Procalcitonin 0.10 Medications Medication Current Medications IV Flush (NS 3 ml) 3 ml PER PROTOCOL IV ; Start 08/06/18 at 19:00 Acetaminophen (Tylenol Tab) 650 mg Q6H PRN PO .PAIN 1-3 OR TEMP; Start 08/06/18 at 19:00; Status Hold Phenol (Cepastat Lozenge) 1 lozenge Q1H PRN MT sore throat Last administered on 08/11/18at 13:44; Admin Dose 1 LOZENGE; Start 08/06/18 at 23:30 [facility] This patient lorenzana... PRN PRN XX WOUND CARE; Start 08/07/18 at 06:00 Vancomycin HCl (Vanco Iv Per Pharmacy) VANCOMYCIN PER PHARMACY PER PROTOCOL XX ; Start 08/07/18 at 07:00 Vancomycin HCl 1.75 gm/Sodium Chloride 500 ml @ 125 mls/hr Q12H IVPB Last administered on 08/08/18at 10:25; Admin Dose 125 MLS/HR; Start 08/07/18 at 21:00; Status Hold Enoxaparin Sodium (Lovenox) 40 mg DAILY SC Last administered on 08/11/18at 08:53; Admin Dose 40 MG; Start 08/08/18 at 09:00 Lactobacillus Acidophilus/ Rhamnosus (Culturelle) 1 cap BID PO Last administered on 08/11/18at 08:50; Admin Dose 1 CAP; Start 08/07/18 at 21:00 Morphine Sulfate (morphine) 4 mg Q4H PRN IM .PAIN 7-10 Last administered on 08/11/18at 13:01; Admin Dose 4 MG; Start 08/08/18 at 13:00 Ondansetron HCl (Zofran Inj) 4 mg Q4H PRN IV NAUSEA/VOMITING; Start 08/08/18 at 13:30 Oxycodone/ Acetaminophen (Endocet (10/ 325)) 1 tab Q3 PRN PO MODERATE PAIN LEVEL 4-6; Start 08/09/18 at 14:30; Status Hold Magnesium Oxide (Mag-Ox 400) 400 mg BID PO Last administered on 08/11/18at 08:50; Admin Dose 400 MG; Start 08/09/18 at 21:00 Trimethoprim/ Sulfamethoxazole (Bactrim (Ds)) 1 tab BID PO Last administered on 08/11/18at 08:50; Admin Dose 1 TAB; Start 08/09/18 at 14:30 Guaifenesin/ Dextromethorphan (Robitussin Dm Liquid Cup) 10 ml Q4H PRN PO COUGH Last administered on 08/11/18at 13:44; Admin Dose 10 ML; Start 08/09/18 at 15:00 Cefepime HCl 50 ml @ 100 mls/hr Q12 IVPB ; Start 08/10/18 at 21:00 Oxycodone HCl (Roxicodone) 5 mg Q6 PRN PO MODERATE PAIN LEVEL 4-6; Start 08/10/18 at 14:30 Oxycodone HCl (Roxicodone) 10 mg Q6 PRN PO PAIN LEVEL 7-10 Last administered on 08/11/18at 11:30; Admin Dose 10 MG; Start 08/10/18 at 14:30 Albuterol/ Ipratropium (Duoneb) 3 ml Q2H RESP THERAPY PRN HHN Intractable cough, wheezing; Start 08/10/18 at 15:00 PAT RODRIGUEZ NP August 11, 2018 14:55
[2018-08-11] MEDS ORDERED: AMIKACIN IV PER PHARMACY XX SCH (15:00)
[2018-08-11] MEDS: AMIKACIN 1,000 MG in SOD CHLORIDE 0.9% 150 ML IVPB SCH (18:00)
[2018-08-11 20:10] VITALS: BP 117/67; PULSE 75; RESP 19
--- NOTE | 2018-08-11 21:30 | DS ---
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 Acute on chronic right lower extremity osteomyelitis 2. Posterior decubiti just abutting on his testicles 3. Right hip pain with imaging studies confirming degenerative changes of right pubic bone likely due to chronic remodeling -greater trochanteric bursitis and IT band tendinitis per ortho 4. Chronic smoker with obstructive airway disease 5. Multiple allergies to medication including acetaminophen, NSAIDs, latex, 6. Proteus UTI 7. Transaminitis: -Serologic studies from May 2018- for hepatitis -Likely secondary to fatty liver, levels have trended down slightly -Continue to trend, will also get right upper quadrant ultrasound -Medication related? Patient Condition: Stable Consults POdiatry: ID: Ortho: . Procedures 1. Chest x-ray was reviewed, but due to documentation, this may be the wrong report for this patient. Will notify radiology. 2. Pelvic x-ray showed bilateral ventriculoperitoneal shunts and a chronic deformity of the right pubic bone 3. Hip x-ray again notes deformity of right pubic bone 4. Femoral x-ray was unremarkable on the right 5. Pelvis CT showed posterior gluteal scarring and inflammation of the ischial tuberosities without discrete drainable fluid collection as well as chronic remodeling of the ischial tuberosities but no acute osteomyelitis. It also showed diffuse muscle atrophy, severe right greater than left 6. MRI of the hip: Basically showed findings on pelvis CT above 7. MRI right foot confirms presence of distal tibial/medial malleolus osteomyelitis without additional areas 8. MRI right ankle continues to show acute on chronic osteomyelitis with overlying skin ulceration without drainable fluid. . Hospital Course 28-year-old chronically paraplegic male from spinal bifida status post bilateral [employer]BL[employer] shunt, with history of recurrent osteomyelitis, decubiti, recurrent urinary tract infection who was [facility] to us [facility] for concern for right lower extremity cellulitis and poorly healing wound. He was also complaining about pain in his right hip radiating to his anterior thigh. For these 2 studies, he had a very extensive work-up. He was also found to have a chronic stage III ulcer, decubiti. Findings are summarized as above. At this time, his hip problems are likely from bursitis and tendinitis, and due to the fact that patient is allergic to acetaminophen and NSAIDs, orthopedic surgery has recommended steroids. For his osteomyelitis, based on his culture results, he will need IV antibiotics for 4 weeks per ID. He also had a Proteus UTI. Note that patient has had recurrent urinary tract infections from his chronic paraplegia. . Home Meds Discontinued Scripts Clindamycin Hcl* (Clindamycin Hcl*) 150 Mg Capsule, 150 MG PO QID for 10 Days, CAP Prov:SAVAGE MARVIN MD 07/17/18 Follow-up Plan Patient is going home with home health for IV antibiotics and will follow-up at [facility] [address] [address] [phone] . Primary Care Provider Not On Staff Doctor Time spent on discharge: > 30 minutes YESSY LEON August 11, 2018 21:30
[2018-08-11] MEDS ORDERED: HYDROmorphONE 1 MG/ML SYG IM ONE (23:30)
[2018-08-12] MEDS: morphine 4 MG/ML VIAL IM PRN ×5 (00:22→23:54)
[2018-08-12 02:00] VITALS: BP 107/50; PULSE 72; RESP 19
--- NOTE | 2018-08-12 07:04 | DS ---
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 Acute on chronic right lower extremity osteomyelitis 2. Posterior decubiti just abutting on his testicles 3. Right hip pain with imaging studies confirming degenerative changes of right pubic bone likely due to chronic remodeling -greater trochanteric bursitis and IT band tendinitis per ortho 4. Chronic smoker with obstructive airway disease 5. Multiple allergies to medication including acetaminophen, NSAIDs, latex, 6. Proteus UTI 7. Transaminitis: -Serologic studies from May 2018- for hepatitis -Likely secondary to fatty liver, levels have trended down slightly -Continue to trend, will also get right upper quadrant ultrasound -Medication related? Procedures GRAM STAIN Final POLYMORPH. LEUKOCYTE NONE SEEN GRAM NEGATIVE RODS 1+ WOUND CULTURE Final Organism 1 PSEUDOMONAS AERUGINOSA QUANTITY 3+ Organism 2 ESCHERICHIA COLI QUANTITY 2+ Organism 3 PROTEUS MIRABILIS QUANTITY 2+ P.AERUG E COLI P. MIRAB M.I.C. RX M.I.C. RX M.I.C. RX --------- --- --------- --- --------- --- AMIKACIN 4 S <=2 S AMPICILLIN >=32 R <=2 S AZTREONAM S CEFAZOLIN R CEFEPIME 8 S CEFOTAXIME S S CEFTAZIDIME 8 S CIPROFLOXACIN >=4 R >=4 R >=4 R GENTAMICIN >=16 R <=1 S 8 I LEVOFLOXACIN >=8 R >=8 R >=8 R TOBRAMYCIN >=16 R <=1 S 8 I TRIMETHOPRIM/SULFAMETHOXAZOLE >=320 R >=320 R PIPERACILLIN/TAZOBACTAM S Hospital Course Home Meds Discontinued Scripts Clindamycin Hcl* (Clindamycin Hcl*) 150 Mg Capsule, 150 MG PO QID for 10 Days, CAP Prov:SAVAGE MARIVN MD 07/17/18 Primary Care Provider Not On Staff Doctor YESSY LEON August 12, 2018 07:04
[2018-08-12] MEDS: ENOXAPARIN 40 MG/0.4 ML SYG SC SCH (09:00)
[2018-08-12] MEDS: MAGNESIUM OXIDE 400 MG TAB PO SCH ×2 (09:15→20:00)
[2018-08-12] MEDS: LACTOBACILLUS RHAMNOSUS CAP PO SCH ×2 (09:15→20:00)
[2018-08-12 10:11] VITALS: BP 122/56; PULSE 61; RESP 18
--- NOTE | 2018-08-12 11:32 | CONS ---
Assessment/Plan Assessment/Plan Hospital Course (Demo Recall) no acute events. All noted, no fevers overnight vital signs stable Urine culture grew Proteus mirabilis, blood cultures remain negative Antimicrobials: Amikacin Physical examination: Well-developed obese middle-aged man who is awake in no distress head atraumatic normocephalic sclera nonicteric vehicle mucosa pink neck is supple chest rise symmetrical breath sounds clear heart S1-S2 abdomen soft bowel sounds present extremities without cyanosis patient has wound VAC to his right ankle Assessment: 1. Right ankle chronic ulceration with chronic osteomyelitis==> wound cx + MDRO 2. UTI 3. Spina bifida 4. Obesity 5. Incomplete paraplegia Plan: Stable, pending dc arrangements on IV Amikacin for 4 more weeks once IV access established Consultation Date/Type/Reason Admit Date/Time August 06, 2018 at 18:58 Initial Consult Date 08/10/18 Type of Consult id Date/Time of Note DATE: 08/12/18 TIME: 11:30 Exam/Review of Systems Exam Vitals Vital Signs Date Temp Pulse Resp B/P (MAP) Pulse Ox O2 O2 Flow FiO2 Time Delivery Rate 08/12/18 97.8 61 18 122/56 94 10:11 (78) 08/11/18 Room Air 14:15 08/10/18 21 15:41 Intake and Output 08/11/18 08/11/18 08/12/18 1515:00 23:00 07:00 IntakeIntake Total 760 ml 400 ml 300 ml OutputOutput Total 300 ml BalanceBalance 760 ml 400 ml 0 ml Results Result Diagram: 08/10/18 1703 08/10/18 1703 Medications Medication Current Medications IV Flush (NS 3 ml) 3 ml PER PROTOCOL IV ; Start 08/06/18 at 19:00 Acetaminophen (Tylenol Tab) 650 mg Q6H PRN PO .PAIN 1-3 OR TEMP; Start 08/06/18 at 19:00; Status Hold Phenol (Cepastat Lozenge) 1 lozenge Q1H PRN MT sore throat Last administered on 08/11/18at 13:44; Admin Dose 1 LOZENGE; Start 08/06/18 at 23:30 Miscellaneous Information (Pending [facility] Order For Wound Care) This patient lorenzana... PRN PRN XX WOUND CARE; Start 08/07/18 at 06:00 Enoxaparin Sodium (Lovenox) 40 mg DAILY SC Last administered on 08/11/18at 08:53; Admin Dose 40 MG; Start 08/08/18 at 09:00 Lactobacillus Acidophilus/ Rhamnosus (Culturelle) 1 cap BID PO Last administered on 08/12/18at 09:15; Admin Dose 1 CAP; Start 08/07/18 at 21:00 Morphine Sulfate (morphine) 4 mg Q4H PRN IM .PAIN 7-10 Last administered on 08/12/18at 00:22; Admin Dose 4 MG; Start 08/08/18 at 13:00 Ondansetron HCl (Zofran Inj) 4 mg Q4H PRN IV NAUSEA/VOMITING; Start 08/08/18 at 13:30 Oxycodone/ Acetaminophen (Endocet (10/ 325)) 1 tab Q3 PRN PO MODERATE PAIN LEVEL 4-6; Start 08/09/18 at 14:30; Status Hold Magnesium Oxide (Mag-Ox 400) 400 mg BID PO Last administered on 08/12/18at 09: 15; Admin Dose 400 MG; Start 08/09/18 at 21:00 Guaifenesin/ Dextromethorphan (Robitussin Dm Liquid Cup) 10 ml Q4H PRN PO COUGH Last administered on 08/11/18at 13:44; Admin Dose 10 ML; Start 08/09/18 at 15:00 Oxycodone HCl (Roxicodone) 5 mg Q6 PRN PO MODERATE PAIN LEVEL 4-6; Start 08/10/18 at 14:30 Oxycodone HCl (Roxicodone) 10 mg Q6 PRN PO PAIN LEVEL 7-10 Last administered on 08/11/18at 18:29; Admin Dose 10 MG; Start 08/10/18 at 14:30 Albuterol/ Ipratropium (Duoneb) 3 ml Q2H RESP THERAPY PRN HHN Intractable cough, wheezing; Start 08/10/18 at 15:00 Amikacin Sulfate (Amikacin Iv Per Pharmacy) AMIKACIN PER PHARMACY NOTE XX ; Start 08/11/18 at 15:00 Amikacin Sulfate 1000 mg/Sodium Chloride 154 ml @ 154 mls/hr Q24H IVPB ; Start 08/11/18 at 18:00 PAT RODRIGUEZ NP August 12, 2018 11:32
--- NOTE | 2018-08-12 11:49 | PN ---
Date/Time of Note Date/Time of Note DATE: 08/12/18 TIME: 11:35 Assessment/Plan VTE Prophylaxis Risk score (from Nsg)>0 risk: 5 SCD applied (from Nsg): Yes Pharmacological prophylaxis: LMWH Lines/Catheters IV Catheter Type (from Nrs): no IV acsess Assessment/Plan Hospital Course S; no new issues O: GENERAL: He is a very youngish gentleman. He is fairly friendly. He speaks Belizean fluently. He is in no distress. NECK: He has 2+ radial and brachial pulses bilaterally. LUNGS: Clear. HEART: Regular rate and rhythm. ABDOMEN: Soft, nontender, nondistended. EXTREMITIES: He has 2+ femoral, popliteal and DP pulses bilaterally. They are quite strong. No signs of any significant arterial insufficiency. The wound on the right ankle has a VAC in place currently. I did not remove it. It has a good seal. There is no drainage from it. 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 Acute on chronic right lower extremity osteomyelitis 2. Posterior decubiti just abutting on his testicles 3. Right hip pain with imaging studies confirming degenerative changes of right pubic bone likely due to chronic remodeling -greater trochanteric bursitis and IT band tendinitis per ortho -recommends steroids 4. Chronic smoker with obstructive airway disease 5. Multiple allergies to medication including acetaminophen, NSAIDs, latex, 6. Proteus UTI : on abx 7. Transaminitis: -Serologic studies from May 2018- for hepatitis -Likely secondary to fatty liver, levels have trended down slightly -Continue to trend -US showing fatty liver and concern for hemangioma Plan: 1. Re-osteomyelitis: -Per the patient, no further surgical intervention planned per podiatry, patient does have his wound VAC in place, he has had this for a while. ID recommending IV amikacin for 4 weeks. -Radiology nurse attempted PICC line/midline but was unsuccessful. -spoke with vascular, next resort is to try to have radiology put in a port--cath 2. continue steroids for tendinitis 3. Tobacco cessation reinforced. Dispo: - Patient will get MRI liver with contrast since it is not likely he is to be discharged today. Will await discussion with radiology as well as vascular surgery for long-term IV access. Result Diagram: 08/10/18 1703 08/10/18 1703 Exam/Review of Systems Exam Vitals Vital Signs Date Temp Pulse Resp B/P (MAP) Pulse Ox O2 O2 Flow FiO2 Time Delivery Rate 08/12/18 97.8 61 18 122/56 94 10:11 (78) 08/11/18 Room Air 14:15 08/10/18 21 15:41 Intake and Output 08/11/18 08/11/18 08/12/18 1515:00 23:00 07:00 IntakeIntake Total 760 ml 400 ml 300 ml OutputOutput Total 300 ml BalanceBalance 760 ml 400 ml 0 ml Medications Medication Current Medications IV Flush (NS 3 ml) 3 ml PER PROTOCOL IV ; Start 08/06/18 at 19:00 Acetaminophen (Tylenol Tab) 650 mg Q6H PRN PO .PAIN 1-3 OR TEMP; Start 08/06/18 at 19:00; Status Hold Phenol (Cepastat Lozenge) 1 lozenge Q1H PRN MT sore throat Last administered on 08/11/18at 13:44; Admin Dose 1 LOZENGE; Start 08/06/18 at 23:30 Miscellaneous Information (Pending [facility] Order For Wound Care) This patient lorenzana... PRN PRN XX WOUND CARE; Start 08/07/18 at 06:00 Enoxaparin Sodium (Lovenox) 40 mg DAILY SC Last administered on 08/11/18at 08:53; Admin Dose 40 MG; Start 08/08/18 at 09:00 Lactobacillus Acidophilus/ Rhamnosus (Culturelle) 1 cap BID PO Last administered on 08/12/18at 09:15; Admin Dose 1 CAP; Start 08/07/18 at 21:00 Morphine Sulfate (morphine) 4 mg Q4H PRN IM .PAIN 7-10 Last administered on 08/12/18at 00:22; Admin Dose 4 MG; Start 08/08/18 at 13:00 Ondansetron HCl (Zofran Inj) 4 mg Q4H PRN IV NAUSEA/VOMITING; Start 08/08/18 at 13:30 Oxycodone/ Acetaminophen (Endocet (10/ 325)) 1 tab Q3 PRN PO MODERATE PAIN LEVEL 4-6; Start 08/09/18 at 14:30; Status Hold Magnesium Oxide (Mag-Ox 400) 400 mg BID PO Last administered on 08/12/18at 09:15; Admin Dose 400 MG; Start 08/09/18 at 21:00 Guaifenesin/ Dextromethorphan (Robitussin Dm Liquid Cup) 10 ml Q4H PRN PO COUGH Last administered on 08/11/18at 13:44; Admin Dose 10 ML; Start 08/09/18 at 15:00 Oxycodone HCl (Roxicodone) 5 mg Q6 PRN PO MODERATE PAIN LEVEL 4-6; Start 08/10/18 at 14:30 Oxycodone HCl (Roxicodone) 10 mg Q6 PRN PO PAIN LEVEL 7-10 Last administered on 08/11/18at 18:29; Admin Dose 10 MG; Start 08/10/18 at 14:30 Albuterol/ Ipratropium (Duoneb) 3 ml Q2H RESP THERAPY PRN HHN Intractable cough, wheezing; Start 08/10/18 at 15:00 Amikacin Sulfate (Amikacin Iv Per Pharmacy) AMIKACIN PER PHARMACY NOTE XX ; Start 08/11/18 at 15:00 Amikacin Sulfate 1000 mg/Sodium Chloride 154 ml @ 154 mls/hr Q24H IVPB ; Start 08/11/18 at 18:00 YESSY LEON August 12, 2018 11:47
[2018-08-12] MEDS: CEPASTAT LOZENGE MT PRN (12:38)
[2018-08-12] MEDS: GUAIFENESIN/DM 5ML CUP PO PRN (12:38)
[2018-08-12] MEDS ORDERED: METHYLPREDNISOLONE (MEDROL) DOSE PACK PO SCH (13:00)
[2018-08-12] MEDS ORDERED: METHYLPREDNISOLONE 4 MG TAB PO SCH (13:00)
[2018-08-12] MEDS: oxyCODONE 5 MG TAB PO PRN ×2 (13:00→19:03)
[2018-08-12 14:22] VITALS: BP 131/68; PULSE 84; RESP 18
[2018-08-12] MEDS: AMIKACIN 1,000 MG in SOD CHLORIDE 0.9% 150 ML IVPB SCH (17:45)
[2018-08-12 20:15] VITALS: BP 139/81; PULSE 82; RESP 18
[2018-08-12] MEDS ORDERED: HYDROmorphONE 0.5 MG/0.5 ML SYG IM ONE (21:00)
[2018-08-13 02:12] VITALS: BP 123/89; PULSE 87; RESP 18
[2018-08-13] MEDS ORDERED: METHYLPREDNISOLONE 4 MG TAB PO SCH ×4 (07:30→21:00)
[2018-08-13] MEDS: ENOXAPARIN 40 MG/0.4 ML SYG SC SCH (07:48)
[2018-08-13] MEDS: MAGNESIUM OXIDE 400 MG TAB PO SCH ×2 (07:48→21:08)
[2018-08-13] MEDS: LACTOBACILLUS RHAMNOSUS CAP PO SCH ×2 (07:48→21:08)
[2018-08-13] MEDS: morphine 4 MG/ML VIAL IM PRN ×2 (08:34→13:27)
[2018-08-13 09:05] VITALS: BP 135/86; PULSE 87; RESP 18
--- NOTE | 2018-08-13 12:54 | PN ---
Date/Time of Note Date/Time of Note DATE: 08/13/18 TIME: 12:52 Assessment/Plan VTE Prophylaxis Risk score (from Nsg)>0 risk: 5 SCD applied (from Nsg): Yes Pharmacological prophylaxis: LMWH Lines/Catheters IV Catheter Type (from Nrsg): Saline Lock Assessment/Plan Hospital Course S; no new issues O: GENERAL: obese, young gentleman. He is fairly friendly. He speaks Divehi fluently. He is in no distress. NECK: He has 2+ radial and brachial pulses bilaterally. LUNGS: Clear. HEART: Regular rate and rhythm. ABDOMEN: Soft, nontender, nondistended. EXTREMITIES: He has 2+ femoral, popliteal and DP pulses bilaterally. They are quite strong. No signs of any significant arterial insufficiency. The wound on the right ankle has a VAC in place currently. I did not remove it. It has a good seal. There is no drainage from it. 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 Acute on chronic right lower extremity osteomyelitis 2. Posterior decubiti just abutting on his testicles -continue wound care 3. Right hip pain with imaging studies confirming degenerative changes of right pubic bone likely due to chronic remodeling -greater trochanteric bursitis and IT band tendinitis per ortho -recommends steroids 4. Chronic smoker with obstructive airway disease 5. Multiple allergies to medication including acetaminophen, NSAIDs, latex, 6. Proteus UTI : on abx 7. Transaminitis: -Serologic studies from May 2018- for hepatitis -Likely secondary to fatty liver, levels have trended down slightly -Continue to trend -US showing fatty liver and concern for hemangioma Plan: 1. Re-osteomyelitis: -Per the patient, no further surgical intervention planned per podiatry, patient does have his wound VAC in place, he has had this for a while. ID recommending IV amikacin for 4 weeks. -Radiology nurse attempted PICC line/midline but was unsuccessful. -spoke with vascular, next resort is to try to have radiology put in a port--cath 2. continue steroids for tendinitis 3. Tobacco cessation reinforced. Dispo: - Patient awaiting MRI liver with contrast and port placement for IV abx Result Diagram: 08/13/18 1027 08/13/18 1027 Results 24hrs Laboratory Tests Test 08/13/18 10:27 White Blood Count 13.7 #H Red Blood Count 5.44 Hemoglobin 15.3 Hematocrit 48.3 Mean Corpuscular Volume 88.8 Mean Corpuscular Hemoglobin 28.1 L Mean Corpuscular Hemoglobin Concent 31.7 L Red Cell Distribution Width 13.5 Platelet Count 305 Mean Platelet Volume 9.5 Immature Granulocytes % 1.100 H Neutrophils % 69.8 Lymphocytes % 17.9 Monocytes % 10.5 Eosinophils % 0.4 Basophils % 0.3 Nucleated Red Blood Cells % 0.0 Immature Granulocytes # 0.150 H Neutrophils # 9.5 H Lymphocytes # 2.4 Monocytes # 1.4 H Eosinophils # 0.1 Basophils # 0.0 Nucleated Red Blood Cells # 0.0 Sodium Level 143 Potassium Level 4.6 Chloride Level 111 H Carbon Dioxide Level 22 Anion Gap 10 Blood Urea Nitrogen 33 H Creatinine 0.49 L Est Glomerular Filtrat Rate mL/min > 60 Glucose Level 124 Calcium Level 9.5 Magnesium Level 1.9 Exam/Review of Systems Exam Vitals Vital Signs Date Temp Pulse Resp B/P (MAP) Pulse Ox O2 O2 Flow FiO2 Time Delivery Rate 08/13/18 97.8 87 18 135/86 95 09:05 (102) 08/11/18 Room Air 14:15 08/10/18 21 15:41 Intake and Output 08/12/18 08/12/18 08/13/18 1515:00 23:00 07:00 IntakeIntake Total 360 ml 480 ml 250 ml OutputOutput Total 0 ml BalanceBalance 360 ml 480 ml 250 ml Results Results 24hrs Laboratory Tests Test 08/13/18 10:27 White Blood Count 13.7 #H Red Blood Count 5.44 Hemoglobin 15.3 Hematocrit 48.3 Mean Corpuscular Volume 88.8 Mean Corpuscular Hemoglobin 28.1 L Mean Corpuscular Hemoglobin Concent 31.7 L Red Cell Distribution Width 13.5 Platelet Count 305 Mean Platelet Volume 9.5 Immature Granulocytes % 1.100 H Neutrophils % 69.8 Lymphocytes % 17.9 Monocytes % 10.5 Eosinophils % 0.4 Basophils % 0.3 Nucleated Red Blood Cells % 0.0 Immature Granulocytes # 0.150 H Neutrophils # 9.5 H Lymphocytes # 2.4 Monocytes # 1.4 H Eosinophils # 0.1 Basophils # 0.0 Nucleated Red Blood Cells # 0.0 Sodium Level 143 Potassium Level 4.6 Chloride Level 111 H Carbon Dioxide Level 22 Anion Gap 10 Blood Urea Nitrogen 33 H Creatinine 0.49 L Est Glomerular Filtrat Rate mL/min > 60 Glucose Level 124 Calcium Level 9.5 Magnesium Level 1.9 Medications Medication Current Medications IV Flush (NS 3 ml) 3 ml PER PROTOCOL IV ; Start 08/06/18 at 19:00 Acetaminophen (Tylenol Tab) 650 mg Q6H PRN PO .PAIN 1-3 OR TEMP; Start 08/06/18 at 19:00; Status Hold Phenol (Cepastat Lozenge) 1 lozenge Q1H PRN MT sore throat Last administered on 08/12/18 12:38; Admin Dose 1 LOZENGE; Start 08/06/18 at 23:30 Miscellaneous Information ([facility] This patient lorenzana... PRN PRN XX WOUND CARE; Start 08/07/18 at 06:00 Enoxaparin Sodium (Lovenox) 40 mg DAILY SC Last administered on 08/11/18at 08:53; Admin Dose 40 MG; Start 08/08/18 at 09:00 Lactobacillus Acidophilus/ Rhamnosus (Culturelle) 1 cap BID PO Last administered on 08/12/18 20:00; Admin Dose 1 CAP; Start 08/07/18 at 21:00 Morphine Sulfate (morphine) 4 mg Q4H PRN IM .PAIN 7-10 Last administered on 08/13/18 08:34; Admin Dose 4 MG; Start 08/08/18 at 13:00 Ondansetron HCl (Zofran Inj) 4 mg Q4H PRN IV NAUSEA/VOMITING; Start 08/08/18 at 13:30 Oxycodone/ Acetaminophen (Endocet (10/ 325)) 1 tab Q3 PRN PO MODERATE PAIN LEVEL 4-6; Start 08/09/18 at 14:30; Status Hold Magnesium Oxide (Mag-Ox 400) 400 mg BID PO Last administered on 08/12/18 20:00; Admin Dose 400 MG; Start 08/09/18 at 21:00 Guaifenesin/ Dextromethorphan (Robitussin Dm Liquid Cup) 10 ml Q4H PRN PO COUGH Last administered on 08/12/18at 12:38; Admin Dose 10 ML; Start 08/09/18 at 15:00 Oxycodone HCl (Roxicodone) 5 mg Q6 PRN PO MODERATE PAIN LEVEL 4-6; Start 08/10/18 at 14:30 Oxycodone HCl (Roxicodone) 10 mg Q6 PRN PO PAIN LEVEL 7-10 Last administered on 08/12/18at 19:03; Admin Dose 10 MG; Start 08/10/18 at 14:30 Albuterol/ Ipratropium (Duoneb) 3 ml Q2H RESP THERAPY PRN HHN Intractable cough, wheezing; Start 08/10/18 at 15:00 Amikacin Sulfate (Amikacin Iv Per Pharmacy) AMIKACIN PER PHARMACY NOTE XX ; Start 08/11/18 at 15:00 Amikacin Sulfate 1000 mg/Sodium Chloride 154 ml @ 154 mls/hr Q24H IVPB ; Start 08/11/18 at 18:00 Methylprednisolone (Medrol Dose Pack) ay 1: 24 mg on day 1, administe... STD DOSE PACK PO ; Start 08/12/18 at 13:00; Stop 08/17/18 at 12:59 Methylprednisolone (Medrol) 4 mg AC BREAKFAST PO ; Start 08/13/18 at 07:30; Stop 08/17/18 at 07:31 Methylprednisolone (Medrol) 4 mg PC LUNCH PO ; Start 08/13/18 at 13:00; Stop 08/15/18 at 13:01 Methylprednisolone (Medrol) 4 mg PC DINNER PO ; Start 08/13/18 at 19:05; Stop 08/14/18 at 19:06 Methylprednisolone (Medrol) 8 mg HS PO ; Start 08/13/18 at 21:00; Stop 08/13/18 at 21:01 Methylprednisolone (Medrol) 4 mg HS PO ; Start 08/14/18 at 21:00; Stop 08/16/18 at 21:01 YESSY LEON August 13, 2018 12:54
--- NOTE | 2018-08-13 13:08 | CONS ---
Assessment/Plan Assessment/Plan Hospital Course (Demo Recall) no acute events, awake, looks comfortable Urine culture grew Proteus mirabilis, blood cultures remain negative Antimicrobials: Amikacin Physical examination: Well-developed obese middle-aged man who is awake in no distress head atraumatic normocephalic sclera nonicteric vehicle mucosa pink neck is supple chest rise symmetrical breath sounds clear heart S1-S2 abdomen soft bowel sounds present extremities without cyanosis patient has wound VAC to his right ankle Assessment: 1. Right ankle chronic ulceration with chronic osteomyelitis==> wound cx + MDRO 2. UTI 3. Spina bifida 4. Obesity 5. Incomplete paraplegia Plan: Stable, pending dc arrangements on IV Amikacin for 4 more weeks once IV access established Consultation Date/Type/Reason Admit Date/Time August 06, 2018 at 18:58 Initial Consult Date 08/10/18 Type of Consult id Date/Time of Note DATE: 08/13/18 TIME: 13:07 Exam/Review of Systems Exam Vitals Vital Signs Date Temp Pulse Resp B/P (MAP) Pulse Ox O2 O2 Flow FiO2 Time Delivery Rate 08/13/18 97.8 87 18 135/86 95 09:05 (102) 08/11/18 Room Air 14:15 08/10/18 21 15:41 Intake and Output 08/12/18 08/12/18 08/13/18 1515:00 23:00 07:00 IntakeIntake Total 360 ml 480 ml 250 ml OutputOutput Total 0 ml BalanceBalance 360 ml 480 ml 250 ml Results Result Diagram: 08/13/18 1027 08/13/18 1027 Results 24hrs Laboratory Tests Test 08/13/18 10:27 White Blood Count 13.7 #H Red Blood Count 5.44 Hemoglobin 15.3 Hematocrit 48.3 Mean Corpuscular Volume 88.8 Mean Corpuscular Hemoglobin 28.1 L Mean Corpuscular Hemoglobin Concent 31.7 L Red Cell Distribution Width 13.5 Platelet Count 305 Mean Platelet Volume 9.5 Immature Granulocytes % 1.100 H Neutrophils % 69.8 Lymphocytes % 17.9 Monocytes % 10.5 Eosinophils % 0.4 Basophils % 0.3 Nucleated Red Blood Cells % 0.0 Immature Granulocytes # 0.150 H Neutrophils # 9.5 H Lymphocytes # 2.4 Monocytes # 1.4 H Eosinophils # 0.1 Basophils # 0.0 Nucleated Red Blood Cells # 0.0 Sodium Level 143 Potassium Level 4.6 Chloride Level 111 H Carbon Dioxide Level 22 Anion Gap 10 Blood Urea Nitrogen 33 H Creatinine 0.49 L Est Glomerular Filtrat Rate mL/min > 60 Glucose Level 124 Calcium Level 9.5 Magnesium Level 1.9 Medications Medication Current Medications IV Flush (NS 3 ml) 3 ml PER PROTOCOL IV ; Start 08/06/18 at 19:00 Acetaminophen (Tylenol Tab) 650 mg Q6H PRN PO .PAIN 1-3 OR TEMP; Start 08/06/18 at 19:00; Status Hold Phenol (Cepastat Lozenge) 1 lozenge Q1H PRN MT sore throat Last administered on 08/12/18 12:38; Admin Dose 1 LOZENGE; Start 08/06/18 at 23:30 [facility]isc[facility] This patient lorenzana... PRN PRN XX WOUND CARE; Start 08/07/18 at 06:00 Enoxaparin Sodium (Lovenox) 40 mg DAILY SC Last administered on 08/11/18 08:53; Admin Dose 40 MG; Start 08/08/18 at 09:00 Lactobacillus Acidophilus/ Rhamnosus (Culturelle) 1 cap BID PO Last administered on 08/12/18 20:00; Admin Dose 1 CAP; Start 08/07/18 at 21:00 Morphine Sulfate (morphine) 4 mg Q4H PRN IM .PAIN 7-10 Last administered on 08/13/18 08:34; Admin Dose 4 MG; Start 08/08/18 at 13:00 Ondansetron HCl (Zofran Inj) 4 mg Q4H PRN IV NAUSEA/VOMITING; Start 08/08/18 at 13:30 Oxycodone/ Acetaminophen (Endocet (10/ 325)) 1 tab Q3 PRN PO MODERATE PAIN LEVEL 4-6; Start 08/09/18 at 14:30; Status Hold Magnesium Oxide (Mag-Ox 400) 400 mg BID PO Last administered on 08/12/18 20:00; Admin Dose 400 MG; Start 08/09/18 at 21:00 Guaifenesin/ Dextromethorphan (Robitussin Dm Liquid Cup) 10 ml Q4H PRN PO COUGH Last administered on 08/12/18 12:38; Admin Dose 10 ML; Start 08/09/18 at 15:00 Oxycodone HCl (Roxicodone) 5 mg Q6 PRN PO MODERATE PAIN LEVEL 4-6; Start 08/10/18 at 14:30 Oxycodone HCl (Roxicodone) 10 mg Q6 PRN PO PAIN LEVEL 7-10 Last administered on 08/12/18at 19:03; Admin Dose 10 MG; Start 08/10/18 at 14:30 Albuterol/ Ipratropium (Duoneb) 3 ml Q2H RESP THERAPY PRN HHN Intractable cough, wheezing; Start 08/10/18 at 15:00 Amikacin Sulfate (Amikacin Iv Per Pharmacy) AMIKACIN PER PHARMACY NOTE XX ; Start 08/11/18 at 15:00 Amikacin Sulfate 1000 mg/Sodium Chloride 154 ml @ 154 mls/hr Q24H IVPB ; Start 08/11/18 at 18:00 Methylprednisolone (Medrol Dose Pack) ay 1: 24 mg on day 1, administe... STD DOSE PACK PO ; Start 08/12/18 at 13:00; Stop 08/17/18 at 12:59 Methylprednisolone (Medrol) 4 mg AC BREAKFAST PO ; Start 08/13/18 at 07:30; Stop 08/17/18 at 07:31 Methylprednisolone (Medrol) 4 mg PC LUNCH PO ; Start 08/13/18 at 13:00; Stop 08/15/18 at 13:01 Methylprednisolone (Medrol) 4 mg PC DINNER PO ; Start 08/13/18 at 19:05; Stop 08/14/18 at 19:06 Methylprednisolone (Medrol) 8 mg HS PO ; Start 08/13/18 at 21:00; Stop 08/13/18 at 21:01 Methylprednisolone (Medrol) 4 mg HS PO ; Start 08/14/18 at 21:00; Stop 08/16/18 at 21:01 PAT RODRIGUEZ NP August 13, 2018 13:08
[2018-08-13] MEDS ORDERED: HEPARIN 1000 UNITS/ML 10 ML INJ ONE (14:41)
[2018-08-13 14:49] VITALS: BP 132/63; PULSE 58; RESP 18
[2018-08-13] MEDS ORDERED: FENTAnyl 50 MCG/ML VIAL ONE (14:58)
[2018-08-13] MEDS ORDERED: CEFAZOLIN 1 GM/50 ML (PMX) 50 ML IVPB ONE (14:58)
[2018-08-13] MEDS ORDERED: POLYMYXIN/BACITRACIN 1L IRRIG IRR SCH (15:00)
[2018-08-13] MEDS ORDERED: IOHEXOL 300MG/ML 30 ML BTL ONE (15:24)
[2018-08-13] MEDS ORDERED: morphine 4 MG/ML VIAL ONE (17:32)
[2018-08-13] MEDS: AMIKACIN 1,000 MG in SOD CHLORIDE 0.9% 150 ML IVPB SCH (17:50)
[2018-08-13] MEDS: morphine 4 MG/ML VIAL IV PRN ×2 (17:50→21:48)
[2018-08-13] MEDS: oxyCODONE 5 MG TAB PO PRN ×2 (18:28→22:40)
[2018-08-13 20:15] VITALS: BP 144/82; PULSE 82; RESP 18
[2018-08-14] MEDS: morphine 4 MG/ML VIAL IV PRN ×5 (01:38→17:52)
[2018-08-14 02:30] VITALS: BP 114/56; PULSE 70; RESP 18
[2018-08-14] MEDS: oxyCODONE 5 MG TAB PO PRN ×3 (04:35→20:45)
[2018-08-14] MEDS ORDERED: METHYLPREDNISOLONE 4 MG TAB PO SCH ×5 (07:30→21:00)
[2018-08-14 08:00] VITALS: BP 104/56; PULSE 68; RESP 19
[2018-08-14] MEDS: ENOXAPARIN 40 MG/0.4 ML SYG SC SCH (09:00)
[2018-08-14] MEDS: LACTOBACILLUS RHAMNOSUS CAP PO SCH ×2 (09:15→20:34)
[2018-08-14] MEDS: MAGNESIUM OXIDE 400 MG TAB PO SCH ×2 (09:15→20:34)
--- NOTE | 2018-08-14 10:19 | DS ---
Date/Time of Note Date/Time of Note DATE: 08/14/18 TIME: 10:12 Discharge Summary Admission/Discharge Info Admit Date/Time August 06, 2018 at 18:58 Discharge Date/Time Discharge Diagnosis 28-year-old known paraplegic from history of spinal bifida status post left bilateral NURSE EMERGENCY shunt managed as follows: 1. Acute on chronic right lower extremity osteomyelitis -Continue wound care, follow-up at [facility], home IV antibiotics for 4 weeks 2. Posterior decubiti just abutting on his testicles -Maintained on aggressive wound care and will be discharged with home health for wound care as well 3. Right hip pain with imaging studies confirming degenerative changes of right pubic bone likely due to chronic remodeling -greater trochanteric bursitis and IT band tendinitis per ortho -Patient on steroid therapy due to NSAID and acetaminophen allergy 4. Chronic smoker with obstructive airway disease -Tobacco cessation counseling and reinforcement 5. Multiple allergies to medication including acetaminophen, NSAIDs, latex, 6. Proteus UTI 7. Transaminitis: -Serologic studies from May 2018 negative for hepatitis -Likely secondary to fatty liver and hemangioma noted on MRI , patient counseled on weight loss. Levels have remained steady. No further intervention requirement. Just long-term monitoring. 8. Concern for narcotic seeking behavior . Patient Condition: Stable Consults Podiatry: Phillip Singletary Infectious disease: Bob Galvan MD, PAT CISNEROS Vascular surgery: Ellis Tian MD . Procedures 1. Chest x-ray was reviewed, but due to documentation, this may be the wrong report for this patient. Will notify radiology. 2. Pelvic x-ray showed bilateral ventriculoperitoneal shunts and a chronic deformity of the right pubic bone 3. Hip x-ray again notes deformity of right pubic bone 4. Femoral x-ray was unremarkable on the right 5. Pelvis CT showed posterior gluteal scarring and inflammation of the ischial tuberosities without discrete drainable fluid collection as well as chronic remodeling of the ischial tuberosities but no acute osteomyelitis. It also showed diffuse muscle atrophy, severe right greater than left 6. MRI of the hip: Basically showed findings on pelvis CT above 7. MRI right foot confirms presence of distal tibial/medial malleolus osteomyelitis without additional areas 8. MRI right ankle continues to show acute on chronic osteomyelitis with overlying skin ulceration without drainable fluid. 9. Liver ultrasound: Showed fatty liver, 2.1 echogenic mass in the right lobe concerning for possible hemangioma, recommend liver MRI with contrast 10. Abdominal MRI with IV contrast: Shows benign hepatic hemangioma corresponding to abnormality on ultrasound, moderate hepatic steatosis, constipation, supraumbilical ventral hernia without incarceration, status post cholecystectomy 11. Port-A-Cath placement August 13, 2018 non-complicated. . Hospital Course 28-year-old chronically paraplegic male from spinal bifida status post bilateral NURSE EMERGENCY shunt, with history of recurrent osteomyelitis, decubiti, recurrent urinary tract infection who was sent to us from the am[facility] [place] where he follows for concern for right lower extremity cellulitis and poorly healing wound. He was also complaining about pain in his right hip radiating to his anterior thigh. For these 2 studies, he had a very extensive work-up. He was also found to have a chronic stage III ulcer, decubiti. Findings are summarized as above. At this time, his hip problems are likely from bursitis and tendinitis, and due to the fact that patient is allergic to acetaminophen and NSAIDs, orthopedic surgery has recommended steroids. For his osteomyelitis, based on his culture results, he will need IV antibiotics for 4 weeks per ID. He also had a Proteus UTI. Note that patient has had recurrent urinary tract infections from his chronic paraplegia. His discharge was delayed because we needed to secure intravenous access for IV antibiotics. As patient has had multiple central lines placed in the past, bedside attempts to place PICC line as well as midline very unsuccessful. Eventually after vascular surgical consultation, buttock that was ordered. Radiology was able to assist in Port-A-Cath placement without complications. Hence at this time patient is stable to be discharged home with IV antibiotics. Of note is that 5 transaminitis he also had a liver ultrasound diagnosed showed moderate hepatic steatosis and there was concern for possible hemangioma. This was confirmed on MRI with contrast to be benign. No further work-up is required at this time, patient would just need serial monitoring of his liver enzymes and of his benign liver hemangioma. He was counseled on the need for good dietary practices and possible weight loss to help with hepatic steatosis. . Home Meds No Active Prescriptions or Reported Meds Follow-up Plan Patient is going home with home health for IV antibiotics and will follow-up at [facility] Amputation [address] [id number] [phone] . Primary Care Provider Not On Staff Doctor Time spent on discharge: > 30 minutes Pending Labs Laboratory Tests Test 08/13/18 10:27 White Blood Count 13.7 10^3/ul (4.8-10.8) Red Blood Count 5.44 10^6/ul (4.70-6.10) Hemoglobin 15.3 g/dl (14.0-18.0) Hematocrit 48.3 % (42.0-52.0) Mean Corpuscular Volume 88.8 fl (82.0-101.0) Mean Corpuscular Hemoglobin 28.1 pg (29.0-33.0) Mean Corpuscular Hemoglobin Concent 31.7 g/dl (32.0-37.0) Red Cell Distribution Width 13.5 % (11.5-14.5) Platelet Count 305 10^3/UL (140-415) Mean Platelet Volume 9.5 fl (7.4-10.4) Immature Granulocytes % 1.100 % (0.001-0.429) Neutrophils % 69.8 % (39.0-77.0) Lymphocytes % 17.9 % (15.0-51.0) Monocytes % 10.5 % (0.0-11.0) Eosinophils % 0.4 % (0.0-7.0) Basophils % 0.3 % (0.0-2.0) Nucleated Red Blood Cells % 0.0 /100WBC (0.0-0.0) Immature Granulocytes # 0.150 10^3/ul (0.0-0.031) Neutrophils # 9.5 10^3/ul (1.6-7.5) Lymphocytes # 2.4 10^3/ul (0.8-2.9) Monocytes # 1.4 10^3/ul (0.3-0.9) Eosinophils # 0.1 10^3/ul (0.0-0.5) Basophils # 0.0 10^3/ul (0.0-0.1) Nucleated Red Blood Cells # 0.0 10^3/ul (0.0-0.0) Sodium Level 143 mmol/L (135-144) Potassium Level 4.6 mmol/L (3.5-5.1) Chloride Level 111 mmol/L (97-110) Carbon Dioxide Level 22 mmol/L (21-31) Anion Gap 10 (5-13) Blood Urea Nitrogen 33 mg/dl (7-20) Creatinine 0.49 mg/dl (0.61-1.24) Est Glomerular Filtrat Rate mL/min > 60 mL/min (>60) Glucose Level 124 mg/dl (70-220) Calcium Level 9.5 mg/dl (8.4-10.2) Magnesium Level 1.9 mg/dl (1.7-2.5) YESSY LEON August 14, 2018 10:19
--- NOTE | 2018-08-14 12:45 | CONS ---
Assessment/Plan Assessment/Plan Hospital Course (Demo Recall) no acute events, looks comfortable, refused bld draw for Amikacin level Urine culture grew Proteus mirabilis, blood cultures remain negative Antimicrobials: Amikacin Physical examination: Well-developed obese middle-aged man who is awake in no distress head atraumatic normocephalic sclera nonicteric vehicle mucosa pink neck is supple chest rise symmetrical breath sounds clear heart S1-S2 abdomen soft bowel sounds present extremities without cyanosis patient has wound VAC to his right ankle Assessment: 1. Right ankle chronic ulceration with chronic osteomyelitis==> wound cx + MDRO 2. UTI 3. Spina bifida 4. Obesity 5. Incomplete paraplegia Plan: Stable, s/p R chest pcath 08/13/18, change abx to Cefepime 2 to noncompliance for levels check, continue for 4 more weeks Consultation Date/Type/Reason Admit Date/Time August 06, 2018 at 18:58 Initial Consult Date 08/10/18 Type of Consult id Date/Time of Note DATE: 08/14/18 TIME: 12:44 Exam/Review of Systems Exam Vitals Vital Signs Date Temp Pulse Resp B/P (MAP) Pulse Ox O2 O2 Flow FiO2 Time Delivery Rate 08/14/18 98.0 68 19 104/56 94 Room Air 08:00 (72) 08/10/18 21 15:41 Intake and Output 08/13/18 08/13/18 08/14/18 1515:00 23:00 07:00 IntakeIntake Total 634 ml 480 ml BalanceBalance 634 ml 480 ml Results Result Diagram: 08/13/18 1027 08/13/18 1027 Medications Medication Current Medications IV Flush (NS 3 ml) 3 ml PER PROTOCOL IV ; Start 08/06/18 at 19:00 Acetaminophen (Tylenol Tab) 650 mg Q6H PRN PO .PAIN 1-3 OR TEMP; Start 08/06/18 at 19:00; Status Hold Phenol (Cepastat Lozenge) 1 lozenge Q1H PRN MT sore throat Last administered on 08/12/18at 12:38; Admin Dose 1 LOZENGE; Start 08/06/18 at 23:30 Miscellaneous Information (Pending [facility] Order For Wound Care) This patient lorenzana... PRN PRN XX WOUND CARE; Start 08/07/18 at 06:00 Enoxaparin Sodium (Lovenox) 40 mg DAILY SC Last administered on 08/11/18at 08:53; Admin Dose 40 MG; Start 08/08/18 at 09:00 Lactobacillus Acidophilus/ Rhamnosus (Culturelle) 1 cap BID PO Last administered on 08/14/18at 09:15; Admin Dose 1 CAP; Start 08/07/18 at 21:00 Ondansetron HCl (Zofran Inj) 4 mg Q4H PRN IV NAUSEA/VOMITING; Start 08/08/18 at 13:30 Oxycodone/ Acetaminophen (Endocet (10/ 325)) 1 tab Q3 PRN PO MODERATE PAIN LEVEL 4-6; Start 08/09/18 at 14:30; Status Hold Magnesium Oxide (Mag-Ox 400) 400 mg BID PO Last administered on 08/14/18at 09:15; Admin Dose 400 MG; Start 08/09/18 at 21:00 Guaifenesin/ Dextromethorphan (Robitussin Dm Liquid Cup) 10 ml Q4H PRN PO COUGH Last administered on 08/12/18at 12:38; Admin Dose 10 ML; Start 08/09/18 at 15:00 Oxycodone HCl (Roxicodone) 5 mg Q6 PRN PO MODERATE PAIN LEVEL 4-6; Start 08/10/18 at 14:30 Oxycodone HCl (Roxicodone) 10 mg Q6 PRN PO PAIN LEVEL 7-10 Last administered on 08/14/18at 12:25; Admin Dose 10 MG; Start 08/10/18 at 14:30 Albuterol/ Ipratropium (Duoneb) 3 ml Q2H RESP THERAPY PRN HHN Intractable cough, wheezing; Start 08/10/18 at 15:00 Amikacin Sulfate (Amikacin Iv Per Pharmacy) AMIKACIN PER PHARMACY NOTE XX ; Start 08/11/18 at 15:00 Amikacin Sulfate 1000 mg/Sodium Chloride 154 ml @ 154 mls/hr Q24H IVPB Last administered on 08/13/18at 17:50; Admin Dose 154 MLS/HR; Start 08/11/18 at 18:00 Methylprednisolone (Medrol Dose Pack) ay 1: 24 mg on day 1, administe... STD DOSE PACK PO ; Start 08/12/18 at 13:00; Stop 08/17/18 at 12:59 Methylprednisolone (Medrol) 4 mg AC BREAKFAST PO Last administered on 08/14/18at 09:15; Admin Dose 4 MG; Start 08/14/18 at 07:30; Stop 08/18/18 at 07:31 Methylprednisolone (Medrol) 4 mg PC LUNCH PO Last administered on 08/14/18at 12:26; Admin Dose 4 MG; Start 08/14/18 at 13:00; Stop 08/16/18 at 13:01 Methylprednisolone (Medrol) 4 mg PC DINNER PO ; Start 08/14/18 at 19:05; Stop 08/15/18 at 19:06 Methylprednisolone (Medrol) 8 mg HS PO ; Start 08/14/18 at 21:00; Stop 08/14/18 at 21:01 Methylprednisolone (Medrol) 4 mg HS PO ; Start 08/15/18 at 21:00; Stop 08/17/18 at 21:01 Morphine Sulfate (morphine) 4 mg Q4H PRN IV .PAIN 7-10 Last administered on 08/14/18at 09:35; Admin Dose 4 MG; Start 08/13/18 at 21:00 PAT RODRIGUEZ NP August 14, 2018 12:45
[2018-08-14 14:00] VITALS: BP 140/77; PULSE 72; RESP 18
[2018-08-14] MEDS ORDERED: CEFE2PIG IV (15:46)
[2018-08-14] MEDS ORDERED: LACT1CAP28 PO (15:46)
[2018-08-14] MEDS ORDERED: MED4DP PO (15:46)
[2018-08-14] MEDS ORDERED: MULTI PO (15:47)
[2018-08-14] MEDS ORDERED: ZINC220C5 PO (15:47)
--- NOTE | 2018-08-14 15:48 | PDOCDIS ---
Discharge Instructions DIAGNOSIS Discharge Diagnosis . CONDITION [id number] Patient Condition: [id number] Stable HOME CARE INSTRUCTIONS: [id number] Diet Instructions: [id number] Low Fat /Cholesterol ACTIVITY: [id number] Activity Restrictions: [id number] Slowly Increase Activity Rest between Activity FOLLOW UP/APPOINTMENTS Follow-up Plan Patient is going home with home health for IV antibiotics and will follow-up at [facility] [place] [id number] [phone] . YESSY LEON August 14, 2018 15:48
--- NOTE | 2018-08-14 19:52 | CONS ---
Assessment/Plan Assessment/Plan Assessment/Plan (Daily) Right ankle neuropathic chronic ulceration Right lower extremity osteomyelitis Spina Bifida Paraplegia Tobacco/marijuana abuse Plan Continue with abx therapy as recommended. Appreciate vascular surgery input. Continue wound VAC therapy. Offload heels with pillows. No surgical plan at this time. Discussed outpatient follow up and possible HBO therapy in outpatient setting. Patient will need home VAC and continue home health care with 3 times a week dressing changes. Patient stable from podiatry standpoint. Consultation Date/Type/Reason Admit Date/Time August 06, 2018 at 18:58 Initial Consult Date Date/Time of Note DATE: 08/14/18 TIME: 19:52 24 HR Interval Summary Free Text/Dictation No acute events overnight. Exam/Review of Systems Exam Vitals Vital Signs Date Temp Pulse Resp B/P (MAP) Pulse Ox O2 O2 Flow FiO2 Time Delivery Rate 08/14/18 98.0 72 18 140/77 95 Room Air 14:00 (98) 08/10/18 21 15:41 Intake and Output 08/13/18 08/13/18 08/14/18 1515:00 23:00 07:00 IntakeIntake Total 634 ml 480 ml BalanceBalance 634 ml 480 ml Exam DP/PT pulses palpable Absent protective sensations Absent muscle strength to the lower extremity Mild pain on palpation to the right ankle ulceration site Wound VAC dressings clean dry and intact with scant serous drainage to the canister working at 125mmHg low continuous therapy. Results Result Diagram: 08/13/18 1027 08/13/18 1027 Medications Medication Current Medications IV Flush (NS 3 ml) 3 ml PER PROTOCOL IV ; Start 08/06/18 at 19:00 Acetaminophen (Tylenol Tab) 650 mg Q6H PRN PO .PAIN 1-3 OR TEMP; Start 08/06/18 at 19:00; Status Hold Phenol (Cepastat Lozenge) 1 lozenge Q1H PRN MT sore throat Last administered on 08/12/18at 12:38; Admin Dose 1 LOZENGE; Start 08/06/18 at 23:30 Miscellaneous Information (Pending [facility] Order For Wound Care) This patient lorenzana... PRN PRN XX WOUND CARE; Start 08/07/18 at 06:00 Enoxaparin Sodium (Lovenox) 40 mg DAILY SC Last administered on 08/11/18at 08:53; Admin Dose 40 MG; Start 08/08/18 at 09:00 Lactobacillus Acidophilus/ Rhamnosus (Culturelle) 1 cap BID PO Last administered on 08/14/18at 09:15; Admin Dose 1 CAP; Start 08/07/18 at 21:00 Ondansetron HCl (Zofran Inj) 4 mg Q4H PRN IV NAUSEA/VOMITING; Start 08/08/18 at 13:30 Oxycodone/ Acetaminophen (Endocet (10/ 325)) 1 tab Q3 PRN PO MODERATE PAIN LEVEL 4-6; Start 08/09/18 at 14:30; Status Hold Magnesium Oxide (Mag-Ox 400) 400 mg BID PO Last administered on 08/14/18 09:15; Admin Dose 400 MG; Start 08/09/18 at 21:00 Guaifenesin/ Dextromethorphan (Robitussin Dm Liquid Cup) 10 ml Q4H PRN PO COUGH Last administered on 08/12/18at 12:38; Admin Dose 10 ML; Start 08/09/18 at 15:00 Oxycodone HCl (Roxicodone) 5 mg Q6 PRN PO MODERATE PAIN LEVEL 4-6; Start 08/10/18 at 14:30 Oxycodone HCl (Roxicodone) 10 mg Q6 PRN PO PAIN LEVEL 7-10 Last administered on 08/14/18at 12:25; Admin Dose 10 MG; Start 08/10/18 at 14:30 Albuterol/ Ipratropium (Duoneb) 3 ml Q2H RESP THERAPY PRN HHN Intractable cough, wheezing; Start 08/10/18 at 15:00 Methylprednisolone (Medrol Dose Pack) ay 1: 24 mg on day 1, administe... STD DO SE PACK PO ; Start 08/12/18 at 13:00; Stop 08/17/18 at 12:59 Methylprednisolone (Medrol) 4 mg AC BREAKFAST PO Last administered on 08/14/18at 09:15; Admin Dose 4 MG; Start 08/14/18 at 07:30; Stop 08/18/18 at 07:31 Methylprednisolone (Medrol) 4 mg PC LUNCH PO Last administered on 08/14/18 12:26; Admin Dose 4 MG; Start 08/14/18 at 13:00; Stop 08/16/18 at 13:01 Methylprednisolone (Medrol) 4 mg PC DINNER PO ; Start 08/14/18 at 19:05; Stop 08/15/18 at 19:06 Methylprednisolone (Medrol) 8 mg HS PO ; Start 08/14/18 at 21:00; Stop 08/14/18 at 21:01 Methylprednisolone (Medrol) 4 mg HS PO ; Start 08/15/18 at 21:00; Stop 08/17/18 at 21:01 Morphine Sulfate (morphine) 4 mg Q4H PRN IV .PAIN 7-10 Last administered on 08/14/18at 17:52; Admin Dose 4 MG; Start 08/13/18 at 21:00 Cefepime HCl 50 ml @ 100 mls/hr Q12 IVPB ; Start 08/14/18 at 21:00 LUCINA RINALDI DPM August 14, 2018 19:52
[2018-08-14 20:00] VITALS: BP 142/65; PULSE 61; RESP 20
[2018-08-14] MEDS: CEFEPIME 2GM/50 ML IVPB SCH (21:00)
[2018-08-15] MEDS ORDERED: METHYLPREDNISOLONE 4 MG TAB PO SCH (21:00)
== END 2018-08-14 07:54 | disposition home health service (06) | DRG 637 ==
LOC: E/R 11:36 → PP2 18:58
PROVIDERS: ADMIT Internal Medicine; ATTEND Family Medicine
PROC: 0JH63XZ Insertion of Tunneled Vascular Access Device into Chest Subcutaneous Tissue and Fascia, Percutaneous Approach (ICD-10-PCS; principal; 2018-08-13)
PROC: 02H633Z Insertion of Infusion Device into Right Atrium, Percutaneous Approach (ICD-10-PCS; 2018-08-13)
DX: E11.69 Type 2 diabetes mellitus with other specified complication (principal); L89.153 Pressure ulcer of sacral region, stage 3; L89.893 Pressure ulcer of other site, stage 3; N39.0 Urinary tract infection, site not specified; G82.20 Paraplegia, unspecified; L97.319 Non-pressure chronic ulcer of right ankle with unspecified severity; M86.161 Other acute osteomyelitis, right tibia and fibula; M86.661 Other chronic osteomyelitis, right tibia and fibula; Q05.9 Spina bifida, unspecified; L08.9 Local infection of the skin and subcutaneous tissue, unspecified; F17.200 Nicotine dependence, unspecified, uncomplicated; E11.622 Type 2 diabetes mellitus with other skin ulcer; M70.61 Trochanteric bursitis, right hip; J98.8 Other specified respiratory disorders; B96.4 Proteus (mirabilis) (morganii) as the cause of diseases classified elsewhere; Z98.2 Presence of cerebrospinal fluid drainage device
CPT/HCPCS: 36561; 71045; 72170; 72192; 73510; 73550; 73718; 73721; 74182; 76705; 76942; 80048; 80053; 80061; 80202; 81001; 83036; 83605; 83735; 84145; 84443; 84484; 85025; 85610; 85651; 85730; 86140; 87081; 87086; 93005; 93922; 94664; 96374; C1788; J0278; J0690; J0692; J0744; J1170; J1644; J1650; J2270; J3010; J3370; J7030; J7040; J7509; Q9967